=== PATIENT | male | born 1960 | race Caucasian/White ===

== ENCOUNTER 2020-09-06 03:50 | Emergency (ER) | payer OTHER, BC, SELFPAY ==
[2020-09-06] VITALS (8 sets, daily range): BP systolic 103–134; BP diastolic 68–85; PULSE 97–120; RESP 16–20; O2SAT 97–99; BMI 41.5
--- NOTE | ~2020-09-06 | XR_ITS ---
EXAMINATION: XR KNEE, LEFT CLINICAL INFORMATION: [place] a pop, slipped with increasing pain, swelling COMPARISON: None TECHNIQUE: Four views of the left knee. FINDINGS: Osseous alignment is anatomic. There is moderate degenerative change of the patellofemoral compartment with joint space narrowing and spurring. Mild spurring is present at the medial and lateral compartments, with mild medial joint space narrowing. No acute fracture is seen. Small effusion is noted. XR/XR knee LT 4V IMPRESSION: Small effusion. Degenerative changes, most prominently in the patellofemoral compartment.
--- NOTE | 2020-09-06 04:36 | ED_ITS ---
HPI - Extremity Injury (Lower) General Chief Complaint: Extremity Injury, Lower Stated Complaint: potential broken left knee cap Time Seen by Provider: 09/06/20 04:36 Source: patient Mode of arrival: ambulatory History of Present Illness HPI Narrative: 60-year-old male with history of atrial fibrillation, right lower extremity amputee who presents with having slipped and injured his left knee but and able to recall exact mechanism other than patient states that he ?felt a pop?. He and his got home at approximately 2:00 p.m. yesterday and he has been elevating and icing the leg since that time, however he states that the pain has progressively worsened but denies any numbness/tingling distal to the knee. Shortness of breath, chest pain/palpitations. Related Data Previous Rx's Medication Instructions Recorded amoxicillin-pot clavulanate 1 tab PO Q12H 5 Days #10 tab 09/06/20 [Augmentin] Allergies Allergy/AdvReac Type Severity Reaction Status Date / Time azithromycin Allergy Unknown Verified 09/06/20 04:02 Review of Systems Review of Systems: Pertinent positives and negatives as stated in HPI 10 point review of systems is otherwise negative. [facility] Past Medical History Source: nursing notes reviewed Medical History Afib Amputated right leg Surgical History History of cholecystectomy Social History Social History Advance Directives: No Advance Directives Information Provided: No Physical Exam Vital Signs: Vital Signs: Last Vital Signs Pulse 106 H 09/06/20 06:58 Resp 16 09/06/20 06:58 BP 125/81 09/06/20 06:58 Pulse Ox 99 09/06/20 06:58 Body Mass Index 41.5 VITAL SIGNS: Reviewed. GENERAL: Well developed, well nourished, in no acute distress. HEAD: Normocephalic/atraumatic EYES: PERRLA, EOMI OROPHARYNX: no oral lesions noted, posterior pharynx clear LUNGS: Normal breath sounds. No adventitious sounds or accessory muscle use. SpO2<99> CARDIOVASCULAR: Regular rate and rhythm without noted murmurs, NO JVD AND NO LOWER EXTREMITY EDEMA ABDOMEN: Soft, non-tender, non-distended with bowel sounds. LEFT KNEE: SWELLING, TENDERNESS TO PALPATION ALONG BOTH LATERAL/MEDIAL TIBIAL PLATEAU WITH GOOD MOVEMENT OF THE PATELLA BUT NO ECCHYMOSIS NOTED, CLARISSA ROVASCULARLY INTACT SKIN: Inspection of the skin reveals no rashes NEUROLOGIC: Alert and oriented x 4. Strength and sensation to light touch were grossly intact x 4. Course Course Course Narrative: 60-year-old male with history and clinical presentation consistent with left knee injury. After patient endorsed that he has a history of atrial fibrillation he was placed on a monitor and was noted to be in atrial fibrillation with RVR. At this point lab work, EKG, as well as left knee imaging was obtained. And patient was provided with 5 mg in total of Lopressor. Review of all laboratory results patient was noted to be mildly hypokalemic and was provided with 60 mEq of potassium chloride and it was also noted that patient had elevated T bili/AST without evidence of hepatobiliary findings on history or clinical exam. 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 On re-evaluation after patient received 5 mg of Lopressor his heart rate is noted to be in the low 100s with good maintenance of blood pressure and he will be discharged in stable condition with instructions to follow-up with his primary care provider today regarding better rate control, his elevated liver enzymes, the red swollen area at his right BKA and finally the left knee pain. MDM - Extremity Injury (Lower) Lab Data Result diagrams: 09/06/20 05:04 09/06/20 05:04 Labs: Lab Results 09/06/20 09/06/20 09/06/20 Range/Units 05:04 05:04 05:04 WBC 10.1 (4.8-10.8) X10*3/uL RBC 4.46 L (4.60-5.80) X10*6/uL Hgb 15.2 (14.0-18.0) g/dl Hct 43.1 (42-52) % MCV 96.6 (80-98) fL MCH 34.1 H (27.0-33.0) pg MCHC 35.3 (31.0-36.0) g/dl RDW 12.6 (11.0-16.0) % Plt Count 214 (160-400) X10*3/uL MPV 9.8 (9.4-12.4) fL Immature Gran % (Auto) 0.2 (0.0-0.4) % Neut % (Auto) 71.8 (45-73) % Lymph % (Auto) 8.5 L (20-40) % [place] % (Auto) 19.0 H (2-11) % Eos % (Auto) 0.0 (0-4) % Baso % (Auto) 0.5 (0-2) % Lymph # (Auto) 0.9 L (1.2-4.9) X10*3/uL [place] # (Auto) 1.9 H (0.1-1.2) X10*3/uL Eos # (Auto) 0.0 (0.0-0.4) X10*3/uL Baso # (Auto) 0.1 (0.0-0.2) X10*3/uL Abs Immat Gran (auto) 0.02 (0.00-0.03) X10*3/uL Absolute Neuts (auto) 7.3 (2.0-8.3) X10*3/uL Absolute Nucleated RBC 0.000 (0.0-0.012) X10*3/uL Nucleated RBC % (auto) 0.0 (0.0-0.2) /100WBC Smear Tech's Comments VERIFIED PT 25.7 H (9.9-13.0) SEC INR 2.2 H (0.9-1.1) Sodium 137 (135-145) mmol/L Potassium 3.2 L (3.3-5.1) mmol/L Chloride 99 (96-108) mmol/L Carbon Dioxide 26 (22-29) mmol/L Anion Gap 15 (12-20) BUN 13 (9-16) mg/dL Creatinine 0.81 (0.5-1.4) mg/dL Estim Creat Clear Calc 162.6 Estimated GFR > 60 Random Glucose 144 H (60-115) mg/dL Calcium 9.0 (8.4-10.2) mg/dL Total Bilirubin 3.4 H (0.0-1.0) mg/dL AST 58 H (5-37) U/L ALT 34 (0-40) U/L Alkaline Phosphatase 65 (39-117) U/L Total Protein 6.7 (6.5-8.0) g/dL Albumin 3.8 (3.5-5.0) g/dL ECG Data Attestation: I personally reviewed and interpreted this ECG as follows: Prior ECG tracings: available for review (04/27/2002 acute changes as patient has been diagnosed with atrial fibrillation since this time but receives care [facility] Interpretation: Atrial fibrillation with RVR, HR-116, no STEMI, QRS within normal limits Discharge Plan Discharge Clinical Impression: Hypokalemia, Atrial fibrillation, Cellulitis, Elevated liver enzymes, Knee pain, left Patient Disposition: Home, Self-Care Instructions: A-fib (Atrial Fibrillation) (ED), Cellulitis (ED), Hypokalemia (ED), Knee Pain (ED) Additional Instructions: 1. Resume all home medications as prescribed. 2. Please follow-up with your primary care provider to day and discuss the following: - hypokalemia (3.2) - total bilirubin-3.4 - AST-58 - infection at right lower extremity soft tissue (started on antibiotics) - consideration for heart medication adjustment - left knee pain Return to the ER for acute worsening of symptoms. Prescriptions: New amoxicillin-pot clavulanate [Augmentin] 875-125 mg tablet 1 tab PO Q12H 5 Days Qty: 10 RF: 0 Referrals: Physician,Unknown [Primary Care Provider] - 2 days
--- NOTE | 2020-09-06 04:39 | ECG_ITS ---
Test Reason : AFIB Blood Pressure : / mmHG Vent. Rate : 116 BPM Atrial Rate : 125 BPM P-R Int : 000 ms QRS Dur : 096 ms QT Int : 360 ms P-R-T Axes : 000 022 -14 degrees QTc Int : 500 ms Atrial fibrillation with rapid ventricular response Nonspecific ST abnormality Abnormal ECG When compared with ECG of 27-APR-2002 07:09, Atrial fibrillation has replaced Sinus rhythm Vent. rate has increased BY 66 BPM Nonspecific T wave abnormality now evident in Anterior leads Referred By: Lexy Mac Electronically Signed By:Nathan Rosario
[2020-09-06 05:09] LABS: Basophils Absolute Auto 0.1 X10*3/uL (0.0-0.2); Basophils Percent Auto 0.5 % (0-2); Hematocrit 43.1 % (42-52); Hemoglobin 15.2 g/dl (14.0-18.0); Imm Gran Abs Auto 0.02 X10*3/uL (0.00-0.03); Imm Gran Pct Auto 0.2 % (0.0-0.4); Lymphocytes Absolute Auto 0.9 X10*3/uL (1.2-4.9); Lymphocytes Percent Auto 8.5 % (20-40); Mean Corpuscular HGB Conc 35.3 g/dl (31.0-36.0); Mean Corpuscular Hemoglobin 34.1 pg (27.0-33.0); Mean Corpuscular Volume 96.6 fL (80-98); Mean Platelet Volume 9.8 fL (9.4-12.4); Monocytes Absolute Auto 1.9 X10*3/uL (0.1-1.2); Neutrophils Absolute Auto 7.3 X10*3/uL (2.0-8.3); Neutrophils Percent Auto 71.8 % (45-73); Platelet Count 214 X10*3/uL (160-400); Red Blood Count 4.46 X10*6/uL (4.60-5.80); Red Cell Distribution Width 12.6 % (11.0-16.0); SCAN SMEAR FLAG 1; White Blood Count 10.1 X10*3/uL (4.8-10.8)
[2020-09-06] MEDS: Acetaminophen 325 MG TABLET 975 MG PO (05:09)
[2020-09-06 05:10] LABS: MANUAL DIFF FLAG SCAN
[2020-09-06] MEDS: Ketorolac Tromethamine 15 MG/ML VIAL IVPUSH (05:10)
[2020-09-06 05:16] LABS: INTERNATIONAL NORM RATIO 2.2 (0.9-1.1); Prothrombin Time 25.7 SEC (9.9-13.0)
[2020-09-06 05:26] LABS: SLIDE REVIEW VERIFIED
[2020-09-06 05:38] LABS: Alanine Aminotransferase 34 U/L (0-40); Albumin Level 3.8 g/dL (3.5-5.0); Alkaline Phosphatase 65 U/L (39-117); Anion Gap 15 (12-20); Aspartate Amino Transferase 58 U/L (5-37); Bilirubin Total 3.4 mg/dL (0.0-1.0); Blood Urea Nitrogen 13 mg/dL (9-16); Carbon Dioxide 26 mmol/L (22-29); Chloride 99 mmol/L (96-108); Creatinine Clr Calc Pharmacy 162.6; Estimated Glomerular Filt Rate > 60; Glucose Random 144 mg/dL (60-115); Potassium 3.2 mmol/L (3.3-5.1); Sodium 137 mmol/L (135-145); Total Protein 6.7 g/dL (6.5-8.0)
[2020-09-06] MEDS: Metoprolol Tartrate 5 MG/5 ML VIAL 2.5 MG IVPUSH ×2 (06:14→06:49)
[2020-09-06] MEDS: Potassium Chloride ER 20 MEQ TAB.ER.PRT 60 MEQ PO (06:53)
== END 2020-09-06 07:56 | disposition home or self-care (01) ==
PROVIDERS: Emergency Provider Student in an Organized Health Care Education/Training Program
DX: M25.562 Pain in left knee (principal); E87.6 Hypokalemia; L03.115 Cellulitis of right lower limb; R74.8 Abnormal levels of other serum enzymes; I48.91 Unspecified atrial fibrillation; Z89.511 Acquired absence of right leg below knee
CPT/HCPCS: 36415; 73564; 80053; 85025; 85610; 93005; 96374; 96375; 99284; J1885

== ENCOUNTER 2024-05-04 01:51 | Inpatient (IN) | payer OTHER, SELFPAY ==
[2024-05-04] VITALS (9 sets, daily range): BP systolic 113–150; BP diastolic 64–95; PULSE 100–120; RESP 16–20; TEMP 36.4–37.1; O2SAT 95–98; BMI 38.9; BMI 34.9; BMI 36.5
--- NOTE | 2024-05-04 | ECG_ITS ---
Test Reason : TACHY Blood Pressure : */* mmHG Vent. Rate : 110 BPM Atrial Rate : * BPM P-R Int : * ms QRS Dur : 92 ms QT Int : 346 ms P-R-T Axes : * 9 262 degrees QTcB Int : 468 ms Atrial fibrillation with rapid ventricular response Nonspecific T wave abnormality Abnormal ECG When compared with ECG of 06-Sep-2020 05:19, Nonspecific T wave abnormality now evident in Lateral leads Referred By: Generic ED Physician Electronically Signed By: PENELOPE SHETTY
--- NOTE | ~2024-05-04 | MR_ITS ---
CLINICAL HISTORY: new onset seizures,motion degraded images, best obtainable, exam ended due to safet y concern, no contrast given MR brain without contrast. COMPARISON: CT head dated 05/04/24 at 02:30 EDT FINDINGS: Evaluation of multiple sequences is limited secondary to motion artifact. No abnormal diffusion restriction in the brain parenchyma or extra-axial spaces. No evidence of mass, mass effect or midline shift. No intracranial hemorrhage or abnormal extra-axial fluid collection. The ventricles are proportional with the degree of mild cerebral volume loss without evidence of hydrocephalus. Basilar cisterns are patent. Cerebellar hemispheres and cerebellar vermis are normal. Fourth ventricle is normal. No brainstem abnormality is identified. Intracranial flow voids are patent. The visualized paranasal sinuses and mastoid air-cells are clear. IMPRESSION: 1. Motion artifact limits evaluation portions of the study. Within limits of study, no acute intracranial injury. No evidence of acute ischemia, mass or mass effect. This document has been electronically signed by: Elder Ta MD on 05/04/2024 18:52:17
--- NOTE | ~2024-05-04 | CT_ITS ---
CLINICAL HISTORY: Altered mental status, possible seizure, R O CT head without contrast Comparison: None Findings: No intra-axial mass, midline shift, hydrocephalus, or acute hemorrhage. Mild atrophy like change. There is no sinus or mastoid fluid. The orbits are unremarkable. There is no acute fracture. IMPRESSION: 1. No acute intracranial findings. This document has been electronically signed by: Chrystal Nicholson MD on 05/04/2024 03:36:58
--- NOTE | ~2024-05-04 | XR_ITS ---
EXAMINATION: XR SHOULDER, RIGHT CLINICAL INFORMATION: pain, fall COMPARISON: None available. TECHNIQUE: AP external rotation, Grashey, scapular Y, and axillary views of the right shoulder. FINDINGS: Normal bone mineralization. No fracture, dislocation, or suspicious bone lesion. Normal alignment. The glenohumeral joint demonstrates mild to moderate osteoarthrosis with small subcapital and undersurface glenoid spurs. The AC joint is normal. There is a type II acromion. No undersurface spurring. The subacromial space is preserved. Remainder of the soft tissue and bony structures appear normal. XR/XR shoulder RT min 2V IMPRESSION: 1. Mild to moderate glenohumeral joint osteoarthrosis. 2. No acute bony abnormalities. Otherwise normal exam. Electronically signed by: Herber Nicholson MD 05/05/2024 08:34 AM EDT
[2024-05-04 02:14] LABS: Basophils Absolute Auto 0.1 X10*3/uL (0.0-0.2); Basophils Percent Auto 0.5 % (0-2); Eosinophils Percent Auto 0.3 % (0-4); Hematocrit 44.2 % (42.0-52.0); Hemoglobin 15.3 g/dl (14.0-18.0); Imm Gran Abs Auto 0.04 X10*3/uL (0.00-0.03); Imm Gran Pct Auto 0.4 % (0.0-0.4); Lymphocytes Absolute Auto 0.7 X10*3/uL (1.2-4.9); Lymphocytes Percent Auto 7.7 % (20-40); MANUAL DIFF FLAG NO; Mean Corpuscular HGB Conc 34.6 g/dl (31.0-36.0); Mean Corpuscular Hemoglobin 29.6 pg (27.0-33.0); Mean Corpuscular Volume 85.5 fL (80.0-98.0); Mean Platelet Volume 9.5 fL (9.4-12.4); Monocytes Absolute Auto 0.4 X10*3/uL (0.1-1.2); Monocytes Percent Auto 4.4 % (2-11); Neutrophils Absolute Auto 8.2 x10*3/uL (2.0-8.3); Neutrophils Percent Auto 86.7 % (45-73); Platelet Count 274 X10*3/uL (160-400); Red Blood Count 5.17 X10*6/uL (4.60-5.80); Red Cell Distribution Width 18.6 % (11.0-16.0); White Blood Count 9.5 X10*3/uL (4.8-10.8)
--- OUTSIDE RECORDS SUMMARY | 2024-05-04 02:23 | XMS_ITS | Encounter Summary ---
Author Name [facility] [place] [facility] [place] Address [address] [place] [address] Care Team Providers Care Bridge Mechanic Name Role Phone JUAN GOMEZ Primary Care Provider Unavaileddie ble Insurance Providers: All historical and current Section Date Range: From patient's date of to the date document was created. This section includes the names of all active insurance providers for the patient. Insurance Provider Type of Coverage Plan Name Start of Policy Coverage End of Policy Coverage Group Number Member ID Insurance Provider's Telephone Number Policy Carr's Name Patient's Relationship to Policy Carr SAEED BCBS CT FEDERAL PREFERRED PROVIDER ORGANIZAT ION (PPO) STAND JESSE FAMIL Y Mar 07, 2000 105 [id number] [phone] JAY KRISHNA PATIENT ANTHEM BCBS FEDERAL PREFERRED PROVIDER ORGANIZAT ION (PPO) STAND JESSE FAMIL Y Mar 07, 2000 105 [id number] JAY KRISHNA PATIENT ANTHEM BCBS FEDERAL PREFERRED PROVIDER ORGANIZAT ION (PPO) STAND JESSE SELF Mar 07, 2000 105 [id number] JAY KRISHNA PATIENT BCBS [place] PREFERRED PROVIDER ORGANIZAT ION (PPO) STAND JESSE FAMIL Y Mar 07, 2000 105 [id number] JAY KRISHNA PATIENT [place] PREFERRED PROVIDER ORGANIZAT ION (PPO) STAND JESSE FAMIL Y Mar 07, 2000 105 [id number] JAY KRISHNA PATIENT [place] DENTAL DENTAL INSURANCE STAND JESSE Mar 07, 2000 DENTAL [id number] 15 JAY KRISHNA PATIENT [place] PREFERRED PROVIDER ORGANIZAT ION (PPO) STAND JESSE FAMIL Y Mar 07, 2000 105 [id number] 15 JAY KRISHNA PATIENT [place] FEDERAL PREFERRED PROVIDER ORGANIZAT ION (PPO) STAND JESSE FAMIL Y Mar 07, 2000 105 [id number] [phone] [id number] JAY KRISHNA PATIENT [place] FEP BCBS PRESCRIPT ION CAREM ARK FEPRX PLAN Mar 07, 2000 [id number] JAY KRISHNA PATIENT [place] FEPRX PLAN PRESCRIPT ION CAREM ARK FEPRX Feb 23, 2010 [id number] JAY KRISHNA PATIENT [place] FEPRX PLAN PRESCRIPT ION CAREM ARK FEPRX Mar 07, 2000 [id number] JAY KRISHNA PATIENT CAREMARK-F EP BCBS PRESCRIPT ION BCBS FEP Feb 23, 2010 [id number] JAY KRISHNA PATIENT CAREMARK-F EP BCBS PRESCRIPT ION FEP CAREM ARK Feb 23, 2010 [id number] JAY KRISHNA PATIENT [place]ARK-F EP BCBS PRESCRIPT ION BCBS FEP PLAN Feb 23, 2010 [id number] JAY KRISHNA PATIENT MEDICARE ([facility]) MEDICARE () PART A May 25, 2011 PART A [id number] [facility] [phone] JAY KRISHNA PATIENT MEDICARE ([facility]) MEDICARE () PART A May 25, 2011 PART A [id number] JAY KRISHNA PATIENT MEDICARE ([facility]) MEDICARE () PART A May 25, 2011 PART A [id number] [facility] [phone] [id number] JAY KRISHNA PATIENT MEDICARE (WNR) MEDICARE (M) PART A May 25, 2011 PART A [id number] [phone] JAY KRISHNA PATIENT MEDICARE (WNR) MEDICARE (M) PART A May 25, 2011 PART A [id number] [facility] JAY KRISHNA PATIENT MEDICARE (WNR) MEDICARE (M) PART A May 25, 2011 PART A [id number] [facility] JAY KRISHNA PATIENT MEDICARE (WNR) MEDICARE (M) PART A May 25, 2011 PART A [id number] JAY KRISHNA PATIENT MEDICARE (WNR) MEDICARE (M) PART A May 25, 2011 PART A [id number] JAY KRISHNA PATIENT Selected Encounter This section includes the information on record at [place] for the Encounter. Date/Time Encounter Type Encounter Description Reason Pro vider Source Apr 22, 2024 11:33 AM Outpatient Encounter ADMIN PAT ACTIVTIES (MASNONCT) IHE Encounter Template Text not used by [place] Plan of Treatment: Future Appointments (+ 6 months) and Future Tests (+/- 45 days) The Plan of Treatment section includes future care activities for the patient from all [place] [facility]. This section includes future appointments and future orders which are active, pending or scheduled. Future Appointments This section includes appointments that were scheduled to occur 6 months from the date of the Encounter, up to a maximum of 20 appointments. The data comes from all [place] treatment facilities. Appointment Date/Time Appointment Type Appointme nt Facility Name Apr 27, 2024 09:30 AM AMBULATORY - MEDICINE [place] [facility] [place] [facility] Apr 27, 2024 10:00 AM AMBULATORY - MEDICINE [place] [facility] [place] [facility] Apr 28, 2024 09:30 AM AMBULATORY - MEDICINE [place] [facility] [place] [facility] May 03, 2024 08:00 AM AMBULATORY - MEDICINE [place] [facility] [place] [facility] May 10, 2024 10:00 AM AMBULATORY - MEDICINE [place] [facility] [place] [facility] June 29, 2024 10:30 AM AMBULATORY - MEDICINE [place] [facility] [place] [facility] Aug 08, 2024 09:30 AM [facility] Aug 09, 2024 11:00 AM AMBULATORY - MEDICINE [facility] Active, Pending, and Scheduled Orders This section includes a listing of several types of active, pending, and scheduled orders, including clinic medications orders, diagnostic test orders, procedure orders and consult orders; where the start date of the order is 45 days before the date of the Encounter or 45 days after the date of theEncounter. The data comes from all [place] treatment facilities. Test Date/Time Test Type Test Details Facility Name Apr 13, 2024 12:00 AM Laboratory - Chemi stry Order BASIC METABOLIC PANEL (non-fasting) BLOOD (SST-SERUM) SP [facility] Apr 25, 2024 12:55 PM Consult Order COMMUNITY CARE-DENTAL GENERAL Cons Hand Cigar Maker's Choice [facility] Apr 27, 2024 12:00 AM Laboratory - Chemi stry Order SURGICAL PATH ORDER SURG PATH SPEC. UNKNOWN [facility] Apr 27, 2024 03:38 PM Consult Order SURGERY/CW M OUTPT Cons Hand Cigar Maker's Choice [facility] May 03, 2024 04:19 PM Consult Order EYEGLASS R EQUEST - 4 SIGHT Cons Hand Cigar Maker's Choice [facility] May 03, 2024 04:19 PM Consult Order EYEGLASS R EQUEST - 4 SIGHT Cons Hand Cigar Maker's Choice [facility] May 03, 2024 04:19 PM Consult Order EYEGLASS R EQUEST - 4 SIGHT Cons Hand Cigar Maker's Choice [facility] Social History: Smoking Status (Most current) and Tobacco Use (All prior to encounter date) This section includes the most current, and the historical, smoking and tobacco- related health factors from the [place] facility where the Encounter took place. Current Smoking Status This section includes the most current smoking, or tobacco-related health factor, from the [place] facility where the Encounter took place. Date/Time Current Smoking Status Comment Facil ity July 24, 2023 10:00 AM VA-TOBACCO FORMER USER [facility] Tobacco Use History This section includes a history of the smoking, or tobacco-related health factors, that were collected on or before the date of the Encounter. The data comes from the [place] facility where the Encounter took place. Date/Time Smoking Status/Tobac co Use Comment Facility July 24, 2023 10:00 AM VA-TOBACCO QUIT 15 YRS OR MORE [place] [facility] [place] [facility] July 14, 2022 03:30 PM VA-TOBACCO FORMER USER [place] [facility] [place] [facility] July 14, 2022 03:30 PM VA-TOBACCO QUIT 15 YRS OR MORE [facility] [place] [facility] Aug 05, 2021 01:00 PM VA-TOBACCO FORMER USER [place] [facility] [place] [facility] Aug 05, 2021 01:00 PM VA-TOBACCO QUIT 5 TO < 15 YRS [place] [facility] [place] [facility] Sep 09, 2019 01:25 PM VA-TOBACCO FORMER USER [place] [facility] [place] [facility] Sep 09, 2019 01:25 PM VA-TOBACCO QUIT 5 TO < 15 YRS [place] [facility] [place] [facility] Dec 04, 2017 10:18 AM VA-TOBACCO FORMER USER [place] [facility] [place] [facility] Dec 04, 2017 10:18 AM VA-TOBACCO QUIT 5 TO < 15 YRS [facility] [place] [facility] May 29, 2017 09:09 AM QUIT TOBACCO USE > 7 YEARS AGO [facility] [place] [facility] Apr 23, 2015 08:21 AM QUIT TOBACCO USE > 7 YEARS AGO [place] [facility] [place] [facility] Apr 23, 2015 08:21 AM QUIT TOBACCO USE 1-7 YEARS AGO [facility] [place] [facility] Mar 06, 2011 11:06 AM QUIT TOBACCO USE 1-7 YEARS AGO [facility] [place] [facility] Apr 08, 2010 10:56 AM CURRENT SMOKER cigar once in a while [facility] [place] [facility] Apr 08, 2010 10:56 AM V1-PT DECLINES REF TO TOBACCO CESS PRGM [place] [facility] [place] [facility] Apr 08, 2010 10:56 AM V1-PT DECLINES TOBACCO CESSATION MEDS [facility] Apr 08, 2010 10:56 AM V1-PT READY TO QUIT TOBACCO USE [facility] Feb 21, 2009 09:16 AM CURRENT SMOKER cigar once in a while [facility] Feb 21, 2009 09:16 AM V1-PT DECLINES REF TO TOBACCO CESS PRGM [facility] Feb 21, 2009 09:16 AM V1-PT DECLINES TOBACCO CESSATION MEDS [facility] Feb 21, 2009 09:16 AM V1-PT THINKING ABOUT QUIT TOBACCO USE [facility] Dec 16, 2007 09:15 AM QUIT TOBACCO USE 1-7 YEARS AGO [facility] Apr 01, 2007 11:08 AM QUIT TOBACCO USE 1-7 YEARS AGO [facility] Sep 28, 2006 08:52 AM QUIT TOBACCO USE IN PAST YEAR [facility] Apr 21, 2006 10:31 AM QUIT TOBACCO USE IN PAST YEAR August 2005 [facility] Dec 16, 2005 10:02 AM CURRENT SMOKER OCCASIONAL CIGAR [facility] May 19, 2001 03:50 PM CURRENT SMOKER see below [facility] Pathology Reports: +/- 30 days of the encounter Pathology Reports For cases when an order for pathology services may have been completed prior to the date of the Encounter, the report list includes the Pathology Reports that were completed up to 30 days before dateof the Encounter. For cases when an order for pathology services may have been completed after the date of the Encounter, the report list also includes the Pathology Reports that were completed up to30 days after date of the Encounter. The data comes from all [facility] facilities. Date/Time Pathology Report Provider Source May 02, 2024 10:07 AM LR SURGICAL PATHOLOGY REPORT: LOCAL TITLE: LR SURGICAL PATHOLOGY REPORT STANDARD TITLE: PATHOLOGY REPORT DATE OF NOTE: MAY 02, 2024@10:07:13 ENTRY DATE: MAY 02, 2024@10:07:13 AUTHOR: RADHA MARTINEZ MD EXP COSIGNER: URGENCY: STATUS: COMPLETED $APHDR Reporting Lab: [facility] [CLIA# [id number]] [address] [place] [address] - - - - - - - - - - - - - - - - - - - - - - - - - - - - - - - - - - - - - - - - MEDICAL RECORD RSURGICAL PATHOLOGY - - - - - - - - - - - - - - - - - - - - - - - - - - - - - - - - - - - - - - - - PATHOLOGY REPORT Accession No. [id number] [id number] - - - - - - - - - - - - - - - - - - - - - - - - - - - - - - - - - - - - - - - - $TEXT Submitted by: CLARK ZUNIGA Date obtained: Apr 27, 2024 - - - - - - - - - - - - - - - - - - - - - - - - - - - - - - - - - - - - - - - - Specimen (Received Apr 28, 2024): A:LEFT UPPER BACK SKIN([id number]) B:RIGHT UPPER BACK SKIN([id number]) - - - - - - - - - - - - - - - - - - - - - - - - - - - - - - - - - - - - - - - - BRIEF CLINICAL HISTORY: A. 0.2 cm hyperpigmented macule with irregular network. B. 0.4 cm papule with irregular network - - - - - - - - - - - - - - - - - - - - - - - - - - - - - - - - - - - - - - - - PREOPERATIVE DIAGNOSIS: A/B. Atypical nevus - - - - - - - - - - - - - - - - - - - - - - - - - - - - - - - - - - - - - - - - OPERATIVE FINDINGS: - - - - - - - - - - - - - - - - - - - - - - - - - - - - - - - - - - - - - - - - POSTOPERATIVE DIAGNOSIS: Surgeon/physician: =-=-=-=-=-=-=-=-=-=-=-=-=-=- =-=-=-=-=-=-=-=-=-=-=-=-=-=- =-=-=-=-=-=-=-=-=-=-=-= - - - - - - - - - - - - - - - - - - - - - - - - - - - - - - - - - - - - - - - - PATHOLOGY REPORT Accession No. [facility] 1510 - - - - - - - - - - - - - - - - - - - - - - - - - - - - - - - - - - - - - - - - GROSS DESCRIPTION: The specimen is recieved from [facility] 1510;A;1;KRISHNA,Luis A. Received in formalin labeled with the patient's name, social security number, and left upper back is an unoriented, puga-negrete skin shave measuring 0.6 x 0.4 x 0.1 cm. There is a dark brown, well-circumscribed, macular lesion measuring 0.3 x 0.2 cm located 0.1 cm from the margin. Inked orange. The specimen is entirely submitted with tips in cassette A1 and body cross section in cassette A2. B. Received in formalin labeled with the patient's name, social security number, and right upper back is an unoriented, puga-negrete skin shave measuring 0.5 x 0.5 x 0.1 cm. There is a well-circumscribed, puga to dark brown, macular lesion measuring 0.3 x 0.3 cm located 0.1 cm from the margin. Inked black. The specimen is entirely submitted with tips in cassette B1 and body cross section in cassette B2. GIA Pacheco (ASCP) 04/28/2024 /daniela/ Radha Martinez MD, FRCPath Board Certified Dermatopathologist Signed May 02, 2024@10:07 Performing Laboratory: Surgical Pathology Report Performed By: [facility] [CLIA# [id number]] [address] [place] [phone] $FTR - - - - - - - - - - - - - - - - - - - - - - - - - - - - - - - - - - - - - - - - (End of report) RADHA MARTINEZ MD, MD Date May 02, 2024 - - - - - - - - - - - - - - - - - - - - - - - - - - - - - - - - - - - - - - - - JAY KRISHNA STANDARD FORM 515 ID:[id number] SEX:M :1960 AGE: 64 LOC:*[facility] PCP: /es/ Radha Martinez MD, FRCPath Board Certified Dermatopathologist Signed: 05/02/2024 10:07 RADHA MARTINEZ MD [facility] May 02, 2024 10:04 AM LR SURGICAL PATHOLOGY REPORT: LOCAL TITLE: LR SURGICAL PATHOLOGY REPORT STANDARD TITLE: PATHOLOGY DIAGNOSTIC STUDY REPORT DATE OF NOTE: MAY 02, 2024@10:04:16 ENTRY DATE: MAY 02, 2024@10:04:16 AUTHOR: RADHA MARTINEZ MD EXP COSIGNER: URGENCY: STATUS: COMPLETED $APHDR Reporting [facility] [CLIA# [id number]] [address] [place] [id number] - - - - - - - - - - - - - - - - - - - - - - - - - - - - - - - - - - - - - - - - MEDICAL RECORD SURGICAL PATHOLOGY - - - - - - - - - - - - - - - - - - - - - - - - - - - - - - - - - - - - - - - - PATHOLOGY REPORT Accession No. SPATH [id number] - - - - - - - - - - - - - - - - - - - - - - - - - - - - - - - - - - - - - - - - $TEXT Submitted by: CLARK ZUNIGA Date obtained: Apr 27, 2024 12:23 - - - - - - - - - - - - - - - - - - - - - - - - - - - - - - - - - - - - - - - - Specimen (Received Apr 27, 2024 12:24): SPECIMEN A, L UPPER BACK SPECIMEN B, R UPPER BACK - - - - - - - - - - - - - - - - - - - - - - - - - - - - - - - - - - - - - - - - BRIEF CLINICAL HISTORY: SPECIMEN A- L UPPER BACK 2MM HYPERPIGMENTED MACILE WITH IRREGULAR NETWORK SPECIMEN B- R UPPER BACK 4MM PAPULE WITH IRREGULAR NETWORK - - - - - - - - - - - - - - - - - - - - - - - - - - - - - - - - - - - - - - - - PREOPERATIVE DIAGNOSIS: SPECIMEN A- ATYPICAL NEVI SPECIMEN B- ATYPICAL NEVI - - - - - - - - - - - - - - - - - - - - - - - - - - - - - - - - - - - - - - - - OPERATIVE FINDINGS: - - - - - - - - - - - - - - - - - - - - - - - - - - - - - - - - - - - - - - - - POSTOPERATIVE DIAGNOSIS: Surgeon/physician: CLARK ZUNIGA =-=-=-=-=-=-=-=-=-=-=-=-=-=- =-=-=-=-=-=-=-=-=-=-=-=-=-=- =-=-=-=-=-=-=-=-=-=-=-= - - - - - - - - - - - - - - - - - - - - - - - - - - - - - - - - - - - - - - - - PATHOLOGY REPORT Accession No. [facility] - - - - - - - - - - - - - - - - - - - - - - - - - - - - - - - - - - - - - - - - Gross description: The specimen is recieved from [facility]/Mandi jane, [facility] 8548;A;1;Luis KRISHNA. Received in formalin labeled with the patient's name, social security number, and left upper back is an unoriented, puga-negrete skin shave measuring 0.6 x 0.4 x 0.1 cm. There is a dark brown, well-circumscribed, macular lesion measuring 0.3 x 0.2 cm located 0.1 cm from the margin. Inked orange. The specimen is entirely submitted with tips in cassette A1 and body cross section in cassette A2. B. Received in formalin labeled with the patient's name, social security number, and right upper back is an unoriented, puga-negrete skin shave measuring 0.5 x 0.5 x 0.1 cm. There is a well-circumscribed, puga to dark brown, macular lesion measuring 0.3 x 0.3 cm located 0.1 cm from the margin. Inked black. The specimen is entirely submitted with tips in cassette B1 and body cross section in cassette B2. GIA Pacheco ([facility]) 04/28/2024 A. Skin, left upper back: Lentiginous junctional melanocytic nevus, dysplastic type with moderate cytologic atypia, completely excised. B. Skin, right upper back: Lentiginous compound melanocytic nevus with moderate cytologic atypia and some features suggestive of congenital onset and special site , very closely approaching the lateral tissue margins. Note: If the lesion is large and clinical suspicion persists, complete excision is recommended for further evaluation and treatment. CPT codes 63259x1 /daniela/ RADHA MARTINEZ MD Board Certified Dermatopathologist Signed May 02, 2024@10:04 Performing Laboratory: Surgical Pathology Report Performed By: [facility] [CLIA# [id number]] [address] [place] [address] $FTR - - - - - - - - - - - - - - - - - - - - - - - - - - - - - - - - - - - - - - - - (End of report) RADHA MARTINEZ MD, MD Date May 02, 2024 - - - - - - - - - - - - - - - - - - - - - - - - - - - - - - - - - - - - - - - - JAY KRISHNA STANDARD FORM 515 ID:[id number] SEX:M :1960 AGE: 64 LOC:[facility] DERMATOLOGY GAS DERRICK OPERATOR 1 PM PCP: Juan Gomez NP /daniela/ RADHA MARTINEZ MD Board Certified Dermatopathologist Signed: 05/02/2024 10:04 RADHA MARTINEZ MD [facility] Encounter Notes: All associated encounter notes This section contains the clinical notes associated to the Encounter. Date/Time Encounter Note(s) Provider Source Apr 22, 2024 11:33 AM ADMINISTRATIVE NOT E: LOCAL TITLE: CCC: SCHEDULING ADMINISTRATION STANDARD TITLE: ADMINISTRATIVE NOTE DATE OF NOTE: APR 22, 2024@11:33:58 ENTRY DATE: APR 22, 2024@11:33:58 AUTHOR: JENY HELMS EXP COSIGNER: URGENCY: STATUS: COMPLETED CCC: SCHEDULING ADMINISTRATION Has ADDENDA Patient Demographics Patient Name: JAY KRISHNA Patient Primary Phone: [phone] Patient Primary Address: [address] [place] [address] [place] [address] Patient : 1960 Patient Age: 64 Caller/Recipient Relation to Patient: Self Caller Name: JAY KRISHNA Administrative Administrative Note Reason: Medication Renewal [place] Medications Refill/Renewal Request: TO BE MAILED 1. - [id number] - 0.5 TABLET - TAKE ONE-HALF TABLET BY MOUTH EVERY EVENING FOR CHOLESTEROL - 1 - [facility] - 631 - IMPORTANT: This note was created by [facility] Contact [facility] staff. Please do not alert the staff member by adding them as a signer for future communications. Alerts are not monitored by this user. /daniela/ JENY HELMS ADVANCED CERTIFIED DRUG COUNSELOR Signed: 04/22/2024 11:33 Receipt Acknowledged By: 04/22/2024 12:53 /es/ Juan Gomez DNP, MASSAGE THERAPY INSTRUCTOR-BC, CNL Primary Care Nurse Practitioner 04/22/2024 11:36 /daniela/ Ary ANDERSON RN CNL Primary Care RN 04/22/2024 ADDENDUM STATUS: COMPLETED Defer to PCP for requested renewal /daniela/ Ary ANDERSON RN CNL Primary Care RN Signed: 04/22/2024 11:37 JENY HELMS [facility]
--- OUTSIDE RECORDS SUMMARY | 2024-05-04 02:23 | XMS_ITS | Data Portability ---
Author Organization 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 Plan of Treatment Reminders Order Date Submit Date Provider Last Modified By Organization Details Last Modified Time Details Appointments None record ed. Lab lipid panel, serum 2024 025 SH[facility]NAM [facility] (Centralized Electronic Ordering - All Locations), Patient Can Go To The Location Of Their Choice, 10:40:57 CBC w/ auto diff 2024 025 [facility] (Centralized Electronic Ordering - All Locations), Patient Can Go To The Location Of Their Choice, 10:40:16 iron + total iron-b inding capaci ty (TIBC) , serum 2024 025 SH[facility] (Centralized Electronic Ordering - All Locations), Patient Can Go To The Location Of Their Choice, 10:40:16 ferrit in, serum or plasma 2024 025 SH[facility] (Centralized Electronic Ordering - All Locations), Patient Can Go To The Location Of Their Choice, 10:40:17 CBC w/ auto diff 2023 024 SH[facility] (Centralized Electronic Ordering - All Locations), Patient Can Go To The Location Of Their Choice, 13:59:49 CBC 2023 024 SH[facility] (Centralized Electronic Ordering - All Locations), Patient Can Go To The Location Of Their Choice, 22:06:00 HbA1c (hemog lobin A1c), blood 2023 SH[facility] (Centralized Electronic Ordering - All Locations), Patient Can Go To The Location Of Their Choice, 14:06:49 CMP, serum or plasma 2023 SH[facility] (Centralized Electronic Ordering - All Locations), Patient Can Go To The Location Of Their Choice, 14:06:48 Referral None record ed. Procedures None record ed. Surgeries None record ed. Imaging None record ed. Medication Orders oxycod one 5 mg tablet 2024 [facility] #[id number], [address], [place], [id number], 10:51:42 oxycod one 5 mg tablet 2024 [facility] #50053, [address], [place], [id number], 10:51:41 oxycod one 5 mg tablet 2024 025 [facility] #89762, [address], [place], [id number], 10:51:46 metopr olol succin ate ER 200 mg tablet ,exten ded releas e 24 hr 2024 025 [facility] #20414, [address], [place], [id number], 5 10:39:34 amoxic illin 500 mg capsul e 2024 025 [facility] #80742, [address], [place], [id number], 5 10:39:04 oxycod one 5 mg tablet 2023 024 [facility] #04031, [address], [place], [id number], 4 17:50:30 oxycod one 5 mg tablet 2023 024 [facility] #55870, [address], [place], [id number], 4 17:50:13 oxycod one 5 mg tablet 2023 024 [facility] #52955, [address], [place], [id number], 4 17:50:14 ferrou s glucon ate 324 mg (38 mg iron) tablet 2023 024 [facility] #41864, [address], [place], [id number], 5 10:37:33 ascorb ic acid (vitam in C) 500 mg tablet 2023 024 [facility] #89554, [address], [place], [id number], 5 10:37:19 valsar puga 160 mg tablet 2023 024 [facility] #90598, [address], [place], [id number], 4 17:39:57 pantop razole 40 mg tablet ,delay ed releas e 2023 [facility] #51767, [address], [place], [id number], 4 10:25:07 oxycod one 5 mg tablet 2023 [facility] #78003, [address], [place], [id number], 4 13:16:47 oxycod one 5 mg tablet 2023 [facility] #08504, [address], [place], [id number], 4 13:16:58 oxycod one 5 mg tablet 2023 [email or web address] #10390, [address], [place], [id number], 4 13:50:45 Ozempi c 2 mg/dos e (8 mg/3 mL) subcut aneous pen inject or 2023 [facility] #79393, [address], [place], [id number], 4 08:15:43 Patient TargetsNo targets recorded. Patient Instructions Encounter Date Encounter Id Patient Instructions Last Modified By Organization Details Last Modified Time 11/06/2023 [id number] I have reviewed the note and agree with the assessment and plan of care. [email or web address] Not available 11/06/2023 11:43:09 11/11/2023 [id number] atrial fibrillation: care instructions [email or web address] Not available 11/12/2023 08:17:40 At today's hospital follow up visit, all current and discharge medications (OTC, herbal therapies, supplements) reviewed and reconciled with patient and or caregiver, including potential side effects, drug interactions, instructions, and the consequences of not taking medication. Reviewed potential barriers to medication adherence, such as side effects from medication or cost of medication. [email or web address] Not available 11/11/2023 10:59:52 01/27/2024 [id number] iron deficiency anemia: care instructions [email or web address] Not available 01/27/2024 14:23:49 Medications (OTC, herbal therapies, supplements) reviewed and reconciled with patient and or caregiver, including potential side effects, drug interactions, instructions, and the consequences of not taking medication. Reviewed potential barriers to medication adherence, such as side effects from medication or cost of medication. [email or web address] Not available 01/27/2024 13:48:00 04/26/2024 [id number] high cholesterol: care instructions [email or web address] Not available 04/26/2024 10:40:55 iron deficiency anemia: care instructions [email or web address] Not available 04/26/2024 10:40:11 Reason for Referral None Reported. Results Created Date Observation Date Name Description Value Unit Range Abnormal Flag Note LastModifiedBy Organization Detail LastModifiedTime 11/02/1911/03/2023 COMP. METAB OLIC PANEL (14) glucose 116 mg/dL 70-99 above high normal Not Available [facility] ([facility]) [address] [place], [address], 11/03/2023 14:06:48 11/02/1911/03/2023 COMP. METAB OLIC PANEL (14) BUN 24 mg/dL 8-27 normal Not Available [facility] ([facility]) [address] [place], [address], 11/03/2023 14:06:48 11/02/1911/03/2023 COMP. METAB OLIC PANEL (14) creatinine 0.93 mg/dL 0.76-1 .27 normal Not Available [facility] ([facility]) [address] [place], [address], 11/03/2023 14:06:48 11/02/19 24 11/03/2023 COMP. METAB OLIC PANEL (14) eGFR 93 mL/mi n/1.7 3 >59 normal Not Available [facility] ([facility]) [address] [facility], [place], [address], 11/03/2023 14:06:48 11/02/19 24 11/03/2023 COMP. METAB OLIC PANEL (14) BUN/creatini ne ratio 26 10-24 above high normal Not Available [facility] ([facility]) [address] [facility], [place], [address], 11/03/2023 14:06:48 11/02/19 24 11/03/2023 COMP. METAB OLIC PANEL (14) sodium 140 mmol/ L 134-14 4 normal Not Available [facility] ([facility]) [address] [facility], [place], [address], 11/03/2023 14:06:48 11/02/19 24 11/03/2023 COMP. METAB OLIC PANEL (14) potassium 4.5 mmol/ L 3.5-5. 2 normal Not Available [facility] ([facility]) [address] [facility], [place], [address], 11/03/2023 14:06:48 11/02/19 24 11/03/2023 COMP. METAB OLIC PANEL (14) chloride 102 mmol/ L 96-106 normal Not Available [facility] ([facility]) [address] [facility], [place], [address], 11/03/2023 14:06:48 11/02/19 24 11/03/2023 COMP. METAB OLIC PANEL (14) carbon dioxide, total 21 mmol/ L 20-29 normal Not Available [facility] ([facility]) [address] [facility], [place], [address], 11/03/2023 14:06:48 11/02/19 24 11/03/2023 COMP. METAB OLIC PANEL (14) calcium 10.1 mg/dL 8.6-10 .2 normal Not Available [facility] ([facility]) [address] [facility] [place], [place], [address], 11/03/2023 14:06:48 11/02/19 24 11/03/2023 COMP. METAB OLIC PANEL (14) protein, total 7.2 g/dL 6.0-8. 5 normal Not Available [facility] ([facility]) [address] [facility], [place], [address], 11/03/2023 14:06:48 11/02/19 24 11/03/2023 COMP. METAB OLIC PANEL (14) albumin 4.5 g/dL 3.9-4. 9 normal Not Available [facility] ([facility]) [address] [facility], [place], [address], 11/03/2023 14:06:48 11/02/19 24 11/03/2023 COMP. METAB OLIC PANEL (14) globulin, total 2.7 g/dL 1.5-4. 5 Not Available [facility] ([facility]) [address] [facility], [place], [address], 11/03/2023 14:06:48 11/02/19 24 11/03/2023 COMP. METAB OLIC PANEL (14) bilirubin, total 1.2 mg/dL 0.0-1. 2 normal Not Available [facility] ([facility]) [address] [facility], [place], [address], 11/03/2023 14:06:48 11/02/19 24 11/03/2023 COMP. METAB OLIC PANEL (14) alkaline phosphatase 69 IU/L 44-121 normal Not Available [facility] ([facility]) [address] [facility], [place], [address], 11/03/2023 14:06:48 11/02/19 24 11/03/2023 COMP. METAB OLIC PANEL (14) AST (SGOT) 25 IU/L 0-40 normal Not Available [facility] ([facility]) [address] [facility], [place], [address], 11/03/2023 14:06:48 11/02/19 24 11/03/2023 COMP. METAB OLIC PANEL (14) ALT (SGPT) 18 IU/L 0-44 normal Not Available [facility] ([facility]) [address] [facility] [place], [place], [address], 11/03/2023 14:06:48 11/02/19 24 11/03/2023 HEMOG LOBIN A1C hemoglobin A1C 5.6 % 4.8-5. 6 normal Predi abete s: 5.7 - 6.4 Diabe falguni: >6.4 Glyce karli contr ol for adult s with diabe falguni: <7.0 Not Available [facility] ([facility]) [address] [facility], [place], [address], 11/03/2023 14:06:49 11/11/19 24 11/11/2023 CBC WITH DIFFE RENTI AL/PL ATELE T WBC 5.2 K/mm3 4.0-11 .0 normal Not Available [address], [address], 11/11/2023 13:59:48 11/11/19 24 11/11/2023 CBC WITH DIFFE RENTI AL/PL ATELE T RBC 3.08 M/mm3 4.70-6 .10 below low normal Not Available [address], [address], 11/11/2023 13:59:48 11/11/19 24 11/11/2023 CBC WITH DIFFE RENTI AL/PL ATELE T hemoglobin 10.2 gm/dL 13.7-1 7.1 below low normal Not Available [address], [address], 11/11/2023 13:59:48 11/11/19 24 11/11/2023 CBC WITH DIFFE RENTI AL/PL ATELE T hematocrit 29.6 % 40.5-5 0.0 below low normal Not Available [address], [address], 11/11/2023 13:59:48 11/11/19 24 11/11/2023 CBC WITH DIFFE RENTI AL/PL ATELE T MCV 96.1 fL 80.0-9 4.0 above high normal Not Available [address], [address], 11/11/2023 13:59:48 11/11/19 24 11/11/2023 CBC WITH DIFFE RENTI AL/PL ATELE T MCH 33.1 pg 27.0-3 4.0 normal Not Available [address], [address], 11/11/2023 13:59:48 11/11/19 24 11/11/2023 CBC WITH DIFFE RENTI AL/PL ATELE T MCHC 34.5 g/dL 33.0-3 7.0 normal Not Available [address], [address], 11/11/2023 13:59:48 11/11/19 24 11/11/2023 CBC WITH DIFFE RENTI AL/PL ATELE T RDW 48.2 fL <47.0 above high normal Not Available [address], [address], 11/11/2023 13:59:48 11/11/19 24 11/11/2023 CBC WITH DIFFE RENTI AL/PL ATELE T platelets 392 K/mm3 150-46 0 normal Not Available [address], [address], 11/11/2023 13:59:48 11/11/19 24 11/11/2023 CBC WITH DIFFE RENTI AL/PL ATELE T neutrophils 66.8 % 44-76 normal Not Available [address], [address], 11/11/2023 13:59:48 11/11/19 24 11/11/2023 CBC WITH DIFFE RENTI AL/PL ATELE T lymphs 19.4 % 15-43 normal Not Available [address], [address], 11/11/2023 13:59:48 11/11/19 24 11/11/2023 CBC WITH DIFFE RENTI AL/PL ATELE T monocytes 10.3 % 4.5-10 .5 normal Not Available [address], [address], 11/11/2023 13:59:48 11/11/19 24 11/11/2023 CBC WITH DIFFE RENTI AL/PL ATELE T eos 1.4 % 0-6 normal Not Available [address], [address], 11/11/2023 13:59:48 11/11/19 24 11/11/2023 CBC WITH DIFFE RENTI AL/PL ATELE T basos 1.7 % 0-2 normal Not Available [address], [address], 11/11/2023 13:59:48 11/11/19 24 11/11/2023 CBC WITH DIFFE RENTI AL/PL ATELE T neutrophils (absolute) 3.4 K/mm3 1.3-7. 0 normal Not Available [address], [address], 11/11/2023 13:59:48 11/11/19 24 11/11/2023 CBC WITH DIFFE RENTI AL/PL ATELE T lymphs (absolute) 1.0 K/mm3 0.8-3. 1 normal Not Available [address], [address], 11/11/2023 13:59:48 11/11/19 24 11/11/2023 CBC WITH DIFFE RENTI AL/PL ATELE T monocytes(ab solute) 0.5 K/mm3 0.4-1. 3 normal Not Available [address], [address], 11/11/2023 13:59:48 11/11/19 24 11/11/2023 CBC WITH DIFFE RENTI AL/PL ATELE T eos (absolute) 0.1 K/mm3 0.0-0. 4 normal Not Available [address], [address], 11/11/2023 13:59:48 11/11/19 24 11/11/2023 CBC WITH DIFFE RENTI AL/PL ATELE T baso (absolute) 0.1 K/mm3 0.0-0. 1 normal Not Available [address], [address], 11/11/2023 13:59:48 11/11/19 24 11/11/2023 CBC WITH DIFFE RENTI AL/PL ATELE T immature granulocytes 0.4 % Not Available [address], [address], 11/11/2023 13:59:48 11/11/19 24 11/11/2023 CBC WITH DIFFE RENTI AL/PL ATELE T immature grans (abs) 0.0 K/mm3 Not Available [address], [address], 11/11/2023 13:59:48 11/11/19 24 11/11/2023 CBC WITH DIFFE RENTI AL/PL ATELE T NRBC 0.0 #/100 _WBC' s Not Available [address], [address], 11/11/2023 13:59:48 11/11/19 24 11/11/2023 CBC WITH DIFFE RENTI AL/PL ATELE T hematology comments: Commen t AUTOM ATED DIFFE RENTI AL MPV 10.3 FL 9.4-1 2.4 N ABS. NRBC 0.0 K/MM3 N Not Available [facility] [address], [place], [address], 11/11/2023 13:59:48 12/29/19 24 12/29/2023 CBC, PLATE LET, NO DIFFE RENTI AL WBC 6.6 x10e3 /uL 3.4-10 .8 normal Not Available [facility] ([facility]) [address] [facility] [place], [place], [address], 12/29/2023 22:06:00 12/29/19 24 12/29/2023 CBC, PLATE LET, NO DIFFE RENTI AL RBC 4.26 x10e6 /uL 4.14-5 .80 normal Not Available [facility] ([facility]) [address] [place], [address], 12/29/2023 22:06:00 12/29/19 24 12/29/2023 CBC, PLATE LET, NO DIFFE RENTI AL hemoglobin 10.9 g/dL 13.0-1 7.7 below low normal Not Available [facility] ([facility]) [address] [place], [address], 12/29/2023 22:06:00 12/29/19 24 12/29/2023 CBC, PLATE LET, NO DIFFE RENTI AL hematocrit 37.3 % 37.5-5 1.0 below low normal Not Available [facility] ([facility]) [address] [place], [address], 12/29/2023 22:06:00 12/29/1912/29/2023 CBC, PLATE LET, NO DIFFE RENTI AL MCV 88 fL 79-97 normal Not Available [facility] ([facility]) [address] [place], [address], 12/29/2023 22:06:00 12/29/19 24 12/29/2023 CBC, PLATE LET, NO DIFFE RENTI AL MCH 25.6 pg 26.6-3 3.0 below low normal Not Available [facility] ([facility]) [address] [place], [address], 12/29/2023 22:06:00 12/29/19 24 12/29/2023 CBC, PLATE LET, NO DIFFE RENTI AL MCHC 29.2 g/dL 31.5-3 5.7 below low normal Not Available [facility] ([facility]) [address] [place], [address], 12/29/2023 22:06:00 12/29/19 24 12/29/2023 CBC, PLATE LET, NO DIFFE RENTI AL RDW 16.7 % 11.6-1 5.4 above high normal Not Available [facility] ([facility]) [address] [place], [address], 12/29/2023 22:06:00 12/29/19 24 12/29/2023 CBC, PLATE LET, NO DIFFE RENTI AL platelets 363 x10e3 /uL 150-45 0 normal Not Available [facility] ([facility]) [address] [place], [address], 12/29/2023 22:06:00 12/29/19 24 12/29/2023 CBC, PLATE LET, NO DIFFE RENTI AL NRBC PROTOTYPE SEWER Not Available [facility] ([facility]) [address] [place], [address], 12/29/2023 22:06:00 01/07/20 24 01/07/2024 POCT GLUCO SE, BLOOD glucose poct 89 mg/dL 70-199 Fasti ng Refer ence Range : 70-99 mg/dL Non-F astin g Refer ence Range : 70-19 9 mg/dL Not Available [facility] (Direct Fax All) [facility], [place], [address], 01/07/2024 12:32:04 01/07/20 24 01/07/2024 POCT GLUCO SE, BLOOD note See Report [facility], [address], [place] [address] Not Available [facility] (Direct Fax All) [facility], [place], [address], 01/07/2024 12:32:04 01/07/20 24 01/07/2024 TYPE AND SCREE N ABO group A Not Available [address], [address], 01/07/2024 16:10:07 01/07/20 24 01/07/2024 TYPE AND SCREE N Rh type Positi ve Not Available [address], [address], 01/07/2024 16:10:07 01/07/20 24 01/07/2024 TYPE AND SCREE N antibody screen Negati ve Not Available [address], [address], 01/07/2024 16:10:07 01/07/20 24 01/07/2024 TYPE AND SCREE N note See Report [facility], [address] [facility] [address], [place] [id number] Not Available [address], [address], 01/07/2024 16:10:07 01/25/20 24 01/25/2024 CBC WITH DIFFE RENTI AL/PL ATELE T WBC 6.4 x10e3 /uL 3.4-10 .8 normal Eff ectiv e Decem nelli 2023 [place] [id number] 5 WBC will be made* * non-o rdera ble as a stand -abhilash e order code. Not Available [facility] ([facility]) [address] [facility], [place], [address], 01/26/2024 06:08:48 01/25/20 24 01/25/2024 CBC WITH DIFFE RENTI AL/PL ATELE T RBC 4.49 x10e6 /uL 4.14-5 .80 normal Not Available [facility] ([facility]) [address] [facility], [place], [address], 01/26/2024 06:08:48 01/25/20 24 01/25/2024 CBC WITH DIFFE RENTI AL/PL ATELE T hemoglobin 10.8 g/dL 13.0-1 7.7 below low normal Not Available [facility] ([facility]) [address] [facility], [place], [address], 01/26/2024 06:08:48 01/25/20 24 01/25/2024 CBC WITH DIFFE RENTI AL/PL ATELE T hematocrit 36.6 % 37.5-5 1.0 below low normal Not Available [facility] ([facility]) [address] [place], [address], 01/26/2024 06:08:48 01/25/20 24 01/25/2024 CBC WITH DIFFE RENTI AL/PL ATELE T MCV 82 fL 79-97 normal Not Available [facility] ([facility]) [address] [place], [address], 01/26/2024 06:08:48 01/25/20 24 01/25/2024 CBC WITH DIFFE RENTI AL/PL ATELE T MCH 24.1 pg 26.6-3 3.0 below low normal Not Available [facility] ([facility]) [address] [place], [address], 01/26/2024 06:08:48 01/25/20 24 01/25/2024 CBC WITH DIFFE RENTI AL/PL ATELE T MCHC 29.5 g/dL 31.5-3 5.7 below low normal Not Available [facility] ([facility]) [address] [facility] [place], [place], [address], 01/26/2024 06:08:48 01/25/20 24 01/25/2024 CBC WITH DIFFE RENTI AL/PL ATELE T RDW 16.1 % 11.6-1 5.4 above high normal Not Available [facility] ([facility]) [address] [facility] [place], [place], [address], 01/26/2024 06:08:48 01/25/20 24 01/25/2024 CBC WITH DIFFE RENTI AL/PL ATELE T platelets 358 x10e3 /uL 150-45 0 normal Not Available [facility] ([facility]) [address] [facility] [place], [place], [address], 01/26/2024 06:08:48 01/25/20 24 01/25/2024 CBC WITH DIFFE RENTI AL/PL ATELE T neutrophils 68 % not estab. normal Not Available [facility] ([facility]) [address] [facility] [place], [place], [address], 01/26/2024 06:08:48 01/25/20 24 01/25/2024 CBC WITH DIFFE RENTI AL/PL ATELE T lymphs 18 % not estab. normal Not Available [facility] ([facility]) [address] [place], [address], 01/26/2024 06:08:48 01/25/20 24 01/25/2024 CBC WITH DIFFE RENTI AL/PL ATELE T monocytes 9 % not estab. normal Not Available [facility] ([facility]) [address] [place], [address], 01/26/2024 06:08:48 01/25/20 24 01/25/2024 CBC WITH DIFFE RENTI AL/PL ATELE T eos 2 % not estab. normal Not Available [facility] ([facility]) [address] [place], [address], 01/26/2024 06:08:48 01/25/20 24 01/25/2024 CBC WITH DIFFE RENTI AL/PL ATELE T basos 3 % not estab. normal Not Available [facility] ([facility]) [address] [facility] [place], [place], [address], 01/26/2024 06:08:48 01/25/20 24 01/25/2024 CBC WITH DIFFE RENTI AL/PL ATELE T immature cells PROTOTYPE SEWER Not Available [facility] ([facility]) [address] [facility], [place], [address], 01/26/2024 06:08:48 01/25/20 24 01/25/2024 CBC WITH DIFFE RENTI AL/PL ATELE T neutrophils (absolute) 4.4 x10e3 /uL 1.4-7. 0 normal Not Available [facility] ([facility]) [address] [facility], [place], [address], 01/26/2024 06:08:48 01/25/20 24 01/25/2024 CBC WITH DIFFE RENTI AL/PL ATELE T lymphs (absolute) 1.1 x10e3 /uL 0.7-3. 1 normal Not Available [facility] ([facility]) [address] [facility], [place], [address], 01/26/2024 06:08:48 01/25/20 24 01/25/2024 CBC WITH DIFFE RENTI AL/PL ATELE T monocytes(ab solute) 0.6 x10e3 /uL 0.1-0. 9 normal Not Available [facility] ([facility]) [address] [place], [address], 01/26/2024 06:08:48 01/25/20 24 01/25/2024 CBC WITH DIFFE RENTI AL/PL ATELE T eos (absolute) 0.1 x10e3 /uL 0.0-0. 4 normal Not Available [facility] ([facility]) [address] [facility] [place], [place], [address], 01/26/2024 06:08:48 01/25/20 24 01/25/2024 CBC WITH DIFFE RENTI AL/PL ATELE T baso (absolute) 0.2 x10e3 /uL 0.0-0. 2 normal Not Available [facility] ([facility]) [address] [facility] [place], [place], [address], 01/26/2024 06:08:48 01/25/20 24 01/25/2024 CBC WITH DIFFE RENTI AL/PL ATELE T immature granulocytes 0 % not estab. Not Available [facility] ([facility]) [address] [facility], [place], [address], 01/26/2024 06:08:48 01/25/20 24 01/25/2024 CBC WITH DIFFE RENTI AL/PL ATELE T immature grans (abs) 0.0 x10e3 /uL 0.0-0. 1 Not Available [facility] ([facility]) [address] [facility], [place], [address], 01/26/2024 06:08:48 01/25/20 24 01/25/2024 CBC WITH DIFFE RENTI AL/PL ATELE T NRBC PROTOTYPE SEWER Not Available [facility] ([facility]) [address] [place], [address], 01/26/2024 06:08:48 01/25/20 24 01/25/2024 CBC WITH DIFFE RENTI AL/PL ATELE T hematology comments: PROTOTYPE SEWER Not Available [facility] ([facility]) [address] [place], [address], 01/26/2024 06:08:48 01/25/20 24 01/25/2024 COMP. METAB OLIC PANEL (14) glucose 102 mg/dL 70-99 above high normal Not Available [facility] ([facility]) [address] [place], [address], 01/26/2024 06:08:49 01/25/20 24 01/25/2024 COMP. METAB OLIC PANEL (14) BUN 11 mg/dL 8-27 normal Not Available [facility] ([facility]) [address] [facility], [place], [address], 01/26/2024 06:08:49 01/25/20 24 01/25/2024 COMP. METAB OLIC PANEL (14) creatinine 0.91 mg/dL 0.76-1 .27 normal Not Available [facility] ([facility]) [address] [facility], [place], [address], 01/26/2024 06:08:49 01/25/20 24 01/25/2024 COMP. METAB OLIC PANEL (14) eGFR 95 mL/mi n/1.7 3 >59 normal Not Available [facility] ([facility]) [address] [facility], [place], [address], 01/26/2024 06:08:49 01/25/20 24 01/25/2024 COMP. METAB OLIC PANEL (14) BUN/creatini ne ratio 12 10-24 normal Not Available [facility] ([facility]) [address] [facility], [place], [address], 01/26/2024 06:08:49 01/25/20 24 01/25/2024 COMP. METAB OLIC PANEL (14) sodium 141 mmol/ L 134-14 4 normal Not Available [facility] ([facility]) [address] [facility] [place], [place], [address], 01/26/2024 06:08:49 01/25/20 24 01/25/2024 COMP. METAB OLIC PANEL (14) potassium 4.8 mmol/ L 3.5-5. 2 normal Not Available [facility] ([facility]) [address] [facility], [place], [address], 01/26/2024 06:08:49 01/25/20 24 01/25/2024 COMP. METAB OLIC PANEL (14) chloride 106 mmol/ L 96-106 normal Not Available [facility] ([facility]) [address] [facility] [place], [address], 01/26/2024 06:08:49 01/25/20 24 01/25/2024 COMP. METAB OLIC PANEL (14) carbon dioxide, total 21 mmol/ L 20-29 normal Not Available [facility] ([facility]) [address] [facility], [place], [address], 01/26/2024 06:08:49 01/25/20 24 01/25/2024 COMP. METAB OLIC PANEL (14) calcium 9.2 mg/dL 8.6-10 .2 normal Not Available [facility] ([facility]) [address] [facility] [place], [address], 01/26/2024 06:08:49 01/25/20 24 01/25/2024 COMP. METAB OLIC PANEL (14) protein, total 6.6 g/dL 6.0-8. 5 normal Not Available [facility] ([facility]) [address] [facility] [place], [address], 01/26/2024 06:08:49 01/25/20 24 01/25/2024 COMP. METAB OLIC PANEL (14) albumin 4.0 g/dL 3.9-4. 9 normal Not Available [facility] ([facility]) [address] [facility] [place], [address], 01/26/2024 06:08:49 01/25/20 24 01/25/2024 COMP. METAB OLIC PANEL (14) globulin, total 2.6 g/dL 1.5-4. 5 Not Available [facility] ([facility]) [address] [facility] [place], [address], 01/26/2024 06:08:49 01/25/20 24 01/25/2024 COMP. METAB OLIC PANEL (14) bilirubin, total 0.7 mg/dL 0.0-1. 2 normal Not Available [facility] ([facility]) [address] [facility] [place], [address], 01/26/2024 06:08:49 01/25/20 24 01/25/2024 COMP. METAB OLIC PANEL (14) alkaline phosphatase 75 IU/L 44-121 normal Not Available [facility] ([facility]) [address] [facility] [place], [address], 01/26/2024 06:08:49 01/25/20 24 01/25/2024 COMP. METAB OLIC PANEL (14) AST (SGOT) 17 IU/L 0-40 normal Not Available [facility] ([facility]) [address] [facility] [place], [address], 01/26/2024 06:08:49 01/25/20 24 01/25/2024 COMP. METAB OLIC PANEL (14) ALT (SGPT) 12 IU/L 0-44 normal Not Available [facility] ([facility]) [address] [place], [address], 01/26/2024 06:08:49 01/25/20 24 01/25/2024 IRON AND TIBC iron bind.cap.(TI BC) 419 ug/dL 250-45 0 normal Not Available [facility] ([facility]) [address] [place], [address], 01/26/2024 06:08:49 01/25/20 24 01/25/2024 IRON AND TIBC UIBC 402 ug/dL 111-34 3 above high normal Not Available [facility] ([facility]) [address] [facility] [place], [address], 01/26/2024 06:08:49 01/25/20 24 01/25/2024 IRON AND TIBC iron 17 ug/dL 38-169 below low normal Not Available [facility] ([facility]) [address] [place], [address], 01/26/2024 06:08:49 01/25/20 24 01/25/2024 IRON AND TIBC iron saturation 4 % 15-55 alert low Not Available [facility] ([facility]) [address] [place] [address], [place], [address], 01/26/2024 06:08:49 01/25/20 24 01/26/2024 HEMOG LOBIN A1C hemoglobin A1C 5.8 % 4.8-5. 6 above high normal Predi abete s: 5.7 - 6.4 Diabe falguni: >6.4 Glyce karli contr ol for adult s with diabe falguni: <7.0 Not Available [facility] ([facility]) [address] [facility] [place], [place], [address], 01/26/2024 06:08:50 01/25/20 24 01/25/2024 HUA TIN ferritin 13 NG/mL 30-400 below low normal Not Available [facility] ([facility]) [address] [place], [address], 01/26/2024 06:08:51 01/06/20 24 H&P No observ ation record ed. [address], [address], 01/06/2024 17:33:34 01/08/20 24 01/07/2024 disch arge summa ry No observ ation record ed. [email or web address] [address], [address], 01/09/2024 08:31:45 01/08/20 24 ECG 12-le ad No observ ation record ed. [address], [address], 01/10/2024 13:32:35 02/22/20 24 02/22/2024 H&P No observ ation record ed. [address], [address], 02/24/2024 10:11:10 02/22/20 24 02/22/2024 proce dures No observ ation record ed. [address], [address], 02/24/2024 10:11:11 02/22/20 24 02/22/2024 trans esoph ageal echoc ardio gram (cont rast/ 3D PRN) No observ ation record ed. [address], [address], 02/24/2024 10:11:11 03/09/19 25 03/09/2024 ECG 12-le ad No observ ation record ed. [address], [address], 03/09/2024 17:22:59 03/20/19 25 ECG 12-le ad No observ ation record ed. [address], [address], 03/20/2024 11:45:24 Result Notes None recorded. Problems Name Problem SNOMED Code Status Onset Date Resolution Date Notes Provider Name and Address Organization Details Recorded Time Atrial fibrilla tion 59634695 Active [employer] [facility] 0 11:26:13 Anxiety state 564391074 [facility] 11:26[facility]13 Tobacco dependen ce syndrome 62644456 Completed 06[facility]19/2014 [facility] 6 12:16:17 Single major depressi ve episode Completed 10/31/2020 Removal Reason: more specific ity Kaleb Hines MD [address] [address], [place], [address] , [facility] 1 10:22:06 Type 2 diabetes mellitus without complica tion 933172135 Completed 01/04/2014 Antonio horne, [facility] 6 12:16:17 Uncontro lled type 2 diabetes mellitus 365400239 Completed 02/28/2020 Removal Reason: now controll ed Kaleb Hines MD [address] [facility] [address], [place], [address] , [facility] 1 18:32:40 Impotenc e of organic origin Completed 201209/06/2013 RECORDED 06/02/19 13 1:14PM BY DAVID RODRÍGUEZ MA, ANNOTATI ON/ADDEN DUM Antonio horne, [facility] 6 12:16:17 Gastroes ophageal reflux disease 068560482 Active Payal Hattie horne, [facility] 0 11:26:13 Malaise and fatigue 881216784 Completed 08/07/2016 Radha Miles MA [facility], [facility] 7 10:32:54 Influenz a vaccine needed 78437691879 06 Completed 201009/06/2013 RECORDED 01/15/20 11 9:55AM BY ANTONIO SANCHEZ MD, OFFICE VISIT Antonio horne [facility] 6 12:16:17 Ulcer of heel 871008905 Active Payal Hattie [facility] 0 11:26:13 Adult health examinat ion Completed 201209/06/2013 RECORDED 06/02/19 13 1:14PM BY DAVID RODRÍGUEZ MA, ANNOTATI ON/ADDEN DUM Antonio horne [facility] 6 12:16:17 Follow-u p encounte r Completed 201109/06/2013 RECORDED 01/19/20 12 9:17AM BY DAVID RODRÍGUEZ MA, ANNOTATI ON/ADDEN DUM Antonio Saunders ro null, [facility] 6 12:16:17 Glucose level outside referenc e range 826315391 Completed 201109/06/2013 RECORDED 09/25/19 12 2:57PM BY DILLAN HULL MA, ANNOTATI ON/ADDEN DUM Antonio Saunders ro null, [facility] 6 12:16:17 Hyperlip idemia 60007828 Active Payal Kuhn null, [facility] 0 11:26:13 Essentia l hyperten deangelo 35820352 Active Payal Kuhn null, [facility] 0 11:26:13 Impaired fasting glycemia 861180452 Completed 201109/06/2013 RECORDED 01/19/20 12 9:17AM BY DAVID RODRÍGUEZ MA, ANNOTATI ON/ADDEN DUM Antonio Saunders ro null, [facility] 6 12:16:17 Insomnia 974710003 Active Payal Kuhn null, [facility] 0 11:26:13 Laborato ry procedur e performe d 288294371 Completed 201209/06/2013 RECORDED 06/02/19 13 1:14PM BY DAVID RODRÍGUEZ MA, ANNOTATI ON/ADDEN DUM Antonio Saunders ro null, [facility] 6 12:16:17 Administ ration of tetanus vaccine Completed 201109/06/2013 RECORDED 09/25/19 12 2:57PM BY DILLAN HULL MA, ANNOTASHLEY ON/ADDEN DUM Antonio Saunders ro null, [facility] 6 12:16:17 Idiopath ic peripher al neuropat hy 28112614 Completed 01/04/2014 Antonio jj null, [facility] 6 12:16:17 Morbid obesity 019019271 Active Payal Kuhn ozzie, [facility] 0 11:26:13 Osteoart hritis of knee 967493181 Completed 201109/06/2013 STORY: RIGHT KNEE, END STAGE, NEEDS TKR; RECORDED 01/19/20 12 9:17AM BY DAVID RODRÍGUEZ MA, ANNOTATI ON/ADDEN DUM Antonio Alcala'Alessand ro null, [facility] 6 12:16:17 Osteomye litis of ankle AND/OR foot 35280988 Active Payalzoran horne, [facility] 0 11:26:13 Pre-surg jhonatan evaluati on Completed 201109/06/2013 RECORDED 01/19/20 12 9:17AM BY DAVID RODRÍGUEZ MA, ANNOTATI ON/ADDEN DUM Antonio WebsterAlessand ro null, [facility] 6 12:16:17 Screenin g for malignan t neoplasm of colon Completed 201109/06/2013 RECORDED 09/25/19 12 2:57PM BY DILLAN HULL MA, ANNOTATI ON/ADDEN DUM Antonio WebsterAlessand ro null, [facility] 6 12:16:18 Dermatop hytosis of the body Completed 201109/06/2013 RECORDED 09/25/19 12 2:57PM BY DILLAN HULL MA, ANNOTATI ON/ADDEN DUM Antonio WebsterAlessand ro null, [facility] 6 12:16:17 Tobacco dependen ce syndrome 99488092 Completed 201109/06/2013 STORY: PT SMOKES RARELY; RECORDED 01/19/20 12 9:17AM BY DAVID RODRÍGUEZ MA, ANNOTATI ON/ADDEN DUM Antonio WebsterAlessand ro null, [facility] 6 12:16:17 Impotenc e of organic origin Completed 201209/29/2013 RECORDED 06/02/19 13 1:14PM BY DAVID RODRÍGUEZ MA, ANNOTATI ON/ADDEN DUM Antonio Saunders ro null, [facility] 6 12:16:17 Influenz a vaccine needed 76527591165 06 Completed 201009/29/2013 RECORDED 01/15/20 11 9:55AM BY ANTONIO SANCHEZ MD, OFFICE VISIT Antonio jj null, [facility] 6 12:16:17 Adult health examinat ion Completed 201209/29/2013 RECORDED 06/02/19 13 1:14PM BY DAVID RODRÍGUEZ MA, IAN ON/ADDEN DUM Antonio Saunders ro null, [facility] 6 12:16:17 Follow-u p encounte r Completed 201109/29/2013 RECORDED 01/19/20 12 9:17AM BY DAVID RODRÍGUEZ MA, IAN ON/ADDEN DUM Antonio Saunders ro null, [facility] 6 12:16:17 Glucose level outside referenc e range 358833886 Completed 201109/29/2013 RECORDED 09/25/19 12 2:57PM BY DILLAN HULL MA, IAN ON/ADDEN DUM Antonio jj null, [facility] 6 12:16:17 Impaired fasting glycemia 215522631 Completed 201109/29/2013 RECORDED 01/19/20 12 9:17AM BY DAVID RODRÍGUEZ MA, IAN ON/ADDEN DUM Antonio jj null, [facility] 6 12:16:17 Laborato ry procedur e performe d 018419170 Completed 201209/29/2013 RECORDED 06/02/19 13 1:14PM BY DAVID RODRÍGUEZ MA, ANNOTATI ON/ADDEN DUM Antonio D'Alessand ro null, [facility] 6 12:16:17 Administ ration of tetanus vaccine Completed 201109/29/2013 RECORDED 09/25/19 12 2:57PM BY DILLAN HULL MA, ANNOTATI ON/ADDEN DUM Antonio [place]'Alessand ro null, [facility] 6 12:16:17 Osteoart hritis of knee 251777656 Completed 201109/29/2013 STORY: RIGHT KNEE, END STAGE, NEEDS TKR; RECORDED 01/19/20 12 9:17AM BY DAVID RODRÍGUEZ MA, ANNOTATI ON/ADDEN DUM Antonio Linus'Alessand ro null, [facility] 6 12:16:17 Pre-surg jhonatan evaluati on Completed 201109/29/2013 RECORDED 01/19/20 12 9:17AM BY DVAID RODRÍGUEZ MA, ANNOTATI ON/ADDEN DUM Antonio Linus'Alessand ro null, [facility] 6 12:16:17 Screenin g for malignan t neoplasm of colon Completed 201109/29/2013 RECORDED 09/25/19 12 2:57PM BY DILLAN HULL MA, ANNOTASHLEY ON/ADDEN DUM Antonio [place]cal[place]'Alessand ro null, [facility] 6 12:16:18 Dermatop hytosis of the body Completed 201109/29/2013 RECORDED 09/25/19 12 2:57PM BY DILLAN HULL MA, ANNOTATI ON/ADDEN DUM Antonio Linus'Alessand ro null, [facility] 6 12:16:17 Impotenc e of organic origin Completed 201209/30/2013 RECORDED 06/02/19 13 1:14PM BY DAVID RODRÍGUEZ MA, ANNOTASHLEY ON/ADDEN DUM Antonio [place]'Alessand ro null, [facility] 6 12:16:17 Influenz a vaccine needed 30936756606 06 Completed 201009/30/2013 RECORDED 01/15/20 11 9:55AM BY ANTONIO SANCHEZ MD, OFFICE VISIT Antonio horne, [facility] 6 12:16:17 Adult health examinat ion Completed 201209/30/2013 RECORDED 06/02/19 13 1:14PM BY DAVID RODRÍGUEZ MA, IAN ON/ADDEN DUM Antonio jj null, [facility] 6 12:16:17 Follow-u p encounte r Completed 201109/30/2013 RECORDED 01/19/20 12 9:17AM BY DAVID RODRÍGUEZ MA, MARTITAATI ON/ADDEN DUM Antonio horne, [facility] 6 12:16:17 Glucose level outside referenc e range 103007507 Completed 201109/30/2013 RECORDED 09/25/19 12 2:57PM BY DILLAN HULL MA, IAN ON/ADDEN DUM Antonio horne, [facility] 6 12:16:17 Impaired fasting glycemia 106869031 Completed 201109/30/2013 RECORDED 01/19/20 12 9:17AM BY DAVID RODRÍGUEZ MA, IAN ON/ADDEN AUNG horne, [facility] 6 12:16:17 Laborato ry procedur e performe d 975193493 Completed 201209/30/2013 RECORDED 06/02/19 13 1:14PM BY DAVID RODRÍGUEZ MA, IAN ON/ADDPAUL horne, [facility] 6 12:16:17 Administ ration of tetanus vaccine Completed 201109/30/2013 RECORDED 09/25/19 12 2:57PM BY DILLAN HULL MA, ANNOTATI ON/ADDEN DUM Antonio Saunders ro null, [facility] 6 12:16:17 Osteoart hritis of knee 717698789 Completed 201109/30/2013 STORY: RIGHT KNEE, END STAGE, NEEDS TKR; RECORDED 01/19/20 12 9:17AM BY DAVID RODRÍGUEZ MA, ANNOTATI ON/ADDEN DUM Antonio Saunders ro null, [facility] 6 12:16:17 Pre-surg jhonatan evaluati on Completed 201109/30/2013 RECORDED 01/19/20 12 9:17AM BY DAVID RODRÍGUEZ MA, ANNOTATI ON[facility] Antonio Saunders ro null, [facility] 6 12:16:17 Screenin g for malignan t neoplasm of colon Completed 201109/30/2013 RECORDED 09/25/19 12 2:57PM BY DILLAN HULL MA, ANNOTATI ON/[facility] Antonio Saunders ro null, [facility] 6 12:16:18 Dermatop hytosis of the body Completed 201109/30/2013 RECORDED 09/25/19 12 2:57PM BY DILLAN HULL MA, ANNOTATI ON/ADDEN [facility] Antonio Saunders ro null, [facility] 6 12:16:17 Rapid atrial fibrilla tion 566585237 Completed 06/19/2014 Antonio jj null, [facility] 6 12:16:17 Dyspnea on exertion 56528048 Active Payal horne, [facility] 0 11:26:13 Cellulit is of toe 99634368 Completed 06/19/2014 Antonio jj null, [facility] 6 12:16:17 Secondar y peripher al neuropat hy 079758 Active Payal horne, [facility] 0 11:26:13 Neuropat hy due to diabetes mellitus 743904921 Active Payal horne, [facility] 0 11:26:13 Coronary atherosc lerosis 244025346 Active mild, [facility] 11:26:13 Necrobio sis lipoidic a diabetic orum 67921018 [facility] 0 11:26:13 Degenera tion of lumbar interver tebral disc 93079720 Active Payalzoran Kuhn [facility], [facility] 0 11:26:13 Disorder of nervous system due to diabetes mellitus 379533679 Active Payalzoran uKhn [facility] 0 11:26:13 Ex-smoke r 6129102 Active Payalzoran Kuhn [facility] 0 11:26:13 Liver enzymes outside referenc e range 587209515 Active Payalzoran Kuhn [facility] 0 11:26:13 Increase d frequenc y of urinatio n 794728244 Completed 08/07/2016 Radha Miles JILL [facility] 7 10:32:51 Obstruct susana sleep apnea syndrome 10954184 Active Payalzoran Kuhn [facility] 0 11:26:13 Atherosc lerosis Active 2017 Payal Kuhn [facility] 0 11:26:13 On examinat ion - Amputate d right below knee Active 2016 Uma Lopez [facility], [facility] 1 09:48:08 Arthriti s 6962619 Active Payalzoran Kuhn [facility] 0 11:26:13 Hyperten sive disorder 85483034 Active Payalzoran Kuhn [facility] 0 11:26:13 Smoker 84276858 Active Payal Kuhn ozzie, [facility] 0 11:26:13 Type 2 diabetes mellitus 46681375 Completed 10/31/2020 Removal Reason: more complica mell Kaleb Hines MD [address], [place], [address] , [facility] 1 10:21:51 Hypercho lesterol emia 10885914 Completed 10/31/2020 Removal Reason: Sarah Hines MD [address], [place], [address] , [facility] 1 10:21:28 Tinea corporis 61355360 Active 2019 Kaleb Hines MD [address], [place], [address] , [facility] 0 11:32:34 Impingem ent syndrome of right shoulder region 43949720203 9102 Active 2019 Injected at [facility] Kaleb Hines MD [address], [place], [address] , [facility] 0 10:17:22 Amputate d right lower limb below knee 891708863 Completed 201605/08/2020 Uma horne, [facility] 1 09:50:50 Amputate d right lower limb below knee 610284800 Active 2016 Uma horne, [facility] 1 09:50:50 Chronic pain syndrome 723801947 Active 2021 Kaleb Hines MD [address], [place], [address] , [facility] 2 12:42:07 Pain of knee region 1802843446 Active 2021 Left knee pain; seen at [facility] and will be schedule d for [facility] ent. Kaleb Hines MD [address], [place], [address] , [facility] 2 17:03:59 Upper gastroin testinal bleeding 33552595 Active 2023 Admitted to [facility] for fluid resuscit ation. Secondar y to gastric ulcer after polypect ic EGD 1 week prior. Kaleb Hines MD [address], [place], [address] , [facility] 4 11:42:51 Iron deficien cy anemia 97210559 Active 2024 Kaleb Hines MD [address], [place], [address] , [facility] 5 12:44:07 Problem Notes None recorded. Procedures Surgical History Date Name Laterality Status Provider Name and Address Organization Details Recorded Time 01/27/20 24 Chronic Pain Assessment completed Dillan de luna MA [facility] 01/27/2024 14:00:47 01/07/20 24 Perq clsr tcat l atr apndge completed Kaleb Hines MD [address] [facility] [address], [place], [address], [facility] 01/16/2024 15:22:05 10/28/19 24 Colonoscopy completed Светлана Rocha [facility] 11/03/2023 08:55:11 10/28/19 24 Egd diagnostic brush wash completed Светлана Rocha [facility] 11/03/2023 08:55:17 10/07/19 24 Chronic Pain Assessment completed Sigrid Carrillo MA [facility] 10/07/2023 13:01:53 10/08/19 23 Chronic Pain Assessment completed Jazmyne Sniger MA [facility] 10/07/2022 13:32:19 06/26/19 23 Chronic Pain Assessment completed Jazmyne Singer MA [facility] 06/25/2022 09:44:18 01/29/20 22 Chronic Pain Assessment completed Jazmyne Singer MA [facility] 01/28/2022 10:30:43 08/06/19 22 Chronic Pain Assessment completed Jazmyne Singer MA [facility] 08/05/2021 10:32:21 05/07/19 22 Chronic Pain Assessment completed Jazmyne Singer MA [facility] 05/06/2021 11:32:38 02/05/20 21 Chronic Pain Assessment completed Lorie Madrid MA [facility] 02/04/2021 10:57:37 10/11/19 21 Drain thigh/knee lesion completed Uma Lopez [facility] 11/21/2020 13:50:06 08/29/19 21 Chronic Pain Assessment completed Micheline Conner MA [facility] 08/28/2020 10:33:42 05/25/19 21 Chronic Pain Assessment completed Micheline Conner MA [facility] 05/24/2020 10:10:16 02/27/19 21 Chronic Pain Assessment completed Nazia Milian MA [facility] 02/28/2020 13:47:36 12/29/19 20 shoulder injection completed Uma Lopez [facility] 01/27/2020 14:30:21 07/04/19 20 Chronic Pain Assessment completed Oral Kraft [facility] 07/04/2019 09:14:14 04/25/19 20 Colonoscopy completed Payal Kuhn [facility] 05/03/2019 09:57:42 04/25/19 20 Egd diagnostic brush wash completed Светлана Rocha [facility] 08/05/2023 13:40:45 03/31/19 20 Chronic Pain Assessment completed Oral [facility] 03/31/2019 13:56:38 09/30/19 19 Chronic Pain Assessment completed Oral [facility] 09/29/2018 10:11:22 07/02/19 19 Chronic Pain Assessment completed Oral [facility] 07/01/2018 11:00:02 04/06/19 19 Chronic Pain Assessment completed Oral [facility] 04/06/2018 10:18:58 04/06/19 19 Diabetic Foot Exam (Monofilament) completed Oral [facility]raft [facility] 04/06/2018 10:07:27 01/06/20 18 Chronic Pain Assessment completed Oral [facility] 01/05/2018 15:25:01 10/07/19 18 Chronic Pain Assessment completed Oral Kraft [facility] 10/06/2017 13:20:38 06/23/19 18 Chronic Pain Assessment completed Nazia Milian MA [facility] 06/22/2017 14:09:13 01/22/20 17 Other completed Destini Hernandez [facility] 02/13/2017 10:58:23 10/29/19 17 Chronic Pain Assessment completed Radha Miles MA [facility] 10/28/2016 11:02:43 08/08/19 17 Chronic Pain Assessment completed Radha Miles MA [facility] 08/07/2016 10:54:40 05/14/19 17 Chronic Pain Assessment completed Nazia Milian MA [facility] 05/13/2016 11:19:22 11/22/19 15 Other completed Radha Miles MA [facility] 11/27/2014 09:50:04 02/15/20 14 Cardioversion electric ext completed Hugo Sosa [facility] 06/19/2014 09:02:19 02/23/19 14 cholecystectomy completed Kaleb Hines MD [address] [address], [place], [address], [facility] 10/27/2019 11:29:13 03/07/19 12 EGD completed Uma Lopez [facility] 08/07/2015 16:21:39 02/23/18 97 excision of uvula completed Kaleb Hines MD [address] [facility] [address], [place], [address], [facility] 10/27/2019 11:29:47 Imaging Results Imaging Date Name Status LastModified by Organization Details LastModified Time 01/06/2024 H&P completed [address], [address], 01/06/2024 17:33:34 01/07/2024 discharge summary completed [address], [address], 01/09/2024 08:31:45 01/08/2024 ECG 12-lead completed [address], [address], 01/10/2024 13:32:35 02/22/2024 H&P completed [address], [address], 02/24/2024 10:11:10 02/22/2024 procedures completed [address], [address], 02/24/2024 10:11:11 02/22/2024 transesophageal echocardiogram (contrast/3D PRN) completed [address], [address], 02/24/2024 10:11:11 03/09/2024 ECG 12-lead completed [address], [address], 03/09/2024 17:22:59 03/20/2024 ECG 12-lead completed [address], [address], 03/20/2024 11:45:24 Procedure Notes None recorded. Medical Equipment None Reported. Allergies Allergen ID Allergen Name Allergen Category Reaction Reaction Severity Criticality Documentation Date Start Date Code Code System Note Provider Name and Address Organization Details Recorded Time 303 erythromy sameer medicatio n angioedem a Not available Not available 09/06/20132012 4053 RxNorm Dillan Kimberly alexander MA [facility] 6 09:20:19 Medications Name Sig Start Date Stop Date Status Note LastModified by Organization Details LastModified Time celecoxib 200 mg capsule TAKE 1 CAPSULE BY MOUTH EVERY DAY WITH MEALS 11/05 completed Not Available Not Available Not Available Santyl 250 unit/gram topical ointment active Not Available Not Available Not Available amoxicill in 500 mg capsule TAKE 4 CAPSULES BY MOUTH 1 HOUR BEFORE APPOINTM ENT 2024 active prior to dental appts Not Available Not Available Not Available Aspirin Child 81 mg chewable tablet active RECORDED 09/26/19 11 5:37PM BY IAN TAMEZ/ASHVIN HORAN; Not Available Not Available Not Available acetamino phen 325 mg tablet Take 2 tablets every 6 hours by oral route as needed. active NOT TO EXCEED 3000 MG A DAY Not Available Not Available Not Available doxycycli ne hyclate 100 mg capsule Take 1 capsule twice a day by oral route for 7 days. 06/29 completed Not Available Not Available Not Available clindamyc in HCl 300 mg capsule 03/12 completed Not Available Not Available Not Available ciproflox acin 750 mg tablet TAKE 1 TABLET BY MOUTH EVERY DAY 10/31 completed Not Available Not Available Not Available Vitamin C 500 mg tablet TAKE 1 TABLET BY MOUTH ONCE DAILY 05/24 completed Not Available Not Available Not Available triamcino lone acetonide 0.5 % topical cream APPLY EXTERNAL LY TO THE AFFECTED AREA TWICE DAILY 05/06 completed Not Available Not Available Not Available aspirin 325 mg tablet Take 1 tablet every day by oral route. 10/06 completed Not Available Not Available Not Available ofloxacin 0.3 % eye drops 05/25 completed Not Available Not Available Not Available amiodaron e 200 mg tablet Take 0.5 tablets every other day by oral route. 01/05 completed Not Available Not Available Not Available metoprolo l succinate ER 50 mg tablet,ex tended release 24 hr Take 0.5 tablets every day by oral route for 90 days. 11/05 completed Not Available Not Available Not Available sulfameth oxazole 400 mg-trimet hoprim 80 mg tablet Take 2 tablets every 12 hours by oral route for 5 days. 2013 active Not Available Not Available Not Avai lable metoprolo l succinate ER 200 mg tablet,ex tended release 24 hr Take 200 mg every day by oral route for 90 days. 2024 active Not Available Not Available Not Avai lable prednison e 20 mg tablet TAKE 1 TABLET BY MOUTH EVERY DAY WITH MEALS FOR 5 DAYS 05/24 completed Not Available Not Available Not Available fluoroura cil 5 % topical cream 10/07 completed Not Available Not Available Not Available metoprolo l succinate ER 100 mg tablet,ex tended release 24 hr TAKE 1 TABLET BY MOUTH EVERY DAY active Not Available Not Available No t Available clobetaso l 0.05 % topical cream 01/26 completed Not Available Not Available Not Available valsartan 80 mg tablet Take 1 tablet every day by oral route for 90 days. 04/17 completed Not Available Not Available Not Available Nexium 40 mg capsule,d elayed release Take 40 mg by oral route. 10/26 completed Not Available Not Available Not Available clopidogr el 75 mg tablet Take 1 tablet every day by oral route for 90 days. active Not Available Not Available No t Available simvastat in 80 mg tablet Take 0.5 tablets every day by oral route. active Not Available Not Available No t Available sulfameth oxazole 800 mg-trimet hoprim 160 mg tablet TWO TIMES DAILY active Not Available Not Available No t Available peg-elect rolyte solution 420 gram oral solution 10/04 completed Not Available Not Available Not Available aspirin 81 mg tablet,de layed release Take 1 tablet every day by oral route. 10/06 completed Not Available Not Available Not Available doxycycli ne monohydra te 100 mg tablet 06/29 completed Not Available Not Available Not Available tramadol 50 mg tablet TAKE 1 TO 2 TABLETS BY MOUTH EVERY 6 HOURS NEEDED FOR MILD PAIN (MAX OF 400MG/DA Y) 01/28 completed Not Available Not Available Not Available amoxicill in 500 mg tablet 03/12 completed Not Available Not Available Not Available oxycodone 15 mg tablet 03/12 completed Not Available Not Available Not Available oxycodone -acetamin ophen 5 mg-325 mg tablet Take 1 tablet every 6 hours by oral route as needed for 5 days. 01/02 completed Not Available Not Available Not Available terbinafi ne HCl 250 mg tablet Take 1 tablet every day by oral route. 05/24 completed Not Available Not Available Not Available rifampin 300 mg capsule TAKE ONE CAPSULE BY MOUTH TWICE DAILY 10/31 completed Not Available Not Available Not Available amoxicill in 875 mg tablet TAKE 1 TABLET BY MOUTH TWICE DAILY UNTIL FINISHED 09/16 completed Not Available Not Available Not Available hydromorp ilan 2 mg tablet active Not Available Not Available Not Available Vitamin D3 10 mcg (400 unit) tablet Take 1 tablet every day by oral route. 10/07 completed Not Available Not Available Not Available prednisol one acetate 1 % eye drops,devora pension Instill 1 drop every day by ophthalm ic route as directed for 30 days. 10/02 completed Not Available Not Available Not Available propafeno ne 300 mg tablet TWO TIMES DAILY active Not Available Not Available No t Available Vitamin C 1,000 mg tablet Take 1 tablet every day by oral route as directed . 05/06 completed Not Available Not Available Not Available amiodaron e 400 mg tablet Take 1 tablet twice a day by oral route as directed for 14 days. 01/08 completed Not Available Not Available Not Available gabapenti n 800 mg tablet THREE TIMES DAILY 10/05 completed RECORDED 10/06/19 12 12:54PM BY ELODIA QUIGLEY, OFFICE VISIT; Not Available Not Available Not Available betametha sone valerate 0.1 % topical cream TWO TIMES DAILY 09/25 completed RECORDED 09/26/19 11 5:35PM BY FELICITA WODOS, ANNOTATI ON/ASHVIN DUM; Not Available Not Available Not Available morphine 30 mg immediate release tablet TAKE 1 TABLET TWICE A DAY 10/31 completed Not Available Not Available Not Available doxycycli ne monohydra te 100 mg capsule TAKE 1 CAPSULE BY MOUTH TWICE DAILY FOR 10 DAYS 10/02 completed Not Available Not Available Not Available cephalexi n 500 mg capsule active Not Available Not Available Not Available pantopraz ole 40 mg tablet,de layed release TAKE 1 TABLET BY MOUTH TWICE DAILY 12/22 completed Not Available Not Available Not Available simvastat in 20 mg tablet active RECORDED 10/27/19 13 10:40AM BY DAVID RODRÍGUEZ MA, OFFICE VISIT; Not Available Not Available Not Available fluoxetin e 20 mg tablet TAKE 1 TABLET BY MOUTH EVERY DAY 2024 active Not Available Not Available Not Avai lable clotrimaz ole-betam ethasone 1 %-0.05 % topical cream APPLY TO THE AFFECTED AND SURROUND ING AREAS OF SKIN BY TOPICAL ROUTE 2 TIMES PER DAY IN THE MORNING AND EVENING FOR 2 WEEKS 10/31 completed Not Available Not Available Not Available metoprolo l tartrate 50 mg tablet TWO TIMES DAILY 12/28 completed Not Available Not Available Not Available docusate sodium 100 mg capsule Take 1 capsule twice a day by oral route as needed. 01/26 completed Not Available Not Available Not Available gabapenti n 300 mg capsule TAKE 1 CAPSULE BY MOUTH EVERY DAY AT BEDTIME active Not Available Not Available No t Available omeprazol e 20 mg capsule,d elayed release TAKE 1 CAPSULE BY MOUTH TWICE DAILY FOR GERD active Not Available Not Available No t Available polyethyl gonzalo glycol 3350 (bulk) powder Take 17 g every day by miscell. route as needed. 01/26 completed Not Available Not Available Not Available bisacodyl 5 mg tablet,de layed release TK 4 TS PO WITH 8 OUNCES OF WATER ONCE THE DAY BEFORE PROCEDUR E 10/26 completed Not Available Not Available Not Available magnesium 250 mg tablet Take 2 tablets every day by oral route. 03/12 completed Not Available Not Available Not Available hydrochlo rothiazid e 25 mg tablet Take 1 tablet every day by oral route for 90 days. 11/10 completed 11/05/23- STOPPED IN HOSPITAL Not Available Not Available Not Available gabapenti n 100 mg capsule Take 300 mg by oral route. 10/26 completed Not Available Not Available Not Available lorazepam 1 mg tablet TAKE 1 TABLET BY MOUTH EVERY NIGHT AT BEDTIME NEEDED 12/31 completed Not Available Not Available Not Available Viagra 100 mg tablet Take 1 tablet as needed by oral route for 30 days. 07/01 completed Not Available Not Available Not Available levofloxa sameer 750 mg tablet DAILY 04/13 completed RECORDED 04/13/19 11 1:42PM BY KALEB LANDON MD, ANNOTATI ON/ASHVIN DUM; Not Available Not Available Not Available SSD 1 % topical cream 10/26 completed Not Available Not Available Not Available ketoconaz ole 2 % topical cream Apply 1 applicat ion every day by topical route as needed for 30 days. 12/31 completed Not Available Not Available Not Available morphine 15 mg immediate release tablet TAKE 1 TO 2 TABLETS BY MOUTH EVERY 4 TO 6 HOURS NEEDED FOR PAIN 10/31 completed Not Available Not Available Not Available indometha sameer ER 75 mg capsule,e xtended release Take by oral route for 30 days. 10/31 completed Not Available Not Available Not Available atropine 1 % eye drops 05/25 completed Not Available Not Available Not Available ondansetr on 4 mg disintegr ating tablet DISSOLVE 1 TABLET ON THE TONGUE THREE TIMES DAILY FOR 5 DAYS DIRECTED 10/31 completed Not Available Not Available Not Available metformin ER 500 mg tablet,ex tended release 24 hr Take 0.5 tablets every day by oral route for 90 days. 12/31 completed Not Available Not Available Not Available metronida zole 0.75 % topical gel Apply 1 applicat ion every day by topical route as needed for 30 days. active Not Available Not Available No t Available doxycycli ne hyclate 100 mg tablet TAKE 1 TABLET BY MOUTH TWICE DAILY 01/28 completed Not Available Not Available Not Available naproxen 500 mg tablet TAKE 1 TABLET BY MOUTH TWICE DAILY WITH FOOD 10/31 completed Not Available Not Available Not Available amoxicill in 875 mg-potass ium clavulana te 125 mg tablet TAKE 1 TABLET BY MOUTH TWICE DAILY UNTIL ALL TAKEN 06/25 completed Not Available Not Available Not Available oxycodone 5 mg tablet Take 1 tablet 3 times a day by oral route for 30 days. 2024 active Not Available Not Available Not Avai lable valsartan 160 mg tablet TAKE 1 TABLET BY MOUTH EVERY DAY active Not Available Not Available No t Available DentaGel 1.1 % 10/26 completed Not Available Not Available Not Available Laxative (bisacody l) 5 mg tablet TAKE 4 TABLETS BY MOUTH ONCE DIRECTED 11/05 completed Not Available Not Available Not Available Hypercare 20 % topical solution 08/07 completed Not Available Not Available Not Available moxifloxa sameer 0.5 % eye drops Instill 2 drops every day by ophthalm ic route as directed for 7 days. 10/02 completed Not Available Not Available Not Available metformin ER 750 mg tablet,ex tended release 24 hr TAKE 1 TABLET BY MOUTH EVERY DAY 12/30 completed Not Available Not Available Not Available Pacerone 100 mg tablet Take 1 tablet every day by oral route for 90 days. 10/06 completed Not Available Not Available Not Available propafeno ne ER 325 mg capsule,e xtended release 12 hr Take 1 capsule twice a day by oral route for 30 days. 09/29 completed Not Available Not Available Not Available propafeno ne ER 425 mg capsule,e xtended release 12 hr Take 1 capsule twice a day by oral route for 90 days. 10/26 completed Not Available Not Available Not Available duloxetin e 30 mg capsule,d elayed release DAILY 09/25 completed RECORDED 09/26/19 11 5:35PM BY IAN TAMEZ ON/ASHVIN HORAN; Not Available Not Available Not Available Ultram 50 mg. 10/26 completed Not Available Not Available Not Available vitamin B complex and vit C no.3 15 mg-10 mg-50 mg-5 mg-300 mg capsule Take 1 capsule every day by oral route. 10/02 completed Not Available Not Available Not Available ferrous gluconate 324 mg (38 mg iron) tablet TAKE 1 TABLET BY MOUTH ONCE DAILY 05/24 completed Not Available Not Available Not Available oxycodone 10 mg tablet TAKE 1/2 TO 1 TABLET EVERY 3 HOURS NEEDED FOR SEVERE PAIN 01/28 completed Not Available Not Available Not Available GaviLyte- G 236 gram-22.7 4 gram-6.74 gram-5.86 gram oral solution MIX AND DRINK DIRECTED 11/05 completed Not Available Not Available Not Available Centrum Complete 18 mg-400 mcg tablet Take 1 tablet every day by oral route as directed . 03/12 completed Not Available Not Available Not Available dabigatra n etexilate 150 mg capsule 150 mg by oral route. 01/26 completed Not Available Not Available Not Available Fish Oil 100 mg-160 mg-1,000 mg capsule Take 1 capsule every day by oral route. 07/01 completed Not Available Not Available Not Available Xarelto 10 mg tablet TAKE 1 TABLET BY MOUTH EVERY DAY AT SUPPER FOR 6 DAYS 01/28 completed Not Available Not Available Not Available Xarelto 20 mg tablet Take 1 tablet every day by oral route at bedtime for 30 days. 11/10 completed Not Available Not Available Not Available Accu-Chek SmartView Test Strips TEST BLOOD SUGARS ONE TIME DAILY 05/24 completed Not Available Not Available Not Available Accu-Chek Kena TWO TIMES DAILY 07/22 completed RECORDED 07/27/19 13 11:04AM BY ANTONIO SANCHEZ MD, MEDICATI ON AUTO-CORAZON CTIVATIO N;DX: DIABETES Not Available Not Available Not Available lidocaine 5 % topical ointment Apply 1 applicat ion twice a day by topical route for 30 days. 05/06 completed Not Available Not Available Not Available lancets 30 gauge Take 1 each 3 times a day by miscell. route for 30 days. 05/24 completed Not Available Not Available Not Available Prodigy Autocode Blood Glucose Monitorin g System 03/12 completed Not Available Not Available Not Available Narcan 4 mg/actuat ion nasal spray one spray in one nostril, may repeat dose every 2-3min until pt responsi ve or EMS arrives active Not Available Not Available No t Available Ozempic 0.25 mg or 0.5 mg (2 mg/1.5 mL) subcutane ous pen injector Inject 0.25 mg every week by subcutan eous route for 28 days. 03/25 completed increase d dose Not Available Not Available Not Available Ozempic 1 mg/dose (4 mg/3 mL) subcutane ous pen injector INJECT 1 MG UNDER THE SKIN EVERY WEEK 01/26 completed Not Available Not Available Not Available Ozempic 2 mg/dose (8 mg/3 mL) subcutane ous pen injector INJECT 2 MG UNDER THE SKIN EVERY WEEK FOR 28 DAYS active Not Available Not Available No t Available Ozempic 0.25 mg or 0.5 mg (2 mg/3 mL) subcutane ous pen injector INJECT 0.5MG UNDER THE SKIN EVERY WEEK DIRECTED 01/26 completed Not Available Not Available Not Available Vitals Date Recorded Body height Body mass index (BMI) Body weight Heart rate Oxygen saturation Oxygen saturation in Arterial blood by Pulse oximetry Body temperature Systolic blood pressure Diastolic blood pressure Provider Name and Address Organization Details Last Updated DateTime 4 193.04 cm 39.6 kg/m2 754876. 52 g 78 /min 97 % 97 % 97.3 [degF] 148 mm[Hg] 96 mm[Hg] Sigrid Carrillo MA [facility] 4 13:00:17 Date Recorded Body height Body mass index (BMI) Body weight Heart rate Oxygen saturation Oxygen saturation in Arterial blood by Pulse oximetry Body temperature Systolic blood pressure Diastolic blood pressure Provider Name and Address Organization Details Last Updated DateTime 4 193.04 cm 38.8 kg/m2 856020. 97 g 116 /min 100 % 100 % 97.4 [degF] 146 mm[Hg] 91 mm[Hg] Sigrid Carrillo MA [facility] 4 11:05:51 Date Recorded Body height Body mass index (BMI) Body weight Heart rate Oxygen saturation Oxygen saturation in Arterial blood by Pulse oximetry Body temperature Pain severity - 0-10 verbal numeric rating [Score] - Reported Systolic blood pressure Diastolic blood pressure Provider Name and Address Organization Details Last Updated DateTime 4 193.04 cm 39.8 kg/m2 376681. 7 g 96 /min 98 % 98 % 97.9 [degF] 7 162 mm[Hg] 83 mm[Hg] Dillan alexander MA [facility] 4 13:57:24 Date Recorded Body height Body mass index (BMI) Body weight Heart rate Oxygen saturation Oxygen saturation in Arterial blood by Pulse oximetry Body temperature Systolic blood pressure Diastolic blood pressure Provider Name and Address Organization Details Last Updated DateTime 5 193.04 cm 39.6 kg/m2 639440. 52 g 100 /min 98 % 98 % 96.4 [degF] 136 mm[Hg] 93 mm[Hg] Sigrid Carrillo MA [facility] 5 10:15:53 Social History Question Answer Notes LastModified by Organizat ion Details LastModified Time Tobacco Smoking Status Former Smoker quit around 2009 Louisa horne [facility] 09/25/2014 14:15:01 Do You Have An Advance Directive? Yes Kaci Louie Information not available 01/28/2022 What Is Your Level Of Alcohol Consumption? Moderate Information not available 01/05/2014 Is Blood Transfusion Acceptable In An Emergency? Yes Information not available 09/25/2014 What Is Your Level Of Caffeine Consumption? Moderate 1 Cup Of Coffee Daily [email or web address] Information not available 06/25/2022 How Much Tobacco Do You Chew? None Information not available 09/25/2014 Are You Currently Employed? No Retired Information not available 10/05/2015 What Type Of Diet Are You Following? DIABETIC Information not available 09/25/2014 Which Illicit Or Recreational Drugs Have You Used? N/A Information not available 09/25/2014 Do You Or Have You Ever Used E-cigarettes Or Vape? 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 11-15yearssin celastcigaret te Information not available 09/16/2021 Live Alone Or With Others? With Others (Kaci) Information not available 01/28/2022 Do You Take Precautions To Prevent Distracted Driving? Yes Information not available 09/25/2014 How Often Do You Need To Have Someone Help You When You Read Instructions, Pamphlets, Or Other Written Material From Your Doctor Or Pharmacy? Never Information not available 09/25/2014 Have You Or Anyone In Your Household Had Any Of The Following Symptoms In The Last 14 Days: Sore Throat, Cough, Chills, Body Aches For Unknown Reasons, Shortness Of Breath For Unknown Reasons, Loss Of Smell, Loss Of Taste, Fever At Or Greater Than 100 Degrees Fahrenheit? No Information not available 10/27/2019 Are You Or Anyone In Your Household A Health Care Provider Or Emergency Responder? No [email or web address] Information not available 10/27/2019 To The Best Of Your Knowledge Have You Been In Close Proximity To Any Individual Who Tested Positive For COVID-19? No Information not available 10/27/2019 Have You Recently Traveled To A COVID-19 High Risk Area Or Gathering In The Last 10 Days? No [email or web address] Information not available 05/24/2020 What Was The Date Of Your Most Recent Tobacco Screening? 01/27/2024 Information not available 01/27/2024 How Many Children Do You Have? 2 1 Son And 1 Daughter [email or web address] Information not available 10/27/2019 What Is Your Current Pack Years? 10packyears Information not available 01/28/2022 Do You Use Protection During Sex? No Information not available 10/05/2015 Seat Belts Used Routinely Yes Information not available 01/28/2022 Are You Sexually Active? Yes Information not available 10/05/2015 Smoke Alarm In Home Yes Information not available 01/28/2022 At What Age Did You Start Smoking Tobacco? 19 On And Off Until Age 50 Information not available 09/16/2021 Are You Passively Exposed To Smoke? No Information not available 09/25/2014 Do You Or Have You Ever Used Smokeless Tobacco? Never Used Smokeless Tobacco [email or web address] Information not available 11/24/2019 How Much Tobacco Do You Smoke? 1 PPW Information not available 09/16/2021 Do You Use Any Illicit Or Recreational Drugs? No Information not available 01/28/2022 Do You Use Sunscreen Routinely? Yes Information not available 09/25/2014 How Many Years Have You Smoked Tobacco? 31 Information not available 09/16/2021 Do You Or Have You Ever Used Any Other Forms Of Tobacco Or Nicotine? No Information not available 01/28/2022 Sex: Unknown Functional Status Question Answer Note LastModified by Organizat ion Details LastModified Time Are you able to walk? YESWOREST Information not available 01/28/2022 Are you able to care for yourself? Yes Information not available 09/25/2014 What is your exercise level? Occasional Information not available 01/05/2014 Mental Status None recorded. Family History Relationship Description Onset Age of this Age Resolved Age Notes LastModified by Organization Details LastModified Time Father Coronary arterioscler osis 79 Not available 2021 10:14:18 Father Dementia 79 [email or web address] Not availa ble 10/27/2019 11:26:46 Brother Sudden 43 sudden ; CAD Not available 01/28/2022 10:14:18 Unspecified Relation Hypertensive disorder [email or web address] Not available 11/2015 12:16:38 Unspecified Relation Alzheimer's disease [email or web address] Not available 11/2015 12:16:38 Mother Old-age 90 Mom old age 2017/ age 90 Not available 01/28/2022 10:14:18 Notes:2 brothers (1 from heart disease) and 2 sisters. He is youngest. Medical History Condition Response Diabetes Y Anxiety Disorder N Muscle, Joint, or Bone Problems Y Heart Problems/Murmur Y Hypertension Y Immunizations Vaccine Type Date Status Note Provider Nam e and Address Organization Details Recorded Time Influenza, split virus, trivalent, preservative 4 completed JILL Ellis [facility] 09/16/2021 15:55:52 Influenza, split virus, quadrivalent, preservative 6 completed [facility] 07/04/2019 11:26:08 pneumococcal polysaccharide PPV23 6 completed Pay[facility] horne [facility] 07/04/2019 11:26:08 DTaP, unspecified formulation 3 completed Payal Money [facility] 11/02/2019 11:26:48 Influenza, split virus, quadrivalent, preservative 6 completed Payalzoran Kuhn [facility] 11/02/2019 11:35:08 Influenza, split virus, quadrivalent, preservative 6 completed Payalzoran Kuhn [facility] 11/02/2019 11:35:17 Influenza, split virus, quadrivalent, preservative 4 completed Payal Hattie [facility] 11/02/2019 11:35:24 Influenza, split virus, quadrivalent, preservative 3 completed Pay[facility] 11/02/2019 11:35:40 Influenza, split virus, quadrivalent, preservative 3 completed [facility] 11/02/2019 11:35:50 Influenza, split virus, quadrivalent, [facility]ative [facility] 11:36:04 Influenza, split virus, quadrivalent, preservative 9 [facility] 11:36:22 pneumococcal, unspecified formulation 1 completed Payalzoran Kuhn [facility] 11/02/2019 11:39:18 [facility] 11:39:52 zoster recombinant 0 completed Payal Hattie [facility] 11/02/2019 11:39:57 Influenza, split virus, quadrivalent, preservative 0 [facility] 13:45:06 COVID-19, mRNA, LNP-S, PF, 30 mcg/0.3 mL dose 1 completed Dillan Sanchez MA null, [facility] 09/16/2021 15:55:52 COVID-19, mRNA, LNP-S, PF, 30 mcg/0.3 mL dose 1 completed JILL Ellis, [facility] 09/16/2021 15:55:52 Influenza, split virus, quadrivalent, PF 1 completed JILL Nunes, [facility] 02/04/2021 10:49:53 COVID-19, mRNA, LNP-S, PF, 30 mcg/0.3 mL dose 1 completed JILL Nunes, [facility] 02/04/2021 11:14:57 Influenza, split virus, quadrivalent, PF [facility] 15:22:12 Hep B, adult 0 completed JILL Ellis, [facility] 09/16/2021 15:22:12 Influenza, split virus, quadrivalent, PF 8 [facility] 15:22:12 Hep B, adult 0 completed JILL Ellis, [facility] 09/16/2021 15:22:12 COVID-19, mRNA, LNP-S, PF, 30 mcg/0.3 mL dose, ema-sucrose 2 completed JILL Ellis, [facility] 09/16/2021 15:22:12 Hep B, adult 1 completed JILL Ellis, [facility] 09/16/2021 15:22:12 COVID-19, mRNA, LNP-S, bivalent, PF, 30 mcg/0.3 mL dose 2 completed JILL Ortiz, [facility] 01/28/2022 10:19:47 Influenza, split virus, quadrivalent, PF 2 completed JILL Ortiz, [facility] 01/28/2022 10:19:47 Tdap 6 completed Not Available [facility] 03/12/2019 02:21:45 COVID-19, mRNA, LNP-S, PF, ema-sucrose, 30 mcg/0.3 mL 4 completed JILL Ellis, [facility] 01/27/2024 13:45:40 COVID-19, mRNA, LNP-S, PF, ema-sucrose, 30 mcg/0.3 mL 3 completed JILL Ellis, [facility] 01/27/2024 13:45:40 Influenza, split virus, quadrivalent, PF 7 completed Not Available [facility] 03/12/2019 02:22:11 Td (adult), 2 Lf tetanus toxoid, preservative free, adsorbed [address] [facility] 07/04/2019 11:26:08 Influenza, split virus, trivalent, preservative [address] [facility] 07/04/2019 11:26:08 Influenza, split virus, quadrivalent, PF 3 completed Kaleb Hines MD [address], [address], [facility] 12/31/2022 12:22:40 Influenza, split virus, trivalent, PF 4 completed Kaleb Hines MD [address], [address], [facility] 11/12/2023 08:02:47 Past Encounters Encounter ID Performer Location Encounter Start Date Encounter Closed Date Diagnosis/Indication Diagnosis SNOMED-CT Code Diagnosis ICD10 Code Diagnosis Note [id number] [facility] [address] [address] [place] [address] 11/02/2009 00:00:00 [id number] [facility] [address] [place] [address] 02/04/2010 00:00:00 [id number] [facility] [address] [place] [address] 04/13/2010 00:00:00 [id number] [facility] [address] [place] [address] 08/30/2010 00:00:00 [id number] [facility] [address] [place] [address] 01/14/2011 00:00:00 [id number] [facility] [address] [facility] [address] [place] [address] 03/14/2011 00:00:00 [id number] [facility] [facility] [address] [facility],[address] [place] [address] 10/06/2011 00:00:00 [id number] [employer] [address] [facility] [address] [place] [address] 11/04/2011 00:00:00 [id number] [employer]ce [address] [facility],[address] [place] [address] 01/19/2012 00:00:00 [id number] [employer] [place] [address] 06/01/2012 00:00:00 [id number] [employer] [address] [place] [address] 10/26/2012 00:00:00 [id number] Piedad birch Main Office [address] [place] [address] 12/21/2013 08:51:10 12/21/2013 10:02:43 Rapid atrial fibrillation [id number] he will go to ER for sxs below. he may have coronary blockage. he at least is having breakthrou gh rate on the afib and needs better control. Cardiac enzymes and possibly stress testing would be recommende d. pt has no sxs at the moment so he can drive to the ER Dyspnea on exertion 67846866 Cellulitis of toe 41445465 [id number] Louisa Peters Main Office [address] [facility] [address] [place] [address] 01/05/2014 10:42:06 01/05/2014 11:34:07 Adult health examination 947992553 Neuropathy due to diabetes mellitus 079813787 stable Atrial fibrillation 57753227 Coronary atherosclerosis 878584438 non obstructiv e CAD per DR Louie/gabino ardiac cath/dec, 2013. Anxiety state 456203349 [id number] Ria Walton Main Office [address] [facility] [address] [place] [address] 06/19/2014 08:39:23 06/19/2014 09:25:48 Disorder of nervous system due to diabetes mellitus 273275551 he is ready to start a med for diabetes. f/u 3 months with a1c before appt. teletriage f/u 2 wks to check in Secondary peripheral neuropathy 035012 Atrial fibrillation 80525574 stable after cardiovers ion. Essential hypertension 00415149 well controlled [id number] Elodia Quigley [place] Main Office [address] [facility] [address] [place] [address] 09/25/2014 14:02:11 09/25/2014 15:11:30 Disorder of nervous system due to diabetes mellitus 103564711 Endocrine impotence 328040907 Anxiety state 632718761 [id number] Nickie Garcia PA-C Main Office [address] [facility] [address] [place] [address] 11/24/2014 08:47:14 11/24/2014 09:56:29 Pre-surgery evaluation 656441509 Z01.818 Low risk for retinal surgery procedure. NO contraindi cations based on EKG and labs for next week's procedure. [id number] Antonio jj Main Office [address] [facility] [address] [place] [address] 05/26/2015 09:27:46 05/26/2015 10:37:38 Chronic pain 42827264 G89.29 conversati on w/Dr Geovanni FOWLER 05/25/15. Pt has Charcot joints in feet-chron ic pain . Pt agrees to limited use of opiates. 60 tabs of oxycodone should last approx 90 days [id number] Antonio jj Main Office [address] [address] [place] [address] 08/03/2015 10:53:29 08/03/2015 12:06:29 Liver enzymes outside reference range 287127917 R94.5 Disorder o f nervous system due to diabetes mellitus 861446589 E08.49 Increased frequency of urination 872442770 R35.0 Chronic pain 88534207 G8 9.29 conversati on w/Dr Geovanni FOWLER 05/25/15. Pt has Charcot joints in feet-chron ic pain . Pt agrees to limited use of opiates. 60 tabs of oxycodone should last approx 90 days [id number] Antonio jj Main Office [address] [address] [place] [address] 10/05/2015 08:30:31 10/05/2015 09:49:30 Adult health examination 037629126 Z00.00 Uncontroll ed type 2 diabetes mellitus 413451513 E11.65 Essential hypertension 80331414 I10 Chronic pain 28196266 G8 9.29 conversati on w/Dr Geovanni FOWLER 05/25/15. Pt has Charcot joints in feet-chron ic pain . Pt agrees to limited use of opiates. 60 tabs of oxycodone should last approx 90 days Anxiety state 762749081 F41.1 Body mass index 40+ - severely obese 020730227 Z68.41 [id number] Antonio Chip jj Main Office [address] [address] [place] [address] 02/05/2016 10:42:32 02/05/2016 11:32:58 Neuropathy due to diabetes mellitus 319900947 E11.40 stable Essential hypertension 47344693 I10 cont current meds Chronic pain 08074900 G8 9.29 conversati on w/Dr Geovanni FOWLER 05/25/15. Pt has Charcot joints in feet-chron ic pain . Pt agrees to limited use of opiates. 60 tabs of oxycodone per month Body mass index 40+ - severely obese 786479650 Z68.41 E66.01 Anxiety state 189610997 F41.1 [id number] Antonio Saunders Main Office [address] [address] 05/13/2016 10:58:32 05/13/2016 11:59:18 Chronic pain 16747891 G89.29 conversati on w/Dr Geovanni FOWLER 05/25/15. Pt has Charcot joints in feet-chron ic pain . Pt agrees to limited use of opiates. 60 tabs of oxycodone per month Neuropathy due to diabetes mellitus 214367519 E11.40 stable Body mass index 40+ - severely obese 275956921 E66.01 Fatigue 35197304 R53.83 [id number] [facility] Main Office [facility] [address] [address] 08/07/2016 10:42:23 08/07/2016 11:32:02 Chronic pain 55924655 G89.29 conversati on w/Dr Geovanni FOWLER 05/25/15. Pt has Charcot joints in feet-chron ic pain . Pt agrees to limited use of opiates. 60 tabs of oxycodone per month Anxiety state 948453549 F41.1 Well contr olled type 2 diabetes mellitus 573012905 E11.9 Body mass index 40+ - severely obese 130211706 Z68.41 E66.01 [id number] Antonio AlcalaMima Main Office [facility] [address] [address] 10/28/2016 10:48:49 10/28/2016 11:24:37 Chronic pain 07939303 G89.29 conversati on w/Dr Geovanni FOWLER 05/25/15. Pt has Charcot joints in feet-chron ic pain . Pt agrees to limited use of opiates. 60 tabs of oxycodone per month Needs infl uenza immunization 267679874 Z23 Insomnia 934919163 G47.0 0 Disorder o f nervous system due to diabetes mellitus 512435067 E08.49 [id number] Antonio jj Main Office [address] [address] [place] [address] 12/18/2016 13:39:58 12/18/2016 15:17:55 Neuropathy due to diabetes mellitus 900064266 E11.40 stable Chronic pain 31747742 G8 9.29 conversati on w/Dr Geovanni FOWLER 05/25/15. Pt has Charcot joints in feet-chron ic pain . Pt agrees to limited use of opiates. 60 tabs of oxycodone per month Lightheadedness 31265820 8 R42 Essential hypertension 76999917 I10 change bp meds/ pt on half metoprolol and will be start on half of valsartan 80 [id number] Antonio jj Main Office [address] [address] [place] [address] 03/12/2017 14:47:45 03/12/2017 16:09:22 Neuropathy due to diabetes mellitus 140277197 E11.40 stable Chronic pain 90799555 G8 9.29 conversati on w/Dr Geovanni FOWLER 05/25/15. Pt has Charcot joints in feet-chron ic pain . Pt agrees to limited use of opiates. Anxiety state 144940215 F41.1 [id number] Antonio jj Main Office [address] [address] [place] [address] 06/22/2017 13:36:28 06/22/2017 14:55:58 Chronic pain 04841616 G89.29 conversati on w/Dr Geovanni FOWLER 05/25/15. Pt has Charcot joints in feet-chron ic pain . Pt agrees to limited use of opiates. Uncontroll ed type 2 diabetes mellitus 707825523 E11.65 [id number] Kaleb Hines MD Main Office [address] [address] [place] [address] 10/06/2017 12:53:28 10/06/2017 14:20:54 Chronic pain 22708008 G89.29 He has joints pains in his knees and LBP. Insomnia 149540017 G47.0 0 Has phantom leg pains at night Anxiety state 169854882 F41.1 Not a constant problem. Uses lorazepam prn. Degenerati on of lumbar intervertebral disc 89247425 M51.36 Atrial fibrillation 4943 6004 I48.91 May be having an ablation in the near future. History of amputation of right leg through tibia and fibula 4082100764 39706 Z89.511 Doing well with his prosthesis . Essential hypertension 86276455 I10 His BP is running a lttle high today but I will not make any changes since this is my first time meeting him which may be affecting his BP. [id number] Kaleb Hines MD Main Office [address] [address] 01/05/2018 14:41:16 01/05/2018 16:13:53 Chronic pain 90274985 G89.29 He has joints pains in his knees and LBP. Meds help. 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 We discussed stopping his diabetes meds but he would like to continue for 3 more months and see if he can lose more weight. Atrial fibrillation 4943 6004 I48.91 Had ablation and is now in sinus rhythm. Followed by cardiology . [id number] Kaleb Hines MD Main Office [address] [address] 04/06/2018 09:48:42 04/06/2018 10:53:27 Neuropathy due to diabetes mellitus 672159573 E11.40 Excellent A1C. He would like to remain on meds. Chronic pain 90871336 G8 9.29 He has joints pains in his knees and LBP. Meds help. Insomnia 693357159 G47.0 0 Has phantom leg pains at night. He understand s that he needs to wean from lorazepam Atrial fibrillation 4943 6004 I48.91 Had ablation in 2018 and is now in sinus rhythm. Followed by cardiology . History of amputation of right leg through tibia and fibula 6986645672 73544 Z89.511 Doing well with his prosthesis . Body mass index 40+ - severely obese 861221112 E66.01 Z68.41 [id number] Kaleb Hines MD Main Office [address] [address] 07/01/2018 10:43:34 07/01/2018 11:49:43 Adult health examination 638415576 Z00.00 Due for a colonoscop y this year (2018) He is scheduling it. Chronic pain 97661275 G8 9.29 He has joints pains in his knees and LBP. Meds help. Anxiety state 162066830 F41.1 Not a constant problem. Uses lorazepam prn. [id number] Kaleb Hines MD Main Office [address] [facility] [address] [place] [address] 09/29/2018 09:58:28 09/29/2018 10:39:54 Chronic pain syndrome 625297624 G89.4 Chronic pain 97655354 G8 9.29 He has joints pains in his knees and LBP. Meds help. 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 We discussed stopping his diabetes meds but he would like to continue for 3 more months and see if he can lose more weight. Atrial fibrillation 4943 6004 I48.91 Had ablation in 2018 and is now in sinus rhythm. Followed by cardiology . Essential hypertension 91187024 I10 Good control; continue current mgmt [id number] Nadira Kirby Main Office [address] [facility] 207 [place] [address] 12/30/2018 13:30:45 12/30/2018 14:23:29 Chronic pain 90016963 G89.29 He has joints pains in his knees and LBP. Meds help. 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 We discussed stopping his diabetes meds but he would like to continue for 3 more months and see if he can lose more weight. Degenerati on of lumbar intervertebral disc 39004115 M51.36 Essential hypertension 88482758 I10 Good control; continue current mgmt On examina tion - Amputated right below knee 523922543 Z89.511 [id number] Kaleb Hines MD Main Office [address] [place] [address] 03/31/2019 13:52:04 03/31/2019 15:13:29 Chronic pain syndrome 741824937 G89.4 No changes in meds. Chronic pain 06417378 G8 9.29 He has joints pains in his knees and LBP. Meds help. Insomnia 211150240 G47.0 0 Has phantom leg pains at night. He is requesting lorazepam but understand s that we are avoiding benzos. Will try neurontin 300 and may increase to 600. Difficulty swallowing 28 8582637 R13.10 He will be seeing Dr Tate next week to schedule a colonoscop y. We will let him know that he has been having trouble swallowing . [id number] [facility] [address] [facility] 207 [place] [place] [address] 07/04/2019 08:30:58 07/04/2019 10:52:31 Chronic pain 54433761 G89.29 He has joints pains in his knees and LBP. Meds help. Essential hypertension 22675778 I10 Good control; continue current mgmt Insomnia 887809270 G47.0 0 Sleep has improved and he is no longer taking any meds for this. 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 DM under control after 50 lb weight loss. [id number] Kaleb Hines MD Main Office [address] [facility] 207 [place] [address] 10/27/2019 10:47:39 10/27/2019 11:50:46 Adult health examination 101909019 Z00.00 Had a colonoscop y done in April and due again in 2024. Type 2 seymour betes mellitus 50833955 E11.9 A1C still good at 6.1 so will not restart meds. He will intensify lifestyle changes and we will recheck in 3 months. Degenerati on of lumbar intervertebral disc 79521810 M51.36 Chronic problem. Has a narcotics contract. Major depr essive disorder 196751216 F32.0 Stable on meds. Psoriasis 7165303 L40.9 Atrial fibrillation 4943 6004 I48.91 Had ablation in 2018 and is now in sinus rhythm. Followed by cardiology . On examina tion - Amputated right below knee 663271457 Z89.511 [id number] Kaleb Hines MD Main Office [address] [facility] [address] [place] [address] 11/24/2019 10:28:50 11/24/2019 12:03:18 Tinea corporis 93310727 B35.4 Did not respond to steroid cream will do course of PO antifungal [id number] Kaleb Hines MD Main Office [address] [address] [place] [address] 02/28/2020 13:25:00 02/28/2020 14:15:53 Essential hypertension 38380937 I10 Good control; continue current mgmt Chronic pain 91131767 G8 9.29 He has joints pains in his knees and LBP. Meds help. Degenerati on of lumbar intervertebral disc 53873460 M51.36 Chronic problem. Has a narcotics contract. Type 2 seymour betes mellitus 17697172 E11.9 A1C still good at 6.0 so will not restart meds. He will intensify lifestyle changes and we will recheck in 3 months. He has been off all diabetes meds for more than a year. Major depr essive disorder 413144916 F32.0 Stable on meds. Atrial fibrillation 4943 6004 I48.91 Had ablation in 2018 and is back in afib. Followed by cardiology in the past but would like to be followed here for now. He is currently stable and stable on meds. [id number] Pepe Gregory MD Main Office [address] [address] [place] [address] 05/08/2020 10:59:14 05/08/2020 12:20:22 Cyst of skin 028542158 L72.9 -DDx include lipoma, abcess, and less likely bursitis as the cystic mass is more superficia l.-Given there was erythema patient agreed to aspiration risk discussed with patient but not limited to bleeding/i nfection.- As patient is a diabetic I will empiricall y cover with abx as well as infection cannot be ruled out.-Will also provide steriods (as patient has GI intoleranc e to NSAID and is already on an anticoagul ant) for pain and inflammati on and also in the event this is bursitis, I also advised him to place padding and offload from prosthetic .-He is to check with prosthetic manufactur er for better support.-W ill also get U/S to evaluate the lesion.-Gia davis advised but not limted to if he:has new or worse symptoms of infection, such as: Increased pain, swelling, warmth, or redness. Red streaks leading from the area. Pus draining from the area and/or fever to seek immediate medical attention. Essential hypertension 78426250 I10 BP likley elevated due to pain will hold change in medication s for now. [id number] Kaleb Hines MD Main Office [address] [place] [address] 05/24/2020 09:55:46 05/24/2020 10:51:06 Chronic pain syndrome 000402845 G89.4 No changes in meds. Atrial fibrillation 4943 6004 I48.91 Had ablation in 2018 and is back in afib. Followed by cardiology in the past but would like to be followed here for now. He is currently stable and stable on meds. Essential hypertension 16400864 I10 Good control; continue current mgmt Degenerati on of lumbar intervertebral disc 99425429 M51.36 Chronic problem. Has a narcotics contract. [id number] Kaleb Hines MD Main Office [address] [place] [address] 08/28/2020 10:21:42 08/28/2020 10:52:17 Chronic pain syndrome 862228156 G89.4 No changes in meds. Atrial fibrillation 4943 6004 I48.91 Had ablation in 2018 and is back in afib. Followed by cardiology in the past but would like to be followed here for now. He is currently stable and stable on meds. Essential hypertension 80951005 I10 Good control; continue current mgmt [id number] YOLANDA Gamino [facility] [address] [place] [address] 09/05/2020 11:59:42 09/05/2020 15:58:05 Nausea and vomiting 80777622 R11.2 patient with ? food poisoning after eating lobster on Thursday however he does ahve body aches and chills that are ongoing, nausea and not eating much. Will rx zofran to be used as needed up to tid. start with bland foods, lots of fluids and advance diet as tolerated. Will also check covid test as he was at a concert unmasked and has N/V/D, chills, body aches. Exposure t o viral disease 7459771923 92021 Z03.818 isolate, hydration, rest. [id number] Kaleb Hines MD Main Office [address] [place] [address] 10/31/2020 09:52:12 10/31/2020 10:51:27 Adult health examination 521957135 Z00.00 Had a colonoscop y done in April 2019 and due again in 2024. He is UTD with vaccines including COVID and shingles. Amputated right lower limb below knee 750352812 Z89.511 Followed by specialist for his prosthesis and shoes. Anxiety state 983491329 F41.1 Not a constant problem. Uses lorazepam prn. Atrial fibrillation 4943 6004 I48.91 Had ablation in 2017 and is back in afib. Followed by cardiology in the past but now followed here. He is currently stable on meds. Degenerati on of lumbar intervertebral disc 87368724 M51.36 Chronic problem. Has a narcotics contract. Essential hypertension 93033539 I10 Good control; continue current mgmt Hyperlipidemia 03285476 E78.5 Insomnia 162611962 G47.0 0 Under control with gabapentin at bedtime. Neuropathy due to diabetes mellitus 085708989 E11.40 Excellent A1C. He would like to remain on meds. Body mass index 40+ - severely obese 982697441 E66.01 Pain in left knee 607995 7301 19971 M25.562 Recent infection and hematoma/s welling has left him unable to ambulate more than a few feet and also has difficulty standing. [id number] Kaleb Hines MD Main Office [address] [place] [address] 02/04/2021 10:34:20 02/04/2021 11:24:52 Chronic pain 20817467 G89.29 He has joints pains in his knees and LBP. Meds help. Neuropathy due to diabetes mellitus 225020421 E11.40 Excellent A1C. He would like to remain on meds. Essential hypertension 37260570 I10 Good control; continue current mgmt Amputated right lower limb below knee 736851589 Z89.511 Followed by specialist for his prosthesis and shoes. [id number] Kaleb Hines MD Main Office [address] [facility] [address] [place] [address] 05/06/2021 11:22:22 05/06/2021 12:01:08 Chronic pain syndrome 567932331 G89.4 No changes in meds. 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 DM under control after 50 lb weight loss. Atrial fibrillation 4943 6004 I48.91 Had ablation in 2018 and is back in afib. Followed by cardiology in the past but now followed here. He is currently stable on meds. Essential hypertension 70437520 I10 Good control; continue current mgmt [id number] Kaleb Hines MD Main Office [address] [facility] [address] [facility] [place] [place] [address] 08/05/2021 10:18:09 08/05/2021 11:03:32 Chronic pain syndrome 513698353 G89.4 No changes in meds. Amputated right lower limb below knee 366651747 Z89.511 Followed by specialist for his prosthesis and shoes. Osteoarthr itis of left knee joint 1665302209 12839 M17.12 Will be having a knee replacemen t done in October. Atrial fibrillation 4943 6004 I48.91 Had ablation in 2018 and is back in afib. Followed by cardiology in the past but now followed here. He is currently stable on meds. Essential hypertension 79703563 I10 Good control; continue current mgmt [id number] Main Office [address] [facility] [address] [facility] [place] [address] 09/16/2021 15:15:15 09/16/2021 16:10:47 Cyst of skin 776304123 L72.9 - abscess-pa tient agreed to aspiration risk discussed with patient but not limited to bleeding/i nfection.- Area was cleansed and prep, he declined anesthesia and tolerated drainage well.-As patient has a hx of diabetes I will empiricall y cover with abx as well.-Warm compress advised.-I f Increased pain, swelling, warmth, or redness. Pus draining from the area and/or fever to seek immediate medical attention. Essential hypertension 61168740 I10 BP likley elevated due to pain will hold change in medication s for now.Have him follow up with PCP he is asymptomat ic, red flags discussed. Low sodium diet discussed Counseled on medication adherence Counseled on diet/exerc ise Advised to keep BP daily BP log and technique counseled. [id number] Kaleb Hines MD Main Office [address] [facility] 207 [facility] [place] [address] 10/02/2021 10:50:22 10/02/2021 12:03:06 Hypertensive disorder 10139243 I10 Running high. He will take metoprolol 200 mg (increased from 100 mg) and we will check with him next week. If still running high we will increase his losartan from 80 to 160 mg. Atrial fibrillation 4943 6004 I48.91 Had ablation in 2018 and is back in afib. Followed by cardiology in the past but now followed here. He is currently stable on meds. Chronic pain syndrome 37 5328677 G89.4 No changes in meds. Pain of knee region 1003 701784 M25.569 replacemen t scheduled for the end of the month by MALCOLM. [id number] Nadira Kirby Main Office [address] [facility] [address] [facility] [place] [address] 01/28/2022 10:13:05 01/28/2022 11:07:22 Chronic pain syndrome 780797858 G89.4 Stable on current mgmt with no SE's. Major depr essive disorder 141557477 F32.0 He ran out of meds and hasn't been taking anything for 4 weeks. Would like to restart. History of left total knee replacement 2372210785 568162 Z96.652 Surgery done 10/23/21 followed by PT. Much less pain and better movement. Degenerati on of lumbar intervertebral disc 50602414 M51.36 Chronic problem. Has a narcotics contract. [id number] Kaleb Hines MD Main Office [address] [facility] [address] [place] [address] 06/25/2022 09:30:22 06/25/2022 10:16:38 Adult health examination 947203143 Z00.00 Had a colonoscop y done in April 2019 and due again in 2024. He is UTD with vaccines including COVID and shingles. Chronic pain syndrome 37 1492625 G89.4 Stable on current mgmt with no SE's. Neuropathy due to diabetes mellitus 221698628 E11.40 A1C has been increasing . He would like to work on lifestyle changes before deciding on restarting meds. Will see him back in 3 months. Obstructiv e sleep apnea syndrome 71813419 G47.33 Wears a machine every night and sleeping well. Hyperlipidemia 27542971 E78.5 Degenerati on of lumbar intervertebral disc 32170438 M51.36 Chronic problem. Has a narcotics contract. Atrial fibrillation 4943 6004 I48.91 Had ablation in 2018 and is back in afib. Followed by cardiology in the past but now followed here. He is currently stable on meds. Amputated right lower limb below knee 417393746 Z89.511 Followed by specialist for his prosthesis and shoes. He requires a well-fitte d prosthesis to help him to maintain safe ambulation . Type 2 seymour betes mellitus 20742056 E11.9 A1C has been increasing . He would like to work on lifestyle changes before deciding on restarting meds. Will see him back in 3 months. Major depr essive disorder 413860967 F32.0 He ran out of meds and hasn't been taking anything for 4 weeks. Would like to restart. Body mass index 40+ - severely obese 786470526 E66.01 Nocturia 203447489 R35.1 [id number] Kaleb Hines MD Main Office [address] [facility] [address] [place] [address] 10/07/2022 13:20:58 10/07/2022 14:11:40 Chronic pain syndrome 500554390 G89.4 Stable on current mgmt with no SE's. 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 DM has been under control after 50 lb weight loss but his A1C is slowly increasing as is his weight. Will add ozempic which should help with both. Anxiety state 403506127 F41.1 Not a constant problem. Uses lorazepam prn. Amputated right lower limb below knee 194715625 Z89.511 Followed by specialist for his prosthesis and shoes. He requires a well-fitte d prosthesis to help him to maintain safe ambulation . [id number] Nadira Kirby Main Office [address] [facility] [address] [place] [address] 12/31/2022 08:58:28 12/31/2022 10:06:48 Disorder of nervous system due to diabetes mellitus [id number] E11.49 DM has been under control after 50 lb weight loss but his A1C was slowly increasing . We added ozempic which has helped with both his weight (losing 22 lbs) and his A1C which went down to 5.6, the lowest it has been in years. Hyperlipidemia 55630484 E78.5 Needs infl uenza immunization 473996808 Z23 Chronic pain syndrome 37 9077686 G89.4 He has joints pains in his knees and LBP. Meds help. Stable on current mgmt with no SE's. Pain of le ft ankle joint [id number] 1564693 M25.572 Bilateral hip joint pain [id number] M25.551 M25.552 Anxiety state 937870853 F41.1 Not a constant problem. Uses lorazepam prn. [id number] Kaleb Hines MD Main Office [address] [facility] [address] [place] [address] 04/17/2023 08:38:12 04/17/2023 09:36:13 Disorder of nervous system due to diabetes mellitus 171053230 E11.49 DM has been under control after 50 lb weight loss but his A1C was slowly increasing . We added ozempic which has helped with both his weight (losing 22 lbs) and his A1C which is currently at 5.7. Amputated right lower limb below knee 304045377 Z89.511 Followed by specialist for his prosthesis and shoes. He requires a well-fitte d prosthesis to help him to maintain safe ambulation . Atrial fibrillation 4943 6004 I48.91 Had ablation in 2018 and is back in afib. Followed by cardiology in the past but now followed here. He is currently stable on meds. Chronic pain syndrome 37 3252755 G89.4 He has joints pains in his knees and LBP. Meds help. Stable on current mgmt with no SE's. Obstructiv e sleep apnea syndrome 69014836 G47.33 Wears a machine every night and sleeping well. Ordering replacemen t bipap machine, previous machine broken, pt uses bipap and benefits from treatment. [id number] Nadira Mckeonvedo Main Office [address] [facility] [address] [place] [address] 06/09/2023 12:51:45 06/09/2023 14:16:05 Cellulitis of lower limb 345763450 L03.116 Abscess of skin and/or subcutaneous tissue 95113821 L02.91 [id number] GIA MARTIN Main Office [address] [facility] [address] [place] [address] 06/15/2023 09:28:35 06/15/2023 09:57:43 Cellulitis of lower limb 395685331 L03.116 -was given a 7 day course of doxycyclin e; has 1 day left of antibiotic -no erythema or swelling appreciate d on PE-area of slight firmness, tender, where abscess was located-pt and report of lorrainean veronica improvemen ts since starting antibiotic Abscess of skin and/or subcutaneous tissue 93757414 L02.91 -was referred to general surgery; pt waiting for call-repor ts the abscess burst and drained on 06/11-pt has been bandaging area, denies of any worsening symptoms [id number] Kaleb Hines MD Main Office [address] [facility] [address] [place] [address] 06/30/2023 10:05:04 06/30/2023 11:12:31 Chronic pain syndrome 968844437 G89.4 He has joints pains in his knees and LBP. Meds help. Stable on current mgmt with no SE's. Amputated right lower limb below knee 879416595 Z89.511 Followed by specialist for his prosthesis and shoes. He requires a well-fitte d prosthesis to help him to maintain safe ambulation . Atrial fibrillation 5307 6008 I48.91 Had ablation in 2018 and is back in afib. Followed by cardiology in the past but now followed here. He is currently stable on meds. Degenerati on of lumbar intervertebral disc 13533955 M51.36 Chronic problem. Has a narcotics contract. Essential hypertension 64659307 I10 Good control; continue current mgmt Hyperlipidemia 11617646 E78.5 Insomnia 851996160 G47.0 0 Under control with gabapentin at bedtime. Neuropathy due to diabetes mellitus 767774306 E11.40 A1C has been normal since he has been taking ozempic. Adult heal th examination 899081880 Z00.00 Had a colonoscop y done in April 2019 and due again in 2024. He is UTD with vaccines including COVID and shingles. Body mass index 40+ - severely obese 504316035 E66.01 Z68.41 He has been losing weight on ozempic. His goal is to get below 300lbs. [id number] Kaleb Hines MD Main Office [address] [place] [address] 08/04/2023 14:35:24 08/04/2023 15:42:12 Esophagitis 79925921 K20.90 This appears to be under good control currently with PPI twice a day. Will recheck his CBC to ensure that his WBC has come back to normal. Will also refer him to Dr Tate for further evaluation and possible EGD. [id number] Kaleb Hines MD Main Office [address] [place] [address] 10/07/2023 12:39:29 10/07/2023 13:21:56 Chronic pain syndrome 846884857 G89.4 He has joints pains in his knees and LBP. Meds help. Stable on current mgmt with no SE's. Amputated right lower limb below knee 957360827 Z89.511 Followed by specialist for his prosthesis and shoes. He requires a well-fitte d prosthesis to help him to maintain safe ambulation . 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 We added ozempic which has helped with both his weight and his A1C which was last at 5.3. He has lost 56 lbs in the last year. [id number] Kaleb Hines MD Main Office [address] [place] [address] 11/06/2023 07:32:46 11/06/2023 11:43:16 [id number] Kaleb Hines MD Main Office [address] [facility] [address] [place] [address] 11/11/2023 10:57:34 11/11/2023 11:55:28 Needs influenza immunization 108828684 Z23 19 YEARS AND OLDER ONLY Gastric ulcer 494146275 K25.9 Unclear etiology. Possibly secondary to recent EGD polyp biopsy or possibly from ozempic which is a rare SE. He is currently on pantoprazo le twice a day and recently had melena. Will check CBC today and next week to assure that it is not drifting down. Essential hypertension 68112587 I10 His valsartan and chlorthali done were both stopped while hospitaliz ed because of low BP. It has been running a little high since he has been home. He will restart the valsartan but will continue to hold the chlorthali done. Atrial fibrillation 4943 6004 I48.91 Had ablation in 2018 and eventually went back into afib. Seen by cardiology during this admission and his xarelto was held because of the GIB. He was instructed to restart it because he has been stable from a GI standpoint but he and his want to stay off it for now. Instead he will take an aspirin and he will be schedule for a watchman procedure sometime in the coming 6 weeks. [id number] Kaleb Hines MD Main Office [address] [facility] [address] [place] [address] 01/27/2024 13:34:01 01/27/2024 14:20:07 Neuropathy due to diabetes mellitus 424489395 E11.40 A1C has been very good since he has been taking ozempic. Currently 5.8. We discussed increasing his gabapentin but he would like to stay on the same dose. Chronic pain syndrome 37 7659183 G89.4 He has joints pains in his knees and LBP. Meds help. Stable on current mgmt with no SE's. Iron defic iency anemia 67300256 D50.9 His H/H is low but has remained steady over the last couple of months. He denies any obvious blood loss and has not been taking iron supplement s. He will start daily iron and vitamin C and will be seen by GI next month. I will see him in 3 months. [id number] Kaleb Hines MD Main Office [address] [facility] [address] [facility] [place] [address] 04/26/2024 10:06:33 04/26/2024 10:26:01 Chronic pain syndrome 891882102 G89.4 He has joints pains in his knees and LBP. Meds help. Stable on current mgmt with no SE's. Antibiotic prophylaxis indicated 336034959 Z78.9 Hypertensive disorder 38 028565 I10 Running high. He was off the metoprolol and just restarted today. Iron defic iency anemia 03249477 D50.9 Had blood loss after an EGD with a bx causing a gastric ulcer and bleeding after a polypectom y. He has been on iron supplement s and vitamin C for 3 months. Will recheck CBC and iron studies. Hyperlipidemia 26829269 E78.5 On meds. Will recheck lipids. Health Concerns Section Related Observation LastModified by Organization Detai ls LastModified Time None Recorded Concern Status LastModified by Organization Details LastModified Time None Recorded Advance Directives Directive Y: Kaci Liban Payers Encounter Date Sequence Insurance Name Policy Number Policy Carr Covered Member ID Carr Member ID Guarantor Name 10/07/2023 1 [employer] [employer] [place] [place] [id number] Hugo Louie [id number] Hugo Louie 11/06/2023 1 [place] 33Skyla Louie [id number] Hugo Louie 11/11/2023 1 [place] 33Skyla Louie [id number] Hugo Louie 01/27/2024 1 [place] 33Skyla Louie [id number] Hugo Louie 04/26/2024 1 [place] 33Skyla Louie [id number] Hugo Luoie Notes Date Note Type Note Provider Name and Address Organization Details Recorded Time 10/07/2023 text/html Generic HPI TemplateReported bypatient.Notes:He has been doing well since his last appointment.Chronic pain remains stable.He continues to lose weight and his A1C is normal since starting ozempicHe will continue to work on lifestyle changes. Kaleb Hines MD [address] [facility] [address], [place], [address], [facility] 10/07/2023 13:58:20 11/06/2023 text/html Hospitalization Contact RecordReported bypatient.Follow UpHospital[facility]; admit date: (Please enter in format 'MM/DD/YYYY') (11/03/2023); date of discharge: (Please enter in format 'MM/DD/YYYY') (11/05/2023); date of contact: (Please enter in format 'MM/DD/YYYY') (11/06/2023)Notes:[facility] covered inpatient stay? noTOC with in 48 working hours? yes HCP on file? noMOLST on file? noDischarge Summary available? yesPt had hospital follow up scheduled by the time I received his d/c summary. PCP HEADS UP/FOLLOW UP- BP was low during hosp stay and BP meds including Valsartan and HCTZ were stopped- Please discuss resuming these meds.- Cleared to resume Xarelto- Metoprolol dose increased to 200 mg daily- Stopped Celecoxib- Repeat blood work- Please review list of meds- f/u with PCP Pt presented to [facility] 7 days after having an EGD at [facility] which showed 2 small polyps which were clipped, gastritis with hemorrhage, and normal duodenum. He was restarted on Xarelto, followed by weakness/fatigue all week and at least 3 episodes of melena with difficulty tolerating oral diet.Pt was found to be in AFIB w/RVR, mixed hypovolemic and hemorrhagic shock in setting of poor PO intake and GIB with SBP as low as 73/55.Pt given aggressive fluid replacement as well as 1 unit PRBC plus reversal of Xarelto with Kcentra. Started on Ceftriaxone , however d/c as no hx cirrhosis. Pt kept NPO and vitals monitored. Underwent EGD on 11/04/23, found to have an ulcer w/visible blood vessels at the site of the recent polypectomy which had been clipped. GI also found multiple polyps in the stomach as well as the dural area where bx were taken-RESULT ARE PENDING, NEED TO BE F/U OUTPT.H/H closely monitored, Xarelto was held, Protonix continued. Liquid diet started, tolerated well. Pt remained normotensive, H/H remained stable. GI cleared pt to restart Xarelto on 11/05/23.AFIB w/RVR could have been in the setting of low BP, shock and HR improved to 90's. Metoprolol dose was increased to 200 mg for better rate control. MEDS RECONCILED Kaleb Hines MD [address] [address], [place], [address], [facility] 11/06/2023 11:43:14 11/11/2023 text/html Hospitalization Contact RecordReported bypatient.Follow UpHospital: [facility]; admit date: (Please enter in format 'MM/DD/YYYY') (11/03/2023); date of discharge: (Please enter in format 'MM/DD/YYYY') (11/05/2023); date of contact: (Please enter in format 'MM/DD/YYYY') (11/06/2023)Notes:[facility] covered inpatient stay? noTOC with in 48 working hours? yes HCP on file? noMOLST on file? noDischarge Summary available? yesPt had hospital follow up scheduled by the time I received his d/c summary. PCP HEADS UP/FOLLOW UP- BP was low during hosp stay and BP meds including Valsartan and HCTZ were stopped- Please discuss resuming these meds.- Cleared to resume Xarelto- Metoprolol dose increased to 200 mg daily- Stopped Celecoxib- Repeat blood work- Please review list of meds- f/u with PCP Pt presented to [facility] 7 days after having had an EGD at [facility] which showed 2 small polyps which were clipped, gastritis with hemorrhage, and normal duodenum. He was restarted on Xarelto, followed by weakness/fatigue all week and at least 3 episodes of melena with difficulty tolerating oral diet. He fell in his kitchen because of weakness but denies syncope. His called the ambulance and he was brought to the ER.Pt was in AFIB which has been chronic and had mixed hypovolemic and hemorrhagic shock in the setting of a GIB with a BP as low as 73/55.Pt given aggressive fluid replacement as well as 1 unit PRBC plus reversal of Xarelto with Kcentra. Started on Ceftriaxone , however d/c as no infection. Pt kept NPO and vitals monitored. He underwent another EGD on 11/04/23, found to have an ulcer w/visible blood vessels at the site of the recent polypectomy which had been clipped. GI also found multiple polyps in the stomach as well as the dural area and bx were taken and found to be negative. Liquid diet started, tolerated well and he remained normotensive, H/H remained stable and he was dced home. He is now tolerating a normal diet and although he was cleared to restart the xarelto both he and his are concerned about this because his bleed was so recent so he hasn't restarted it. Because of his afib he understands the need for clot prevention and for now will start an aspirin. He was also seen by cardiology and will be scheduled for a watchman procedure which will obviate the need for oral anticoagulation. This should happen sometime within the next 6 weeks. His metoprolol was increased from 100 to 200 mg to get better rate control. While hospitalized his BP was low because of the bleed so his valsartan and chlorthalidone were held. Since he has been home his systolic BP is often >130 and his diastolic is >90. MEDS RECONCILED Kaleb Hines MD [address] [facility] [address], [place], [address], [facility] 11/12/2023 08:42:38 01/27/2024 text/html Diabetes F/URepo rted bypatient.Notes:Under good control with ozempic.Generic HPI TemplateReported bypatient.Notes:He has been doing well since his last appointment.Chronic pain remains stable.He weight has plateaued after losing more than 60 lbs.He will continue to work on lifestyle changes. He had a GI bleed 3 months ago and was admitted to [facility] and had an EGD showing an ulcer at the site where he had a polyp removed during an EGD done the week prior. He received PRBC's and his anticoagulation which he takes for afib was stopped. He has since restarted it and he denies any change in bowels or abdominal pain. Kaleb Hines MD [address] [address], [place], [address], [facility] 01/27/2024 17:52:51 04/26/2024 text/html AnemiaReported bypatient.Notes:He had a GI bleed after an EGD and developed anemia. He has been on iron supplements and vitamin C. He has been getting some hard stools on the iron.Generic HPI TemplateReported bypatient.Notes:He has been doing well since his last appointment.Chronic pain remains stable.His weight has plateaued after losing more than 50 lbs.He will continue to work on lifestyle changes. HyperlipidemiaReported bypatient.Notes:Last LDL was at goal. Will recheck fasting lipid level.Hypertension F/UReported bypatient.Associated Symptoms:no dizziness; no lightheadedness; no chest pain; no shortness of breath; no palpitations; no edema; no calf pain with exertion Lifestyle:limiting/ed iding salt;not exercising regularly Medications:taking medications as directed; no side effects from medication Kaleb Hines MD [address] [facility] [address], [place], [address], [facility] 04/26/2024 12:50:41
--- OUTSIDE RECORDS SUMMARY | 2024-05-04 02:23 | XMS_ITS | Encounter Summary ---
Author Name [facility] Organization [facility] Address [address] [place] [address] Care Team Providers Care [place]angel[place] Conservation Laborer Name Role Phone JUAN GOMEZ Primary Care Provider Unavaila ble Insurance Providers: All historical and current Section Date Range: From patient's date of to the date document was created. This section includes the names of all active insurance providers for the patient. Insurance Provider Type of Coverage Plan Name Start of Policy Coverage End of Policy Coverage Group Number Member ID Insurance Provider's Telephone Number Policy Carr's Name Patient's Relationship to Policy Acrr SAEED MORRIS CT FEDERAL PREFERRED PROVIDER ORGANIZAT ION (PPO) STAND JESSE FAMIL Y Mar 07, 2000 105 [id number] [phone] JAY KRISHNA PATIENT ANTHEM BCBS FEDERAL PREFERRED PROVIDER ORGANIZAT ION (PPO) STAND JESSE FAMIL Y Mar 07, 2000 105 [id number] JAY KRISHNA PATIENT ANTHEM BCBS FEDERAL PREFERRED PROVIDER ORGANIZAT ION (PPO) STAND JESSE SELF Mar 07, 2000 105 [id number] JAY KRISHNA PATIENT [place]BS [place] PREFERRED PROVIDER ORGANIZAT ION (PPO) STAND JESSE FAMIL Y Mar 07, 2000 105 [id number] JAY KRISHNA PATIENT [place] PREFERRED PROVIDER ORGANIZAT ION (PPO) STAND JESSE FAMIL Y Mar 07, 2000 105 [id number] JAY KRISHNA PATIENT [place] DENTAL DENTAL INSURANCE STAND JESSE Mar 07, 2000 DENTAL [id number] JAY KRISHNA PATIENT [place] PREFERRED PROVIDER ORGANIZAT ION (PPO) STAND JESSE FAMIL Y Mar 07, 2000 105 [id number] [phone] JAY KRISHNA PATIENT [place] FEDERAL PREFERRED PROVIDER ORGANIZAT ION (PPO) STAND JESSE FAMIL Y Mar 07, 2000 105 [id number] [phone] JAY KRISHNA PATIENT [place] FEP BCBS PRESCRIPT ION [place] FEPRX PLAN Mar 07, 2000 [id number] JAY KRISHNA PATIENT [place] FEPRX PLAN PRESCRIPT ION [employer] [employer] FEPRX Feb 23, 2010 [id number] JAY KRISHNA PATIENT [place] FEPRX PLAN PRESCRIPT ION [place] [employer] FEPRX Mar 07, 2000 [id number] [phone] JAY KRISHNA PATIENT [place]-F [place] BCBS PRESCRIPT ION BCBS FEP Feb 23, 2010 [id number] JAY KRISHNA PATIENT [place]-F EP BCBS PRESCRIPT ION FEP CAR[place] ARK Feb 23, 2010 [id number] JAY KRISHNA PATIENT [place]-F EP BCBS PRESCRIPT ION BCBS FEP PLAN Feb 23, 2010 [id number] JAY KRISHNA PATIENT MEDICARE ([facility]) MEDICARE () PART A May 25, 2011 PART A [id number] [facility] JAY KRISHNA PATIENT MEDICARE ([facility]) MEDICARE () PART A May 25, 2011 PART A [id number] [facility] JAY KRISHNA PATIENT MEDICARE ([facility]) MEDICARE () PART A May 25, 2011 PART A [id number] [facility] [phone] JAY KRISHNA PATIENT MEDICARE ([facility]) MEDICARE (M) PART A May 25, 2011 PART A [id number] JAY KRISHNA PATIENT MEDICARE (WNR) MEDICARE (M) PART A May 25, 2011 PART A [id number] JAY KRISHNA PATIENT MEDICARE (WNR) MEDICARE (M) PART A May 25, 2011 PART A [id number] JAY KRISHNA PATIENT MEDICARE (WNR) MEDICARE (M) PART A May 25, 2011 PART A [id number] 23 JAY KRISHNA PATIENT MEDICARE (WNR) MEDICARE (M) PART A May 25, 2011 PART A [id number] JAY KRISHNA PATIENT Selected Encounter This section includes the information on record at ID for the Encounter. Date/Time Encounter Type Encounter Description Reason Provider Source Apr 27, 2024 10:27 AM Outpatient Encounter DERMATOLOGY MAC ZUNIGA Encounter Template Text not used by ID Plan of Treatment: Future Appointments (+ 6 months) and Future Tests (+/- 45 days) The Plan of Treatment section includes future care activities for the patient from all [facility] This section includes future appointments and future orders which are active, pending or scheduled. Future Appointments This section includes appointments that were scheduled to occur 6 months from the date of the Encounter, up to a maximum of 20 appointments. The data comes from all ID treatment facilities. Appointment Date/Time Appointment Type Appointme nt Facility Name Apr 28, 2024 09:30 AM AMBULATORY - MEDICINE [facility] [place] [facility] May 03, 2024 08:00 AM AMBULATORY - MEDICINE ID [facility] [place] [facility] May 10, 2024 10:00 AM AMBULATORY - MEDICINE ID [facility] [place] [facility] June 29, 2024 10:30 AM AMBULATORY - MEDICINE ID [facility] [place] [facility] Aug 08, 2024 09:30 AM AMBULATORY - MEDICINE ID [facility] [place] [facility] Aug 09, 2024 11:00 AM AMBULATORY - MEDICINE ID [facility] [place] [facility] Oct 26, 2024 10:00 AM [facility] Active, Pending, and Scheduled Orders This section includes a listing of several types of active, pending, and scheduled orders, including clinic medications orders, diagnostic test orders, procedure orders and consult orders; where the start date of the order is 45 days before the date of the Encounter or 45 days after the date of theEncounter. The data comes from all ID treatment facilities. Test Date/Time Test Type Test Details Facility Name Apr 13, 2024 12:00 AM Laboratory - Chemi stry Order BASIC METABOLIC PANEL (non-fasting) BLOOD (SST-SERUM) SP [facility] [place] [facility] Apr 25, 2024 12:55 PM Consult Order COMMUNITY CARE-DENTAL GENERAL Cons Tax Services Manager's Choice ID [facility] [place] [facility] Apr 27, 2024 12:00 AM Laboratory - Chemi stry Order SURGICAL PATH ORDER SURG PATH SPEC. UNKNOWN SP [facility] [place] [facility] Apr 27, 2024 03:38 PM Consult Order SURGERY/CW M OUTPT Cons Tax Services Manager's Choice [facility] [place] [facility] May 03, 2024 04:19 PM Consult Order EYEGLASS R EQUEST - 4 SIGHT Cons Tax Services Manager's Choice [facility] [place] [facility] May 03, 2024 04:19 PM Consult Order EYEGLASS R EQUEST - 4 SIGHT Cons Tax Services Manager's Choice [facility] [place] [facility] May 03, 2024 04:19 PM Consult Order EYEGLASS R EQUEST - 4 SIGHT Cons Tax Services Manager's [facility] Vital Signs: All taken on the encounter date This section contains inpatient and outpatient Vital Signs collected on the date of the Encounter. Date/Time Temperature Pulse Blood Pressure Respiratory Rate SP02 Pain Height Weight Body Mass Index Source Apr 27, 2024 09:50 AM 90 143/89 [facility] [place] [facility] [facility] Apr 27, 2024 09:46 AM 88 143/82 [facility] Social History: Smoking Status (Most current) and Tobacco Use (All prior to encounter date) This section includes the most current, and the historical, smoking and tobacco- related health factors from the ID facility where the Encounter took place. Current Smoking Status This section includes the most current smoking, or tobacco-related health factor, from the ID facility where the Encounter took place. Date/Time Current Smoking Status Comment [facility] it July 24, 2023 10:00 AM VA-TOBACCO FORMER USER ID [facility] [place] [facility] Tobacco Use History This section includes a history of the smoking, or tobacco-related health factors, that were collected on or before the date of the Encounter. The data comes from the ID facility where the Encounter took place. Date/Time Smoking Status/Tobac co Use Comment Facility July 24, 2023 10:00 AM VA-TOBACCO QUIT 15 YRS OR MORE ID [facility] [place] [facility] July 14, 2022 03:30 PM VA-TOBACCO FORMER USER [facility] [place] [facility] July 14, 2022 03:30 PM VA-TOBACCO QUIT 15 YRS OR MORE [facility] [place] [facility] Aug 05, 2021 01:00 PM VA-TOBACCO FORMER USER ID [facility] [place] [facility] Aug 05, 2021 01:00 PM VA-TOBACCO QUIT 5 TO < 15 YRS [facility] [place] [facility] Sep 09, 2019 01:25 PM VA-TOBACCO FORMER USER ID [facility] [place] [facility] Sep 09, 2019 01:25 PM VA-TOBACCO QUIT 5 TO < 15 YRS ID [facility] [place] [facility] Dec 04, 2017 10:18 AM VA-TOBACCO FORMER USER [facility] [place] [facility] Dec 04, 2017 10:18 AM VA-TOBACCO QUIT 5 TO < 15 YRS [facility] [place] [facility] May 29, 2017 09:09 AM QUIT TOBACCO USE > 7 YEARS AGO [facility] [place] [facility] Apr 23, 2015 08:21 AM QUIT TOBACCO USE > 7 YEARS AGO [facility] [place] [facility] Apr 23, 2015 08:21 AM QUIT TOBACCO USE 1-7 YEARS AGO [facility] [place] [facility] Mar 06, 2011 11:06 AM QUIT TOBACCO USE 1-7 YEARS AGO [facility] [place] [facility] Apr 08, 2010 10:56 AM CURRENT SMOKER cigar once in a while [facility] [place] [facility] Apr 08, 2010 10:56 AM V1-PT DECLINES REF TO TOBACCO CESS PRGM [facility] Apr 08, 2010 10:56 AM V1-PT DECLINES [facility]ACCO [facility] Apr 08, 2010 10:56 AM V1-PT READY TO QUIT TOBACCO USE [facility] Feb 21, 2009 09:16 AM CURRENT SMOKER cigar once in a while [facility] Feb 21, 2009 09:16 AM V1-PT DECLINES REF TO TOBACCO CESS PRGM [facility] Feb 21, 2009 09:16 AM V1-PT DECLINES TOBACCO CESSATION MEDS [facility] Feb 21, 2009 09:16 AM V1-PT THINKING ABOUT QUIT TOBACCO USE [facility] Dec 16, 2007 09:15 AM QUIT TOBACCO USE 1-7 YEARS AGO [facility] Apr 01, 2007 11:08 AM QUIT TOBACCO USE 1-7 YEARS AGO [facility] Sep 28, 2006 08:52 AM QUIT TOBACCO USE IN PAST YEAR [facility] Apr 21, 2006 10:31 AM QUIT TOBACCO USE IN PAST YEAR August 2005 [facility] Dec 16, 2005 10:02 AM CURRENT SMOKER OCCASIONAL CIGAR [facility] May 19, 2001 03:50 PM CURRENT SMOKER see below [facility] Pathology Reports: +/- 30 days of the [...] the Encounter. The data comes from all [facility] facilities. Date/Time Pathology Report Provider Source May 02, 2024 10:07 AM LR SURGICAL PATHOLOGY REPORT: LOCAL TITLE: LR SURGICAL PATHOLOGY REPORT STANDARD TITLE: PATHOLOGY REPORT DATE OF NOTE: MAY 02, 2024@10:07:13 ENTRY DATE: MAY 02, 2024@10:07:13 AUTHOR: RADHA MARTINEZ MD EXP COSIGNER: URGENCY: STATUS: COMPLETED $APHDR Reporting Lab: [facility] [CLIA# [id number]] [address] [place] [address] - - - - - - - [...] (Received Apr 28, 2024): A:LEFT UPPER BACK SKIN([id number]) B:RIGHT UPPER BACK SKIN([id number]) - - - - - - - [...] - - - PATHOLOGY REPORT Accession No. [facility] 25 1510 - - - - - - - - - - - - - - - - - - - - - - - - - - - - - - - - - - - - - - - - GROSS DESCRIPTION: The specimen is recieved from [facility] 3630;A;1;KRISHNALuis A. Received in formalin labeled with the [...] Performing Laboratory: Surgical Pathology Report Performed By: [facility] [CLIA# [id number]] [address] [place] [address] $FTR - - - - - - [...] - - JAY KRISHNA STANDARD FORM 515 ID:[id number] SEX:M :1960 AGE: 64 LOC:*[facility] PCP: /daniela/ Radha Martinez MD, FRCPath Board Certified Dermatopathologist Signed: 05/02/2024 10:07 RADHA MARTINEZ MD [facility] May 02, 2024 10:04 AM LR SURGICAL PATHOLOGY REPORT: LOCAL TITLE: LR SURGICAL PATHOLOGY REPORT STANDARD TITLE: PATHOLOGY DIAGNOSTIC STUDY REPORT DATE OF NOTE: MAY 02, 2024@10:04:16 ENTRY DATE: MAY 02, 2024@10:04:16 AUTHOR: RADHA MARTINEZ MD EXP COSIGNER: URGENCY: STATUS: COMPLETED $APHDR Reporting [facility] [CLIA# [id number]] [address] [place] [id number] - - - - - - - [...] - - - PATHOLOGY REPORT Accession No. MAYRATH 25 82 - - - - - [...] - - - PATHOLOGY REPORT Accession No. GOPI - - - - - - - - - - - - - - - - - - - - - - - - - - - - - - - - - - - - - - - - Gross description: The specimen is recieved from [facility] 0266;A;1;KRISHNA,B A. Received in formalin labeled with the [...] cross section in cassette B2. GIA Pacheco ([facility]) 04/28/2024 A. Skin, left upper back: [...] for further evaluation and treatment. CPT codes 63271o0 /es/ RADHA MARTINEZ MD Board Certified Dermatopathologist Signed May 02, 2024@10:04 Performing Laboratory: Surgical Pathology Report Performed By: [facility] [CLIA# [id number]] [address] [place] [address] $FTR - - - - - - [...] - - JAY KRISHNA STANDARD FORM 515 ID:[id number] SEX:M :1960 AGE: 64 LOC:[facility] DERMATOLOGY PLUMBING ENGINEER 1 PM PCP: Juan Gomez NP /daniela/ RADHA MARTINEZ MD Board Certified Dermatopathologist Signed: 05/02/2024 10:04 RADHA MARTINEZ MD [facility] Encounter Notes: All associated encounter notes This section contains the clinical notes associated to the Encounter. Date/Time Encounter Note(s) Provider Source Apr 27, 2024 10:27 AM DERMATOLOGY OUTPAT IENT NOTE: LOCAL TITLE: DERMATOLOGY CLINIC NOTE STANDARD TITLE: DERMATOLOGY OUTPATIENT NOTE DATE OF NOTE: APR 27, 2024@10:27:30 ENTRY DATE: APR 27, 2024@10:27:30 AUTHOR: CLARK ZUNIGA EXP COSIGNER: URGENCY: STATUS: COMPLETED Staff Image Capture Jocelyn Note ==== A clinical image was captured using the ID Staff Image Capture [id number] Jocelyn. The patient verbally consented to having this image captured and stored in the patient's electronic health record. This image can be viewed in Squee. Comments about the image: Back lesions /daniela/ CLARK ZUNIGA DNP, HOME DEMONSTRATOR-C NURSE PRACTITIONER Signed: 04/27/2024 10:27 [facility]
--- OUTSIDE RECORDS SUMMARY | 2024-05-04 02:23 | XMS_ITS | Encounter Summary ---
Author Name [facility] [place] [facility] [place] Address [address] [place] [address] Care Team Providers Care Associate Chemist Name Role Phone JUAN GOMEZ Primary Care Provider Unavaileddie [facility] Insurance Providers: All historical and current Section [...] JESSE FAMIL Y Mar 07, 2000 [id number] [phone] JAY KRISHNA PATIENT ANTHEM BCBS FEDERAL PREFERRED PROVIDER ORGANIZAT ION (PPO) STAND JESSE FAMIL Y Mar 07, 2000 105 [id number] JAY KRISHNA PATIENT ANTHEM BCBS FEDERAL PREFERRED PROVIDER ORGANIZAT ION (PPO) STAND JESSE SELF Mar 07, 2000 105 [id number] JAY KRISHNA PATIENT BCBS [place] FEP PREFERRED PROVIDER ORGANIZAT ION (PPO) STAND JESSE FAMIL Y Mar 07, 2000 105 [id number] JAY KRISHNA PATIENT [place] PREFERRED PROVIDER ORGANIZAT ION (PPO) STAND JESSE FAMIL Y Mar 07, 2000 105 [id number] JAY KRISHNA PATIENT [place] DENTAL DENTAL INSURANCE STAND JESSE Mar 07, 2000 DENTAL [id number] JAY KRISHNA PATIENT [place] F[place] PREFERRED PROVIDER ORGANIZAT ION (PPO) STAND JESSE FAMIL Y Mar 07, 2000 105 [id number] [phone] JAY KRISHNA PATIENT [place] OF [place] FEDERAL PREFERRED PROVIDER ORGANIZAT ION (PPO) STAND JESSE FAMIL Y Mar 07, 2000 105 [id number] [phone] JAY KRISHNA PATIENT [place] FEP BCBS PRESCRIPT ION CAREM ARK FEPRX PLAN Mar 07, 2000 [id number] JAY KRISHNA PATIENT [place] FEPRX PLAN PRESCRIPT ION CAREM ARK FEPRX Feb 23, 2010 [id number] JAY KRISHNA PATIENT [place] FEPRX PLAN PRESCRIPT ION CAREM ARK FEPRX Mar 07, 2000 [id number] JAY KRISHNA PATIENT [place]-F EP BCBS PRESCRIPT ION BCBS FEP Feb 23, 2010 [id number] JAY KRISHNA PATIENT [place]-F EP BCBS PRESCRIPT ION FEP CAREM ARK Feb 23, 2010 [id number] JAY KRISHNA PATIENT [place]-F EP BCBS PRESCRIPT ION BCBS FEP PLAN Feb 23, 2010 [id number] JAY KRISHNA PATIENT MEDICARE ([facility]) MEDICARE () PART A May 25, 2011 PART A [id number] [facility] JAY KRISHNA PATIENT MEDICARE ([facility]) MEDICARE () PART A May 25, 2011 PART A [id number] JAY KRISHNA PATIENT MEDICARE ([facility]) MEDICARE () PART A May 25, 2011 PART A [id number] [facility] [phone] JAY KRISHNA PATIENT MEDICARE (WNR) MEDICARE (M) PART A May 25, 2011 PART A [id number] [phone] JAY KRISHNA PATIENT MEDICARE (WNR) MEDICARE (M) PART A May 25, 2011 PART A [id number] JAY KRISHNA PATIENT MEDICARE (WNR) MEDICARE (M) PART A May 25, 2011 PART A [id number] JAY KRISHNA PATIENT MEDICARE (WNR) MEDICARE (M) PART A May 25, 2011 PART A [id number] [phone] JAY KRISHNA PATIENT MEDICARE (WNR) MEDICARE (M) PART A May 25, 2011 PART A [id number] JAY KRISHNA PATIENT Selected Encounter This section includes the information on record at [place] for the Encounter. Date/Time Encounter Type Encounter Description Reason Provider Source Apr 27, 2024 09:30 AM MTMS BY СЕРГЕЙ PICKENS 15 MIN CLINICAL PHARMACY ICD-10-CM I10 Essential (primary) hypertension ALEJANDRA SNYDER [facility] Encounter Template Text not used by [place] Assessments - Encounter Diagnoses This section includes the primary and secondary diagnoses documented for the Encounter. Date/Time Primary/Secondary Diagnosis Diagnosis Name Provider Source Apr 28, 2024 08:59 AM PRIMARY Essential (primary) hypertension ALEJANDRA SNYDER [facility] [place] [facility] Plan of Treatment: Future Appointments (+ 6 months) and Future Tests (+/- 45 days) The Plan of Treatment section includes future care activities for the patient from all [place] treatmentfacilities. This section includes future appointments and future orders which are active, pending or scheduled. Future Appointments This section includes appointments that were scheduled to occur 6 months from the date of the Encounter, up to a maximum of 20 appointments. The data comes from all [place] treatment facilities. Appointment Date/Time Appointment Type Appointme nt Facility Name Apr 28, 2024 09:30 AM AMBULATORY - MEDICINE [facility] [place] [facility] May 03, 2024 08:00 AM AMBULATORY - MEDICINE [facility] [place] [facility] May 10, 2024 10:00 AM AMBULATORY - MEDICINE [place] [facility] [place] [facility] June 29, 2024 10:30 AM AM[facility]ULATORY [facility] MEDICINE [facility] [place] [facility] Aug 08, 2024 09:30 AM AMBULATORY - MEDICINE [facility] [place] [facility] Aug 09, 2024 11:00 AM AMBULATORY - MEDICINE [facility] [place] [facility] Oct 26, 2024 10:00 AM [facility] Active, Pending, and Scheduled Orders This section includes a listing of several types of active, pending, and scheduled orders, including clinic medications orders, diagnostic test orders, procedure orders and consult orders; where the start date of the order is 45 days before the date of the Encounter or 45 days after the date of theEncounter. The data comes from all [place] treatment facilities. Test Date/Time Test Type Test Details Facility Name Apr 13, 2024 12:00 AM Laboratory - Chemi stry Order BASIC METABOLIC PANEL (non-fasting) BLOOD (SST-SERUM) SP [place] [facility] [place] [facility] Apr 25, 2024 12:55 PM Consult Order COMMUNITY CARE-DENTAL GENERAL Cons 4Th Grade Math Teacher's Choice [facility] [place] [facility] Apr 27, 2024 12:00 AM Laboratory - Chemi stry Order SURGICAL PATH ORDER SURG PATH SPEC. UNKNOWN SP [place] [facility] [place] [facility] Apr 27, 2024 03:38 PM Consult Order SURGERY/CW M OUTPT Cons 4Th Grade Math Teacher's Choice [facility] [place] [facility] May 03, 2024 04:19 PM Consult Order EYEGLASS R EQUEST - 4 SIGHT Cons 4Th Grade Math Teacher's Choice [facility] [place] [facility] May 03, 2024 04:19 PM Consult Order EYEGLASS R EQUEST - 4 SIGHT Cons 4Th Grade Math Teacher's Choice [facility] [place] [facility] May 03, 2024 04:19 PM Consult Order EYEGLASS R EQUEST - 4 SIGHT Cons 4Th Grade Math Teacher's Choice [facility] [place] [facility] Vital Signs: All taken on the encounter date This section contains inpatient and outpatient Vital Signs collected on the date of the Encounter. Date/Time Temperature Pulse Blood Pressure Respiratory Rate SP02 Pain Height Weight Body Mass Index Source Apr 27, 2024 09:50 AM 90 143/89 [facility] [place] [facility] Apr 27, 2024 09:46 AM 88 143/82 [facility] [place] [facility] Social History: Smoking Status (Most current) and Tobacco Use (All prior to encounter date) This section includes the most current, and the historical, smoking and tobacco- related health factors from the [place] facility where the Encounter took place. Current Smoking Status This section includes the most current smoking, or tobacco-related health factor, from the [place] facility where the Encounter took place. Date/Time Current Smoking Status Comment Facil ity July 24, 2023 10:00 AM VA-TOBACCO FORMER USER [facility] [place] [facility] Tobacco Use History This section includes a history of the smoking, or tobacco-related health factors, that were collected on or before the date of the Encounter. The data comes from the [place] facility where the Encounter took place. Date/Time Smoking Status/Tobac co Use Comment Facility July 24, 2023 10:00 AM VA-TOBACCO QUIT 15 YRS OR MORE [facility] [place] [facility] July 14, 2022 03:30 PM VA-TOBACCO FORMER USER [facility] [place] [facility] July 14, 2022 03:30 PM VA-TOBACCO QUIT 15 YRS OR MORE [facility] [place] [facility] Aug 05, 2021 01:00 PM VA-TOBACCO FORMER USER [facility] [place] [facility] Aug 05, 2021 01:00 PM VA-TOBACCO QUIT 5 TO < 15 YRS [facility] [place] [facility] Sep 09, 2019 01:25 PM VA-TOBACCO FORMER USER [facility] [place] [facility] Sep 09, 2019 01:25 PM VA-TOBACCO QUIT 5 TO < 15 YRS [facility] [place] [facility] Dec 04, 2017 10:18 AM VA-TOBACCO FORMER USER [facility] [place] [facility] Dec 04, 2017 10:18 AM VA-TOBACCO QUIT 5 TO < 15 YRS [facility] [place] [facility] May 29, 2017 09:09 AM QUIT TOBACCO USE > 7 YEARS AGO [facility] [place] [facility] Apr 23, 2015 08:21 AM QUIT TOBACCO USE > 7 YEARS AGO [facility] [place] [facility] Apr 23, 2015 08:21 AM QUIT TOBACCO USE 1-7 YEARS AGO [facility] [place] [facility] Mar 06, 2011 11:06 AM QUIT TOBACCO USE 1-7 YEARS AGO [facility] Apr 08, 2010 10:56 AM CURRENT SMOKER cigar once in a while [facility] Apr 08, 2010 10:56 AM V1-PT DECLINES REF TO TOBACCO CESS PRGM [facility] Apr 08, 2010 10:56 AM V1-PT DECLINES TOBACCO CESSATION MEDS [facility] Apr 08, 2010 10:56 AM V1-PT READY TO QUIT TOBACCO USE [facility] Feb 21, 2009 09:16 AM CURRENT SMOKER cigar once in a while [facility] Feb 21, 2009 09:16 AM V1-PT DECLINES REF TO TOBACCO CESS PRGM [facility] Feb 21, 2009 09:16 AM V1-PT DECLINES TOBACCO CESSATION MEDS [facility] Feb 21, 2009 09:16 AM V1-PT THINKING ABOUT QUIT TOBACCO USE [facility] Dec 16, 2007 09:15 AM QUIT TOBACCO USE 1-7 YEARS AGO [facility] Apr 01, 2007 11:08 AM QUIT TOBACCO USE 1-7 YEARS AGO [facility] Sep 28, 2006 08:52 AM QUIT TOBACCO USE IN PAST YEAR [facility] Apr 21, 2006 10:31 AM QUIT TOBACCO USE IN PAST YEAR August 2005 [facility] Dec 16, 2005 10:02 AM CURRENT SMOKER OCCASIONAL CIGAR [facility] May 19, 2001 03:50 PM CURRENT SMOKER see below [facility] Pathology Reports: +/- 30 days of the [...] the Encounter. The data comes from all [place] treatment facilities. Date/Time Pathology Report Provider Source May 02, 2024 10:07 AM LR SURGICAL PATHOLOGY REPORT: LOCAL TITLE: LR SURGICAL PATHOLOGY REPORT STANDARD TITLE: PATHOLOGY REPORT DATE OF NOTE: MAY 02, 2024@10:07:13 ENTRY DATE: MAY 02, 2024@10:07:13 AUTHOR: RADHA MARTINEZ MD EXP COSIGNER: URGENCY: STATUS: COMPLETED $APHDR Reporting Lab: [facility] [CLIA# [id number]] [address] [place] [phone] - - - - - - - [...] (Received Apr 28, 2024): A:LEFT UPPER BACK SKIN([id number]) B:RIGHT UPPER BACK SKIN([id number]) - - - - - - - [...] - - - PATHOLOGY REPORT Accession No. [facility] 1510 - - - - - - - - - - - - - - - - - - - - - - - - - - - - - - - - - - - - - - - - GROSS DESCRIPTION: The specimen is recieved from [facility], [facility] 3657;A;1;KRISHNA,B A. Received in formalin labeled with the [...] in cassette B2. GIA Pacheco (ASCP) 04/28/2024 /juliane Martinez MD, CPjessy Board Certified Dermatopathologist Signed May 02, 2024@10:07 Performing Laboratory: Surgical Pathology Report Performed By: [facility] [CLIA# [id number]] [address] [place] [phone] $FTR - - - - - - - - - - - - - - - - - - - - - - - - - - - - - - - - - - - - - - - - (End of report) RADHA MARTINEZ MD, MD mm Date May 02, 2024 - - - - - - - - - - - - - - - - - - - - - - - - - - - - - - - - - - - - - - - - JAY KRISHNA STANDARD FORM 515 ID:[id number] SEX:M :1960 AGE: 64 LOC:*[facility] PCP: /juliane Martinez MD, CPjessy Board Certified Dermatopathologist Signed: 05/02/2024 10:07 RADHA MARTINEZ MD [facility] May 02, 2024 10:04 AM LR SURGICAL PATHOLOGY REPORT: LOCAL TITLE: LR SURGICAL PATHOLOGY REPORT STANDARD TITLE: PATHOLOGY DIAGNOSTIC STUDY REPORT DATE OF NOTE: MAY 02, 2024@10:04:16 ENTRY DATE: MAY 02, 2024@10:04:16 AUTHOR: RADHA MARTINEZ MD EXP COSIGNER: URGENCY: STATUS: COMPLETED $APHDR Reporting Lab: [facility] [CLIA# [id number]] [address] [place] [phone] - - - - - - - [...] - - - PATHOLOGY REPORT Accession No. [facility] 82 - - - - - - [...] - - - - BRIEF CLINICAL HISTORY: [place] [id number] SPECIMEN A- L UPPER BACK 2MM HYPERPIGMENTED [...] - - - PATHOLOGY REPORT Accession No. [facility] 82 - - - - - - - - - - - - - - - - - - - - - - - - - - - - - - - - - - - - - - - - Gross description: The specimen is recieved from [facility]/Mandi jane, [facility] 1510;A;1;KRISHNA,B A. Received in formalin labeled with the [...] cross section in cassette B2. GIA Pacheco ([facility]) 04/28/2024 A. Skin, left upper back: Lentiginous [...] for further evaluation and treatment. CPT codes 07660v2 /es/ RADHA MARTINEZ MD Board Certified Dermatopathologist Signed May 02, 2024@10:04 Performing Laboratory: Surgical Pathology Report Performed By: [facility] [CLIA# [id number]] [address] [place] [phone] $FTR - - - - - - - - - - - - - - - - - - - - - - - - - - - - - - - - - - - - - - - - (End of report) RADHA MARTINEZ MD, MD mm Date May 02, 2024 - - - - - - - - - - - - - - - - - - - - - - - - - - - - - - - - - - - - - - - - JAY KRISHNA STANDARD FORM 515 ID:[id number] SEX:M :1960 AGE: 64 LOC:[facility] DERMATOLOGY CASINO ASSISTANT MANAGER 1 PM PCP: Juan Gomez, CASINO ASSISTANT MANAGER /es/ RADHA MARTINEZ MD Board Certified Dermatopathologist Signed: 05/02/2024 10:04 RADHA MARTINEZ MD [facility] Encounter Notes: All associated encounter notes This section contains the clinical notes associated to the Encounter. Date/Time Encounter Note(s) Provider Source Apr 28, 2024 08:59 AM ADDENDUM: LOCAL TITLE: Addendum STANDARD TITLE: ADDENDUM DATE OF NOTE: APR 28, 2024@08:59:17 ENTRY DATE: APR 28, 2024@08:59:17 AUTHOR: ALEJANDRA SNYDER COSIGNER: URGENCY: STATUS: COMPLETED Will ask [facility] to please schedule patient for: [X] [facility] PHARM PACT 3 RTC order placed. Appointment Length: _30__ minutes. 06/29/24 @1030 Thank you! /juliane SNYDER PHARMD,BCPS CLINICAL PHARMACY PRACTITIONER Signed: 04/28/2024 08:59 Receipt Acknowledged By: 04/28/2024 09:43 /es/ ADIN OWEN ADVANCED SUPERVISOR HARVESTING --- Original Document --- 04/27/24 PHARMACY CLINIC NOTE: JAY KRISHNA, 64 yo WHITE MALE, presents for [id number] follow up visit for htn management. Pt was last seen on 03/16/24 in which chlorthalidone 25 mg once daily was initiated. Metoprolol ER 200 mg daily and valsartan 160 mg daily were initiated. Today, pt reports he is doing ok. He reports some BP up and down. He brought his home BP cuff with him. He notes he hasnt been exercising as much as he normally does d/t the weather. He denies increase in urination or any ADRS to chlorthalidone. He notes some constipation - thinks d/t iron. He is seen by non- [facility] PCP . He just had labs for civilian provider, which he provides. Denies any ADRS to current medication regimen. Current htn medications: - metorpolol ER 200 mg daily - valsartan 160 mg - chlorthalidone 25 mg Previous htn medications: - hctz - stopped by [facility] when hospitalized. Medication Adherence: - daily Headaches: sometimes Chest pain: once in a while SOB: not much SOB upon exertion: a little Dizziness: not bad - if stands up too quick may get dizzy Diet Patterns: patient eats on avg. 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: 04/27/24 SBP DBP - 153 117 141 103 163 115 150 110 154 102 138 96 172 112 152 98 139 96 131 96 123 100 160 103 144 93 122 91 145 99 113 75 140 91 128 84 131 100 112 70 105 89 125 85 88 65 117 76 120 80 133 82 - Average 135 93 SMBP assessment: average at goal, pt denies dizziness when bp was 88/65 Allergies/ADR: ERYTHROMYCIN Active and Recently Outpatient Medications (including Supplies): Active Outpatient Medications Status 1) CARBOXYMETHYLCELLULOSE NA 0.5% OPH SOLN INSTILL 1 DROP INTO ACTIVE EACH EYE FOUR TIMES A DAY Indication: FOR DRY EYE 2) CLOBETASOL PROPIONATE 0.05% CREAM APPLY A THIN LAYER ACTIVE TOPICALLY TWICE DAILY FOR ITCHING/RASH APPLY TO AFFECTED AREAS FOR 2 WEEKS, THEN NEEDED Indication: FOR SKIN INFLAMMATION 3) CLOTRIMAZOLE 1% TOP SOLN APPLY 1 DROP TOPICALLY ONCE DAILY ACTIVE FOR FUNGAL INFECTION APPLY TO NAILS WHEN DRY Indication: TOE NAIL FUNGUS 4) METRONIDAZOLE 0.75% TOP GEL APPLY SMALL AMOUNT TOPICALLY ACTIVE TWICE DAILY Indication: FOR ACNE ROSACEA 5) PANTOPRAZOLE NA 40MG EC TAB TAKE ONE TABLET BY MOUTH TWICE ACTIVE DAILY BEFORE A MEAL Indication: FOR EXCESSIVE PRODUCTION OF STOMACH ACID 6) SILDENAFIL CITRATE 100MG TAB TAKE ONE TABLET BY MOUTH ONCE ACTIVE DAILY TAKE 1 HOUR PRIOR TO SEXUAL ACTIVITY Indication: FOR ERECTILE DYSFUNCTION 7) SIMVASTATIN 80MG TAB TAKE ONE-HALF TABLET BY MOUTH EVERY ACTIVE EVENING FOR CHOLESTEROL 8) VALSARTAN 160MG TAB TAKE ONE TABLET BY MOUTH ONCE DAILY ACTIVE (S) Indication: FOR HIGH BLOOD PRESSURE Pending Outpatient Medications Status 1) CHLORTHALIDONE 25MG TAB TAKE ONE TABLET BY MOUTH ONCE DAILY PENDING TO REMOVE FLUID/CONTROL BLOOD PRESSURE Indication: FOR HIGH BLOOD PRESSURE Inactive Outpatient Medications Status 1) HYDROCHLOROTHIAZIDE 25MG TAB TAKE ONE TABLET BY MOUTH EVERY DISCONTINUED DAY TO PREVENT FLUID/CONTROL BLOOD PRESSURE 2) METOPROLOL SUCCINATE 50MG SA TAB TAKE THREE TABLETS BY MOUTH DISCONTINUED ONCE DAILY FOR BLOOD PRESSURE/HEART Indication: FOR HIGH BLOOD PRESSURE 3) OMEPRAZOLE 20MG EC CAP TAKE ONE CAPSULE BY MOUTH TWICE DAILY DISCONTINUED BEFORE A MEAL Indication: FOR GASTROESOPHAGEAL REFLUX DISEASE 4) OMEPRAZOLE 20MG EC CAP TAKE ONE CAPSULE BY MOUTH EVERY DISCONTINUED MORNING 30 MINUTES BEFORE BREAKFAST (EDIT) Indication: FOR GASTROESOPHAGEAL REFLUX DISEASE 5) RIVAROXABAN 20MG TAB TAKE ONE TABLET BY MOUTH EVERY EVENING DISCONTINUED WITH FOOD 6) SILDENAFIL CITRATE 100MG TAB TAKE ONE TABLET BY MOUTH ONCE DISCONTINUED DAILY TAKE 1 HOUR PRIOR TO SEXUAL ACTIVITY (EDIT) 7) VALSARTAN 80MG TAB TAKE ONE TABLET BY MOUTH ONCE DAILY Active Non-VA Medications Status 1) Non-VA ASCORBIC ACID 500MG TAB 500MG BY MOUTH ONCE DAILY ACTIVE 2) Non-VA ASPIRIN 325MG EC TAB 325MG BY MOUTH ONCE DAILY ACTIVE 3) Non-VA CLOPIDOGREL BISULFATE 75MG TAB 75MG BY MOUTH ONCE ACTIVE DAILY Indication: TO PREVENT BLOOD CLOTS 4) Non-VA FERROUS SULFATE 325MG TAB 325MG BY MOUTH ONCE DAILY ACTIVE Indication: TO SUPPLEMENT IRON 5) Non-VA FLUOXETINE HCL 20MG CAP 20MG BY MOUTH ONCE DAILY ACTIVE 6) Non-VA GABAPENTIN 300MG CAP 300MG BY MOUTH BEDTIME ACTIVE 7) Non-VA METOPROLOL SUCCINATE 200MG SA TAB 200MG BY MOUTH ONCE ACTIVE DAILY Indication: afibb 8) Non-VA OXYCODONE HCL 5MG TAB NOT SA 5MG BY MOUTH EVERY ACTIVE 8 HOURS NEEDED 9) Non-VA SEMAGLUTIDE 2MG/0.75ML INJ PEN 3ML 2MG SUBCUTANEOUSLY ACTIVE ONCE A WEEK Indication: FOR TYPE 2 DIABETES MELLITUS 25 Total Medications Labs: CHEM 7 TREND LAB CUMULATIVE SELECTED Collection DT Spec GLUCOSE BUN CREATIN Sodium K+/Pot CL CO2 02/11/2024 07:51 SERUM 110 H 11 0.84 142 4.6 108 24 08/11/2023 08:54 SERUM 114 H 10 0.86 137 4.0 106 22 01/23/2023 07:40 SERUM 118 H 13 0.95 138 4.3 102 27 07/25/2022 10:59 SERUM 15 0.88 06/02/2022 07:57 SERUM 137 H 15 0.86 137 3.9 102 24 Collection DT Spec eGFR 02/14/2009 08:06 SERUM >60 05/08/2008 08:38 SERUM >60 02/01/2008 10:05 SERUM >60 09/28/2006 09:15 SERUM >60 LAB CUMULATIVE SELECTED 2 No selection items chosen for this component. CHEM 7 Results Collection DT Spec Sodium K+/Pot CL CO2 GLUCOSE BUN eGFR 02/11/2024 07:51 SERUM 142 4.6 108 24 110 H 11 08/11/2023 08:54 SERUM 137 4.0 106 22 114 H 10 01/23/2023 07:40 SERUM 138 4.3 102 27 118 H 13 07/25/2022 10:59 SERUM 15 06/02/2022 07:57 SERUM 137 3.9 102 24 137 H 15 02/03/2022 07:46 SERUM 138 4.7 106 26 141 H 13 08/01/2021 10:56 SERUM 141 4.2 105 25 115 H 16 12/20/2019 10:15 SERUM 138 4.4 99 L 29 121 H 14 03/28/2019 11:09 SERUM 140 4.5 103 26 104 H 14 eGFR CKD-EPI 202002/11/24 07:51 >90 SERUM LIVER PANEL TREND Collection DT Spec AST ALT T BILI ALK MERLIN T. PROT ALBUMIN 02/11/2024 07:51 SERUM 19 14 1.0 72 7.3 4.0 08/11/2023 08:54 SERUM 23 20 1.9 H 66 7.1 3.9 01/23/2023 07:40 SERUM 37 H 38 1.6 H 80 7.5 4.1 06/02/2022 07:57 SERUM 27 23 1.5 H 77 7.1 4.1 02/03/2022 07:46 SERUM 29 26 1.0 83 7.1 4.0 HEMOGLOBIN A1C TREND Collection DT Spec HGBA1c 02/11/2024 07:51 BLOOD 5.3 08/11/2023 08:54 BLOOD 5.0 01/23/2023 07:40 BLOOD 5.5 06/02/2022 07:57 BLOOD 6.4 H 02/03/2022 07:46 BLOOD 6.4 H LIPID PANEL TREND Collection DT Spec CHOL HDL CHO/HDL LDL-d LDL-c TRIG 02/11/2024 07:51 SERUM 128 34 L 3.8 78 81 08/11/2023 08:54 SERUM 112 35 L 3.2 52 127 01/23/2023 07:40 SERUM 187 30 L 6.2 111 228 H 06/02/2022 07:57 SERUM 130 27 L 4.8 69 171 H 02/03/2022 07:46 SERUM 135 32 L 4.2 77 128 04/15/24: Non Va labs - BUN: 14 Creatnine: 1.02 Sodium: 138 Potassium: 4.1 Chloride: 98 Vitals: Ht: 75 in [190.5 cm] (02/11/2024 09:45) Wt: 327 lb [148.32 kg] (02/11/2024 09:45) BMI: BMI: 41.0 ASSESSMENT: Goal BP = <130/80 mmHg In office BP readings 03/16/24: SBP DBP 155 105 145 102 156 113 Average 152 107 In office BP readings 04/28/24: SBP DBP 143 82 VA 153 103 Home cuff 147 96 Home cuff 143 89 VA Average 147 93 -Lipids:LDL above goal, previously controlled PLAN: Home BP cuff is close to VA readings, additionally pt did put cuff on himself and readings were not lower than VA auto cuff. Will continue current regimen at this time considering home BP readings are much improved with current regimen and pt is going to likely increase exercise as weather is getting warmer. - Medication management: - CONTINUE - metorpolol ER 200 mg daily - CONTINUE - valsartan 160 mg - CONTINUE - chlorthalidone 25 mg daily - SMBP at least twice a week - Healthy dietary and lifestyle modifications encouraged - Labs: prn EDUCATION -A shared decision-making approach was used in the development of this plan, involving the , clinician, and any caregivers present. The was provided the opportunity express questions or concerns, and the plan was adjusted as needed to address these concerns. -Reviewed with [place] any new medications, changes to the medication list, education, and plan from today's visit. Patient (and/or caregiver) verbalized understanding of the plan, including possible known risks and benefits, and had no additional questions. RTC: 06/29/24 @1030 Time Spent: 30 mins PBM PharmD Pharmacotherapy Rem V12: PHARMACIST INTERVENTIONS: HYPERTENSION Medication monitoring, no dosage change required, continue to monitor and assess /daniela/ ALEJANDRA SNYDER PHARMD,[facility] CLINICAL PHARMACY PRACTITIONER Signed: 04/28/2024 08:59 ALEJANDRA SNYDER [facility] Apr 27, 2024 08:38 AM PHARMACY OUTPATIENT NOTE: LOCAL TITLE: PHARMACY CLINIC NOTE STANDARD TITLE: PHARMACY OUTPATIENT NOTE DATE OF NOTE: APR 27, 2024@08:38 ENTRY DATE: APR 27, 2024@08:38:57 AUTHOR: ALEJANDRA SNYDER EXP COSIGNER: URGENCY: STATUS: COMPLETED PHARMACY CLINIC NOTE Has ADDENDA JAY KRISHNA, 64 yo WHITE MALE, presents for [id number] follow up visit for htn management. Pt was last seen on 03/16/24 in which chlorthalidone 25 mg once daily was initiated. Metoprolol ER 200 mg daily and valsartan 160 mg daily were initiated. Today, pt reports he is doing ok. He reports some BP up and down. He brought his home BP cuff with him. He notes he hasnt been exercising as much as he normally does d/t the weather. He denies increase in urination or any ADRS to chlorthalidone. He notes some constipation - thinks d/t iron. He is seen by [facility] . He just had labs for civilian provider, which he provides. Denies any ADRS to current medication regimen. Current htn medications: - metorpolol ER 200 mg daily - valsartan 160 mg - chlorthalidone 25 mg Previous htn medications: - hctz - stopped by [facility] when hospitalized. Medication Adherence: - daily Headaches: sometimes Chest pain: once in a while SOB: not much SOB upon exertion: a little Dizziness: not bad - if stands up too quick may get dizzy Diet Patterns: patient eats on avg. 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: 04/27/24 SBP DBP - 153 117 141 103 163 115 150 110 154 102 138 96 172 112 152 98 139 96 131 96 123 100 160 103 144 93 122 91 145 99 113 75 140 91 128 84 131 100 112 70 105 89 125 85 88 65 117 76 120 80 133 82 - Average 135 93 SMBP assessment: average at goal, pt denies dizziness when bp was 88/65 Allergies/ADR: ERYTHROMYCIN Active and Recently Outpatient Medications (including Supplies): Active Outpatient Medications Status 1) CARBOXYMETHYLCELLULOSE NA 0.5% OPH SOLN INSTILL 1 DROP INTO ACTIVE EACH EYE FOUR TIMES A DAY Indication: FOR DRY EYE 2) CLOBETASOL PROPIONATE 0.05% CREAM APPLY A THIN LAYER ACTIVE TOPICALLY TWICE DAILY FOR ITCHING/RASH APPLY TO AFFECTED AREAS FOR 2 WEEKS, THEN NEEDED Indication: FOR SKIN INFLAMMATION 3) CLOTRIMAZOLE 1% TOP SOLN APPLY 1 DROP TOPICALLY ONCE DAILY ACTIVE FOR FUNGAL INFECTION APPLY TO NAILS WHEN DRY Indication: TOE NAIL FUNGUS 4) METRONIDAZOLE 0.75% TOP GEL APPLY SMALL AMOUNT TOPICALLY ACTIVE TWICE DAILY Indication: FOR ACNE ROSACEA 5) PANTOPRAZOLE NA 40MG EC TAB TAKE ONE TABLET BY MOUTH TWICE ACTIVE DAILY BEFORE A MEAL Indication: FOR EXCESSIVE PRODUCTION OF STOMACH ACID 6) SILDENAFIL CITRATE 100MG TAB TAKE ONE TABLET BY MOUTH ONCE ACTIVE DAILY TAKE 1 HOUR PRIOR TO SEXUAL ACTIVITY Indication: FOR ERECTILE DYSFUNCTION 7) SIMVASTATIN 80MG TAB TAKE ONE-HALF TABLET BY MOUTH EVERY ACTIVE EVENING FOR CHOLESTEROL 8) VALSARTAN 160MG TAB TAKE ONE TABLET BY MOUTH ONCE DAILY ACTIVE (S) Indication: FOR HIGH BLOOD PRESSURE Pending Outpatient Medications Status 1) CHLORTHALIDONE 25MG TAB TAKE ONE TABLET BY MOUTH ONCE DAILY PENDING TO REMOVE FLUID/CONTROL BLOOD PRESSURE Indication: FOR HIGH BLOOD PRESSURE Inactive Outpatient Medications Status 1) HYDROCHLOROTHIAZIDE 25MG TAB TAKE ONE TABLET BY MOUTH EVERY DISCONTINUED DAY TO PREVENT FLUID/CONTROL BLOOD PRESSURE 2) METOPROLOL SUCCINATE 50MG SA TAB TAKE THREE TABLETS BY MOUTH DISCONTINUED ONCE DAILY FOR BLOOD PRESSURE/HEART Indication: FOR HIGH BLOOD PRESSURE 3) OMEPRAZOLE 20MG EC CAP TAKE ONE CAPSULE BY MOUTH TWICE DAILY DISCONTINUED BEFORE A MEAL Indication: FOR GASTROESOPHAGEAL REFLUX DISEASE 4) OMEPRAZOLE 20MG EC CAP TAKE ONE CAPSULE BY MOUTH EVERY DISCONTINUED MORNING 30 MINUTES BEFORE BREAKFAST (EDIT) Indication: FOR GASTROESOPHAGEAL REFLUX DISEASE 5) RIVAROXABAN 20MG TAB TAKE ONE TABLET BY MOUTH EVERY EVENING DISCONTINUED WITH FOOD 6) SILDENAFIL CITRATE 100MG TAB TAKE ONE TABLET BY MOUTH ONCE DISCONTINUED DAILY TAKE 1 HOUR PRIOR TO SEXUAL ACTIVITY (EDIT) 7) VALSARTAN 80MG TAB TAKE ONE TABLET BY MOUTH ONCE DAILY Active Non-[facility] Medications Status 1) Non-VA ASCORBIC ACID 500MG TAB 500MG BY MOUTH ONCE DAILY ACTIVE 2) Non-VA ASPIRIN 325MG EC TAB 325MG BY MOUTH ONCE DAILY ACTIVE 3) Non-VA CLOPIDOGREL BISULFATE 75MG TAB 75MG BY MOUTH ONCE ACTIVE DAILY Indication: TO PREVENT BLOOD CLOTS 4) Non-VA FERROUS SULFATE 325MG TAB 325MG BY MOUTH ONCE DAILY ACTIVE Indication: TO SUPPLEMENT IRON 5) Non-VA FLUOXETINE HCL 20MG CAP 20MG BY MOUTH ONCE DAILY ACTIVE 6) Non-VA GABAPENTIN 300MG CAP 300MG BY MOUTH BEDTIME ACTIVE 7) Non-VA METOPROLOL SUCCINATE 200MG SA TAB 200MG BY MOUTH ONCE ACTIVE DAILY Indication: afibb 8) Non-VA OXYCODONE HCL 5MG TAB NOT SA 5MG BY MOUTH EVERY ACTIVE 8 HOURS NEEDED 9) Non-VA SEMAGLUTIDE 2MG/0.75ML INJ PEN 3ML 2MG SUBCUTANEOUSLY ACTIVE ONCE A WEEK Indication: FOR TYPE 2 DIABETES MELLITUS 25 Total Medications Labs: CHEM 7 TREND LAB CUMULATIVE SELECTED Collection DT Spec GLUCOSE BUN CREATIN Sodium K+/Pot CL CO2 02/11/2024 07:51 SERUM 110 H 11 0.84 142 4.6 108 24 08/11/2023 08:54 SERUM 114 H 10 0.86 137 4.0 106 22 01/23/2023 07:40 SERUM 118 H 13 0.95 138 4.3 102 27 07/25/2022 10:59 SERUM 15 0.88 06/02/2022 07:57 SERUM 137 H 15 0.86 137 3.9 102 24 Collection DT Spec eGFR 02/14/2009 08:06 SERUM >60 05/08/2008 08:38 SERUM >60 02/01/2008 10:05 SERUM >60 09/28/2006 09:15 SERUM >60 LAB CUMULATIVE SELECTED 2 No selection items chosen for this component. CHEM 7 Results Collection DT Spec Sodium K+/Pot CL CO2 GLUCOSE BUN eGFR 02/11/2024 07:51 SERUM 142 4.6 108 24 110 H 11 08/11/2023 08:54 SERUM 137 4.0 106 22 114 H 10 01/23/2023 07:40 SERUM 138 4.3 102 27 118 H 13 07/25/2022 10:59 SERUM 15 06/02/2022 07:57 SERUM 137 3.9 102 24 137 H 15 02/03/2022 07:46 SERUM 138 4.7 106 26 141 H 13 08/01/2021 10:56 SERUM 141 4.2 105 25 115 H 16 12/20/2019 10:15 SERUM 138 4.4 99 L 29 121 H 14 03/28/2019 11:09 SERUM 140 4.5 103 26 104 H 14 eGFR CKD-EPI 202002/11/24 07:51 >90 SERUM LIVER PANEL TREND Collection DT Spec AST ALT T BILI ALK MERLIN T. PROT ALBUMIN 02/11/2024 07:51 SERUM 19 14 1.0 72 7.3 4.0 08/11/2023 08:54 SERUM 23 20 1.9 H 66 7.1 3.9 01/23/2023 07:40 SERUM 37 H 38 1.6 H 80 7.5 4.1 06/02/2022 07:57 SERUM 27 23 1.5 H 77 7.1 4.1 02/03/2022 07:46 SERUM 29 26 1.0 83 7.1 4.0 HEMOGLOBIN A1C TREND Collection DT Spec HGBA1c 02/11/2024 07:51 BLOOD 5.3 08/11/2023 08:54 BLOOD 5.0 01/23/2023 07:40 BLOOD 5.5 06/02/2022 07:57 BLOOD 6.4 H 02/03/2022 07:46 BLOOD 6.4 H LIPID PANEL TREND Collection DT Spec CHOL HDL CHO/HDL LDL-d LDL-c TRIG 02/11/2024 07:51 SERUM 128 34 L 3.8 78 81 08/11/2023 08:54 SERUM 112 35 L 3.2 52 127 01/23/2023 07:40 SERUM 187 30 L 6.2 111 228 H 06/02/2022 07:57 SERUM 130 27 L 4.8 69 171 H 02/03/2022 07:46 SERUM 135 32 L 4.2 77 128 04/15/24: Non Va labs - BUN: 14 Creatnine: 1.02 Sodium: 138 Potassium: 4.1 Chloride: 98 Vitals: Ht: 75 in [190.5 cm] (02/11/2024 09:45) Wt: 327 lb [148.32 kg] (02/11/2024 09:45) BMI: BMI: 41.0 ASSESSMENT: Goal BP = <130/80 mmHg In office BP readings 03/16/24: SBP DBP 155 105 145 102 156 113 Average 152 107 In office BP readings 04/28/24: SBP DBP 143 82 VA 153 103 Home cuff 147 96 Home cuff 143 89 VA Average 147 93 -Lipids:LDL above goal, previously controlled PLAN: Home BP cuff is close to [facility] readings, additionally pt did put cuff on himself and readings were not lower than [facility] auto cuff. Will continue current regimen at this time considering home BP readings are much improved with current regimen and pt is going to likely increase exercise as weather is getting warmer. - Medication management: - CONTINUE - metorpolol ER 200 mg daily - CONTINUE - valsartan 160 mg - CONTINUE - chlorthalidone 25 mg daily - SMBP at least twice a week - Healthy dietary and lifestyle modifications encouraged - Labs: prn EDUCATION -A shared decision-making approach was used in the development of this plan, involving the [place], clinician, and any caregivers present. The was provided the opportunity express questions or concerns, and the plan was adjusted as needed to address these concerns. -Reviewed with [place] any new medications, changes to the medication list, education, and plan from today's visit. Patient (and/or caregiver) verbalized understanding of the plan, including possible known risks and benefits, and had no additional questions. RTC: 06/29/24 @1030 Time Spent: 30 mins PBM PharmD Pharmacotherapy Rem V12: PHARMACIST INTERVENTIONS: HYPERTENSION Medication monitoring, no dosage change required, continue to monitor and assess /juliane SNYDER PHARMD,RAJIV CLINICAL PHARMACY PRACTITIONER Signed: 04/28/2024 08:59 04/28/2024 ADDENDUM STATUS: COMPLETED Will ask [facility] to please schedule patient for: [X] [facility] PHARM PACT 3 RTC order placed. Appointment Length: _30__ minutes. 06/29/24 @1030 Thank you! /juliane SNYDER PHARMD,RAJIV CLINICAL PHARMACY PRACTITIONER Signed: 04/28/2024 08:59 Receipt Acknowledged By: * AWAITING SIGNATURE * LEXII ROSEN JODI A [facility]
--- OUTSIDE RECORDS SUMMARY | 2024-05-04 02:24 | XMS_ITS | Clinical Summary ---
Author Organization [facility] Address [address] [place] [address] Care Team Providers Care Market Intelligence Consultant Name Role Phone Pcp, No Primary Care Provider Unavailabl e Allergies Active Allergy Reactions Criticality Noted Date Comments Erythromycin Other (See Comments) 06/16/2023 FINGER SWELLING Social History Tobacco Use Types Packs/Day Years Used Date Smoking Tobacco: Never Assessed Sex and Gender Information Value Date Recorded Sex Assigned at Male 06/15/2023 10:38 AM EDT Gender Identity Male 06/15/2023 10:38 AM EDT Sexual Orientation Other 06/15/2023 10 :38 AM EDT Plan of Treatment Health Maintenance Due Date Last Done Comments Hepatitis C Virus Screening 1961 HIV Screening 1974 DTaP/Tdap/Td Vaccines (1 - Tdap) 01/25/1980 Colonoscopy 2006 Pneumococcal Vaccines 50+ (1 of 1 - PCV) 2011 Zoster (Shingles) Vaccine (1 of 2) 2011 RSV Vaccine 60 years and older and Patients (1 - Risk 60-74 years 1-dose series) 2021 Influenza Vaccine 09/24/2023 12/31/2022, , 11/29/2021, Additional history exists COVID-19 Vaccine ( season) 2023 11/29/2021, 06/03/2021, 12/28/2020, Additional history exists Hepatitis B Vaccines Aged Out No long er eligible based on patient's age to complete this topic Care Teams Market Intelligence Consultant Relationship Specialty Start Date End Date Pcp, No PCP - General General Medicine 06/16/23
--- OUTSIDE RECORDS SUMMARY | 2024-05-04 02:24 | XMS_ITS ---
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 Name Role Phone JUAN GOMEZ Primary Care Provider Unavaileddie [facility] Insurance Providers: All historical and current [...] JESSE FAMIL Y Mar 07, 2000 [id number] [phone] JAY KRISHNA PATIENT ANTHEM BCBS FEDERAL PREFERRED PROVIDER ORGANIZAT ION (PPO) STAND JESSE FAMIL Y Mar 07, 2000 105 [id number] JAY KRISHNA PATIENT ANTHEM BCBS FEDERAL PREFERRED PROVIDER ORGANIZAT ION (PPO) STAND JESSE SELF Mar 07, 2000 [id number] JAY KRISHNA PATIENT BCBS [place] FEP PREFERRED PROVIDER ORGANIZAT ION (PPO) STAND JESSE FAMIL Y Mar 07, 2000 105 [id number] JAY KRISHNA PATIENT [place] PREFERRED PROVIDER ORGANIZAT ION (PPO) STAND JESSE FAMIL Y Mar 07, 2000 105 [id number] JAY KRISHNA PATIENT [place] DENTAL DENTAL INSURANCE STAND JESSE Mar 07, 2000 DENTAL [id number] JAY KRISHNA PATIENT [place] F[place] PREFERRED PROVIDER ORGANIZAT ION (PPO) STAND JESSE FAMIL Y Mar 07, 2000 105 [id number] [phone] JAY KRISHNA PATIENT [place] OF [place] FEDERAL PREFERRED PROVIDER ORGANIZAT ION (PPO) STAND JESSE FAMIL Y Mar 07, 2000 105 [id number] [phone] JAY KRISHNA PATIENT [place] FEP BCBS PRESCRIPT ION CAREM ARK FEPRX PLAN Mar 07, 2000 [id number] JAY KRISHNA PATIENT [place] FEPRX PLAN PRESCRIPT ION CAREM ARK FEPRX Feb 23, 2010 [id number] JAY KRISHNA PATIENT [place] FEPRX PLAN PRESCRIPT ION CAREM ARK FEPRX Mar 07, 2000 [id number] JAY KRISHNA PATIENT [place]EMARK-F EP BCBS PRESCRIPT ION BCBS FEP Feb 23, 2010 [id number] JAY KRISHNA PATIENT [place]EMARK-F EP BCBS PRESCRIPT ION FEP CAREM ARK Feb 23, 2010 [id number] JAY KRISHNA PATIENT [place]-F EP BCBS PRESCRIPT ION BCBS FEP PLAN Feb 23, 2010 [id number] JAY KRISHNA PATIENT MEDICARE ([facility]) MEDICARE () PART A May 25, 2011 PART A [id number] [facility] JAY KRISHNA PATIENT MEDICARE ([facility]) MEDICARE () PART A May 25, 2011 PART A [id number] [id number] JAY KRISHNA PATIENT MEDICARE ([facility]) MEDICARE () PART A May 25, 2011 PART A [id number] [facility] JAY KRISHNA PATIENT MEDICARE (WNR) MEDICARE (M) PART A May 25, 2011 PART A [id number] JAY KIRSHNA PATIENT MEDICARE (WNR) MEDICARE (M) PART A May 25, 2011 PART A [id number] [facility] JAY KRISHNA PATIENT MEDICARE (WNR) MEDICARE (M) PART A May 25, 2011 PART A [id number] [facility] JAY KRISHNA PATIENT MEDICARE (WNR) MEDICARE (M) PART A May 25, 2011 PART A [id number] [facility] [phone] [id number] JAY KRISHNA PATIENT MEDICARE (WNR) MEDICARE (M) PART A May 25, 2011 PART A [id number] [facility] JAY KRISHNA PATIENT Selected Encounter This section includes the information on record at [place] for the Encounter. Date/Time Encounter Type Encounter Description Reason Provider Source May 03, 2024 08:00 AM OFFICE O/P EST MOD 30 MIN OPTOMETRY ICD-10-CM E11.9 Type 2 diabetes mellitus without complications MELVA LUNA Skyla Encounter Template Text not used by [place] Assessments - Encounter Diagnoses This section includes the primary and secondary diagnoses documented for the Encounter. Date/Time Primary/Secondary Diagnosis Diagnosis Name Provider Source May 03, 2024 12:26 PM PRIMARY Type 2 diabetes mellitus without complications MELVA LUNA [facility] [place] [facility] May 03, 2024 12:26 PM SECONDARY Dry eye syndrome of bilateral lacrimal glands MELVA LUNA [facility] [place] [facility] May 03, 2024 12:26 PM SECONDARY Endothelial corneal dystrophy, bilateral MELVA LUNA [facility] [place] [facility] May 03, 2024 12:26 PM SECONDARY Presbyopia MELVA LUNA [facility] [place] [facility] May 03, 2024 12:26 PM SECONDARY Presence of intraocular lens MELVA LUNA [facility] [place] [facility] May 03, 2024 12:26 PM SECONDARY Unspecified retinal detachment with retinal break, right eye MELVA LUNA [facility] [place] [facility] Plan of Treatment: Future Appointments (+ 6 months) and Future Tests (+/- 45 days) The Plan of Treatment section includes future care activities for the patient [facility] [place] [facility] This section includes future appointments and future orders which are active, pending or scheduled. Future Appointments This section includes appointments that were scheduled to occur 6 months from the date of the Encounter, up to a maximum of 20 appointments. The data comes from all [facility]. Appointment Date/Time Appointment Type Appointme nt Facility Name May 10, 2024 10:00 AM [facility]UL[facility] June 29, 2024 10:30 AM [facility] Aug 08, 2024 09:30 AM [facility] Aug 09, 2024 11:00 AM AMBULATORY - [facility] Oct 26, 2024 10:00 AM AMBULATORY - MEDICINE HI [facility] Active, Pending, and Scheduled Orders This section includes a listing of several types of active, pending, and scheduled orders, including clinic medications orders, diagnostic test orders, procedure orders and consult orders; where the start date of the order is 45 days before the date of the Encounter or 45 days after the date of theEncounter. The data comes from all [facility]. Test Date/Time Test Type Test Details Facility Name Apr 13, 2024 12:00 AM Laboratory - Chemi stry Order BASIC METABOLIC PANEL (non-fasting) BLOOD (SST-SERUM) SP [facility] Apr 25, 2024 12:55 PM Consult Order COMMUNITY CARE-DENTAL GENERAL Cons Procedure [facility] Apr 27, 2024 12:00 AM Laboratory - Chemi stry Order SURGICAL PATH ORDER SURG PATH SPEC. UNKNOWN SP [facility] Apr 27, 2024 03:38 PM Consult Order SURGERY/CW M OUTPT Cons Procedure [facility] May 03, 2024 04:19 PM Consult Order EYEGLASS R EQUEST - 4 SIGHT Cons Procedure [facility] May 03, 2024 04:19 PM Consult Order EYEGLASS R EQUEST - 4 SIGHT Cons Procedure Manager's Choice [facility] [place] [facility] May 03, 2024 04:19 PM Consult Order EYEGLASS R EQUEST - 4 SIGHT Cons Procedure Manager's Choice [facility] [place] [facility] Social History: Smoking Status (Most current) and Tobacco Use (All prior to encounter date) This section includes the most current, and the historical, smoking and tobacco- related health factors from the [place] facility where the Encounter took place. Current Smoking Status This section includes the most current smoking, or tobacco-related health factor, from the [place] facility where the Encounter took place. Date/Time Current Smoking Status Comment [facility] it July 24, 2023 10:00 AM VA-TOBACCO FORMER USER [place] [facility] [place] [facility] Tobacco Use History This section includes a history of the smoking, or tobacco-related health factors, that were collected on or before the date of the Encounter. The data comes from the [place] facility where the Encounter took place. Date/Time Smoking Status/Tobac co Use Comment Facility July 24, 2023 10:00 AM VA-TOBACCO QUIT 15 YRS OR MORE [facility] [place] [facility] July 14, 2022 03:30 PM VA-TOBACCO FORMER USER [facility] [place] [facility] July 14, 2022 03:30 PM VA-TOBACCO QUIT 15 YRS OR MORE [facility] [place] [facility] Aug 05, 2021 01:00 PM VA-TOBACCO FORMER USER [facility] [place] [facility] Aug 05, 2021 01:00 PM VA-TOBACCO QUIT 5 TO < 15 YRS [facility] [place] [facility] Sep 09, 2019 01:25 PM VA-TOBACCO FORMER USER [facility] [place] [facility] Sep 09, 2019 01:25 PM VA-TOBACCO QUIT 5 TO < 15 YRS [facility] [place] [facility] Dec 04, 2017 10:18 AM VA-TOBACCO FORMER USER [facility] [place] [facility] Dec 04, 2017 10:18 AM VA-TOBACCO QUIT 5 TO < 15 YRS [facility] [place] [facility] May 29, 2017 09:09 AM QUIT TOBACCO USE > 7 YEARS AGO [facility] [place] [facility] Apr 23, 2015 08:21 AM QUIT TOBACCO USE > 7 YE[facility] A[facility] [place] [facility] Apr 23, 2015 08:21 AM QUIT TOBACCO USE 1-7 YEARS AGO [facility] [place] [facility] Mar 06, 2011 11:06 AM QUIT TOBACCO USE 1-7 YEARS AGO [facility] [place] [facility] Apr 08, 2010 10:56 AM CURRENT SMOKER cigar once in a while [facility] [place] [facility] Apr 08, 2010 10:56 AM V1-PT DECLINES REF TO TOBACCO CESS PRGM [facility] [place] [facility] Apr 08, 2010 10:56 AM V1-PT DECLINES TOBACCO CESSATION MEDS [facility] [place] [facility] Apr 08, 2010 10:56 AM V1-PT READY TO QUIT TOBACCO USE [facility] [place] [facility] Feb 21, 2009 09:16 AM CURRENT SMOKER cigar once in a while [facility] Feb 21, 2009 09:16 AM V1-PT DECLINES REF TO TOBACCO CESS PRGM [facility] [place] [facility] Feb 21, 2009 09:16 AM V1-PT DECLINES TOBACCO CESSATION MEDS [facility] Feb 21, 2009 09:16 AM V1-PT THINKING ABOUT QUIT TOBACCO USE [facility] [place] [facility] Dec 16, 2007 09:15 AM QUIT TOBACCO USE 1-7 YEARS AGO [facility] [place] [facility] Apr 01, 2007 11:08 AM QUIT TOBACCO USE 1-7 YEARS AGO [facility] [place] [facility] Sep 28, 2006 08:52 AM QUIT TOBACCO USE IN PAST YEAR [facility] [place] [facility] Apr 21, 2006 10:31 AM QUIT TOBACCO USE IN PAST YEAR August 2005 [facility] [place] [facility] Dec 16, 2005 10:02 AM CURRENT SMOKER OCCASIONAL CIGAR [facility] [place] [facility] May 19, 2001 03:50 PM CURRENT SMOKER see below [facility] Pathology Reports: +/- 30 days of [...] the Encounter. The data comes from all [facility] facilities. Date/Time Pathology Report Provider Source May 02, 2024 10:07 AM LR SURGICAL PATHOLOGY REPORT: LOCAL TITLE: LR SURGICAL PATHOLOGY REPORT STANDARD TITLE: PATHOLOGY REPORT DATE OF NOTE: MAY 02, 2024@10:07:13 ENTRY DATE: MAY 02, 2024@10:07:13 AUTHOR: RADHA MARTINEZ MD EXP COSIGNER: URGENCY: STATUS: COMPLETED $APHDR Reporting Lab: [facility] [CLIA# [id number]] [address] [place] [address] - - - - - - - [...] (Received Apr 28, 2024): A:LEFT UPPER BACK SKIN([id number]) B:RIGHT UPPER BACK SKIN([id number]) - - - - - - - [...] - - - PATHOLOGY REPORT Accession No. [facility] 151 - - - - - - - - - - - - - - - - - - - - - - - - - - - - - - - - - - - - - - - - GROSS DESCRIPTION: The specimen is recieved from [facility], [facility] 9800;A;1;Luis KRISHNA A. Received in formalin labeled with the [...] GIA Pacheco (ASCP) 04/28/2024 /juliane Martinez MD, Charline Board Certified Dermatopathologist Signed May 02, 2024@10:07 Performing Laboratory: Surgical Pathology Report Performed By: [facility] [CLIA# [id number]] [address] [place] [address] $FTR - - - - - - [...] - - JAY KRISHNA STANDARD FORM 515 ID:[id number] SEX:M :1960 AGE: 64 LOC:*[facility] PCP: /juliane Martinez MD, CPjessy Board Certified Dermatopathologist Signed: 05/02/2024 10:07 RADHA MARTINEZ MD [facility] May 02, 2024 10:04 AM LR SURGICAL PATHOLOGY REPORT: LOCAL TITLE: LR SURGICAL PATHOLOGY REPORT STANDARD TITLE: PATHOLOGY DIAGNOSTIC STUDY REPORT DATE OF NOTE: MAY 02, 2024@10:04:16 ENTRY DATE: MAY 02, 2024@10:04:16 AUTHOR: RADHA MARTINEZ MD EXP COSIGNER: URGENCY: STATUS: COMPLETED $APHDR Reporting Lab: [facility] [CLIA# [id number]] [address] [place] [id number] - - - - - - - [...] - - - PATHOLOGY REPORT Accession No. [id number] - - - - - - [...] - - - PATHOLOGY REPORT Accession No. [facility] - - - - - - - - - - - - - - - - - - - - - - - - - - - - - - - - - - - - - - - - Gross description: The specimen is recieved from [facility], [facility] 1510;A;1;KRISHNALuis A. Received in formalin labeled with the [...] cross section in cassette B2. GIA Pacheco ([facility]) 04/28/2024 A. Skin, left upper [...] for further evaluation and treatment. CPT codes 63651e1 /es/ RADHA MARTINEZ MD Board Certified Dermatopathologist Signed May 02, 2024@10:04 Performing Laboratory: Surgical Pathology Report Performed By: [facility] [CLIA# [id number]] [address] [place] [id number] $FTR - - - - - - [...] - - JAY KRISHNA STANDARD FORM 515 ID:[id number] SEX:M :1960 AGE: 64 LOC:[facility] DERMATOLOGY SHEAR OPERATOR 1 PM PCP: Juan Gomez, SHEAR OPERATOR /es/ RADHA MARTINEZ MD Board Certified Dermatopathologist Signed: 05/02/2024 10:04 RADHA MARTINEZ MD [facility] Encounter Notes: All associated encounter notes This section contains the clinical notes associated to the Encounter. Date/Time Encounter Note(s) Provider Source May 03, 2024 07:20 AM OPTOMETRY NOTE: LOCAL TITLE: OPTOMETRY NOTE STANDARD TITLE: OPTOMETRY NOTE DATE OF NOTE: MAY 03, 2024@07:20 ENTRY DATE: MAY 03, 2024@07:20:59 AUTHOR: JYOTI HODGE EXP COSIGNER: MELAV LUNA URGENCY: STATUS: COMPLETED OPTOMETRY NOTE Has ADDENDA Active problems - Computerized Problem List is the source for the followin. Polyp of colon 2. Long-term current use of anticoagulant 3. Atrial fibrillation 4. Primary erectile dysfunction 5. History of amputation of leg above ankle 6. History of cholecystectomy 7. Obstructive sleep apnea syndrome 8. Diabetic foot ulcer 9. status post knee replacement 10. Opiate Dependence * 11. Diabetes mellitus (SNOMED CT 04423430) 12. Atrial fibrillation (SNOMED CT 85804739) 13. Benign essential hypertension (SNOMED CT 8038420) 14. Family History of Ischemic Heart Disease 15. Obesity (SNOMED CT 532209643) 16. Hyperlipidemia 17. Chronic Low Back Pain 18. Peripheral Neuropathy Active Outpatient Medications (including Supplies): Active Outpatient Medications Status 1) CHLORTHALIDONE 25MG TAB TAKE ONE TABLET BY MOUTH ONCE DAILY ACTIVE (S) TO REMOVE FLUID/CONTROL BLOOD PRESSURE Indication: FOR HIGH BLOOD PRESSURE 2) CLOBETASOL PROPIONATE 0.05% CREAM APPLY A [...] TWICE DAILY Indication: FOR ACNE ROSACEA 5) MICONAZOLE NITRATE 2% TOP PWDR APPLY SMALL AMOUNT TOPICALLY ACTIVE TWICE DAILY NEEDED Indication: FOR FUNGAL INFECTION OF SKIN 6) MOISTURIZING (EQV-LUBRIDERM)UNSCENT LOT APPLY LIBERAL AMOUNT ACTIVE TOPICALLY DIRECTED Indication: DRY SKIN 7) PANTOPRAZOLE NA 40MG EC TAB TAKE ONE TABLET BY MOUTH TWICE ACTIVE DAILY BEFORE A MEAL Indication: FOR EXCESSIVE PRODUCTION OF STOMACH ACID 8) SILDENAFIL CITRATE 100MG TAB TAKE ONE TABLET BY MOUTH ONCE ACTIVE DAILY TAKE 1 HOUR PRIOR TO SEXUAL ACTIVITY Indication: FOR ERECTILE DYSFUNCTION 9) SIMVASTATIN 80MG TAB TAKE ONE-HALF TABLET BY MOUTH EVERY ACTIVE EVENING FOR CHOLESTEROL 10) TERBINAFINE HCL 1% CREAM APPLY A THIN LAYER TOPICALLY TWICE ACTIVE DAILY APPLY TO RIGHT LEG UP TO 1-4 WEEKS UNTIL RASH RESOLVES Indication: FOR RINGWORM OF THE BODY 11) VALSARTAN 160MG TAB TAKE ONE TABLET BY MOUTH ONCE DAILY ACTIVE Indication: FOR HIGH BLOOD PRESSURE Active Non-VA Medications Status 1) Non-VA ASCORBIC [...] WEEK Indication: FOR TYPE 2 DIABETES MELLITUS 20 Total Medications Allergies: ERYTHROMYCIN All medications including those prescribed by outside VA's, community providers, and all OTC meds were reviewed and reconciled with patient to the best of their abilities. This 64 year old MALE is seen today for annual CEE JOHN: 04/22/23 Chief Complaint: Denied any vision or ocular health concerns. Pt deferred dilation today Diabetic 3yrs Last A1C: 5.3 not taking any medications OHx: 1. Type 2 DM without complications OU 2. Pseudophakia OU s/p IOL dislocation OD now sutured in place 3. GARY OU - wear CPAP at night 4. H/o retinal detachment OD s/p repair 5. RE and presbyopia OU Ocular Medications: None (-) Pain: (-) ANN: (-) Diplopia: (-) Flashes: (+) Floaters: longstanding (-) Amaurosis Fugax/Tia's: (-) Eye Injury: (+) Eye Surgery: s/p PCIOL OU with dislocated IOL repair, s/p LASIK OU 10-15yrs ago, s/p retinal detachment repair OD (-) TBI FOHx: (-) Glaucoma/ARMD/Blindness VITALS (most recent, as listed in the electronic record): B/P: 143/89 (04/27/2024 09:50) Pulse: 90 (04/27/2024 09:50) Temperature: 98.1 F [36.7 C] (02/11/2024 09:45) Weight: 327 lb [148.32 kg] (02/11/2024 09:45) Height: 75 in [190.5 cm] (02/11/2024 09:45) BMI: BMI: 41.0 PERTINENT LABS: HEMOGLOBIN A1C TREND Collection DT Spec HGBA1c 02/11/2024 07:51 BLOOD 5.3 08/11/2023 08:54 BLOOD 5.0 01/23/2023 07:40 BLOOD 5.5 06/02/2022 07:57 BLOOD 6.4 H 02/03/2022 07:46 BLOOD 6.4 H (-) Smoker/Length of Time/PPD: Current Rx with last BCVA: OD: -0.75-1.25 x120 20/20-2 OS: -0.50-1.00 x150 20/20 Add:+2.50 DVA ( )sc ( x)cc - phoropter OD: 20/25-1/+1 OS: 20/20 Pupils: PERRL (-)APD; surgically induced mildly larger pupil OD>OS EOMs: SAFE OU, (-)Pain/Diplopia CVF (facial, peripheral): FTFC OU Subjective Refraction: OD: -0.25-1.00 x100 20/20- slow OS: -0.50-1.00 x150 20/20 Add:+2.50 20/20 Final SRx OD: -0.75-1.25 x120 OS: -0.50-1.00 x150 Add:+2.50 All the above performed by student, reviewed by attending Anterior segment: Performed by student, repeated by attending Lids: clear OU Conj: pinguecular temp OU Cornea: OD: 2+ glutatta and 2+ endo pigment OS: trc-1 glutatta and trc-1 endo pigment OU: LASIK scars OU (-)k spindle OU AC: D&Q OU Angles: 4x4 OU Iris: flat and clear (-)NVI (+) TID sup nasal OD Lens: PCIOL well-centered and clear OU (-)PXF OU Tonometry: Performed by student, reviewed by attending [x ] GAT [ ] iCare OD 11 mmHg OS 13 mmHg Time: 08:20 Last IOP OD: 14 OS: 15 Fundus exam: Dilated: Non dilated:xxxx Performed by student, repeated by attending Vit: clear OU C/D: OD: 0.50 OD with a white-colored surface deposit nasally to cup OS: 0.45 OS pink & healthy rim tissue OU (-)NVD OU Macula: flat and clear OU PPole: OD: trc ERM at inf [facility] with trc pigmentaty changes 1 chorioretinal scar nasally to ONH OS: Clear OU: (-) dot/blot heme (-)exudates (-)NVI A/V: 2/3 Vessels: normal caliber (-)VB OU Periph: Limited undilated view OU Assessment/Plan: 1. Type II Diabetes without evidence of retinopathy or macular edema OU to the extent of undilated exam. Last A1c 5.1 - Pt ed on today's findings and the possible ocular health and visual complications associated with diabetes as well as importance of attending follow up appts - Encouraged pt to monitor blood sugar and continue taking medications as prescribed by their PCP - Pt ed to call immediately if experiencing any sudden changes in vision - Monitor annually 2. Pseudophakia OU - PCIOLs appear well centered and stable today - Pt. ed. on findings - Monitor 3. Fuch's endothelial dystrophy OD>OS - Pt ed about findings - No [id number] indicated at this exam - Monitor 4. Dry eyes syndromes OU; asymptomatic - wear CPAP at night - Pt ed about findings - Monitor 5. H/o retinal detachment OD s/p repair - Limited undilated view today - Monitor at next CEE 6. Regular astigmatism and presbyopia OU - Pt ed about findings - Odering new frames for SVx3 - Monitor Return to Clinic 1yr or earlier PRN Total Time: 33 Minutes *This includes time spent before the visit reviewing the chart, time spent during the visit (not including procedures coded separately), and time spent after the visit on documentation, etc. Patient Education: Diabetes: Patient was educated regarding diabetes and related ocular complications including retinopathy and cataract formation as well as other related systemic complications. The importance of good blood sugar control, blood sugar testing as recommended by their PCP and the importance of timely follow up were all emphasized. Medication Reconciliation: Outpatient: Has the patient been taking medications as documented in the EMLR? YES: The patient has been taking medications as documented in the EMLR. Essential Medication List for Review used to complete this medication reconciliation. INCLUDED IN THIS LIST: Alphabetical list of active outpatient prescriptions dispensed from this [place] (local) and dispensed from another [place] or [facility] facility (remote) as well as inpatient orders (local, pending and active), local clinic medications, locally documented non-VA medications, and local prescriptions that have or been discontinued in the past 90 days. - All changes in medications, including all non-VA/Herbal/OTC medications were entered into CPRS. - If there were any medications the patient should no longer take, they were discontinued. - The patient/caregiver was instructed to update this list, discard old lists, and take this list to the next appointment, whether with a VA or non-VA provider. Medication List: JLV Link Data on this list may not be complete. Please check JLV. Allergies/ADRs (Tool #5) FACILITY ALLERGY/ADR -------- [facility] AMITRIPTYLINE [facility] ERYTHRITOL [facility] GABAPENTIN [facility] [place] [facility] ERYTHROMYCIN [facility] AMITRIPTYLINE [facility] GABAPENTIN Med. Reconciliation (Tool #1) INCLUDED IN THIS LIST: Alphabetical list of active outpatient prescriptions dispensed from this HI (local) and dispensed from another HI or [facility] facility (remote) as well as inpatient orders (local pending and active), local clinic medications, locally documented non-VA medications, and local prescriptions that have or been discontinued in the past 90 days. Non-VA Meds Last Documented On: Mar 16, 2024 NOTE The display of VA prescriptions dispensed from another HI or [facility] facility (remote) is limited to active outpatient prescription entries matched to National Drug File at the originating site and may not include some items such as investigational drugs, compounds, etc. NOT INCLUDED IN THIS LIST: Medications self-entered by the patient into personal health records (i.e. [employer]) are NOT included in this list. Non-VA medications documented outside this HI, remote inpatient orders (regardless of status) and remote clinic medications are NOT included in this list. The patient and provider must always discuss medications the patient is taking, regardless of where the medication was dispensed or obtained. Non-VA ASCORBIC ACID 500MG TAB TAKE ONE TABLET BY MOUTH ONCE DAILY Medication prescribed by Non-VA provider. with iron Non-VA ASPIRIN 325MG EC TAB TAKE ONE TABLET BY MOUTH ONCE DAILY Medication prescribed by Non-VA provider. OUTPT CARBOXYMETHYLCELLULOSE NA 0.5% OPH SOLN (Status = ) INSTILL 1 DROP INTO EACH EYE FOUR TIMES A DAY FOR DRY EYE Rx# [id number] Last Released: 04/25/23 Qty/Days Supply: Rx Expiration Date: 04/22/24 Refills Remainin Indication: FOR DRY EYE OUTPT CHLORTHALIDONE 25MG TAB (Status = Active/Suspended) TAKE ONE TABLET BY MOUTH ONCE DAILY TO REMOVE FLUID/CONTROL BLOOD PRESSURE Rx# [id number] Last Released: 03/18/24 Qty/Days Supply: Rx Expiration Date: 03/17/25 Refills Remainin Indication: FOR HIGH BLOOD PRESSURE OUTPT CLOBETASOL PROPIONATE 0.05% CREAM (Status = Active) APPLY A THIN LAYER TOPICALLY TWICE DAILY FOR ITCHING/RASH APPLY TO AFFECTED AREAS FOR 2 WEEKS, THEN NEEDED Rx# [id number] Last Released: 10/06/23 Qty/Days Supply: 6030 Rx Expiration Date: 10/01/24 Refills Remainin Indication: FOR SKIN INFLAMMATION Non-VA CLOPIDOGREL BISULFATE 75MG TAB TAKE ONE TABLET BY MOUTH ONCE DAILY Medication prescribed by Non-VA provider. Indication: TO PREVENT BLOOD CLOTS OUTPT CLOTRIMAZOLE 1% TOP SOLN (Status = Active) APPLY 1 DROP TOPICALLY ONCE DAILY FOR FUNGAL INFECTION APPLY TO NAILS WHEN DRY Rx# [id number] Last Released: 09/28/23 Qty/Days Supply: Rx Expiration Date: 09/23/24 Refills Remainin Indication: TOE NAIL FUNGUS Non-VA FERROUS SULFATE 325MG TAB TAKE ONE TABLET BY MOUTH ONCE DAILY Medication prescribed by Non-VA provider. Indication: TO SUPPLEMENT IRON Non-VA FLUOXETINE HCL 20MG CAP TAKE 1 CAPSULE BY MOUTH ONCE DAILY Medication prescribed by Non-VA provider. Non-VA GABAPENTIN 300MG CAP TAKE 1 CAPSULE BY MOUTH BEDTIME Medication prescribed by Non-VA provider. OUTPT HYDROCHLOROTHIAZIDE 25MG TAB (Status = Discontinued) TAKE ONE TABLET BY MOUTH EVERY DAY TO PREVENT FLUID/CONTROL BLOOD PRESSURE Rx# [id number] Last Released: 11/02/23 Qty/Days Supply: Rx Expiration Date: 08/11/24 Refills Remainin Non-VA METOPROLOL SUCCINATE 200MG SA TAB TAKE ONE TABLET BY MOUTH ONCE DAILY Medication prescribed by Non-VA provider. Indication: afibb OUTPT METOPROLOL SUCCINATE 50MG SA TAB (Status = Discontinued) TAKE THREE TABLETS BY MOUTH ONCE DAILY FOR BLOOD PRESSURE/HEART Rx# [id number] Last Released: 08/13/23 Qty/Days Supply: / Rx Expiration Date: 08/11/24 Refills Remainin Indication: FOR HIGH BLOOD PRESSURE OUTPT METRONIDAZOLE 0.75% TOP GEL (Status = Discontinued) APPLY SMALL AMOUNT TOPICALLY TWICE DAILY FOR ACNE ROSACEA Rx# [id number] Last Released: 10/06/23 Qty/Days Supply: Rx Expiration Date: 04/02/24 Refills Remainin Indication: FOR ACNE ROSACEA OUTPT METRONIDAZOLE 0.75% TOP GEL (Status = Active) APPLY SMALL AMOUNT TOPICALLY TWICE DAILY FOR ACNE ROSACEA Rx# [id number] Last Released: Qty/Days Supply: Rx Expiration Date: 04/28/25 Refills Remainin Indication: FOR ACNE ROSACEA OUTPT MICONAZOLE NITRATE 2% TOP PWDR (Status = Active) APPLY SMALL AMOUNT TOPICALLY TWICE DAILY NEEDED FOR FUNGAL INFECTION OF SKIN Rx# [id number] Last Released: 04/29/24 Qty/Days Supply: 8530 Rx Expiration Date: 04/28/25 Refills Remainin Indication: FOR FUNGAL INFECTION OF SKIN OUTPT MOISTURIZING (EQV-LUBRIDERM)UNSCENT LOT (Status = Active) APPLY LIBERAL AMOUNT TOPICALLY DIRECTED DRY SKIN Rx# [id number] Last Released: 04/29/24 Qty/Days Supply: 473/90 Rx Expiration Date: 04/28/25 Refills Remainin Indication: DRY SKIN OUTPT OMEPRAZOLE 20MG EC CAP (Status = Discontinued) TAKE ONE CAPSULE BY MOUTH TWICE DAILY BEFORE A MEAL FOR GASTROESOPHAGEAL REFLUX DISEASE Rx# [id number] Last Released: 10/17/23 Qty/Days Supply: 180/90 Rx Expiration Date: 08/11/24 Refills Remainin Indication: FOR GASTROESOPHAGEAL REFLUX DISEASE Non-VA OXYCODONE HCL 5MG TAB NOT SA TAKE ONE TABLET BY MOUTH EVERY 8 HOURS NEEDED Medication prescribed by Non-VA provider. via community pcp OUTPT PANTOPRAZOLE NA 40MG EC TAB (Status = Active) TAKE ONE TABLET BY MOUTH TWICE DAILY BEFORE A MEAL FOR EXCESSIVE PRODUCTION OF STOMACH ACID Rx# [id number] Last Released: 02/19/24 Qty/Days Supply: 180/90 Rx Expiration Date: 02/11/25 Refills Remainin Indication: FOR EXCESSIVE PRODUCTION OF STOMACH ACID OUTPT RIVAROXABAN 20MG TAB (Status = Discontinued) TAKE ONE TABLET BY MOUTH EVERY EVENING WITH FOOD Rx# [id number] Last Released: 10/27/23 Qty/Days Supply: Rx Expiration Date: 08/11/24 Refills Remainin Non-VA SEMAGLUTIDE 2MG/0.75ML INJ PEN 3ML INJECT 2MG SUBCUTANEOUSLY ONCE A WEEK Medication prescribed by Non-VA provider. Indication: FOR TYPE 2 DIABETES MELLITUS OUTPT SILDENAFIL CITRATE 100MG TAB (Status = Active) TAKE ONE TABLET BY MOUTH ONCE DAILY TAKE 1 HOUR PRIOR TO SEXUAL ACTIVITY Rx# [id number] Last Released: 04/25/24 Qty Supply: Rx Expiration Date: 08/11/24 Refills Remainin Indication: FOR ERECTILE DYSFUNCTION OUTPT SIMVASTATIN 80MG TAB (Status = Discontinued) TAKE ONE-HALF TABLET BY MOUTH EVERY EVENING FOR CHOLESTEROL Rx# [id number] Last Released: 01/14/24 Qty Supply: Rx Expiration Date: 04/02/24 Refills Remainin OUTPT SIMVASTATIN 80MG TAB (Status = Active) TAKE ONE-HALF TABLET BY MOUTH EVERY EVENING FOR CHOLESTEROL Rx# [id number] Last Released: 04/27/24 Qty Supply: Rx Expiration Date: 04/23/25 Refills Remainin OUTPT TERBINAFINE HCL 1% CREAM (Status = Active) APPLY A THIN LAYER TOPICALLY TWICE DAILY FOR RINGWORM OF THE BODY APPLY TO RIGHT LEG UP TO 1-4 WEEKS UNTIL RASH RESOLVES Rx# [id number] Last Released: Supply: Rx Expiration Date: 04/28/25 Refills Remainin Indication: FOR RINGWORM OF THE BODY OUTPT VALSARTAN 160MG TAB (Status = Active) TAKE ONE TABLET BY MOUTH ONCE DAILY FOR HIGH BLOOD PRESSURE Rx# [id number] Last Released: 03/21/24 Qt Supply: Rx Expiration Date: 02/11/25 Refills Remainin Indication: FOR HIGH BLOOD PRESSURE SUPPLIES PHARMACY TERMS AND POSSIBLE PATIENT ACTIONS INPT = [facility] inpatient order IV = HI intravenous medication OUTPT = [place] outpatient prescription PHARMACY POSSIBLE PATIENT TERMS EXPLANATION ACTIONS -------- - ACTIVE A prescription that can be If you have refills, filled at the local [place] pharmacy. you may request a refill of this prescription from your [facility] pharmacy. CLINIC A medication you received during If you have questions a visit to a [place] clinic or about this medication emergency department. contact your [place] healthcare team. DISCONTINUED A prescription your provider has Contact your [facility] stopped. It is no longer healthcare team if you available to be sent to you or need more of this picked up at the [facility] pharmacy medication. window. A prescription which is too old Contact your [facility] to fill. This does not refer to healthcare team if you the expiration date of the need more of this medication in the container. medication. NON-VA A medication that came from If this medication someplace other than a VA information is pharmacy. This may be a incorrect or out of prescription from either the VA date, please tell your or non VA providers that was VA healthcare team. filled outside the VA. Or, it may be an [id number] (OTC), herbal, dietary supplements or sample medication. ON HOLD An active prescription that will Contact your [facility] not be filled until pharmacy pharmacy when you need resolves the issue. more of this medication. PARKED An active prescription that will Contact your VA not be filled until the patient pharmacy when you need requests it. this medication. PENDING This prescription order has been If you have been sent to the pharmacy for review instructed to start and is not ready yet. this medication now, contact your VA pharmacy. SUSPENDED An active prescription that is Contact your [facility] not scheduled to be filled yet. pharmacy if you need You should receive it before this medication now. you run out. ==== (x) Printed Medication Reconciliation List Offered and Declined by [place] () Medication Reconciliation List Printed for at Exam () Optometry HT Please Print and Mail Copy of Medication Reconciliation List () AMSA Please Print and Mail Copy of Medication Reconciliation List /[email or web address]/ JYOTI HODGE OPTOMETRY STUDENT Signed: 05/03/2024 12:52 /daniela/ MELVA LUNA OD BANK MESSENGER Cosigned: 05/03/2024 12:56 05/03/2024 ADDENDUM STATUS: COMPLETED The optometry customer operations intern participated in this exam, I saw this in conjunction with the optometry student. The entrance tests and refraction were performed by the student and reviewed by me. I personally met with the patient, confirmed the hisory, complaints and the student's findings, and performed slit lamp and fundus evaluation as indicated. I reviewed and agree with the stated findings, assessment and plan. I have added/edited the documentation to reflect my exam findings and changes to the assessment and plan. Ed re today's findings. [place] repeated back the plan and education. All reminders completed by attending and documented in student note. /daniela/ MELVA LUNA OD BANK MESSENGER Signed: 05/03/2024 12:56 JYOTI HODGE [facility]
--- OUTSIDE RECORDS SUMMARY | 2024-05-04 02:24 | XMS_ITS | Encounter Summary ---
Author Organization [facility] Address [address] [place] [id number] Care Team Providers Care Production Technologist Name Role Phone Pcp, No Primary Care Provider Unavailabl e Encounter Details Date Type Department Care Team (Late st Contact Info) Description 06/19/2023 Scanned Document [facility] [address] [place] [address] Slick Weinstein MD [address] [place] [address] Social History Tobacco Use Types Packs/Day Years Used Date Smoking Tobacco: Never Assessed Sex and Gender Information Value Date Recorded Sex Assigned at Male 06/15/2023 10:38 AM EDT Gender Identity Male 06/15/2023 10:38 AM EDT Sexual Orientation Other 06/15/2023 10 :38 AM EDT documented as of this encounter Plan of Treatment Not on file documented as of this encounter Visit Diagnoses Not on filedocumented in this encounter Care Teams Production Technologist Relationship Specialty Start Date End Date Pcp, No PCP - General General Medicine 06/16/23 documented as of this encounter
--- OUTSIDE RECORDS SUMMARY | 2024-05-04 02:24 | XMS_ITS | Encounter Summary ---
Author Name [facility] [facility] [place] Address [address] [place] [address] Care Team Providers Care Crisis Clinician Name Role Phone JUAN OBRIEN Primary Care Provider [facility] Insurance Providers: All historical and current [...] JESSE FAMIL Y Mar 07, 2000 [id number] [phone] JAY KRISHNA PATIENT ANTHEM BCBS FEDERAL PREFERRED PROVIDER ORGANIZAT ION (PPO) STAND JESSE FAMIL Y Mar 07, 2000 105 [id number] JAY KRISHNA PATIENT ANTHEM BCBS FEDERAL PREFERRED PROVIDER ORGANIZAT ION (PPO) STAND JESSE SELF Mar 07, 2000 105 [id number] JAY KRISHNA PATIENT BCBS [place] F[place] PREFERRED PROVIDER ORGANIZAT ION (PPO) STAND JESSE FAMIL Y Mar 07, 2000 105 [id number] JAY KRISHNA PATIENT [place] PREFERRED PROVIDER ORGANIZAT ION (PPO) STAND JESSE FAMIL Y Mar 07, 2000 105 [id number] [phone] JAY KRISHNA PATIENT [place] DENTAL DENTAL INSURANCE STAND JESSE Mar 07, 2000 DENTAL [id number] JAY KRISHNA PATIENT [place] F[place] PREFERRED PROVIDER ORGANIZAT ION (PPO) STAND JESSE FAMIL Y Mar 07, 2000 105 [id number] [phone] JAY KRISHNA PATIENT [place] FEDERAL PREFERRED PROVIDER ORGANIZAT ION (PPO) STAND JESSE FAMIL Y Mar 07, 2000 105 [id number] JAY KRISHNA PATIENT [place] FEP BCBS PRESCRIPT ION CAREM ARK FEPRX PLAN Mar 07, 2000 [id number] JAY KRISHNA PATIENT [place] FEPRX PLAN PRESCRIPT ION CAREM ARK FEPRX Feb 23, 2010 [id number] JAY KRISHNA PATIENT [place] FEPRX PLAN PRESCRIPT ION CAREM ARK FEPRX Mar 07, 2000 [id number] JAY KRISHNA PATIENT [place]-F [place] BCBS PRESCRIPT ION BCBS FEP PLAN Feb 23, 2010 [id number] JAY KRISHNA PATIENT [place] EP BCBS PRESCRIPT ION BCBS FEP Feb 23, 2010 [id number] JAY KRISHNA PATIENT [place]-F EP BCBS PRESCRIPT ION FEP CAREM ARK Feb 23, 2010 [id number] JAY KRISHNA PATIENT MEDICARE ([facility]) MEDICARE () PART A May 25, 2011 PART A [id number] [facility] JAY KRISHNA PATIENT MEDICARE ([facility]) MEDICARE () PART A May 25, 2011 PART A [id number] [facility] JAY KRISHNA PATIENT MEDICARE ([facility]) MEDICARE () PART A May 25, 2011 PART A [id number] [facility] JAY KRISHNA PATIENT MEDICARE (WNR) MEDICARE (M) PART A May 25, 2011 PART A [id number] [facility] JAY KRISHNA PATIENT MEDICARE (WNR) MEDICARE (M) PART A May 25, 2011 PART A [id number] JAY KRISHNA PATIENT MEDICARE (WNR) MEDICARE (M) PART A May 25, 2011 PART A [id number] [facility] [id number] JAY KRISHNA PATIENT MEDICARE (WNR) MEDICARE (M) PART A May 25, 2011 PART A [id number] [facility] [phone] JAY KRISHNA PATIENT MEDICARE (WNR) MEDICARE (M) PART A May 25, 2011 PART A [id number] [facility] JAY KRISHNA PATIENT Selected Encounter This section includes the information on record at [place] for the Encounter. Date/Time Encounter Type Encounter Description Reason Provider Source Oct 01, 2023 11:00 AM OFFICE O/P EST MOD 30 MIN DERMATOLOGY ICD-10-CM L91.8 Other hypertrophic disorders of the skin PREET ZUNIGA [facility] Encounter Template Text not used by [place] Assessments - Encounter Diagnoses This section includes the primary and secondary diagnoses documented for the Encounter. Date/Time Primary/Secondary Diagnosis Diagnosis Name Provider Source Oct 29, 2023 12:30 PM PRIMARY Other hypertrophic disorders of the skin RPEET ZUNIGA IN [facility] [place] [facility] Oct 29, 2023 12:30 PM SECONDARY Dermatitis, unspecified PREET ZUNIGA TLIN [facility] [place] [facility] Oct 29, 2023 12:30 PM SECONDARY Nevus, non-neoplastic PREET ZUNIGA TLIN [facility] [place] [facility] Oct 29, 2023 12:30 PM SECONDARY Other rosacea PREET ZUNIGA TLIN [facility] [place] [facility] Oct 29, 2023 12:30 PM SECONDARY Other seborrheic keratosis PREET ZUNIGA IN [facility] [place] [facility] Plan of Treatment: Future Appointments (+ 6 months) and Future Tests (+/- 45 days) The Plan of Treatment section includes future care activities for the patient from all VA treatmentfacilities. This section includes future appointments and future orders which are active, pending or scheduled. Future Appointments This section includes appointments that were scheduled to occur 6 months from the date of the Encounter, up to a maximum of 20 appointments. The data comes from all [place] treatment facilities. Appointment Date/Time Appointment Type Appointme nt Facility Name Dec 25, 2023 11:30 AM AMBULATORY - MEDICINE [facility] [place] [facility] Feb 11, 2024 10:00 AM AMBULATORY - MEDICINE [facility] [place] [facility] Mar 16, 2024 10:00 AM AMBULATORY - MEDICINE [facility] [place] [facility] Mar 22, 2024 08:30 AM AMBULATORY - MEDICINE [facility] [place] [facility] Social History: Smoking Status (Most current) and Tobacco Use (All prior to encounter date) This section includes the most current, and the historical, smoking and tobacco- related health factors from the [place] facility where the Encounter took place. Current Smoking Status This section includes the most current smoking, or tobacco-related health factor, from the [place] facility where the Encounter took place. Date/Time Current Smoking Status Comment Facil it July 24, 2023 10:00 AM VA-TOBACCO QUIT 15 YRS OR MORE [facility] Tobacco Use History This section includes a history of the smoking, or tobacco-related health factors, that were collected on or before the date of the Encounter. The data comes from the [place] facility where the Encounter took place. Date/Time Smoking Status/Tobac co Use Comment Facility July 24, 2023 10:00 AM VA-TOBACCO QUIT 15 YRS OR MORE [facility] [place] [facility] July 14, 2022 03:30 PM VA-TOBACCO FORMER USER [facility] [place] [facility] July 14, 2022 03:30 PM VA-TOBACCO QUIT 15 YRS OR MORE [facility] [place] [facility] Aug 05, 2021 01:00 PM VA-TOBACCO FORMER USER [facility] [place] [facility] Aug 05, 2021 01:00 PM VA-TOBACCO QUIT 5 TO < 15 YRS [facility] [place] [facility] Sep 09, 2019 01:25 PM VA-TOBACCO FORMER USER [facility] [place] [facility] Sep 09, 2019 01:25 PM VA-TOBACCO QUIT 5 TO < 15 YRS [facility] [place] [facility] Dec 04, 2017 10:18 AM VA-TOBACCO FORMER USER [facility] [place] [facility] Dec 04, 2017 10:18 AM VA-TOBACCO QUIT 5 TO < 15 YRS [facility] [place] [facility] May 29, 2017 09:09 AM QUIT TOBACCO USE > 7 YEARS AGO [facility] [place] [facility] Apr 23, 2015 08:21 AM QUIT TOBACCO USE > 7 YEARS AGO [facility] [place] [facility] Apr 23, 2015 08:21 AM QUIT TOBACCO USE 1-7 YEARS AGO [facility] [place] [facility] Mar 06, 2011 11:06 AM QUIT TOBACCO USE 1-7 YEARS AGO [facility] [place] [facility] Apr 08, 2010 10:56 AM CURRENT SMOKER cigar once in a while [facility] [place] [facility] Apr 08, 2010 10:56 AM V1-PT DECLINES REF TO TOBACCO CESS PRGM [facility] [place] [facility] Apr 08, 2010 10:56 AM V1-PT DECLINES TOBACCO CESSATION MEDS [facility] [place] [facility] Apr 08, 2010 10:56 AM V1-PT READY TO QUIT TOBACCO USE [facility] [place] [facility] Feb 21, 2009 09:16 AM CURRENT SMOKER cigar once in a while [facility] [place] [facility] Feb 21, 2009 09:16 AM V1-PT DECLINES REF TO TOBACCO CESS PRGM [facility] [place] [facility] Feb 21, 2009 09:16 AM V1-PT DECLINES TOBACCO CESSATION MEDS [facility] [place] [facility] Feb 21, 2009 09:16 AM V1-PT THINKING ABOUT QUIT TOBACCO USE [facility] [place] [facility] Dec 16, 2007 09:15 AM QUIT TOBACCO USE 1-7 YEARS AGO [facility] [place] [facility] Apr 01, 2007 11:08 AM QUIT TOBACCO USE 1-7 YEARS AGO [facility] [place] [facility] Sep 28, 2006 08:52 AM QUIT [facility] Apr 21, 2006 10:31 AM QUIT TOBACCO USE IN PAST YEAR August 2005 [facility] Dec 16, 2005 10:02 AM CURRENT SMOKER OCCASIONAL CIGAR [facility] May 19, 2001 03:50 PM CURRENT SMOKER see below [facility] Encounter Notes: All associated encounter notes This section contains the clinical notes associated to the Encounter. Date/Time Encounter Note(s) Provider Source Oct 01, 2023 11:09 AM DERMATOLOGY OUTPATIENT NOTE: LOCAL TITLE: DERMATOLOGY CLINIC NOTE STANDARD TITLE: DERMATOLOGY OUTPATIENT NOTE DATE OF NOTE: OCT 01, 2023@11:09 ENTRY DATE: OCT 01, 2023@11:09:05 AUTHOR: CLARK ZUNIGA EXP COSIGNER: URGENCY: STATUS: COMPLETED OCT 01, 2023 JAY KRISHNA Jan 63 PATIENT PHONE - NONE FOUND Patient here for FOLLOW UP CHIEF COMPLAINT: h/o AKs, Rosacea HPI: Reviewed records from last Dermatology visit: 04/02/23; AKs s/p LN2, irritated skin tags s/p LN2, Rosacea started on topical metronidazole 0.5% gel. Started using 'Josiah' whole body deodorant approx 2 weeks ago, with onset of rash in R axilla 1 week ago - itchy. Has stopped using the 'Josiah' a few days ago to see if the rash resolves. denies any other new/changing/bleeding/non-heali ng lesions. REVIEW OF SYSTEMS: Constitutional-neg Skin/Hair/Nails-see HPI DermHx: -AKs s/p LN2 Family Hx: Denies known h/o MM PastMedHx: Reviewed. 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 Active Outpatient Medications (including Supplies): Active Outpatient Medications Status 1) CARBOXYMETHYLCELLULOSE NA 0.5% OPH SOLN INSTILL 1 ACTIVE DROP INTO EACH EYE FOUR TIMES A DAY FOR DRY EYE 2) CLOTRIMAZOLE 1% TOP SOLN APPLY 1 DROP TOPICALLY ONCE ACTIVE DAILY FOR FUNGAL INFECTION APPLY TO NAILS WHEN DRY 3) HYDROCHLOROTHIAZIDE 25MG TAB TAKE ONE TABLET BY MOUTH ACTIVE EVERY DAY TO PREVENT FLUID/CONTROL BLOOD PRESSURE 4) METOPROLOL SUCCINATE 50MG SA TAB TAKE THREE TABLETS ACTIVE BY MOUTH ONCE DAILY FOR BLOOD PRESSURE/HEART 5) METRONIDAZOLE 0.75% TOP GEL APPLY SMALL AMOUNT ACTIVE TOPICALLY TWICE DAILY FOR ACNE ROSACEA 6) OMEPRAZOLE 20MG EC CAP TAKE ONE CAPSULE BY MOUTH ACTIVE (S) TWICE DAILY BEFORE A MEAL FOR GASTROESOPHAGEAL REFLUX DISEASE 7) RIVAROXABAN 20MG TAB TAKE ONE TABLET BY MOUTH EVERY ACTIVE (S) EVENING WITH FOOD 8) SILDENAFIL CITRATE 100MG TAB TAKE ONE TABLET BY MOUTH ACTIVE ONCE DAILY TAKE 1 HOUR PRIOR TO SEXUAL ACTIVITY 9) SIMVASTATIN 80MG TAB TAKE ONE-HALF TABLET BY MOUTH ACTIVE EVERY EVENING FOR CHOLESTEROL 10) VALSARTAN 80MG TAB TAKE ONE TABLET BY MOUTH ONCE ACTIVE DAILY Active Non-VA Medications Status 1) Non-VA OXYCODONE HCL 5MG TAB NOT SA 5MG BY ACTIVE MOUTH TWICE A WEEK NEEDED 2) Non-VA SEMAGLUTIDE (OZEMPIC) PA-F INJ,SOLN ACTIVE SUBCUTANEOUSLY 12 Total Medications PHYSICAL EXAM: Cardoso Skintype II General-AxOx3, NAD, pleasant, breathing unlabored, speech clear Limited cutaneous examination, as permitted by the patient, including scalp, face, eyes, ears, neck, chest, back, abdomen, arms, hands, fingers, L leg and R upper leg Pertinent findings per below: -R below the knee amuputation with prosthetic in place -Mutiple discrete, soft, fleshy, skin-tone pedunculated papules on back and L cheek, <5mm. -Multiple scattered symmetrical evenly pigmented brown macules and papules, most under 6mm. -Multiple scattered stuck-on appearing waxy puga and brown papules and plaques with noted milia-like cysts, comedo-like openings and fissures/ridges on dermoscopy. -fine telangectasis noted on bilateral medial malar cheeks and nose [IMPROVED from prior visit] with mild rhinophyma and prominent follicular openings -R axilla with eliud erythema most notably at follicular openings, blanches Diagnosis/Plan: #Skin Tags, Irritated -The [place] was educated regarding the benign nature, but given irritation/pain, destructive treatment requested. -Liquid nitrogen cryotherapy performed as a destructive method. -Liquid nitrogen (2 cycles x 5-8sec) x #1 lesions performed (L infraorbital area), LN2 applied with cotton tipped applicator. -Side effects including but not limited to redness, crusting, swelling, blistering, hypopigmentation and scarring discussed. #Benign Appearing Nevi: -ABCDEs of melanotic lesions discussed, self examinations encouraged -No concerning lesions today on examination -A full body skin check is recommended yearly -Photoprotection discussed. #Seborrheic Keratoses: -The was educated regarding the benign nature, but to return with any growth, change or symptoms in area. #Rosacea -Improved -Discussed Dx, avoidance of triggers (such as sun exposure, hot/cold/windy weather, indoor heating, hot baths, hot beverages, heavy excerise, alcohol consumption, spicy foods, emotional stress, skincare products containing menthol, camphor or sodium lauryl sulfate, etc)., and importance of sun protection (recommended daily sunscreen use SPF 30+) and use of a wide brimmed hat. -CONTINUE topical metronidazole 0.75% gel BID with concomitant mosturizer. Avoid contact with eyes. Reviewed side effects. 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 #Dermatitis, Unspecified -Location: R axilla -DDx: irritant contact dermatitis (favor) vs tinea vs other -Likely irritant is new 'Josiah' body deodorant. Advised to discontinue. -TRIAL miconazole 2% powder BID to area for 7-10 days. For any worsening - discontinue topical antifungal and START topical clobetasol 0.05% cream BID for 2 weeks. RTC 6-12m, sooner PRN * [place] educated to RT basim if any new, changing, symptomatic lesions. * Education on sun protection and avoidance strategies was provided. * Differential diagnosis, prescription options and risks/benefits were discussed with the patient, who consented to treatment plan. * consented to photography for documentation if indicated. * A dermatoscope was used during the exam. * NUB = Neoplasm of Uncertain Behavior of Skin ------TIME ESTIMATION To include but not limied to: -Review of medical records -Time spent with patient including obtaining history, physical exam, shared decision making, procedures and counseling -Post visit documentation; HPI and physical exam findings, clinical researching, medical decision making, medication and lab ordering Total estimated time = 30 min -- Medication Reconciliation: Outpatient: Has the patient been taking medications as documented in the EMLR? YES: The patient has been taking medications as documented in the EMLR. Essential Medication List for Review used to complete this medication reconciliation. INCLUDED IN THIS LIST: Alphabetical list of active outpatient prescriptions dispensed from this [place] (local) and dispensed from another [place] or [facility] facility (remote) as well as [...] next appointment, whether with a VA or non-AR provider. JLV Link Data on this list may not be complete. Please check JLV. Allergies/ADRs (Tool #5) FACILITY ALLERGY/ADR -------- [facility] [employer] AMITRIPTYLINE [facility] ERYTHRITOL [facility]IN [facility] ERYTHROMYCIN [facility] AMITRIPTYLINE [facility] GABAPENTIN [facility] Ruth (Tool #1) INCLUDED IN THIS LIST: Alphabetical list of active outpatient prescriptions dispensed from this [place] (local) and dispensed from another [place] or [facility] facility (remote) as well as inpatient orders (local pending and active), local clinic medications, locally documented non-VA medications, and local prescriptions that have or been discontinued in the past 90 days. Non-VA Meds Last Documented On: Jan 23, 2023 NOTE The display of VA prescriptions dispensed from another [place] or [facility] facility (remote) is limited to active outpatient prescription entries matched to National Drug File at the originating site and may not include some items such as investigational drugs, compounds, etc. NOT INCLUDED IN THIS LIST: Medications self-entered by the patient into personal health records (i.e. [employer]) are NOT included in this list. Non-VA medications documented outside this [place], remote inpatient orders (regardless of status) and remote clinic medications are NOT included in this list. The patient and provider must always discuss medications the patient is taking, regardless of where the medication was dispensed or obtained. OUTPT CARBOXYMETHYLCELLULOSE NA 0.5% OPH SOLN (Status = Active) INSTILL 1 DROP INTO EACH EYE FOUR TIMES A DAY FOR DRY EYE Rx# [id number] Last Released: 04/25/23 Qty/Days Supply: Rx Expiration Date: 04/22/24 Refills Remainin Indication: FOR DRY EYE OUTPT CLOTRIMAZOLE 1% TOP SOLN (Status = Active) APPLY 1 DROP TOPICALLY ONCE DAILY FOR FUNGAL INFECTION APPLY TO NAILS WHEN DRY Rx# [id number] Last Released: 09/28/23 Qty/Days Supply: Rx Expiration Date: 09/23/24 Refills Remainin Indication: TOE NAIL FUNGUS OUTPT HYDROCHLOROTHIAZIDE 25MG TAB (Status = Discontinued) TAKE ONE TABLET BY MOUTH EVERY DAY TO PREVENT FLUID/CONTROL BLOOD PRESSURE Rx# [id number] Last Released: 04/02/23 Qty/Days Supply: Rx Expiration Date: 07/15/23 Refills Remainin OUTPT HYDROCHLOROTHIAZIDE 25MG TAB (Status = Active) TAKE ONE TABLET BY MOUTH EVERY DAY TO PREVENT FLUID/CONTROL BLOOD PRESSURE Rx# [id number] Last Released: 08/13/23 Qty/Days Supply: Rx Expiration Date: 08/11/24 Refills Remainin OUTPT KETOTIFEN 0.025% OPH SOLN (Status = ) INSTILL 1 DROP INTO EACH EYE TWICE DAILY (IF YOU WEAR CONTACT LENSES, WAIT 10 MINUTES BEFORE INSERTING LENSES) Rx# [id number] Last Released: 09/11/22 Qty/Days Supply: Rx Expiration Date: 09/11/23 Refills Remainin Indication: FOR ALLERGIC CONJUNCTIVITIS OUTPT METOPROLOL SUCCINATE 50MG SA TAB (Status = Active) TAKE THREE TABLETS BY MOUTH ONCE DAILY FOR BLOOD PRESSURE/HEART Rx# [id number] Last Released: 08/13/23 Qty/Days Supply: Rx Expiration Date: 08/11/24 Refills Remainin Indication: FOR HIGH BLOOD PRESSURE OUTPT METRONIDAZOLE 0.75% TOP GEL (Status = Active/Suspended) APPLY SMALL AMOUNT TOPICALLY TWICE DAILY FOR ACNE ROSACEA Rx# [id number] Last Released: 04/09/23 Qty/Days Supply: Rx Expiration Date: 04/02/24 Refills Remainin Indication: FOR ACNE ROSACEA OUTPT OMEPRAZOLE 20MG EC CAP (Status = Discontinued) TAKE ONE CAPSULE BY MOUTH EVERY MORNING 30 MINUTES BEFORE BREAKFAST FOR GASTROESOPHAGEAL REFLUX DISEASE Rx# [id number] Last Released: 06/15/23 Qty/Days Supply: Rx Expiration Date: 04/02/24 Refills Remainin Indication: FOR GASTROESOPHAGEAL REFLUX DISEASE OUTPT OMEPRAZOLE 20MG EC CAP (Status = Active/Suspended) TAKE ONE CAPSULE BY MOUTH TWICE DAILY BEFORE A MEAL FOR GASTROESOPHAGEAL REFLUX DISEASE Rx# [id number] Last Released: Qt Supply: Rx Expiration Date: 08/11/24 Refills Remainin Indication: FOR GASTROESOPHAGEAL REFLUX DISEASE Non-VA OXYCODONE HCL 5MG TAB NOT SA TAKE ONE TABLET BY MOUTH TWICE A WEEK NEEDED via community pcp OUTPT RIVAROXABAN 20MG TAB (Status = Discontinued) TAKE ONE TABLET BY MOUTH EVERY EVENING WITH FOOD Rx# [id number] Last Released: 08/12/23 Qty/Days Supply: Rx Expiration Date: 01/24/24 Refills Remainin OUTPT RIVAROXABAN 20MG TAB (Status = Active/Suspended) TAKE ONE TABLET BY MOUTH EVERY EVENING WITH FOOD Rx# [id number] Last Released: Supply: Rx Expiration Date: 08/11/24 Refills Remainin Non-VA SEMAGLUTIDE (OZEMPIC) PA-F INJ,SOLN INJECT SUBCUTANEOUSLY ONCE A WEEK OUTPT SILDENAFIL CITRATE 100MG TAB (Status = Discontinued) TAKE ONE TABLET BY MOUTH ONCE DAILY TAKE 1 HOUR PRIOR TO SEXUAL ACTIVITY Rx# [id number] Last Released: 08/12/23 Qty/Days Supply: 08/22 Rx Expiration Date: 04/02/24 Refills Remainin OUTPT SILDENAFIL CITRATE 100MG TAB (Status = Active) TAKE ONE TABLET BY MOUTH ONCE DAILY TAKE 1 HOUR PRIOR TO SEXUAL ACTIVITY Rx# [id number] Last Released: 09/03/23 Qty/Days Supply: Rx Expiration Date: 08/11/24 Refills Remainin Indication: FOR ERECTILE DYSFUNCTION OUTPT SIMVASTATIN 80MG TAB (Status = Active) TAKE ONE-HALF TABLET BY MOUTH EVERY EVENING FOR CHOLESTEROL Rx# [id number] Last Released: 06/15/23 Qty/Days Supply: Rx Expiration Date: 04/02/24 Refills Remainin OUTPT VALSARTAN 80MG TAB (Status = Active) TAKE ONE TABLET BY MOUTH ONCE DAILY Rx# [id number] Last Released: 01/26/23 Qty/Days Supply: Rx Expiration Date: 01/24/24 Refills Remainin SUPPLIES /daniela/ CLARK ZUNIGA DNP, ROAD TRAIN DRIVER-C NURSE PRACTITIONER Signed: 10/01/2023 12:24 [facility]
--- OUTSIDE RECORDS SUMMARY | 2024-05-04 02:24 | XMS_ITS | Encounter Summary ---
Author Name [facility] Address [address] [place] [address] Care Team Providers Care Automation Operator Name Role Phone JUAN GOMEZ Primary Care Provider Unavaileddie [facility] Insurance Providers: All historical and current [...] JESSE FAMIL Y Mar 07, 2000 105 [id number] [phone] JAY KRISHNA PATIENT ANTHEM BCBS FEDERAL PREFERRED PROVIDER ORGANIZAT ION (PPO) STAND JESSE FAMIL Y Mar 07, 2000 105 [id number] JAY KRISHNA PATIENT ANTHEM BCBS FEDERAL PREFERRED PROVIDER ORGANIZAT ION (PPO) STAND JESSE SELF Mar 07, 2000 105 [id number] JAY KRISHNA PATIENT BCBS [place] FEP PREFERRED PROVIDER ORGANIZAT ION (PPO) STAND JESSE FAMIL Y Mar 07, 2000 105 [id number] JAY KRISHNA PATIENT [place] PREFERRED PROVIDER ORGANIZAT ION (PPO) STAND JESSE FAMIL Y Mar 07, 2000 105 [id number] [phone] JAY KRISHNA PATIENT [place] F[place] DENTAL DENTAL INSURANCE STAND JESSE Mar 07, 2000 DENTAL [id number] [phone] JAY KRISHNA PATIENT [place] F[place] PREFERRED PROVIDER ORGANIZAT ION (PPO) STAND JESSE FAMIL Y Mar 07, 2000 105 [id number] JAY KRISHNA PATIENT [place] FEDERAL PREFERRED PROVIDER ORGANIZAT ION (PPO) STAND JESSE FAMIL Y Mar 07, 2000 105 [id number] [phone] JAY KRISHNA PATIENT [place] FEP BCBS PRESCRIPT ION CAREM ARK FEPRX PLAN Mar 07, 2000 [id number] JAY KRISHNA PATIENT [place] FEPRX PLAN PRESCRIPT ION CAREM ARK FEPRX Feb 23, 2010 [id number] JAY KRISHNA PATIENT [place] FEPRX PLAN PRESCRIPT ION CAREM ARK FEPRX Mar 07, 2000 [id number] JAY KRISHNA PATIENT [place]-F EP BCBS PRESCRIPT ION BCBS FEP PLAN Feb 23, 2010 [id number] JAY KRISHNA PATIENT [place]-F EP BCBS PRESCRIPT ION FEP CAREM ARK Feb 23, 2010 [id number] JAY KRISHNA PATIENT [place]-F EP BCBS PRESCRIPT ION BCBS FEP Feb 23, 2010 [id number] JAY KRISHNA PATIENT MEDICARE ([facility]) MEDICARE () PART A May 25, 2011 PART A [id number] [facility] [phone] JAY KRISHNA PATIENT MEDICARE ([facility]) MEDICARE () PART A May 25, 2011 PART A [id number] [facility] JAY KRISHNA PATIENT MEDICARE ([facility]) MEDICARE () PART A May 25, 2011 PART A [id number] [facility] JAY KRISHNA PATIENT MEDICARE (WNR) MEDICARE (M) PART A May 25, 2011 PART A [id number] [phone] JAY KRISHNA PATIENT MEDICARE (WNR) MEDICARE (M) PART A May 25, 2011 PART A [id number] [facility] JAY KRISHNA PATIENT MEDICARE (WNR) MEDICARE (M) PART A May 25, 2011 PART A [id number] [facility] [phone] JAY KRISHNA PATIENT MEDICARE (WNR) MEDICARE (M) PART A May 25, 2011 PART A [id number] JAY KRISHNA PATIENT MEDICARE (WNR) MEDICARE (M) PART A May 25, 2011 PART A [id number] [phone] JAY KRISHNA PATIENT Selected Encounter This section includes the information on record at NH for the Encounter. Date/Time Encounter Type Encounter Description Reason Provider Source May 03, 2024 09:12 AM FIT SPECTACLES MONOFOCAL OPTOMETRY ICD-10-CM Z46.0 Encounter for fit/adjst of spectacles and contact lenses MELVA LUNA Skyla Encounter Template Text not used by NH Assessments - Encounter Diagnoses This section includes the primary and secondary diagnoses documented for the Encounter. Date/Time Primary/Secondary Diagnosis Diagnosis Name Provider Source May 03, 2024 09:12 AM PRIMARY Encounter for fit/adjst of spectacles and contact lenses [facility] Plan of Treatment: Future Appointments (+ 6 months) and Future Tests (+/- 45 days) The Plan of Treatment section includes future care activities for the patient from all [place] treatmentfacilities. This section includes future appointments and future orders which are active, pending or scheduled. Future Appointments This section includes appointments that were scheduled to occur 6 months from the date of the Encounter, up to a maximum of 20 appointments. The data comes from all [place] treatment facilities. Appointment Date/Time Appointment Type Appointme nt Facility Name May 10, 2024 10:00 AM AMBULATORY - MEDICINE [facility] [place] [facility] June 29, 2024 10:30 AM AMBULATORY - MEDICINE [facility] Aug 08, 2024 09:30 AM AMBULATORY - MEDICINE [facility] Aug 09, 2024 11:00 AM AMBULATORY - MEDICINE [facility] TRN [facility] Oct 26, 2024 10:00 AM AM[facility]ULAT[facility] - [facility] Active, Pending, and Scheduled Orders This section includes a listing of several types of active, pending, and scheduled orders, including clinic medications orders, diagnostic test orders, procedure orders and consult orders; where the start date of the order is 45 days before the date of the Encounter or 45 days after the date of theEncounter. The data comes from all [place] treatment facilities. Test Date/Time Test Type Test Details Facility Name Apr 13, 2024 12:00 AM Laboratory - Chemi stry Order BASIC METABOLIC PANEL (non-fasting) BLOOD (SST-SERUM) SP [facility] Apr 25, 2024 12:55 PM Consult Order COMMUNITY CARE-DENTAL GENERAL Cons [employer]ines Salesperson's Choice [facility] Apr 27, 2024 12:00 AM Laboratory - Chemi stry Order SURGICAL PATH ORDER SURG PATH SPEC. UNKNOWN SP [facility] Apr 27, 2024 03:38 PM Consult Order SURGERY/CW M OUTPT Cons [employer] Salesperson's Choice [facility] May 03, 2024 04:19 PM Consult Order EYEGLASS R EQUEST - 4 SIGHT Cons [employer] Salesperson's Choice [facility] May 03, 2024 04:19 PM Consult Order EYEGLASS R EQUEST - 4 SIGHT Cons [employer] Salesperson's Choice [facility] May 03, 2024 04:19 PM Consult Order EYEGLASS R EQUEST - 4 SIGHT Cons Sew[employer] Machines Salesperson's Choice [facility] Social History: Smoking Status (Most current) and Tobacco Use (All prior to encounter date) This section includes the most current, and the historical, smoking and tobacco- related health factors from the NH facility where the Encounter took place. Current Smoking Status This section includes the most current smoking, or tobacco-related health factor, from the NH facility where the Encounter took place. Date/Time Current Smoking Status Comment Facil ity July 24, 2023 10:00 AM VA-TOBACCO FORMER USER [facility] [place] [facility] Tobacco Use History This section includes a history of the smoking, or tobacco-related health factors, that were collected on or before the date of the Encounter. The data comes from the [place] facility where the Encounter took place. Date/Time Smoking Status/Tobac co Use Comment Facility July 24, 2023 10:00 AM VA-TOBACCO QUIT 15 YRS OR MORE [facility] [place] [facility] July 14, 2022 03:30 PM VA-TOBACCO FORMER USER [facility] [place] July 14, 2022 03:30 PM VA-TOBACCO QUIT 15 YRS OR MORE [facility] [place] [facility] Aug 05, 2021 01:00 PM VA-TOBACCO FORMER USER [facility] [place] [facility] Aug 05, 2021 01:00 PM VA-TOBACCO QUIT 5 TO < 15 YRS [facility] [place] [facility] Sep 09, 2019 01:25 PM VA-TOBACCO FORMER USER [facility] [place] [facility] Sep 09, 2019 01:25 PM VA-TOBACCO QUIT 5 TO < 15 YRS [facility] [place] [facility] Dec 04, 2017 10:18 AM VA-TOBACCO FORMER USER [facility] [place] Dec 04, 2017 10:18 AM VA-TOBACCO QUIT 5 TO < 15 YRS [facility] [place] [facility] May 29, 2017 09:09 AM QUIT TOBACCO USE > 7 YEARS AGO [facility] [place] [facility] Apr 23, 2015 08:21 AM QUIT TOBACCO USE > 7 YEARS AGO [facility] [place] [facility] Apr 23, 2015 08:21 AM QUIT TOBACCO USE 1-7 YEARS AGO [facility] [place] [facility] Mar 06, 2011 11:06 AM QUIT TOBACCO USE 1-7 YEARS AGO [facility] [place] [facility] Apr 08, 2010 10:56 AM CURRENT SMOKER cigar once in a while [facility] Apr 08, 2010 10:56 AM V1-PT DECLINES REF TO TOBACCO CESS PRGM [facility] [place] [facility] Apr 08, 2010 10:56 AM V1-PT DECLINES TOBACCO CESSATION MEDS [facility] Apr 08, 2010 10:56 AM V1-PT READY TO QUIT TOBACCO USE [facility] Feb 21, 2009 09:16 AM CURRENT SMOKER cigar once in a while [facility] Feb 21, 2009 09:16 AM V1-PT DECLINES REF TO TOBACCO CESS PRGM [facility] Feb 21, 2009 09:16 AM V1-PT DECLINES TOBACCO CESSATION MEDS [facility] Feb 21, 2009 09:16 AM V1-PT THINKING ABOUT QUIT TOBACCO USE [facility] Dec 16, 2007 09:15 AM QUIT TOBACCO USE 1-7 YEARS AGO [facility] Apr 01, 2007 11:08 AM QUIT TOBACCO USE 1-7 YEARS AGO [facility] Sep 28, 2006 08:52 AM QUIT TOBACCO USE IN PAST YEAR [facility] Apr 21, 2006 10:31 AM QUIT TOBACCO USE IN PAST YEAR August 2005 [facility] Dec 16, 2005 10:02 AM CURRENT SMOKER OCCASIONAL CIGAR [facility] May 19, 2001 03:50 PM CURRENT SMOKER see below [facility] Pathology Reports: +/- 30 days of [...] the Encounter. The data comes from all [facility] facilities. Date/Time Pathology Report Provider Source May 02, 2024 10:07 AM LR SURGICAL PATHOLOGY REPORT: LOCAL TITLE: LR SURGICAL PATHOLOGY REPORT STANDARD TITLE: PATHOLOGY REPORT DATE OF NOTE: MAY 02, 2024@10:07:13 ENTRY DATE: MAY 02, 2024@10:07:13 AUTHOR: RADHA MARTINEZ MD EXP COSIGNER: URGENCY: STATUS: COMPLETED $APHDR Reporting Lab: [facility] [CLIA# [id number]] [address] [place] [id number] - - - - - - - [...] (Received Apr 28, 2024): A:LEFT UPPER BACK SKIN([id number]) B:RIGHT UPPER BACK SKIN([id number]) - - - - - - - [...] - - - PATHOLOGY REPORT Accession No. [facility] 25 1510 - - - - - - - - - - - - - - - - - - - - - - - - - - - - - - - - - - - - - - - - GROSS DESCRIPTION: The specimen is recieved from [facility], [facility] 1510;A;1;KRISHNA,Luis A. Received in formalin labeled with the patient's name, social security number, and left upper back is an unoriented, puga-borja skin shave measuring 0.6 x 0.4 x [...] and right upper back is an unoriented, puga-borja skin shave measuring 0.5 x 0.5 x [...] Performing Laboratory: Surgical Pathology Report Performed By: [facility] [CLIA# [id number]] [address] [place] [phone] $FTR - - - - - - [...] - - JAY KRISHNA STANDARD FORM 515 ID:[id number] SEX:M :1960 AGE: 64 LOC:*[facility] PCP: /daniela/ Radha Martinez MD, FRCPath Board Certified Dermatopathologist Signed: 05/02/2024 10:07 RADHA MARTINEZ MD [facility] May 02, 2024 10:04 AM LR SURGICAL PATHOLOGY REPORT: LOCAL TITLE: LR SURGICAL PATHOLOGY REPORT STANDARD TITLE: PATHOLOGY DIAGNOSTIC STUDY REPORT DATE OF NOTE: MAY 02, 2024@10:04:16 ENTRY DATE: MAY 02, 2024@10:04:16 AUTHOR: RADHA MARTINEZ MD EXP COSIGNER: URGENCY: STATUS: COMPLETED $APHDR Reporting [facility]: [facility] [CLIA# [id number]] [address] [place] [id number] - - - - - - - [...] - - - - $TEXT Submitted by: CLAKR ZUNIGA Date obtained: Apr 27, 2024 12:23 [...] - - - PATHOLOGY REPORT Accession No. [facility] - - - - - - - - - - - - - - - - - - - - - - - - - - - - - - - - - - - - - - - - Gross description: The specimen is recieved from [facility] jane, [facility] 8370;A;1;Luis KRISHNA. Received in formalin labeled with the patient's name, social security number, and left upper back is an unoriented, puga-borja skin shave measuring 0.6 x 0.4 x [...] and right upper back is an unoriented, puga-borja skin shave measuring 0.5 x 0.5 x 0.1 cm. There is a well-circumscribed, puga to dark brown, macular lesion measuring 0.3 x 0.3 cm located 0.1 cm from the margin. Inked black. The specimen is entirely submitted with tips in cassette B1 and body cross section in cassette B2. GIA Pacheco ([facility]) 04/28/2024 A. Skin, left upper [...] for further evaluation and treatment. CPT codes 04604g5 /daniela/ RADHA MARTINEZ MD Board Certified Dermatopathologist Signed May 02, 2024@10:04 Performing Laboratory: Surgical Pathology Report Performed By: [facility] [CLIA# [id number]] [address] [place] [id number] $FTR - - - - - - [...] - - JAY KRISHNA STANDARD FORM 515 ID:[id number] SEX:M :1960 AGE: 64 LOC:[facility] DERMATOLOGY DEVELOPMENT REP 1 PM PCP: Juan Gomez NP /daniela/ RADHA MARTINEZ MD Board Certified Dermatopathologist Signed: 05/02/2024 10:04 RADAH MARTINEZ MD [facility] Encounter Notes: All associated encounter notes This section contains the clinical notes associated to the Encounter. Date/Time Encounter Note(s) Provider Source May 03, 2024 09:12 AM OPTOMETRY NOTE: LOCAL TITLE: OPTOMETRY NOTE STANDARD TITLE: OPTOMETRY NOTE DATE OF NOTE: MAY 03, 2024@09:12 ENTRY DATE: MAY 03, 2024@09:12:29 AUTHOR: JUAN WILKERSON COSIGNER: URGENCY: STATUS: COMPLETED OPTOMETRY NOTE Has ADDENDA The quote provided below is for informational purposes only. Please verify prior to the creation of a purchase order. JAY KRISHNA 0633 RX INFORMATION OD +1.75 -1.25 X120 Add:0.00 Pzm:0.00 Dir: Prz2:0.00 Dir2: OS +2.00 -1.00 X150 Add:0.00 Pzm:0.00 Dir: Prz2:0.00 Dir2: FITTING INFORMATION FPD: NPD: [place]:R:33 L:33.5 SEG HT:R: L: Tint:None Shade:None [place] Billable Items FRAME: JAZZ GUNMETAL [id number] Right Lens: PLASTIC SINGLE VISION CLEAR 1.498 PLASTIC CR39 Left Lens: PLASTIC SINGLE VISION CLEAR 1.498 PLASTIC CR39 [facility] ANTI-REFLECTIVE COATING CLIN items [employer] - AR Coating 0001 - Single Vision - Glass Plastic Poly -- The quote provided below is for informational purposes only. Please verify prior to the creation of a purchase order. JAY KRISHNA 0633 RX INFORMATION OD -0.75 -1.25 X120 Add:0.00 Pzm:0.00 Dir: Prz2:0.00 Dir2: OS -0.50 -1.00 X150 Add:0.00 Pzm:0.00 Dir: Prz2:0.00 Dir2: FITTING INFORMATION FPD: NPD: [place]:R:36 L:37.5 SEG HT:R: L: Tint:BORJA Shade:3 VA Billable Items FRAME: FX27 GUNMETAL [id number] Right Lens: PLASTIC SINGLE VISION CLEAR 1.498 PLASTIC CR39 Left Lens: PLASTIC SINGLE VISION CLEAR 1.498 PLASTIC CR39 ULTRA ALBERTINA PROTECTION KLEAR ANTI-REFLECTIVE COATING SOLID TINT CLIN items [employer] - AR Coating 0001 - Single Vision - Glass Plastic Poly -- The quote provided below is for informational purposes only. Please verify prior to the creation of a purchase order. JAY KRISHNA 0633 RX INFORMATION OD -0.75 -1.25 X120 Add:0.00 Pzm:0.00 Dir: Prz2:0.00 Dir2: OS -0.50 -1.00 X150 Add:0.00 Pzm:0.00 Dir: Prz2:0.00 Dir2: FITTING INFORMATION FPD: NPD: [place]:R:36 L:37.5 SEG HT:R: L: Tint:None Shade:None VA Billable Items FRAME: SALeonor MARQUEZ [id number] Right Lens: PLASTIC SINGLE VISION CLEAR 1.498 PLASTIC CR39 Left Lens: PLASTIC SINGLE VISION CLEAR 1.498 PLASTIC CR39 KLEAR ANTI-REFLECTIVE COATING CLIN items [employer] - AR Coating [employer] - [employer] Frame 0001 - Single Vision - Glass Plastic Poly /daniela/ JUAN WILKERSON VACATION PLANNER Signed: 05/03/2024 09:13 Receipt Acknowledged By: 05/03/2024 16:14 /juliane NIÑO OPTOMETRY TECH 05/03/2024 ADDENDUM STATUS: COMPLETED PDS Member Of Technical Staff fit patient with 3 pair(s) of SV eyeglasses on 05/03/2024 as directed by provider. [facility] entered consult(s) for order on behalf of provider. /juliane NIÑO OPTOMETRY TECH Signed: 05/03/2024 16:18 JUAN WILKERSON CN[facility] W[facility]
--- OUTSIDE RECORDS SUMMARY | 2024-05-04 02:24 | XMS_ITS | Encounter Summary ---
Author Name [facility] Organization [facility] Address [address] [place] [address] Care Team Providers Care Cross Cut Sawyer Name Role Phone JOHNY GOMEZ Primary Care Provider Unavaila ble Insurance [...] JESSE FAMIL Y Mar 07, 2000 [id number] [phone] JAY KRISHNA PATIENT ANTHEM BCBS FEDERAL PREFERRED PROVIDER ORGANIZAT ION (PPO) STAND JESSE FAMIL Y Mar 07, 2000 105 [id number] JAY KRISHNA PATIENT ANTHEM BCBS FEDERAL PREFERRED PROVIDER ORGANIZAT ION (PPO) STAND JESSE SELF Mar 07, 2000 105 [id number] JAY KRISHNA PATIENT [place]BS [place] F[place] PREFERRED PROVIDER ORGANIZAT ION (PPO) STAND JESSE FAMIL Y Mar 07, 2000 105 [id number] JAY KRISHNA PATIENT [place] PREFERRED PROVIDER ORGANIZAT ION (PPO) STAND JESSE FAMIL Y Mar 07, 2000 105 [id number] [phone] JAY KRISHNA PATIENT [place] DENTAL DENTAL INSURANCE STAND JESSE Mar 07, 2000 DENTAL [id number] JAY KRISHNA PATIENT [place] PREFERRED PROVIDER ORGANIZAT ION (PPO) STAND JESSE FAMIL Y Mar 07, 2000 105 [id number] JAY KRISHNA PATIENT [place] FEDERAL PREFERRED PROVIDER ORGANIZAT ION (PPO) STAND JESSE FAMIL Y Mar 07, 2000 105 [id number] 15 JAY KRISHNA PATIENT [place] FEP BCBS PRESCRIPT ION CAREM ARK FEPRX PLAN Mar 07, 2000 [id number] JAY KRISHNA PATIENT [place] FEPRX PLAN PRESCRIPT ION CAREM ARK FEPRX Feb 23, 2010 [id number] JAY KRISHNA PATIENT [place] FEPRX PLAN PRESCRIPT ION CAREM ARK FEPRX Mar 07, 2000 [id number] JAY KRISHNA PATIENT [place]-F EP BCBS PRESCRIPT ION BCBS FEP Feb 23, 2010 [id number] JAY KRISHNA PATIENT [place]-F EP BCBS PRESCRIPT ION FEP CAREM ARK Feb 23, 2010 [id number] JAY KRISHNA PATIENT [place]-F EP BCBS PRESCRIPT ION BCBS FEP PLAN Feb 23, 2010 [id number] JAY KRISHNA PATIENT MEDICARE ([facility]) MEDICARE () PART A May 25, 2011 PART A [id number] [facility] JAY KRISHNA PATIENT MEDICARE ([facility]) MEDICARE () PART A May 25, 2011 PART A [id number] JAY KRISHNA PATIENT MEDICARE ([facility]) MEDICARE () PART A May 25, 2011 PART A [id number] [facility] JAY KRISHNA PATIENT MEDICARE (WNR) MEDICARE (M) PART A May 25, 2011 PART A [id number] JAY KRISHNA PATIENT MEDICARE (WNR) MEDICARE (M) PART A May 25, 2011 PART A [id number] JAY KRISHNA PATIENT MEDICARE (WNR) MEDICARE (M) PART A May 25, 2011 PART A [id number] JAY KRISHNA PATIENT MEDICARE (WNR) MEDICARE (M) PART A May 25, 2011 PART A [id number] JAY KRISHNA PATIENT MEDICARE (WNR) MEDICARE (M) PART A May 25, 2011 PART A [id number] JAY KRISHNA PATIENT Selected Encounter This section includes the information on record at [place] for the Encounter. Date/Time Encounter Type Encounter Description Reason Provider Source May 02, 2024 10:04 AM Outpatient Encounter EVENT (HISTORICAL) RADHA MARTINEZ MD [facility] Encounter Template Text not used by [place] Plan of Treatment: Future Appointments (+ 6 months) and Future Tests (+/- 45 days) The Plan of Treatment section includes future care activities for the patient [facility] This section includes future appointments and future orders which are active, pending or scheduled. Future Appointments This section includes appointments that were scheduled to occur 6 months from the date of the Encounter, up to a maximum of 20 appointments. The data comes from all [place] treatment facilities. Appointment Date/Time Appointment Type Appointme nt Facility Name May 03, 2024 08:00 AM AMBULATORY - MEDICINE [facility] May 10, 2024 10:00 AM AMBULATORY - MEDICINE [facility] [place] [facility] June 29, 2024 10:30 AM AMBULATORY - MEDICINE [facility] [place] [facility] Aug 08, 2024 09:30 AM AMBULATORY - MEDICINE [facility] [place] Aug 09, 2024 11:00 AM AMBULATORY - MEDICINE [facility] [place] Oct 26, 2024 10:00 AM AMBULATORY - MEDICINE [facility] [place] Active, Pending, and Scheduled Orders This section includes a listing of several types of active, pending, and scheduled orders, including clinic medications orders, diagnostic test orders, procedure orders and consult orders; where the start date of the order is 45 days before the date of the Encounter or 45 days after the date of theEncounter. The data comes from all [place] treatment facilities. Test Date/Time Test Type Test Details Facility Name Apr 13, 2024 12:00 AM Laboratory - Chemi stry Order BASIC METABOLIC PANEL (non-fasting) BLOOD (SST-SERUM) SP [facility] Apr 25, 2024 12:55 PM Consult Order COMMUNITY CARE-DENTAL GENERAL Cons Diesel Motor Mechanic's Choice [facility] Apr 27, 2024 12:00 AM Laboratory - Chemi stry Order SURGICAL PATH ORDER SURG PATH SPEC. UNKNOWN SP [facility] Apr 27, 2024 03:38 PM Consult Order SURGERY/CW M OUTPT Cons Diesel Motor Mechanic's Choice [facility] May 03, 2024 04:19 PM Consult Order EYEGLASS R EQUEST - 4 SIGHT Cons Diesel Motor Mechanic's Choice [facility] May 03, 2024 04:19 PM Consult Order EYEGLASS R EQUEST - 4 SIGHT Cons Diesel Motor Mechanic's Choice [facility] May 03, 2024 04:19 PM Consult Order EYEGLASS R EQUEST - 4 SIGHT Cons Diesel Motor Mechanic's Choice [facility] Social History: Smoking Status (Most current) and Tobacco Use (All prior to encounter date) This section includes the most current, and the historical, smoking and tobacco- related health factors from the [place] facility where the Encounter took place. Current Smoking Status This section includes the most current smoking, or tobacco-related health factor, from the [place] facility where the Encounter took place. Date/Time Current Smoking Status Comment [facility] July 24, 2023 10:00 AM VA-TOBACCO FORMER USER [facility] Tobacco Use History This section includes a history of the smoking, or tobacco-related health factors, that were collected on or before the date of the Encounter. The data comes from the [place] facility where the Encounter took place. Date/Time Smoking Status/Tobac co Use Comment Facility July 24, 2023 10:00 AM VA-TOBACCO QUIT 15 YRS OR MORE [facility] July 14, 2022 03:30 PM VA-TOBACCO FORMER USER [facility] [place] July 14, 2022 03:30 PM VA-TOBACCO QUIT 15 YRS OR MORE [facility] [place] Aug 05, 2021 01:00 PM VA-TOBACCO FORMER USER [facility] [place] Aug 05, 2021 01:00 PM VA-TOBACCO QUIT 5 TO < 15 YRS [facility] [place] [facility] Sep 09, 2019 01:25 PM VA-TOBACCO FORMER USER [facility] [place] [facility] Sep 09, 2019 01:25 PM VA-TOBACCO QUIT 5 TO < 15 YRS [facility] [place] [facility] Dec 04, 2017 10:18 AM VA-TOBACCO FORMER USER [facility] [place] [facility] Dec 04, 2017 10:18 AM VA-TOBACCO QUIT 5 TO < 15 YRS [facility] [place] [facility] May 29, 2017 09:09 AM QUIT TOBACCO USE > 7 YEARS AGO [facility] [place] [facility] Apr 23, 2015 08:21 AM QUIT TOBACCO USE > 7 YEARS AGO [facility] [place] Apr 23, 2015 08:21 AM QUIT TOBACCO USE 1-7 YEARS AGO [facility] [place] [facility] Mar 06, 2011 11:06 AM QUIT TOBACCO USE 1-7 YEARS AGO [facility] [place] [facility] Apr 08, 2010 10:56 AM CURRENT SMOKER cigar once in a while [facility] [place] [facility] Apr 08, 2010 10:56 AM V1-PT DECLINES REF TO TOBACCO CESS PRGM [facility] [place] [facility] Apr 08, 2010 10:56 AM V1-PT DECLINES TOBACCO CESSATION MEDS [facility] [place] [facility] Apr 08, 2010 10:56 AM V1-PT READY TO QUIT TOBACCO USE [facility] [place] [facility] Feb 21, 2009 09:16 AM CURRENT SMOKER cigar once in a while [facility] Feb 21, 2009 09:16 AM V1-PT DECLINES REF TO TOBACCO CESS PRGM [facility] Feb 21, 2009 09:16 AM V1-PT DECLINES TOBACCO CESSATION MEDS [facility] Feb 21, 2009 09:16 AM V1-PT THINKING ABOUT QUIT TOBACCO USE [facility] Dec 16, 2007 09:15 AM QUIT TOBACCO USE 1-7 YEARS AGO [facility] Apr 01, 2007 11:08 AM QUIT TOBACCO USE 1-7 YEARS AGO [facility] Sep 28, 2006 08:52 AM QUIT TOBACCO USE IN PAST YEAR [facility] Apr 21, 2006 10:31 AM QUIT TOBACCO USE IN PAST YEAR August 2005 [facility] Dec 16, 2005 10:02 AM CURRENT SMOKER OCCASIONAL CIGAR [facility] May 19, 2001 03:50 PM CURRENT SMOKER see below [facility] Pathology Reports: +/- 30 days of [...] the Encounter. The data comes from all [facility]. Date/Time Pathology Report Provider Source May 02, 2024 10:07 AM LR SURGICAL PATHOLOGY REPORT: LOCAL TITLE: LR SURGICAL PATHOLOGY REPORT STANDARD TITLE: PATHOLOGY REPORT DATE OF NOTE: MAY 02, 2024@10:07:13 ENTRY DATE: MAY 02, 2024@10:07:13 AUTHOR: RADHA MARTINEZ MD EXP COSIGNER: URGENCY: STATUS: COMPLETED $APHDR Reporting Lab: [facility] [CLIA# [id number]] [address] [place] [address] - - - - - - - [...] (Received Apr 28, 2024): A:LEFT UPPER BACK SKIN([id number]) B:RIGHT UPPER BACK SKIN([id number]) - - - - - - - [...] - - - PATHOLOGY REPORT Accession No. [facility] 25 1510 - - - - - - - - - - - - - - - - - - - - - - - - - - - - - - - - - - - - - - - - GROSS DESCRIPTION: The specimen is recieved from [facility], [facility] 1510;A;1;KRISHNA,B A. Received in formalin labeled with [...] Pacheco (ASCP) 04/28/2024 /daniela/ Radha Martinez MD, CHAath Board Certified Dermatopathologist Signed May 02, 2024@10:07 Performing Laboratory: Surgical Pathology Report Performed By: [facility] [CLIA# [id number]] [address] [place] [phone] $FTR - - - - - - [...] - - JAY KRISHNA STANDARD FORM 515 ID:[id number] SEX:M :1960 AGE: 64 LOC:*[facility] PCP: /daniela/ Radha Martinez MD, FRCPath Board Certified Dermatopathologist Signed: 05/02/2024 10:07 RADHA MARTINEZ MD [facility] May 02, 2024 10:04 AM LR SURGICAL PATHOLOGY REPORT: LOCAL TITLE: LR SURGICAL PATHOLOGY REPORT STANDARD TITLE: PATHOLOGY DIAGNOSTIC STUDY REPORT DATE OF NOTE: MAY 02, 2024@10:04:16 ENTRY DATE: MAY 02, 2024@10:04:16 AUTHOR: RADHA MARTINEZ MD EXP COSIGNER: URGENCY: STATUS: COMPLETED $APHDR Reporting Lab: [facility] [CLIA# [id number]] [address] [place] [phone] - - - - - - - [...] - - - PATHOLOGY REPORT Accession No. [facility] 82 - - - - - - [...] - - - PATHOLOGY REPORT Accession No. [facility] - - - - - - - - - - - - - - - - - - - - - - - - - - - - - - - - - - - - - - - - Gross description: The specimen is recieved from [facility], [facility] 1510;A;1;KRISHNA,Luis A. Received in formalin labeled [...] cross section in cassette B2. GIA Pacheco ([facility]) 04/28/2024 A. Skin, left upper back: Lentiginous [...] for further evaluation and treatment. 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 Date/Time Encounter Note(s) Provider Source May 02, 2024 10:04 AM PATHOLOGY DIAGNOSTIC STUDY REPORT: LOCAL TITLE: LR SURGICAL PATHOLOGY REPORT STANDARD TITLE: PATHOLOGY DIAGNOSTIC STUDY REPORT DATE OF NOTE: MAY 02, 2024@10:04:16 ENTRY DATE: MAY 02, 2024@10:04:16 AUTHOR: RADHA MARTINEZ MD EXP COSIGNER: URGENCY: STATUS: COMPLETED $APHDR Reporting Lab: [facility] [CLIA# [id number]] [address] [place] [phone] - - - - - - - [...] - - PATHOLOGY REPORT Accession No. [facility] 82 - - - - - - [...] - - - PATHOLOGY REPORT Accession No. [facility] - - - - - - - - - - - - - - - - - - - - - - - - - - - - - - - - - - - - - - - - Gross description: The specimen is recieved from [facility], [facility] 1510;A;1;Luis KRISHNA A. Received in formalin labeled with [...] cross section in cassette B2. GIA Pacheco ([facility]) 04/28/2024 A. Skin, left upper back: Lentiginous [...] for further evaluation and treatment. CPT codes 83902b9 /daniela/ RADHA MARTINEZ MD Board Certified Dermatopathologist Signed May 02, 2024@10:04 Performing Laboratory: Surgical Pathology Report Performed By: [facility] [CLIA# [id number]] [address] [place] [phone] $FTR - - - - - - [...] - - JAY KRISHNA STANDARD FORM 515 ID:[id number] SEX:M :1960 AGE: 64 LOC:[facility] DERMATOLOGY LITHOGRAPHIC GENERAL WORKER 1 PM PCP: Johny Gomez NP /daniela/ RADHA MARTINEZ MD Board Certified Dermatopathologist Signed: 05/02/2024 10:04 RADHA MARTINEZ MD [facility]
--- OUTSIDE RECORDS SUMMARY | 2024-05-04 02:24 | XMS_ITS | Continuity of Care Document ---
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 It does not include entries that were removed or entered in error. Problem Status Onset Date Problem Type Date of Resolution Comments Source Atrial fibrillation Active Condition [facility] Atrial fibrillation (SNOMED CT 23001722) Active Condition [facility] Benign essential hypertension (SNOMED CT 9893329) Active Condition [facility] Chronic Low Back Pain (ICD-9-CM 724.2) Active Condition [facility] Diabetes mellitus (SNOMED CT 60844571) Active Condition [facility] Diabetic foot ulcer Active Condition [facility] Family History of Ischemic Heart Disease (ICD-9-CM V17.3) Active Condition [facility] History of amputation of leg above ankle Active Condition May 29, 2017 Entered By: JASPAL WHEATLEY Comment: 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 [facility] History of cholecystectomy Active Condition Dec 08, 2015 Entered By: JASPAL WHEATLEY Comment: 2015 [facility] Hyperlipidemia Active Condition June 232009 Entered By: SHERRILL MYERS Comment: and metabolic syndrome [facility] Long-term current use of anticoagulant Active Condition [facility] Obesity (SNOMED CT 157675107) Active Condition [facility] Obstructive sleep apnea syndrome Active Condition Dec 08, 2015 Entered By: JASPAL WHEATLEY Comment: compliant w cpapMay 29, 2017 Entered By: JASPAL WHEATLEY Comment: 06/10- no longer using cpap as he feels sxs have resolved w wt loss [facility] Opiate Dependence * Active Condition Jan 14, 2013 Entered By: SHERRILL MYERS Comment: DO NOT PRESCRIBE NARCOTICS- he gets elsewhere [facility] Peripheral Neuropathy (ICD-9-CM 355.9) Active Condition [facility] Polyp of colon Active Condition Sep 2023 Entered By: LUIS OBRIEN Comment: c scope 10/28/2023 repeat 5 years, Oct 2028 [facility] Primary erectile dysfunction Active Condition [facility] status post knee replacement Active Condition Oct 13, 2012 Entered By: SHERRILL MYERS Comment: R TKR fall 2011 [facility] Diagnosis: ICD-10-CM Z46.0 Encounter for fit/adjst of spectacles and contact lenses Active Diagnosis [facility] Diagnosis: ICD-10-CM E11.9 Type 2 diabetes mellitus without complications Active Diagnosis [facility] Diagnosis: ICD-10-CM L57.0 Actinic keratosis Active Diagnosis [facility] Diagnosis: ICD-10-CM I10 Essential (primary) hypertension Active Diagnosis [facility] Diagnosis: ICD-10-CM 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 Active Diagnosis [facility] Diagnosis: ICD-10-CM Z04.89 Encounter for examination and observation for oth reasons Active Diagnosis [facility] Diagnosis: ICD-10-CM K63.5 Polyp of colon Active Diagnosis [facility] Diagnosis: ICD-10-CM E11.42 Type 2 diabetes mellitus with diabetic polyneuropathy Active Diagnosis [facility] Diagnosis: ICD-10-CM L91.8 Other hypertrophic disorders of the skin Active Diagnosis [facility] Diagnosis: ICD-10-CM S88.112S Complete traum amp at lev betw kn and ankl, l low leg, sqla Active Diagnosis [facility] Diagnosis: ICD-10-CM I48.21 Permanent atrial fibrillation Active Diagnosis [facility] [facility] Diagnosis: ICD-10-CM R11.0 Nausea Active Diagnosis [facility] Medications Combined list of outpatient medications from Department of Defense and Veterans Affairs facilities.Medications provided include 1) outpatient medications from the last 15 months, and 2) patient-reported medications. Medication Details Route Status Patient Instructions Prescription Expires Prescription Number Last Dispense Date Ordering Provider Order Date Order Qty Source ASCORBIC ACID 500MG TAB TAKE ONE TABLET BY MOUTH ONCE DAILY ORAL ACTIVE YECENIA SNYDERD I A 2024 [facility] ASPIRIN 325MG TAB,EC TAKE ONE TABLET BY MOUTH ONCE DAILY ORAL ACTIVE GDULAYECENIAD I A 2024 [facility] CARBOXYMETH YLCELLULOSE NA 0.5% SOLN,OPH INSTILL 1 DROP INTO EACH EYE FOUR TIMES A DAY FOR DRY EYE OPHTHA LMIC 04/22/2024 [id number] LUNA,LAC EY J 2023 45 [facility] CHLORTHALID ONE 25MG TAB TAKE ONE TABLET BY MOUTH ONCE DAILY TO REMOVE FLUID/CO NTROL BLOOD PRESSURE ORAL SUSPEND ED 03/17/2025 [id number] YECENIA SNYDERD I A 2024 90 [facility] CLOBETASOL PROPIONATE 0.05% CREAM,TOP APPLY A THIN LAYER TOPICALL Y TWICE DAILY FOR ITCHING/ RASH APPLY TO AFFECTED AREAS FOR 2 WEEKS, THEN NEEDED TOPICA L ACTIVE 10/01/2024 [id number] 4 CLARK ZUNIGA 2023 60 [facility] CLOPIDOGREL BISULFATE 75MG TAB TAKE ONE TABLET BY MOUTH ONCE DAILY ORAL ACTIVE GDULAJOD I A 2024 [facility] CLOTRIMAZOL E 1% SOLN,TOP APPLY 1 DROP TOPICALL Y ONCE DAILY FOR FUNGAL INFECTIO N APPLY TO NAILS WHEN DRY TOPICA L ACTIVE 09/23/2024 [id number] RAYMOND POWELL 2023 30 [facility] FERROUS SO4 325MG TAB TAKE ONE TABLET BY MOUTH ONCE DAILY ORAL ACTIVE GDULA,JOD I A 2024 [facility] FLUOXETINE HCL 20MG CAP TAKE 1 CAPSULE BY MOUTH ONCE DAILY ORAL ACTIVE GDULA,JOD I A 2024 [facility] GABAPENTIN 300MG CAP TAKE 1 CAPSULE BY MOUTH BEDTIME ORAL ACTIVE GDULA,JOD I A 2024 [facility] HYDROCHLORO THIAZIDE 25MG TAB TAKE ONE TABLET BY MOUTH EVERY DAY TO PREVENT FLUID/CO NTROL BLOOD PRESSURE ORAL DISCONT INUED BY PROVIDE R 08/11/2024 [id number] JUAN OBRIEN 2023 90 [facility] HYDROCHLORO THIAZIDE 25MG TAB TAKE ONE TABLET BY MOUTH EVERY DAY TO PREVENT FLUID/CO NTROL BLOOD PRESSURE ORAL DISCONT INUED 07/15/2023 [id number] JUAN OBRIEN 2022 90 [facility] METOPROLOL SUCCINATE 200MG TAB,SA TAKE ONE TABLET BY MOUTH ONCE DAILY ORAL ACTIVE GDULA,JOD I A 2024 [facility] METOPROLOL SUCCINATE 50MG TAB,SA TAKE THREE TABLETS BY MOUTH ONCE DAILY FOR BLOOD PRESSURE /HEART ORAL DISCONT INUED BY PROVIDE R 08/11/2024 [id number] JUAN OBRIEN 2023 270 [facility] METRONIDAZO LE 0.75% GEL,TOP APPLY SMALL AMOUNT TOPICALL Y TWICE DAILY FOR ACNE ROSACEA TOPICA L ACTIVE 04/28/2025 [id number] CLARK ZUNIGA 2024 90 [facility] METRONIDAZO LE 0.75% GEL,TOP APPLY SMALL AMOUNT TOPICALL Y TWICE DAILY FOR ACNE ROSACEA TOPICA L DISCONT INUED 04/02/2024 [id number] CLARK ZUNIGA 2023 90 [facility] MICONAZOLE NITRATE 2% PWDR,TOP APPLY SMALL AMOUNT TOPICALL Y TWICE DAILY NEEDED FOR FUNGAL INFECTIO N OF SKIN TOPICA L ACTIVE 04/28/2025 [id number] CLARK ZUNIGA 2024 85 [facility] MOISTURIZIN G (EQV-LUBRID ERM) UNSCENTED LOTION,TOP APPLY LIBERAL AMOUNT TOPICALL Y DIRECTED DRY SKIN TOPICA L ACTIVE 04/28/2025 [id number] CLARK ZUNIGA 2024 473 [facility] OMEPRAZOLE 20MG CAP,EC TAKE ONE CAPSULE BY MOUTH TWICE DAILY BEFORE A MEAL FOR GASTROES OPHAGEAL REFLUX DISEASE ORAL DISCONT INUED BY EULALIO R 08/11/2024 [id number] JUAN OBRIEN 2023 180 [facility] OMEPRAZOLE 20MG CAP,EC TAKE ONE CAPSULE BY MOUTH EVERY MORNING 30 MINUTES BEFORE BREAKFAS T FOR GASTROES OPHAGEAL REFLUX DISEASE ORAL DISCONT INUED (EDIT) 04/02/2024 [id number] 4 JUAN OBRIEN 2023 90 [facility] OMEPRAZOLE 20MG CAP,EC TAKE ONE CAPSULE BY MOUTH EVERY MORNING 30 MINUTES BEFORE BREAKFAS T FOR GASTROES OPHAGEAL REFLUX DISEASE ORAL DISCONT INUED 06/13/2023 [id number] JUAN JON 2022 90 [facility] OXYCODONE HCL 5MG TAB TAKE ONE TABLET BY MOUTH EVERY 8 HOURS NEEDED ORAL ACTIVE ROBYN SNYDER 2024 [facility] PANTOPRAZOL E NA 40MG TAB,EC TAKE ONE TABLET BY MOUTH TWICE DAILY BEFORE A MEAL FOR EXCESSIV E PRODUCTI ON OF STOMACH ACID ORAL ACTIVE 02/11/2025 [id number] 4 JUAN OBRIEN 2023 180 [facility] RIVAROXABAN 20MG TAB TAKE ONE TABLET BY MOUTH EVERY EVENING WITH FOOD ORAL DISCONT INUED BY PROVIDE R 08/11/2024 [id number] 4 JUAN OBRIEN 2023 90 [facility] RIVAROXABAN 20MG TAB TAKE ONE TABLET BY MOUTH EVERY EVENING WITH FOOD ORAL DISCONT INUED 2024 [id number] JUAN OBRIEN 2022 90 [facility] SEMAGLUTIDE 2MG/0.75ML INJ,SOLN,PE N,3ML INJECT 2MG SUBCUTAN EOUSLY ONCE A WEEK SUBCUT ANEOUS ACTIVE GDROBYN DIEHL I A 2024 [facility] SILDENAFIL CITRATE 100MG TAB TAKE ONE TABLET BY MOUTH ONCE DAILY TAKE 1 HOUR PRIOR TO SEXUAL ACTIVITY ORAL ACTIVE 08/11/2024 [id number] JUAN OBRIEN 2023 18 [facility] SILDENAFIL CITRATE 100MG TAB TAKE ONE TABLET BY MOUTH ONCE DAILY TAKE 1 HOUR PRIOR TO SEXUAL ACTIVITY ORAL DISCONT INUED (EDIT) 04/02/2024 [id number] JAUN OBRIEN 2023 6 [facility] SIMVASTATIN 80MG TAB TAKE ONE-HALF TABLET BY MOUTH EVERY EVENING FOR CHOLESTE ROL ORAL ACTIVE 04/23/2025 [id number] 5 JUAN OBRIEN 2024 45 [facility] SIMVASTATIN 80MG TAB TAKE ONE-HALF TABLET BY MOUTH EVERY EVENING FOR CHOLESTE ROL ORAL DISCONT INUED 04/02/2024 [id number] 4 JUAN OBRIEN 2023 45 [facility] SIMVASTATIN 80MG TAB TAKE ONE-HALF TABLET BY MOUTH EVERY EVENING FOR CHOLESTE ROL ORAL DISCONT INUED 06/13/2023 [id number] JUAN JON 2022 45 [facility] TERBINAFINE HCL 1% CREAM,TOP APPLY A THIN LAYER TOPICALL Y TWICE DAILY FOR RINGWORM OF THE BODY APPLY TO RIGHT LEG UP TO 1-4 WEEKS UNTIL RASH RESOLVES TOPICA L ACTIVE 04/28/2025 [id number] CLARK ZUNIGA 2024 90 [facility] VALSARTAN 160MG TAB TAKE ONE TABLET BY MOUTH ONCE DAILY FOR HIGH BLOOD PRESSURE ORAL ACTIVE 02/11/2025 [id number] JUAN OBRIEN 2024 90 [facility] Allergies, Adverse Reactions, Alerts Combined list of allergies from Department of Defense and Veterans Affairs facilities. It does not include entries that were removed or entered in error. Substance Category Reaction Severity Reaction type Status Date Reported Comments Source AMITRIPTYLIN E Propensity to adverse reactions to drug (finding) Xerostomia active 9 [facility] AMITRIPTYLIN E Propensity to adverse reactions to drug (finding) active 2 [facility] ERYTHRITOL Propensity to adverse reactions to substance (finding) active 2 [facility] ERYTHROMYCIN Propensity to adverse reactions to drug (finding) active 6 [facility] GABAPENTIN Propensity to adverse reactions to drug (finding) Drowsy active 9 [facility] GABAPENTIN Propensity to adverse reactions to drug (finding) active 2 [facility] Immunizations Combined list of available immunizations from the Department of Defense and Veterans Affairs facilities. Immunization Series Date Given Administered By Site Reaction Lot Number CVX Code Drug Wheat Farmer Status Comments Source COVID-19 (MODERNA), MRNA, LNP-S, PF, 50 MCG/0.5 ML (AGES 12+ YEARS) 2023 SHOA[employer] NETTLES NIKKI LEFT DELTO ID [id number] 312 complet ed [facility] PNEUMOCOCCAL CONJUGATE PCV20, POLYSACCHARID E [id number] CONJUGATE, ADJUVANT, PF 2023 SHOA[employer] NETTLES RIGHT DELTO ID [id number] 216 complet ed [facility] INFLUENZA, UNSPECIFIED FORMULATION 2023 88 complet ed [facility] TDAP 2022 SHOAIB NETTLES LEFT DELTO ID [id number] 115 complet ed [facility] INFLUENZA, UNSPECIFIED FORMULATION 2021 88 complet ed [facility] HEP B, ADULT 3 2020 43 complet ed [facility] COVID-19 (PFIZER), MRNA, LNP-S, PF, 30 MCG/0.3 ML DOSE 2 2020 208 complet ed PFR; [id number]; 1 [facility] COVID-19 ([employer]), MRNA, LNP-S, PF, 30 MCG/0.3 ML DOSE 1 2020 208 complet ed PFR; [id number]; 1 [facility] HEP B, ADULT 2 2019 43 complet ed [facility] HEP B, ADULT 1 2019 43 complet ed [facility] INFLUENZA, INJECTABLE, QUADRIVALENT, PRESERVATIVE FREE 2019 150 complet ed [facility] ZOSTER RECOMBINANT 2 2019 187 complet ed [facility] ZOSTER RECOMBINANT 1 2019 187 complet ed [facility] INFLUENZA, SEASONAL, INJECTABLE 2018 141 complet ed [facility] INFLUENZA, SEASONAL, INJECTABLE 2017 141 complet ed Site: Right Deltoid [facility] FLU,3 YRS (HISTORICAL) 2015 88 complet ed Site: Left Deltoid [facility] FLU,3 YRS (HISTORICAL) 2015 88 complet ed Site: Left Deltoid [facility] FLU,3 YRS (HISTORICAL) 2013 88 complet ed Site: Right Deltoid [facility] FLU,3 YRS (HISTORICAL) 2012 88 complet ed Site: Right Deltoid [facility] DTAP, UNSPECIFIED FORMULATION 2012 107 complet ed Site: Left Deltoid [facility] FLU,3 YRS (HISTORICAL) 2012 88 complet ed Site: Right Deltoid [facility] TD(ADULT) UNSPECIFIED FORMULATION 2012 139 complet ed [facility] FLU,3 YRS (HISTORICAL) 2010 88 complet ed [facility] PNEUMOCOCCAL, UNSPECIFIED FORMULATION 2010 109 complet ed Site: Left Deltoid [facility] TD(ADULT) UNSPECIFIED FORMULATION 2010 139 complet ed states had at PCP within approx last year [facility] FLU,3 YRS (HISTORICAL) 2009 88 complet ed Site: Left Deltoid [facility] Results Combined list of recent chemistry, hematology and other laboratory results from Department of Defense and Veterans Affairs, ranging from 15 months to all on record, depending upon the facility. Order Name Results Value Reference Range Date Interpretation Specimen Comments Source PSA PROSTATE SPECIFIC AG [MASS/VOLUM E] IN SERUM OR PLASMA 3.36 ng/mL 0.00 - 4.00 02/10 Specimen Type: SERUM No comment entered. Ordering Provider: MAGED OBRIEN Report Released Date/Time: Jan 29, 2024 02:25 PM Reporting Lab: [facility] [place] [facility] [address] [facility] [address] Performing Lab: [facility] [place] [facility] [address] [facility] [address] [facility] PT & INR (PROTIME) INR IN PLATELET POOR PLASMA BY COAGULATION ASSAY 1.2 02/10 Specimen Type: PLASMA No comment entered. Ordering Provider: MAGED OBRIEN Report Released Date/Time: Jan 29, 2024 02:25 PM Reporting Lab: [facility] [place] [address] [address] Performing Lab: [facility] [place] [facility] [address] [address] [facility] [place] [facility] PT & INR (PROTIME) PROTHROMBIN TIME (PT) 12.8 s 10.0 - 13.1 02/10 Specimen Type: PLASMA No comment entered. Ordering Provider: MAGED OBRIEN Report Released Date/Time: Jan 29, 2024 02:25 PM Reporting Lab: [facility] [place] [address] [address] Performing Lab: [facility] [address] [address] [facility] LIPID PANEL, NON FASTING CHOLESTEROL [MASS/VOLUM E] IN SERUM OR PLASMA 128 mg/dL 02/10 Specimen Type: SERUM No comment entered. Ordering Provider: MAGED OBRIEN Report Released Date/Time: Jan 29, 2024 02:25 PM Reporting Lab: [facility] [place] [address] [address] Performing Lab: [facility] [place] [address] [address] [facility] [place] [facility] LIPID PANEL, NON FASTING TRIGLYCERID E [MASS/VOLUM E] IN SERUM OR PLASMA 81 mg/dL 0 - 150 02/10 Specimen Type: SERUM No comment entered. Ordering Provider: MAGED OBRIEN Report Released Date/Time: Jan 29, 2024 02:25 PM Reporting Lab: [facility] [place] [address] [address] Performing Lab: [facility] [address] [address] [facility] LIPID PANEL, NON FASTING CHOLESTEROL IN LDL [MASS/VOLUM E] IN SERUM OR PLASMA BY CALCULATION 78 mg/dL 0 - 129 02/10 Specimen Type: SERUM No comment entered. Ordering Provider: MAGED OBRIEN Report Released Date/Time: Jan 29, 2024 02:25 PM Reporting Lab: [facility] [address] [facility] [address] Performing Lab: [facility] W[facility]N [facility] [address] [address] [facility]ERN [facility]USE [facility] LIPID PANEL, NON FASTING CHOLESTEROL .TOTAL/CHOL ESTEROL IN HDL [MASS RATIO] IN SERUM OR PLASMA 3.8 02/10 Specimen Type: SERUM No comment entered. Ordering Provider: MAGED OBRIEN Report Released Date/Time: Jan 29, 2024 02:25 PM Reporting Lab: [facility] [address] [address] Performing Lab: [facility]ITALTR[facility] [address] [address] [facility] LIPID PANEL, NON FASTING CHOLESTEROL IN HDL [MASS/VOLUM E] IN SERUM OR PLASMA 34 mg/dL 40 - 60 02/10 L Specimen Type: SERUM No comment entered. Ordering Provider: MAGED OBRIEN Report Released Date/Time: Jan 29, 2024 02:25 PM Reporting Lab: [facility] [place] [address] [address] Performing Lab: [facility] [address] [address] [facility]RDEKAL[facility] CBC LEUKOCYTES [#/VOLUME] IN BLOOD BY AUTOMATED COUNT 5.97 10*3/u L 4.50 - 11.00 02/10 Specimen Type: BLOOD No comment entered. Ordering Provider: MAGED OBRIEN Report Released Date/Time: Jan 29, 2024 02:25 PM Reporting Lab: [facility] [place] [facility] [address] [facility] [address] Performing Lab: [facility] [place] [facility] [address] [facility] [address] [facility] [place] [facility] CBC ERYTHROCYTE S [#/VOLUME] IN BLOOD BY AUTOMATED COUNT 5.12 10*6/u L 4.23 - 5.66 02/10 Specimen Type: BLOOD No comment entered. Ordering Provider: MAGED OBRIEN Report Released Date/Time: Jan 29, 2024 02:25 PM Reporting Lab: [facility] [place] [facility] [address] [facility] [address] Performing Lab: [facility] [place] [facility] [address] [address] [facility] [place] [facility] CBC HEMOGLOBIN [MASS/VOLUM E] IN BLOOD 12.1 g/dL 12.8 - 17 02/10 L Specimen Type: BLOOD No comment entered. Ordering Provider: MAGED OBRIEN Report Released Date/Time: Jan 29, 2024 02:25 PM Reporting Lab: [facility] [place] [facility] [address] [facility] [address] Performing Lab: [facility] [place] [facility] [address] [facility] [address] [facility] CBC HEMATOCRIT [VOLUME FRACTION] OF BLOOD BY AUTOMATED COUNT 39.0 39.2 - 50.4 02/10 L Specimen Type: BLOOD No comment entered. Ordering Provider: MAGED OBRIEN Report Released Date/Time: Jan 29, 2024 02:25 PM Reporting Lab: [facility] [place] [facility] [address] [facility] [address] Performing Lab: [facility] [place] [facility] [address] [facility] [address] [facility] [place] [facility] CBC MCV [ENTITIC VOLUME] BY AUTOMATED COUNT 76.2 fL 82 - 99 02/10 L Specimen Type: BLOOD No comment entered. Ordering Provider: MAGED OBRIEN Report Released Date/Time: Jan 29, 2024 02:25 PM Reporting Lab: [facility] [place] [facility] [address] [facility] [address] Performing Lab: [facility] [place] [facility] [address] [facility] [address] [facility] [facility] CBC MCHC [MASS/VOLUM E] BY AUTOMATED COUNT 31.0 g/dL 30.8 - 35.1 02/10 Specimen Type: BLOOD No comment entered. Ordering Provider: MAGED OBRIEN Report Released Date/Time: Jan 29, 2024 02:25 PM Reporting Lab: [facility] [place] [facility] [address] [facility] [address] Performing Lab: [facility] [place] [facility] [address] [facility] [address] [facility] CBC PLATELETS [#/VOLUME] IN BLOOD BY AUTOMATED COUNT 280 10*3/u L 140 - 360 02/10 Specimen Type: BLOOD No comment entered. Ordering Provider: MAGED OBRIEN Report Released Date/Time: Jan 29, 2024 02:25 PM Reporting Lab: [facility] [place] [facility] [address] [facility] [address] Performing Lab: [facility] [place] [facility] [address] [facility] [address] [facility] [place] [facility] CBC ERYTHROCYTE DISTRIBUTIO N WIDTH [RATIO] BY AUTOMATED COUNT 19.3 12.0 - 16.0 02/10 H Specimen Type: BLOOD No comment entered. Ordering Provider: MAGED OBRIEN Report Released Date/Time: Jan 29, 2024 02:25 PM Reporting Lab: [facility] [place] [facility] [address] [facility] [phone] Performing Lab: [facility] [place] [facility] [address] [facility] [address] [facility] [place] [facility] CBC MCH [ENTITIC MASS] BY AUTOMATED COUNT 23.6 pg 26.2 - 32.6 02/10 L Specimen Type: BLOOD No comment entered. Ordering Provider: MAGED OBRIEN Report Released Date/Time: Jan 29, 2024 02:25 PM Reporting Lab: [facility] [place] [facility] [address] [facility] [address] Performing Lab: [facility] [place] [facility] [address] [facility] [id number] [facility] [facility] [facility] LIVER FUNCTION PROTEIN [MASS/VOLUM E] IN SERUM OR PLASMA 7.3 g/dL 6.0 - 8.3 02/10 Specimen Type: SERUM No comment entered. Ordering Provider: MAGED OBRIEN Report Released Date/Time: Jan 29, 2024 02:25 PM Reporting Lab: [facility] [place] [facility] [address] [facility] [address] Performing Lab: [place] [facility] [place] [place] [address] [address] [facility] [place] [facility] LIVER FUNCTION ALBUMIN [MASS/VOLUM E] IN SERUM OR PLASMA 4.0 g/dL 3.5 - 5.0 02/10 Specimen Type: SERUM No comment entered. Ordering Provider: MAGED OBRIEN Report Released Date/Time: Jan 29, 2024 02:25 PM Reporting Lab: [facility] [place] [address] [address] Performing Lab: [facility] [place] [facility] [address] [facility] [address] [facility] [place] [facility] LIVER FUNCTION ALKALINE PHOSPHATASE [ENZYMATIC ACTIVITY/VO LUME] IN SERUM OR PLASMA 72 U/L 40 - 150 02/10 Specimen Type: SERUM No comment entered. Ordering Provider: MAGED OBRIEN Report Released Date/Time: Jan 29, 2024 02:25 PM Reporting Lab: [facility] [place] [facility] [address] [facility] [address] Performing Lab: [facility] [place] [address] [address] [facility] [place] [facility] LIVER FUNCTION ASPARTATE AMINOTRANSF ERASE [ENZYMATIC ACTIVITY/VO LUME] IN SERUM OR PLASMA 19 U/L 5 - 34 02/10 Specimen Type: SERUM No comment entered. Ordering Provider: MAGED OBRIEN Report Released Date/Time: Jan 29, 2024 02:25 PM Reporting Lab: [facility] [place] [facility] [address] [facility] [address] Performing Lab: [facility] [place] [facility] [address] [facility] [address] [facility] [place] [facility] LIVER FUNCTION ALANINE AMINOTRANSF ERASE [ENZYMATIC ACTIVITY/VO LUME] IN SERUM OR PLASMA 14 U/L 02/10 Specimen Type: SERUM No comment entered. Ordering Provider: MAGED OBRIEN Report Released Date/Time: Jan 29, 2024 02:25 PM Reporting Lab: [facility] [place] [address] [address] Performing Lab: [facility] [place] [address] [address] [facility] [place] [facility] LIVER FUNCTION BILIRUBIN.T OTAL [MASS/VOLUM E] IN SERUM OR PLASMA 1.0 mg/dL 0.2 - 1.2 02/10 Specimen Type: SERUM No comment entered. Ordering Provider: MAGED OBRIEN Report Released Date/Time: Jan 29, 2024 02:25 PM Reporting Lab: [facility] [place] [address] [address] Performing Lab: [facility] [place] [address] [address] [facility] [place] [facility] BASIC METABOLIC PANEL (non-fast ing) UREA NITROGEN [MASS/VOLUM E] IN SERUM OR PLASMA 11 mg/dL 7 - 25 02/10 Specimen Type: SERUM No comment entered. Ordering Provider: MAGED OBRIEN Report Released Date/Time: Jan 29, 2024 02:25 PM Reporting Lab: [facility] [place] [address] [address] [facility]: [facility] [address] [facility] [address] [facility] BASIC METABOLIC PANEL (non-fast ing) GLUCOSE [MASS/VOLUM E] IN SERUM OR PLASMA 110 mg/dL 65 - 100 02/10 H Specimen Type: SERUM No comment entered. Ordering Provider: MAGED OBRIEN Report Released Date/Time: Jan 29, 2024 02:25 PM Reporting Lab: [address] [address] Performing Lab: [address] [address] [facility] BASIC METABOLIC PANEL (non-fast ing) SODIUM [MOLES/VOLU ME] IN SERUM OR PLASMA 142 mmol/L 135 - 145 02/10 Specimen Type: SERUM No comment entered. Ordering Provider: MAGED OBRIEN Report Released Date/Time: Jan 29, 2024 02:25 PM Reporting Lab: [address] [address] Performing Lab: [address] [address] [facility] BASIC METABOLIC PANEL (non-fast ing) POTASSIUM [MOLES/VOLU ME] IN SERUM OR PLASMA 4.6 mmol/L 3.5 - 5.0 02/10 Specimen Type: SERUM No comment entered. Ordering Provider: MAGED OBRIEN Report Released Date/Time: Jan 29, 2024 02:25 PM Reporting Lab: [address] [address] Performing Lab: [address] [address] [facility] BASIC METABOLIC PANEL (non-fast ing) CHLORIDE [MOLES/VOLU ME] IN SERUM OR PLASMA 108 mmol/L 100 - 110 02/10 Specimen Type: SERUM No comment entered. Ordering Provider: MAGED OBRIEN Report Released Date/Time: Jan 29, 2024 02:25 PM Reporting Lab: [facility] [address] [facility] [address] Performing Lab: [facility]USE[facility] [address] [facility] [address] [facility]RL [facility]ITALUSE [facility] BASIC METABOLIC PANEL (non-fast ing) CARBON DIOXIDE, TOTAL [MOLES/VOLU ME] IN SERUM OR PLASMA 24 meq/L 20 - 30 02/10 Specimen Type: SERUM No comment entered. Ordering Provider: MAGED OBRIEN Report Released Date/Time: Jan 29, 2024 02:25 PM Reporting Lab: [facility]ITALRL [facility]USE[facility] [address] [facility] [address] Performing Lab: [facility]ITALUSE[address] [address] [facility]ITALRL [facility]ITALN [facility]ITALUSE [facility] BASIC METABOLIC PANEL (non-fast ing) CREATININE [MASS/VOLUM E] IN SERUM OR PLASMA 0.84 mg/dL 0.50 - 1.40 02/10 Specimen Type: SERUM No comment entered. Ordering Provider: MAGED OBRIEN Report Released Date/Time: Jan 29, 2024 02:25 PM Reporting Lab: [facility]ITALRL [facility]ITALUSETS [address] [address] Performing Lab: [facility]RL [facility]ITALUSE[address] [address] [facility]ITALRL TRN [facility]ITALUSE [facility] BASIC METABOLIC PANEL (non-fast ing) GLOMERULAR FILTRATION RATE/1.73 SQ M.PREDICTED [VOLUME RATE/AREA] IN SERUM, PLASMA OR BLOOD BY CREATININE- BASED FORMULA (CKD-EPI 2020) >90mL/ min 60 02/10 Specimen Type: SERUM No comment entered. Ordering Provider: MAGED OBRIEN Report Released Date/Time: Jan 29, 2024 02:25 PM Reporting Lab: [facility]ITALUSE[address] [address] Performing Lab: [facility]ITALUSE[address] [address] [facility] [place] [facility] HEMOGLOBI N A1C PANEL HEMOGLOBIN A1C/HEMOGLO BIN.TOTAL IN BLOOD BY HPLC 5.3 4.0 - 5.6 02/10 Specimen Type: BLOOD Comment: Values obtained from A1C measurement s can vary. For atypical A1C assays, a reported value of 7.0 could actually be between 6.72 and 7.28 if measured by a reference method. A reported value of 9.0 could actually be between 8.73 and 9.27. Ref: http://www. ngsp.org/[place] Pdata.asp Ordering Provider: MAGED OBRIEN Report Released Date/Time: Jan 29, 2024 02:25 PM Reporting Lab: [facility] [place] [address] [address] Performing Lab: [facility] [place] [address] [address] [facility]ITALRL [facility] [place] [facility] MICROALBU MIN CREATININ E RATIO PANEL MICROALBUMI N/CREATININ E [MASS RATIO] IN URINE 7.9 mg/g 0 - 29.9 02/10 Specimen Type: URINE No comment entered. Ordering Provider: MAGED OBRIEN Report Released Date/Time: Jan 29, 2024 02:25 PM Reporting Lab: [facility] [place] [address] [address] Performing Lab: [facility] [place] [address] [address] [facility] [place] [facility] MICROALBU MIN CREATININ E RATIO PANEL MICROALBUMI N [MASS/VOLUM E] IN URINE 1.8 mg/dL 02/10 Specimen Type: URINE No comment entered. Ordering Provider: MAGED OBRIEN Report Released Date/Time: Jan 29, 2024 02:25 PM Reporting Lab: [facility] [place] [place] [address] [address] Performing Lab: [facility] [place] [address] [address] [facility] [place] [facility] MICROALBU MIN CREATININ E RATIO PANEL CREATININE [MASS/VOLUM E] IN URINE 227.28 mg/dL 02/10 Specimen Type: URINE No comment entered. Ordering Provider: MAGED OBRIEN Report Released Date/Time: Jan 29, 2024 02:25 PM Reporting Lab: [facility]OSPITALRBRYCE HOSPITALTRN [place] [facility] [address] [facility] [address] Performing Lab: [facility]PITALRL TRN [facility]ITALUSE[facility] [address] [facility] [address] [facility]RL TRN [place] [facility] PSA PROSTATE SPECIFIC AG [MASS/VOLUM E] IN SERUM OR PLASMA 3.60 ng/mL 0.00 - 4.00 08/10 Specimen Type: SERUM No comment entered. Ordering Provider: MAGED OBRIEN Report Released Date/Time: Aug 11, 2023 08:42 AM Reporting Lab: [facility]ITALUSE[address] [address] Performing Lab: [facility]OSPITALRDEKALB REGIONAL MEDICAL CENTERN [facility]ITALUSE[address] [address] [facility]ITALUSE [facility] LIPID PANEL, NON FASTING CHOLESTEROL [MASS/VOLUM E] IN SERUM OR PLASMA 112 mg/dL 08/10 Specimen Type: SERUM No comment entered. Ordering Provider: MAGED OBRIEN Report Released Date/Time: Aug 11, 2023 08:42 AM Reporting Lab: [facility]OSPITALRDEKALB REGION[facility]ICAL CENTERN MASSUSE[address] [address] Performing Lab: [facility]OSPITALRL TRN [place] [address] [address] [facility]PITALRDEKALB REGION[facility] MEDICAL CENTERN [place] [facility] LIPID PANEL, NON FASTING TRIGLYCERID E [MASS/VOLUM E] IN SERUM OR PLASMA 127 mg/dL 0 - 150 08/10 Specimen Type: SERUM No comment entered. Ordering Provider: MAGED OBRIEN Report Released Date/Time: Aug 11, 2023 08:42 AM Reporting Lab: [facility]OSPITALRDEKALB [facility]ION[facility] MEDICAL CENTERN [facility]ITALUSE[address] [address] Performing Lab: [facility] HOSPITALRBRYCE HOSPITALTRN [facility]OSPITALUSE[address] [place] [address] [facility]OSPITALRDEKALB [facility]ION[facility]ICAL CENTERN [facility]ITALUSE [facility] LIPID PANEL, NON FASTING CHOLESTEROL IN LDL [MASS/VOLUM E] IN SERUM OR PLASMA BY CALCULATION 52 mg/dL 0 - 129 08/10 Specimen Type: SERUM No comment entered. Ordering Provider: MAGED OBRIEN Report Released Date/Time: Aug 11, 2023 08:42 AM Reporting Lab: [facility]OSPITALRL TRN [facility]ITALUSEM[facility] [address] [facility] [address] Performing Lab: [facility]OSPITALRL TRN [facility]ITALUSEM[facility] [address] [facility] [address] [facility]OS[facility]ITALUSE [facility] LIPID PANEL, NON FASTING CHOLESTEROL .TOTAL/CHOL ESTEROL IN HDL [MASS RATIO] IN SERUM OR PLASMA 3.2 08/10 Specimen Type: SERUM No comment entered. Ordering Provider: MAGED OBRIEN Report Released Date/Time: Aug 11, 2023 08:42 AM Reporting Lab: [facility]OSPITALRBRYCE HOSPITALTRN [facility]OSPITALUSETS [facility] [address] [facility] [address] Performing Lab: [facility]OSPITALRBRYCE HOSPITALTRN [facility]ITALUSEM[facility] [address] [facility] [address] [facility]OSPITALUSE [facility] LIPID PANEL, NON FASTING CHOLESTEROL IN HDL [MASS/VOLUM E] IN SERUM OR PLASMA 35 mg/dL 40 - 60 08/10 L Specimen Type: SERUM No comment entered. Ordering Provider: MAGED OBRIEN Report Released Date/Time: Aug 11, 2023 08:42 AM Reporting Lab: [facility]OSPITALRL TRN [facility]OSPITALUSETS [facility] [address] [facility] [address] Performing Lab: [facility]OSPITALRL TRN [facility] HOSPITALUSETS [address] [address] [facility]OSPITALUSE [facility] Vital Signs Combined list of inpatient and outpatient Vital Signs from Department of Defense and Veterans Affairs, ranging from 12 months to all on record, depending upon the facility. Vital Sign Value Date Comments Source SYSTOLIC BLOOD PRESSURE 143 04/28/19 25 09:46:03 [facility]ITALRDEKALB [facility]ENTERN [facility] DIASTOLIC BLOOD PRESSURE 82 025 09:46:03 [facility] [place] [facility] PULSE 88 04/27/2024 09:46:03 [facility] [place] [facility] SYSTOLIC BLOOD PRESSURE 155 03/16/19 25 10:12:42 [facility] [place] [facility] DIASTOLIC BLOOD PRESSURE 105 025 10:12:42 [facility] [place] [facility] PULSE 84 03/16/2024 10:12:42 [facility] [place] [facility] SYSTOLIC BLOOD PRESSURE 180 02/11/20 24 09:45:01 [facility] [place] [facility] DIASTOLIC BLOOD PRESSURE 110 024 09:45:01 [facility] [place] [facility] PULSE OXIMETRY 99 02/11/2024 09:45:01 [facility] [place] [facility] WEIGHT 327 02/11/2024 09:45:01 [facility] [place] [facility] BMI 41 kg/m2 02/11/2024 09:45:01 [facility] [place] [facility] PAIN 7 02/11/2024 09:45:01 [facility] [place] [facility] HEIGHT 75 02/11/2024 09:45:01 [facility] [place] [facility] TEMPERATURE 98.1 02/11/2024 09:45:01 [facility] [place] [facility] PULSE 110 02/11/2024 09:45:01 [facility] [place] [facility] RESPIRATION 20 02/11/2024 09:45:01 [facility] [place] [facility] SYSTOLIC BLOOD PRESSURE 133 08/11/19 24 08:22:15 [facility] [place] [facility] DIASTOLIC BLOOD PRESSURE 89 024 08:22:15 [facility] [place] [facility] PULSE OXIMETRY 99 08/11/2023 08:22:15 [facility] [place] [facility] WEIGHT 331 08/11/2023 08:22:15 [facility] [place] [facility] BMI 41 kg/m2 08/11/2023 08:22:15 [facility] [place] [facility] PAIN 5 08/11/2023 08:22:15 [facility] [place] [facility] HEIGHT 75 08/11/2023 08:22:15 [facility] [place] [facility] TEMPERATURE 98.3 08/11/2023 08:22:15 [facility] [place] [facility] PULSE 100 08/11/2023 08:22:15 [facility] [place] [facility] RESPIRATION 20 08/11/2023 08:22:15 [facility] [place] [facility] PULSE OXIMETRY 97 07/24/2023 09:35:18 [facility] [place] [facility] WEIGHT 335 07/24/2023 09:35:18 [facility] [place] [facility] BMI 42 kg/m2 07/24/2023 09:35:18 [facility] [place] [facility] PAIN 0 07/24/2023 09:35:18 [facility] [place] [facility] HEIGHT 75 07/24/2023 09:35:18 [facility] [place] [facility] TEMPERATURE 98.3 07/24/2023 09:35:18 [facility] [place] [facility] RESPIRATION 20 07/24/2023 09:35:18 [facility] [place] [facility] Encounters Combined list of: 1) Encounters from Department of Veterans Affairs facilities going backup to the last 18 months, not all VA inpatient encounters are included; 2) Encounters from the Department of Defense facilities going backup to 280 months. Location Location Details Encounter Type Encounter Number Reason For Visit Attending Provider ADM Date DC Date Status Disposition Source [facility]/P EST MOD 30-39 MIN [id number] Diagnos is: ICD-10- CM L57.0 Actinic keratos is CLARK ZUNIGA 12/25 [facility] En[facility] [id number] 01/14 [facility] O/P EST MOD 30-39 MIN [id number] Diagnos is: ICD-10- CM I48.21 Permane nt atrial fibrill ation Weston OBRIEN 01/23 [facility] HC PRO PHONE CALL 5-10 MIN [id number] Diagnos is: ICD-10- CM E11.9 Type 2 diabete s mellitu s without complic ations ALEJANDRA SNYDER 01/23 [facility] En[facility] [id number] 03/16 [facility] En[facility] [id number] 03/27 [facility] En[facility] [id number] 04/02 [facility] O/P EST MOD 30 MIN [id number] Diagnos is: ICD-10- CM L57.0 Actinic keratos is CLARK ZUNIGA 04/02 [facility] En[facility] [id number] 04/07 [facility] En[facility] [id number] 04/07 [facility] En[facility] [id number] 04/20 [facility] [place] 1/ [id number] Diagnos is: ICD-10- CM E11.9 Type 2 diabete s mellitu s without complic ations CONNIE LUNA Camille 04/22 [facility] FIT SPECTACLES MONOFOCAL [id number] Diagnos is: ICD-10- CM Z46.0 Encount er for fit/adj st of spectac les and contact lenses CHERYLMERCEDSkyla Shy Obrien [facility] En[facility] [id number] 04/27 [facility] En[facility] [id number] 07/16 [facility] O/P EST MOD 30 MIN [id number] Diagnos is: ICD-10- CM R11.0 Nausea Weston OBRIEN 07/23 [facility] En[facility] [id number] 07/26 [facility] En[facility] [id number] 07/26 [facility] En[facility] [id number] 08/02 [facility] En[facility] [id number] 08/09 [facility] OFF[facility] O/P EST MOD 30 MIN [id number] Diagnos is: ICD-10- CM I48.21 Permane nt atrial fibrill atWeston Aguero J 08/10 [facility] En[facility] [id number] 08/12 [facility] OFFICE O/P EST LOW 20 MIN [id number] Diagnos is: ICD-10- CM S88.112 S Complet e traum amp at lev betw kn and ankl, l low leg, sqla SANDI POWELL RLES D 09/22 [facility] OFFICE O/P EST MOD 30 MIN [id number] Diagnos is: ICD-10- CM 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 CLARK ZUNIGA 09/30 [facility] En[facility] [id number] 10/26 [facility] En[facility] [id number] 10/27 [facility] Encounter [id number] 11/04 [facility] En[facility] [id number] 11/10 [facility] DIABETIC CUSTOM MOLDED SHOE [id number] Diagnos is: ICD-10- CM E11.42 Type 2 diabete s mellitu s with diabeti c polyneu giovany SHER ALLEN CELIA 12/24 [facility] En[facility] [id number]/03 [facility] OFFICE O/P EST MOD 30 MIN [id number] 1. Diagnos is: ICD-10- CM K63.5 Polyp of colon Weston OBRIEN 02/10 [facility] QNHP OL DIG ASSMT&MGMT 5-10 [id number] Diagnos is: ICD-10- CM Z04.89 Encount er for examina tion and observa tion for oth reasons TOBINBLANQUITAEDGAR JUARESMOISES Obrien 02/11 [facility] Outpatient Encounter [id number] 03/16 [facility] MTMS BY PHARM ADDL 15 MIN [id number] Diagnos is: ICD-10- CM I10 Essenti al (primar y) hyperte nsion ALEJANDRA SNYDER A 03/16 [facility] OFFICE O/P EST LOW 20 MIN [id number] Diagnos is: ICD-10- CM E11.43 Type 2 diabete s w diabeti c autonom ic (poly)n europat SANDI Martínez D 03/22 [facility] Out[facility] Encounter [id number] 04/22 [facility] MTMS BY PHARM ADDL 15 MIN [id number] Diagnos is: ICD-10- CM I10 Essenti al (primar y) hyperte nsion ALEJANDRA SNYDER A 04/27 [facility] OFFICE O/P EST HI 40 MIN [id number] Diagnos is: ICD-10- CM L57.0 Actinic keratos is CLARK ZUNIGA 04/27 [facility] Outpatient [facility]counter [id number] CLARK ZUNIGA 04/27 [facility] Outpatient Encounter [id number] RADHA MARTINEZ MD 05/02 [facility] Outpatient Encounter [id number] RADHA MARTINEZ MD 05/02 [facility] OFF[facility] O/P EST MOD 30 MIN [id number] Diagnos is: ICD-10- CM E11.9 Type 2 diabete s mellitu s without complic ations CONNIE LUNA 05/03 [facility] [employer] MONOFOCAL [id number] Diagnos is: ICD-10- CM Z46.0 Encount er for fit/adj st of spectac les and contact lenses CONNIE LUNA 05/03 [facility] Social History Combined list of available smoking, tobacco, and other social history from [facility] Defense and [facility] facilities. Social History Type Response Date Comment Source Tobacco smoking status NHIS ND-TOBACCO FORMER USER 07/24/2023 [facility] [place] [facility] of [facility] [place] [facility] History of tobacco use ND-TOBACCO FORMER USER 07/14/2022 [facility] [place] [facility] History of tobacco use NSG NO TOBACCO USE PAST 30 DAYS 09/12/2021 [facility] History of tobacco use ND-TOBACCO FORMER USER 08/05/2021 [facility] [place] [facility] of [facility] TO < 15 YRS 09/09/2019 [facility] [place] [facility] History of tobacco use ND-TOBACCO FORMER USER 12/04/2017 [facility] [place] [facility] History of tobacco use QUIT TOBACCO USE > 7 YEARS AGO 05/29/2017 [facility] [place] [facility] History [facility] tobacco use QUIT TOBACCO USE 1-7 YEARS AGO 04/23/2015 [facility] [place] [facility] History of tobacco use QUIT TOBACCO USE 1-7 YEARS AGO 03/06/2011 [facility] [facility] [place] [facility] History of tobacco use CURRENT SMOKER 04/08/2010 cigar once in a while [facility] [place] [facility] History of tobacco use CURRENT SMOKER 02/21/2009 cigar once in a while [facility] [place] [facility] History of tobacco use CURRENT SMOKER 01/10/2009 claimed he only smokes 2 cigars every 2 weeks [facility] History of tobacco use QUIT TOBACCO USE 1-7 YEARS AGO 12/16/2007 [facility] [place] [facility] History of tobacco use QUIT TOBACCO USE 1-7 YEARS AGO 04/01/2007 [facility] [place] [facility] History of tobacco use QUIT TOBACCO USE IN PAST YEAR 09/28/2006 [facility] [place] [facility] History of tobacco use QUIT TOBACCO USE IN PAST YEAR 04/21/2006 [facility] [place] [facility] History of tobacco use CURRENT SMOKER 12/16/2005 OCCASIONAL CIGAR [facility] [place] [facility] History of tobacco use CURRENT SMOKER 05/19/2001 see below [facility] [place] [facility] Plan of Care List of future care activities from Department of [facility] Affairs facilities. Additional future care activities may be listed in the Assessment and Plan section. Date/Time Care Activity Care Activity Detail Facili ty 05/10/2024 AMBULATORY - MEDICINE [facility]BULATORY [facility] [place] [facility] 06/29/2024 AMBULATORY - MEDICINE AMBULATORY - [facility] [place] [facility] 08/08/2024 AMBULATORY - MEDICINE AMBULATORY - [facility]ICI [facility] [place] [facility] 08/09/2024 AMBULATORY - MEDICINE AMBULATORY - [facility]ICI [facility] [place] [facility] 10/26/2024 AMBULATORY - MEDICINE AMBULATORY - MEDICI [facility] [place] [facility] 04/13/2024 Laboratory - Emergency Generator Mechanic ry Order BASIC METABOLIC PANEL (non-fasting) BLOOD (SST-SERUM) SP [facility] [place] [facility] 04/25/2024 Consult Order COMMUNITY CARE-D ENTAL GENERAL Cons Mining Consultant's Choice [facility] [place] [facility] 04/27/2024 Laboratory - Emergency Generator Mechanic ry Order SURGICAL PATH ORDER SURG PATH SPEC. UNKNOWN SP [facility] [place] [facility] 04/27/2024 Consult Order SURGERY/CWM OUTP T Cons Mining Consultant's Choice [facility] [place] [facility] 05/03/2024 Consult Order EYEGLASS REQUEST - 4 SIGHT Cons Mining Consult[facility]'s [facility] [place] [facility]
--- OUTSIDE RECORDS SUMMARY | 2024-05-04 02:25 | XMS_ITS ---
Author Name [facility] [place] Organization [facility] [place] Address [address] [place] [address] Care Team Providers Care Survey Manager Name Role Phone JUAN OBRIEN Primary Care Provider Unavailed[facility] Insurance Providers: All historical and current Section [...] JESSE FAMIL Y Mar 07, 2000 105 [id number] [phone] JAY KRISHNA PATIENT ANTHEM BCBS FEDERAL PREFERRED PROVIDER ORGANIZAT ION (PPO) STAND JESSE FAMIL Y Mar 07, 2000 105 [id number] JAY KRISHNA PATIENT ANTHEM BCBS FEDERAL PREFERRED PROVIDER ORGANIZAT ION (PPO) STAND JESSE SELF Mar 07, 2000 105 [id number] JAY KRISHNA PATIENT BCBS [place] FEP PREFERRED PROVIDER ORGANIZAT ION (PPO) STAND JESSE FAMIL Y Mar 07, 2000 105 [id number] JAY KRISHNA PATIENT [place] PREFERRED PROVIDER ORGANIZAT ION (PPO) STAND JESSE FAMIL Y Mar 07, 2000 105 [id number] [phone] JAY KRISHNA PATIENT [place] DENTAL DENTAL INSURANCE STAND JESSE Mar 07, 2000 DENTAL [id number] [phone] JAY KRISHNA PATIENT [place] PREFERRED PROVIDER ORGANIZAT ION (PPO) STAND JESSE FAMIL Y Mar 07, 2000 105 [id number] JAY KRISHNA PATIENT [place] FEDERAL PREFERRED PROVIDER ORGANIZAT ION (PPO) STAND JESSE FAMIL Y Mar 07, 2000 105 [id number] JAY KRISHNA PATIENT [place] FEP BCBS PRESCRIPT ION CAREM ARK FEPRX PLAN Mar 07, 2000 [id number] JAY KRISHNA PATIENT [place] FEPRX PLAN PRESCRIPT ION CAREM [employer]K FEPRX Feb 23, 2010 [id number] JAY KRISHNA PATIENT [place] FEPRX PLAN PRESCRIPT ION CAREM ARK FEPRX Mar 07, 2000 [id number] JAY KRISHNA PATIENT [place]-F EP BCBS PRESCRIPT ION BCBS FEP Feb 23, 2010 [id number] JAY KRISHNA PATIENT [place]-F EP BCBS PRESCRIPT ION FEP CAREM ARK Feb 23, 2010 [id number] JAY KRISHNA PATIENT [place]-F EP BCBS PRESCRIPT ION BCBS FEP PLAN Feb 23, 2010 [id number] JAY KRISHNA PATIENT MEDICARE ([facility] [place] MEDICARE () PART A May 25, 2011 PART A [id number] [facility] JAY KRISHNA PATIENT MEDICARE ([facility] [place] MEDICARE () PART A May 25, 2011 PART A [id number] JAY KRISHNA PATIENT MEDICARE ([facility] [place] MEDICARE () PART A May 25, 2011 PART A [id number] [facility] [phone] JAY KRISHNA PATIENT MEDICARE (WNR) MEDICARE (M) PART A May 25, 2011 PART A [id number] JAY KRISHNA PATIENT MEDICARE (WNR) MEDICARE (M) PART A May 25, 2011 PART A [id number] JAY KRISHNA PATIENT MEDICARE (WNR) MEDICARE (M) PART A May 25, 2011 PART A [id number] JAY KRISHNA PATIENT MEDICARE (WNR) MEDICARE (M) PART A May 25, 2011 PART A [id number] 23 JAY KRISHNA PATIENT MEDICARE (WNR) MEDICARE (M) PART A May 25, 2011 PART A [id number] JAY KRISHNA PATIENT Selected Encounter This section includes the information on record at DC for the Encounter. Date/Time Encounter Type Encounter Description Reason Provider Source July 24, 2023 10:00 AM OFFICE O/P EST MOD 30 MIN PRIMARY CARE/MEDICINE ICD-10-CM R11.0 Nausea LUIS OBRIEN [facility] Encounter Template Text not used by DC Assessments - Encounter Diagnoses This section includes the primary and secondary diagnoses documented for the Encounter. Date/Time Primary/Secondary Diagnosis Diagnosis Name Provider Source Aug 24, 2023 07:15 AM PRIMARY Nausea [facility]REW OBRIEN [facility] Plan of Treatment: Future Appointments (+ 6 months) and Future Tests (+/- 45 days) The Plan of Treatment section includes future care activities for the patient from all DC treatmentfacilities. This section includes future appointments and future orders which are active, pending or scheduled. Future Appointments This section includes appointments that were scheduled to occur 6 months from the date of the Encounter, up to a maximum of 20 appointments. The data comes from all DC treatment facilities. Appointment Date/Time Appointment Type Appointme nt Facility Name Aug 11, 2023 08:30 AM AMBULATORY - MEDICINE [place] [facility] [place] [facility] Sep 23, 2023 08:30 AM AMBULATORY - MEDICINE [place] [facility] [place] [facility] Oct 01, 2023 11:00 AM AMBULATORY - MEDICINE [place] [facility] [place] [facility] Dec 25, 2023 11:30 AM AMBULATORY - MEDICINE [facility] Lab Results: +/- 30 days of the encounter This section includes the Chemistry and Hematology Lab Results on record with DC for the patient. Radiology Reports and Pathology Reports are provided separately, in subsequent sections. Lab Results This section contains the Chemistry/Hematology Results that were resulted 30 days before or 30 daysafter the date of the Encounter. Date/Time Source Result Type Result - Unit Interpretation Reference Range Comment Aug 11, 2023 08:54 AM [facility] CBC Specimen Type: BLOOD No comment entered. Ordering Provider: ANDREW OBRIEN AM Report Released Date/Time: Aug 11, 2023 08:42 AM Reporting Lab: [address] [address] Performing Lab: [address] [address] WBC 6.62 10*3/uL 4.50-11.00 RBC 4.77 10*6/uL 4.23-5.66 HGB 15.9 g/dL 12.8-17 HCT 45.1 39.2-50.4 MCV 94.5 fL 82-99 MCHC 35.3 g/dL H 30.8-35.1 PLT 229 10*3/uL 140-360 RDW-CV 12.9 12.0-16.0 MCH 33.3 pg H 26.2-32.6 Aug 11, 2023 08:54 AM [facility] LIPID PANEL, NON FASTING Specimen Type: SERUM No comment entered. Ordering Provider: ANDREW OBRIEN AM Report Released Date/Time: Aug 11, 2023 08:42 AM Reporting Lab: [address] [address] Performing Lab: [address] [address] CHOLESTEROL 112 mg/dL TRIGLYCERIDE 127 mg/dL 0-150 LDL calculated 52 mg/dL 0-129 CHOL/HDL 3.2 HDL CHOLESTEROL 35 mg/dL L 40-60 Aug 11, 2023 08:54 AM [facility] BASIC METABOLIC PANEL (non-fasting) Specimen Type: SERUM No comment entered. Ordering Provider: ANDREW OBRIEN AM Report Released Date/Time: Aug 11, 2023 08:42 AM Reporting Lab: [facility] [address] [address] Performing Lab: [address] [address] UREA NITROGEN 10 mg/dL 7-25 GLUCOSE 114 mg/dL H 65-100 SODIUM 137 mmol/L 135-145 POTASSIUM 4.0 mmol/L 3.5-5.0 CHLORIDE 106 mmol/L 100-110 CO2 22 meq/L 20-30 CREATININE, Serum 0.86 mg/dL 0.50-1.40 eGFR(CKD-EPI 2020) >90 mL/min >60 Aug 11, 2023 08:54 AM [facility] LIVER FUNCTION Specimen Type: SERUM No comment entered. Ordering Provider: ANDREW OBRIEN AM Report Released Date/Time: Aug 11, 2023 08:42 AM Reporting Lab: [address] [address] Performing Lab: [address] [address] PROTEIN,TOTAL 7.1 g/dL 6.0-8.3 ALBUMIN 3.9 g/dL 3.5-5.0 ALKALINE PHOSPHATASE 66 U/L 40-150 AST 23 U/L 5-34 ALT 20 U/L BILIRUBIN, TOTAL 1.9 mg/dL H 0.2-1.2 BILIRUBIN, DIRECT 0.7 mg/dL H 0-0.5 Aug 11, 2023 08:54 AM [facility] PSA Specimen Type: SERUM No comment entered. Ordering Provider: ANDREW OBRIEN AM Report Released Date/Time: Aug 11, 2023 08:42 AM Reporting Lab: [address] [address] Performing Lab: [address] [address] PSA 3.60 ng/mL 0.00-4.00 Aug 11, 2023 08:54 AM [facility] PT & INR (PROTIME) Specimen Type: PLASMA No comment entered. Ordering Provider: ANDREW OBRIEN AM Report Released Date/Time: Aug 11, 2023 08:42 AM Reporting Lab: [facility] [address] [address] Performing Lab: [facility] [address] [address] INR 2.1 PROTIME 23.2 s H 10.0-13.1 Aug 11, 2023 08:54 AM [facility] MICROALBUMIN CREATININE RATIO PANEL Specimen Type: URINE No comment entered. Ordering Provider: ANDREW OBRIEN AM Report Released Date/Time: Aug 11, 2023 08:42 AM Reporting Lab: [facility] [address] [address] Performing Lab: [address] [address] MICROALBUMIN/C REATININE RATIO 7.1 mg/g 0-29.9 MICROALBUMIN,Q UANTITATIVE 2.5 mg/dL RR UNAVAIL CREATININE URINE 349.96 mg/dL Aug 11, 2023 08:54 AM [facility] HEMOGLOBIN A1C PANEL Specimen Type: BLOOD Comment: Values obtained from A1C measurements can vary. For atypical A1C assays, a reported value of 7.0 could actually be between 6.72 and 7.28 if measured by a reference method. A reported value of 9.0 could actually be between 8.73 and 9.27. Ref: http://www.ngs p.org/CAPdata. asp Ordering Provider: ANDREW OBRIEN AM Report Released Date/Time: Aug 11, 2023 08:42 AM Reporting Lab: [facility] [address] [address] Performing Lab: [address] [address] HEMOGLOBIN A1C 5.0 4.0-5.6 July 24, 2023 09:55 AM [facility] GLUCOSE, Fingerstick Specimen Type: BLOOD Comment: For GLU FinTest performed by: Bob Arroyo For GLU Fin Meter #: [id number] Ordering Provider: ANDREW OBRIEN AM Report Released Date/Time: July 24, 2023 10:10 AM Reporting Lab: [facility] [address] [address] Performing Lab: [facility] [address] [address] GLUCOSE, Fingerstick 112 mg/dL H 65-100 Vital Signs: All taken on the encounter date This section contains inpatient and outpatient Vital Signs collected on the date of the Encounter. Date/Time Temperature Pulse Blood Pressure Respiratory Rate SP02 Pain Height Weight Body Mass Index Source July 24, 2023 10:25 AM 125 150/[address] [facility] July 24, 2023 09:41 AM 100 152/108 [facility] July 24, 2023 09:35 AM 98.3 20 97 0 75 [phone] [facility] Social History: Smoking Status (Most current) and Tobacco Use (All prior to encounter date) This section includes the most current, and the historical, smoking and tobacco- related health factors from the DC facility where the Encounter took place. Current Smoking Status This section includes the most current smoking, or tobacco-related health factor, from the DC facility where the Encounter took place. Date/Time Current Smoking Status Comment [facility] it July 24, 2023 10:00 AM DC-TOBACCO FORMER USER [facility] Tobacco Use History This section includes a history of the smoking, or tobacco-related health factors, that were collected on or before the date of the Encounter. The data comes from the DC facility where the Encounter took place. Date/Time Smoking Status/Tobac co Use Comment Facility July 24, 2023 10:00 AM DC-TOBACCO QUIT [address] [facility] July 14, 2022 03:30 PM VA-TOBACCO FOR[facility] July 14, 2022 03:30 PM VA-TOBACCO QUIT [address] [facility] Aug 05, 2021 01:00 PM VA-TOBACCO FORMER USER [facility] [place] [facility] Aug 05, 2021 01:00 PM VA-TOBACCO QUIT 5 TO < 15 YRS [facility] [place] [facility] Sep 09, 2019 01:25 PM VA-TOBACCO FORMER USER [facility] [place] [facility] Sep 09, 2019 01:25 PM VA-TOBACCO QUIT 5 TO < 15 YRS [facility] [place] [facility] Dec 04, 2017 10:18 AM VA-TOBACCO FORMER USER [facility] [place] [facility] Dec 04, 2017 10:18 AM VA-TOBACCO QUIT 5 TO < 15 YRS [facility] [place] [facility] May 29, 2017 09:09 AM QUIT TOBACCO USE > 7 YEARS AGO [facility] [place] [facility] Apr 23, 2015 08:21 AM QUIT TOBACCO USE > 7 YEARS AGO [facility] [place] [facility] Apr 23, 2015 08:21 AM QUIT TOBACCO USE 1-7 YEARS AGO [facility] [place] [facility] Mar 06, 2011 11:06 AM QUIT TOBACCO USE 1-7 YEARS AGO [facility] [place] [facility] Apr 08, 2010 10:56 AM CURRENT SMOKER cigar once in a while [facility] [place] [facility] Apr 08, 2010 10:56 AM V1-PT DECLINES REF TO TOBACCO CESS [facility] [place] [facility] Apr 08, 2010 10:56 AM V1-PT DECLINES TOBACCO CESSATION MEDS [facility] [place] [facility] Apr 08, 2010 10:56 AM V1-PT READY TO QUIT TOBACCO USE [facility] [place] [facility] Feb 21, 2009 09:16 AM CURRENT SMOKER cigar once in a while [facility] [place] [facility] Feb 21, 2009 09:16 AM V1-PT DECLINES REF TO TOBACCO CESS PRGM [facility] [place] [facility] Feb 21, 2009 09:16 AM V1-PT DECLINES TOBACCO CESSATION MEDS [facility] [place] [facility] Feb 21, 2009 09:16 AM V1-PT THINKING ABOUT QUIT TOBACCO USE [facility] [place] [facility] Dec 16, 2007 09:15 AM QUIT TOBACCO USE 1-[address] [facility] Apr 01, 2007 11:08 AM QUIT TOBACCO USE 1-[address] [facility] Sep 28, 2006 08:52 AM QUIT TOBACCO USE IN PAST YEAR [facility] Apr 21, 2006 10:31 AM QUIT TOBACCO USE IN PAST YEAR August 2005 [facility] Dec 16, 2005 10:02 AM CURRENT SMOKER OCCASIONAL CIGAR [facility] May 19, 2001 03:50 PM CURRENT SMOKER see below [facility] Encounter Notes: All associated encounter notes This section contains the clinical notes associated to the Encounter. Date/Time Encounter Note(s) Provider Source July 24, 2023 10:20 AM NURSING NOTE: LOCAL TITLE: NURSING/MEDICAL EMERGENCY NOTE STANDARD TITLE: NURSING NOTE DATE OF NOTE: JULY 24, 2023@10:20 ENTRY DATE: JULY 24, 2023@10:32:49 AUTHOR: BOB ARROYO EXP COSIGNER: URGENCY: STATUS: COMPLETED DEFINITIONS FOR FOCUS CHARTING FOCUS - Topic of note, based on change in condition, significant event or compliance with standards. DATA - Subjective or objective information supporting the focus. ACTION - Past, present or future nursing interventions. RESPONSE - Patient's response to nursing care. ======== Previous Vitals: Temperature: 98.3 F [36.8 C] (07/24/2023 09:35) Pulse: 125 (07/24/2023 10:25) Respiration: 20 (07/24/2023 09:35) Blood Pressure: 150/106 (07/24/2023 10:25) Height: 75 in [190.5 cm] (07/24/2023 09:35) Weight: 335 lb [151.95 kg] (07/24/2023 09:35) Allergies: ERYTHROMYCIN Active Medications: ======== ALS called NURSE to NURSE report to [facility] Paperwork sent and faxed /es/ BOB ARROYO REGISTERED NURSE Signed: 07/24/2023 10:48 BOB ARROYO [facility] [place] [facility] July 24, 2023 10:14 AM URGENT CARE NOTE: LOCAL TITLE: INTERFACILITY TRANSFER FORM [id number] [facility] STANDARD TITLE: URGENT CARE NOTE DATE OF NOTE: JULY 24, 2023@10:14 ENTRY DATE: JULY 24, 2023@10:15:24 AUTHOR: JUAN OBRIEN COSIGNER: URGENCY: STATUS: COMPLETED LIP (/) Required SECTION I - REASON FOR TRANSFER 1. Nature of services needed by patient requiring transfer (Identify): Diagnosis, Treatment 2. Describe service needed: SECTION II - TYPE AND LEVEL OF SERVICES REQUIRED 1. Diagnosis: NAUSEA 2. Description of treatment prior to transfer: SUPPORTIVE 3. Description of further treatment contemplated: NONE 4. Level of care prior to transfer (ER, Outpatient, Chap[place], ICU etc.): OUTPATIENT 5. Proposed level of care after transfer: er SECTION III - CONDITION OF PATIENT ON TRANSFER Attending oversight of JOSE Is patient medically stable for transfer: Yes Is patient behaviorally stable for transfer: Yes SECTION IV - MODE OF TRANSPORTATION 1. Describe mode and level of care required for transport (including facility staff if required): Transport mode: Ambulance Level of care: Advanced Cardiovascular Life Support 2. Medications or treatments required during transport: SECTION V - PATIENT/FAMILY CONSENT RECEIVED The [id number] consent form MUST BE COMPLETED in ED for ALL TRANSFERS including patients transferred under emergemcy/ implied consent. Consent for transfer obtained: YES Patient Consent obtained from: Patient SECTION - DECISION Transfer via community EMS Name of accepting LIP (/) or Point of Contact: Facility patient is being transferred to: Other: [facility] ER Date and time transfer is to occur: June@10:16 Unit patient to be transferred to: Contact phone number for accepting LIP (/) or POC: SECTION VII - Information to be sent with patient: Transfer note (Interfacility transfer note(s) [id number] Provider and Nurse) Medication lists including an active patient medication list and any medications given to the patient prior to transfer Copy of patient's (or legally responsible person acting on the patient's behalf) informed consent to transfer with DC Form [id number] Documentation of the patient's advance directive made prior to transfer, if any Copy of any State-authorized portable order for life-sustaining treatment, if available /daniela/ Juan Obrien DNP, ATHLETICS DIRECTOR-BC, CNL Primary Care Nurse Practitioner Signed: 07/24/2023 10:17 Receipt Acknowledged By: 07/28/2023 13:58 /daniela/ Geri Diallo MD INTERNAL MEDICINE and RHEUMATOLOGY JUAN OBRIEN [facility] [place] [facility] July 24, 2023 09:55 AM PRIMARY CARE NURSE PRACTITIONER OUTPATIENT NOTE: LOCAL TITLE: NURSE PRACTITIONER OUTPATIENT NOTE STANDARD TITLE: PRIMARY CARE NURSE PRACTITIONER OUTPATIENT NOTE DATE OF NOTE: JULY 24, 2023@09:55 ENTRY DATE: JULY 24, 2023@09:55:46 AUTHOR: JUAN OBRIEN EXP COSIGNER: URGENCY: STATUS: COMPLETED NURSE PRACTITIONER OUTPATIENT NOTE Has ADDENDA Chief complaint: Patient is a 63 year old . HPI: Pleasant male here to follow up. Noted to be diaphoretic, elevated blood pressure. While waiting in exam room he vomited yellow liquid substance. He denies sob, no chest pain. Sx onset when he got ready to come here today. He does note he had diarrhea about a week ago. He has had several episodes of dry heaving here. Considering the above, advised ER evaluation, will call [phone]. He is in agreement. PMH: Active problems - Computerized Problem List is the source for the followin. Long-term current use of anticoagulant 2. Atrial fibrillation 3. Primary erectile dysfunction 4. 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 History of cholecystectomy 2015 6. Obstructive sleep apnea syndrome compliant w cpap 06/10- no longer using cpap as he feels sxs have resolved w wt loss 7. Diabetic foot ulcer 8. status post knee replacement R TKR fall 2011 9. Opiate Dependence * DO NOT PRESCRIBE NARCOTICS- he gets elsewhere 10. Diabetes mellitus (SNOMED CT 58049801) 11. Atrial fibrillation (SNOMED CT 12730468) 12. Benign essential hypertension (SNOMED CT 5918765) 13. Family History of Ischemic Heart Disease 14. Obesity (SNOMED CT 367304623) 15. Hyperlipidemia and metabolic syndrome 16. Chronic Low Back Pain 17. Peripheral Neuropathy Allergies: ERYTHROMYCIN The following VA and Non-VA meds were reconciled with patient. The patient was educated on the use of the medications including indication and side effects. Active and Recently Outpatient Medications (excluding Supplies): Active Outpatient Medications Status 1) CARBOXYMETHYLCELLULOSE NA 0.5% OPH SOLN INSTILL 1 ACTIVE DROP INTO EACH EYE FOUR TIMES A DAY FOR DRY EYE 2) KETOTIFEN 0.025% OPH SOLN INSTILL 1 DROP INTO EACH ACTIVE EYE TWICE DAILY (IF YOU WEAR CONTACT LENSES, WAIT 10 MINUTES BEFORE INSERTING LENSES) 3) METRONIDAZOLE 0.75% TOP GEL APPLY SMALL AMOUNT ACTIVE TOPICALLY TWICE DAILY FOR ACNE ROSACEA 4) OMEPRAZOLE 20MG EC CAP TAKE ONE CAPSULE BY MOUTH ACTIVE EVERY MORNING 30 MINUTES BEFORE BREAKFAST FOR GASTROESOPHAGEAL REFLUX DISEASE 5) RIVAROXABAN 20MG TAB TAKE ONE TABLET BY MOUTH EVERY ACTIVE EVENING WITH FOOD 6) SILDENAFIL CITRATE 100MG TAB TAKE ONE TABLET BY MOUTH ACTIVE ONCE DAILY TAKE 1 HOUR PRIOR TO SEXUAL ACTIVITY 7) SIMVASTATIN 80MG TAB TAKE ONE-HALF TABLET BY MOUTH ACTIVE EVERY EVENING FOR CHOLESTEROL 8) VALSARTAN 80MG TAB TAKE ONE TABLET BY MOUTH ONCE ACTIVE DAILY Inactive Outpatient Medications Status 1) HYDROCHLOROTHIAZIDE 25MG TAB TAKE ONE TABLET BY MOUTH EVERY DAY TO PREVENT FLUID/CONTROL BLOOD PRESSURE 2) KETOCONAZOLE 2% CREAM APPLY A THIN LAYER TOPICALLY TWICE DAILY TO SKIN FOLDS, APPLY FOR 4 WEEKS, THEN NEEDED 3) MICONAZOLE NITRATE 2% TOP PWDR APPLY SMALL AMOUNT TOPICALLY TWICE DAILY APPLY TO AFFECTED SKIN FOLDS, FOR MAINTENANCE Active Non-VA Medications Status 1) Non-VA OXYCODONE HCL 5MG TAB NOT SA 5MG BY ACTIVE MOUTH TWICE A WEEK NEEDED 2) Non-VA SEMAGLUTIDE (OZEMPIC) PA-F INJ,SOLN ACTIVE SUBCUTANEOUSLY 13 Total Medications Review of Systems: Constitutional: (-)for Fevers, chills, weakness, nights sweats On examination: 98.3 F [36.8 C] (07/24/2023 09:35)152/108 (07/24/2023 09:41)100 (07/24/2023 09:41)20 (07/24/2023 09:35)0 (07/24/2023 09:35)BMI: 42.0335 lb [151.95 kg] (07/24/2023 09:35) [place] is alert and oriented X3 Cardiovasc: 2plus carotids without bruits, no JVD Heart Reguler rate and rhythm NL S1S2 no S3 or murmur Respiration: Normal respiratory effort, lungs clear Assessment/plan: Active problems - Computerized Problem List is the source for the following: Nausea, hypertension, diaphoresis - refer to ER. /es/ Juan Obrien DNP, ATHLETICS DIRECTOR-BC, CNL Primary Care Nurse Practitioner Signed: 07/24/2023 10:06 07/24/2023 ADDENDUM STATUS: COMPLETED JAY KRISHNA is a 63 yo MALE who is being sent to the Emergency Department for assessment and care. This has been authorized by JUAN OBRIEN Pt. has a history of: Active problems - Computerized Problem List is the source for the followin. Long-term current use of anticoagulant 2. Atrial fibrillation 3. Primary erectile dysfunction 4. History of amputation of leg above ankle 5. History of cholecystectomy 6. Obstructive sleep apnea syndrome 7. Diabetic foot ulcer 8. status post knee replacement 9. Opiate Dependence * 10. Diabetes mellitus (SNOMED CT 24591362) 11. Atrial fibrillation (SNOMED CT 59208793) 12. Benign essential hypertension (SNOMED CT 9961514) 13. Family History of Ischemic Heart Disease 14. Obesity (SNOMED CT 359497852) 15. Hyperlipidemia 16. Chronic Low Back Pain 17. Peripheral Neuropathy Active Outpatient Medications (including Supplies): Active Outpatient Medications Status 1) CARBOXYMETHYLCELLULOSE NA 0.5% OPH SOLN INSTILL 1 ACTIVE DROP INTO EACH EYE FOUR TIMES A DAY FOR DRY EYE 2) KETOTIFEN 0.025% OPH SOLN INSTILL 1 DROP INTO EACH ACTIVE EYE TWICE DAILY (IF YOU WEAR CONTACT LENSES, WAIT 10 MINUTES BEFORE INSERTING LENSES) 3) METRONIDAZOLE 0.75% TOP GEL APPLY SMALL AMOUNT ACTIVE TOPICALLY TWICE DAILY FOR ACNE ROSACEA 4) OMEPRAZOLE 20MG EC CAP TAKE ONE CAPSULE BY MOUTH ACTIVE EVERY MORNING 30 MINUTES BEFORE BREAKFAST FOR GASTROESOPHAGEAL REFLUX DISEASE 5) RIVAROXABAN 20MG TAB TAKE ONE TABLET BY MOUTH EVERY ACTIVE EVENING WITH FOOD 6) SILDENAFIL CITRATE 100MG TAB TAKE ONE TABLET BY MOUTH ACTIVE ONCE DAILY TAKE 1 HOUR PRIOR TO SEXUAL ACTIVITY 7) SIMVASTATIN 80MG TAB TAKE ONE-HALF TABLET BY MOUTH ACTIVE EVERY EVENING FOR CHOLESTEROL 8) VALSARTAN 80MG TAB TAKE ONE TABLET BY MOUTH ONCE ACTIVE DAILY Active Non-VA Medications Status 1) Non-VA OXYCODONE HCL 5MG TAB NOT SA 5MG BY ACTIVE MOUTH TWICE A WEEK NEEDED 2) Non-VA SEMAGLUTIDE (OZEMPIC) PA-F INJ,SOLN ACTIVE SUBCUTANEOUSLY 10 Total Medications Allergies: ERYTHROMYCIN RECENT VITAL SIGNS ===== Blood Pressure: 152/108 (07/24/2023 09:41) Pain: 0 (07/24/2023 09:35) Patient Height: 75 in [190.5 cm] (07/24/2023 09:35) Patient Weight: 335 lb [151.95 kg] (07/24/2023 09:35) Pulse: 100 (07/24/2023 09:41) Respiration: 20 (07/24/2023 09:35) Temperature: 98.3 F [36.8 C] (07/24/2023 09:35) Pulse Ox: Measurement DT POx (L/MIN)(%) 07/24/2023 09:35 97 ===== IMMUNIZATION HX PCE IMMUNIZATIONS ADMINISTERED Immunization Series Date Facility Reaction Info COVID-19 ([employer]), MRNA, LNP-S, * 2 05[facility]2020 [facility] <C> COVID-19 ([employer]), MRNA, LNP-S, * 1 05/01/2020 [facility] <C> DTAP, UNSPECIFIED FORMULATION 04/16/2012 [facility] * <C> FLU,3 YRS (HISTORICAL) 12/08/2015 [facility] * <C> FLU,3 YRS (HISTORICAL) 04/23/2015 [facility] * <C> FLU,3 YRS (HISTORICAL) 02/09/2014 [facility] * <C> FLU,3 YRS (HISTORICAL) 01/13/2013 [facility] * <C> FLU,3 YRS (HISTORICAL) 04/16/2012 [facility] * <C> FLU,3 YRS (HISTORICAL) Outside H* FLU,3 YRS (HISTORICAL) 12/21/2009 [facility] * <C> HEP B, ADULT 3 06/14/2020 [facility] * HEP B, ADULT 2 02/14/2020 [facility] * HEP B, ADULT 1 12/20/2019 [facility] * INFLUENZA, INJECTABLE, QUADRIVAL* 12/20/2019 [facility] * INFLUENZA, SEASONAL, INJECTABLE 11/23/2018 No Site INFLUENZA, SEASONAL, INJECTABLE 12/04/2017 [facility] * <C> INFLUENZA, UNSPECIFIED FORMULATI* 12/02/2021 Outside H* PNEUMOCOCCAL, UNSPECIFIED FORMUL* 04/08/2010 [facility] * <C> TD(ADULT) UNSPECIFIED FORMULATION No Site TD(ADULT) UNSPECIFIED FORMULATION No Site <C> TDAP B 03/04/2022 [facility] * ZOSTER RECOMBINANT 2 09/30/2019 [facility] * ZOSTER RECOMBINANT 1 03/28/2019 [facility] * CONTRAINDICATED No data available REFUSED ======= No data available <C> See the Detailed Immunizations Health Summary Component[DIM] for Comments * Value is truncated; see the Detailed Immunizations Health Summary Component[DIM] for complete text PPD TESTING Labs PPDST - Skin Tests No data available RECENT IMAGING Include data from 07/24/2022 to 07/24/2023 07/24/2023 10:09 CONFIDENTIAL IMAGING REPORTS SUMMARY pg. 1 JAY KRISHNA [id number] : 1960 II - Imaging Impression (max 1 occurrence) Date Procedure CPT Status Case # 07/30/2022 CT LOWER EXTREMITY W/CONT [id number] Verified 241 No popliteal fossa mass or residual fluid collection identified, as described above. IP - Imaging Profile 07/30/2022 CT LOWER EXTREMITY W/CONT CPT Code: 23576 Interpreting Staff: DEMARCO SIMS JR Exam Case Number: [id number] Exam Status: COMPLETE Rpt Status: VERIFIED Technologist: MARINA ATKINSON Reason for Study: R popliteal fossa mass. History: Date Procedure CPT Status Case # 07/14/2022 EXTREMITY, NONVASCULAR [id number] Verified 26 (COMPLETE) Solid hyperechoic masslike density in the right popliteal fossa measuring 4.2 x 1.7 cm with internal hypoechoic foci, of unclear clinical significance. Recommend correlation with dedicated CT scan. Report: Study: CT scan of the right knee with intravenous contrast. COMPARISON: Right lower extremity DVT ultrasound from July 14, 2022. TECHNIQUE: Multiple 3 mm contiguous axial images were obtained through the right knee after the uneventful administration of 100 cc of Omnipaque 350 nonionic intravenous contrast media. Sagittal and coronal reformatted images are provided. FINDINGS: The patient is again status post bilateral total knee replacements and a right below the knee amputation. The study is suboptimal secondary to significant metallic streak artifact resulting from the right knee prosthesis. No abnormal postcontrast enhancement is seen. There is a very small well-contained and well-circumscribed, nonenhancing fluid collection anterior and inferior to the tibial stump measuring 5.9 cm cephalocaudad by 6 mm AP (10-31) by 2.6 cm transversely (13-538). This likely represents postoperative seroma. This is away from the previously identified sonographic fluid collection. The right popliteal fossa region demonstrates no fluid collection currently. Furthermore, there is no focal mass seen in the right popliteal fossa. There is significant fatty muscular atrophy of the calf musculature status post amputation and the sonographic findings may reflect that. Given findings, follow-up imaging should only be as clinically indicated. Impression: No popliteal fossa mass or residual fluid collection identified, as described above. DX Codes: No immediate attention required 07/14/2022 ULTRASOUND EXTREMITY, NONVASCULAR (COMPLETE) Procedure Modifier: RIGHT CPT Code: 25316 Interpreting Staff: RADIOLOGY,OUTSIDE Exam Case Number: [id number] Exam Status: COMPLETE Rpt Status: VERIFIED Technologist: SHANE TREVIZO Reason for Study: R popliteal fossa History: with fluctuant mass (approx 3cm) with noted 5mm surface violaceous papule (sometimes bleeds per report), concern for thrombosed varicosity vs other. s/p Right below the knee amputation Report: EXTREMITY, NONVASCULAR (COMPLETE) HISTORY: R popliteal fossa COMPARISON: None available TECHNIQUE: Sonographic imaging of the right popliteal fossa was performed at the local [place] facility. 14 still images and 1 cine clips were received by the [place] [facility] ([facility]) for interpretation. Findings/ Impression: Solid hyperechoic masslike density in the right popliteal fossa measuring 4.2 x 1.7 cm with internal hypoechoic foci, of unclear clinical significance. Recommend correlation with dedicated CT scan. READING PHYSICIAN: Ashish Thacker MD -[id number] 07/15/2022 8:02 EDT [facility] National T[facility]ad[facility] Program [phone] (For Medical Practitioner Use Only) Attention Patients / Veterans: If you have questions or concerns about these test results, please contact your ordering provider or primary care team. 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 Pt. has a recent increase in right ankle edema. No previous study here Report: Exam: Right ankle Comparison: None Findings: Impression: The tibiotalar articulation appears intact. There is no acute tibial or fibular fracture. There is mid foot collapse, with associate advanced neuropathic changes of the midfoot. There is increased density in the ankle soft tissues compatible ankle joint effusion or soft tissue thickening, inflammation. Plantar and posterior calcaneal spurs noted. There is surgical fixation hardware over the first ray, not fully evaluated. DX Codes: Significant Abnormality Attention Needed 12/09/2012 FOOT 3 OR MORE VIEWS(RIGHT) Procedure Modifier: RIGHT CPT Code: 93748 CPT Modifier: RT - Right Side Interpreting Staff: DESIRE WEAVER Exam Case Number: [id number] Exam Status: COMPLETE Rpt Status: VERIFIED Technologist: ANGELA PAULA Reason for Study: pressure ulcer sub 1st metatarsal History: Pt. w/ neuropathy, non diabetic . S/P 1st mpj fusion 2005.he has developed a pressure ulceration sub 1st metatarsal head at the area of possible harhware placement Report: Right foot: Pressure ulcer on the plantar aspect of the first MTP joint area in nondiabetic with peripheral neuropathy. AP, oblique and lateral views without previous reveal fusion of the first metatarsal pharyngeal joint with plate and multiple screws inserted from the dorsal side of the foot. No bone destruction is identified deep to the shallow ulcer crater seen in the plantar medial foot or elsewhere. Fusion of the PIP joint of the second toe is present without hardware. 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 No fracture. Bone mineralization is average for age. Degenerative spurring is seen in the dorsal talonavicular, navicular-cuneiform and cuneiform-1st metatarsal joints. Large plantar and small Achilles tendon insertion site calcaneal spurs are present. No soft tissue calcifications or gas within the soft tissues. Impression: Plantar surface of the foot in the area of the first metatarsal pharyngeal joint has a shallow ulcer crater without evidence of underlying bone destruction in this patient with old fusion of the first metatarsal pharyngeal joint with hardware. If clinical concern persists for possible osteomyelitis, nuclear medicine white cell study would be appropriate as the presence of the hardware would limit MRI evaluation. Case discussed with Dr. coello by telephone at 8:35 a.m., December 10, 2012. DX Codes: No immediate attention required RECENT LABS Collection DT Spec WBC HGB HCT PLT K+/Pot Sodium HGBA1c 01/23/2023 07:40 SERUM 4.3 138 01/23/2023 07:40 BLOOD 5.5 01/23/2023 07:40 BLOOD 6.88 16.1 47.9 252 06/02/2022 07:57 SERUM 3.9 137 06/02/2022 07:57 BLOOD 6.4 H Collection DT Spec GLUCOSE CREATIN AST ALT T BILI ALK MERLIN CHOL 01/23/2023 07:40 SERUM 118 H 0.95 37 H 38 1.6 H 80 187 07/25/2022 10:59 SERUM 0.88 06/02/2022 07:57 SERUM 137 H 0.86 27 23 1.5 H 77 130 02/03/2022 07:46 SERUM 141 H 0.89 29 26 1.0 83 135 08/01/2021 10:56 SERUM 115 H 0.87 29 27 1.5 H 84 138 Collection DT Spec LDL-c HDL TRIG TSH B12 SR- VIT D25 RBC/HPF 01/23/2023 07:40 SERUM 111 30 L 228 H 1.29 06/02/2022 07:57 SERUM 69 27 L 171 H 1.54 02/03/2022 07:46 SERUM 77 32 L 128 1.34 08/01/2021 10:56 SERUM 68 32 L 191 H 12/20/2019 10:15 SERUM 81 37 L 235 H PATIENT DEMOGRAPHICS Address: [address] Phone: [place] [address] County: [place] Marital Status: Age: 63 Yazidism: BUDDHIST, NO DENOMINATION Sex: MALE 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 Period of Service: [place] Branch of Service: [employer] Combat: NO POW: NO Eligibility: SERVICE CONNECTED 50% to 100% Status: VERIFIED Means Test: NOK: DOMINGO KRISHNA Relation: SPOUSE 29 GERI [address]STRONG [place] Insurance COB Subscriber ID Group [employer] [facility] Social Median P [id number] FEB 23, 1999 [employer]BS J[place] FEP P [id number] MAR 07, 2000 [employer]BS [place] F[place] S [id number] MAR 07, 2000 [place] [employer] P [id number] FEB 23, 2010 MEDICARE (WNR) P [id number] MAY 25, 2011 MEDICARE (WNR) P [id number] MAY 25, 2011 No barriers; Patient understands and agrees to current treatment plan. EMERGENCY ROOMS Emergency Room FAX # Tel # [facility] [phone] [facility] [phone] [facility] [phone] Kee Valentine [phone] [place] [phone] [facility] [phone] 1 [place] [phone] /es/ ADIN OWEN ADVANCED CONTINUOUS DRIER OPERATOR Signed: 07/24/2023 10:10 JUAN OBRIEN [facility] [place] [facility] July 24, 2023 09:39 AM PREVENTIVE MEDICINE NURSING NOTE: LOCAL TITLE: CLINICAL REMINDERS/NURSING STANDARD TITLE: PREVENTIVE MEDICINE NURSING NOTE DATE OF NOTE: JULY 24, 2023@09:39 ENTRY DATE: JULY 24, 2023@09:39:16 AUTHOR: SADIQ SERRATO COSIGNER: URGENCY: STATUS: COMPLETED Advance Directive Screen MH AD: Patient does not have a completed advance directive on file at any facility, [facility] or [facility]. S/he is not interested in completing one at this time. The patient received education about Advance Directives and written notification of his/her rights. Suicide Screen: C-SSRS Screening [place]-Suicide Severity Rating Scale (C-SSRS Screener) 1. Over the past month, have you wished you were or wished you could go to sleep and not wake up? No 2. Over the past month, have you had any actual thoughts of killing yourself? No 3. Over the past month, have you been thinking about how you might do this? Response not required due to responses to other questions. 4. Over the past month, have you had these thoughts and had some intention of acting on them? Response not required due to responses to other questions. 5. Over the past month, have you started to work out or worked out the details of how to kill yourself? Response not required due to responses to other questions. 6. If yes, at any time in the past month did you intend to carry out this plan? Response not required due to responses to other questions. 7. In your lifetime, have you ever done anything, started to do anything, or prepared to do anything to end your life (for example, collected pills, obtained a gun, gave away valuables, went to the roof but didn't jump)? No 8. If YES, was this within the past 3 months? Response not required due to responses to other questions. Homelessness/Food Insecurity Screen: In the past 2 months, have you been living in stable housing that you own, rent, or stay in as part of a household? Yes - Living in stable housing. Are you worried or concerned that in the next 2 months you may NOT have stable housing that you own, rent, or stay in as part of a household? No - Not worried about housing near future [facility] [place] reports the following: Within the past 12 months, you worried whether your food would run out before you got money to buy more. Never true Within the past 12 months, the food you bought just didn't last and you didn't have money to get more. Never true Depression Screening: Perform PHQ-2 A PHQ-2 screen was performed. The score was 0 which is a negative screen for depression. Over the past two weeks, how often have you been bothered by the following problems? 1. Little interest or pleasure in doing things Not at all 2. Feeling down, depressed, or hopeless Not at all Tobacco Use Screening: The patient is a former tobacco user. The patient quit fifteen or more years ago. Alcohol Use Screen (AUDIT-C): Alcohol Screen: SCREEN FOR ALCOHOL (AUDIT-C) An alcohol screening test (AUDIT-C) was negative (score=1). 1. How often did you have a drink containing alcohol in the past year? Consider a drink to be a 12 ounce can or bottle of regular beer, 8 ounces of malt liquor, a 5 ounce glass of table wine, or a 1.5 ounce shot of liquor (like scotch, gin, or vodka). Monthly or less 2. How many drinks containing alcohol did you have on a typical day when you were drinking in the past year? One or two drinks 3. How often did you have six or more drinks on one occasion in the past year? Never /es/ Sadiq Serrato, Health Supervisor Wet Room ELECTRONIC PUBLISHING SPECIALIST,PRIMARY CARE Signed: 07/24/2023 09:42 SADIQ SERRATO [facility]
--- OUTSIDE RECORDS SUMMARY | 2024-05-04 02:25 | XMS_ITS | Encounter Summary ---
Author Name [facility] [place] [facility] [place] Address [address] [place] [id number] Care Team Providers Care Executive Administrative Assistant Name Role Phone JOHNY GOMEZ Primary Care [...] Carr's Name Patient's Relationship to Policy Carr ANTHEM BCBS CT FEDERAL PREFERRED PROVIDER ORGANIZAT ION (PPO) STAND JESSE FAMIL Y Mar 07, 2000 105 [id number] [phone] JAY KRISHNA PATIENT ANTHEM BCBS FEDERAL PREFERRED PROVIDER ORGANIZAT ION (PPO) STAND JESSE FAMIL Y Mar 07, 2000 105 [id number] JAY KRISHNA PATIENT ANTHEM BCBS FEDERAL PREFERRED PROVIDER ORGANIZAT ION (PPO) STAND JESSE SELF Mar 07, 2000 105 [id number] 15 JAY KRISHNA PATIENT BCBS [place] FEP PREFERRED PROVIDER ORGANIZAT ION (PPO) STAND JESSE FAMIL Y Mar 07, 2000 105 [id number] 15 JAY KRISHNA PATIENT [place] PREFERRED PROVIDER ORGANIZAT ION (PPO) STAND JESSE FAMIL Y Mar 07, 2000 105 [id number] 15 JAY KRISHNA PATIENT [place] F[place] DENTAL DENTAL INSURANCE STAND JESSE Mar 07, 2000 DENTAL [id number] JAY KRISHNA PATIENT [place] F[place] PREFERRED PROVIDER ORGANIZAT ION (PPO) STAND JESSE FAMIL Y Mar 07, 2000 105 [id number] 15 JAY KRISHNA PATIENT [place] FEDERAL PREFERRED PROVIDER ORGANIZAT ION (PPO) STAND JESSE FAMIL Y Mar 07, 2000 [id number] 15 JAY KRISHNA PATIENT [place] FEP BCBS PRESCRIPT ION CAREM ARK FEPRX PLAN Mar 07, 2000 [id number] JAY KRISHNA PATIENT [place] FEPRX PLAN PRESCRIPT ION CAREM ARK FEPRX Feb 23, 2010 [id number] JAY KRISHNA PATIENT [place] FEPRX PLAN PRESCRIPT ION CAREM ARK FEPRX Mar 07, 2000 [id number] JAY KRISHNA PATIENT [place]-F EP BCBS PRESCRIPT ION BCBS FEP PLAN Feb 23, 2010 [id number] JAY KRISHNA PATIENT [place]-F EP BCBS PRESCRIPT ION FEP CAREM ARK Feb 23, 2010 [id number] JAY KRISHNA PATIENT [place]-F EP BCBS PRESCRIPT ION BCBS FEP Feb 23, 2010 [id number] JAY KRISHNA PATIENT MEDICARE ([facility]) MEDICARE () PART A May 25, 2011 PART A [id number] [phone] JAY KRISHNA PATIENT MEDICARE ([facility]) MEDICARE () PART A May 25, 2011 PART A [id number] [facility] [phone] JAY KRISHNA PATIENT MEDICARE ([facility]) MEDICARE () PART A May 25, 2011 PART A [id number] JAY KRISHNA PATIENT MEDICARE ([facility]) MEDICARE () PART A May 25, 2011 PART A [id number] [phone] JAY KRISHNA PATIENT MEDICARE (WNR) MEDICARE (M) PART A May 25, 2011 PART A [id number] [facility] JAY KRISHNA PATIENT MEDICARE (WNR) MEDICARE (M) PART A May 25, 2011 PART A [id number] [facility] [phone] JAY KRISHNA PATIENT MEDICARE (WNR) MEDICARE (M) PART A May 25, 2011 PART A [id number] JAY KRISHNA PATIENT MEDICARE (WNR) MEDICARE (M) PART A May 25, 2011 PART A [id number] [facility] JAY KRISHNA PATIENT Selected Encounter This section includes the information on record at [place] for the Encounter. Date/Time Encounter Type Encounter Description Reason Provider Source May 02, 2024 10:07 AM Outpatient Encounter EVENT (HISTORICAL) RADHA MARTINEZ MD E Encounter Template Text not used by [place] Plan of Treatment: Future Appointments (+ 6 months) and Future Tests (+/- 45 days) The Plan of Treatment section includes future care activities for the patient from all [place] treatmentfacilities. This section includes future appointments and future orders which are active, pending or scheduled. Future Appointments This section includes appointments that were scheduled to occur 6 months from the date of the Encounter, up to a maximum of 20 appointments. The data comes from all [place] treatment facilities. Appointment Date/Time Appointment Type Appointme nt Facility Name May 03, 2024 08:00 AM AMBULATORY - MEDICINE [place] [facility] [place] [facility] May 10, 2024 10:00 AM AMBULATORY - MEDICINE [place] [facility] [place] [facility] June 29, 2024 10:30 AM AMBULATORY - MEDICINE [place] [facility] [place] [facility] Aug 08, 2024 09:30 AM AMBULATORY - MEDICINE [place] [facility] [place] [facility] Aug 09, 2024 11:00 AM AMBULATORY - MEDICINE [place] [facility] [place] [facility] Oct 26, 2024 10:00 AM AMBULATORY - MEDICINE [place] [facility] [place] [facility] Active, Pending, and Scheduled Orders This section includes a listing of several types of active, pending, and scheduled orders, including clinic medications orders, diagnostic test orders, procedure orders and consult orders; where the start date of the order is 45 days before the date of the Encounter or 45 days after the date of theEncounter. The data comes from all [place] treatment facilities. Test Date/Time Test Type Test Details Facility Name Apr 13, 2024 12:00 AM Laboratory - Chemi stry Order BASIC METABOLIC PANEL (non-fasting) BLOOD (SST-SERUM) SP [facility] Apr 25, 2024 12:55 PM Consult Order COMMUNITY CARE-DENTAL GENERAL Cons Manager [employer] [facility] Apr 27, 2024 12:00 AM Laboratory - Chemi stry Order SURGICAL PATH ORDER SURG PATH SPEC. UNKNOWN SP [facility] Apr 27, 2024 03:38 PM Consult Order SURGERY/CW M OUTPT Cons Manager [employer] [facility] May 03, 2024 04:19 PM Consult Order EYEGLASS R EQUEST - 4 SIGHT Cons Manager [employer] [facility] May 03, 2024 04:19 PM Consult Order EYEGLASS R EQUEST - 4 SIGHT Cons Manager [employer] [facility] May 03, 2024 04:19 PM Consult Order EYEGLASS R EQUEST - 4 SIGHT Cons Manager [employer] [facility] Social History: Smoking Status (Most current) and Tobacco Use (All prior to encounter date) This section includes the most current, and the historical, smoking and tobacco- related health factors from the [place] facility where the Encounter took place. Current Smoking Status This section includes the most current smoking, or tobacco-related health factor, from the [place] facility where the Encounter took place. Date/Time Current Smoking Status Comment Facil ity Sep 12, 2021 06:00 AM NSG NO TOBACCO USE PAST 30 DAYS [facility] Pathology Reports: +/- 30 days of the [...] the Encounter. The data comes from all [place] treatment facilities. Date/Time Pathology Report Provider Source May 02, 2024 10:07 AM LR SURGICAL PATHOLOGY REPORT: LOCAL TITLE: LR SURGICAL PATHOLOGY REPORT STANDARD TITLE: PATHOLOGY REPORT DATE OF NOTE: MAY 02, 2024@10:07:13 ENTRY DATE: MAY 02, 2024@10:07:13 AUTHOR: RADHA MARTINEZ MD EXP COSIGNER: URGENCY: STATUS: COMPLETED $APHDR Reporting Lab: [facility] [CLIA# [id number]] [address] [place] [address] - - - - - - - [...] (Received Apr 28, 2024): A:LEFT UPPER BACK SKIN([id number]) B:RIGHT UPPER BACK SKIN([id number]) - - - - - - - [...] - - - PATHOLOGY REPORT Accession No. [facility] 1510 - - - - - - - - - - - - - - - - - - - - - - - - - - - - - - - - - - - - - - - - GROSS DESCRIPTION: The specimen is recieved from [facility], [facility] 8150;A;1;KRISHNA,B A. Received in formalin labeled with the [...] Performing Laboratory: Surgical Pathology Report Performed By: [facility] [CLIA# [id number]] [address] [place] [address] $FTR - - - - - - [...] - - JAY KRISHNA STANDARD FORM 515 ID:[id number] SEX:M :1960 AGE: 64 LOC:*[facility] PCP: /daniela/ Radha Martinez MD, Charline Board Certified Dermatopathologist Signed: 05/02/2024 10:07 RADHA MARTINEZ MD [facility] May 02, 2024 10:04 AM LR SURGICAL PATHOLOGY REPORT: LOCAL TITLE: LR SURGICAL PATHOLOGY REPORT STANDARD TITLE: PATHOLOGY DIAGNOSTIC STUDY REPORT DATE OF NOTE: MAY 02, 2024@10:04:16 ENTRY DATE: MAY 02, 2024@10:04:16 AUTHOR: RADHA MARTINEZ MD EXP COSIGNER: URGENCY: STATUS: COMPLETED $APHDR Reporting [facility] [CLIA# [id number]] [address] [place] [address] - - - - - - - [...] - - PATHOLOGY REPORT Accession No. [id number] - - - - - - [...] - - PATHOLOGY REPORT Accession No. [facility] [id number] - - - - - - - - - - - - - - - - - - - - - - - - - - - - - - - - - - - - - - - - Gross description: The specimen is recieved from [facility] [place], [facility] 1510;A;1;KRISHNA,Luis A. Received in formalin labeled [...] cross section in cassette B2. GIA Pacheco ([facility]) 04/28/2024 A. Skin, left upper back: [...] for further evaluation and treatment. CPT codes 81368a6 /es/ RADHA MARTINEZ MD Board Certified Dermatopathologist Signed May 02, 2024@10:04 Performing Laboratory: Surgical Pathology Report Performed By: [facility] [CLIA# [id number]] [address] [place] [phone] $FTR - - - - - - [...] - - JAY KRISHNA STANDARD FORM 515 ID:[id number] SEX:M :1960 AGE: 64 LOC:[facility] DERMATOLOGY SOLID SURFACE FABRICATOR 1 PM PCP: Johny Gomez, SOLID SURFACE FABRICATOR /es/ RADHA MARTINEZ MD Board Certified Dermatopathologist Signed: 05/02/2024 10:04 RADHA MARTINEZ MD [facility] Encounter Notes: All associated encounter notes This section contains the clinical notes associated to the Encounter. Date/Time Encounter Note(s) Provider Source May 02, 2024 10:07 AM PATHOLOGY REPORT: LOCAL TITLE: LR SURGICAL PATHOLOGY REPORT STANDARD TITLE: PATHOLOGY REPORT DATE OF NOTE: MAY 02, 2024@10:07:13 ENTRY DATE: MAY 02, 2024@10:07:13 AUTHOR: RADHA MARTINEZ MD EXP COSIGNER: URGENCY: STATUS: COMPLETED $APHDR Reporting Lab: [facility] [CLIA# [id number]] [address] [place] [phone] - - - - - - - [...] (Received Apr 28, 2024): A:LEFT UPPER BACK SKIN([id number]) B:RIGHT UPPER BACK SKIN([id number]) - - - - - - - [...] - - - - POSTOPERATIVE DIAGNOSIS: Surgeon/physician: =-=-=-=-=-=-=-=-=-=-=-=-=-=-= -=-=-=-=-=-=-=-=-=-=-=-=-=-=- =-=-=-=-=-=-=-=-=-=-= - - - - - - - - - - - - - - - - - - - - - - - - - - - - - - - - - - - - - - - - PATHOLOGY REPORT Accession No. [facility] 1509 - - - - - - - - - - - - - - - - - - - - - - - - - - - - - - - - - - - - - - - - GROSS DESCRIPTION: The specimen is recieved from [facility], [facility] 4230;A;1;Luis KRISHNA. Received in formalin labeled with the [...] in cassette B2. GIA Pacheco ([facility]) 04/28/2024 /Charline Mg MD Board Certified Dermatopathologist Signed May 02, 2024@10:07 Performing Laboratory: Surgical Pathology Report Performed By: [facility] [CLIA# [id number]] [address] [place] [phone] $FTR - - - - - - [...] - - JAY KRISHNA STANDARD FORM 515 ID:[id number] SEX:M :1960 AGE: 64 LOC:*[facility] PCP: /Charline Mg MD Board Certified Dermatopathologist Signed: 05/02/2024 10:07 RADHA MARTINEZ MD [facility]
--- OUTSIDE RECORDS SUMMARY | 2024-05-04 02:25 | XMS_ITS ---
Author Name [facility] Address [address] [place] [address] Care Team Providers Care Pharmacist Assistant Name Role Phone JUAN OBRIEN Primary Care Provider Unavaileddie [facility] Insurance Providers: All historical and current [...] JESSE FAMIL Y Mar 07, 2000 105 [id number] [phone] JAY KRISHNA PATIENT ANTHEM BCBS FEDERAL PREFERRED PROVIDER ORGANIZAT ION (PPO) STAND JESSE FAMIL Y Mar 07, 2000 105 [id number] JAY KRISHNA PATIENT ANTHEM BCBS FEDERAL PREFERRED PROVIDER ORGANIZAT ION (PPO) STAND JSESE SELF Mar 07, 2000 105 [id number] JAY KRISHNA PATIENT BCBS [place] FEP PREFERRED PROVIDER ORGANIZAT ION (PPO) STAND JESSE FAMIL Y Mar 07, 2000 105 [id number] JAY KRISHNA PATIENT [place] PREFERRED PROVIDER ORGANIZAT ION (PPO) STAND JESSE FAMIL Y Mar 07, 2000 105 [id number] JAY KRISHNA PATIENT [place] DENTAL DENTAL INSURANCE STAND JESSE Mar 07, 2000 DENTAL [id number] [phone] JAY KRISHNA PATIENT [place] PREFERRED PROVIDER ORGANIZAT ION (PPO) STAND JESSE FAMIL Y Mar 07, 2000 105 [id number] [phone] JAY KRISHNA PATIENT [place] FEDERAL PREFERRED PROVIDER ORGANIZAT ION (PPO) STAND JESSE FAMIL Y Mar 07, 2000 105 [id number] JAY KRISHNA PATIENT [place] FEP BCBS PRESCRIPT ION CAREM ARK FEPRX PLAN Mar 07, 2000 [id number] JAY KRISHNA PATIENT [place] FEPRX PLAN PRESCRIPT ION CAREM ARK FEPRX Feb 23, 2010 [id number] JAY KRISHNA PATIENT [place] FEPRX PLAN PRESCRIPT ION CAREM ARK FEPRX Mar 07, 2000 [id number] JAY KRISHNA PATIENT [place]-F [place] BCBS PRESCRIPT ION BCBS FEP PLAN Feb 23, 2010 [id number] JAY KRISHNA PATIENT [place]-F EP BCBS PRESCRIPT ION FEP CAREM ARK Feb 23, 2010 [id number] JAY KRISHNA PATIENT [place]-F EP BCBS PRESCRIPT ION BCBS FEP Feb 23, 2010 [id number] JAY KRISHNA PATIENT MEDICARE ([facility]) MEDICARE () PART A May 25, 2011 PART A [id number] [facility] JAY KRISHNA PATIENT MEDICARE ([facility]) MEDICARE () PART A May 25, 2011 PART A [id number] [facility] JAY KRISHNA PATIENT MEDICARE ([facility]) MEDICARE () PART A May 25, 2011 PART A [id number] [facility] JAY KRISHNA PATIENT MEDICARE (WNR) MEDICARE (M) PART A May 25, 2011 PART A [id number] [phone] JAY KRISHNA PATIENT MEDICARE (WNR) MEDICARE (M) PART A May 25, 2011 PART A [id number] [facility] JAY KRISHNA PATIENT MEDICARE (WNR) MEDICARE (M) PART A May 25, 2011 PART A [id number] [facility] JAY KRISHNA PATIENT MEDICARE (WNR) MEDICARE (M) PART A May 25, 2011 PART A [id number] JAY KRISHNA PATIENT MEDICARE (WNR) MEDICARE (M) PART A May 25, 2011 PART A [id number] [facility] [phone] JAY KRISHNA PATIENT Selected Encounter This section includes the information on record at [place] for the Encounter. 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 Apr 14, 2024 01:51 PM SECONDARY Nail dystrophy [facility] Linus [facility] Plan of Treatment: Future Appointments (+ [...] 27, 2024 09:30 AM AMBULATORY - MEDICINE [facility] [place] [facility] Apr 27, 2024 10:00 AM AMBULATORY - MEDICINE [facility] [place] [facility] Apr 28, 2024 09:30 AM AMBULATORY - MEDICINE [facility] [place] [facility] May 03, 2024 08:00 AM AMBULATORY - MEDICINE [facility] [place] [facility] May 10, 2024 10:00 AM AMBULATORY - MEDICINE [facility] [place] [facility] June 29, 2024 10:30 AM AMBULATORY - MEDICINE [facility] [place] [facility] Aug 08, 2024 09:30 AM AMBULATORY - MEDICINE [facility] [place] [facility] Aug 09, 2024 11:00 AM AMBULATORY - MEDICINE [facility] [place] [facility] Active, Pending, and Scheduled Orders [...] BLOOD (SST-SERUM) SP [facility] [place] [facility] Apr 25, 2024 12:55 PM Consult Order COMMUNITY CARE-DENTAL GENERAL Cons Designer And Patternmaker's Choice [facility] [place] [facility] Apr 27, 2024 12:00 AM Laboratory - Chemi stry Order SURGICAL PATH ORDER SURG PATH SPEC. UNKNOWN SP [facility] [place] [facility] Apr 27, 2024 03:38 PM Consult Order SURGERY/CW M OUTPT Cons Designer And Patternmaker's Choice [facility] [place] [facility] May 03, 2024 04:19 PM Consult Order EYEGLASS R EQUEST - 4 SIGHT Cons Designer And Patternmaker's Choice [facility] [place] [facility] May 03, 2024 04:19 PM Consult Order EYEGLASS R EQUEST - 4 SIGHT Cons Designer And Patternmaker's Choice [facility] [place] [facility] May 03, 2024 04:19 PM Consult Order EYEGLASS R EQUEST - 4 SIGHT Cons Designer And Patternmaker's Choice [facility] [place] [facility] Social History: Smoking Status (Most [...] took place. Date/Time Current Smoking Status Comment [facility] it July 24, 2023 10:00 AM VA-TOBACCO FORMER USER [facility] [place] [facility] Tobacco Use History This section includes a history of the smoking, or tobacco-related health factors, that were collected on or before the date of the Encounter. The data comes from the [place] facility where the Encounter took place. Date/Time Smoking Status/Tobac co Use Comment Facility July 24, 2023 10:00 AM VA-TOBACCO QUIT 15 YRS OR MORE [facility] [place] [facility] July 14, 2022 03:30 PM VA-TOBACCO FORMER USER [facility] [place] [facility] July 14, 2022 03:30 PM VA-TOBACCO QUIT 15 YRS OR MORE [facility] [place] [facility] Aug 05, 2021 01:00 PM VA-TOBACCO FORMER USER [facility] [place] [facility] Aug 05, 2021 01:00 PM VA-TOBACCO QUIT 5 TO < 15 YRS [facility] [place] [facility] Sep 09, 2019 01:25 PM VA-TOBACCO FORMER USER [facility] [place] [facility] Sep 09, 2019 01:25 PM VA-TOBACCO QUIT 5 TO < 15 YRS [facility] [place] [facility] Dec 04, 2017 10:18 AM VA-TOBACCO FORMER USER [facility] [place] [facility] Dec 04, 2017 10:18 AM VA-TOBACCO QUIT 5 TO < 15 YRS [facility] [place] [facility] May 29, 2017 09:09 AM QUIT TOBACCO USE > 7 YEARS AGO [facility] [place] [facility] Apr 23, 2015 08:21 AM QUIT TOBACCO USE > 7 YEARS AGO [facility] [place] [facility] Apr 23, 2015 08:21 AM QUIT TOBACCO USE 1-7 YEARS AGO [facility] [place] [facility] Mar 06, 2011 11:06 AM QUIT TOBACCO USE 1-7 YEARS AGO [facility] [place] [facility] Apr 08, 2010 10:56 AM CURRENT SMOKER cigar [facility] in [facility] [place] Apr 08, 2010 10:56 AM V1-PT DECLINES REF TO TOBACCO CESS PRGM [facility] [place] [facility] Apr 08, 2010 10:56 AM V1-PT DECLINES TOBACCO CESSATION MEDS [facility] [place] [facility] Apr 08, 2010 10:56 AM V1-PT READY TO QUIT TOBACCO USE [facility] [place] [facility] Feb 21, 2009 09:16 AM CURRENT SMOKER cigar once in a while [facility] [place] [facility] Feb 21, 2009 09:16 AM V1-PT DECLINES REF TO TOBACCO CESS [facility] [place] [facility] Feb 21, 2009 09:16 AM V1-PT DECLINES TOBACCO CESSATION MEDS [facility] [place] [facility] Feb 21, 2009 09:16 AM V1-PT THINKING ABOUT QUIT TOBACCO USE [facility] [place] [facility] Dec 16, 2007 09:15 AM QUIT TOBACCO USE 1-7 YEARS AGO [facility] [place] [facility] Apr 01, 2007 11:08 AM QUIT TOBACCO USE 1-7 YEARS AGO [facility] [place] [facility] Sep 28, 2006 08:52 AM QUIT TOBACCO USE IN PAST [facility] [place] [facility] Apr 21, 2006 10:31 AM QUIT TOBACCO USE IN PAST YEAR August 2005 [facility] [place] [facility] Dec 16, 2005 10:02 AM CURRENT SMOKER OCCASIONAL CIGAR [facility] [place] [facility] May 19, 2001 03:50 PM CURRENT SMOKER see below [facility] [place] [facility] Encounter Notes: All associated encounter notes This section contains the clinical notes associated to the Encounter. Date/Time Encounter Note(s) Provider Source Mar 22, 2024 08:46 AM PODIATRY NOTE: LOCAL TITLE: PODIATRY NOTE STANDARD TITLE: PODIATRY NOTE DATE OF NOTE: MAR 22, 2024@08:46 ENTRY DATE: MAR 22, 2024@08:46:33 AUTHOR: DAGOBERTO POZO COSIGNER: URGENCY: STATUS: COMPLETED Podiatry High Risk Foot Encounter [facility] provider: Dagoberto Pozo [facility] Date: Mar 22, 2024 JAY KRISHNA MALE [id number] [place] [address] FROM Sep TO Aug Primary Care:JUAN OBRIEN History of chief complaint: Patient is a 63-year-old male with history of DM2 peripheral neuropathy and Charcot foot deformity on the right side 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 Patient has done well with below-knee prosthesis, and has not had any significant problems with the left foot. Last seen 6 mons ago. Returns today for follow- up. No significant complaints but endorses distal loss of sensation in toes of left foot and nail dystrophy. Subjective:Doing well. no complaints. Diabetic/ HRF/ PVD LE History: [ ] pvd [ ] pvd interventions [X] neuropathy [ ] meds: [ ] wound active [ ] infection active [X] wound history yes [X] amputation hx-TKA right 2017 [ ] deformity [X] charcot [ ] surgical deformity intervention PMH list CPRS: Active problems - Computerized Problem List is the source for the followin. Long-term current use of anticoagulant 2. Atrial fibrillation 3. Primary erectile dysfunction 4. History of amputation of leg above ankle 5. History of cholecystectomy 6. Obstructive sleep apnea syndrome 7. Diabetic foot ulcer 8. status post knee replacement 9. Opiate Dependence * 10. Diabetes mellitus (SNOMED CT 80041390) 11. Atrial fibrillation (SNOMED CT 61053953) 12. Benign essential hypertension (SNOMED CT 1856536) 13. Family History of Ischemic Heart Disease 14. Obesity (SNOMED CT 460005281) 15. Hyperlipidemia 16. Chronic Low Back Pain 17. Peripheral Neuropathy Active Out Patient medications: Active Outpatient Medications (including Supplies): Active Outpatient Medications Status 1) CARBOXYMETHYLCELLULOSE NA 0.5% OPH SOLN INSTILL 1 ACTIVE DROP INTO EACH EYE FOUR TIMES A DAY FOR DRY EYE 2) HYDROCHLOROTHIAZIDE 25MG TAB TAKE ONE TABLET BY MOUTH ACTIVE EVERY DAY TO PREVENT FLUID/CONTROL BLOOD PRESSURE 3) METOPROLOL SUCCINATE 50MG SA TAB TAKE THREE TABLETS ACTIVE BY MOUTH ONCE DAILY FOR BLOOD PRESSURE/HEART 4) METRONIDAZOLE 0.75% TOP GEL APPLY SMALL AMOUNT ACTIVE TOPICALLY TWICE DAILY FOR ACNE ROSACEA 5) OMEPRAZOLE 20MG EC CAP TAKE ONE CAPSULE BY MOUTH ACTIVE (S) TWICE DAILY BEFORE A MEAL FOR GASTROESOPHAGEAL REFLUX DISEASE 6) RIVAROXABAN 20MG TAB TAKE ONE TABLET BY MOUTH EVERY ACTIVE (S) EVENING WITH FOOD 7) SILDENAFIL CITRATE 100MG TAB TAKE ONE TABLET BY MOUTH ACTIVE ONCE DAILY TAKE 1 HOUR PRIOR TO SEXUAL ACTIVITY 8) SIMVASTATIN 80MG TAB TAKE ONE-HALF TABLET BY MOUTH ACTIVE EVERY EVENING FOR CHOLESTEROL 9) VALSARTAN 80MG TAB TAKE ONE TABLET BY MOUTH ONCE ACTIVE DAILY Active Non-VA Medications Status 1) Non-VA OXYCODONE HCL 5MG TAB NOT SA 5MG BY ACTIVE MOUTH TWICE A WEEK NEEDED 2) Non-VA SEMAGLUTIDE (OZEMPIC) PA-F INJ,SOLN ACTIVE SUBCUTANEOUSLY 11 Total Medications Imaging reports: Lab Data: CREATININE-EGFR 08/11/23 08:54 0.86 01/23/23 07:40 0.95 No Data Available for EGFR 1 yr HEMOGLOBIN A1C TREND Collection DT Spec HGBA1c 08/11/2023 08:54 BLOOD 5.0 01/23/2023 07:40 BLOOD 5.5 06/02/2022 07:57 BLOOD 6.4 H 02/03/2022 07:46 BLOOD 6.4 H 08/01/2021 10:56 BLOOD 5.8 H ALBUMIN Collection DT Specimen Test Name Result Units Ref Range 08/11/2023 08:54 SERUM ALBUMIN 3.9 g/dL 3.5 - 5.0 BMI:BMI: 41.5 PE:General: Well-appearing 64-year-old male neatly dressed pleasant cooperative awake alert oriented x3, ambulating with below-knee prosthesis on the right. Left foot with irregular irregular but biphasic audible Doppler DP and PT with warm pink skin well-hydrated. Sensation is diminished to light touch pain and temperature and patient is insensate to Mary Alice Edward monofilament in the distal toes 1 through 5 left. Foot structure is mild pes planus There is no hallux valgus varus or hammertoes present Integument unremarkable skin is intact no high pressure calluses or lesions present Hallux nail is dystrophic thickened and discolored debrided down to intact nailbed, lesser nails minimally dystrophic, fifth toenail minimally formed. webs clear. PAVE:3 Impression:-Well-controlled diabetic male with history of Charcot deformity and right bk amputation procedure secondary to chronic deformity and subsequent infection. He is doing quite well with below-knee prosthesis and engages in normal activities of life including riding a motorcycle Left foot is stable today except for nails needing trimming. Plan: -Aseptic trimming of nails left 1 through 5 without incident using sterile instrumentation which was reprocessed according to [facility] policy for RME Recall: 6 months Return sooner if any clinical signs of infection such as redness, swelling drainage fever chills nausea , or go to nearest hospital emergency / urgent care for evaluation. -As part of the service the pertinent primary care, specialty care and urgent care notes have been reviewed as well as the patient's medication list, problem list, and current imaging as well as past imaging, laboratory data and other pertinent contributory consults. -All new and discontinued medications have been discussed in detail with the patient and or caregiver, including indications for additions and deletions, as well as possible side effects, interactions as foreseen, and risk of not taking as prescribed If applicable, the patient was advised clearly on application of wound care agents how to apply and when to apply. The patient was able to recitethis information back to the prescriber with good understanding and agreed to the plan of care as indicated above. -Plan of care discuss with the patient and or caregiver, including medical decision making which includes discussion of abnormal lab results, imaging and other diagnostic modalities as well as results of the physical exam and specialty sales consultant opinions and recommendations as sought. Alternatives to surgery or outlined care above as appropriate have also been discussed. -The patient/ caregiver has displayed good understanding of above and with no further questions at this time. Patient is aware of next appointment and agrees to follow-up interval. Patient agrees to seek sooner follow up if any irregular events occur in between such as cardinal signs of infection, increased pain or deformity. -The on this visit was given information [employer] service and encouraged to enroll if not already having done so. /daniela/ DAGOBERTO POZO DPM PODIATRY ATTENDING Signed: 03/22/2024 16:39 DAGOBERTO POZO [facility]
--- OUTSIDE RECORDS SUMMARY | 2024-05-04 02:25 | XMS_ITS | Encounter Summary ---
Author Name [facility] [place] [facility] [place] Address [address] [place] [address] Care Team Providers Care Cloth Opener Hand Name Role Phone JUAN OBRIEN Primary Care Provider Unavailed[facility] Insurance Providers: All historical and current Section [...] JESSE FAMIL Y Mar 07, 2000 [id number] [phone] JAY KRISHNA PATIENT ANTHEM BCBS FEDERAL PREFERRED PROVIDER ORGANIZAT ION (PPO) STAND JESSE FAMIL Y Mar 07, 2000 105 [id number] JAY KRISHNA PATIENT ANTHEM BCBS FEDERAL PREFERRED PROVIDER ORGANIZAT ION (PPO) STAND JESSE SELF Mar 07, 2000 105 [id number] JAY KRISHNA PATIENT BCBS [place] FEP PREFERRED PROVIDER ORGANIZAT ION (PPO) STAND JESSE FAMIL Y Mar 07, 2000 105 [id number] JAY KRISHNA PATIENT [place] PREFERRED PROVIDER ORGANIZAT ION (PPO) STAND JESSE FAMIL Y Mar 07, 2000 105 [id number] JAY KRISHNA PATIENT [place] DENTAL DENTAL INSURANCE STAND JESSE Mar 07, 2000 DENTAL [id number] JAY KRISHNA PATIENT [place] F[place] PREFERRED PROVIDER ORGANIZAT ION (PPO) STAND JESSE FAMIL Y Mar 07, 2000 105 [id number] JAY KRISHNA PATIENT [place] FEDERAL PREFERRED PROVIDER ORGANIZAT ION (PPO) STAND JESSE FAMIL Y Mar 07, 2000 105 [id number] JAY KRISHNA PATIENT [place] FEP BCBS PRESCRIPT ION CAR[place] FEPRX PLAN Mar 07, 2000 [id number] JAY KRISHNA PATIENT [place] FEPRX PLAN PRESCRIPT ION CAR[place] FEPRX Feb 23, 2010 [id number] JAY KRISHNA PATIENT [place] FEPRX PLAN PRESCRIPT ION CAREM [place] FEPRX Mar 07, 2000 [id number] JAY KRISHNA PATIENT [place]-F EP BCBS PRESCRIPT ION BCBS FEP PLAN Feb 23, 2010 [id number] JAY KRISHNA PATIENT [place]-F EP BCBS PRESCRIPT ION BCBS FEP Feb 23, 2010 [id number] JAY KRISHNA PATIENT [place]-F EP BCBS PRESCRIPT ION FEP CAREM ARK Feb 23, 2010 [id number] JAY KRISHNA PATIENT MEDICARE ([facility] MEDICARE () PART A May 25, 2011 PART A [id number] [facility] JAY KRISHNA PATIENT MEDICARE ([facility]) MEDICARE () PART A May 25, 2011 PART A [id number] [facility] JAY KRISHNA PATIENT MEDICARE ([facility]) MEDICARE () PART A May 25, 2011 PART A [id number] [facility] JAY KRISHNA PATIENT MEDICARE (WNR) MEDICARE (M) PART A May 25, 2011 PART A [id number] [facility] JAY KRISHNA PATIENT MEDICARE (WNR) MEDICARE (M) PART A May 25, 2011 PART A [id number] [phone] JAY KRISHNA PATIENT MEDICARE (WNR) MEDICARE (M) PART A May 25, 2011 PART A [id number] [facility] [id number] JAY KRISHNA PATIENT MEDICARE (WNR) MEDICARE (M) PART A May 25, 2011 PART A [id number] [facility] [phone] JAY KRISHNA PATIENT MEDICARE (WNR) MEDICARE (M) PART A May 25, 2011 PART A [id number] [facility] JAY KRISHNA PATIENT Selected Encounter This section includes the information on record at [place] for the Encounter. Date/Time Encounter Type Encounter Description Reason Provider Source Mar 16, 2024 10:00 AM MTMS BY PHARM NELIA 15 MIN CLINICAL PHARMACY ICD-10-CM I10 Essential (primary) hypertension ALEJANDRA SNYDER [facility] Encounter Template Text not used by [place] Assessments - Encounter Diagnoses This section includes the primary and secondary diagnoses documented for the Encounter. Date/Time Primary/Secondary Diagnosis Diagnosis Name Provider Source Mar 16, 2024 12:33 PM PRIMARY Essential (primary) hypertension ALEJANDRA SNYDER [facility] Plan of Treatment: Future Appointments (+ 6 months) and Future Tests (+/- 45 days) The Plan of Treatment section includes future care activities for the patient from all [place] treatmentfacilities. This section includes future appointments and future orders which are active, pending or scheduled. Future Appointments This section includes appointments that were scheduled to occur 6 months from the date of the Encounter, up to a maximum of 20 appointments. The data comes from all [place] treatment facilities. Appointment Date/Time Appointment Type Appointme nt Facility Name Mar 22, 2024 08:30 AM AMBULATORY - MEDICINE [facility] Apr 27, 2024 09:30 AM [facility] Apr 27, 2024 10:00 AM [facility] Apr 28, 2024 09:30 AM AMBULATORY - MEDIC[facility] [place] [facility] [place] [facility] May 03, 2024 08:00 AM AMBULATORY - MEDICINE [place] [facility] [place] [facility] May 10, 2024 10:00 AM AMBULATORY - MEDICINE [place] [facility] [place] [facility] June 29, 2024 10:30 AM AMBULATORY - MEDICINE [place] [facility] [place] [facility] Aug 08, 2024 09:30 AM AMBULATORY - MEDICINE [place] [facility] [place] [facility] Aug 09, 2024 11:00 AM AMBULATORY - MEDICINE [place] [facility] [place] [facility] Active, Pending, and Scheduled Orders This section includes a listing of several types of active, pending, and scheduled orders, including clinic medications orders, diagnostic test orders, procedure orders and consult orders; where the start date of the order is 45 days before the date of the Encounter or 45 days after the date of theEncounter. The data comes from all [place] treatment facilities. Test Date/Time Test Type Test Details Facility Name Apr 13, 2024 12:00 AM Laboratory - Chemi stry Order BASIC METABOLIC PANEL (non-fasting) BLOOD (SST-SERUM) SP [place] [facility] [place] [facility] Apr 25, 2024 12:55 PM Consult Order COMMUNITY CARE-DENTAL GENERAL Cons Mycologist's Choice [facility] [place] [facility] Apr 27, 2024 12:00 AM Laboratory - Chemi stry Order SURGICAL PATH ORDER SURG PATH SPEC. UNKNOWN SP [facility] [place] [facility] Apr 27, 2024 03:38 PM Consult Order SURGERY/CW M OUTPT Cons Mycologist's Choice [facility] [place] [facility] Vital Signs: All taken on the encounter date This section contains inpatient and outpatient Vital Signs collected on the date of the Encounter. Date/Time Temperature Pulse Blood Pressure Respiratory Rate SP02 Pain Height Weight Body Mass Index Source Mar 16, 2024 10:16 AM 75 156/113 [facility] [place] [facility] Mar 16, 2024 10:13 AM 114 145/102 [facility] [place] [facility] [facility] Mar 16, 2024 10:12 AM 84 155/105 [facility] [place] [facility] [facility] Social History: Smoking Status (Most current) and Tobacco Use (All prior to encounter date) This section includes the most current, and the historical, smoking and tobacco- related health factors from the [place] facility where the Encounter took place. Current Smoking Status This section includes the most current smoking, or tobacco-related health factor, from the [place] facility where the Encounter took place. Date/Time Current Smoking Status Comment Facil it July 24, 2023 10:00 AM VA-TOBACCO FORMER USER [place] [facility] [place] [facility] Tobacco Use History This section includes a history of the smoking, or tobacco-related health factors, that were collected on or before the date of the Encounter. The data comes from the [place] facility where the Encounter took place. Date/Time Smoking Status/Tobac co Use Comment Facility July 24, 2023 10:00 AM VA-TOBACCO QUIT 15 YRS OR MORE [facility] [place] [facility] July 14, 2022 03:30 PM VA-TOBACCO FORMER USER [facility] [place] [facility] July 14, 2022 03:30 PM VA-TOBACCO QUIT 15 YRS OR MORE [facility] [place] [facility] Aug 05, 2021 01:00 PM VA-TOBACCO FORMER USER [facility] [place] [facility] Aug 05, 2021 01:00 PM VA-TOBACCO QUIT 5 TO < 15 YRS [facility] [place] [facility] Sep 09, 2019 01:25 PM VA-TOBACCO FORMER USER [facility] [place] [facility] Sep 09, 2019 01:25 PM VA-TOBACCO QUIT 5 TO < 15 YRS [facility] [place] [facility] Dec 04, 2017 10:18 AM VA-TOBACCO FORMER USER [facility] [place] [facility] Dec 04, 2017 10:18 AM VA-TOBACCO QUIT 5 TO < 15 YRS [facility] [place] [facility] May 29, 2017 09:09 AM QUIT TOBACCO USE > 7 YEARS AGO [facility] [place] [facility] Apr 23, 2015 08:21 AM QUIT TOBACCO USE > 7 YEARS AGO [facility] [place] [facility] Apr 23, 2015 08:21 AM QUIT TOBACCO USE 1-7 YEARS AGO [facility] [place] [facility] Mar 06, 2011 11:06 AM QUIT TOBACCO USE 1-7 [facility]ARS AGO [facility] Apr 08, 2010 10:56 AM CURRENT SMOKER cigar once in a while [facility] Apr 08, 2010 10:56 AM V1-PT DECLINES REF TO TOBACCO CESS PRGM [facility] Apr 08, 2010 10:56 AM V1-PT DECLINES TOBACCO CESSATION MEDS [facility] Apr 08, 2010 10:56 AM V1-PT READY TO QUIT TOBACCO USE [facility] Feb 21, 2009 09:16 AM CURRENT SMOKER cigar once in a while [facility] Feb 21, 2009 09:16 AM V1-PT [facility]CLINES [facility] Feb 21, 2009 09:16 AM V1-PT DECLINES TOBACCO CESSATION MEDS [facility] Feb 21, 2009 09:16 AM V1-PT THINKING ABOUT QUIT TOBACCO USE [facility] Dec 16, 2007 09:15 AM QUIT TOBACCO USE 1-7 YEARS AGO [facility] Apr 01, 2007 11:08 AM QUIT TOBACCO USE 1-7 YEARS AGO [facility] Sep 28, 2006 08:52 AM QUIT TOBACCO USE IN PAST YEAR [facility] Apr 21, 2006 10:31 AM QUIT TOBACCO USE IN PAST YEAR August 2005 [facility] Dec 16, 2005 10:02 AM CURRENT SMOKER OCCASIONAL CIGAR [facility] May 19, 2001 03:50 PM CURRENT SMOKER see below [facility] Encounter Notes: All associated encounter notes This section contains the clinical notes associated to the Encounter. Date/Time Encounter Note(s) Provider Source Mar 16, 2024 09:50 AM PHARMACY CONSULT: LOCAL TITLE: CONSULT REPORT/PHARMACY STANDARD TITLE: PHARMACY CONSULT DATE OF NOTE: MAR 16, 2024@09:50 ENTRY DATE: MAR 16, 2024@09:50:27 AUTHOR: ALEJANDRA SNYDER COSIGNER: URGENCY: STATUS: COMPLETED JAY KRISHNA, 64 yo WHITE MALE, presents for [id number] initial visit for htn management. Today, pt reports long personal hx of htn and fm hx of htn, lost a brother at 43 y/o from CAD - had MD in sleep. Current dx of afibb - taking metprolol for that as previous ablations were unsuccessful. He had a GI bleed postt endo/colonoscopy in 10/2023- at that time rivaroxaban was dc'ed and he had a watchman procedure since. He is followed in the community by . He receives many of his medications from [facility] and prescribed by community providers. He does not currently check BP at home. He last saw Dr. Hines ~1 month ago and reports BP was 120/80 . Of note HCTZ was discontinued post hospitalization. Per community ER note 11/05/23 Multiple antihypertensive medications were held during hospital stay including hydrochlorothiazide and valsartan?would consider reaching out to PCP before resuming these medications. 01/2024 PCP visit, provider increase valsartan from 80 mg daily to 160 mg daily. Pt brought in all his medications to review. Of note pt has been taking fluoxetine for a long time. Current htn medications: - metorpolol ER 200 mg daily - valsartan 160 mg Previous htn medications: - hctz - stopped by [facility] when hospitalized. Medication Adherence: - daily Headaches: sometimes Chest pain: once in a while SOB: not much SOB upon exertion: a little Dizziness: not bad - if stands up too quick may get dizzy Diet Patterns: patient eats on avg. 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 Counseled on adequate hydration and to consider keeping alcohol consumption to 2 alcoholic beverages in one sitting as recommended by the CDC for males. Counseled to report any ADRS - dizziness, confusion etc to provider. Updated med list with non-VA medications. - Medication management: - CONTINUE - metorpolol ER 200 mg daily - CONTINUE - valsartan 160 mg - INITIATE - chlorthalidone 25 mg daily - SMBP at least twice a week - Healthy dietary and lifestyle modifications encouraged - Labs: Mar 2024 EDUCATION -A shared decision-making approach was used in the development of this plan, involving the , clinician, and any caregivers present. The was provided the opportunity express questions or concerns, and the plan was adjusted as needed to address these concerns. -Reviewed with any new medications, changes to the medication list, education, and plan from today's visit. Patient (and/or caregiver) verbalized understanding of the plan, including possible known risks and benefits, and had no additional questions. RTC: 04/18/24 @1000 Time Spent: 45 mins PBM PharmD Pharmacotherapy Rem V12: PHARMACIST INTERVENTIONS: HYPERTENSION Medication Intervention(s) Initiate new medication Medication reconciliation (changes to active VA and non-VA medication lists to reconcile differences) Changes to medication lists made Update dose, frequency, duration and/or dosage form of medication Discontinue or remove medication Add or renew medication /daniela/ ALEJANDRA SNYDER PHARMD,BCPS CLINICAL PHARMACY PRACTITIONER Signed: 03/16/2024 12:34 [facility]DER [facility]
--- OUTSIDE RECORDS SUMMARY | 2024-05-04 02:25 | XMS_ITS | Encounter Summary ---
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 Role Phone JUAN GOMEZ Primary Care Provider [facility] Insurance Providers: All historical and [...] JESSE FAMIL Y Mar 07, 2000 [id number] [phone] JAY KRISHNA PATIENT ANTHEM BCBS FEDERAL PREFERRED PROVIDER ORGANIZAT ION (PPO) STAND JESSE FAMIL Y Mar 07, 2000 105 [id number] JAY KRISHNA PATIENT ANTHEM BCBS FEDERAL PREFERRED PROVIDER ORGANIZAT ION (PPO) STAND JESSE SELF Mar 07, 2000 105 [id number] 15 JAY KRISHNA PATIENT BCBS [place] FEP PREFERRED PROVIDER ORGANIZAT ION (PPO) STAND JESSE FAMIL Y Mar 07, 2000 105 [id number] JAY KRISHNA PATIENT [place] PREFERRED PROVIDER ORGANIZAT ION (PPO) STAND JESSE FAMIL Y Mar 07, 2000 105 [id number] JAY KRISHNA PATIENT [place] DENTAL DENTAL INSURANCE STAND JESSE Mar 07, 2000 DENTAL [id number] JAY KRISHNA PATIENT [place] PREFERRED PROVIDER ORGANIZAT ION (PPO) STAND JESSE FAMIL Y Mar 07, 2000 105 [id number] JAY KRISHNA PATIENT [place] FEDERAL PREFERRED PROVIDER ORGANIZAT ION (PPO) STAND JESSE FAMIL Y Mar 07, 2000 105 [id number] JAY KRISHNA PATIENT [place] FEP BCBS PRESCRIPT ION CAREM ARK FEPRX PLAN Mar 07, 2000 [id number] JAY KRISHNA PATIENT [place] FEPRX PLAN PRESCRIPT ION CAREM ARK FEPRX Feb 23, 2010 [id number] JAY KRISHNA PATIENT [place] FEPRX PLAN PRESCRIPT ION CAREM ARK FEPRX Mar 07, 2000 [id number] JAY KRISHNA PATIENT [place]-F EP BCBS PRESCRIPT ION BCBS FEP PLAN Feb 23, 2010 [id number] JAY KRISHNA PATIENT [place]-F EP BCBS PRESCRIPT ION BCBS FEP Feb 23, 2010 [id number] JAY KRISHNA PATIENT [place]-F EP BCBS PRESCRIPT ION FEP CAREM ARK Feb 23, 2010 [id number] JAY KRISHNA PATIENT MEDICARE ([facility]) MEDICARE () PART A May 25, 2011 PART A [id number] [facility] JAY KRISHNA PATIENT MEDICARE ([facility]) MEDICARE () PART A May 25, 2011 PART A [id number] [facility] [phone] JAY KRISHNA PATIENT MEDICARE ([facility]) MEDICARE () PART A May 25, 2011 PART A [id number] [facility] JAY KRISHNA PATIENT MEDICARE (WNR) MEDICARE (M) PART A May 25, 2011 PART A [id number] [facility] JAY KRISHNA PATIENT MEDICARE (WNR) MEDICARE (M) PART A May 25, 2011 PART A [id number] JAY KRISHNA PATIENT MEDICARE (WNR) MEDICARE (M) PART A May 25, 2011 PART A [id number] [facility] [id number] JAY KRISHNA PATIENT MEDICARE (WNR) MEDICARE (M) PART A May 25, 2011 PART A [id number] [facility] JAY KRISHNA PATIENT MEDICARE (WNR) MEDICARE (M) PART A May 25, 2011 PART A [id number] [facility] [phone] JAY KRISHNA PATIENT Selected Encounter This section includes the information on record at [place] for the Encounter. Date/Time Encounter Type Encounter Description Reason Provider Source Apr 27, 2024 10:00 AM OFFICE O/P EST HI 40 MIN DERMATOLOGY ICD-10-CM L57.0 Actinic keratosis ENEDELIA ZUNIGA Skyla Encounter Template Text not used by [place] Assessments - Encounter Diagnoses This section includes the primary and secondary diagnoses documented for the Encounter. Date/Time Primary/Secondary Diagnosis Diagnosis Name Provider Source Apr 27, 2024 03:42 PM PRIMARY Actinic keratosis DALILA ZUNIGA [facility] [place] [facility] Apr 27, 2024 03:42 PM SECONDARY Dermatitis, unspecified DALILA ZUNIGA [facility] [place] [facility] Apr 27, 2024 03:42 PM SECONDARY Epidermal cyst DALILA ZUNIGA [facility] [place] [facility] Apr 27, 2024 03:42 PM SECONDARY Neoplasm of uncertain behavior of skin DALILA ZUNIGA [facility] [place] [facility] Apr 27, 2024 03:42 PM SECONDARY Nevus, non-neoplastic DALILA ZUNIGA [facility] [place] [facility] Apr 27, 2024 03:42 PM SECONDARY Other hypertrophic disorders of the skin DALILA ZUNIGA [facility] [place] [facility] Apr 27, 2024 03:42 PM SECONDARY Other melanin hyperpigmentation [facility] [place] [facility] Apr 27, 2024 03:42 PM SECONDARY Other rosacea [facility] [place] [facility] Apr 27, 2024 03:42 PM SECONDARY Xerosis cutis [facility] Plan of Treatment: Future Appointments (+ 6 months) and Future Tests (+/- 45 days) The Plan of Treatment section includes future care activities for the patient [facility] [place] [facility]. This section includes future appointments and future orders which are active, pending or scheduled. Future Appointments This section includes appointments that were scheduled to occur 6 months from the date of the Encounter, up to a maximum of 20 appointments. The data comes from all [facility]. Appointment Date/Time Appointment Type Appointme nt Facility Name Apr 28, 2024 09:30 AM AMBULATORY - MEDICINE [place] [facility] [facility] May 03, 2024 08:00 AM AMBULATORY MEDICINE [place] [facility] May 10, 2024 10:00 AM AMBULATORY MEDICINE [place] [facility] June 29, 2024 10:30 AM AMBULATORY MEDICINE [place] [facility] Aug 08, 2024 09:30 AM AMBULATORY MEDICINE [place] [facility] Aug 09, 2024 11:00 AM AMBULATORY MEDICINE [place] [facility] Oct 26, 2024 10:00 AM AMBULATORY MEDICINE [place] [facility] Active, Pending, and Scheduled Orders This section includes a listing of several types of active, pending, and scheduled orders, including clinic medications orders, diagnostic test orders, procedure orders and consult orders; where the start date of the order is 45 days before the date of the Encounter or 45 days after the date of theEncounter. The data comes from all [facility]. Test Date/Time Test Type Test Details Facility Name Apr 13, 2024 12:00 AM Laboratory - Chemi stry Order BASIC METABOLIC PANEL (non-fasting) BLOOD (SST-SERUM) [facility] [place] [facility] Apr 25, 2024 12:55 PM Consult Order COMMUNITY CARE-DENTAL GENERAL Cons Machine [employer] [place] [facility] Apr 27, 2024 12:00 AM Laboratory - Chemi stry Order SURGICAL PATH ORDER SURG PATH SPEC. UNKNOWN SP [place] [facility] [facility] Apr 27, 2024 03:38 PM Consult Order SURGERY/CW M OUTPT [facility] [employer] [facility] [place] [facility] May 03, 2024 04:19 PM Consult Order EYEGLASS R EQUEST - 4 SIGHT Cons [facility] [place] [facility] [place] [facility] May 03, 2024 04:19 PM Consult Order EYEGLASS R EQUEST - 4 SIGHT Cons [employer] [facility] [place] [facility] May 03, 2024 04:19 PM Consult Order EYEGLASS R EQUEST - 4 SIGHT Cons Machine 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 Date/Time Temperature Pulse Blood Pressure Respiratory Rate SP02 Pain Height Weight Body Mass Index Source Apr 27, 2024 09:50 AM 90 143/89 [place] [facility] Apr 27, 2024 09:46 AM 88 143/82 [place] [facility] Social History: Smoking Status (Most current) and Tobacco Use (All prior to encounter date) This section includes the most current, and the historical, smoking and tobacco- related health factors from the [place] facility where the Encounter took place. Current Smoking Status This section includes the most current smoking, or tobacco-related health factor, from the [place] facility where the Encounter took place. Date/Time Current Smoking Status Comment [facility] it July 24, 2023 10:00 AM [place]-TO[facility]ACCO [facility]IT 15 [facility]RS [facility] Tobacco Use History This section includes a history of the smoking, or tobacco-related health factors, that were collected on or before the date of the Encounter. The data comes from the [place] facility where the Encounter took place. Date/Time Smoking Status/Tobac co Use Comment Facility July 24, 2023 10:00 AM [place]-TOBACCO QUIT 15 YRS OR MORE [facility] [place] [facility] July 14, 2022 03:30 PM VA-TOBACCO FORMER USER [facility] [place] [facility] July 14, 2022 03:30 PM VA-TOBACCO QUIT 15 YRS OR MORE [facility] [place] [facility] Aug 05, 2021 01:00 PM VA-TOBACCO FORMER USER [facility] [place] [facility] Aug 05, 2021 01:00 PM VA-TOBACCO QUIT 5 TO < 15 YRS [facility] [place] [facility] Sep 09, 2019 01:25 PM VA-TOBACCO FORMER USER [facility] [place] [facility] Sep 09, 2019 01:25 PM VA-TOBACCO QUIT 5 TO < 15 YRS [facility] [place] [facility] Dec 04, 2017 10:18 AM VA-TOBACCO FORMER USER [facility] [place] [facility] Dec 04, 2017 10:18 AM VA-TOBACCO QUIT 5 TO < 15 YRS [facility] [place] [facility] May 29, 2017 09:09 AM QUIT TOBACCO USE > 7 YEARS AGO [facility] [place] [facility] Apr 23, 2015 08:21 AM QUIT TOBACCO USE > 7 YEARS AGO [facility] [place] [facility] Apr 23, 2015 08:21 AM QUIT TOBACCO USE 1-7 YEARS AGO [facility] [place] [facility] Mar 06, 2011 11:06 AM QUIT TOBACCO USE 1-7 YEARS AGO [facility] [place] [facility] Apr 08, 2010 10:56 AM CURRENT SMOKER cigar once in a while [place] [facility] [place] [facility] Apr 08, 2010 10:56 AM V1-PT [facility] [place] [facility] Apr 08, 2010 10:56 AM V1-PT DECLINES TOBACCO CESSATION MEDS [facility] [place] [facility] Apr 08, 2010 10:56 AM V1-PT READY TO QUIT TOBACCO USE [facility] [place] [facility] Feb 21, 2009 09:16 AM CURRENT SMOKER cigar once in a while [place] [facility] [place] [facility] Feb 21, 2009 09:16 AM V1-PT DECLINES REF TO TOBACCO CESS [facility] [place] [facility] Feb 21, 2009 09:16 AM V1-PT DECLINES TOBACCO CESSATION MEDS [facility] Feb 21, 2009 09:16 AM V1-PT THINKING ABOUT QUIT TOBACCO USE [facility] Dec 16, 2007 09:15 AM QUIT TOBACCO USE 1-7 YEARS AGO [facility] Apr 01, 2007 11:08 AM QUIT TOBACCO USE 1-7 YEARS AGO [facility] Sep 28, 2006 08:52 AM QUIT TOBACCO USE IN PAST YEAR [facility] Apr 21, 2006 10:31 AM QUIT TOBACCO USE IN PAST YEAR August 2005 [facility] Dec 16, 2005 10:02 AM CURRENT SMOKER OCCASIONAL CIGAR [facility] May 19, 2001 03:50 PM CURRENT SMOKER see below [facility] Pathology Reports: +/- 30 days of [...] the Encounter. The data comes from all [facility]] facilities. Date/Time Pathology Report Provider Source May 02, 2024 10:07 AM LR SURGICAL PATHOLOGY REPORT: LOCAL TITLE: LR SURGICAL PATHOLOGY REPORT STANDARD TITLE: PATHOLOGY REPORT DATE OF NOTE: MAY 02, 2024@10:07:13 ENTRY DATE: MAY 02, 2024@10:07:13 AUTHOR: RADHA MARTINEZ MD EXP COSIGNER: URGENCY: STATUS: COMPLETED $APHDR Reporting Lab: [facility] [CLIA# [id number]] [address] [place] [address] - - - - - - - [...] (Received Apr 28, 2024): A:LEFT UPPER BACK SKIN([id number]) B:RIGHT UPPER BACK SKIN([id number]) - - - - - - - [...] - - - PATHOLOGY REPORT Accession No. [facility] 25 1510 - - - - - - - - - - - - - - - - - - - - - - - - - - - - - - - - - - - - - - - - GROSS DESCRIPTION: The specimen is recieved from [facility]/ lucinda, [facility] 1510;A;1;Luis KRISHNA A. Received in formalin labeled [...] Performing Laboratory: Surgical Pathology Report Performed By: [facility] [CLIA# [id number]] [address] [place] [address] $FTR - - - - - - [...] - - JAY KRISHNA STANDARD FORM 515 ID:[id number] SEX:M :1960 AGE: 64 LOC:*[facility] PCP: /daniela/ Radha Martinez MD, FRCPath Board Certified Dermatopathologist Signed: 05/02/2024 10:07 RADHA MARTINEZ MD [facility] May 02, 2024 10:04 AM LR SURGICAL PATHOLOGY REPORT: LOCAL TITLE: LR SURGICAL PATHOLOGY REPORT STANDARD TITLE: PATHOLOGY DIAGNOSTIC STUDY REPORT DATE OF NOTE: MAY 02, 2024@10:04:16 ENTRY DATE: MAY 02, 2024@10:04:16 AUTHOR: RADHA MARTINEZ MD EXP COSIGNER: URGENCY: STATUS: COMPLETED $APHDR Reporting [facility] [CLIA# [id number]] [address] [place] [phone] - - - - - - - [...] - - - PATHOLOGY REPORT Accession No. [facility] - - - - - - [...] - - - PATHOLOGY REPORT Accession No. [facility] - - - - - - - - - - - - - - - - - - - - - - - - - - - - - - - - - - - - - - - - Gross description: The specimen is recieved from [facility], [facility] 0230;A;1;Luis KRISHNA A. Received in formalin labeled with [...] cross section in cassette B2. GIA Pacheco ([facility]) 04/28/2024 A. Skin, left upper back: [...] for further evaluation and treatment. 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 Date/Time Encounter Note(s) Provider Source May 02, 2024 10:48 AM ADDENDUM: LOCAL TITLE: Addendum STANDARD TITLE: ADDENDUM DATE OF NOTE: MAY 02, 2024@10:48:40 ENTRY DATE: MAY 02, 2024@10:48:41 AUTHOR: CLARK ZUNIGA EXP COSIGNER: URGENCY: STATUS: 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 No further intervention required. Follow up as scheduled, sooner PRN LAB SURGICAL PATHOLOGY Collected: 04/27/2024 12:23Acc:[facility] Surgeon/Physician: CLARK ZUNIGA Specimen: SPECIMEN A, L UPPER BACK SPECIMEN B, R UPPER BACK Brief Clinical Hx: SPECIMEN A- L UPPER BACK 2MM HYPERPIGMENTED MACILE WITH IRREGULAR NETWORK SPECIMEN B- R UPPER BACK 4MM PAPULE WITH IRREGULAR NETWORK Gross Description: The specimen is recieved from [facility] 1510;A;1;KRISHNA,B A. Received in formalin labeled [...] in cassette B2. GIA Pacheco ([facility]) 04/28/2024 Microscopic Exam: A. Skin, left upper back: Lentiginous junctional [...] for further evaluation and treatment. CPT codes 45927e5 /es/ CLARK ZUNIGA DNP, ELECTRICAL REPAIRER-C NURSE PRACTITIONER Signed: 05/02/2024 10:50 Receipt Acknowledged By: 05/02/2024 13:05 /es/ MILY MEEK LPN ZINC PLATING MACHINE OPERATOR --- Original Document --- 04/27/24 DERMATOLOGY CLINIC NOTE: APR 27, 2024 JAY KRISHNA Jan 64 PATIENT PHONE - Patient here for FOLLOW UP CHIEF COMPLAINT: h/o AKs, Rosacea HPI: Reviewed records from last Dermatology visit: 10/01/23; Irritated skin tag- s/p LN2, Rosacea- continues on topical metronidazole 0.5% gel, Dermatitis, unspec-R axilla advised d/c 'Josiah' body deodorant and treated with miconzaole powder. concerns today: -Lesion on tip of nose, L undereye, cyst on back denies any other new/changing/bleeding/non-heali ng lesions. REVIEW OF SYSTEMS: Constitutional-neg Skin/Hair/Nails-see HPI DermHx: -AKs s/p LN2 -Rosacea - metro gel Family Hx: Denies known h/o MM PastMedHx: Reviewed. 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 Purchased home in [facility]. Active Outpatient Medications (including Supplies): Active Outpatient [...] WHEN DRY Indication: TOE NAIL FUNGUS 4) PANTOPRAZOLE NA 40MG EC TAB TAKE ONE TABLET BY MOUTH TWICE ACTIVE DAILY BEFORE A MEAL Indication: FOR EXCESSIVE PRODUCTION OF STOMACH ACID 5) SILDENAFIL CITRATE 100MG TAB TAKE ONE TABLET BY MOUTH ONCE ACTIVE DAILY TAKE 1 HOUR PRIOR TO SEXUAL ACTIVITY Indication: FOR ERECTILE DYSFUNCTION 6) SIMVASTATIN 80MG TAB TAKE ONE-HALF TABLET BY MOUTH EVERY ACTIVE EVENING FOR CHOLESTEROL 7) VALSARTAN 160MG TAB TAKE ONE TABLET BY [...] WEEK Indication: FOR TYPE 2 DIABETES MELLITUS 16 Total Medications PHYSICAL EXAM: Cardoso Skintype II [...] on bilateral medial malar cheeks and nose with mild rhinophyma and prominent follicular openings -R upper back with a flesh tone fluctuant nodule with central punctum, approx 2 cm -generalized xerosis -anterior knee area with an approx 4 cm blanching erythematous annular thin shiny plaque with trace scale -distal aspect of RLE BKA with some flesh tone hyperkeratotic scaly plaques - no open lesions or drainage -L upper back, 2mm hyperpigmented macule with irregular network of dark globules on dermoscopy -R upper back, 4mm hyperpigmented papule with irregular network of dark globules on dermoscopy Diagnosis/Plan: #Actinic Keratosis: -Location: lateral aspects of frontal scalp -[place] educated on relationship to squamous cell carcinoma. -Treatment options discussed. -Liquid nitrogen cryotherapy performed as a destructive method. -Verbal consent given. -Liquid nitrogen (2 cycles x 5-8sec) x #6 lesions performed. -Side effects including but not limited to redness, crusting, swelling, blistering, hypopigmentation and scarring discussed. -Photoprotection discussed. #Neoplasm of Uncertain Behavior -Sites: A. L upper back, B. R upper back -Biopsy advised; DDx: A. atypical nevi, B. atypical nevi ##Shave Biopsy Procedure: -The purpose, benefits, risks (infection, bleeding and scar) and alternatives of the procedures were discussed. -Verbal informed consent was obtained. Patient consents to pictures to be taken for documentation. -The surgical sites were confirmed with the patient. Time out was implemented to confirm patient's name, date of , location of the lesion and indication for the biopsy with XXX. -Pre-Procedure Pain: 0 -Biopsy sites were swabbed with alcohol. -Anesthesia achieved by local infiltration of lesion with 1% lidocaine with epinephrine 1:100,000. -A tangential shave specimen was taken from each site to the depth of the dermis using a flexible dermablade. -Hemostasis was achieved with aluminum chloride (Drysol). -Routine wound care was performed and a dressing was applied using Vaseline and a Bandage. -The patient tolerated the procedures well without complications. -Post-Procedure Pain: 0 -Wound care was reviewed and a printed copy was given to the patient. -Plan of care to be discussed once biopsy results return. -Discussed with that if results are benign (non-cancerous), a letter will be mailed indicating this and that no further treatment is required. -Advised that if they do not receive a letter or a phone call within 2-3 weeks, to reach out to clinic and inquire on biopsy results. #Skin Tag, Irritated -The was educated regarding the benign nature, but given irritation/pain, destructive treatment requested. -Liquid nitrogen cryotherapy performed as a destructive method. -Liquid nitrogen (2 cycles x 5-8sec) x #1 lesions performed (L infraorbital area), LN2 applied with cotton tipped applicator. -Side effects including but not limited to redness, crusting, swelling, blistering, hypopigmentation and scarring discussed. #Nevi: -ABCDEs of melanotic lesions discussed, self examinations encouraged -No concerning lesions today on examination -A full body skin check is recommended yearly -Photoprotection discussed. #Seborrheic Keratoses: -The was educated regarding the benign nature, but to return with any growth, change or symptoms in area. #Rosacea -Stable -Discussed Dx, avoidance of triggers (such as [...] Avoid contact with eyes. Reviewed side effects. Rx renewed. 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 #Dermatitis, Unspecified -Location: R BKA -DDx: tinea vs other -START terbinafine 1% cream BID for 1-4 weeks then PRN -START miconazole 2% powder BID -Return precautions discussed #Epidermal Inclusion Cyst -Location: R upper back -Size: Approx 2 cm -The [place] was educated regarding the benign nature, but given chronicity, increase in size and pain, intervention requested -[facility] SURGERY consult placed for excision #Xerosis -Advised liberal emollients. Rx mailed per request RTC 6m, sooner PRN * educated to RTC basim if any new, changing, symptomatic lesions. * Education on sun protection and avoidance strategies was provided. * Differential diagnosis, prescription options and risks/benefits were discussed with the patient, who consented to treatment plan. * consented to photography for documentation if indicated. * A dermatoscope was used during the exam. * NUB = Neoplasm of Uncertain Behavior of Skin * NMSC = Nonmelanoma Skin Cancer * AK = Actinic Keratosis ------TIME ESTIMATION To include but not limied to: -Review of medical records -Time spent with patient including obtaining history, physical exam, shared decision making, procedures and counseling -Post visit documentation; HPI and physical exam findings, clinical researching, medical decision making, medication and lab ordering Total estimated time = 60 min -- Medication Reconciliation: Outpatient: Has the patient been taking medications as documented in the EMLR? YES: The patient has been taking medications as documented in the EMLR. Essential Medication List for Review used to complete this medication reconciliation. INCLUDED IN THIS LIST: Alphabetical list of active outpatient prescriptions dispensed from this [place] (local) and dispensed from another [place] or [facility] facility (remote) as well as inpatient orders [...] whether with a VA or non-VA provider. JLV Link Data on this list may not be complete. Please check JLV. Allergies/ADRs (Tool #5) FACILITY ALLERGY/ADR -------- [facility] AMITRIPTYLINE [facility] ERYTHRITOL [facility] [place] [facility] ERYTHROMYCIN [facility] AMITRIPTYLINE [facility] GABAPENTIN Med Recon NoGlossary (Tool #1) INCLUDED IN THIS LIST: Alphabetical list of active outpatient prescriptions dispensed from this [place] (local) and dispensed from another [place] or [facility] facility (remote) as well as inpatient orders (local pending and active), local clinic medications, locally documented non-VA medications, and local prescriptions that have or been discontinued in the past 90 days. Non-VA Meds Last Documented On: Mar 16, 2024 NOTE The display of VA prescriptions dispensed from another [place] or [facility] facility (remote) is limited to active outpatient prescription entries matched to National Drug File at the originating site and may not include some items such as investigational drugs, compounds, etc. NOT INCLUDED IN THIS LIST: Medications self-entered by the patient into personal health records (i.e. [facility]) are NOT included in this list. Non-VA medications documented outside this [place], remote inpatient orders (regardless of status) and [...] TIMES A DAY FOR DRY EYE Rx# [id number] Last Released: 04/25/23 Qty/Days Supply: 45 Rx Expiration Date: 04/22/24 Refills Remainin Indication: FOR DRY EYE OUTPT CHLORTHALIDONE 25MG TAB (Status = Active/Suspended) TAKE ONE TABLET BY MOUTH ONCE DAILY TO REMOVE FLUID/CONTROL BLOOD PRESSURE Rx# [id number] Last Released: 03/18/24 Qty/Days Supply: 9090 Rx Expiration Date: 03/17/25 Refills Remainin Indication: FOR HIGH BLOOD PRESSURE OUTPT CLOBETASOL PROPIONATE 0.05% CREAM (Status = Active) APPLY A THIN LAYER TOPICALLY TWICE DAILY FOR ITCHING/RASH APPLY TO AFFECTED AREAS FOR 2 WEEKS, THEN NEEDED Rx# [id number] Last Released: 10/06/23 Qty/Days Supply: 60/30 Rx Expiration Date: 10/01/24 Refills Remainin Indication: FOR SKIN INFLAMMATION Non-VA CLOPIDOGREL BISULFATE 75MG TAB TAKE ONE TABLET BY MOUTH ONCE DAILY Medication prescribed by Non-VA provider. Indication: TO PREVENT BLOOD CLOTS OUTPT CLOTRIMAZOLE 1% TOP SOLN (Status = Active) APPLY 1 DROP TOPICALLY ONCE DAILY FOR FUNGAL INFECTION APPLY TO NAILS WHEN DRY Rx# [id number] Last Released: 09/28/23 Qty/Days Supply: Rx Expiration [...] DAY TO PREVENT FLUID/CONTROL BLOOD PRESSURE Rx# [id number] Last Released: 11/02/23 Qty/Days Supply: Rx Expiration Date: 08/11/24 Refills Remainin Non-VA METOPROLOL SUCCINATE 200MG SA TAB TAKE ONE TABLET BY MOUTH ONCE DAILY Medication prescribed by Non-VA provider. Indication: afibb OUTPT METOPROLOL SUCCINATE 50MG SA TAB (Status = Discontinued) TAKE THREE TABLETS BY MOUTH ONCE DAILY FOR BLOOD PRESSURE/HEART Rx# [id number] Last Released: 08/13/23 Qty/Days Supply: 270 Rx Expiration Date: 08/11/24 Refills Remainin Indication: FOR HIGH BLOOD PRESSURE OUTPT METRONIDAZOLE 0.75% TOP GEL (Status = ) APPLY SMALL AMOUNT TOPICALLY TWICE DAILY FOR ACNE ROSACEA Rx# [id number] Last Released: 10/06/23 Qty/Days Supply: Rx Expiration Date: 04/02/24 Refills Remainin Indication: FOR ACNE ROSACEA OUTPT OMEPRAZOLE 20MG EC CAP (Status = Discontinued) TAKE ONE CAPSULE BY MOUTH TWICE DAILY BEFORE A MEAL FOR GASTROESOPHAGEAL REFLUX DISEASE Rx# [id number] Last Released: 10/17/23 Qty/Days Supply: 180 Rx Expiration Date: 08/11/24 Refills Remainin Indication: FOR GASTROESOPHAGEAL REFLUX DISEASE Non-VA OXYCODONE HCL 5MG TAB NOT SA TAKE ONE TABLET BY MOUTH EVERY 8 HOURS NEEDED Medication prescribed by Non-VA provider. via community pcp OUTPT PANTOPRAZOLE NA 40MG EC TAB (Status = Active) TAKE ONE TABLET BY MOUTH TWICE DAILY BEFORE A MEAL FOR EXCESSIVE PRODUCTION OF STOMACH ACID Rx# [id number] Last Released: 02/19/24 Qty Supply: Rx Expiration Date: 02/11/25 Refills Remainin Indication: FOR EXCESSIVE PRODUCTION OF STOMACH ACID OUTPT RIVAROXABAN 20MG TAB (Status = Discontinued) TAKE ONE TABLET BY MOUTH EVERY EVENING WITH FOOD Rx# [id number] Last Released: 10/27/23 Qt Supply: Rx Expiration Date: 08/11/24 Refills Remainin Non-VA SEMAGLUTIDE 2MG/0.75ML INJ PEN 3ML INJECT 2MG SUBCUTANEOUSLY ONCE A WEEK Medication prescribed by Non-VA provider. Indication: FOR TYPE 2 DIABETES MELLITUS OUTPT SILDENAFIL CITRATE 100MG TAB (Status = Active) TAKE ONE TABLET BY MOUTH ONCE DAILY TAKE 1 HOUR PRIOR TO SEXUAL ACTIVITY Rx# [id number] Last Released: 04/25/24 Qt Supply: Rx Expiration Date: 08/11/24 Refills Remainin Indication: FOR ERECTILE DYSFUNCTION OUTPT SIMVASTATIN 80MG TAB (Status = Discontinued) TAKE ONE-HALF TABLET BY MOUTH EVERY EVENING FOR CHOLESTEROL Rx# [id number] Last Released: 01/14/24 Qt Supply: Rx Expiration Date: 04/02/24 Refills Remainin OUTPT SIMVASTATIN 80MG TAB (Status = Active) TAKE ONE-HALF TABLET BY MOUTH EVERY EVENING FOR CHOLESTEROL Rx# [id number] Last Released: Supply: Rx Expiration Date: 04/23/25 Refills Remainin OUTPT VALSARTAN 160MG TAB (Status = Active) TAKE ONE TABLET BY MOUTH ONCE DAILY FOR HIGH BLOOD PRESSURE Rx# [id number] Last Released: 03/21/24 Qt Supply: Rx Expiration Date: 02/11/25 Refills Remainin Indication: FOR HIGH BLOOD PRESSURE SUPPLIES /daniela/ CLARK ZUNIGA DNP, ELECTRICAL REPAIRER-C NURSE PRACTITIONER Signed: 04/27/2024 15:42 CLARK ZUNIGA [facility] [place] [facility] Apr 27, 2024 10:06 AM DERMATOLOGY OUTPATIENT NOTE: LOCAL TITLE: DERMATOLOGY CLINIC NOTE STANDARD TITLE: DERMATOLOGY OUTPATIENT NOTE DATE OF NOTE: APR 27, 2024@10:06 ENTRY DATE: APR 27, 2024@10:06:31 AUTHOR: CLARK ZUNIGA EXP COSIGNER: URGENCY: STATUS: COMPLETED DERMATOLOGY CLINIC NOTE Has ADDENDA APR 27, 2024 JAY KRISHNA Jan 64 PATIENT PHONE - Patient here for FOLLOW UP CHIEF COMPLAINT: h/o AKs, Rosacea HPI: Reviewed records from last Dermatology visit: 10/01/23; Irritated skin tag- s/p LN2, Rosacea- continues on topical metronidazole 0.5% gel, Dermatitis, unspec-R axilla advised d/c 'Josiah' body deodorant and treated with miconzaole powder. [place] concerns today: -Lesion on tip of nose, L undereye, cyst on back denies any other new/changing/bleeding/non-heali ng lesions. REVIEW OF SYSTEMS: Constitutional-neg Skin/Hair/Nails-see HPI DermHx: -AKs s/p LN2 -Rosacea - metro gel Family Hx: Denies known h/o MM PastMedHx: Reviewed. 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 Purchased home in [facility]. Active Outpatient Medications (including Supplies): Active Outpatient [...] WHEN DRY Indication: TOE NAIL FUNGUS 4) PANTOPRAZOLE NA 40MG EC TAB TAKE ONE TABLET BY MOUTH TWICE ACTIVE DAILY BEFORE A MEAL Indication: FOR EXCESSIVE PRODUCTION OF STOMACH ACID 5) SILDENAFIL CITRATE 100MG TAB TAKE ONE TABLET BY MOUTH ONCE ACTIVE DAILY TAKE 1 HOUR PRIOR TO SEXUAL ACTIVITY Indication: FOR ERECTILE DYSFUNCTION 6) SIMVASTATIN 80MG TAB TAKE ONE-HALF TABLET BY MOUTH EVERY ACTIVE EVENING FOR CHOLESTEROL 7) VALSARTAN 160MG TAB TAKE ONE TABLET BY [...] WEEK Indication: FOR TYPE 2 DIABETES MELLITUS 16 Total Medications PHYSICAL EXAM: Cardoso Skintype II [...] on bilateral medial malar cheeks and nose with mild rhinophyma and prominent follicular openings -R upper back with a flesh tone fluctuant nodule with central punctum, approx 2 cm -generalized xerosis -anterior knee area with an approx 4 cm blanching erythematous annular thin shiny plaque with trace scale -distal aspect of RLE BKA with some flesh tone hyperkeratotic scaly plaques - no open lesions or drainage -L upper back, 2mm hyperpigmented macule with irregular network of dark globules on dermoscopy -R upper back, 4mm hyperpigmented papule with irregular network of dark globules on dermoscopy Diagnosis/Plan: #Actinic Keratosis: -Location: lateral aspects of frontal scalp -[place] educated on relationship to squamous cell carcinoma. -Treatment options discussed. -Liquid nitrogen cryotherapy performed as a destructive method. -Verbal consent given. -Liquid nitrogen (2 cycles x 5-8sec) x #6 lesions performed. -Side effects including but not limited to redness, crusting, swelling, blistering, hypopigmentation and scarring discussed. -Photoprotection discussed. #Neoplasm of Uncertain Behavior -Sites: A. L upper back, B. R upper back -Biopsy advised; DDx: A. atypical nevi, B. atypical nevi ##Shave Biopsy Procedure: -The purpose, benefits, risks (infection, bleeding and scar) and alternatives of the procedures were discussed. -Verbal informed consent was obtained. Patient consents to pictures to be taken for documentation. -The surgical sites were confirmed with the patient. Time out was implemented to confirm patient's name, date of , location of the lesion and indication for the biopsy with XXX. -Pre-Procedure Pain: 0 -Biopsy sites were swabbed with alcohol. -Anesthesia achieved by local infiltration of lesion with 1% lidocaine with epinephrine 1:100,000. -A tangential shave specimen was taken from each site to the depth of the dermis using a flexible dermablade. -Hemostasis was achieved with aluminum chloride (Drysol). -Routine wound care was performed and a dressing was applied using Vaseline and a Bandage. -The patient tolerated the procedures well without complications. -Post-Procedure Pain: 0 -Wound care was reviewed and a printed copy was given to the patient. -Plan of care to be discussed once biopsy results return. -Discussed with that if results are benign (non-cancerous), a letter will be mailed indicating this and that no further treatment is required. -Advised that if they do not receive a letter or a phone call within 2-3 weeks, to reach out to clinic and inquire on biopsy results. #Skin Tag, Irritated -The [place] was educated regarding the benign nature, but given irritation/pain, destructive treatment requested. -Liquid nitrogen cryotherapy performed as a destructive method. -Liquid nitrogen (2 cycles x 5-8sec) x #1 lesions performed (L infraorbital area), LN2 applied with cotton tipped applicator. -Side effects including but not limited to redness, crusting, swelling, blistering, hypopigmentation and scarring discussed. #Nevi: -ABCDEs of melanotic lesions discussed, self examinations encouraged -No concerning lesions today on examination -A full body skin check is recommended yearly -Photoprotection discussed. #Seborrheic Keratoses: -The [place] was educated regarding the benign nature, but to return with any growth, change or symptoms in area. #Rosacea -Stable -Discussed Dx, avoidance of triggers (such as [...] Avoid contact with eyes. Reviewed side effects. Rx renewed. 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 #Dermatitis, Unspecified -Location: R BKA -DDx: tinea vs other -START terbinafine 1% cream BID for 1-4 weeks then PRN -START miconazole 2% powder BID -Return precautions discussed #Epidermal Inclusion Cyst -Location: R upper back -Size: Approx 2 cm -The [place] was educated regarding the benign nature, but given chronicity, increase in size and pain, intervention requested -[facility] consult placed for excision #Xerosis -Advised liberal emollients. Rx mailed per request RTC 6m, sooner PRN * [place] educated to RTC basim if any new, changing, symptomatic lesions. * Education on sun protection and avoidance strategies was provided. * Differential diagnosis, prescription options and risks/benefits were discussed with the patient, who consented to treatment plan. * consented to photography for documentation if indicated. * A dermatoscope was used during the exam. * NUB = Neoplasm of Uncertain Behavior of Skin * NMSC = Nonmelanoma Skin Cancer * AK = Actinic Keratosis ------TIME ESTIMATION To include but not limied to: -Review of medical records -Time spent with patient including obtaining history, physical exam, shared decision making, procedures and counseling -Post visit documentation; HPI and physical exam findings, clinical researching, medical decision making, medication and lab ordering Total estimated time = 60 min -- Medication Reconciliation: Outpatient: Has the patient been taking medications as documented in the EMLR? YES: The patient has been taking medications as documented in the EMLR. Essential Medication List for Review used to complete this medication reconciliation. INCLUDED IN THIS LIST: Alphabetical list of active outpatient prescriptions dispensed from this [place] (local) and dispensed from another [place] or [facility] facility (remote) as well as inpatient orders [...] whether with a VA or non-VA provider. JLV Link Data on this list may not be complete. Please check JLV. Allergies/ADRs (Tool #5) FACILITY ALLERGY/ADR -------- [facility] AMITR[facility] [place] [facility] ER[facility]THROMYCIN [facility] Med Recon NoGlossary (Tool #1) INCLUDED IN THIS LIST: Alphabetical list of active outpatient prescriptions dispensed from this [place] (local) and dispensed from another [place] or [facility] facility (remote) as well as inpatient orders (local pending and active), local clinic medications, locally documented non-VA medications, and local prescriptions that have or been discontinued in the past 90 days. Non-VA Meds Last Documented On: Mar 16, 2024 NOTE The display of VA prescriptions dispensed from another VA or [facility] facility (remote) is limited to active outpatient prescription entries matched to National Drug File at the originating site and may not include some items such as investigational drugs, compounds, etc. NOT INCLUDED IN THIS LIST: Medications self-entered by the patient into personal health records (i.e. [facility]) are NOT included in this list. Non-VA medications documented outside this [place], remote inpatient orders (regardless of status) and [...] TIMES A DAY FOR DRY EYE Rx# [id number] Last Released: 04/25/23 Qty/Days Supply: Rx Expiration Date: 04/22/24 Refills Remainin Indication: FOR DRY EYE OUTPT CHLORTHALIDONE 25MG TAB (Status = Active/Suspended) TAKE ONE TABLET BY MOUTH ONCE DAILY TO REMOVE FLUID/CONTROL BLOOD PRESSURE Rx# [id number] Last Released: 03/18/24 Qty/Days Supply: Rx Expiration Date: 03/17/25 Refills Remainin Indication: FOR HIGH BLOOD PRESSURE OUTPT CLOBETASOL PROPIONATE 0.05% CREAM (Status = Active) APPLY A THIN LAYER TOPICALLY TWICE DAILY FOR ITCHING/RASH APPLY TO AFFECTED AREAS FOR 2 WEEKS, THEN NEEDED Rx# [id number] Last Released: 10/06/23 Qty/Days Supply: 6030 Rx Expiration Date: 10/01/24 Refills Remainin Indication: FOR SKIN INFLAMMATION Non-VA CLOPIDOGREL BISULFATE 75MG TAB TAKE ONE TABLET BY MOUTH ONCE DAILY Medication prescribed by Non-VA provider. Indication: TO PREVENT BLOOD CLOTS OUTPT CLOTRIMAZOLE 1% TOP SOLN (Status = Active) APPLY 1 DROP TOPICALLY ONCE DAILY FOR FUNGAL INFECTION APPLY TO NAILS WHEN DRY Rx# [id number] Last Released: 09/28/23 Qty/Days Supply: Rx Expiration [...] DAY TO PREVENT FLUID/CONTROL BLOOD PRESSURE Rx# [id number] Last Released: 11/02/23 Qty/Days Supply: 90 Rx Expiration Date: 08/11/24 Refills Remainin Non-VA METOPROLOL SUCCINATE 200MG SA TAB TAKE ONE TABLET BY MOUTH ONCE DAILY Medication prescribed by Non-VA provider. Indication: afibb OUTPT METOPROLOL SUCCINATE 50MG SA TAB (Status = Discontinued) TAKE THREE TABLETS BY MOUTH ONCE DAILY FOR BLOOD PRESSURE/HEART Rx# [id number] Last Released: 08/13/23 Qty/Days Supply: 270/90 Rx Expiration Date: 08/11/24 Refills Remainin Indication: FOR HIGH BLOOD PRESSURE OUTPT METRONIDAZOLE 0.75% TOP GEL (Status = ) APPLY SMALL AMOUNT TOPICALLY TWICE DAILY FOR ACNE ROSACEA Rx# [id number] Last Released: 10/06/23 Qty/Days Supply: 90 Rx Expiration Date: 04/02/24 Refills Remainin Indication: FOR ACNE ROSACEA OUTPT OMEPRAZOLE 20MG EC CAP (Status = Discontinued) TAKE ONE CAPSULE BY MOUTH TWICE DAILY BEFORE A MEAL FOR GASTROESOPHAGEAL REFLUX DISEASE Rx# [id number] Last Released: 10/17/23 Qty/Days Supply: 180/ Rx Expiration Date: 08/11/24 Refills Remainin Indication: FOR GASTROESOPHAGEAL REFLUX DISEASE Non-VA OXYCODONE HCL 5MG TAB NOT SA TAKE ONE TABLET BY MOUTH EVERY 8 HOURS NEEDED Medication prescribed by Non-VA provider. via community pcp OUTPT PANTOPRAZOLE NA 40MG EC TAB (Status = Active) TAKE ONE TABLET BY MOUTH TWICE DAILY BEFORE A MEAL FOR EXCESSIVE PRODUCTION OF STOMACH ACID Rx# [id number] Last Released: 02/19/24 Qty/Days Supply: 180/90 Rx Expiration Date: 02/11/25 Refills Remainin Indication: FOR EXCESSIVE PRODUCTION OF STOMACH ACID OUTPT RIVAROXABAN 20MG TAB (Status = Discontinued) TAKE ONE TABLET BY MOUTH EVERY EVENING WITH FOOD Rx# [id number] Last Released: 10/27/23 Qty/ Supply: Rx Expiration Date: 08/11/24 Refills Remainin Non-VA SEMAGLUTIDE 2MG/0.75ML INJ PEN 3ML INJECT 2MG SUBCUTANEOUSLY ONCE A WEEK Medication prescribed by Non-VA provider. Indication: FOR TYPE 2 DIABETES MELLITUS OUTPT SILDENAFIL CITRATE 100MG TAB (Status = Active) TAKE ONE TABLET BY MOUTH ONCE DAILY TAKE 1 HOUR PRIOR TO SEXUAL ACTIVITY Rx# [id number] Last Released: 04/25/24 Qty/Days Supply: Rx Expiration Date: 08/11/24 Refills Remainin Indication: FOR ERECTILE DYSFUNCTION OUTPT SIMVASTATIN 80MG TAB (Status = Discontinued) TAKE ONE-HALF TABLET BY MOUTH EVERY EVENING FOR CHOLESTEROL Rx# [id number] Last Released: 01/14/24 Qty/ Supply: Rx Expiration Date: 04/02/24 Refills Remainin OUTPT SIMVASTATIN 80MG TAB (Status = Active) TAKE ONE-HALF TABLET BY MOUTH EVERY EVENING FOR CHOLESTEROL Rx# [id number] Last Released: Supply: Rx Expiration Date: 04/23/25 Refills Remainin OUTPT VALSARTAN 160MG TAB (Status = Active) TAKE ONE TABLET BY MOUTH ONCE DAILY FOR HIGH BLOOD PRESSURE Rx# [id number] Last Released: 03/21/24 Qty Supply: Rx Expiration Date: 02/11/25 Refills Remainin Indication: FOR HIGH BLOOD PRESSURE SUPPLIES /daniela/ CLARK ZUNIGA DNP, ELECTRICAL REPAIRER-C NURSE PRACTITIONER Signed: 04/27/2024 15:42 05/02/2024 ADDENDUM STATUS: 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 No further intervention required. Follow up as scheduled, sooner PRN LAB SURGICAL PATHOLOGY Collected: 04/27/2024 12:23Acc:[facility] Surgeon/Physician: CLARK ZUNIGA Specimen: SPECIMEN A, L UPPER BACK SPECIMEN B, R UPPER BACK Brief Clinical Hx: SPECIMEN A- L UPPER BACK 2MM HYPERPIGMENTED MACILE WITH IRREGULAR NETWORK SPECIMEN B- R UPPER BACK 4MM PAPULE WITH IRREGULAR NETWORK Gross Description: The specimen is recieved from [facility] 1510;A;1;KRISHNA,B A. Received in formalin labeled [...] in cassette B2. GIA Pacheco (ASCP) 04/28/2024 Microscopic Exam: A. Skin, left upper back: Lentiginous junctional [...] for further evaluation and treatment. CPT codes [id number] /daniela/ CLARK ZUNIGA DNP, ELECTRICAL REPAIRER-C NURSE PRACTITIONER Signed: 05/02/2024 10:50 Receipt Acknowledged By: 05/02/2024 13:05 /daniela/ MILY MEEK LPN LPN 05/02/2024 ADDENDUM STATUS: COMPLETED [place] notified of biopsy results. /daniela/ MILY MEEK LPN LPN Signed: 05/02/2024 13:06 CLARK ZUNIGA [place] [facility]
--- OUTSIDE RECORDS SUMMARY | 2024-05-04 02:25 | XMS_ITS ---
Author Name [facility] Organization Unknown Results Test Name/Text Value Interpretation Date Range Source ABO Group Bld A Normal [facility]_ [facility] Rh Bld Positive Normal [facility]AN Bld gp Ab Scn SerPl Ql Negative Normal [facility] Glucose Bld-mCnc 89mg/dL Normal [id number] 70 - 199 [facility] History of Medication Use Medication Directions Dispensed Refills Start Date End Date Stat metoprolol succinate (TOPROL-XL) 200 mg 24 hr tablet Take 1 tablet (200 mg total) by mouth 1 (one) time each day. 01/08/2024 active FLUoxetine (PROzac) 20 mg tablet Take 1 Tablet by mouth daily. active hydroCHLOROthiazide (HYDRODIURIL) 25 mg tablet Take 1 tablet (25 mg total) by mouth daily. - Oral 4 aborted clopidogreL (PLAVIX) 75 mg tablet Take 1 tablet (75 mg total) by mouth 1 (one) time each day. 01/07/2024 active simvastatin (ZOCOR) 40 mg tablet Take 1 tablet (40 mg total) by mouth every night at bedtime. active semaglutide (OZEMPIC) 1 mg/dose (2 mg/1.5 mL) injection pen Inject 2 mg under the skin once a week. active celecoxib (CeleBREX) 200 mg capsule Take 1 capsule (200 mg total) by mouth daily. 4 aborted metoprolol succinate (TOPROL-XL) 100 mg 24 hr tablet Take 2 tablets (200 mg total) by mouth 1 (one) time each day. Take 1 tablet (100 mg total) by mouth daily. 10/14/2018 4 aborted doxycycline (ADOXA) 100 MG tablet Take 1 tablet (100 mg total) by mouth 2 (two) times a day. 06/16/2023 4 active valsartan (DIOVAN) tablet 160 mg 160 mg, oral, Daily, First dose on Thu01/08/24 at 0900 01/08/2024 active valsartan (DIOVAN) 160 mg tablet Take 1 Tablet by mouth daily. active pantoprazole (PROTONIX) EC tablet 40 mg 40 mg, oral, Every morning before breakfast, First dose on Thu01/08/24 at 0700, Do not crush, chew, or split. 01/08/2024 active oxyCODONE (ROXICODONE) 5 mg immediate release tablet Take 1 tablet (5 mg total) by mouth every 8 (eight) hours as needed for pain. active Problems Problem Status Onset Date Problem Type Date of Resolution Source Obesity (BMI 30-39.9) active 2024-01-[address] [facility] Cellulitis of right leg active EncounterDiagnosisAct [facility] Atrial fib/flutter, transient active 2024-01-07 ProblemAct [facility] Presence of Watchman left atrial appendage closure device active 2024-01-07 ProblemAct [facility] Encounters Encounter Type Encounter Reason Primary Diagnosis Location Date Inpatient Longstanding persistent atrial fibrillation Longstanding persistent atrial fibrillation [facility] 01/07/2024 Ambulatory [email or web address] 12/15/2023 Ambulatory Cellulitis of right lower limb Cellulitis of right lower limb [facility] 06/16/2023 Care Team Organization Name Specialty Phone Email Start Date End Da te [facility] Primary Care 01/08/2024 [facility] [place] [facility] 06[facility]17/2023 [facility] NO PCP Primary Care 06/16/2023 [facility] 06/15/2023
--- OUTSIDE RECORDS SUMMARY | 2024-05-04 02:25 | XMS_ITS ---
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 Name Role Phone JUAN OBRIEN Primary Care Provider Unavaileddie [facility] Insurance Providers: All historical and [...] JESSE FAMIL Y Mar 07, 2000 [id number] [phone] JAY KRISHNA PATIENT ANTHEM BCBS FEDERAL PREFERRED PROVIDER ORGANIZAT ION (PPO) STAND JESSE FAMIL Y Mar 07, 2000 105 [id number] JAY KRISHNA PATIENT ANTHEM BCBS FEDERAL PREFERRED PROVIDER ORGANIZAT ION (PPO) STAND JESSE SELF Mar 07, 2000 105 [id number] JAY KRISHNA PATIENT BCBS [place] FEP PREFERRED PROVIDER ORGANIZAT ION (PPO) STAND JESSE FAMIL Y Mar 07, 2000 105 [id number] JAY KRISHNA PATIENT [place] PREFERRED PROVIDER ORGANIZAT ION (PPO) STAND JESSE FAMIL Y Mar 07, 2000 105 [id number] JAY KRISHNA PATIENT [place] DENTAL DENTAL INSURANCE STAND JESSE Mar 07, 2000 DENTAL [id number] [phone] JAY KRISHNA PATIENT [place] PREFERRED PROVIDER ORGANIZAT ION (PPO) STAND JESSE FAMIL Y Mar 07, 2000 105 [id number] JAY KRISHNA PATIENT [place] FEDERAL PREFERRED PROVIDER ORGANIZAT ION (PPO) STAND JESSE FAMIL Y Mar 07, 2000 105 [id number] [phone] JAY KRISHNA PATIENT [place] FEP BCBS PRESCRIPT ION CAREM ARK FEPRX PLAN Mar 07, 2000 [id number] JAY KRISHNA PATIENT [place] FEPRX PLAN PRESCRIPT ION CAREM ARK FEPRX Feb 23, 2010 [id number] JAY KRISHNA PATIENT [place] FEPRX PLAN PRESCRIPT ION CAREM ARK FEPRX Mar 07, 2000 [id number] JAY KRISHNA PATIENT [place]-F EP BCBS PRESCRIPT ION BCBS FEP PLAN Feb 23, 2010 [id number] JAY KRISHNA PATIENT [place]-F EP BCBS PRESCRIPT ION BCBS FEP Feb 23, 2010 [id number] JAY KRISHNA PATIENT [place]-F EP BCBS PRESCRIPT ION FEP CAREM ARK Feb 23, 2010 [id number] JAY KRISHNA PATIENT MEDICARE ([facility]) MEDICARE () PART A May 25, 2011 PART A [id number] [facility] JAY KRISHNA PATIENT MEDICARE ([facility]) MEDICARE () PART A May 25, 2011 PART A [id number] [facility] [phone] JAY KRISHNA PATIENT MEDICARE ([facility]) MEDICARE () PART A May 25, 2011 PART A [id number] [facility] JAY KRISHNA PATIENT MEDICARE (WNR) MEDICARE (M) PART A May 25, 2011 PART A [id number] [facility] JAY KRISHNA PATIENT MEDICARE (WNR) MEDICARE (M) PART A May 25, 2011 PART A [id number] JAY KRISHNA PATIENT MEDICARE (WNR) MEDICARE (M) PART A May 25, 2011 PART A [id number] [facility] [id number] JAY KRISHNA PATIENT MEDICARE (WNR) MEDICARE (M) PART A May 25, 2011 PART A [id number] [facility] JAY KRISHNA PATIENT MEDICARE (WNR) MEDICARE (M) PART A May 25, 2011 PART A [id number] [facility] [phone] JAY KRISHNA PATIENT Selected Encounter This section includes the information on record at [place] for the Encounter. Date/Time Encounter Type Encounter Description Reason Provider Source Feb 11, 2024 10:00 AM OFFICE O/P EST MOD 30 MIN PRIMARY CARE/MEDICINE ICD-10-CM K63.5 Polyp of colon LUIS OBRIEN Skyla Encounter Template Text not used by [place] Assessments - Encounter Diagnoses This section includes the primary and secondary diagnoses documented for the Encounter. Date/Time Primary/Secondary Diagnosis Diagnosis Name Provider Source Mar 02, 2024 05:17 PM PRIMARY Polyp of colon OBRIEN,WILL JAREN J [place] [facility] [place] [facility] Mar 02, 2024 05:17 PM SECONDARY Encounter for immunization SHOAIB NETTLES [place] [facility] [place] [facility] Mar 02, 2024 05:17 PM SECONDARY Essential (primary) hypertension OBRIEN,WILL JAREN J [place] [facility] [place] [facility] Mar 02, 2024 05:17 PM SECONDARY Iron deficiency anemia, unspecified OBRIEN,WILL JAREN J [place] [facility] [place] [facility] Mar 02, 2024 05:17 PM SECONDARY Other low back pain OBRIEN,WILL JAREN J [place] [facility] [place] [facility] Mar 02, 2024 05:17 PM SECONDARY Permanent atrial fibrillation OBRIEN,WILL JAREN J [place] [facility] [place] [facility] Mar 02, 2024 05:17 PM SECONDARY Type 2 diabetes mellitus without complications OBRIENFAVIO STEPHENSON [place] [facility] [place] [facility] Mar 02, 2024 05:17 PM SECONDARY Unspecified atrial fibrillation OBRIENFAVIO STEPHENSON [place] [facility] [place] [facility] Plan of Treatment: Future Appointments (+ 6 months) and Future Tests (+/- 45 days) The Plan of Treatment section includes future care activities for the patient from all [place] [facility] This section includes future appointments and future orders which are active, pending or scheduled. Future Appointments This section includes appointments that were scheduled to occur 6 months from the date of the Encounter, up to a maximum of 20 appointments. The data comes from all [place] treatment facilities. Appointment Date/Time Appointment Type Appointme nt Facility Name Mar 16, 2024 10:00 AM AMBULATORY - MEDICINE [place] [facility] [place] [facility] Mar 22, 2024 08:30 AM AMBULATORY - MEDICINE CA C [facility] [place] [facility] Apr 27, 2024 09:30 AM AMBULATORY - MEDICINE [place] C [facility] [place] [facility] Apr 27, 2024 10:00 AM AMBULATORY - MEDICINE [place] C [facility] [place] [facility] Apr 28, 2024 09:30 AM AMBULATORY - MEDICINE [place] C [facility] [place] [facility] May 03, 2024 08:00 AM AMBULATORY - MEDICINE CA C [facility] [place] [facility] May 10, 2024 10:00 AM AMBULATORY - MEDICINE CA C [facility] [place] [facility] June 29, 2024 10:30 AM AMBULATORY - MEDICINE CA C [facility] [place] [facility] Aug 08, 2024 09:30 AM AMBULATORY - MEDICINE [place] C [facility] [place] [facility] Aug 09, 2024 11:00 AM AMBULATORY - MEDICINE [place] C [facility] [place] [facility] Lab Results: +/- 30 days of the encounter This section includes the Chemistry and Hematology Lab Results on record with [place] for the patient. Radiology Reports and Pathology Reports are provided separately, in subsequent sections. Lab Results This section contains the Chemistry/Hematology Results that were resulted 30 days before or 30 daysafter the date of the Encounter. Date/Time Source Result Type Result - Unit Interpretation Reference Range Comment Feb 11, 2024 07:51 AM [facility] PSA Specimen Type: SERUM No comment entered. Ordering Provider: ANDREW OBRIEN AM Report Released Date/Time: Jan 29, 2024 02:25 PM Reporting Lab: [facility] [address] [facility] [address] Performing Lab: [address] [address] PSA 3.36 ng/mL 0.00-4.00 Feb 11, 2024 07:51 AM [facility] LIPID PANEL, NON FASTING Specimen Type: SERUM No comment entered. Ordering Provider: ANDREW OBRIEN AM Report Released Date/Time: Jan 29, 2024 02:25 PM Reporting Lab: [facility] [address] [facility] [address] Performing Lab: [address] [address] CHOLESTEROL 128 mg/dL TRIGLYCERIDE 81 mg/dL 0-150 LDL calculated 78 mg/dL 0-129 CHOL/HDL 3.8 HDL CHOLESTEROL 34 mg/dL L 40-60 Feb 11, 2024 07:51 AM [facility] CBC Specimen Type: BLOOD No comment entered. Ordering Provider: ANDREW OBRIEN AM Report Released Date/Time: Jan 29, 2024 02:25 PM Reporting Lab: [address] [address] Performing Lab: [address] [address] WBC 5.97 10*3/uL 4.50-11.00 RBC 5.12 10*6/uL 4.23-5.66 HGB 12.1 g/dL L 12.8-17 HCT 39.0 L 39.2-50.4 MCV 76.2 fL L 82-99 MCHC 31.0 g/dL 30.8-35.1 PLT 280 10*3/uL 140-360 RDW-CV 19.3 H 12.0-16.0 MCH 23.6 pg L 26.2-32.6 Feb 11, 2024 07:51 AM [facility] LIVER FUNCTION Specimen Type: SERUM No comment entered. Ordering Provider: ANDREW OBRIEN AM Report Released Date/Time: Jan 29, 2024 02:25 PM Reporting Lab: [facility] [address] [facility] [address] Performing Lab: [address] [address] PROTEIN,TOTAL 7.3 g/dL 6.0-8.3 ALBUMIN 4.0 g/dL 3.5-5.0 ALKALINE PHOSPHATASE 72 U/L 40-150 AST 19 U/L 5-34 ALT 14 U/L BILIRUBIN, TOTAL 1.0 mg/dL 0.2-1.2 Feb 11, 2024 07:51 AM [facility] BASIC METABOLIC PANEL (non-fasting) Specimen Type: SERUM No comment entered. Ordering Provider: ANDREW OBRIEN AM Report Released Date/Time: Jan 29, 2024 02:25 PM Reporting Lab: [address] [address] Performing Lab: [address] [address] UREA NITROGEN 11 mg/dL 7-25 GLUCOSE 110 mg/dL H 65-100 SODIUM 142 mmol/L 135-145 POTASSIUM 4.6 mmol/L 3.5-5.0 CHLORIDE 108 mmol/L 100-110 CO2 24 meq/L 20-30 CREATININE, Serum 0.84 mg/dL 0.50-1.40 eGFR(CKD-EPI 2020) >90 mL/min >60 Feb 11, 2024 07:51 AM [facility] PT & INR (PROTIME) Specimen Type: PLASMA No comment entered. Ordering Provider: ANDREW OBRIEN AM Report Released Date/Time: Jan 29, 2024 02:25 PM Reporting Lab: [facility] [address] [facility] [address] Performing Lab: [address] [address] INR 1.2 PROTIME 12.8 s 10.0-13.1 Feb 11, 2024 07:51 AM [facility] HEMOGLOBIN A1C PANEL Specimen Type: BLOOD Comment: Values obtained from A1C measurements can vary. For atypical A1C assays, a reported value of 7.0 could actually be between 6.72 and 7.28 if measured by a reference method. A reported value of 9.0 could actually be between 8.73 and 9.27. Ref: http://www.ngs p.org/CAPdata. asp Ordering Provider: ANDREW OBRIEN AM Report Released Date/Time: Jan 29, 2024 02:25 PM Reporting Lab: [address] [address] Performing Lab: [address] [address] HEMOGLOBIN A1C 5.3 4.0-5.6 Feb 11, 2024 07:51 AM [facility] MICROALBUMIN CREATININE RATIO PANEL Specimen Type: URINE No comment entered. Ordering Provider: ANDREW OBRIEN AM Report Released Date/Time: Jan 29, 2024 02:25 PM Reporting [facility]: [facility] [address] Performing Lab: [address] [address] MICROALBUMIN/C REATININE RATIO 7.9 mg/g 0-29.9 MICROALBUMIN,Q UANTITATIVE 1.8 mg/dL RR UNAVAIL CREATININE URINE 227.28 mg/dL Vital Signs: All taken on the encounter date This section contains inpatient and outpatient Vital Signs collected on the date of the Encounter. Date/Time Temperature Pulse Blood Pressure Respiratory Rate SP02 Pain Height Weight Body Mass Index Source Feb 11, 2024 10:25 AM 166/94 [place] [facility] [place] [facility] Feb 11, 2024 10:13 AM 166/[facility] [place] [facility] Feb 11, 2024 09:45 AM 98.1 110 180/110 20 99 7 75 [phone] 41 [facility] Immunizations: All administered on the encounter date This section contains immunizations associated to the Encounter. Immunization Series Date Issued Reaction Comments COVID-19 (MODERNA), MRNA, LN P-S, PF, 50 MCG/0.5 ML (AGES 12+ YEARS) Feb 11, 2024 PNEUMOCOCCAL CONJUGATE PCV20 , POLYSACCHARIDE [id number] CONJUGATE, ADJUVANT, PF Feb 11, 2024 Social History: Smoking Status (Most current) and Tobacco Use (All prior to encounter date) This section includes the most current, and the historical, smoking and tobacco- related health factors from the [place] facility where the Encounter took place. Current Smoking Status This section includes the most current smoking, or tobacco-related health factor, from the [place] facility where the Encounter took place. Date/Time Current Smoking Status Comment [facility] July 24, 2023 10:00 AM VA-TOBACCO QUIT 15 YRS OR MORE [place] [facility] [place] [facility] Tobacco Use History This section includes a history of the smoking, or tobacco-related health factors, that were collected on or before the date of the Encounter. The data comes from the [place] facility where the Encounter took place. Date/Time Smoking Status/Tobac co Use Comment [facility] July 24, 2023 10:00 AM VA-TOBACCO QUIT 15 YRS OR MORE [place] [facility] [place] [facility] July 14, 2022 03:30 PM VA-TOBACCO FORMER USER [facility] [place] [facility] July 14, 2022 03:30 PM VA-TOBACCO QUIT 15 YRS OR MORE [facility] [place] [facility] Aug 05, 2021 01:00 PM VA-TOBACCO FORMER USER [facility] [place] [facility] Aug 05, 2021 01:00 PM VA-TOBACCO QUIT 5 TO < 15 YRS [facility] [place] [facility] Sep 09, 2019 01:25 PM VA-TOBACCO FORMER USER [facility] [place] [facility] Sep 09, 2019 01:25 PM VA-TOBACCO QUIT 5 TO < 15 YRS [facility] [place] [facility] Dec 04, 2017 10:18 AM VA-TOBACCO FORMER USER [facility] [place] [facility] Dec 04, 2017 10:18 AM VA-TOBACCO QUIT 5 TO < 15 YRS [facility] [place] [facility] May 29, 2017 09:09 AM QUIT TOBACCO USE > 7 YEARS AGO [facility] [place] [facility] Apr 23, 2015 08:21 AM QUIT TOBACCO USE > 7 YEARS AGO [place] [facility] [place] [facility] Apr 23, 2015 08:21 AM QUIT TOBACCO USE 1-7 YEARS AGO [facility] [place] [facility] Mar 06, 2011 11:06 AM QUIT TOBACCO USE 1-7 YEARS AGO [facility] [place] [facility] Apr 08, 2010 10:56 AM CURRENT SMOKER cigar once in a while [facility] [place] [facility] Apr 08, 2010 10:56 AM V1-PT DECLINES REF TO TOBACCO CESS PRGM [place] [facility] [place] [facility] Apr 08, 2010 10:56 AM V1-PT DECLINES TOBACCO CESSATION MEDS [place] [facility] [place] [facility] Apr 08, 2010 10:56 AM V1-PT READY TO QUIT [facility]BACCO [facility] [place] [facility] Feb 21, 2009 09:16 AM CURRENT SMOKER cigar once in a while [facility] [place] [facility] Feb 21, 2009 09:16 AM V1-PT DECLINES REF TO TOBACCO CESS PR[facility] [place] [facility] Feb 21, 2009 09:16 AM V1-PT DECLINES TOBACCO CESSATION MEDS [facility] [place] [facility] Feb 21, 2009 09:16 AM V1-PT THINKING ABOUT QUIT TOBACCO USE [facility] [place] [facility] Dec 16, 2007 09:15 AM QUIT TOBACCO USE 1-7 YEARS AGO [facility] [place] [facility] Apr 01, 2007 11:08 AM QUIT TOBACCO USE 1-7 YEARS AGO [facility] [place] [facility] Sep 28, 2006 08:52 AM QUIT TOBACCO USE IN PAST YEAR [facility] [place] [facility] Apr 21, 2006 10:31 AM QUIT TOBACCO USE IN PAST YEAR August 2005 [facility] [place] [facility] Dec 16, 2005 10:02 AM CURRENT SMOKER OCCASIONAL CIGAR [facility] [place] [facility] May 19, 2001 03:50 PM CURRENT SMOKER see below [facility] [place] [facility] Encounter Notes: All associated encounter notes This section contains the clinical notes associated to the Encounter. Date/Time Encounter Note(s) Provider Source Feb 11, 2024 12:52 PM PRIMARY CARE NURSE PRACTITIONER OUTPATIENT NOTE: LOCAL TITLE: NURSE PRACTITIONER OUTPATIENT NOTE STANDARD TITLE: PRIMARY CARE NURSE PRACTITIONER OUTPATIENT NOTE DATE OF NOTE: FEB 11, 2024@12:52 ENTRY DATE: FEB 11, 2024@12:52:28 AUTHOR: JUAN OBRIEN COSIGNER: URGENCY: STATUS: COMPLETED DEPARTMENT OF [facility] Toll Free Number Primary Care Telephone Assistance can be reached at extension [phone] [facility] Health scheduling can be reached at extension [phone] [facility] [place] [facility] scheduling can be reached at ext [phone] FEB 11, 20[address]NA [address] [place], [place], [address] Thank you for coming in for your tests. Your recent test results are as follows: LAB CHEMISTRY & HEMATOLOGY Collection DT Specimen Test Name Result Units Ref Range 02/11/2024 07:51 URINE mALB/Cr 7.9 mg/G 0 - 29.9 MicroAl 1.8 mg/dL Ref: RR UNAVAIL CREATININE URINE 227.28 mg/dL 02/11/2024 07:51 PLASMA PROTIME 12.8 sec 10.0 - 13.1 INR 1.2 02/11/2024 07:51 SERUM PSA 3.36 ng/mL 0.00 - 4.00 02/11/2024 07:51 SERUM CREATININE, Serum 0.84 mg/dL 0.50 - 1.40 eGFR(CKD-EPI 2020 >90 mL/min Ref: >=60 SODIUM 142 mmol/L 135 - 145 POTASSIUM 4.6 mmol/L 3.5 - 5.0 CHLORIDE 108 mmol/L 100 - 110 CO2 24 mEq/L 20 - 30 UREA NITROGEN 11 mg/dL 7 - 25 GLUCOSE 110 H mg/dL 65 - 100 PROTEIN,TOTAL 7.3 g/dL 6.0 - 8.3 ALBUMIN 4.0 g/dL 3.5 - 5.0 ALK MERLIN 72 U/L 40 - 150 AST 19 U/L 5 - 34 BILIRUBIN, TOTAL 1.0 mg/dL 0.2 - 1.2 CHOLESTEROL 128 mg/dL <7 - 199 TRIGLYCERIDE 81 mg/dL 0 - 150 LDL calculated 78 mg/dL 0 - 129 CHOL/HDL 3.8 ALT 14 U/L <6 - 55 HDL CHOLESTEROL 34 L mg/dL 40 - 60 02/11/2024 07:51 BLOOD HEMOGLOBIN A1C 5.3 % 4.0 - 5.6 02/11/2024 07:51 BLOOD WBC 5.97 K/cmm 4.50 - 11.00 RBC 5.12 M/cmm 4.23 - 5.66 HGB 12.1 L g/dL 12.8 - 17 HCT 39.0 L % 39.2 - 50.4 MCV 76.2 L fl 82 - 99 MCH 23.6 L pg 26.2 - 32.6 MCHC 31.0 g/dL 30.8 - 35.1 RDW-CV 19.3 H % 12.0 - 16.0 PLT 280 K/cmm 140 - 360 I have reviewed your results. Thank you for allowing me to be a part of your health care team. Please call if you have any questions or concerns. Sincerely, JULIAN Gray DNP, KIARA Nurse Practitioner Primary Care PACT Seven /es/ JULIAN Mendes DNP, KIARA Primary Care Nurse Practitioner Signed: 02/11/2024 12:52 Receipt Acknowledged By: 02/11/2024 13:30 /es/ ADIN OWEN ADVANCED SITE INTERPRETER JUAN OBRIEN [facility] Feb 11, 2024 10:21 AM PREVENTIVE MEDICINE NURSING NOTE: LOCAL TITLE: CLINICAL REMINDERS/NURSING STANDARD TITLE: PREVENTIVE MEDICINE NURSING NOTE DATE OF NOTE: FEB 11, 2024@10:21 ENTRY DATE: FEB 11, 2024@10:21:45 AUTHOR: BOB NETTLES EXP COSIGNER: URGENCY: STATUS: COMPLETED Pneumococcal Conjugate Vaccine (PCV15/PCV20): PCV20 (Prevnar 20) Administered: PNEUMOCOCCAL CONJUGATE PCV20, POLYSACCHARIDE [id number] CONJUGATE, ADJUVANT, PF Date Administered: Feb 11, 2024 10:00 [employer]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 Lot: [id number] Exp Date: July 23, 2024 [facility]: [id number] Admin Route/Site: INTRAMUSCULAR/LEFT DELTOID Dosage: 0.5mL Vaccine Information Statement(s): COVID-19 MRNA VACCINE (12+ YRS) VIS Dec 10, 2023 ([place]) Order By: Policy Administered By: Bob Nettles Vaccine administered without complications. Influenza Immunization: The patient has received the seasonal influenza vaccine for the current season at another location. Documented: INFLUENZA, UNSPECIFIED FORMULATION Historical Date Administered: Nov 11, 2023 Outside Location: Outside Healthcare Provider Information Source: FROM OTHER PROVIDER // Bob Nettles MSN RN CNL Primary Care RN Signed: 02/11/2024 10:24 BOB NETTLES [place] [facility] [place] [facility] Feb 11, 2024 10:16 AM PRIMARY CARE NURSE PRACTITIONER OUTPATIENT NOTE: LOCAL TITLE: NURSE PRACTITIONER OUTPATIENT NOTE STANDARD TITLE: PRIMARY CARE NURSE PRACTITIONER OUTPATIENT NOTE DATE OF NOTE: FEB 11, 2024@10:16 ENTRY DATE: FEB 11, 2024@10:16:33 AUTHOR: JUAN OBRIEN EXP COSIGNER: URGENCY: STATUS: COMPLETED NURSE PRACTITIONER OUTPATIENT NOTE Has ADDENDA Chief complaint: Patient is a 64 year old . HPI: Pleasant male here to follow up. He did have colonoscopy and EGD. Seven days later he experienced a GIB and was admitted to [facility], given two transfussions. He is followed in the community, Dr. Modi. He is now on iron supp with vit c per his community PCP. Allergies: ERYTHROMYCIN The following VA and Non-VA [...] WHEN DRY Indication: TOE NAIL FUNGUS 4) HYDROCHLOROTHIAZIDE 25MG TAB TAKE ONE TABLET BY MOUTH EVERY ACTIVE DAY TO PREVENT FLUID/CONTROL BLOOD PRESSURE 5) METOPROLOL SUCCINATE 50MG SA TAB TAKE THREE TABLETS BY MOUTH ACTIVE ONCE DAILY FOR BLOOD PRESSURE/HEART Indication: FOR HIGH BLOOD PRESSURE 6) METRONIDAZOLE 0.75% TOP GEL APPLY SMALL AMOUNT TOPICALLY ACTIVE TWICE DAILY Indication: FOR ACNE ROSACEA 7) RIVAROXABAN 20MG TAB TAKE ONE TABLET BY MOUTH EVERY EVENING ACTIVE WITH FOOD 8) SILDENAFIL CITRATE 100MG TAB TAKE ONE TABLET BY MOUTH ONCE ACTIVE DAILY TAKE 1 HOUR PRIOR TO SEXUAL ACTIVITY Indication: FOR ERECTILE DYSFUNCTION 9) SIMVASTATIN 80MG TAB TAKE ONE-HALF TABLET BY MOUTH EVERY ACTIVE EVENING FOR CHOLESTEROL Pending Outpatient Medications Status 1) PANTOPRAZOLE NA 40MG EC TAB TAKE ONE TABLET BY MOUTH TWICE PENDING DAILY BEFORE A MEAL Indication: FOR EXCESSIVE PRODUCTION OF STOMACH ACID 2) VALSARTAN 160MG TAB TAKE ONE TABLET BY MOUTH ONCE DAILY PENDING Indication: FOR HIGH BLOOD PRESSURE Inactive Outpatient Medications Status 1) VALSARTAN 80MG TAB TAKE ONE TABLET BY MOUTH ONCE DAILY Active Non-VA Medications Status 1) Non-VA OXYCODONE HCL 5MG TAB NOT SA 5MG BY MOUTH TWICE ACTIVE A WEEK NEEDED 13 Total Medications Review of Systems: Constitutional: (-)for Fevers, chills, weakness, nights sweats On examination: 98.1 F [36.7 C] (02/11/2024 09:45)166/94 (02/11/2024 10:13)110 (02/11/2024 09:45)20 (02/11/2024 09:45)7 (02/11/2024 09:45)BMI: 41.0327 lb [148.32 kg] (02/11/2024 09:45) is alert and oriented X3 Cardiovasc: 2plus carotids without bruits, no JVD Heart Reguler rate and rhythm NL S1S2 no S3 or murmur Respiration: Normal respiratory effort, lungs clear ABD: Benign normal active bowel sounds no HSM no rebound or referred pain EXT: no clubbing, edema, or cyanosis All diagnostics from past month were reviewed with patient. Assessment/plan: Active problems - Computerized Problem List is the source for the followin. Polyp of colon - colonoscopy 10/28/2023, one polyp, repeat in 5 yrs. 2. Atrial fibrillation - apical rate 92, on BB and A/C. 3. Diabetes mellitus (SNOMED CT 73115360) - Controlled. 4. Benign essential hypertension - he reports taking meds as ordered, clarified valsartan, he reports higher at home as well, will refer to CPP. 5. Obesity (SNOMED CT [id number]) - Making efforts with diet, on ozempic 6. Hyperlipidemia - labs are pending. 7. Chronic Low Back Pain - manages with non [place] opioid Health Care Maintenance: prevnar 20 and covid. 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 Follow up visit in 6 mos. Sexual Orientation: The patient thinks of their sexual orientation as: Straight or Heterosexual HTN Assess for Elevated BP>=140/90: Repeat blood pressure: 166/94 Patient referred to PACT pharmacist for hypertension treatment. Medication Reconciliation: Outpatient: Has the patient been taking medications as documented in the EMLR? YES: The patient has been taking medications as documented in the EMLR. Essential Medication List for Review used to complete this medication reconciliation. INCLUDED IN THIS LIST: Alphabetical list of active outpatient prescriptions dispensed from this [place] (local) and dispensed from another [place] or [facility] facility (remote) as well as [...] whether with a VA or non-VA provider. /daniela/ JULIAN Mendes DNP, KIARA Primary Care Nurse Practitioner Signed: 02/11/2024 10:26 02/11/2024 ADDENDUM STATUS: COMPLETED anemia s/p GIB - CBC today noted, stable. He is iron supp with vit c. He is following with his non va PCP. /JULIAN Hayes DNP, KIARA Primary Care Nurse Practitioner Signed: 02/11/2024 10:28 [facility]
--- OUTSIDE RECORDS SUMMARY | 2024-05-04 02:26 | XMS_ITS | Encounter Summary ---
Author Name [facility] [place] [facility] [place] [facility] [place] [facility] [place] Address [address] [place] [address] Care Team Providers Care Lead Painter Name Role Phone JOHNY GOMEZ [facility] Insurance Providers: All historical and [...] JESSE FAMIL Y Mar 07, 2000 105 [id number] [phone] JAY KRISHNA PATIENT ANTHEM BCBS FEDERAL PREFERRED PROVIDER ORGANIZAT ION (PPO) STAND JESSE FAMIL Y Mar 07, 2000 105 [id number] JAY KRISHNA PATIENT ANTHEM BCBS FEDERAL PREFERRED PROVIDER ORGANIZAT ION (PPO) STAND JESSE SELF Mar 07, 2000 105 [id number] JAY KRISHNA PATIENT BCBS [place] FEP PREFERRED PROVIDER ORGANIZAT ION (PPO) STAND JESSE FAMIL Y Mar 07, 2000 105 [id number] JAY KRISHNA PATIENT [place] PREFERRED PROVIDER ORGANIZAT ION (PPO) STAND JESSE FAMIL Y Mar 07, 2000 105 [id number] JAY KRISHNA PATIENT [place] DENTAL DENTAL INSURANCE STAND JESSE Mar 07, 2000 DENTAL [id number] JAY KRISHNA PATIENT [place] FEP PREFERRED PROVIDER ORGANIZAT ION (PPO) STAND JESSE FAMIL Y Mar 07, 2000 105 [id number] 15 JAY KRISHNA PATIENT [place] FEDERAL PREFERRED PROVIDER ORGANIZAT ION (PPO) STAND JESSE FAMIL Y Mar 07, 2000 105 [id number] JAY KRISHNA PATIENT [place] FEP BCBS PRESCRIPT ION CAREM ARK FEPRX PLAN Mar 07, 2000 [id number] JAY KRISHNA PATIENT [place] FEPRX PLAN PRESCRIPT ION CAREM ARK FEPRX Feb 23, 2010 [id number] JAY KRISHNA PATIENT [place] FEPRX PLAN PRESCRIPT ION CAREM ARK FEPRX Mar 07, 2000 [id number] JAY KRISHNA PATIENT [place]-F EP BCBS PRESCRIPT ION BCBS FEP Feb 23, 2010 [id number] JAY KRISHNA PATIENT [place]-F EP BCBS PRESCRIPT ION FEP CAREM ARK Feb 23, 2010 [id number] JAY KRISHNA PATIENT [place]-F EP BCBS PRESCRIPT ION BCBS FEP PLAN Feb 23, 2010 [id number] JAY KRISHNA PATIENT MEDICARE ([facility] MEDICARE () PART A May 25, 2011 PART A [id number] [facility] JAY KRISHNA PATIENT MEDICARE ([facility] MEDICARE () PART A May 25, 2011 PART A [id number] [id number] JAY KRISHNA PATIENT MEDICARE ([facility] MEDICARE () PART A May 25, 2011 PART A [id number] [facility] JAY KRISHNA PATIENT MEDICARE (WNR) MEDICARE (M) PART A May 25, 2011 PART A [id number] JAY KRISHNA PATIENT MEDICARE (WNR) MEDICARE (M) PART A May 25, 2011 PART A [id number] [facility] JAY KRISHNA PATIENT MEDICARE (WNR) MEDICARE (M) PART A May 25, 2011 PART A [id number] [facility] [phone] JAY KRISHNA PATIENT MEDICARE (WNR) MEDICARE (M) PART A May 25, 2011 PART A [id number] [facility] JAY KRISHNA PATIENT MEDICARE (WNR) MEDICARE (M) PART A May 25, 2011 PART A [id number] JAY KRISHNA PATIENT Selected Encounter This section includes the information on record at [place] for the Encounter. Date/Time Encounter Type Encounter Description Reason Provider Source Aug 11, 2023 08:30 AM OFFICE O/P EST MOD 30 MIN PRIMARY CARE/MEDICINE ICD-10-CM I48.21 Permanent atrial fibrillation GOEMZ,WILL JAREN Obrien [facility] Encounter Template Text not used by [place] Assessments - Encounter Diagnoses This section includes the primary and secondary diagnoses documented for the Encounter. Date/Time Primary/Secondary Diagnosis Diagnosis Name Provider Source Sep 13, 2023 11:51 AM PRIMARY Permanent atrial fibrillation GOMEZ,WILL [facility]AREN [facility] [place] [facility] Sep 13, 2023 11:51 AM SECONDARY Essential (primary) hypertension GOMEZ,WILL JAREN J [facility] [place] [facility] Sep 13, 2023 11:51 AM SECONDARY Male erectile dysfunction, unspecified GOMEZ,WILL JAREN J [facility] [place] [facility] Sep 13, 2023 11:51 AM SECONDARY Other obesity GOMEZ,WILL JAREN J [facility] [place] [facility] Sep 13, 2023 11:51 AM SECONDARY Type 2 diabetes mellitus without complications GOMEZ,WILL JAREN J [facility] [facility] Sep 13, 2023 11:51 AM SECONDARY Unspecified atrial fibrillation GOMEZ,WILL JAREN J [facility] Plan of Treatment: Future Appointments (+ 6 months) and Future Tests (+/- 45 days) The Plan of Treatment section includes future care activities for the patient from all [place] [facility]. This section includes future appointments and future orders which are active, pending or scheduled. Future Appointments This section includes appointments that were scheduled to occur 6 months from the date of the Encounter, up to a maximum of 20 appointments. The data comes from all [place] treatment facilities. Appointment Date/Time Appointment Type Appointme nt Facility Name Sep 23, 2023 08:30 AM AMBULATORY - MEDICINE [facility] Oct 01, 2023 11:00 AM AMBULATORY MEDICINE [facility] NTRL TRN [facility] Dec 25, 2023 11:30 AM [facility] Lab Results: +/- 30 days of the encounter This section includes the Chemistry and Hematology Lab Results on record with VA for the patient. Radiology Reports and Pathology Reports are provided separately, in subsequent sections. Lab Results This section contains the Chemistry/Hematology Results that were resulted 30 days before or 30 daysafter the date of the Encounter. Date/Time Source Result Type Result - Unit Interpretation Reference Range Comment Aug 11, 2023 08:54 AM [facility] PSA Specimen Type: SERUM No comment entered. Ordering Provider: ANDREW GOMEZ AM Report Released Date/Time: Aug 11, 2023 08:42 AM Reporting Lab: [facility] [address] [address] Performing Lab: [facility] [address] PSA 3.60 ng/mL 0.00-4.00 Aug 11, 2023 08:54 AM [facility] LIPID PANEL, NON FASTING Specimen Type: SERUM No comment entered. Ordering Provider: ANDREW GOMEZ AM Report Released Date/Time: Aug 11, 2023 08:42 AM Reporting Lab: [facility] [address] [address] Performing Lab: [address] [address] CHOLESTEROL 112 mg/dL TRIGLYCERIDE 127 mg/dL 0-150 LDL calculated 52 mg/dL 0-129 CHOL/HDL 3.2 HDL CHOLESTEROL 35 mg/dL L 40-60 Aug 11, 2023 08:54 AM [facility] CBC Specimen Type: BLOOD No comment entered. Ordering Provider: ANDREW GOMEZ AM Report Released Date/Time: Aug 11, 2023 08:42 AM Reporting Lab: [facility] [address] [address] Performing Lab: [facility] [address] [address] WBC 6.62 10*3/uL 4.50-11.00 RBC 4.77 10*6/uL 4.23-5.66 HGB 15.9 g/dL 12.8-17 HCT 45.1 39.2-50.4 MCV 94.5 fL 82-99 MCHC 35.3 g/dL H 30.8-35.1 PLT 229 10*3/uL 140-360 RDW-CV 12.9 12.0-16.0 MCH 33.3 pg H 26.2-32.6 Aug 11, 2023 08:54 AM [facility] PT & INR (PROTIME) Specimen Type: PLASMA No comment entered. Ordering Provider: ANDREW GOMEZ AM Report Released Date/Time: Aug 11, 2023 08:42 AM Reporting Lab: [facility] [address] [address] Performing Lab: [address] [address] INR 2.1 PROTIME 23.2 s H 10.0-13.1 Aug 11, 2023 08:54 AM [facility] BASIC METABOLIC PANEL (non-fasting) Specimen Type: SERUM No comment entered. Ordering Provider: ANDREW GOMEZ AM Report Released Date/Time: Aug 11, 2023 08:42 AM Reporting Lab: [facility] [address] [address] Performing Lab: [address] [address] UREA NITROGEN 10 mg/dL 7-25 GLUCOSE 114 mg/dL H 65-100 SODIUM 137 mmol/L 135-145 POTASSIUM 4.0 mmol/L 3.5-5.0 CHLORIDE 106 mmol/L 100-110 CO2 22 meq/L 20-30 CREATININE, Serum 0.86 mg/dL 0.50-1.40 eGFR(CKD-EPI 2020) >90 mL/min >60 Aug 11, 2023 08:54 AM [facility] LIVER FUNCTION Specimen Type: SERUM No comment entered. Ordering Provider: ANDREW GOMEZ AM Report Released Date/Time: Aug 11, 2023 08:42 AM Reporting Lab: [address] [address] Performing Lab: [address] [address] PROTEIN,TOTAL 7.1 g/dL 6.0-8.3 ALBUMIN 3.9 g/dL 3.5-5.0 ALKALINE PHOSPHATASE 66 U/L 40-150 AST 23 U/L 5-34 ALT 20 U/L BILIRUBIN, TOTAL 1.9 mg/dL H 0.2-1.2 BILIRUBIN, DIRECT 0.7 mg/dL H 0-0.5 Aug 11, 2023 08:54 AM [facility] MICROALBUMIN CREATININE RATIO PANEL Specimen Type: URINE No comment entered. Ordering Provider: ANDREW GOMEZ AM Report Released Date/Time: Aug 11, 2023 08:42 AM Reporting Lab: [address] [address] Performing Lab: [address] [address] MICROALBUMIN/C REATININE RATIO 7.1 mg/g 0-29.9 MICROALBUMIN,Q UANTITATIVE 2.5 mg/dL RR UNAVAIL CREATININE URINE 349.96 mg/dL Aug 11, 2023 08:54 AM [facility] HEMOGLOBIN A1C PANEL Specimen Type: BLOOD Comment: Values obtained from A1C measurements can vary. For atypical A1C assays, a reported value of 7.0 could actually be between 6.72 and 7.28 if measured by a reference method. A reported value of 9.0 could actually be between 8.73 and 9.27. Ref: http://www.ngs p.org/CAPdata. asp Ordering Provider: ANDREW GOMEZ AM Report Released Date/Time: Aug 11, 2023 08:42 AM Reporting Lab: [address] [address] Performing Lab: [address] [address] HEMOGLOBIN A1C 5.0 4.0-5.6 July 24, 2023 09:55 AM [facility] GLUCOSE, Fingerstick Specimen Type: BLOOD Comment: For GLU FinTest performed by: Ary Arroyo For GLU Fin Meter #: [id number] Ordering Provider: ANDREW GOMEZ AM Report Released Date/Time: July 24, 2023 10:10 AM Reporting Lab: [address] [address] Performing Lab: [address] [address] GLUCOSE, Fingerstick 112 mg/dL H 65-100 Vital Signs: All taken on the encounter date This section contains inpatient and outpatient Vital Signs collected on the date of the Encounter. Date/Time Temperature Pulse Blood Pressure Respiratory Rate SP02 Pain Height Weight Body Mass Index Source Aug 11, 2023 08:22 AM 98.3 100 133/89 20 99 5 75 331 41 [facility] Social History: Smoking Status (Most [...] 24, 2023 10:00 AM VA-TOBACCO FORMER USER [facility] Tobacco Use History This section includes a history of the smoking, or tobacco-related health factors, that were collected on or before the date of the Encounter. The data comes from the [place] facility where the Encounter took place. Date/Time Smoking Status/Tobac co Use Comment Facility July 24, 2023 10:00 AM VA-TOBACCO QUIT 15 YRS OR MORE [place] [facility] [place] [facility] July 14, 2022 03:30 PM VA-TOBACCO FORMER USER [place] [facility] [place] [facility] July 14, 2022 03:30 PM VA-TOBACCO QUIT 15 YRS OR MORE [place] [facility] [place] [place] [facility] Aug 05, 2021 01:00 PM VA-TOBACCO FORMER USER [place] [facility] [place] [place] [facility] Aug 05, 2021 01:00 PM VA-TOBACCO QUIT 5 TO < 15 YRS [place] [facility] [place] [place] [facility] Sep 09, 2019 01:25 PM VA-TOBACCO FORMER USER [place] [facility] [place] [place] [facility] Sep 09, 2019 01:25 PM VA-TOBACCO QUIT 5 TO < 15 YRS [place] [facility] [place] [place] [facility] Dec 04, 2017 10:18 AM VA-TOBACCO FORMER USER [place] [facility] [place] [place] [facility] Dec 04, 2017 10:18 AM VA-TOBACCO QUIT 5 TO < 15 YRS PR [facility] [place] [place] [facility] May 29, 2017 09:09 AM QUIT TOBACCO USE > 7 YEARS AGO [place] [facility] [place] [place] [facility] Apr 23, 2015 08:21 AM QUIT TOBACCO USE > 7 YEARS AGO [facility] [place] [place] [facility] Apr 23, 2015 08:21 AM QUIT TOBACCO USE 1-7 YEARS AGO PR [facility] [place] [place] [facility] Mar 06, 2011 11:06 AM QUIT TOBACCO USE 1-7 YEARS AGO [place] [facility] [place] [facility] Apr 08, 2010 10:56 AM CURRENT SMOKER cigar once in a while [place] [facility]TR [place] [facility] Apr 08, 2010 10:56 AM V1-PT DECLINES REF TO TOBACCO CESS PRGM PR [facility] [place] [place] [facility] Apr 08, 2010 10:56 AM V1-PT DECLINES TOBACCO CESSATION MEDS PR [facility]TR [place] [place] [facility] Apr 08, 2010 10:56 AM V1-PT READY TO QUIT TOBACCO USE PR [facility]TR [place] [facility] Feb 21, 2009 09:16 AM CURRENT SMOKER cigar once in a while [facility] Feb 21, 2009 09:16 AM V1-PT DECLINES REF TO TOBACCO CESS PRGM [facility] Feb 21, 2009 09:16 AM V1-PT DECLINES TOBACCO CESSATION MEDS [facility] Feb 21, 2009 09:16 AM V1-PT THINKING ABOUT QUIT TOBACCO USE [facility] Dec 16, 2007 09:15 AM QUIT TOBACCO USE 1-7 YEARS AGO [facility] Apr 01, 2007 11:08 AM QUIT TOBACCO USE 1-7 YEARS AGO [facility] Sep 28, 2006 08:52 AM QUIT TOBACCO USE IN PAST YEAR [facility] Apr 21, 2006 10:31 AM QUIT TOBACCO USE IN PAST YEAR August 2005 [facility] Dec 16, 2005 10:02 AM CURRENT SMOKER OCCASIONAL CIGAR [facility] May 19, 2001 03:50 PM CURRENT SMOKER see below [facility] Encounter Notes: All associated encounter notes This section contains the clinical notes associated to the Encounter. Date/Time Encounter Note(s) Provider Source Aug 11, 2023 08:43 AM PRIMARY CARE NURSE PRACTITIONER OUTPATIENT NOTE: LOCAL TITLE: NURSE PRACTITIONER OUTPATIENT NOTE STANDARD TITLE: PRIMARY CARE NURSE PRACTITIONER OUTPATIENT NOTE DATE OF NOTE: AUG 11, 2023@08:43 ENTRY DATE: AUG 11, 2023@08:43:20 AUTHOR: JOHNY GOMEZ COSIGNER: URGENCY: STATUS: COMPLETED Chief complaint: Patient is a 63 year old . HPI: Pleasant male here to follow up. At our last visit he was sent to the ER with vomiting, nausea dx with gastritis. He is having some post prandial bloating, some reflux when in bed. He stops food around 6pm and goes to sleep around 9pm. He is followed in the community and has an EGD scheduled. Allergies: ERYTHROMYCIN The following VA and Non-VA [...] EVERY DAY TO PREVENT FLUID/CONTROL BLOOD PRESSURE Active Non-VA Medications Status 1) Non-VA OXYCODONE HCL 5MG TAB NOT SA 5MG BY ACTIVE MOUTH TWICE A WEEK NEEDED 2) Non-VA SEMAGLUTIDE (OZEMPIC) PA-F INJ,SOLN ACTIVE SUBCUTANEOUSLY 11 Total Medications Review of Systems: Constitutional: (-)for Fevers, chills, weakness, nights sweats On examination: 98.3 F [36.8 C] (08/11/2023 08:22)133/89 (08/11/2023 08:22)100 (08/11/2023 08:22)20 (08/11/2023 08:22)5 (08/11/2023 08:22)BMI: 41.5331 lb [150.14 kg] (08/11/2023 08:22) [place] is alert and oriented X3 Cardiovasc: 2plus carotids without bruits, no JVD Heart Reguler rate and reg irreg rhythm NL S1S2 no S3 or murmur Respiration: Normal respiratory effort, lungs clear ABD: Benign normal active bowel sounds no HSM no rebound or referred pain EXT: no clubbing, edema, or cyanosis Assessment/plan: Active problems - Computerized Problem List is the source for the followin. Atrial fibrillation - stable 2. Primary erectile dysfunction - sildenafil helpful 3. Diabetes mellitus (SNOMED CT 42867872) - labs today, wt loss noted since starting ozempic, managed non va 4. Benign essential hypertension (SNOMED CT 5895037) - repeat 134/82 5. Chronic Low Back Pain - chronic, manages with oxycodone, tries to stay active Review of medial record = 5mins Time spent with Patient including shared decision making = 20 mins Post visit documentation = 5mins Total time = 30 mins Follow up visit in 6 mos. Alert to PACT RN - Labs as necessary to address clinical status. PAVE Foot Check: A complete foot check was completed at this encounter. VISUAL INSPECTION: Includes inspection for skin breaks, deformity, erythema, trauma, pallor on elevation, dependent rubor, nail deformities, extensive callus and pitting edema. Visual exam results: Normal Comment: right lower ext amputation PEDAL PULSES: Includes palpation of dorsalis and posterior tibial pulses and signs/symptoms of vascular compromise like pain, pallor, parasthesia or paralysis. Present (even if diminished) SENSORY CHECK: Includes 10 gram Monofilament ([place]) test of sensation. Intact (Greater than or equal to 80% of sites checked) Abnormal (Less than 80% of sites checked): Intact LOW-RISK: LOW RISK INFORMATION PROVIDED: 1. Advised patient not to walk barefoot. 2. Explained the importance of daily foot checks for changes. 3. Stressed the importance of daily foot hygiene, including bathing and complete drying. Medication Reconciliation: Outpatient: Has the patient been taking medications as documented in the EMLR? YES: The patient has been taking medications as documented in the EMLR. Essential Medication List for Review used to complete this medication reconciliation. INCLUDED IN THIS LIST: Alphabetical list of active outpatient prescriptions dispensed from this [place] (local) and dispensed from another [place] or [facility] facility (remote) as well as inpatient orders [...] next appointment, whether with a VA or non-PR provider. /daniela/ Johny Gomez DNP, AUTOMATIC TELLER MACHINE SERVICER-BC, CNL Primary Care Nurse Practitioner Signed: 08/11/2023 08:54 JOHNY GOMEZ [place] CNTL [facility]
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
--- OUTSIDE RECORDS SUMMARY | 2024-05-04 02:26 | XMS_ITS | Continuity of Care Document ---
Author Organization [facility], Main Office Address [address] [facility] [place] [address] Care Team Providers Care Sales Intern Name Role Phone MENDY HADLEY Orthopedic Surgeon [phone] GASPER SANCHES Internal Medicine [phone] WADE DOSHI Staple Cutter [phone] [facility] Referring Provider KEN HINES Primary Care Provider [facility] Fire Coordinator Assessment No assessment recorded. Plan of Treatment Reminders Order Date Submit Date Provider Last Modified By Organization Details Last Modified Time Details Appointments None recorded. Lab lipid panel, serum 2024 [facility] (Centralized Electronic Ordering - All Locations), Patient Can Go To The Location Of Their Choice, 10:40:57 CBC w/ auto diff 2024 025 [facility] (Centralized Electronic Ordering - All Locations), Patient Can Go To The Location Of Their Choice, 10:40:16 iron + total iron-bindin g capacity (TIBC), serum 2024 025 [facility] (Centralized Electronic Ordering - All Locations), Patient Can Go To The Location Of Their Choice, 10:40:16 ferritin, serum or plasma 2024 025 [facility] (Centralized Electronic Ordering - All Locations), Patient Can Go To The Location Of Their Choice, 10:40:17 Referral None recorded. Procedures None recorded. Surgeries None recorded. Imaging None recorded. Medication Orders oxycodone 5 mg tablet 2024 025 [facility][id number], [address] [place], [place], [id number], 10:51:42 oxycodone 5 mg tablet 2024 025 [facility] #[id number], [address] [place], [place], [id number], 10:51:41 oxycodone 5 mg tablet 2024 [facility] #[id number], [address] [place], [place], [id number], 10:51:46 metoprolol succinate ER 200 mg tablet,exte nded release 24 hr 2024 [facility] #[id number], [address] [place], [place], [id number], 10:39:34 amoxicillin 500 mg capsule 2024 [facility] #[id number], [address] [place], [place], [id number], 10:39:04 Patient TargetsNo targets recorded. Patient Instructions Encounter Date Encounter Id Patient Instructions Last Modified By Organization Details Last Modified Time 04/26/2024 [id number] high cholesterol: care instructions [email or web address] Not available 04/26/2024 10:40:55 iron deficiency anemia: care instructions [email or web address] Not available 04/26/2024 10:40:11 Reason for Referral None Reported. Problems Name Problem SNOMED Code Status Onset Date Resolution Date Notes Provider Name and Address Organization Details Recorded Time Atrial fibrilla tion 88471755 Active Payal horne [place] - [facility] 0 11:26:13 Anxiety state 401615900 Active Payal horne [facility] 0 11:26:13 Tobacco dependen ce syndrome 83014266 Completed 06/19/2014 Antonio horne [facility] 6 12:16:17 Single major depressi ve episode Completed 10/31/2020 Removal Reason: more specific ity Ken Hines MD [address] [facility] [address], [place], [address] , [facility] 1 10:22:06 Type 2 diabetes mellitus without complica tion 199328124 Completed 01/04/2014 Antonio horne [facility] 6 12:16:17 Uncontro lled type 2 diabetes mellitus 716191158 Completed 02/28/2020 Removal Reason: now controll ed Ken Hines MD [address] [facility] [address], [place], [address] , [facility] 1 18:32:40 Impotenc e of organic origin Completed 201209/06/2013 RECORDED 06/02/19 13 1:14PM BY DAVID RODRÍGUEZ MA, ANNOTATI ON/ADDEN DUM Antonio horne [facility] 6 12:16:17 Gastroes ophageal reflux disease 159395146 Active Payal Kuhn ozzie [facility] 0 11:26:13 Malaise and fatigue 129711475 Completed 08/07/2016 Radha horne [facility] 7 10:32:54 Influenz a vaccine needed 10920408261 06 Completed 201009/06/2013 RECORDED 01/15/20 11 9:55AM BY ANTONIO SANCHEZ MD, OFFICE VISIT Antonio horne [facility] 6 12:16:17 Ulcer of heel 084418826 Active Payal Kuhn null, [facility] 0 11:26:13 Adult health examinat ion Completed 201209/06/2013 RECORDED 06/02/19 13 1:14PM BY DAVID RODRÍGUEZ MA, ANNOTATI ON/ADDEN DUM Antonio D'Alessand ro null, [facility] 6 12:16:17 Follow-u p encounte r Completed 201109/06/2013 RECORDED 01/19/20 12 9:17AM BY DAVID RODRÍGUEZ MA, ANNOTATI ON/ADDEN DUM Antonio D'Alessand ro null, [facility] 6 12:16:17 Glucose level outside referenc e range 342133882 Completed 201109/06/2013 RECORDED 09/25/19 12 2:57PM BY ANNETTE HULL MA, ANNOTATI ON/ADDEN DUM Antonio D'Alessand ro null, [facility] 6 12:16:17 Hyperlip idemia 58476326 Active Payal Kuhn null, [facility] 0 11:26:13 [facility] hyperten deangelo 33161300 Active Payal Kuhn null, [facility] 0 11:26:13 Impaired fasting glycemia 544330151 Completed 201109/06/2013 RECORDED 01/19/20 12 9:17AM BY DAVID RODRÍGUEZ MA, ANNOTATI ON/ADDEN DUM Antonio D'Alessand ro null, [facility] 6 12:16:17 Insomnia 322387368 Active Payal Kuhn null, [facility] 0 11:26:13 Laborato ry procedur e performe d 977711846 Completed 201209/06/2013 RECORDED 06/02/19 13 1:14PM BY DAVID RODRÍGUEZ MA, ANNOTASHLEY ON/ADDEN DUM Antonio D'Alessand ro null, [facility] 6 12:16:17 Administ ration of tetanus vaccine Completed 201109/06/2013 RECORDED 09/25/19 12 2:57PM BY ANNETTE HULL MA, MARTITAATI ON/ADDEN DUM Antonio Saunders ro null, [facility] 6 12:16:17 Idiopath ic peripher al neuropat hy 61485721 Completed 01/04/2014 Antonio jj null, [facility] 6 12:16:17 Morbid obesity 978715143 Active Payalzoran horne, [facility] 0 11:26:13 Osteoart hritis of knee 427131914 Completed 201109/06/2013 STORY: RIGHT KNEE, END STAGE, NEEDS TKR; RECORDED 01/19/20 12 9:17AM BY DAVID RODRÍGUEZ MA, ANNOTATI ON/ADDEN [facility] Antonio jj null, [facility] 6 12:16:17 Osteomye litis of ankle AND/OR foot 79825267 Active Payalzoran horne, [facility] 0 11:26:13 Pre-surg jhonatan evaluati on Completed 201109/06/2013 RECORDED 01/19/20 12 9:17AM BY DAVID RODRÍGUEZ MA, MARTITAATI ON/ADD DUM Antonio jj null, [facility] 6 12:16:17 Screenin g for malignan t neoplasm of colon Completed 201109/06/2013 RECORDED 09/25/19 12 2:57PM BY ANNETTE HULL MA, ANNOTATI ON/ADDEN DUM Antonio jj null, [facility] 6 12:16:18 Dermatop hytosis of the body Completed 201109/06/2013 RECORDED 09/25/19 12 2:57PM BY ANNETTE HULL MA, ANNOTATI ON/ADDEN DUM Antonio Saunders ro null, [facility] 6 12:16:17 Tobacco dependen ce syndrome 29810174 Completed 201109/06/2013 STORY: PT SMOKES RARELY; RECORDED 01/19/20 12 9:17AM BY DAVID RODRÍGUEZ MA, MARTITAATI ON/ADDEN DUM Antonio Saunders ro null, [facility] 6 12:16:17 Impotenc e of organic origin Completed 201209/29/2013 RECORDED 06/02/19 13 1:14PM BY DAVID RODRÍGUEZ MA, IAN ON/ADDEN DUM Antonio Saunders ro null, [facility] 6 12:16:17 Influenz a vaccine needed 51425855957 06 Completed 201009/29/2013 RECORDED 01/15/20 11 9:55AM BY ANTONIO SANCHEZ MD, OFFICE VISIT Antonio Saunders ro null, [facility] 6 12:16:17 Adult health examinat ion Completed 201209/29/2013 RECORDED 06/02/19 13 1:14PM BY DAVID RODRÍGUEZ MA, IAN ON/ADDEN DUM Antonio Saunders ro null, [facility] 6 12:16:17 Follow-u p encounte r Completed 201109/29/2013 RECORDED 01/19/20 12 9:17AM BY DAVID RODRÍGUEZ MA, IAN ON/ADDEN DUM Antonio Saunders ro null, [facility] 6 12:16:17 Glucose level outside referenc e range 890554671 Completed 201109/29/2013 RECORDED 09/25/19 12 2:57PM BY ANNETTE HULL MA, IAN ON/ADDEN DUM Antonio Saunders ro null, [facility] 6 12:16:17 Impaired fasting glycemia 959523438 Completed 201109/29/2013 RECORDED 01/19/20 12 9:17AM BY DAVID RODRÍGUEZ MA, ANNOTATI ON/ADDEN DUM Antonio WebsterAlessand ro null, [facility] 6 12:16:17 Laborato ry procedur e performe d 906299602 Completed 201209/29/2013 RECORDED 06/02/19 13 1:14PM BY DAVID RODRÍGUEZ MA, ANNOTATI ON/ADDEN DUM Antonio [place]'Alessand ro null, [facility] 6 12:16:17 Administ ration of tetanus vaccine Completed 201109/29/2013 RECORDED 09/25/19 12 2:57PM BY ANNETTE HULL MA, ANNOTATI ON/ADDEN DUM Antonio WebsterAlessand ro null, [facility] 6 12:16:17 Osteoart hritis of knee 843364553 Completed 201109/29/2013 STORY: RIGHT KNEE, END STAGE, NEEDS TKR; RECORDED 01/19/20 12 9:17AM BY DAVID RODRÍGUEZ MA, ANNOTATI ON/ADDEN DUM Antonio [place]'Alessand ro null, [facility] 6 12:16:17 Pre-surg jhonatan evaluati on Completed 201109/29/2013 RECORDED 01/19/20 12 9:17AM BY DAVID RODRÍGUEZ MA, ANNOTATI ON/ADDEN DUM Antonio WebsterAlessand ro null, [facility] 6 12:16:17 Screenin g for malignan t neoplasm of colon Completed 201109/29/2013 RECORDED 09/25/19 12 2:57PM BY ANNETTE HULL MA, IAN ON/ADDEN DUM Antonio WebsterAlessand ro null, [facility] 6 12:16:18 Dermatop hytosis of the body Completed 201109/29/2013 RECORDED 09/25/19 12 2:57PM BY ANNETTE HULL MA, MARTITAATI ON/ADDEN DUM Antonio WebsterAlelisette ro null, [facility] 6 12:16:17 Impotenc e of organic origin Completed 201209/30/2013 RECORDED 06/02/19 13 1:14PM BY DAVID RODRÍGUEZ MA, ANNOTATI ON/ADDEN DUM Antonio WebsterAlenapoleonand ro null, [facility] 6 12:16:17 Influenz a vaccine needed 91391545139 06 Completed 201009/30/2013 RECORDED 01/15/20 11 9:55AM BY ANTONIO SANCHEZ MD, OFFICE VISIT Antonio jj null, [facility] 6 12:16:17 Adult health examinat ion Completed 201209/30/2013 RECORDED 06/02/19 13 1:14PM BY DAVID RODRÍGUEZ MA, IAN ON/ADDEN DUM Antonio Saunders ro null, [facility] 6 12:16:17 Follow-u p encounte r Completed 201109/30/2013 RECORDED 01/19/20 12 9:17AM BY DAVID RODRÍGUEZ MA, IAN ON/ADDEN DUM Antonio WebsterAlelisette ro null, [facility] 6 12:16:17 Glucose level outside referenc e range 148744878 Completed 201109/30/2013 RECORDED 09/25/19 12 2:57PM BY ANNETTE HULL MA, MARTITAATI ON/ADDEN DUM Antonio WebsterAlelisette ro null, [facility] 6 12:16:17 Impaired fasting glycemia 791834253 Completed 201109/30/2013 RECORDED 01/19/20 12 9:17AM BY DAVID RODRÍGUEZ MA, ANNOTASHLEY ON/ADDEN DUM Antonio WebsterAlessand ro null, [facility] 6 12:16:17 Laborato ry procedur e performe d 879702976 Completed 201209/30/2013 RECORDED 06/02/19 13 1:14PM BY DAVID RODRÍGUEZ MA, MARTITAATI ON/ADDEN DUM Antonio Saunders ro null, [facility] 6 12:16:17 Administ ration of tetanus vaccine Completed 201109/30/2013 RECORDED 09/25/19 12 2:57PM BY ANNETTE HULL MA, MARTITAATI ON/ADDEN DUM Antonio Saunders ro null, [facility] 6 12:16:17 Osteoart hritis of knee 217559933 Completed 201109/30/2013 STORY: RIGHT KNEE, END STAGE, NEEDS TKR; RECORDED 01/19/20 12 9:17AM BY DAVID RODRÍGUEZ MA, ANNOTATI ON/ADDEN DUM Antonio Saunders ro null, [facility] 6 12:16:17 Pre-surg jhonatan evaluati on Completed 201109/30/2013 RECORDED 01/19/20 12 9:17AM BY DAVID RODRÍGUEZ MA, IAN ON/ADDEN DUM Antonio Saunders ro null, [facility] 6 12:16:17 Screenin g for malignan t neoplasm of colon Completed 201109/30/2013 RECORDED 09/25/19 12 2:57PM BY ANNETTE HULL MA, IAN ON/ADDEN DUM Antonio Saunders ro null, [facility] 6 12:16:18 Dermatop hytosis of the body Completed 201109/30/2013 RECORDED 09/25/19 12 2:57PM BY ANNETTE HULL MA, ANNOTATI ON/ADDEN DUM Antonio Saunders ro null, [facility] 6 12:16:17 Rapid atrial fibrilla tion 568439292 Completed 06/19/2014 Antonio jj null, [facility] 6 12:16:17 Dyspnea on exertion 83924753 Active Payal horne, [facility] 0 11:26:13 Cellulit is of toe 29543183 Completed 06/19/2014 Antonio Carolynnapoleonkeegan анна null, [facility] 6 12:16:17 Secondar y peripher al neuropat hy 460875 Active Payal horne, [facility] 0 11:26:13 Neuropat hy due to diabetes mellitus 952228389 Active Payalzoran Kuhn [facility], [facility] 0 11:26:13 Coronary atherosc lerosis 058540262 Active mild, seen on Cardiac cath Payalzoran Kuhn [facility] 0 11:26:13 Necrobio sis lipoidic a diabetic orum 43033598 Active Payalzoran horne, [facility] 0 11:26:13 Degenera tion of lumbar interver tebral disc 59659040 Active Payalzoran Kuhn [facility] 0 11:26:13 Disorder of nervous system due to diabetes mellitus 407493117 Active Payalzoran Kuhn [facility] 0 11:26:13 Ex-smoke r 7102888 [facility] 0 11:26:13 Liver enzymes outside referenc e range 460992420 [facility] 0 11:26:13 Increase d frequenc y of urinatio n 746965147 Completed 08/07/2016 Radha horne, [facility] 7 10:32:51 Obstruct susana sleep apnea syndrome 30827633 [facility] 0 11:26:13 Atherosc lerosis Active 2017 Payal horne, [facility] 0 11:26:13 On examinat ion - Amputate d right below knee Active 2016 Umameenu Lopez null, [facility] 1 09:48:08 Arthrimikhail s 0766612 Active Payal Money null, [facility] 0 11:26:13 Hyperten sive disorder 21413210 Active Payal Money null, [facility] 0 11:26:13 Smoker 32159539 Active Payal Money null, [facility] 0 11:26:13 Type 2 diabetes mellitus 13501273 Completed 10/31/2020 Removal Reason: more complica mell Hines MD [address], [place], [address] , [facility] 1 10:21:51 Hypercho lesterol emia 09759022 Completed 10/31/2020 Removal Reason: Sarah Hines MD [address], [place], [address] , [facility] 1 10:21:28 Tinea corporis 95147007 Active 2019 Ken Hines MD [address], [place], [address] , [facility] 0 11:32:34 Impingem ent syndrome of right shoulder region 70015222382 9102 Active 2019 Injected at [facility] Ken Hines MD [address], [place], [address] , [facility] 0 10:17:22 Amputate d right lower limb below knee 692933078 Completed 201605/08/2020 Uma Lopez null, [facility] 1 09:50:50 Amputate d right lower limb below knee 059808759 Active 2016 Uma horne, [facility] 1 09:50:50 Chronic pain syndrome 622897843 Active 2021 Ken Hines MD [address], [place], [address] , [facility] 2 12:42:07 Pain of knee region 9675317025 Active 2021 Left knee pain; seen at [facility] and will be schedule d for [facility] ent. Ken Hines MD [address] [facility] [address], [place], [address] , [facility] 2 17:03:59 Upper gastroin testinal bleeding 13762627 Active 2023 Admitted to [facility] for fluid resuscit ation. Secondar y to gastric ulcer after polypect ic EGD 1 week prior. Ken Hines MD [address] [facility] [address], [place], [address] , [facility] 4 11:42:51 Iron deficien cy anemia 63783803 Active 2024 Ken Hines MD [address] [facility] [address], [place], [address] , [facility] 5 12:44:07 Problem Notes None recorded. Procedures Surgical History Date Name Laterality Status Provider Name and Address Organization Details Recorded Time 01/27/20 24 Chronic Pain Assessment completed Annette de luna MA [facility] 01/27/2024 14:00:47 01/07/20 24 Perq clsr tcat l atr apndge completed Ken Hines MD [address] [facility] [address], [place], [address], [facility] 01/16/2024 15:22:05 10/28/19 24 Colonoscopy [facility] 11/03/2023 08:55:11 10/28/19 24 Egd diagnostic brush wash completed Светлана Rocha [facility] 11/03/2023 08:55:17 10/07/19 24 Chronic Pain Assessment completed Sigrid Carrillo MA [facility] 10/07/2023 13:01:53 10/08/19 23 Chronic Pain Assessment completed Jazmyne Singer MA [facility] 10/07/2022 13:32:19 06/26/19 23 Chronic Pain Assessment completed Jazmyne Singer MA [facility] 06/25/2022 09:44:18 01/29/20 22 Chronic Pain Assessment completed Jazmyne Singer MA [facility] 01/28/2022 10:30:43 08/06/19 22 Chronic Pain Assessment completed Jazmyne Singer MA [facility] 08/05/2021 10:32:21 05/07/19 22 Chronic Pain Assessment completed Jazmyne Singer MA [facility] 05/06/2021 11:32:38 02/05/20 21 Chronic Pain Assessment completed Lorie Madrid MA [facility] 02/04/2021 10:57:37 10/11/19 21 Drain thigh/knee lesion completed Uma Loepz [facility] 11/21/2020 13:50:06 08/29/19 21 Chronic Pain Assessment completed Micheline Conner MA [facility] 08/28/2020 10:33:42 05/25/19 21 Chronic Pain Assessment completed Micheline Conner MA [facility] 05/24/2020 10:10:16 02/27/19 21 Chronic Pain Assessment completed Nazia Milian MA [facility] 02/28/2020 13:47:36 12/29/19 20 shoulder injection completed Uma Lopez [facility] 01/27/2020 14:30:21 07/04/19 20 Chronic Pain Assessment completed Oral Kraft [facility] 07/04/2019 09:14:14 04/25/19 20 Colonoscopy completed Payal Kuhn [facility] 05/03/2019 09:57:42 04/25/19 20 Egd diagnostic brush wash completed Светлана Rocha [facility] 08/05/2023 13:40:45 03/31/19 20 Chronic Pain Assessment completed Oral Kraft [facility] 03/31/2019 13:56:38 09/30/19 19 Chronic Pain Assessment completed Oral Kraft [facility] 09/29/2018 10:11:22 07/02/19 19 Chronic Pain Assessment completed Oral Kraft [facility] 07/01/2018 11:00:02 04/06/19 19 Chronic Pain Assessment completed Oral Kraft [facility] 04/06/2018 10:18:58 04/06/19 19 Diabetic Foot Exam (Monofilament) completed Oral Kraft [facility] 04/06/2018 10:07:27 01/06/20 18 Chronic Pain Assessment completed Oral Kraft [facility] 01/05/2018 15:25:01 10/07/19 18 Chronic Pain Assessment completed Oral Kraft [facility] 10/06/2017 13:20:38 06/23/19 18 Chronic Pain Assessment completed Nazia Milian MA [facility] 06/22/2017 14:09:13 01/22/20 17 Other completed Destini Hernandez [facility] 02/13/2017 10:58:23 10/29/19 17 Chronic Pain Assessment completed Radha Miles MA [facility] 10/28/2016 11:02:43 08/08/19 17 Chronic Pain Assessment completed Radha Miles MA [facility] 08/07/2016 10:54:40 05/14/19 17 Chronic Pain Assessment completed Nazia Milian MA [facility] 05/13/2016 11:19:22 11/22/19 15 Other completed Radha Miles MA [facility] 11/27/2014 09:50:04 02/15/20 14 Cardioversion electric ext completed Hugo Sosa [facility] 06/19/2014 09:02:19 02/23/19 14 cholecystectomy completed Ken Hines MD [address] [facility] [address], [place], [address], [facility] 10/27/2019 11:29:13 03/07/19 12 EGD completed Uma Lopez [facility] 08/07/2015 16:21:39 02/23/18 97 excision of uvula completed Ken Hines MD [address], [place], [address], [facility] 10/27/2019 11:29:47 Imaging Results None recorded. Procedure Notes None recorded. Medical Equipment None Reported. Allergies Allergen ID Allergen Name Allergen Category Reaction Reaction Severity Criticality Documentation Date Start Date Code Code System Note Provider Name and Address Organization Details Recorded Time 3032 erythromy sameer medicatio n angioedem a Not available Not available 09/06/20132012 4053 RxNorm JILL Resendiz, [facility] 6 09:20:19 Medications Name Sig Start Date [...] 10/05 completed RECORDED 10/06/19 12 12:54PM BY JENY QUIGLEY, OFFICE VISIT; Not Available Not Available Not Available betametha sone valerate 0.1 % topical cream TWO TIMES DAILY 09/25 completed RECORDED 09/26/19 11 5:35PM BY IAN TAMEZ ON/ASHVIN HORAN; Not Available Not Available Not Available morphine [...] 04/13 completed RECORDED 04/13/19 11 1:42PM BY KEN LANDON MD, ANNOTATI ON/ASHVIN DUM; Not Available [...] completed Not Available Not Available Not Available [employer] Blood Glucose Monitorin g System 03/12 completed [...] Updated DateTime 5 193.04 cm 39.6 kg/m2 847573. 52 g 100 /min 98 % 98 % 96.4 [degF] 136 mm[Hg] 93 mm[Hg] Sigrid Carrillo MA [facility] 5 10:15:53 Social History Question Answer Notes LastModified by Organizat ion Details LastModified Time Tobacco Smoking Status Former Smoker quit around 2009 Louisa horne [facility] 09/25/2014 14:15:01 Do You Have [...] not available 01/28/2022 What Is Your Occupation? [employer] Information not available 10/05/2015 When Did You Quit Smoking? 11-15yearssin [email or web address] Information not available 09/16/2021 Live Alone [...] Health Care Provider Or Emergency Responder? No Information not available 10/27/2019 To The Best Of Your Knowledge Have You Been In Close Proximity To Any Individual Who Tested Positive For COVID-19? No Information not available 10/27/2019 Have You Recently Traveled To A COVID-19 High Risk Area Or Gathering In The Last 10 Days? No [email or web address] Information not available 05/24/2020 What Was The [...] Used Smokeless Tobacco? Never Used Smokeless Tobacco [email or web address] Information not available 11/24/2019 How Much Tobacco [...] split virus, trivalent, preservative 4 [facility] 09/16[facility]2021 15:55:52 Influenza, split virus, quadrivalent, preservative [facility] 07/04/2019 11:26:08 pneumococcal polysaccharide PPV23 6 [facility] 11:26:08 DTaP, unspecified formulation 3 completed [facility] 11/02/2019 11:26:48 Influenza, split virus, quadrivalent, preservative 6 completed [facility] 11:35:08 Influenza, split virus, quadrivalent, preservative 6 completed [facility] 11/02/2019 11:35:17 Influenza, split virus, quadrivalent, preservative 4 completed [facility] 11/02/2019 11:35:24 Influenza, split virus, quadrivalent, preservative 3 completed [facility] 11/02/2019 11:35:40 Influenza, split virus, quadrivalent, preservative 3 completed [facility] 11/02/2019 11:35:50 Influenza, split virus, quadrivalent, preservative 0 completed [facility]n [facility] 11/02/2019 11:36:04 Influenza, split virus, quadrivalent, preservative 9 completed [facility] 11/02/2019 11:36:22 pneumococcal, unspecified formulation 1 completed [facility]al Money [facility] 11/02/2019 11:39:18 zoster recombinant 0 completed Payalzoran Kuhn [facility] 11/02/2019 11:39:52 zoster recombinant 0 completed Payal Kuhn [facility] 11/02/2019 11:39:57 Influenza, split virus, quadrivalent, preservative 0 completed [facility] 02/28/2020 13:45:06 COVID-19, mRNA, LNP-S, PF, 30 mcg/0.3 mL dose 1 completed [facility] 09/16/2021 15:55:52 COVID-19, mRNA, LNP-S, PF, 30 mcg/0.3 mL dose 1 [facility] 09/16/2021 15:55:52 Influenza, split virus, quadrivalent, PF 1 completed JILL Nunes, [facility] 02/04/2021 10:49:53 COVID-19, mRNA, LNP-S, PF, 30 mcg/0.3 mL dose 1 [facility] 02/04/2021 11:14:57 Influenza, split virus, quadrivalent, PF 0 completed JILL Ellis, [facility] 09/16/2021 15:22:12 Hep B, adult 0 completed JILL Ellis, [facility] 09/16/2021 15:22:12 Influenza, split virus, quadrivalent, PF 8 completed JILL Ellis, [facility] 09/16/2021 15:22:12 Hep B, adult 0 completed JILL Ellis, [facility] 09/16/2021 15:22:12 COVID-19, mRNA, LNP-S, PF, 30 mcg/0.3 mL dose, ema-sucrose 2 completed JILL Ellis, [facility] 09/16/2021 15:22:12 Hep B, adult 1 completed JILL Ellis, [facility] 09/16/2021 15:22:12 COVID-19, mRNA, LNP-S, bivalent, PF, 30 mcg/0.3 mL dose 2 completed JILL Ortiz, [facility] 01/28/2022 10:19:47 Influenza, split virus, quadrivalent, PF 2 completed JILL Ortiz, [facility] 01/28/2022 10:19:47 Tdap 6 completed Not [facility] 03/12/2019 02:21:45 COVID-19, mRNA, LNP-S, PF, ema-sucrose, 30 mcg/0.3 mL 4 completed JILL Ellis, [facility] 01/27/2024 13:45:40 COVID-19, mRNA, LNP-S, PF, ema-sucrose, 30 mcg/0.3 mL 3 completed JILL Ellis, [facility] 01/27/2024 13:45:40 Influenza, split virus, quadrivalent, PF 7 completed Not Available [facility] 03/12/2019 02:22:11 Td (adult), 2 Lf tetanus toxoid, preservative free, adsorbed 6 completed Payal Kuhn [facility] 07/04/2019 11:26:08 Influenza, split virus, trivalent, preservative 1 completed Payal Hattie [facility] 07/04/2019 11:26:08 Influenza, split virus, quadrivalent, PF 3 completed Ken Hines MD [facility] [address], [address], [facility] 12/31/2022 12:22:40 Influenza, split virus, trivalent, PF 4 completed Ken Hines MD [facility] [address], [address], [facility] 11/12/2023 08:02:47 Past Encounters Encounter ID Performer Location Encounter Start Date Encounter Closed Date Diagnosis/Indication Diagnosis SNOMED-CT Code Diagnosis ICD10 Code Diagnosis Note [id number] Ken Hines MD Main Office [address] [phone] 04/26/2024 10:06:33 04/26/2024 10:26:01 Chronic pain syndrome 259150812 G89.4 He has joints pains in his knees and LBP. Meds help. Stable on current mgmt with no SE's. Antibiotic prophylaxis indicated 132139762 Z78.9 Hypertensive disorder 38 360585 I10 Running high. He was off the metoprolol and just restarted today. Iron defic iency anemia 66332753 D50.9 Had blood loss after an EGD with a bx causing a gastric ulcer and bleeding after a polypectom y. He has been on iron supplement s and vitamin C for 3 months. Will recheck CBC and iron studies. Hyperlipidemia 66251937 E78.5 On meds. Will recheck lipids. Health Concerns Section Related Observation LastModified by Organization Detai ls LastModified Time None Recorded Concern Status LastModified by Organization Details LastModified Time None Recorded Payers Encounter Date Sequence Insurance Name Policy Number Policy Carr Covered Member ID Carr Member ID Guarantor Name 04/26/2024 1 [facility] [employer] PROGRAM (PPO) [id number] Hugo Skyla Liban [id number] Hugo Louie Notes Date Note Type Note Provider Name and Address Organization Details Recorded Time 04/26/2024 text/html AnemiaReported bypatient.Notes:He had a GI [...] as directed; no side effects from medication Ken Hines MD [address] [address], [place], [address], [facility] 04/26/2024 12:50:41
--- OUTSIDE RECORDS SUMMARY | 2024-05-04 02:26 | XMS_ITS | Clinical Summary ---
Author Organization [facility] Address [address] [place] [address] Care Team Providers Care Allopathic Doctor Name Role Phone Unknown, Md Primary Care Provider Unavailabl e Allergies Active Allergy Reactions Criticality Noted Date Comments Erythromycin 11/27/2023 Medications Medication Sig Dispensed Refills Start Date End Date Status valsartan (DIOVAN) tablet 160 mg Take 1 tablet (160 mg total) by mouth daily. 0 Active FLUoxetine (PROzac) 20 MG capsule Take 1 capsule (20 mg total) by mouth daily. 0 Active SEMAGLUTIDE, 1 MG/DOSE, SC Inject 2 mg under the skin once a week. 0 Active oxyCODONE (ROXICODONE) 5 MG immediate release tablet Take 1 tablet (5 mg total) by mouth every 8 (eight) hours as needed for pain. 0 Active metoprolol succinate (TOPROL-XL) 24 hr tablet 100 mg Take 2 tablets (200 mg total) by mouth daily. 0 Active simvastatin (ZOCOR) tablet 40 mg Take 1 tablet (40 mg total) by mouth every night at bedtime. 1/2 tablet boss 0 Active aspirin 325 MG tablet Take 1 tablet (325 mg total) by mouth daily. 0 Active pantoprazole (PROTONIX) 40 MG tablet Take 1 tablet (40 mg total) by mouth every morning on an empty stomach. 0 Active gabapentin (NEURONTIN) 100 MG capsule Take 2 capsules (200 mg total) by mouth daily. 0 Active Social History Tobacco Use Types Packs/Day Years Used Date Smoking Tobacco: Never Assessed Sex and Gender Information Value Date Recorded Sex Assigned at Male 01/01/2024 9:35 AM EST Gender Identity Male 01/01/2024 9:35 AM EST Sexual Orientation Not on file Job Start Date Occupation Industry Not on file Not on file Not on file Plan of Treatment Health Maintenance Due Date Last Done Comments Hepatitis C Screening 1960 COVID-19 Vaccine (#1) 1961 Depression Screening 1973 Preventative Health Evaluation 1979 DTap / Tdap / Td (1 - Tdap) 01/25/1980 Colon Cancer Screening (Colonoscopy) 2006 Shingrix-Zoster Vaccine (1 of 2) 2011 Influenza Vaccine (#1) 2023 RSV Adult > 60+ Yrs or Pregn ant (1 - 1-dose 75+ series) 01/25/2036 Hepatitis B Vaccines Aged Out No long er eligible based on patient's age to complete this topic Pneumococcal Vaccine Aged Out No long er eligible based on patient's age to complete this topic RSV Ped < 20 months Aged Out No longe r eligible based on patient's age to complete this topic Care Teams Allopathic Doctor Relationship Specialty Start Date End Date Unknown, PCP - General 01/01/24
--- OUTSIDE RECORDS SUMMARY | 2024-05-04 02:26 | XMS_ITS ---
Author Name [facility] [place] [facility] [place] Address [address] [place] [address] Care Team Providers Care Wound Care Nurse Name Role Phone JUAN OBRIEN Primary Care Provider Unavaileddie [facility] Insurance Providers: All historical and [...] JESSE FAMIL Y Mar 07, 2000 105 [id number] [phone] JAY KRISHNA PATIENT ANTHEM BCBS FEDERAL PREFERRED PROVIDER ORGANIZAT ION (PPO) STAND JESSE FAMIL Y Mar 07, 2000 105 [id number] JAY KRISHNA PATIENT ANTHEM BCBS FEDERAL PREFERRED PROVIDER ORGANIZAT ION (PPO) STAND JESSE SELF Mar 07, 2000 105 [id number] JAY KRISHNA PATIENT BCBS [place] FEP PREFERRED PROVIDER ORGANIZAT ION (PPO) STAND JESSE FAMIL Y Mar 07, 2000 105 [id number] JAY KRISHNA PATIENT [place] PREFERRED PROVIDER ORGANIZAT ION (PPO) STAND JESSE FAMIL Y Mar 07, 2000 105 [id number] [phone] JAY KRISHNA PATIENT [place] DENTAL DENTAL INSURANCE STAND JESSE Mar 07, 2000 DENTAL [id number] JAY KRISHNA PATIENT [place] PREFERRED PROVIDER ORGANIZAT ION (PPO) STAND JESSE FAMIL Y Mar 07, 2000 105 [id number] [phone] JAY KRISHNA PATIENT [place] FEDERAL PREFERRED PROVIDER ORGANIZAT ION (PPO) STAND JESSE FAMIL Y Mar 07, 2000 105 [id number] JAY KRISHNA PATIENT [place] FEP BCBS PRESCRIPT ION [employer] FEPRX PLAN Mar 07, 2000 [id number] JAY KRISHNA PATIENT [place] FEPRX PLAN PRESCRIPT ION [employer] FEPRX Feb 23, 2010 [id number] JAY KRISHNA PATIENT [place] FEPRX PLAN PRESCRIPT ION [employer] FEPRX Mar 07, 2000 [id number] JAY KRISHNA PATIENT [place] BCBS PRESCRIPT ION BCBS FEP Feb 23, 2010 [id number] JAY KRISHNA PATIENT [place] BCBS PRESCRIPT ION FEP [employer] [employer] Feb 23, 2010 [id number] JAY KRISHNA PATIENT [place] EP BCBS PRESCRIPT ION BCBS FEP PLAN Feb 23, 2010 [id number] JAY KRISHNA PATIENT MEDICARE ([facility]) MEDICARE () PART A May 25, 2011 PART A [id number] [facility] [phone] JAY KRISHNA PATIENT MEDICARE ([facility]) MEDICARE () PART A May 25, 2011 PART A [id number] [id number] JAY KRISHNA PATIENT MEDICARE ([facility]) MEDICARE () PART A May 25, 2011 PART A [id number] [facility] [phone] JAY KRISHNA PATIENT MEDICARE (WNR) MEDICARE (M) PART A May 25, 2011 PART A [id number] JAY KRISNHA PATIENT MEDICARE (WNR) MEDICARE (M) PART A May 25, 2011 PART A [id number] [facility] JAY KRISHNA PATIENT MEDICARE (WNR) MEDICARE (M) PART A May 25, 2011 PART A [id number] [facility] JAY KRISHNA PATIENT MEDICARE (WNR) MEDICARE (M) PART A May 25, 2011 PART A [id number] [facility] JAY KRISHNA PATIENT MEDICARE (WNR) MEDICARE (M) PART A May 25, 2011 PART A [id number] [facility] JAY KRISHNA PATIENT Selected Encounter This section includes the information on record at [place] for the Encounter. Date/Time Encounter Type Encounter Description Reason Provider Source Sep 23, 2023 08:30 AM OFFICE O/P EST LOW 20 MIN PODIATRY ICD-10-CM S88.112S Complete traum amp at [facility] sqla FOSTER, CHARLES D [facility] Encounter Template Text not used by [place] Assessments - Encounter Diagnoses This section includes the primary and secondary diagnoses documented for the Encounter. Date/Time Primary/Secondary Diagnosis Diagnosis Name Provider Source Oct 28, 2023 12:45 PM PRIMARY Complete traum amp at [facility], DAGOBERTO Castro [facility] [place] [facility] Oct 28, 2023 12:45 PM SECONDARY Nail dystrophy SHERRYDAGOBERTO Linus [facility] [place] [facility] Oct 28, 2023 12:45 PM SECONDARY [facility]us [facility] [place] [facility] Oct 28, 2023 12:45 PM SECONDARY 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 Plan of Treatment: Future Appointments (+ 6 months) and Future Tests (+/- 45 days) The Plan of Treatment section includes future care activities for the patient from all [place] treatmentfacilities. This section includes future appointments and future orders which are active, pending or scheduled. Future Appointments This section includes appointments that were scheduled to occur 6 months from the date of the Encounter, up to a maximum of 20 appointments. The data comes from all [place] treatment facilities. Appointment Date/Time Appointment Type Appointme nt Facility Name Oct 01, 2023 11:00 AM [facility]ATORY [facility]IC[facility] [place] [facility] Dec 25, 2023 11:30 AM [facility]ULATORY [facility] MEDICINE [facility] [place] [facility] Feb 11, 2024 10:00 AM AMBULATORY - MEDICINE [facility] [place] [facility] Mar 16, 2024 10:00 AM AMBULATORY - MEDICINE [place] [facility] [place] [facility] Mar 22, 2024 08:30 AM AMBULATORY - MEDICINE [place] [facility] [place] [facility] Social History: Smoking Status (Most current) and Tobacco Use (All prior to encounter date) This section includes the most current, and the historical, smoking and tobacco- related health factors from the [place] facility where the Encounter took place. Current Smoking Status This section includes the most current smoking, or tobacco-related health factor, from the [place] facility where the Encounter took place. Date/Time Current Smoking Status Comment [facility] it July 24, 2023 10:00 AM VA-TOBACCO FORMER USER [place] [facility] [place] [facility] Tobacco Use History This section includes a history of the smoking, or tobacco-related health factors, that were collected on or before the date of the Encounter. The data comes from the [place] facility where the Encounter took place. Date/Time Smoking Status/Tobac co Use Comment Facility July 24, 2023 10:00 AM VA-TOBACCO QUIT 15 YRS OR MORE [facility] [place] [facility] July 14, 2022 03:30 PM VA-TOBACCO FORMER USER [facility] [place] [facility] July 14, 2022 03:30 PM VA-TOBACCO QUIT 15 YRS OR MORE [facility] [place] [facility] Aug 05, 2021 01:00 PM VA-TOBACCO FORMER USER [facility] [place] [facility] Aug 05, 2021 01:00 PM VA-TOBACCO QUIT 5 TO < 15 YRS [facility] [place] [facility] Sep 09, 2019 01:25 PM VA-TOBACCO FORMER USER [facility] [place] [facility] Sep 09, 2019 01:25 PM VA-TOBACCO QUIT 5 TO < 15 YRS [place] [facility] [place] [facility] Dec 04, 2017 10:18 AM VA-TOBACCO FORMER USER [place] [facility] [place] [facility] Dec 04, 2017 10:18 AM VA-TOBACCO QUIT 5 TO < 15 YRS [facility] [place] [facility] May 29, 2017 09:09 AM QUIT TOBACCO USE > 7 YEARS AGO [place] [facility] [place] [facility] Apr 23, 2015 08:21 AM QUIT TOBACCO USE > 7 YEARS AGO [place] [facility] [place] [facility] Apr 23, 2015 08:21 AM QUIT TOBACCO USE 1-7 YEARS AGO [facility] [place] [facility] Mar 06, 2011 11:06 AM QUIT TOBACCO USE 1-7 YEARS AGO [place] [facility] [place] [facility] Apr 08, 2010 10:56 AM CURRENT SMOKER cigar [facility] [place] [facility] Apr 08, 2010 10:56 AM V1-PT DECLINES [facility] [place] [facility] Apr 08, 2010 10:56 AM V1-PT DECLINES TOBACCO CESSATION MEDS [place] [facility] [place] [facility] Apr 08, 2010 10:56 AM V1-PT READY TO QUIT TOBACCO USE [place] [facility] [place] [facility] Feb 21, 2009 09:16 AM CURRENT SMOKER cigar once in a while [facility] [place] [facility] Feb 21, 2009 09:16 AM V1-PT DECLINES REF TO TOBACCO CESS PRGM [place] [facility] [place] [facility] Feb 21, 2009 09:16 AM V1-PT DECLINES TOBACCO CESSATION MEDS [place] [facility] [place] [facility] Feb 21, 2009 09:16 AM V1-PT THINKING ABOUT QUIT TOBACCO USE [place] [facility] [place] [facility] Dec 16, 2007 09:15 AM QUIT TOBACCO USE 1-7 YEARS AGO [place] [facility] [place] [facility] Apr 01, 2007 11:08 AM QUIT TOBACCO USE 1-7 YEARS AGO [place] [facility] [place] [facility] Sep 28, 2006 08:52 AM QUIT TOBACCO USE IN PAST YEAR [place] [facility] Apr 21, 2006 10:31 AM QUIT TOBACCO USE IN PAST YEAR August 2005 [facility] Dec 16, 2005 10:02 AM CURRENT SMOKER OCCASIONAL CIGAR [facility] May 19, 2001 03:50 PM CURRENT SMOKER see below [facility] Encounter Notes: All associated encounter notes This section contains the clinical notes associated to the Encounter. Date/Time Encounter Note(s) Provider Source Oct 05, 2023 03:17 PM LETTERS: LOCAL TITLE: PATIENT LETTER (B) STANDARD TITLE: LETTERS DATE OF NOTE: OCT 05, 2023@15:17 ENTRY DATE: OCT 05, 2023@15:17:28 AUTHOR: DYLAN GAUTAM EXP COSIGNER: URGENCY: STATUS: COMPLETED [facility] JAY Farrell [address] [place], [place], [address] OCT 05, 2023 Dear JAY KRISHNA, Your shoes have arrived at the [facility] located at [address] [place] [address]. Please call [phone] ext. [phone] for Dylan or ext. [phone] for Jazmyne to make a shoe fitting appointment. Clinic Hours are 8:30am-3:30pm. Walk-ins may not be accommodated. We hope to see you soon. Podiatry Staff [address] [address] DYLAN GAUTAM [facility] Sep 23, 2023 03:30 PM PODIATRY NOTE: LOCAL TITLE: PODIATRY PAVE FOOT EXAM STANDARD TITLE: PODIATRY NOTE DATE OF NOTE: SEP 23, 2023@15:30 ENTRY DATE: SEP 23, 2023@15:30:40 AUTHOR: DAGOBERTO POZO EXP FIDELIGNER: URGENCY: STATUS: COMPLETED PAVE FOOT EXAM A foot risk level was completed. The following risk level was identified for this patient: +POD RISK SCORE+ *--LEVEL 3 - (HIGH RISK)* ANY of the following: Severe obstructive peripheral arterial disease Ulceration; OR history of ulceration, osteomyelitis, or amputation Charcot joint w/foot deformity Chronic kidney disease, stage 4 or higher (Decreased sensation, foot deformity, and minor foot infection may be present or absent) LEVEL 3 FOOT EDUCATION: 1. Advised patient that extra depth footwear with soft molded inserts and braces may be required. 2. Advised patient not to walk barefoot. Instructed the patient to pay close attention to the style and fit of shoes. 3. Explained the importance of daily foot checks. Explained that loss of sensation leads to callouses. Callouses break down, which result in ulcers that may lead to gangrene and amputation. 4. Stressed the importance of daily foot hygiene. Warm (not hot) bathing of the feet, complete drying and thorough inspection for changes in the condition of the skin constitute daily foot care. Demonstrated how to do a thorough foot check. 5. Emphasized the use of clean, non-restrictive socks/stockings and well fitting shoes. 6. Stressed the importance of immediate follow-up of any foot injuries or ulcers. Explained that he/she should be non-weight bearing whenever there are lesions on the foot, to prevent cellular damage. Level of Understanding: Good Patient/Family Response to Foot Care Teaching Patient walks barefoot: Never Patient/caregiver able to clean feet at least once daily: Yes Patient/caregiver has difficulty examining feet: No /daniela/ DAGOBERTO POZO DPM PODIATRY ATTENDING Signed: 09/23/2023 15:31 DAGOBERTO POZO [place] [facility] [place] [facility] Sep 23, 2023 08:34 AM PODIATRY NOTE: LOCAL TITLE: PODIATRY NOTE STANDARD TITLE: PODIATRY NOTE DATE OF NOTE: SEP 23, 2023@08:34 ENTRY DATE: SEP 23, 2023@08:35 AUTHOR: DAGOBERTO POZO EXP COSIGNER: URGENCY: STATUS: COMPLETED Podiatry High Risk Foot Encounter [facility] provider: Dagoberto Pozo DPM Date: SEP 23, 2023 JAY KRISHNA MALE [id number] [place] [address] FROM Sep TO Aug Primary Care:JUAN OBRIEN History of chief complaint: Patient is a 63-year-old male with history of DM2 peripheral neuropathy and Charcot foot deformity on the right side 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 Patient has done well with below-knee prosthesis, and has not had any significant problems with the left foot. He has not been seen since 2021 returns today for follow- up. No significant complaints but endorses distal loss of sensation in toes of left foot and nail dystrophy. Subjective: Diabetic/ HRF/ PVD LE History: [ ] [...] Dependence * 10. Diabetes mellitus (SNOMED CT 52403819) 11. Atrial fibrillation (SNOMED CT 64744694) 12. Benign essential hypertension (SNOMED CT 1075478) 13. Family History of Ischemic Heart Disease 14. Obesity (SNOMED CT 104945286) 15. Hyperlipidemia 16. Chronic Low Back Pain [...] WEEK NEEDED 2) Non-VA SEMAGLUTIDE (OZEMPIC) PA-F STEPHAN COFFEY ACTIVE SUBCUTANEOUSLY 11 Total Medications Imaging reports: [...] 3.5 - 5.0 BMI:BMI: 41.5 PE:General: Well-appearing 63-year-old male neatly dressed pleasant cooperative awake alert oriented x3, ambulating with below-knee prosthesis on the right. Left foot with irregular irregular but biphasic audible Doppler DP and PT with warm pink skin well-hydrated. Sensation is diminished to light touch pain and temperature and patient is insensate to Currie Edward monofilament in the distal toes 1 [...] with history of Charcot deformity and right second toe amputation procedure secondary to chronic deformity and subsequent infection. He is doing quite well with below-knee prosthesis and insurance normal activities of life including riding a motorcycle Left foot is stable today could benefit from treatment for toenail fungus with clotrimazole discussed this with patient Plan: -Aseptic debridement of nails left 1 through 5 without incident using sterile instrumentation which was reprocessed according to [facility] policy for RME -Clotrimazole 1% solution 30 mL with 3 refills with following instructions: Apply one drop to each affected toenail once daily. Apply when nail is dry . Recall: 6 months Return sooner if any [...] as results of the physical exam and partner management consultant opinions and recommendations as sought. Alternatives [...] -The on this visit was given information [employer] service and encouraged to enroll if not already having done so. /daniela/ DAGOBERTO POZO DPM PODIATRY ATTENDING Signed: 09/23/2023 15:30 DAGOBERTO POZO [place] [facility]
--- OUTSIDE RECORDS SUMMARY | 2024-05-04 02:26 | XMS_ITS ---
Author Name [facility] [place] [facility] [place] Address [address] [place] [address] Care Team Providers Care Deck Specialist Name Role Phone JOHNY GOMEZ Primary Care [...] JESSE FAMIL Y Mar 07, 2000 105 [id number] [phone] JAY KRISHNA PATIENT ANTHEM BCBS FEDERAL PREFERRED PROVIDER ORGANIZAT ION (PPO) STAND JESSE FAMIL Y Mar 07, 2000 105 [id number] JAY KRISHNA PATIENT ANTHEM BCBS FEDERAL PREFERRED PROVIDER ORGANIZAT ION (PPO) STAND JESSE SELF Mar 07, 2000 105 [id number] JAY KRISHNA PATIENT BCBS [place] FEP PREFERRED PROVIDER ORGANIZAT ION (PPO) STAND JESSE FAMIL Y Mar 07, 2000 105 [id number] JAY KRISHNA PATIENT [place] PREFERRED PROVIDER ORGANIZAT ION (PPO) STAND JESSE FAMIL Y Mar 07, 2000 105 [id number] [phone] JAY KRISHNA PATIENT [place] DENTAL DENTAL INSURANCE STAND JESSE Mar 07, 2000 DENTAL [id number] [phone] JAY KRISHNA PATIENT [place] F[place] PREFERRED PROVIDER ORGANIZAT ION (PPO) STAND JESSE FAMIL Y Mar 07, 2000 105 [id number] JAY KRISHNA PATIENT [place] FEDERAL PREFERRED PROVIDER ORGANIZAT ION (PPO) STAND JESSE FAMIL Y Mar 07, 2000 105 [id number] JAY KRISHNA PATIENT [place] FEP BCBS PRESCRIPT ION CAREM ARK FEPRX PLAN Mar 07, 2000 [id number] JAY KRISHNA PATIENT [place] FEPRX PLAN PRESCRIPT ION CAR[place] FEPRX Feb 23, 2010 [id number] JAY KRISHNA PATIENT [place] FEPRX PLAN PRESCRIPT ION CAREM ARK FEPRX Mar 07, 2000 [id number] JAY KRISHNA PATIENT [place]-F EP BCBS PRESCRIPT ION BCBS FEP PLAN Feb 23, 2010 [id number] JAY KRISHNA PATIENT [place]-F EP BCBS PRESCRIPT ION FEP CAREM ARK Feb 23, 2010 [id number] JAY KRISHNA PATIENT [place]-F EP BCBS PRESCRIPT ION BCBS FEP Feb 23, 2010 [id number] JAY KRISHNA PATIENT MEDICARE ([facility]) MEDICARE () PART A May 25, 2011 PART A [id number] [facility] [phone] JAY KRISHNA PATIENT MEDICARE ([facility]) MEDICARE () PART A May 25, 2011 PART A [id number] [facility] [phone] JAY KRISHNA PATIENT MEDICARE ([facility]) MEDICARE () PART A May 25, 2011 PART A [id number] [facility] JAY KRISHNA PATIENT MEDICARE (WNR) MEDICARE (M) PART A May 25, 2011 PART A [id number] [phone] JAY KRISHNA PATIENT MEDICARE (WNR) MEDICARE (M) PART A May 25, 2011 PART A [id number] JAY KRISHNA PATIENT MEDICARE (WNR) MEDICARE (M) PART A May 25, 2011 PART A [id number] [facility] JAY KRISHNA PATIENT MEDICARE (WNR) MEDICARE (M) PART A May 25, 2011 PART A [id number] JAY KRISHNA PATIENT MEDICARE (WNR) MEDICARE (M) PART A May 25, 2011 PART A [id number] [phone] [id number] JAY KRISHNA PATIENT Selected Encounter This section includes the information on record at [place] for the Encounter. Date/Time Encounter Type Encounter Description Reason Pro vider Source Nov 05, 2023 07:21 AM Outpatient Encounter COMMUNITY CARE CONSULT IHE Encounter Template Text not used by [place] Plan of Treatment: Future Appointments (+ 6 months) and Future Tests (+/- 45 days) The Plan of Treatment section includes future care activities for the patient from all [place] treatmentfacilities. This section includes future appointments and future orders which are active, pending or scheduled. Future Appointments This section includes appointments that were scheduled to occur 6 months from the date of the Encounter, up to a maximum of 20 appointments. The data comes from all [place] treatment facilities. Appointment Date/Time Appointment Type Appointme nt Facility Name Dec 25, 2023 11:30 AM [place] [facility] [place] [facility] Feb 11, 2024 10:00 AM [place] [facility] [place] [facility] Mar 16, 2024 10:00 AM [place] [facility] [place] [facility] Mar 22, 2024 08:30 AM [place] [facility] [place] [facility] Apr 27, 2024 09:30 AM [place] [facility] [place] [facility] Apr 27, 2024 10:00 AM [place] [facility] [place] [facility] Apr 28, 2024 09:30 AM [place] [facility] [place] [facility] May 03, 2024 08:00 AM AMBULATORY - MEDICINE [facility] [place] [facility] Social History: Smoking Status (Most current) and Tobacco Use (All prior to encounter date) This section includes the most current, and the historical, smoking and tobacco- related health factors from the [place] facility where the Encounter took place. Current Smoking Status This section includes the most current smoking, or tobacco-related health factor, from the [place] facility where the Encounter took place. Date/Time Current Smoking Status Comment Facil ity July 24, 2023 10:00 AM VA-TOBACCO QUIT 15 YRS OR MORE [place] [facility] [place] [facility] Tobacco Use History This section includes a history of the smoking, or tobacco-related health factors, that were collected on or before the date of the Encounter. The data comes from the [place] facility where the Encounter took place. Date/Time Smoking Status/Tobac co Use Comment Facility July 24, 2023 10:00 AM VA-TOBACCO QUIT 15 YRS OR MORE [facility] [place] [facility] July 14, 2022 03:30 PM VA-TOBACCO FORMER USER [facility] [place] [facility] July 14, 2022 03:30 PM VA-TOBACCO QUIT 15 YRS OR MORE [facility] [place] [facility] Aug 05, 2021 01:00 PM VA-TOBACCO FORMER USER [facility] [place] [facility] Aug 05, 2021 01:00 PM VA-TOBACCO QUIT 5 TO < 15 YRS [facility] [place] [facility] Sep 09, 2019 01:25 PM VA-TOBACCO FORMER USER [facility] [place] [facility] Sep 09, 2019 01:25 PM VA-TOBACCO QUIT 5 TO < 15 YRS [facility] [place] [facility] Dec 04, 2017 10:18 AM VA-TOBACCO FORMER USER [facility] [place] [facility] Dec 04, 2017 10:18 AM VA-TOBACCO QUIT 5 TO < 15 YRS [facility] [place] [facility] May 29, 2017 09:09 AM QUIT TOBACCO USE > 7 YEARS AGO [facility] [place] [facility] Apr 23, 2015 08:21 AM QUIT TOBACCO USE > 7 YEARS AGO [facility] [place] [facility] Apr 23, 2015 08:21 AM QUIT TOBACCO USE 1-7 YEARS AGO [place] [facility] [place] [facility] Mar 06, 2011 11:06 AM QUIT TOBACCO USE 1-7 YEARS AGO [place] [facility] [place] [facility] Apr 08, 2010 10:56 AM CURRENT SMOKER cigar once in a while [place] [facility] [place] [facility] Apr 08, 2010 10:56 AM V1-PT DECLINES REF TO TOBACCO CESS PRGM [place] [facility] [place] [facility] Apr 08, 2010 10:56 AM V1-PT DECLINES TOBACCO [facility] [place] [facility] Apr 08, 2010 10:56 AM V1-PT READY TO QUIT [facility]ACCO [facility] [place] [facility] Feb 21, 2009 09:16 AM CURRENT SMOKER cigar once in a while [facility] [place] [facility] Feb 21, 2009 09:16 AM V1-PT DECLINES REF TO TOBACCO CESS [facility] [place] [facility] Feb 21, 2009 09:16 AM V1-PT DECLINES TOBACCO CESSATION [facility] [place] [facility] Feb 21, 2009 09:16 AM V1-PT THINKING ABOUT QUIT TOBACCO USE [facility] [place] [facility] Dec 16, 2007 09:15 AM QUIT TOBACCO USE 1-7 YEARS AGO [place] [facility] [place] [facility] Apr 01, 2007 11:08 AM QUIT TOBACCO USE 1-7 YEARS AGO [facility] [place] [facility] Sep 28, 2006 08:52 AM QUIT TOBACCO USE IN PAST YEAR [facility] [place] [facility] Apr 21, 2006 10:31 AM QUIT TOBACCO USE IN PAST YEAR August 2005 [place] [facility] [place] [facility] Dec 16, 2005 10:02 AM CURRENT SMOKER OCCASIONAL CIGAR [facility] [place] [facility] May 19, 2001 03:50 PM CURRENT SMOKER see below [facility] [place] [facility] Encounter Notes: All associated encounter notes This section contains the clinical notes associated to the Encounter. Date/Time Encounter Note(s) Provider Source Nov 05, 2023 07:21 AM NONVA NOTE: LOCAL TITLE: COMMUNITY CARE-CONSTANTIN SELF PRESENTING CARE COORD PLAN STANDARD TITLE: NONVA NOTE DATE OF NOTE: NOV 05, 2023@07:21 ENTRY DATE: NOV 05, 2023@07:21:25 AUTHOR: LUIZA WOO COSIGNER: URGENCY: STATUS: COMPLETED [facility] CARE-CONSTANTIN SELF PRESENTING CARE COORD PLAN NOTE Has ADDENDA Emergency Notification Intake Date Presenting to the Facility: Oct Method of Contact: Notified from ECR worklist Notification ID: [id number] [facility] Referral #: [facility] Name: Hospital: [facility] Address: City: [place] State: [place] Zip Code: Phone : [facility] Point of Contact: Name: Phone: Chief complaint: K92.2 Primary Diagnosis: Disposition Admitted Route of Admission: [facility] Date of Admission: Oct Admitting Diagnosis: K92.2 [facility] Provider: Isidro Level of Care: /daniela/ LUIZA WOO CARE IN THE COMMUNITY RELATIONS Signed: 11/05/2023 07:23 Receipt Acknowledged By: 11/11/2023 10:33 /es/ Amaar ANDERSON,RN,[facility] TRANSFER/TRAVELING COORDINATOR 11/05/2023 07:58 /es/ Johny Gomez DNP, PRODUCTION SAMPLER-BC, CNL Primary Care Nurse Practitioner 11/05/2023 07:28 /es/ Ary ANDERSON RN CNL Primary Care RN 11/11/2023 ADDENDUM STATUS: COMPLETED Discharge Disposition Date of discharge: Oct Disposition Discharge to home /daniela/ Amara ANDERSON,RN,[facility] TRANSFER/TRAVELING COORDINATOR Signed: 11/11/2023 10:35 01/29/2024 ADDENDUM STATUS: COMPLETED Taken from [facility] portal: Admit: 11/03/23 D/C: 11/05/23 Hospital Course: 63 YOM with pertinent PMH of fatty liver disease, A-fib s/p multiple failed cardioversions on Xarelto, multiple RLE surgeries for foot fracture with 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 He had this done 7 days ago at [facility] which showed 2 small polyps which were clipped, gastritis with hemorrhage, and normal duodenum. He was restarted on his Xarelto which is followed by weakness/fatigue all week and at least 3 episodes of melena with difficulty tolerating oral diet. He was brought to the emergency department and found to be in A-fib with RVR, mixed hypovolemic and hemorrhagic shock in setting of poor p.o. intake and GI bleed respectively with SBP as low as 73/55. While in the ED, patient was resuscitated with aggressive fluid resuscitation as well as 1 unit PRBC plus reversal of Xarelto with Kcentra. Initially started on ceftriaxone noted however discontinued given no history of cirrhosis. Patient kept n.p.o. and vitals were closely monitored. He underwent EGD on 11/03 and found to have an ulcer with visible blood vessels at the site of recent polypectomy which was clipped. GI also found multiple polyps in the stomach as well as the dural area for which biopsies were taken?results are pending and need to be followed up as an outpatient. His H&H was closely monitored, Xarelto was held, Protonix continued. Liquid diet was introduced which patient tolerated well. He remained normotensive patient H&H remained stable. Discussed with GI on 11/04 and cleared to resume Xeralto. Lastly, permission noted to be in A-fib with RVR which could be in setting of low blood pressure, shock and HR improved to 90s. Metoprolol dose was increased to 200mg for better rate control. Given he was close to baseline, decision made to discharge him. Patient expressed understanding and agrees with the plan. I also reached out to patient's as per the request and went over medical plan and need for follow-up with GI and PCP as an outpatient. Also went over risk versus benefit of anticoagulation and recommended possibly considering Watchman device. Multiple antihypertensive medications were held during hospital stay including hydrochlorothiazide and valsartan?would consider reaching out to PCP before resuming these medications. Discharge Medications: Acetaminophen 325mg Every 6 hours Docusate 100mg 2 times a day Fluoxetine 20mg Daily Gabapentin 300mg Daily at bedtime Metoprolol 100mg Daily Oxycodone 5mg 3 times a day Pantoprazole 40mg 2 times a day Polyethylene Glycol 3350 17 gram Daily as needed rivaroxaban 20mg Daily at supper semaglutide 8mg/3mL (2mg dose) Every Thursday Senna 8.6mg Daily at bedtime as needed Simvastatin 40mg Daily PCP Follow-Up/Heads-Up - Repeat blood work - Follow-up on discharge. - Please review list of medications. -Follow-up on hospitalization course /es/ Ary ANDERSON RN CNL Primary Care RN Signed: 01/29/2024 14:24 LUIZA WOO FORK
--- OUTSIDE RECORDS SUMMARY | 2024-05-04 02:26 | XMS_ITS | Encounter Summary ---
Author Organization [facility] Address [address] [place] [address] Care Team Providers Care Site Monitor Name Role Phone Unknown, Primary Care Provider Unavailabl e Reason for Visit * Auth/Cert Inpatient Observation or Outpatient Surgery Specialty Diagnoses / Procedures Referred By Contac t Referred To Contact Procedures MI PERQ CLSR TCAT L ATR APNDGE W/ENDOCARDIAL IMPLNT Percutaneous Transcatheter Closure of the Left Atrial Appendage with Endocardial Implant [facility] Electrophysiology [address] [place] [address] Referral ID Status Reason Start Date Expiration Date Visits Re quested Visits Authorized [id number] 1 1 Encounter Details Date Type Department Care Team Description 01/07/2024 2:45 PM EST Hospital Encounter Cardiology Services [address] [place] [address] Dannie Pan MD [address] [facility] [address],[phone] [place] [address] Social History Tobacco Use Types Packs/Day Years Used Date Smoking Tobacco: Never Assessed Sex and Gender Information Value Date Recorded Sex Assigned at Male 01/01/2024 9:35 AM EST Gender Identity Male 01/01/2024 9:35 AM EST Sexual Orientation Not on file Job Start Date Occupation Industry Not on file Not on file Not on file documented as of this encounter Plan of Treatment Scheduled Orders Name Type Priority Associated Diagnoses Order Schedule Electrophysiology Procedure Electrophysiology Routine Once for 1 Occurrences starting 12/07/2023 until 12/07/2023 documented as of this encounter Visit Diagnoses Not on filedocumented in this encounter Care Teams Site Monitor Relationship Specialty Start Date End Date Unknown, PCP - General 01/01/24 documented as of this encounter
[2024-05-04 02:36] LABS: Troponin-I High Sensitivity < 2.7 ng/L (<3.5-35.0)
[2024-05-04 02:40] LABS: Alanine Aminotransferase 20 U/L (0-40); Anion Gap 15 (12-20); Aspartate Amino Transferase 33 U/L (5-37); Bilirubin Total 1.3 mg/dL (0.0-1.0); Blood Urea Nitrogen 16 mg/dL (9-16); Calcium 9.4 mg/dL (8.4-10.2); Carbon Dioxide 22 mmol/L (22-29); Chloride 103 mmol/L (96-108); Estimated Glomerular Filt Rate > 60; Ethanol < 10 mg/dL; Glucose Random 152 mg/dL (60-115); Potassium 3.5 mmol/L (3.3-5.1); Sodium 136 mmol/L (135-145); Total Protein 7.5 g/dL (6.5-8.0)
[2024-05-04 03:33] LABS: Alkaline Phosphatase 66 U/L (39-117)
[2024-05-04] MEDS: LORazepam 2 MG/ML VIAL IVPUSH ×2 (05:01→05:30)
--- NOTE | 2024-05-04 05:01 | PC.NURSE ---
staff heard a grunting noise from room. noted patient to be seizing. Dr izquierdo alerted and at bedside. 2mg ativan pulled for patient and administered IV. patient seizing stopped. bit tongue and was incontinent or urine. patient sleeping at this time. at bedside.
[2024-05-04] MEDS: levETIRAcetam in NaCl (iso-os) 1,500 MG/100 ML PIGGYBACK 400 MG IV (05:16)
--- NOTE | 2024-05-04 05:30 | ED_ITS ---
HPI - Altered Mental Status General Chief Complaint: Altered Mental Status Stated Complaint: AMS- cpap woke up A&O zero and diaphoretic Time Seen by Provider: 05/04/24 05:04 Source: family and EMS Mode of arrival: EMS Limitations: altered mental status History of Present Illness ED Provider: Dr. Estephania Salazar HPI narrative: patient comes to the emergency room via ambulance. According to the patient's . They were sleeping at night and the noted the patient was having tonic-clonic seizures and making gurgling noises. Patient was having a seizure. Patient was incontinent of urine, bit his tongue. According to the patient's , the patient has never had any seizures in the past. When EMS arrived, patient was stable but very confused/postictal. The denies any recent injuries. Patient known to drink 2 beers of alcohol every day, last drink of alcohol was a few hours before going to bedtime. patient is postictal and is unable to give any significant history. Related Data Previous Rx's ?Medication ?Instructions ?Recorded amoxicillin 875 mg-potassium 1 tab PO Q12H 5 days #10 tabs 09/06/20 clavulanate 125 mg tablet (Augmentin) Allergies Allergy/AdvReac Type Severity Reaction Status Date / Time azithromycin Allergy Unknown Verified 05/04/24 02:03 Review of Systems 2 Review of Systems: Yes Unobtainable due to mental status PMFSH Past Medical History Medical History (Updated 05/04/24 @ 07:17 by Estephania Salazar MD) Presence of Watchman left atrial appendage closure device Amputated right leg Afib Surgical History History of cholecystectomy Social History Social History Alcohol intake: current Smoked in Last 30 Days: No Use of substances other than those prescribed or required for medical reasons: Yes Substance Use Type: Marijuana Advance Directives: No Physical Exam ED Vital Signs: Vital Signs - 24 hr 05/04/24 01:59 05/04/24 05:03 Temperature 97.6 F Pulse Rate 117 H 104 H Respiratory Rate 20 20 Blood Pressure 127/76 150/85 H Pulse Oximetry 95 97 Oxygen Delivery Method Room Air Room Air BMI result Body Mass Index 34.9 Const Other: Appearance: Alert. postictal, confused Eyes: Pupils equal, round and reactive to light. ENT: Pharynx normal. small bite rust to the right side of the tongue, no lacerations Neck: Normal inspection. Neck supple. No lymph nodes noted. No crepitus CVS: Normal heart rate and rhythm. Pulses normal. Normal S1 and S2 Respiratory: No respiratory distress. Breath sounds normal. No Wheezing. No rales Abdomen: Soft and nontender. No rigidity. No distention. Skin: Skin warm and diaphoretic Normal skin color. Normal skin turgor. Extremities: No lower extremity edema. No Lacerations. No Rash Neuro: moving all extremities, cranial nerves 2-12 grossly intact, unable to follow commands, confused /postictal Psych: a bit agitated, postictal Course Course Course Narrative: all of patient's labs and imaging pending. Medications Administered Generic Name Dose Route Start Last Admin Trade Name Freq PRN Reason Stop Dose Admin Enoxaparin Sodium 40 mg 05/04/24 06:00 05/04/24 06:29 Enoxaparin Sodium 40 Mg/0.4 Ml Syringe SUBCUT 40 mg Q24H MELISSA Administration Discontinued Medications Generic Name Dose Route Start Last Admin Trade Name Freq PRN Reason Stop Dose Admin Diphenhydramine HCl 50 mg 05/04/24 05:39 05/04/24 05:43 Diphenhydramine Hcl 50 Mg/Ml Vial IVPUSH 05/04/24 05:40 50 mg ONCE ONE Administration Levetiracetam 1,500 mg in 100 mls @ 400 mls/hr 05/04/24 05:05 05/04/24 05:32 Keppra IV 05/04/24 05:19 Infused ONCE ONE Infusion Thiamine HCl 500 mg/ Sodium 105 mls @ 210 mls/hr 05/04/24 06:19 05/04/24 06:29 Chloride IV 05/04/24 06:48 210 mls/hr ONCE ONE Administration Lorazepam 2 mg 05/04/24 05:00 05/04/24 05:01 Lorazepam 2 Mg/Ml Vial IVPUSH 05/04/24 05:01 2 mg ONCE ONE Administration Lorazepam 2 mg 05/04/24 05:27 05/04/24 05:30 Lorazepam 2 Mg/Ml Vial IVPUSH 05/04/24 05:28 2 mg ONCE ONE Administration Phenobarbital Sodium 416 mg 05/04/24 06:30 05/04/24 06:38 Phenobarbital Sodium 130 Mg/Ml Im Once IM 05/04/24 06:31 416 mg ONCE ONE Administration Ziprasidone 20 mg 05/04/24 05:39 05/04/24 05:48 Ziprasidone Mesylate 20 Mg Vial IM 05/04/24 05:40 Not Given ONCE ONE Medical Decision Making Medical Decision Making [facility] Narrative: in the emergency room. Patient has a noted tonic-clonic seizure. Patient was given 2 mg of IM Ativan. Also patient was started 50 mg of IV Keppra patient kept being very agitated, eventually patient needed to doses of 2 mg IV push lorazepam and diphenhydramine. Patient was started on a phenobarb protocol. Head CT does not show any significant or new abnormalities I discussed the patient with Dr. Anderson, patient being admitted. Possible new onset seizures versus alcohol withdrawal seizures? Differential Diagnosis Differential Diagnoses: The differential diagnosis associated with the presentation includes ( Alcohol withdrawal seizure, new onset seizure, epilepsy) Admission/Observation Consideration of admission/observation: Escalation of care including admission/observation considered Consult Healthcare Provider Management of the patient was discussed with: Hospitalist Lab Data [facility] Lab Attestation statement: I reviewed the patient's lab results. 05/04/24 02:10 05/04/24 02:10 Labs: Lab Results 05/04/24 05/04/24 Range/Units 02:10 02:20 WBC 9.5 (4.8-10.8) X10*3/uL RBC 5.17 (4.60-5.80) X10*6/uL Hgb 15.3 (14.0-18.0) g/dl Hct 44.2 (42.0-52.0) % MCV 85.5 (80.0-98.0) fL MCH 29.6 (27.0-33.0) pg MCHC 34.6 (31.0-36.0) g/dl RDW 18.6 H (11.0-16.0) % Plt Count 274 (160-400) X10*3/uL MPV 9.5 (9.4-12.4) fL Immature Gran % (Auto) 0.4 (0.0-0.4) % Neut % (Auto) 86.7 H (45-73) % Lymph % (Auto) 7.7 L (20-40) % [place] % (Auto) 4.4 (2-11) % Eos % (Auto) 0.3 (0-4) % Baso % (Auto) 0.5 (0-2) % Lymph # (Auto) 0.7 L (1.2-4.9) X10*3/uL [place] # (Auto) 0.4 (0.1-1.2) X10*3/uL Eos # (Auto) 0.0 (0.0-0.4) X10*3/uL Baso # (Auto) 0.1 (0.0-0.2) X10*3/uL Abs Immat Gran (auto) 0.04 H (0.00-0.03) X10*3/uL Absolute Neuts (auto) 8.2 (2.0-8.3) x10*3/uL Absolute Nucleated RBC 0.000 (0.0-0.012) X10*3/uL Nucleated RBC % (auto) 0.0 (0.0-0.2) /100WBC Sodium 136 (135-145) mmol/L Potassium 3.5 (3.3-5.1) mmol/L Chloride 103 (96-108) mmol/L Carbon Dioxide 22 (22-29) mmol/L Anion Gap 15 (12-20) BUN 16 (9-16) mg/dL Creatinine 0.79 (0.5-1.4) mg/dL Estim Creat Clear Calc 149.0 Estimated GFR > 60 Random Glucose 152 H (60-115) mg/dL Estimat Average Glucose 108 mg/dL Hemoglobin A1c % 5.4 (<6.0) % Lactic Acid 2.0 (0.5-2.0) mmol/L Calcium 9.4 (8.4-10.2) mg/dL Magnesium 2.0 (1.6-2.6) mg/dL Total Bilirubin 1.3 H (0.0-1.0) mg/dL AST 33 (5-37) U/L ALT 20 (0-40) U/L Alkaline Phosphatase 66 (39-117) U/L Total Creatine Kinase 140 (38-174) U/L Troponin I High Sens < 2.7 (<3.5-35.0) ng/L Total Protein 7.5 (6.5-8.0) g/dL Albumin 4.0 (3.5-5.0) g/dL Ethyl Alcohol < 10 mg/dL Independent Interpretation I performed an independent interpretation of an: CT Scan Radiology Impression Discussion of test interpretation with radiology: I have reviewed the radiologist's reading. Radiologist Impression: Comparison: None Findings: No intra-axial mass, midline shift, hydrocephalus, or acute hemorrhage. Mild atrophy like change. There is no sinus or mastoid fluid. The orbits are unremarkable. There is no acute fracture. IMPRESSION: 1. No acute intracranial findings. Independent Historian Clinical information obtained from an independent historian. History obtained from or confirmed by: Spouse Critical Care Time Critical Care Time Critical Care Time: Yes Total Critical Care Time: 60 Attestation: I have personally provided critical care time. Time includes review of lab data, radiology results, discussion with consultants, and monitoring for potential decompensation. Intervention performed as documented. Discharge Plan Discharge Clinical Impression: Seizure Patient Disposition: Admitted As Inpatient Instructions: Recurrent Seizures in Adults (ED) Prescriptions: No Action amoxicillin-pot clavulanate [Augmentin] 875-125 mg tablet 1 tab PO Q12H 5 Days Qty: 10 0RF Print Language: Hebrew
[2024-05-04] MEDS: diphenhydrAMINE HCL 50 MG/ML VIAL IVPUSH (05:43)
--- NOTE | 2024-05-04 05:59 | P.HPHOSP_ITS ---
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 The patient has no history of seizure disorder. He was found gurgling in his sleep his who removed his CPAP knee ruled out of bed. He was confused and diaphoretic, still confused when EMS arrived then suddenly came back to baseline. He was alert and oriented when he arrived to the ED with blood in his mouth from biting his tongue. He experienced another seizure while in the ED and was started on Keppra and given 4mg total Ativan. He does drink alcohol daily and reports a few beers a day or vodka, last drink was last night. His does not know any decreased alcohol use. He has never had a history of alcohol withdrawal or seizures. They deny any drug use. No new medications. He does take gabapentin 100 mg 1 time daily and has taken this for years, has not missed any recent doses to her knowledge. The patient's gives a history as the patient is postictal and unable to follow conversation. She reports that he has not had any recent illness including nausea, vomiting, fever, chills, abdominal pain, urinary symptoms cough. She reports that he does not complain often therefore there may have been something going on that she is not aware of. He has been seeing a dentist and is on amoxicillin for an upcoming procedure. Review of Systems 2 Review of Systems: Yes Unobtainable due to mental condition [facility] Medical History Afib Amputated right leg Functional capacity: independent ambulation Surgical History History of cholecystectomy Social History Alcohol intake: current Smoked in Last 30 Days: No Use of substances other than those prescribed or required for medical reasons: Yes Substance Use Type: Marijuana Advance Directives: No Narrative: n omsoking, occasional marijuana, few beers or vodka daily. Meds Allergies Allergy/AdvReac Type Severity Reaction Status Date / Time azithromycin Allergy Unknown Verified 05/04/24 02:03 Active Medications: Current Medications Pharmacy Consult (Consult Rx Etoh Phenob Im/Po) 1 each MISCELLANE ONCE PRN; Protocol PRN Reason: Consult order Phenobarbital Sodium (Phenobarbital Sodium 130 Mg/Ml Im Once) 348 mg IM ONCE ONE Stop: 05/04/24 06:01 Phenobarbital Sodium (Phenobarbital Sodium 130 Mg/Ml Vial Im Q3hx2) 261 mg IM Q3H MELISSA Stop: 05/04/24 12:01 Physical Exam 2 Vital Signs and Narrative: Vital Signs: Last Vital Signs Temp 97.6 F 05/04/24 01:59 Pulse 104 H 05/04/24 05:03 Resp 20 05/04/24 05:03 BP 150/85 H 05/04/24 05:03 Pulse Ox 97 05/04/24 05:03 O2 Del Method Room Air 05/04/24 05:03 BMI result Body Mass Index 34.9 General: postictal, resposive to questions, some responses unclear. not orietend to place or time, no acute distress Resp: CTA bilaterally CVS: S1, S2, tachy GI: +BS, NT, no distention Skin: Warm, dry Neuro: unable to perform full neuro exam as pt is post ictal and not able to participate. pupils are equal and round. Extremities: No LE edema, s/p R BKA Psych: Appropriate affect Results Labs 05/04/24 02:10 05/04/24 02:10 Labs: Laboratory Results - last 24 hr 05/04/24 05/04/24 02:10 02:20 MCV 85.5 MCH 29.6 MCHC 34.6 RDW 18.6 H Plt Count 274 MPV 9.5 Immature Gran % (Auto) 0.4 Neut % (Auto) 86.7 H Lymph % (Auto) 7.7 L [place] % (Auto) 4.4 Eos % (Auto) 0.3 Baso % (Auto) 0.5 Lymph # (Auto) 0.7 L [place] # (Auto) 0.4 Eos # (Auto) 0.0 Baso # (Auto) 0.1 Abs Immat Gran (auto) 0.04 H Absolute Neuts (auto) 8.2 Absolute Nucleated RBC 0.000 Nucleated RBC % (auto) 0.0 Anion Gap 15 Estim Creat Clear Calc 149.0 Estimated GFR > 60 Random Glucose 152 H Lactic Acid 2.0 Calcium 9.4 Total Bilirubin 1.3 H AST 33 ALT 20 Alkaline Phosphatase 66 Total Creatine Kinase 140 Total Protein 7.5 Albumin 4.0 Ethyl Alcohol < 10 Assessment and Plan (1) Seizure: Status: Acute Plan Patient is a 64-year-old male with a past medical history significant for AFib s/p Watchman device on aspirin, 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 new onset seizures - no infectious source identified thus far. WBC normal, tachy in a fib, no infectious sx per pt - no recent injury or head trauma - no change in medications or missed medications - does drink etoh regularly, no decreased use, no hx of etoh withdrawal - head CT negative - lactic acid normal, 2.0 - EKG with a fib with RVR, has watchman device - started on phenobarb for possible etoh withdrawal - UA/Utox not yet done - given 3mg total ativan in ED and given keppra 1500mg - start thiamien 500mg IV followed by 100mg PO tomorrow with folic acid and multivitamin - neuro consult - MRI with and without IV contrast - follow CBC and BMP a fib s/p watchman - EKG with a fib with RVR - continue metoprolol s/p R BKA - continue gabapentin for neuropathic pain HTN - continue metoprolol, valsartan HLD - continue statin CARMEN - CPAP at bedtime prediabetes - check A1C - not on home meds - random glucose 152 full code VTE prophy: lovenox pt with new onset seizures with unknown cause, requiring admission for IV antiseizure medications, further w/u and neurology consultation for at least 2 midnights stay. Quality Stroke Does the patient have a stroke diagnosis?: No VTE Prior VTE?: No VTE Risk Level:: Medical - moderate - high VTE Device Contraindication: Treatment Not Indicated VTE Drug Contraindication: N/A - Med Ordered
[2024-05-04] MEDS: Thiamine HCL 500 MG in 0.9 % Sodium Chloride 100 ML 210 MG IV (06:29)
[2024-05-04] MEDS: Enoxaparin Sodium 40 MG/0.4 ML SYRINGE SUBCUT (06:29)
[2024-05-04 06:33] LABS: Estimated Average Glucose 108 mg/dL; Hemoglobin A1C 129.9745 umol/L; Hemoglobin A1c % 5.4 % (<6.0); Total Hemoglobin (HGBA1C) 3648.9773 umol/L
[2024-05-04] MEDS: PHENobarbitaL sodium 130 MG/ML IM ONCE 416 MG IM (06:38)
--- NOTE | 2024-05-04 07:47 | PC.NURSE ---
Assumed care of pt at 0700. Pt resting on hospital stretcher, responds to verbal stimuli, not able to follow commands/answer questions effectively. Pt moved into hospital bed, seizure precautions in place. Respirations even and unlabored, no increased wob/sob noted, maintaining O2 sat mid 90s on room air. Pt continuously pulling tele stickers/medical equipement off/rolling over onto stomach in bed, unable to be redirected. Camera in place for pt safety, tele stickers/O2 monitor placed back on patient. 20g IV placed R wrist, vitals taken and updated, call beckman within reach, all needs met at this time.
[2024-05-04 08:44] LABS: MANUAL DIFF FLAG NO
[2024-05-04 08:56] LABS: Basophils Percent Auto 0.3 % (0-2); Hematocrit 42.5 % (42.0-52.0); Hemoglobin 14.8 g/dl (14.0-18.0); Imm Gran Pct Auto 0.7 % (0.0-0.4); Lymphocytes Absolute Auto 0.9 X10*3/uL (1.2-4.9); Lymphocytes Percent Auto 5.7 % (20-40); Mean Corpuscular HGB Conc 34.8 g/dl (31.0-36.0); Mean Platelet Volume 10.1 fL (9.4-12.4); Monocytes Absolute Auto 1.2 X10*3/uL (0.1-1.2); Monocytes Percent Auto 7.9 % (2-11); Neutrophils Absolute Auto 12.9 x10*3/uL (2.0-8.3); Neutrophils Percent Auto 85.4 % (45-73); Platelet Count 227 X10*3/uL (160-400); Red Blood Count 4.94 X10*6/uL (4.60-5.80); Red Cell Distribution Width 18.6 % (11.0-16.0); White Blood Count 15.1 X10*3/uL (4.8-10.8)
[2024-05-04 09:06] LABS: Anion Gap 12 (12-20); Blood Urea Nitrogen 15 mg/dL (9-16); Calcium 9.1 mg/dL (8.4-10.2); Carbon Dioxide 26 mmol/L (22-29); Chloride 103 mmol/L (96-108); Creatinine Clr Calc Pharmacy 154.5; Estimated Glomerular Filt Rate > 60; Glucose Random 115 mg/dL (60-115); Potassium 3.1 mmol/L (3.3-5.1); Sodium 138 mmol/L (135-145)
[2024-05-04 09:20] LABS: TSH reflex Free T4 0.92 uIU/mL (0.32-4.0)
--- NOTE | 2024-05-04 09:31 | PHA.MEDREC ---
Addendum entered by Russ Black 05/04/24 10:04: reviewed Original Note: Pharmacy Consult ? Medication Reconciliation Pharmacy has completed the medication reconciliation. Spoke to patients over the phone to confirm med list, however she didn't know everything patient takes. was able to confirm Ozempic 2 mg is every Thursday, last dose 05/02/24. instructed me to call patient PCP at [facility] group to get updated medication list. Utilized List from [facility] to confirm med list.
[2024-05-04] MEDS: PHENobarbitaL sodium 130 MG/ML VIAL IM Q3Hx2 312 MG IM ×2 (09:53→13:29)
[2024-05-04] MEDS: 0.9 % Sodium Chloride Flush 3 ML SYRINGE IVFLUSH ×2 (09:54→22:29)
--- NOTE | 2024-05-04 10:43 | PC.NURSE ---
Pt multiple episodes of incontinence of urine. Pt bed linens changed/cleaned up, continuously pulling tele leads/medical equipment. Tele leads replaced on chest, A-fib on [place] HR- 110s, maintaining O2 sat high 90s on RA. Pt lethargic but a/ox3- able to tell me where he is, birthday, place, time etc. Pt redirected when pulling on medical equipment. Plan for MRI, screening form obtained with and sent to MRI. Call beckman within reach, all needs met at this time.
--- NOTE | 2024-05-04 11:16 | MHC.CM.PN ---
Pt lives with his , he is functionally independent, drives, no home health services. He has a prosthetic leg. PCP is: Ken Kemp, to transport home at [place]. DCP: home, self care. CM to follow for DC needs.
--- NOTE | 2024-05-04 12:44 | PM.NEUROCN ---
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 According to his he never had seizure before. This seizure was noted while he was asleep. She noted that he was shaking. When she tried to communicate with him he was looking in space with blood coming out of his mouth. He was confused and did not know what happened. He was brought to [facility] where apparently he had another seizure few hours later after which she became aggressive and agitated and was sedated. I went to see him in emergency room couple of times and he was unarousable. Few hours later, he woke up and was able to communicate and converse. His was on bedside. There was no sign of distress. Review of Systems Review of Systems: He was drinking alcohol but according to his he was not alcoholic. No history of drug use. No exposure to new drugs or cold or flu-like illness. COUNT INCLUDES THE [facility] Past Medical History Medical History (Updated 05/04/24 @ 12:47 by Sully Pereyra MD) Presence of Watchman left atrial appendage closure device Amputated right leg Afib Surgical History Surgical History History of cholecystectomy Social History Social History Alcohol intake: current Patient Tobacco Use Status: Never used Tobacco Smoked in Last 30 Days: No Use of substances other than those prescribed or required for medical reasons: Yes Substance Use Type: Marijuana Advance Directives: No Nutrition Risks: No Nutritional Risk service: Yes Meds Allergies Allergy/AdvReac Type Severity Reaction Status Date / Time azithromycin Allergy Unknown Verified 05/04/24 02:03 Active Medications: Current Medications Acetaminophen (Acetaminophen 325 Mg Tablet) 975 mg PO Q6H PRN PRN Reason: Pain, Mild 1-3,fever,headache Calcium Carbonate (Calcium Carbonate 750 Mg Tab.Chew) 750 mg PO Q4H PRN PRN Reason: Heartburn Enoxaparin Sodium (Enoxaparin Sodium 40 Mg/0.4 Ml Syringe) 40 mg SUBCUT Q24H [facility] Last Admin: 05/04/24 06:29 Dose: 40 mg Folic Acid (Folic Acid 1 Mg Tablet) 1 mg PO DAILY [facility] Magnesium Hydroxide (Milk Of Magnesia 30 Ml Oral.Susp) 30 ml PO DAILY PRN PRN Reason: Constipation Melatonin (Melatonin 3 Mg Tablet) 6 mg PO BEDTIME PRN PRN Reason: Insomnia Multivitamins/Vitamin C (Multivitamin Tablet) 1 tab PO DAILY [facility] Ondansetron HCl (Ondansetron Hcl 4 Mg/2 Ml Vial) 4 mg IVPUSH Q8H PRN PRN Reason: Nausea and Vomiting Pharmacy Consult (Consult Rx Etoh Phenob Im/Po) 1 each MISCELLANE ONCE PRN; Protocol PRN Reason: Consult order Phenobarbital (Phenobarbital 30 Mg Tablet) 60 mg PO BID [facility] Stop: 05/06/24 09:01 Phenobarbital (Phenobarbital 30 Mg Tablet) 30 mg PO BID [facility] Stop: 05/08/24 09:01 Phenobarbital (Phenobarbital 30 Mg Tablet) 30 mg PO DAILY [facility] Stop: 05/10/24 09:01 Sodium Chloride (0.9 % Sodium Chloride Flush 3 Ml Syringe) 3 ml IVFLUSH QSHIFT [facility] Last Admin: 05/04/24 09:54 Dose: 3 ml Thiamine HCl (Thiamine Hcl 100 Mg Tablet) 100 mg PO DAILY [facility] Home Medications ?Medication ?Instructions ?Recorded ?Confirmed ?Last Taken ?Type acetaminophen 325 mg tablet 650 mg PO Q6H PRN Pain 05/04/24 05/04/24 Unknown History amoxicillin 875 mg tablet 875 mg PO BID 05/04/24 05/04/24 05/03/24 History ascorbic acid (vitamin C) 500 mg 500 mg PO DAILY 05/04/24 05/04/24 05/03/24 History tablet (Vitamin C) clopidogrel 75 mg tablet 75 mg PO DAILY 05/04/24 05/04/24 05/03/24 History ferrous gluconate 324 mg (38 mg 324 mg PO DAILY 05/04/24 05/04/24 05/03/24 History iron) tablet fluoxetine 20 mg tablet 20 mg PO DAILY 05/04/24 05/04/24 05/03/24 History gabapentin 300 mg capsule 300 mg PO BEDTIME 05/04/24 05/04/24 05/03/24 History metoprolol succinate 200 mg 200 mg PO DAILY 05/04/24 05/04/24 05/03/24 History tablet,extended release 24 hr omeprazole 20 mg capsule,delayed 20 mg PO BID@0630,1630 05/04/24 05/04/24 05/03/24 History release oxycodone 5 mg tablet 5 mg PO TID 05/04/24 05/04/24 05/03/24 History semaglutide 2 mg/dose (8 mg/3 mL) 2 mg subcut MO 05/04/24 05/04/24 05/02/24 History subcutaneous pen injector (Ozempic) valsartan 160 mg tablet 160 mg PO DAILY 05/04/24 05/04/24 05/03/24 History Physical Exam Vital Signs: Vital Signs: Last Vital Signs Temp 97.6 F 05/04/24 01:59 Pulse 103 H 05/04/24 09:54 Resp 18 05/04/24 09:54 BP 123/71 05/04/24 09:54 Pulse Ox 97 05/04/24 09:54 O2 Del Method Room Air 05/04/24 09:54 BMI result Body Mass Index 34.9 Neuro: Other: His little bit drowsy but able to wake up and make a conversation. Spontaneity and fluency of speech were normal. Comprehension was normal. He was following commands. Visual min are full. Extraocular muscles were full. Face was symmetrical. There was no obvious hand weakness but he was hesitant to move his right shoulder stating that it was hurting. This happened while he fell from his bed after the seizure. Results Labs 05/04/24 08:38 05/04/24 08:38 Labs: Short CBC 05/04/24 05/04/24 Range/Units 02:10 08:38 WBC 9.5 15.1 H (4.8-10.8) X10*3/uL Hgb 15.3 14.8 (14.0-18.0) g/dl Hct 44.2 42.5 (42.0-52.0) % Plt Count 274 227 (160-400) X10*3/uL BMP 05/04/24 05/04/24 02:10 08:38 Sodium 136 138 Potassium 3.5 3.1 L Chloride 103 103 Carbon Dioxide 22 26 BUN 16 15 Creatinine 0.79 0.72 Calcium 9.4 9.1 Cardiac Enzymes 05/04/24 Range/Units 02:10 Total Creatine Kinase 140 (38-174) U/L Liver Function 05/04/24 Range/Units 02:10 Total Bilirubin 1.3 H (0.0-1.0) mg/dL AST 33 (5-37) U/L ALT 20 (0-40) U/L Alkaline Phosphatase 66 (39-117) U/L Albumin 4.0 (3.5-5.0) g/dL Noncontrast head CT revealed mild cerebral atrophy. Assessment and Plan (1) Seizure disorder: Status: Acute New onset generalized seizure disorder. I recommend levetiracetam 1000 mg daily, tox screen, EEG, an MRI of brain if that was possible. Procedures Date of Service Date of Service: 05/04/24
--- NOTE | 2024-05-04 14:49 | PC.NURSE ---
Pt incontinent of urine, cleaned and changed up by this RN and director of teacher education. Pt continues to pull off tele leads/stickers- unable to be redirected when pulling them off. Pt remains a/ox3- confused at times, respirations even and unlabored, no increase wob/sob noted. Call beckman within reach, all needs met at this time.
--- NOTE | 2024-05-04 18:00 | HO.PM.IMPN ---
Subjective Subjective Date of Service: 05/04/24 Interval History: no complaints Physical Exam Vital Signs: Vital Signs: Last Vital Signs Temp 97.6 F 05/04/24 01:59 Pulse 103 H 05/04/24 09:54 Resp 18 05/04/24 13:20 BP 113/71 05/04/24 13:20 Pulse Ox 97 05/04/24 13:20 O2 Del Method Room Air 05/04/24 13:20 BMI result Body Mass Index 36.5 Patient was lethargic but arousable, oriented to person and place but poor insight into reason behind admission, lungs clear, no focal deficit Objective Data Active Medications Acetaminophen (Acetaminophen 325 Mg Tablet) 975 mg PO Q6H PRN PRN Reason: Pain, Mild 1-3,fever,headache Ascorbic Acid (Ascorbic Acid 500 Mg Tablet) 500 mg PO DAILY [facility] Calcium Carbonate (Calcium Carbonate 750 Mg Tab.Chew) 750 mg PO Q4H PRN PRN Reason: Heartburn Clopidogrel Bisulfate (Clopidogrel Bisulfate 75 Mg Tablet) 75 mg PO DAILY [facility] Enoxaparin Sodium (Enoxaparin Sodium 40 Mg/0.4 Ml Syringe) 40 mg SUBCUT Q24H MELISSA Last Admin: 05/04/24 06:29 Dose: 40 mg Documented By: RUCHI Fluoxetine HCl (Fluoxetine Hcl 20 Mg Capsule) 20 mg PO DAILY [facility] Folic Acid (Folic Acid 1 Mg Tablet) 1 mg PO DAILY [facility] Gabapentin (Gabapentin 300 Mg Capsule) 300 mg PO BEDTIME [facility] Levetiracetam (Levetiracetam 500 Mg Tablet) 500 mg PO BID [facility] Magnesium Hydroxide (Milk Of Magnesia 30 Ml Oral.Susp) 30 ml PO DAILY PRN PRN Reason: Constipation Melatonin (Melatonin 3 Mg Tablet) 6 mg PO BEDTIME PRN PRN Reason: Insomnia Metoprolol Succinate (Metoprolol Succinate Er 100 Mg Tab.Er.24h) 200 mg PO DAILY [facility]; Protocol Multivitamins/Vitamin C (Multivitamin Tablet) 1 tab PO DAILY [facility] Non-Formulary Medication (Ferrous Gluconate) 324 mg PO DAILY [facility] Omeprazole (Omeprazole 20 Mg Capsule.Dr) 20 mg PO BID@0630,1630 [facility] Ondansetron HCl (Ondansetron Hcl 4 Mg/2 Ml Vial) 4 mg IVPUSH Q8H PRN PRN Reason: Nausea and Vomiting Pharmacy Consult (Consult Rx Etoh Phenob Im/Po) 1 each MISCELLANE ONCE PRN; Protocol PRN Reason: Consult order Sodium Chloride (0.9 % Sodium Chloride Flush 3 Ml Syringe) 3 ml IVFLUSH QSHIFT MELISSA Last Admin: 05/04/24 16:17 Dose: Not Given Documented By: GRACE Non-Admin Reason: Previously Administered Thiamine HCl (Thiamine Hcl 100 Mg Tablet) 100 mg PO DAILY [facility] Valsartan (Valsartan 160 Mg Tablet) 160 mg PO DAILY [facility]; Protocol Labs 05/04/24 08:38 05/04/24 08:38 Labs: Laboratory Results - last 24 hr 05/04/24 05/04/24 05/04/24 02:10 02:20 08:38 MCV 85.5 86.0 MCH 29.6 30.0 MCHC 34.6 34.8 RDW 18.6 H 18.6 H Plt Count 274 227 MPV 9.5 10.1 Immature Gran % (Auto) 0.4 0.7 H Neut % (Auto) 86.7 H 85.4 H Lymph % (Auto) 7.7 L 5.7 L Barnes % (Auto) 4.4 7.9 Eos % (Auto) 0.3 0.0 Baso % (Auto) 0.5 0.3 Lymph # (Auto) 0.7 L 0.9 L Barnes # (Auto) 0.4 1.2 Eos # (Auto) 0.0 0.0 Baso # (Auto) 0.1 0.0 Abs Immat Gran (auto) 0.04 H 0.10 H Absolute Neuts (auto) 8.2 12.9 H Absolute Nucleated RBC 0.000 0.000 Nucleated RBC % (auto) 0.0 0.0 Anion Gap 15 12 Estim Creat Clear Calc 149.0 154.5 Estimated GFR > 60 > 60 Random Glucose 152 H 115 Estimat Average Glucose 108 Hemoglobin A1c % 5.4 Lactic Acid 2.0 Calcium 9.4 9.1 Magnesium 2.0 2.0 Total Bilirubin 1.3 H AST 33 ALT 20 Alkaline Phosphatase 66 Total Creatine Kinase 140 Total Protein 7.5 Albumin 4.0 TSH 0.92 Ethyl Alcohol < 10 Assessment and Plan (1) Seizure: Status: Acute Plan 64M PMH obesity, chronic AFib status post Watchman on aspirin, history of 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 Chronic AFib Status post Watchman Continue metoprolol Hypertension Continue metoprolol and valsartan CARMEN CPAP Obesity Weight loss recommended On Ozempic at home dvt prophylaixs - lovenox full code reason for continued hospitalization: monitoring seizure Quality Stroke Does the patient have a stroke diagnosis?: No VTE Prior VTE?: No VTE Risk Level:: Medical - moderate - high VTE Device Contraindication: Treatment Not Indicated VTE Drug Contraindication: N/A - Med Ordered
[2024-05-04] MEDS: Gabapentin 300 MG CAPSULE PO (22:29)
[2024-05-04] MEDS: levETIRAcetam 500 MG TABLET PO (22:29)
--- NOTE | 2024-05-05 | EEG_ITS ---
This is a 16 channel EEG with an EKG lead. The patient is reported awake during the tracing. Background EEG rhythm is low amplitude fast with no obvious asymmetry or paroxysmal tendency. Photic stimulation does not produce any significant abnormality. Hyperventilation is not performed. Cardiac lead does not reveal any significant abnormality. No sharp wave spikes or paroxysmal tendency noted. IMPRESSION: Unremarkable EEG. MD RICKIE Mckay/GILBERT / [id number]
[2024-05-05] MEDS: Acetaminophen 325 MG TABLET 975 MG PO ×3 (00:16→15:33)
[2024-05-05 03:18] VITALS: BP 160/77; PULSE 92; RESP 20; TEMP 36.1; O2SAT 96
[2024-05-05] MEDS: Enoxaparin Sodium 40 MG/0.4 ML SYRINGE SUBCUT (05:36)
[2024-05-05] MEDS: Pantoprazole Sodium 20 MG TABLET.DR 40 MG PO ×2 (05:37→15:33)
[2024-05-05 06:57] LABS: MANUAL DIFF FLAG NO
[2024-05-05 07:02] LABS: Basophils Absolute Auto 0.1 X10*3/uL (0.0-0.2); Basophils Percent Auto 0.9 % (0-2); Eosinophils Percent Auto 0.2 % (0-4); Hematocrit 43.5 % (42.0-52.0); Hemoglobin 15.5 g/dl (14.0-18.0); Imm Gran Abs Auto 0.05 X10*3/uL (0.00-0.03); Imm Gran Pct Auto 0.4 % (0.0-0.4); Lymphocytes Absolute Auto 1.4 X10*3/uL (1.2-4.9); Lymphocytes Percent Auto 11.2 % (20-40); Mean Corpuscular HGB Conc 35.6 g/dl (31.0-36.0); Mean Corpuscular Hemoglobin 30.4 pg (27.0-33.0); Mean Corpuscular Volume 85.3 fL (80.0-98.0); Mean Platelet Volume 9.8 fL (9.4-12.4); Monocytes Absolute Auto 1.5 X10*3/uL (0.1-1.2); Monocytes Percent Auto 12.1 % (2-11); Neutrophils Absolute Auto 9.3 x10*3/uL (2.0-8.3); Neutrophils Percent Auto 75.2 % (45-73); Platelet Count 241 X10*3/uL (160-400); Red Cell Distribution Width 18.1 % (11.0-16.0); White Blood Count 12.3 X10*3/uL (4.8-10.8)
[2024-05-05 07:17] VITALS: BP 136/85; PULSE 97; RESP 20; TEMP 36; O2SAT 98
[2024-05-05 07:34] LABS: Anion Gap 14 (12-20); Blood Urea Nitrogen 15 mg/dL (9-16); Carbon Dioxide 25 mmol/L (22-29); Chloride 102 mmol/L (96-108); Estimated Glomerular Filt Rate > 60; Glucose Random 112 mg/dL (60-115); Potassium 2.6 mmol/L (3.3-5.1); Sodium 138 mmol/L (135-145)
[2024-05-05] MEDS: Potassium Chloride/H20 10 MEQ/100 ML PIGGYBACK 100 MEQ IV ×4 (09:20→12:32)
[2024-05-05] MEDS: 0.9 % Sodium Chloride Flush 3 ML SYRINGE IVFLUSH ×3 (09:21→20:21)
[2024-05-05] MEDS: Multivitamin TABLET 1 TAB PO (09:23)
[2024-05-05] MEDS: Potassium Chloride ER 20 MEQ TAB.ER.PRT 40 MEQ PO (09:23)
[2024-05-05] MEDS: FLUoxetine HCl 20 MG CAPSULE PO (09:23)
[2024-05-05] MEDS: Metoprolol Succinate ER 100 MG TAB.ER.24H 200 MG PO (09:23)
[2024-05-05] MEDS: Ferrous Sulfate 324 MG TABLET.DR PO (09:23)
[2024-05-05] MEDS: Folic Acid 1 MG TABLET PO (09:23)
[2024-05-05] MEDS: Valsartan 160 MG TABLET PO (09:23)
[2024-05-05] MEDS: Thiamine HCL 100 MG TABLET PO (09:24)
[2024-05-05] MEDS: Clopidogrel Bisulfate 75 MG TABLET PO (09:24)
[2024-05-05] MEDS: Ascorbic Acid 500 MG TABLET PO (09:24)
[2024-05-05] MEDS: levETIRAcetam 500 MG TABLET PO ×2 (09:28→20:20)
--- NOTE | 2024-05-05 09:35 | HO.PM.IMPN ---
Subjective Subjective Date of Service: 05/05/24 Interval History: No seizures today Physical Exam Vital Signs: Vital Signs: Last Vital Signs Temp 96.8 F 05/05/24 07:17 Pulse 97 05/05/24 07:17 Resp 20 05/05/24 07:17 BP 136/85 05/05/24 07:17 Pulse Ox 98 05/05/24 07:17 O2 Del Method Room Air 05/05/24 07:17 BMI result Body Mass Index 36.5 Less lethargic appearing though still very sleepy, oriented to person and place and diagnosis today but not time Objective Data Active Medications Acetaminophen (Acetaminophen 325 Mg Tablet) 975 mg PO Q6H PRN PRN Reason: Pain, Mild 1-3,fever,headache Last Admin: 05/05/24 09:23 Dose: 975 mg Documented By: DAVID Ascorbic Acid (Ascorbic Acid 500 Mg Tablet) 500 mg PO DAILY [facility] Last Admin: 05/05/24 09:24 Dose: 500 mg Documented By: DAVID Calcium Carbonate (Calcium Carbonate 750 Mg Tab.Chew) 750 mg PO Q4H PRN PRN Reason: Heartburn Clopidogrel Bisulfate (Clopidogrel Bisulfate 75 Mg Tablet) 75 mg PO DAILY [facility] Last Admin: 05/05/24 09:24 Dose: 75 mg Documented By: DAVID Enoxaparin Sodium (Enoxaparin Sodium 40 Mg/0.4 Ml Syringe) 40 mg SUBCUT Q24H [facility] Last Admin: 05/05/24 05:36 Dose: 40 mg Documented By: SHAZIA Ferrous Sulfate (Ferrous Sulfate 324 Mg Tablet.) 324 mg PO DAILY [facility] Last Admin: 05/05/24 09:23 Dose: 324 mg Documented By: DAVID Fluoxetine HCl (Fluoxetine Hcl 20 Mg Capsule) 20 mg PO DAILY [facility] Last Admin: 05/05/24 09:23 Dose: 20 mg Documented By: DAVID Folic Acid (Folic Acid 1 Mg Tablet) 1 mg PO DAILY [facility] Last Admin: 05/05/24 09:23 Dose: 1 mg Documented By: DAVID Gabapentin (Gabapentin 300 Mg Capsule) 300 mg PO BEDTIME [facility] Last Admin: 05/04/24 22:29 Dose: 300 mg Documented By: SHAZIA Potassium Chloride (Potassium Chloride/H20) 10 meq in 100 mls @ 100 mls/hr IV Q1H [facility] Stop: 05/05/24 11:44 Last Admin: 05/05/24 09:20 Dose: 100 mls/hr Documented By: DAVID Levetiracetam (Levetiracetam 500 Mg Tablet) 500 mg PO BID [facility] Last Admin: 05/05/24 09:28 Dose: 500 mg Documented By: DAVID Magnesium Hydroxide (Milk Of Magnesia 30 Ml Oral.Susp) 30 ml PO DAILY PRN PRN Reason: Constipation Melatonin (Melatonin 3 Mg Tablet) 6 mg PO BEDTIME PRN PRN Reason: Insomnia Metoprolol Succinate (Metoprolol Succinate Er 100 Mg Tab.Er.24h) 200 mg PO DAILY [facility]; Protocol Last Admin: 05/05/24 09:23 Dose: 200 mg Documented By: DAVID Multivitamins/Vitamin C (Multivitamin Tablet) 1 tab PO DAILY [facility] Last Admin: 05/05/24 09:23 Dose: 1 tab Documented By: DAVID Ondansetron HCl (Ondansetron Hcl 4 Mg/2 Ml Vial) 4 mg IVPUSH Q8H PRN PRN Reason: Nausea and Vomiting Pantoprazole Sodium (Pantoprazole Sodium 20 Mg Tablet.) 40 mg PO BID@0630,1630 [facility] Last Admin: 05/05/24 05:37 Dose: 40 mg Documented By: SHAZIA Pharmacy Consult (Consult Rx Etoh Phenob Im/Po) 1 each MISCELLANE ONCE PRN; Protocol PRN Reason: Consult order Sodium Chloride (0.9 % Sodium Chloride Flush 3 Ml Syringe) 3 ml IVFLUSH QSHIFT [facility] Last Admin: 05/05/24 09:21 Dose: 3 ml Documented By: DAVID Thiamine HCl (Thiamine Hcl 100 Mg Tablet) 100 mg PO DAILY [facility] Last Admin: 05/05/24 09:24 Dose: 100 mg Documented By: DAVID Valsartan (Valsartan 160 Mg Tablet) 160 mg PO DAILY [facility]; Protocol Last Admin: 05/05/24 09:23 Dose: 160 mg Documented By: DAVID Labs 05/05/24 06:41 05/05/24 06:41 Labs: Laboratory Results - last 24 hr 05/05/24 06:41 MCV 85.3 MCH 30.4 MCHC 35.6 RDW 18.1 H Plt Count 241 MPV 9.8 Immature Gran % (Auto) 0.4 Neut % (Auto) 75.2 H Lymph % (Auto) 11.2 L Daniels % (Auto) 12.1 H Eos % (Auto) 0.2 Baso % (Auto) 0.9 Lymph # (Auto) 1.4 Daniels # (Auto) 1.5 H Eos # (Auto) 0.0 Baso # (Auto) 0.1 Abs Immat Gran (auto) 0.05 H Absolute Neuts (auto) 9.3 H Absolute Nucleated RBC 0.000 Nucleated RBC % (auto) 0.0 Anion Gap 14 Estim Creat Clear Calc 165.0 Estimated GFR > 60 Random Glucose 112 Calcium 9.0 Magnesium 2.0 Assessment and Plan (1) Seizure: Status: Acute Plan 64M PMH obesity, chronic AFib status post Watchman on aspirin, 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 Acute hypokalemia Replace and monitor Chronic AFib Status post Watchman Continue metoprolol Hypertension Continue metoprolol and valsartan CARMEN CPAP Obesity Weight loss recommended On Ozempic at home dvt prophylaixs - lovenox full code reason for continued hospitalization: monitoring seizure Quality Stroke Does the patient have a stroke diagnosis?: No VTE Prior VTE?: No VTE Risk Level:: Medical - moderate - high VTE Device Contraindication: Treatment Not Indicated VTE Drug Contraindication: N/A - Med Ordered
[2024-05-05 10:56] VITALS: BP 137/89; PULSE 106; RESP 20; TEMP 36.3; O2SAT 97
[2024-05-05 12:02] VITALS: PULSE 94; RESP 19; O2SAT 94
[2024-05-05] MEDS: Lidocaine 4 % Patch ADH..PATCH 1 PATCH TRANSDERMA (13:36)
[2024-05-05 16:00] VITALS: BP 134/89; PULSE 101; RESP 22; TEMP 36.4; O2SAT 98
[2024-05-05 17:40] LABS: Appearance Urine Clear; Color Urine Dark Yellow; Glucose Urine UA Negative (Negative); Leukocyte Esterase Urine Negative (Negative); Nitrite Urine Negative (Negative); Specific Gravity - Urine 1.025 (1.005-1.025); UMIC TRIGGER UACC YES; Urine Blood Trace (Negative); Urine Ketones 15 mg/dL (Negative); Urine Protein Trace mg/dL (Neg-Trace)
[2024-05-05 17:47] LABS: Bacteria Urine None Seen (None Seen); Hyaline Casts Urine 0-2 /LPF (0-2); Squamous Epithelial Cell Urine 0-2 /HPF (0-2); WBC Urine 0-5 /HPF (0-5)
[2024-05-05 18:32] LABS: Amphetamine Screen Urine Not Detected (Not Detect); Barbiturates, Urine POSITIVE (Not Detect); Benzodiazepines Screen Urine Not Detected (Not Detect); Buprenorphine Scr Not Detected (Not Detect); Cannabinoid Screen Urine POSITIVE (Not Detect); Cocaine Screen Urine Not Detected (Not Detect); Fentanyl, urine Not Detected (Not Detect); Methadone Screen, Urine Not Detected (Not Detect); Opiate Screen Urine Not Detected (Not Detect); Oxycodone Screen Urine Positive (Not Detect); Phencyclidine Screen Urine Not Detected (Not Detect)
[2024-05-05 19:54] VITALS: BP 127/92; PULSE 89; RESP 18; TEMP 36.9; O2SAT 97
[2024-05-05] MEDS: Gabapentin 300 MG CAPSULE PO (20:20)
[2024-05-06] VITALS: BP 125/83; PULSE 94; RESP 18; TEMP 36.1; O2SAT 98
[2024-05-06 01:54] VITALS: PULSE 81; O2SAT 96
[2024-05-06 03:01] VITALS: BP 111/77; PULSE 99; RESP 18; TEMP 36.4; O2SAT 98
[2024-05-06] MEDS: Enoxaparin Sodium 40 MG/0.4 ML SYRINGE SUBCUT (07:16)
[2024-05-06] MEDS: Pantoprazole Sodium 20 MG TABLET.DR 40 MG PO (07:17)
[2024-05-06 07:20] LABS: MANUAL DIFF FLAG NO
[2024-05-06 07:29] LABS: Basophils Absolute Auto 0.1 X10*3/uL (0.0-0.2); Eosinophils Absolute Auto 0.1 X10*3/uL (0.0-0.4); Eosinophils Percent Auto 0.6 % (0-4); Hematocrit 43.8 % (42.0-52.0); Hemoglobin 15.5 g/dl (14.0-18.0); Imm Gran Abs Auto 0.05 X10*3/uL (0.00-0.03); Imm Gran Pct Auto 0.4 % (0.0-0.4); Lymphocytes Absolute Auto 1.5 X10*3/uL (1.2-4.9); Mean Corpuscular HGB Conc 35.4 g/dl (31.0-36.0); Mean Corpuscular Hemoglobin 30.8 pg (27.0-33.0); Mean Corpuscular Volume 86.9 fL (80.0-98.0); Mean Platelet Volume 10.1 fL (9.4-12.4); Monocytes Absolute Auto 1.2 X10*3/uL (0.1-1.2); Monocytes Percent Auto 10.7 % (2-11); Neutrophils Absolute Auto 8.5 x10*3/uL (2.0-8.3); Neutrophils Percent Auto 74.3 % (45-73); Platelet Count 249 X10*3/uL (160-400); Red Blood Count 5.04 X10*6/uL (4.60-5.80); White Blood Count 11.5 X10*3/uL (4.8-10.8)
[2024-05-06 08:00] VITALS: BP 135/68; PULSE 91; RESP 20; TEMP 36.1; O2SAT 97
--- NOTE | 2024-05-06 08:51 | P.DS_ITS ---
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 The patient has no history of seizure disorder. He was found gurgling in his sleep his who removed his CPAP knee ruled out of bed. He was confused and diaphoretic, still confused when EMS arrived then suddenly came back to baseline. He was alert and oriented when he arrived to the ED with blood in his mouth from biting his tongue. He experienced another seizure while in the ED and was started on Keppra and given 4mg total Ativan. He does drink alcohol daily and reports a few beers a day or vodka, last drink was last night. His does not know any decreased alcohol use. He has never had a history of alcohol withdrawal or seizures. They deny any drug use. No new medications. He does take gabapentin 100 mg 1 time daily and has taken this for years, has not missed any recent doses to her knowledge. The patient's gives a history as the patient is postictal and unable to follow conversation. She reports that he has not had any recent illness including nausea, vomiting, fever, chills, abdominal pain, urinary symptoms cough. She reports that he does not complain often therefore there may have been something going on that she is not aware of. He has been seeing a dentist and is on amoxicillin for [facility] o[facility] procedure. hospital course: Patient was admitted for seizure complicated by acute metabolic encephalopathy due to postictal state. Patient's significant alcohol use been unclear if this was withdrawal versus lowering of seizure threshold. Patient did not display any other signs of withdrawal. Phenobarbital was discontinued. MRI was unremarkable. Was seen by Neurology recommended starting Keppra 500 mg b.i.d. avoiding alcohol and avoiding driving. will follow up with Neurology as outpatient. For acute hypokalemia received replacement. Patient was also complaining of right shoulder pain. X-ray showed arthritis but no acute trauma. We will be referred for MRI of the shoulder outpatient to rule out rotator cuff tear. Course also complicated by urinary retention requiring 1 time straight cath. Will be discharged on Flomax and Proscar and should follow up with Urology. For chronic atrial fibrillation status post Watchman was continued on metoprolol. For hypertension was continue metoprolol and valsartan. For CARMEN continue CPAP. For obesity weight loss recommended and is on Ozempic at home. Patient is mental status returned to baseline and will be discharged home. Time Attestation Discharge Coordination Time (in mins): 34 Quality: Safe Use of Opioids Does Pt have an Active Cancer Diagnosis on the Problem List?: No Quality: Stroke Does the patient have a stroke diagnosis?: No Physical Exam Vital Signs: Vital Signs: Last Vital Signs Temp 96.9 F 05/06/24 08:00 Pulse 91 05/06/24 08:00 Resp 20 05/06/24 08:00 BP 135/68 05/06/24 08:00 Pulse Ox 97 05/06/24 08:00 O2 Del Method Room Air 05/06/24 08:00 BMI result Body Mass Index 36.5 General: AO X 3, no acute distress Resp: CTA bilateral, no accessory muscles used CVS: S1,S2,RRR GI: soft, non tender, non distended Neuro: motor grossly intact, alert Psych: appropriate affect, appropriate insight DS: Data Data Completed and Pending Labs on day of discharge: Laboratory Results - last 24 hr 05/05/24 05/05/24 05/06/24 17:22 17:25 06:44 WBC 11.5 H RBC 5.04 Hgb 15.5 Hct 43.8 MCV 86.9 MCH 30.8 MCHC 35.4 RDW 18.0 H Plt Count 249 MPV 10.1 Immature Gran % (Auto) 0.4 Neut % (Auto) 74.3 H Lymph % (Auto) 13.0 L Barry % (Auto) 10.7 Eos % (Auto) 0.6 Baso % (Auto) 1.0 Lymph # (Auto) 1.5 Barry # (Auto) 1.2 Eos # (Auto) 0.1 Baso # (Auto) 0.1 Abs Immat Gran (auto) 0.05 H Absolute Neuts (auto) 8.5 H Absolute Nucleated RBC 0.000 Nucleated RBC % (auto) 0.0 Urine Color Dark Yellow Urine Appearance Clear Urine pH 6.0 Ur Specific [place] 1.025 Urine Protein Trace Urine Glucose (UA) Negative Urine Ketones 15 Urine Blood Trace H Urine Nitrite Negative Ur Leukocyte Esterase Negative Urine RBC 3-5 H Urine WBC 0-5 Ur Squamous Epith Cells 0-2 Urine Bacteria None Seen Hyaline Casts 0-2 Urine Opiates Screen Not Detected Ur Buprenorphine Scrn Not Detected Ur Oxycodone Screen Positive H Urine Methadone Screen Not Detected Urine Fentanyl Screen Not Detected Ur Barbiturates Screen POSITIVE H Ur Phencyclidine Scrn Not Detected Ur Amphetamines Screen Not Detected U Benzodiazepines Scrn Not Detected Urine Cocaine Screen Not Detected U Marijuana (THC) Screen POSITIVE H Discharge Plan Discharge Anticipated Discharge Date/Time: 05/06/24 08:48 Patient Disposition: Home, Self-Care Discharge Diagnosis: Seizure Referrals: Keith Whyte MD [Physician] - 1 Week Ken Hines MD [Primary Care Provider] - 1 Week Sully Pereyra MD [Physician] - 1 Week Discharge Medications: New levetiracetam 500 mg Tablet 500 mg PO BID Qty: 180 0RF tamsulosin [Flomax] 0.4 mg capsule 0.4 mg PO BEDTIME Qty: 90 0RF finasteride [Proscar] 5 mg tablet 5 mg PO DAILY Qty: 90 0RF Continued metoprolol succinate 200 mg tablet extended release 24 hr 200 mg PO DAILY clopidogrel 75 mg tablet 75 mg PO DAILY fluoxetine 20 mg tablet 20 mg PO DAILY gabapentin 300 mg capsule 300 mg PO BEDTIME omeprazole 20 mg capsule,delayed release(DR/EC) 20 mg PO BID@0630,1630 oxycodone 5 mg tablet 5 mg PO TID valsartan 160 mg tablet 160 mg PO DAILY ferrous gluconate 324 mg (38 mg iron) tablet 324 mg PO DAILY Ozempic 2 mg/dose (8 mg/3 mL) pen injector 2 mg subcut [place] acetaminophen 325 mg Tablet 650 mg PO Q6H PRN (Reason: Pain) ascorbic acid (vitamin C) [Vitamin C] 500 mg Tablet 500 mg PO DAILY Discontinued amoxicillin 875 mg tablet 875 mg PO BID Discharge Orders: Discharge Order (Routine); Ordered 05/06/24 Ordered By: Kieran Raza Diet: No alcohol Activity on Discharge: No driving Stand Alone Forms: Patient Portal Discharge page Print Language: Ukrainian Other Ambulatory Orders: MR shoulder RT wo con (Routine) Timeframe: 1 Week Facility: [facility] - Location: MRI Ordered By: Kieran Raza Care Plan Goals: Prevent seizures Health Concerns: Seizures, urinary retnetion, right shoulder pain Plan of Treatment: Avoid alcohol, no driving until cleared by Neurology starting on flomax and proscar for urinary retention, follow up urology for right shoulder pain refered for MRI, follow up with pcp/ortho depending on results Assessment: See above Patient Instructions: Recurrent Seizures in Adults (ED)
[2024-05-06] MEDS: Multivitamin TABLET 1 TAB PO (08:55)
[2024-05-06] MEDS: Metoprolol Succinate ER 100 MG TAB.ER.24H 200 MG PO (08:55)
[2024-05-06] MEDS: Ascorbic Acid 500 MG TABLET PO (08:55)
[2024-05-06] MEDS: levETIRAcetam 500 MG TABLET PO (08:56)
[2024-05-06] MEDS: FLUoxetine HCl 20 MG CAPSULE PO (08:57)
[2024-05-06] MEDS: Thiamine HCL 100 MG TABLET PO (08:57)
[2024-05-06] MEDS: Valsartan 160 MG TABLET PO (08:57)
[2024-05-06] MEDS: Clopidogrel Bisulfate 75 MG TABLET PO (08:58)
[2024-05-06] MEDS: Folic Acid 1 MG TABLET PO (08:58)
[2024-05-06] MEDS: Lidocaine 4 % Patch ADH..PATCH 1 PATCH TRANSDERMA (08:59)
[2024-05-06] MEDS: Ferrous Sulfate 324 MG TABLET.DR PO (08:59)
--- NOTE | 2024-05-06 09:06 | MHC.CM.PN ---
Patient has been medically cleared for dc to home today, self care.
[2024-05-06 10:03] LABS: Anion Gap 13 (12-20); Blood Urea Nitrogen 15 mg/dL (9-16); Calcium 9.3 mg/dL (8.4-10.2); Carbon Dioxide 25 mmol/L (22-29); Chloride 102 mmol/L (96-108); Estimated Glomerular Filt Rate > 60; Glucose Random 116 mg/dL (60-115); Potassium 3.2 mmol/L (3.3-5.1); Sodium 137 mmol/L (135-145)
--- NOTE | 2024-05-06 10:06 | PC.NURSE ---
Addendum entered by Enrique Welch RN 05/06/24 13:08: post void bladder scan 190ml Original Note: Informed MD of pt and family concerns; pt not being able to completely void and empty bladder w/ hx of being str cath'ed at least once this admission, RUE LROM and pain, EEG not being completed. MD speaking with pt and family at bedside post rounds
[2024-05-06] MEDS: Acetaminophen 325 MG TABLET 975 MG PO (10:11)
[2024-05-06] MEDS: Potassium Chloride ER 20 MEQ TAB.ER.PRT 40 MEQ PO (10:23)
[2024-05-06 12:25] VITALS: BP 141/93; PULSE 88; RESP 18; TEMP 36.1; O2SAT 96
== END 2024-05-06 13:29 | disposition home or self-care (01) | DRG 101 ==
LOC: HO.ED 07:17 → HO.EDOVER 07:25 → HO.IMC 14:58
PROVIDERS: Emergency Medicine Emergency Medical Services; Admitting Provider Physician Assistant; Emergency Provider Emergency Medicine; PCP Internal Medicine; Visit Provider Internal Medicine
DX: R56.9 Unspecified convulsions (principal); I48.20 Chronic atrial fibrillation, unspecified; G47.33 Obstructive sleep apnea (adult) (pediatric); E78.5 Hyperlipidemia, unspecified; R73.03 Prediabetes; I10 Essential (primary) hypertension; E87.6 Hypokalemia; F10.90 Alcohol use, unspecified, uncomplicated; E66.9 Obesity, unspecified; Z68.36 Body mass index [BMI] 36.0-36.9, adult; Z71.3 Dietary counseling and surveillance; Z89.511 Acquired absence of right leg below knee; Z95.818 Presence of other cardiac implants and grafts; Z79.02 Long term (current) use of antithrombotics/antiplatelets; Z79.82 Long term (current) use of aspirin; Z79.899 Other long term (current) drug therapy
CPT/HCPCS: 36415; 70450; 70551; 73030; 80048; 80053; 80307; 81001; 82550; 83036; 83605; 83735; 84443; 84484; 85025; 93005; 94660; 95816; 99285; J1200; J1630; J1650; J1953; J2060; J2560; J3411; J3480; J3486

== ENCOUNTER → 2024-05-04 02:12 | Outpatient (BNV) | payer OTHER, BC, SELFPAY | PROVIDERS: Admitting Provider Physician Assistant; Emergency Provider Emergency Medicine; Visit Provider Internal Medicine | DX: I48.91 Unspecified atrial fibrillation (principal) | CPT/HCPCS: 93010 ==

== ENCOUNTER → 2024-05-04 02:18 | Outpatient (BNV) | payer OTHER, BC, SELFPAY | PROVIDERS: Visit Provider Radiology Diagnostic Radiology | DX: M19.011 Primary osteoarthritis, right shoulder (principal); M89.8X1 Other specified disorders of bone, shoulder | CPT/HCPCS: 70450; 70551; 73010; 73030 ==

== ENCOUNTER → 2024-05-04 07:25 | Outpatient (BNV) | payer OTHER, BC, SELFPAY | PROVIDERS: Admitting Provider Physician Assistant; Emergency Provider Emergency Medicine; Visit Provider Internal Medicine | DX: R56.9 Unspecified convulsions (principal) | CPT/HCPCS: 99223; 99232; 99499 ==

== ENCOUNTER → 2024-05-04 07:25 | Outpatient (BNV) | payer OTHER, BC, SELFPAY | PROVIDERS: Admitting Provider Physician Assistant; Emergency Provider Emergency Medicine; Visit Provider Psychiatry & Neurology Neurology | DX: G40.909 Epilepsy, unspecified, not intractable, without status epilepticus (principal) | CPT/HCPCS: 99222 ==

== ENCOUNTER 2024-06-29 11:03 | Outpatient (AMB) | payer BC, SELFPAY ==
--- NOTE | 2024-06-29 11:09 | A.OFFVIS_ITS ---
Intake Visit Reasons: urinary retention Intake Note: New Patient presents for initial visit for urinary retention Urology Medications: tamsulosin, finasteride Blood Thinner: clopidogrel PVR: 0ml's Blister Packing Machine Tender Required: No Accompanied by: Unknown Allergies erythromycin base Allergy (Verified 06/29/24 11:56) fingers swelled HPI Comments Details: Hugo is a 64-year-old male patient of Dr. Hines. He has a past medical history of atrial fibrillation status post multiple cardioversions and Watchman placement 01/16, hypercholesteremia, hypertension, depression, sleep apnea on CPAP, right BKA, and seizure disorder. He presents to the office today as a new patient for urinary retention. In discussion with the patient today he reports having been hospitalized here at [facility] status post having had a seizure at which time he was also noted to be in urinary retention and a Nettles catheter was placed and he was started on Flomax and finasteride and recommendations were made for urology referral for further assessment evaluation. He reports prior to seizure he had no urological issues and believes he continues with no urological issues. His main concern is wanting to discontinue urological medications. We discussed potential causes of urinary retention as well as further workup to include imaging and labs as well as ARTHUR however patient does not feel this is necessary at this time. He does not wish to continue with scheduled follow-up care. He would like to call if he needs any urological assistance. In office urinalysis results reviewed with the patient today. PVR 0 mL. He denies urinary urgency, urinary frequency, incontinence, nocturia, hematuria, dysuria, foul smelling urine, changes to urinary stream, flank pain, fever, and or chills. He is happy with his current voiding parameters. Patient was informed and verbally consented to the use of an ambient scribe for clinic note documentation during this visit. Discussion Notes I reviewed with the patient the potential implications of benign prostatic hyperplasia (BPH) and age-related prostate enlargement. We discussed medication management for urinary retention, which the patient experienced following a seizure but has since resolved. I encouraged him to continue periodic consultations for any future urological needs however he does not feel this is necessary at this time. I assured the patient that he could contact the clinic easily for appointments if required in the upcoming years without being classified as a new patient unless the duration exceeds three years. [facility] Medical History Presence of Watchman left atrial appendage closure device Amputated right leg Afib Surgical History History of cholecystectomy Social History Household Members: Spouse Housing: Homeless Do you presently have visiting nurse or other home services: No Alcohol intake: current Patient Tobacco Use Status: Never used Tobacco Substance Use Type: Marijuana service: Yes Review of Systems Const All systems reviewed & are unremarkable except as noted in HPI and below Physical Exam Const General: cooperative, healthy appearing, comfortable, no acute distress, well developed, alert and awake Orientation/consciousness: patient oriented x3 Limitations: other limitations (right BTK prosthetic ) HEENT Head: Yes normal to inspection, Yes normocephalic and Yes atraumatic Ears: hearing grossly normal bilaterally Eyes General: appearance normal, both eyes and all related structures Neck Neck: Yes normal visual inspection and Yes trachea midline Chest Chest palpation & inspection: normal inspection of the chest Resp Effort & Inspection: normal respiratory effort and able to speak in complete sentences Cardio Rate: regular rate GI Inspection: Yes normal to inspection General: Yes no CVA tenderness Back/Spine/Pelvis Back: no CVA tenderness Skin General skin exam: no rashes or lesions noted Neuro General: patient oriented x3 Extrem General: Yes normal to inspection Psych Appearance: grossly normal and well kempt Mental Status: mental status grossly normal Speech and movement: Normal speech and movement present and Clear speech present Affect: normal affect Attitude: cooperative Thought process: Normal thought process present Thought content: Normal thought content present Insight: Fair insight present (Psych) Judgement: Fair judgement present (Psych) Office Procedures Post Void Residual Post Residual Void Post Void Residual (PVR): 0 [id number] Void Residual by ultrasound Results AMB Urinalysis, Automated UA Leukoctes 0 Radha/uL Last Edit by Patrick Reyes on 06/29/24 11:34 UA Nitrite Last Edit by Patrick Reyes on 06/29/24 11:34 UA Urobilinogen 0.2 mg/dL Last Edit by Patrick Reyes on 06/29/24 11:34 UA Protein 0 mg/dL Last Edit by Patrick Reyes on 06/29/24 11:34 UA pH 6.0 Last Edit by Patrick Reyes on 06/29/24 11:34 UA Blood 0 Sammy/uL Last Edit by Tetris Onlinejaspreete Eric on 06/29/24 11:34 UA Specific [place] 1.015 Last Edit by Dashi Intelligencecarole Dashernapoleon on 06/29/24 11:34 UA Ketone Last Edit by Tetris Onlineaddy Reyes on 06/29/24 11:34 UA Bilirubin 0 mg/dL Last Edit by Patrick Reyes on 06/29/24 11:34 UA Glucose 0 mg/dL Last Edit by Tetris Onlineaddy Reeys on 06/29/24 11:34 Results Reviewed Results Reviewed: Laboratory Last Values Urine pH (Auto) 6.0 06/29/24 11:33 Specific [place] (Auto) 1.015 06/29/24 11:33 Urine Protein (Auto) 0 mg/dL 06/29/24 11:33 Glucose (UA)(Auto) 0 mg/dL 06/29/24 11:33 Urine Blood (Auto) 0 Sammy/uL 06/29/24 11:33 Urine Bilirubin (Auto) 0 mg/dL 06/29/24 11:33 Urine Urobilinogen (Auto) 0.2 mg/dL 06/29/24 11:33 Leukocyte Esterase (Auto) 0 Radha/uL 06/29/24 11:33 Assessment & Plan Assessment & Plan (1) Urinary retention: Code(s): R33.9 - Retention of urine, unspecified Category: Medical Plan In office urinalysis results reviewed with the patient today; as noted above. PVR 0 mL. We discussed obtaining PSA and imaging for further assessment evaluation however patient declines at this time as he does not feel he has any bothersome urinary issues or concerns at this time. He reports be happy with current voiding parameters. Stop Flomax and finasteride Follow-up. Orders: Orders AMB Urinalysis Automated Today Z13.9 - Encounter for screening, unspecified AMB Post Void Residual by ultrasound Today Z13.9 - Encounter for screening, unspecified Medications: Discontinued finasteride (Proscar) Discontinued Reason: Patient no longer taking 5 mg PO DAILY 90 tabs 0RF tamsulosin (Flomax) Discontinued Reason: Patient no longer taking 0.4 mg PO BEDTIME 90 caps 0RF Patient Instructions: The patient had an opportunity to ask questions regarding the treatment plan. All questions were answered. Physical exam, labs, and imaging were discussed and reviewed in detail. As well as risks, benefits, and discussion of treatment choices. No major barriers to understanding were identified. The patient expressed understanding and agreement with the above treatment plan. The patient was made aware they should contact our office by phone for worsening of their current condition, the appearance of new symptoms, or with any questions or concerns. Compliance is encouraged with any medications and follow up testing that is ordered. It is a privilege to be allowed the opportunity to participate in? your urological care.? Again, if you have any questions or concerns If you have any questions or concerns please do not hesitate to contact me. The office is [phone]. This note is constructed using voice recognition software. While every effort has been made to ensure accuracy police superintendent errors may have been included. Yours sincerely, JULIAN Doyle Coding Level of Care Code New Pt Level 3 (47505) Diagnoses Urinary retention R33.9 CPT Codes Post Residual Void - PVR CPT Code: 05520-Etur Void Residual by ultrasound ([id number])
--- OUTSIDE RECORDS SUMMARY | 2024-06-29 12:28 | XMS_ITS ---
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 Name Role Phone JUAN OBRIEN Primary Care Provider Unavaileddie [facility] Insurance Providers: All historical and [...] JESSE FAMIL Y Mar 07, 2000 [id number] [phone] JAY KRISHNA PATIENT ANTHEM BCBS FEDERAL PREFERRED PROVIDER ORGANIZAT ION (PPO) STAND JESSE FAMIL Y Mar 07, 2000 105 [id number] JAY KRISHNA PATIENT ANTHEM BCBS FEDERAL PREFERRED PROVIDER ORGANIZAT ION (PPO) STAND JESSE SELF Mar 07, 2000 105 [id number] JAY KRISHNA PATIENT BCBS [place] F[place] PREFERRED PROVIDER ORGANIZAT ION (PPO) PSHB STAND JESSE FAMIL Y Feb 24, 2024 [id number] JAY KRISHNA PATIENT [place] PREFERRED PROVIDER ORGANIZAT ION (PPO) PSHB STAND JESSE FAMIL Y Feb 24, 2024 [id number] [phone] JAY KRISHNA PATIENT [place] F[place] DENTAL DENTAL INSURANCE STAND JESSE Mar 07, 2000 DENTAL [id number] JAY KRISHNA PATIENT [place] FEDERAL PREFERRED PROVIDER ORGANIZAT ION (PPO) PSHB STAND JESSE FAMIL Y Feb 24, 2024 [id number] [phone] JAY KRISHNA PATIENT [place] FEP BCBS PRESCRIPT ION [place] FEPRX PLAN Mar 07, 2000 [id number] JAY KRISHNA PATIENT [place] FEPRX PLAN PRESCRIPT ION CAR[place] FEPRX Feb 23, 2010 [id number] JAY KRISHNA PATIENT [place] FEPRX PLAN PRESCRIPT ION [place] FEPRX Mar 07, 2000 [id number] [phone] JAY KRISHNA PATIENT [place]-F EP BCBS PRESCRIPT ION BCBS FEP Feb 23, 2010 [id number] JAY KRISHNA PATIENT MEDICARE ([place]) MEDICARE () PART A May 25, 2011 PART A [id number] [facility] JAY KRISHNA PATIENT MEDICARE ([place]) MEDICARE () PART A May 25, 2011 PART A [id number] JAY KRISHNA PATIENT MEDICARE ([place]) MEDICARE () PART A May 25, 2011 PART A [id number] [facility] [phone] JAY KRISHNA PATIENT MEDICARE ([place]) MEDICARE () PART A May 25, 2011 PART A [id number] JAY KRISHNA PATIENT MEDICARE ([place]) MEDICARE () PART A May 25, 2011 PART A [id number] JAY KRISHNA PATIENT MEDICARE ([place]) MEDICARE () PART A May 25, 2011 PART A [id number] JAY KRISHNA PATIENT MEDICARE ([place]NR) MEDICARE (M) PART A May 25, 2011 PART A [id number] [facility] JAY KRISHNA PATIENT MEDICARE (WNR) MEDICARE (M) PART A May 25, 2011 PART A [id number] JAY KRISHNA PATIENT Selected Encounter This section includes the information on record at [place] for the Encounter. Date/Time Encounter Type Encounter Description Reason Provider Source Oct 01, 2023 11:00 AM OFFICE O/P EST MOD 30 MIN DERMATOLOGY ICD-10-CM L91.8 Other hypertrophic disorders of the skin PREET ZUNIGA [facility] Encounter Template Text not used by [place] Assessments - Encounter Diagnoses This section includes the primary and secondary diagnoses documented for the Encounter. Date/Time Primary/Secondary Diagnosis Diagnosis Name Provider Source Oct 29, 2023 12:30 PM PRIMARY Other hypertrophic disorders of the skin PREET ZUNIGA [facility] [place] [facility] Oct 29, 2023 12:30 PM SECONDARY Dermatitis, unspecified PREET ZUNIGA [facility] [place] [facility] Oct 29, 2023 12:30 PM SECONDARY Nevus, non-neoplastic EFRAINPREET TLIN [facility] [place] [facility] Oct 29, 2023 12:30 PM SECONDARY Other rosacea PREET ZUNIGA [facility] [place] [facility] Oct 29, 2023 12:30 PM SECONDARY Other seborrheic keratosis PREET ZUNIGA IN [place] [facility] [place] [facility] Plan of Treatment: Future Appointments (+ 6 months) and Future Tests (+/- 45 days) The Plan of Treatment section includes future care activities for the patient from all [place] treatmentfacilities. This section includes future appointments and future orders which are active, pending or scheduled. Future Appointments This section includes appointments that were scheduled to occur 6 months from the date of the Encounter, up to a maximum of 20 appointments. The data comes from all [place] treatment facilities. Appointment Date/Time Appointment Type Appointme nt Facility Name Dec 25, 2023 11:30 AM AMBULATORY - MEDICINE [place] [facility] [place] [facility] Feb 11, 2024 10:00 AM AMBULATORY - MEDICINE [place] [facility] [place] [facility] Mar 16, 2024 10:00 AM AMBULATORY - MEDICINE [place] [facility] [place] [facility] Mar 22, 2024 08:30 AM AMBULATORY - MEDICINE [place] [facility] [place] [facility] Social History: Smoking Status (Most current) and Tobacco Use (All prior to encounter date) This section includes the most current, and the historical, smoking and tobacco- related health factors from the [place] facility where the Encounter took place. Current Smoking Status This section includes the most current smoking, or tobacco-related health factor, from the [place] facility where the Encounter took place. Date/Time Current Smoking Status Comment Facil it July 24, 2023 10:00 AM VA-TOBACCO FORMER USER [place] [facility] [place] [facility] Tobacco Use History This section includes a history of the smoking, or tobacco-related health factors, that were collected on or before the date of the Encounter. The data comes from the [place] facility where the Encounter took place. Date/Time Smoking Status/Tobac co Use Comment Facility July 24, 2023 10:00 AM VA-TOBACCO QUIT 15 YRS OR MORE [facility] [place] [facility] July 14, 2022 03:30 PM VA-TOBACCO FORMER USER [facility] [place] [facility] July 14, 2022 03:30 PM VA-TOBACCO QUIT 15 YRS OR MORE [facility] [place] [facility] Aug 05, 2021 01:00 PM VA-TOBACCO FORMER USER [facility] [place] [facility] Aug 05, 2021 01:00 PM VA-TOBACCO QUIT 5 TO < 15 YRS [facility] [place] [facility] Sep 09, 2019 01:25 PM VA-TOBACCO FORMER USER [facility] [place] [facility] Sep 09, 2019 01:25 PM VA-TOBACCO QUIT 5 TO < 15 YRS [facility] [place] [facility] Dec 04, 2017 10:18 AM VA-TOBACCO FORMER USER [facility] [place] [facility] Dec 04, 2017 10:18 AM VA-TOBACCO QUIT 5 TO < 15 YRS [facility] [place] [facility] May 29, 2017 09:09 AM QUIT TOBACCO USE > 7 YEARS AGO [facility] [place] [facility] Apr 23, 2015 08:21 AM QUIT TOBACCO USE > 7 YEARS AGO [facility] [place] [facility] Apr 23, 2015 08:21 AM QUIT TOBACCO USE 1-7 YEARS AGO [facility] [place] [facility] Mar 06, 2011 11:06 AM QUIT TOBACCO USE 1-7 YEARS AGO [facility] [place] [facility] Apr 08, 2010 10:56 AM CURRENT SMOKER cigar once in a while [facility] [place] [facility] Apr 08, 2010 10:56 AM V1-PT DECLINES REF TO TOBACCO CESS PRGM [facility] [place] [facility] Apr 08, 2010 10:56 AM V1-PT DECLINES TOBACCO CESSATION MEDS [facility] [place] [facility] Apr 08, 2010 10:56 AM V1-PT READY TO QUIT TOBACCO USE [facility] [place] [facility] Feb 21, 2009 09:16 AM CURRENT SMOKER cigar [facility] [place] [facility] Feb 21, 2009 09:16 AM V1-PT DECLINES REF TO TOBACCO CESS PRGM [facility] [place] [facility] Feb 21, 2009 09:16 AM V1-PT DECLINES TOBACCO CESSATION [facility] [place] [facility] Feb 21, 2009 09:16 AM V1-PT THINKING ABOUT QUIT TOBACCO USE [facility] [place] [facility] Dec 16, 2007 09:15 AM QUIT TOBACCO USE 1-7 YEARS AGO [facility] [place] [facility] Apr 01, 2007 11:08 AM QUIT TOBACCO USE 1-7 YEARS AGO [facility] [place] [facility] Sep 28, 2006 08:52 AM QUIT TOBACCO USE IN PAST YEAR [facility] [place] [facility] Apr 21, 2006 10:31 AM QUIT TOBACCO USE IN PAST YEAR August 2005 [facility] [place] [facility] Dec 16, 2005 10:02 AM CURRENT SMOKER OCCASIONAL CIGAR [facility] [place] [facility] May 19, 2001 03:50 PM CURRENT SMOKER see below [facility] [place] [facility] Encounter Notes: All associated encounter [...] 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 Lost leg 2017. Rides [employer]. Active Outpatient Medications (including Supplies): Active Outpatient [...] openings, blanches Diagnosis/Plan: #Skin Tags, Irritated -The was educated regarding the benign [...] 2 weeks. RTC 6-12m, sooner PRN * educated to RTC basim [...] of active outpatient prescriptions dispensed from this [place] (local) and dispensed from another [place] or [facility] facility (remote) as well as inpatient [...] JLV. Allergies/ADRs (Tool #5) FACILITY ALLERGY/ADR -------- [facility] AMITRIPTYLINE [facility] ERYTHRITOL [facility] GABAPENTIN [facility] [place] [facility] ERYTHROMYCIN [facility] AMITRIPTYLINE [facility] GABAPENTIN Med Recon NoGlossary (Tool #1) INCLUDED IN THIS LIST: Alphabetical list of active outpatient prescriptions dispensed from this [place] (local) and dispensed from another [place] or [facility] facility (remote) as well as inpatient orders (local pending and active), local clinic medications, locally documented non-VA medications, and local prescriptions that have or been discontinued in the past 90 days. Non-VA Meds Last Documented On: Jan 23, 2023 NOTE The display of VA prescriptions dispensed from another [place] or [facility] facility (remote) is limited to active outpatient prescription entries matched to National Drug File at the originating site and may not include some items such as investigational drugs, compounds, etc. NOT INCLUDED IN THIS LIST: Medications self-entered by the patient into personal health records (i.e. [facility]) are NOT included in this list. Non-VA medications documented outside this [place], remote inpatient orders (regardless of status) and remote clinic medications are NOT included in this list. The patient and provider must always discuss medications the patient is taking, regardless of where the medication was dispensed or obtained. OUTPT CARBOXYMETHYLCELLULOSE NA 0.5% OPH SOLN (Status = Active) INSTILL 1 DROP INTO EACH EYE FOUR TIMES A DAY FOR DRY EYE Rx# [id number] Last Released: 04/25/23 Qty/Days Supply: Rx Expiration Date: 04/22/24 Refills Remainin Indication: FOR DRY EYE OUTPT CLOTRIMAZOLE 1% TOP SOLN (Status = Active) APPLY 1 DROP TOPICALLY ONCE DAILY FOR FUNGAL INFECTION APPLY TO NAILS WHEN DRY Rx# [id number] Last Released: 09/28/23 Qty/Days Supply: Rx Expiration Date: 09/23/24 Refills Remainin Indication: TOE NAIL FUNGUS OUTPT HYDROCHLOROTHIAZIDE 25MG TAB (Status = Discontinued) TAKE ONE TABLET BY MOUTH EVERY DAY TO PREVENT FLUID/CONTROL BLOOD PRESSURE Rx# [id number] Last Released: 04/02/23 Qty/Days Supply: Rx Expiration Date: 07/15/23 Refills Remainin OUTPT HYDROCHLOROTHIAZIDE 25MG TAB (Status = Active) TAKE ONE TABLET BY MOUTH EVERY DAY TO PREVENT FLUID/CONTROL BLOOD PRESSURE Rx# [id number] Last Released: 08/13/23 Qty/Days Supply: Rx Expiration Date: 08/11/24 Refills Remainin OUTPT KETOTIFEN 0.025% OPH SOLN (Status = ) INSTILL 1 DROP INTO EACH EYE TWICE DAILY (IF YOU WEAR CONTACT LENSES, WAIT 10 MINUTES BEFORE INSERTING LENSES) Rx# [id number] Last Released: 09/11/22 Qty/Days Supply: Rx Expiration Date: 09/11/23 Refills Remainin Indication: FOR ALLERGIC CONJUNCTIVITIS OUTPT METOPROLOL SUCCINATE 50MG SA TAB (Status = Active) TAKE THREE TABLETS BY MOUTH ONCE DAILY FOR BLOOD PRESSURE/HEART Rx# [id number] Last Released: 08/13/23 Qty/Days Supply: Rx Expiration Date: 08/11/24 Refills Remainin Indication: FOR HIGH BLOOD PRESSURE OUTPT METRONIDAZOLE 0.75% TOP GEL (Status = Active/Suspended) APPLY SMALL AMOUNT TOPICALLY TWICE DAILY FOR ACNE ROSACEA Rx# [id number] Last Released: 04/09/23 Qty/Days Supply: Rx Expiration Date: 04/02/24 Refills Remainin Indication: FOR ACNE ROSACEA OUTPT OMEPRAZOLE 20MG EC CAP (Status = Discontinued) TAKE ONE CAPSULE BY MOUTH EVERY MORNING 30 MINUTES BEFORE BREAKFAST FOR GASTROESOPHAGEAL REFLUX DISEASE Rx# [id number] Last Released: 06/15/23 Qty/Days Supply: Rx Expiration Date: 04/02/24 Refills Remainin Indication: FOR GASTROESOPHAGEAL REFLUX DISEASE OUTPT OMEPRAZOLE 20MG EC CAP (Status = Active/Suspended) TAKE ONE CAPSULE BY MOUTH TWICE DAILY BEFORE A MEAL FOR GASTROESOPHAGEAL REFLUX DISEASE Rx# [id number] Last Released: Qt Supply: Rx Expiration Date: 08/11/24 Refills Remainin Indication: FOR GASTROESOPHAGEAL REFLUX DISEASE Non-VA OXYCODONE HCL 5MG TAB NOT SA TAKE ONE TABLET BY MOUTH TWICE A WEEK NEEDED via community pcp OUTPT RIVAROXABAN 20MG TAB (Status = Discontinued) TAKE ONE TABLET BY MOUTH EVERY EVENING WITH FOOD Rx# [id number] Last Released: 08/12/23 Qty/Days Supply: Rx Expiration Date: 01/24/24 Refills Remainin OUTPT RIVAROXABAN 20MG TAB (Status = Active/Suspended) TAKE ONE TABLET BY MOUTH EVERY EVENING WITH FOOD Rx# [id number] Last Released: Supply: Rx Expiration Date: 08/11/24 Refills Remainin Non-VA SEMAGLUTIDE (OZEMPIC) PA-F INJ,SOLN INJECT SUBCUTANEOUSLY ONCE A WEEK OUTPT SILDENAFIL CITRATE 100MG TAB (Status = Discontinued) TAKE ONE TABLET BY MOUTH ONCE DAILY TAKE 1 HOUR PRIOR TO SEXUAL ACTIVITY Rx# [id number] Last Released: 08/12/23 Qty/Days Supply: 08/22 Rx Expiration Date: 04/02/24 Refills Remainin OUTPT SILDENAFIL CITRATE 100MG TAB (Status = Active) TAKE ONE TABLET BY MOUTH ONCE DAILY TAKE 1 HOUR PRIOR TO SEXUAL ACTIVITY Rx# [id number] Last Released: 09/03/23 Qty/Days Supply: Rx Expiration Date: 08/11/24 Refills Remainin Indication: FOR ERECTILE DYSFUNCTION OUTPT SIMVASTATIN 80MG TAB (Status = Active) TAKE ONE-HALF TABLET BY MOUTH EVERY EVENING FOR CHOLESTEROL Rx# [id number] Last Released: 06/15/23 Qty/Days Supply: Rx Expiration Date: 04/02/24 Refills Remainin OUTPT VALSARTAN 80MG TAB (Status = Active) TAKE ONE TABLET BY MOUTH ONCE DAILY Rx# [id number] Last Released: 01/26/23 Qty/Days Supply: Rx Expiration Date: 01/24/24 Refills Remainin SUPPLIES /daniela/ CLARK ZUNIGA DNP, EXPERIMENTAL AIRCRAFT MECHANIC-C NURSE PRACTITIONER Signed: 10/01/2023 12:24 CLARK ZUINGA CNTL TRN [facility]
--- OUTSIDE RECORDS SUMMARY | 2024-06-29 12:28 | XMS_ITS | Encounter Summary ---
Author Name [facility] [place] [facility] [place] Address [address] [place] [address] Care Team Providers Care Head Of Mathematics Name Role Phone JUAN GOMEZ Primary Care Provider Unavaileddie [facility] Insurance Providers: All historical and [...] JESSE FAMIL Y Mar 07, 2000 [id number] [phone] JAY KRISHNA PATIENT ANTHEM BCBS FEDERAL PREFERRED PROVIDER ORGANIZAT ION (PPO) STAND JESSE FAMIL Y Mar 07, 2000 105 [id number] JAY KRISHNA PATIENT ANTHEM BCBS FEDERAL PREFERRED PROVIDER ORGANIZAT ION (PPO) STAND JESSE SELF Mar 07, 2000 105 [id number] JAY KRISHNA PATIENT BCBS [place] FEP PREFERRED PROVIDER ORGANIZAT ION (PPO) PSHB STAND JESSE FAMIL Y Feb 24, 2024 [id number] JAY KRISHNA PATIENT [place] PREFERRED PROVIDER ORGANIZAT ION (PPO) PSHB STAND JESSE FAMIL Y Feb 24, 2024 [id number] JAY KRISHNA PATIENT [place] DENTAL DENTAL INSURANCE STAND JESSE Mar 07, 2000 DENTAL [id number] JAY KRISHNA PATIENT [place] FEDERAL PREFERRED PROVIDER ORGANIZAT ION (PPO) PSHB STAND JESSE FAMIL Y Feb 24, 2024 [id number] JAY KRISHNA PATIENT [place] FEP BCBS PRESCRIPT ION [place] FEPRX PLAN Mar 07, 2000 [id number] JAY KRISHNA PATIENT [place] FEPRX PLAN PRESCRIPT ION [place] FEPRX Feb 23, 2010 [id number] JAY KRISHNA PATIENT [place] FEPRX PLAN PRESCRIPT ION [place] FEPRX Mar 07, 2000 [id number] [phone] JAY KRISHNA PATIENT [place]-F EP BCBS PRESCRIPT ION BCBS FEP Feb 23, 2010 [id number] [phone] JAY KRISHNA PATIENT MEDICARE ([facility]) MEDICARE () PART A May 25, 2011 PART A [id number] [facility] JAY KRISHNA PATIENT MEDICARE ([facility]) MEDICARE () PART A May 25, 2011 [id number] [id number] JAY KRISHNA PATIENT MEDICARE ([facility]) MEDICARE () PART A May 25, 2011 PART A [id number] JAY KRISHNA PATIENT MEDICARE ([facility]) MEDICARE () PART A May 25, 2011 PART A [id number] [phone] JAY KRISHNA PATIENT MEDICARE ([facility]) MEDICARE () PART A May 25, 2011 PART A [id number] JAY KRISHNA PATIENT MEDICARE ([facility]) MEDICARE () PART A May 25, 2011 PART A [id number] JAY KRISHNA PATIENT MEDICARE (WNR) MEDICARE ([place]) PART A May 25, 2011 PART A [id number] [facility] JAY KRISHNA PATIENT MEDICARE (WNR) MEDICARE (M) PART A May 25, 2011 PART A [id number] [facility] JAY KRISHNA PATIENT Selected Encounter This section includes the information on record at [place] for the Encounter. Date/Time Encounter Type Encounter Description Reason Provider Source June 23, 2024 10:30 AM MTMS BY PHARM NELIA 15 MIN CLINICAL PHARMACY ICD-10-CM I10 Essential (primary) hypertension ALEJANDRA SNYDER Skyla Encounter Template Text not used by [place] Assessments - Encounter Diagnoses This section includes the primary and secondary diagnoses documented for the Encounter. Date/Time Primary/Secondary Diagnosis Diagnosis Name Provider Source June 23, 2024 11:26 AM PRIMARY Essential (primary) hypertension ALEJANDRA SNYDER [facility] [place] [facility] Plan of Treatment: Future Appointments (+ 6 months) and Future Tests (+/- 45 days) The Plan of Treatment section includes future care activities for the patient from [facility] [place] [facility] This section includes future appointments and future orders which are active, pending or scheduled. Future Appointments This section includes appointments that were scheduled to occur 6 months from the date of the Encounter, up to a maximum of 20 appointments. The data comes from all [place] treatment facilities. Appointment Date/Time Appointment Type Appointme nt Facility Name June 27, 2024 08:00 AM AMBULATORY - MEDICINE [place] [facility] [place] [facility] July 19, 2024 09:00 AM AMBULATORY - MEDICINE [place] [facility] [place] [facility] Aug 08, 2024 09:30 AM AMBULATORY - MEDICINE [place] [facility] [place] [facility] Aug 09, 2024 11:00 AM AMBULATORY - MEDICINE [place] [facility] [place] [facility] Sep 01, 2024 11:00 AM AMBULATORY - MEDICINE [place] [facility] [place] [facility] Oct 10, 2024 11:00 AM AMBULATORY - MEDICINE [place] [facility] [place] [facility] Oct 26, 2024 10:00 AM AMBULATORY - MEDICINE [facility] [place] [facility] Active, Pending, and Scheduled Orders This section includes a listing of several types of active, pending, and scheduled orders, including clinic medications orders, diagnostic test orders, procedure orders and consult orders; where the start date of the order is 45 days before the date of the Encounter or 45 days after the date of theEncounter. The data comes from all [place] treatment facilities. Test Date/Time Test Type Test Details Facility Name June 27, 2024 08:15 AM Laboratory - Chemistry Order LEVETIRACETAM (Keppra) BLOOD (RED-PLAIN) [facility] Vital Signs: All taken on the encounter date This section contains inpatient and outpatient Vital Signs collected on the date of the Encounter. Date/Time Temperature Pulse Blood Pressure Respiratory Rate SP02 Pain Height Weight Body Mass Index Source June 23, 2024 11:35 AM 97.4 [place] [facility] [place] [facility] June 23, 2024 10:42 AM 103 135/84 [place] [facility] [place] [facility] June 23, 2024 10:40 AM 86 145/104 [facility] Social History: Smoking Status (Most current) and Tobacco Use (All prior to encounter date) This section includes the most current, and the historical, smoking and tobacco- related health factors from the [place] facility where the Encounter took place. Current Smoking Status This section includes the most current smoking, or tobacco-related health factor, from the [place] facility where the Encounter took place. Date/Time Current Smoking Status Comment [facility] July 24, 2023 10:00 AM VA-TOBACCO FOR[facility] USER [facility] Tobacco Use History This section includes a history of the smoking, or tobacco-related health factors, that were collected on or before the date of the Encounter. The data comes from the [place] facility where the Encounter took place. Date/Time Smoking Status/Tobac co Use Comment Facility July 24, 2023 10:00 AM VA-TOBACCO QUIT 15 YRS OR MORE [place] [facility] [place] [facility] July 14, 2022 03:30 PM VA-TOBACCO FORMER USER [place] [facility] [place] [facility] July 14, 2022 03:30 PM VA-TOBACCO QUIT 15 YRS OR MORE [place] [facility] [place] [facility] Aug 05, 2021 01:00 PM VA-TOBACCO FORMER USER [facility] [place] [facility] Aug 05, 2021 01:00 PM VA-TOBACCO QUIT 5 TO < 15 YRS [facility] [place] [facility] Sep 09, 2019 01:25 PM VA-TOBACCO FORMER USER [facility] [place] [facility] Sep 09, 2019 01:25 PM VA-TOBACCO QUIT 5 TO < 15 YRS [facility] [place] [facility] Dec 04, 2017 10:18 AM VA-TOBACCO FORMER USER [facility] [place] [facility] Dec 04, 2017 10:18 AM VA-TOBACCO QUIT 5 TO < 15 YRS [facility] [place] [facility] May 29, 2017 09:09 AM QUIT TOBACCO USE > 7 YEARS AGO [facility] [place] [facility] Apr 23, 2015 08:21 AM QUIT TOBACCO USE > 7 YEARS AGO [facility] [place] [facility] Apr 23, 2015 08:21 AM QUIT TOBACCO USE 1-7 YEARS AGO [facility] [place] [facility] Mar 06, 2011 11:06 AM QUIT TOBACCO USE 1-7 YEARS AGO [facility] [place] [facility] Apr 08, 2010 10:56 AM CURRENT SMOKER cigar once in a while [facility] [place] [facility] Apr 08, 2010 10:56 AM V1-PT DECLINES [facility]F [facility] [place] [facility] Apr 08, 2010 10:56 AM V1-PT DECLINES TOBACCO CESSATION MEDS [place] [facility] [place] [facility] Apr 08, 2010 10:56 AM V1-PT READY TO QUIT TOBACCO USE [facility] [place] [facility] Feb 21, 2009 09:16 AM CURRENT SMOKER cigar once in a while [facility] [place] [facility] Feb 21, 2009 09:16 AM V1-PT DECLINES REF TO TOBACCO CESS PRGM [facility] [place] [facility] Feb 21, 2009 09:16 AM V1-PT DECLINES TOBACCO CESSATION MEDS [facility] [place] [facility] Feb 21, 2009 09:16 AM V1-PT THINKING ABOUT QUIT TOBACCO USE [facility] [place] [facility] Dec 16, 2007 09:15 AM QUIT TOBACCO USE 1-7 YEARS AGO [facility] Apr 01, 2007 11:08 AM QUIT TOBACCO USE 1-7 YEARS AGO [facility] Sep 28, 2006 08:52 AM QUIT TOBACCO USE IN PAST YEAR [facility] Apr 21, 2006 10:31 AM QUIT TOBACCO USE IN PAST YEAR August 2005 [facility] Dec 16, 2005 10:02 AM CURRENT SMOKER OCCASIONAL CIGAR [facility] May 19, 2001 03:50 PM CURRENT SMOKER see below [facility] Encounter Notes: All associated encounter notes This section contains the clinical notes associated to the Encounter. Date/Time Encounter Note(s) Provider Source June 23, 2024 11:26 AM ADDENDUM: LOCAL TITLE: Addendum STANDARD TITLE: ADDENDUM DATE OF NOTE: JUNE 23, 2024@11:26:59 ENTRY DATE: JUNE 23, 2024@11:27 AUTHOR: ALEJANDRA SNYDER COSIGNER: URGENCY: STATUS: COMPLETED Transition back to provider from Clinical Pharmacist Practitioner clinic for HTN as BP is at goal. He will continue to monitor at home. Pt is aware and in agreement. Can refer in future if needed /juliane SNYDER PHARMD,[facility] PRACTITIONER Signed: 06/23/2024 11:28 Receipt Acknowledged By: 06/23/2024 11:52 /daniela/ Juan Gomez DNP, [place] STITCHER-BC, CNL Primary Care Nurse Practitioner --- Original Document --- 06/23/24 PHARMACY CLINIC NOTE: JAY KRISHNA, 64 yo WHITE MALE, presents for diqx-fx-hcxz follow up visit for htn management. Pt was last seen on 04/27/24 in which chlorthalidone 25 mg once daily , metoprolol ER 200 mg daily and valsartan 160 mg daily were continued. Today, pt presents with . Recently ~ 6 weeks ago had seizure, was hospitalized- cause of seizure is unknown? reports that pts potassium was normal when he arrived to hospital but then was hypokalemic. Chlorthalidone was stopped during hospital admission. He is trying to decrease and tito down off most of his medications. We review his med list compared to his wifes and update it accordingly. He reports home BP to be around 128/79, right arm is lower than left arm. Pt inquires if additional labs for cholesterol are warranted. Current htn medications: - metorpolol ER 200 mg daily - valsartan 160 mg Previous htn medications: - hctz - stopped by [facility] when hospitalized. 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 SBP DBP - 153 117 [...] (including Supplies): Active Outpatient Medications Status 1) CLOBETASOL PROPIONATE 0.05% CREAM APPLY A THIN LAYER ACTIVE NO TOPICALLY TWICE DAILY FOR ITCHING/RASH APPLY TO AFFECTED AREAS FOR 2 WEEKS, THEN NEEDED Indication: FOR SKIN INFLAMMATION 2) CLOTRIMAZOLE 1% TOP SOLN APPLY 1 DROP TOPICALLY ONCE DAILY ACTIVE NO FOR FUNGAL INFECTION APPLY TO NAILS WHEN DRY Indication: TOE NAIL FUNGUS 3) LEVETIRACETAM 500MG TAB TAKE ONE TABLET BY MOUTH TWICE DAILY ACTIVE Indication: FOR PARTIAL SEIZURES 4) METRONIDAZOLE 0.75% TOP GEL APPLY SMALL AMOUNT TOPICALLY ACTIVE TWICE DAILY Indication: FOR ACNE ROSACEA 5) MICONAZOLE NITRATE 2% TOP PWDR APPLY SMALL AMOUNT TOPICALLY ACTIVE -STOP TWICE DAILY NEEDED Indication: FOR FUNGAL INFECTION OF SKIN 6) MOISTURIZING ([id number])UNSCENT LOT APPLY LIBERAL AMOUNT ACTIVE TOPICALLY DIRECTED Indication: DRY SKIN 7) SILDENAFIL CITRATE 100MG TAB TAKE ONE TABLET BY MOUTH ONCE ACTIVE STP DAILY TAKE 1 HOUR PRIOR TO SEXUAL ACTIVITY Indication: FOR ERECTILE DYSFUNCTION 8) TERBINAFINE HCL 1% CREAM APPLY A THIN LAYER TOPICALLY TWICE ACTIVE STOP DAILY APPLY TO RIGHT LEG UP TO 1-4 WEEKS UNTIL RASH RESOLVES Indication: FOR RINGWORM OF THE BODY Inactive Outpatient Medications Status 1) CARBOXYMETHYLCELLULOSE NA 0.5% OPH SOLN INSTILL 1 DROP INTO STOP EACH EYE FOUR TIMES A DAY Indication: FOR DRY EYE 2) CHLORTHALIDONE 25MG TAB TAKE ONE TABLET BY MOUTH ONCE DAILY DISCONTINUED TO REMOVE FLUID/CONTROL BLOOD PRESSURE Indication: FOR HIGH BLOOD PRESSURE 3) HYDROCHLOROTHIAZIDE 25MG TAB TAKE ONE TABLET BY MOUTH EVERY DISCONTINUED DAY TO PREVENT FLUID/CONTROL BLOOD PRESSURE 4) LORAZEPAM 0.5MG TAB TAKE ONE TABLET BY MOUTH ONE TIME TAKE 30 MINUTES PRIOR TO MRI Indication: FOR ANXIETY 5) METOPROLOL SUCCINATE 50MG SA TAB TAKE THREE TABLETS BY MOUTH DISCONTINUED ONCE DAILY FOR BLOOD PRESSURE/HEART Indication: FOR HIGH BLOOD PRESSURE 6) METRONIDAZOLE 0.75% TOP GEL APPLY SMALL AMOUNT TOPICALLY DISCONTINUED TWICE DAILY Indication: FOR ACNE ROSACEA 7) OMEPRAZOLE 20MG EC CAP TAKE ONE CAPSULE BY MOUTH TWICE DAILY DISCONTINUED BEFORE A MEAL Indication: FOR GASTROESOPHAGEAL REFLUX DISEASE 8) OMEPRAZOLE 20MG EC CAP TAKE ONE CAPSULE BY MOUTH EVERY DISCONTINUED MORNING 30 MINUTES BEFORE BREAKFAST (EDIT) Indication: FOR GASTROESOPHAGEAL REFLUX DISEASE 9) PANTOPRAZOLE NA 40MG EC TAB TAKE ONE TABLET BY MOUTH TWICE DISCONTINUED DAILY BEFORE A MEAL Indication: FOR EXCESSIVE PRODUCTION OF STOMACH ACID 10) RIVAROXABAN 20MG TAB TAKE ONE TABLET BY MOUTH EVERY EVENING DISCONTINUED WITH FOOD 11) SILDENAFIL CITRATE 100MG TAB TAKE ONE TABLET BY MOUTH ONCE DISCONTINUED DAILY TAKE 1 HOUR PRIOR TO SEXUAL ACTIVITY (EDIT) 12) SIMVASTATIN 80MG TAB TAKE ONE-HALF TABLET BY MOUTH EVERY DISCONTINUED EVENING FOR CHOLESTEROL 13) VALSARTAN 160MG TAB TAKE ONE TABLET BY MOUTH ONCE DAILY DISCONTINUED Indication: FOR HIGH BLOOD PRESSURE Active Non-VA Medications Status 1) Non-VA ASCORBIC ACID 500MG TAB 500MG BY MOUTH ONCE DAILY ACTIVE STOP 2) Non-VA CLOPIDOGREL BISULFATE 75MG TAB 75MG BY MOUTH ONCE ACTIVE UNTIL 07/06 DAILY Indication: TO PREVENT BLOOD CLOTS 3) Non-VA FINASTERIDE 5MG TAB 5MG BY MOUTH ONCE DAILY ACTIVE X 4) Non-VA FLUOXETINE HCL 20MG CAP 20MG BY MOUTH ONCE DAILY ACTIVE X 5) Non-VA GABAPENTIN 300MG CAP 300MG BY MOUTH BEDTIME ACTIVE X 6) Non-VA METOPROLOL SUCCINATE 200MG SA TAB 200MG BY MOUTH ONCE ACTIVE X DAILY Indication: afibb 7) Non-VA OMEPRAZOLE 20MG EC CAP 20MG BY MOUTH TWICE DAILY ACTIVE X TAPER BEFORE A MEAL 8) Non-VA OXYCODONE HCL 5MG TAB NOT SA 5MG BY MOUTH EVERY ACTIVE TAPER 8 HOURS NEEDED 9) Non-VA SEMAGLUTIDE 2MG/0.75ML INJ PEN 3ML 2MG SUBCUTANEOUSLY ACTIVE ONCE A WEEK Indication: FOR TYPE 2 DIABETES MELLITUS 10) Non-VA SIMVASTATIN 80MG TAB 40MG BY MOUTH ONCE DAILY ACTIVE x 11) Non-VA TAMSULOSIN HCL 0.4MG CAP 0.4MG BY MOUTH ONCE DAILY ACTIVE X 12) Non-VA VALSARTAN 160MG TAB 160MG BY MOUTH ONCE DAILY ACTIVE X Inactive Non-VA Medications Status 1) Non-VA ASPIRIN 325MG EC TAB 325MG BY MOUTH ONCE DAILY DISCONTINUED 2) Non-VA FERROUS SULFATE 325MG TAB 325MG BY MOUTH ONCE DAILY DISCONTINUED Indication: TO SUPPLEMENT IRON 3) Non-VA LEVETIRACETAM 500MG TAB 500MG BY MOUTH TWICE DAILY DISCONTINUED 36 Total Medications Labs: CHEM 7 TREND LAB CUMULATIVE SELECTED Collection DT Spec GLUCOSE BUN CREATIN Sodium K+/Pot CL CO2 05/11/2024 12:06 SERUM 96 12 0.69 138 4.0 106 22 05/11/2024 12:06 SERUM 96 13 0.69 138 4.0 106 23 02/11/2024 07:51 SERUM 110 H 11 0.84 142 4.6 108 24 08/11/2023 08:54 SERUM 114 H 10 0.86 137 4.0 106 22 01/23/2023 07:40 SERUM 118 H 13 0.95 138 4.3 102 27 Collection DT Spec eGFR 02/14/2009 08:06 SERUM >60 05/08/2008 08:38 SERUM >60 02/01/2008 10:05 SERUM >60 09/28/2006 09:15 SERUM >60 LAB CUMULATIVE SELECTED 2 No selection items chosen for this component. CHEM 7 Results Collection DT Spec Sodium K+/Pot CL CO2 GLUCOSE BUN eGFR 05/11/2024 12:06 SERUM 138 4.0 106 22 96 12 05/11/2024 12:06 SERUM 138 4.0 106 23 96 13 02/11/2024 07:51 SERUM 142 4.6 108 24 110 H 11 08/11/2023 08:54 SERUM 137 4.0 106 22 114 H 10 01/23/2023 07:40 SERUM 138 4.3 102 27 118 H 13 07/25/2022 10:59 SERUM 15 eGFR CKD-EPI 202005/11/24 12:06 >90 SERUM LIVER PANEL TREND Collection DT Spec AST ALT T BILI ALK MERLIN T. PROT ALBUMIN 05/11/2024 12:06 SERUM 25 22 1.3 H 58 7.4 3.9 02/11/2024 07:51 SERUM 19 14 1.0 72 7.3 4.0 08/11/2023 08:54 SERUM 23 20 1.9 H 66 7.1 3.9 01/23/2023 07:40 SERUM 37 H 38 1.6 H 80 7.5 4.1 06/02/2022 07:57 SERUM 27 23 1.5 H 77 7.1 4.1 HEMOGLOBIN A1C TREND Collection DT Spec HGBA1c 05/11/2024 12:06 BLOOD 5.2 02/11/2024 07:51 BLOOD 5.3 08/11/2023 08:54 BLOOD 5.0 01/23/2023 07:40 BLOOD 5.5 06/02/2022 07:57 BLOOD 6.4 H LIPID PANEL TREND Collection DT Spec CHOL HDL CHO/HDL LDL-d LDL-c TRIG 05/11/2024 12:06 SERUM 110 30 L 3.7 63 84 02/11/2024 07:51 SERUM 128 34 L 3.8 78 81 08/11/2023 08:54 SERUM 112 35 L 3.2 52 127 01/23/2023 07:40 SERUM 187 30 L 6.2 111 228 H 06/02/2022 07:57 SERUM 130 27 L 4.8 69 171 H Vitals: Ht: 75 in [190.5 cm] (02/11/2024 09:45) Wt: 320 lb [145.15 kg] (05/11/2024 10:50) BMI: BMI: 40.1 BP: 137/87 (06/13/2024 14:04) HR: 95 (06/13/2024 14:04) ASSESSMENT: Goal BP = <130/80 mmHg In office BP readings 03/16/24: SBP DBP 155 105 145 102 156 113 Average 152 107 In office BP readings 04/28/24: SBP DBP 143 82 VA 153 103 Home cuff 147 96 Home cuff 143 89 VA Average 147 93 In office BP readings 06/23/24: SBP DBP 145 104 Left 135 84 Right -- Average 140 94 -Lipids:LDL john goal PLAN: Continue current regimen as pt reports home BP to be at goal. Previous BP measurements also have been at or close to goal. Updated med list and provided print out. Discussed no need to order labs for cholesterol as they were completed a few weeks ago and PCP will continue to monitor. Pt would like to f/u with PCP and if needed PCP can refer back to CPP in future. - Medication management: - CONTINUE - metorpolol ER 200 mg daily - CONTINUE - valsartan 160 mg - SMBP at least twice a week - Healthy dietary and lifestyle modifications encouraged - Labs: prn EDUCATION -A shared decision-making approach was used in the development of this plan, involving the [place], clinician, and any caregivers present. The [place] was provided the opportunity express questions or concerns, and the plan was adjusted as needed to address these concerns. -Reviewed with [place] any new medications, changes to the medication list, education, and plan from today's visit. Patient (and/or caregiver) verbalized understanding of the plan, including possible known risks and benefits, and had no additional questions. RTC: PRN Time Spent: 30 mins PBM PharmD Pharmacotherapy Rem V12: PHARMACIST INTERVENTIONS: HYPERTENSION Medication monitoring, no dosage change required, continue to monitor and assess Medication reconciliation (changes to active VA and non-VA medication lists to reconcile differences) Changes to medication lists made Discontinue or remove medication PBM PharmD Pharmacotherapy Rem V12: Refer or transition back to provider from Clinical Pharmacist Practitioner clinic /daniela/ ALEJANDRA SNYDER PHARMD,[facility] PRACTITIONER Signed: 06/23/2024 11:26 ALEJANDRA SNYDER [place] [facility] [place] [facility] June 23, 2024 10:23 AM PHARMACY OUTPATIENT NOTE: LOCAL TITLE: PHARMACY CLINIC NOTE STANDARD TITLE: PHARMACY OUTPATIENT NOTE DATE OF NOTE: JUNE 23, 2024@10:23 ENTRY DATE: JUNE 23, 2024@10:23:10 AUTHOR: ALEJANDRA SNYDER EXP COSIGNER: URGENCY: STATUS: COMPLETED PHARMACY CLINIC NOTE Has ADDENDA JAY KRISHNA, 64 yo WHITE MALE, presents for lhgw-ik-suao follow up visit for htn management. Pt was last seen on 04/27/24 in which chlorthalidone 25 mg once daily , metoprolol ER 200 mg daily and valsartan 160 mg daily were continued. Today, pt presents with . Recently ~ 6 weeks ago had seizure, was hospitalized- cause of seizure is unknown? reports that pts potassium was normal when he arrived to hospital but then was hypokalemic. Chlorthalidone was stopped during hospital admission. He is trying to decrease and tito down off most of his medications. We review his med list compared to his wifes and update it accordingly. He reports home BP to be around 128/79, right arm is lower than left arm. Pt inquires if additional labs for cholesterol are warranted. Current htn medications: - metorpolol ER 200 mg daily - valsartan 160 mg Previous htn medications: - hctz - stopped by [facility] when hospitalized. 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 SBP DBP - 153 117 [...] (including Supplies): Active Outpatient Medications Status 1) CLOBETASOL PROPIONATE 0.05% CREAM APPLY A THIN LAYER ACTIVE NO TOPICALLY TWICE DAILY FOR ITCHING/RASH APPLY TO AFFECTED AREAS FOR 2 WEEKS, THEN NEEDED Indication: FOR SKIN INFLAMMATION 2) CLOTRIMAZOLE 1% TOP SOLN APPLY 1 DROP TOPICALLY ONCE DAILY ACTIVE NO FOR FUNGAL INFECTION APPLY TO NAILS WHEN DRY Indication: TOE NAIL FUNGUS 3) LEVETIRACETAM 500MG TAB TAKE ONE TABLET BY MOUTH TWICE DAILY ACTIVE Indication: FOR PARTIAL SEIZURES 4) METRONIDAZOLE 0.75% TOP GEL APPLY SMALL AMOUNT TOPICALLY ACTIVE TWICE DAILY Indication: FOR ACNE ROSACEA 5) MICONAZOLE NITRATE 2% TOP PWDR APPLY SMALL AMOUNT TOPICALLY ACTIVE -STOP TWICE DAILY NEEDED Indication: FOR FUNGAL INFECTION OF SKIN 6) MOISTURIZING (EQV-[id number])UNSCENT LOT APPLY LIBERAL AMOUNT ACTIVE TOPICALLY DIRECTED Indication: DRY SKIN 7) SILDENAFIL CITRATE 100MG TAB TAKE ONE TABLET BY MOUTH ONCE ACTIVE STP DAILY TAKE 1 HOUR PRIOR TO SEXUAL ACTIVITY Indication: FOR ERECTILE DYSFUNCTION 8) TERBINAFINE HCL 1% CREAM APPLY A THIN LAYER TOPICALLY TWICE ACTIVE STOP DAILY APPLY TO RIGHT LEG UP TO 1-4 WEEKS UNTIL RASH RESOLVES Indication: FOR RINGWORM OF THE BODY Inactive Outpatient Medications Status 1) CARBOXYMETHYLCELLULOSE NA 0.5% OPH SOLN INSTILL 1 DROP INTO STOP EACH EYE FOUR TIMES A DAY Indication: FOR DRY EYE 2) CHLORTHALIDONE 25MG TAB TAKE ONE TABLET BY MOUTH ONCE DAILY DISCONTINUED TO REMOVE FLUID/CONTROL BLOOD PRESSURE Indication: FOR HIGH BLOOD PRESSURE 3) HYDROCHLOROTHIAZIDE 25MG TAB TAKE ONE TABLET BY MOUTH EVERY DISCONTINUED DAY TO PREVENT FLUID/CONTROL BLOOD PRESSURE 4) LORAZEPAM 0.5MG TAB TAKE ONE TABLET BY MOUTH ONE TIME TAKE 30 MINUTES PRIOR TO MRI Indication: FOR ANXIETY 5) METOPROLOL SUCCINATE 50MG SA TAB TAKE THREE TABLETS BY MOUTH DISCONTINUED ONCE DAILY FOR BLOOD PRESSURE/HEART Indication: FOR HIGH BLOOD PRESSURE 6) METRONIDAZOLE 0.75% TOP GEL APPLY SMALL AMOUNT TOPICALLY DISCONTINUED TWICE DAILY Indication: FOR ACNE ROSACEA 7) OMEPRAZOLE 20MG EC CAP TAKE ONE CAPSULE BY MOUTH TWICE DAILY DISCONTINUED BEFORE A MEAL Indication: FOR GASTROESOPHAGEAL REFLUX DISEASE 8) OMEPRAZOLE 20MG EC CAP TAKE ONE CAPSULE BY MOUTH EVERY DISCONTINUED MORNING 30 MINUTES BEFORE BREAKFAST (EDIT) Indication: FOR GASTROESOPHAGEAL REFLUX DISEASE 9) PANTOPRAZOLE NA 40MG EC TAB TAKE ONE TABLET BY MOUTH TWICE DISCONTINUED DAILY BEFORE A MEAL Indication: FOR EXCESSIVE PRODUCTION OF STOMACH ACID 10) RIVAROXABAN 20MG TAB TAKE ONE TABLET BY MOUTH EVERY EVENING DISCONTINUED WITH FOOD 11) SILDENAFIL CITRATE 100MG TAB TAKE ONE TABLET BY MOUTH ONCE DISCONTINUED DAILY TAKE 1 HOUR PRIOR TO SEXUAL ACTIVITY (EDIT) 12) SIMVASTATIN 80MG TAB TAKE ONE-HALF TABLET BY MOUTH EVERY DISCONTINUED EVENING FOR CHOLESTEROL 13) VALSARTAN 160MG TAB TAKE ONE TABLET BY MOUTH ONCE DAILY DISCONTINUED Indication: FOR HIGH BLOOD PRESSURE Active Non-VA Medications Status 1) Non-VA ASCORBIC ACID 500MG TAB 500MG BY MOUTH ONCE DAILY ACTIVE STOP 2) Non-VA CLOPIDOGREL BISULFATE 75MG TAB 75MG BY MOUTH ONCE ACTIVE UNTIL 07/06 DAILY Indication: TO PREVENT BLOOD CLOTS 3) Non-VA FINASTERIDE 5MG TAB 5MG BY MOUTH ONCE DAILY ACTIVE X 4) Non-VA FLUOXETINE HCL 20MG CAP 20MG BY MOUTH ONCE DAILY ACTIVE X 5) Non-VA GABAPENTIN 300MG CAP 300MG BY MOUTH BEDTIME ACTIVE X 6) Non-VA METOPROLOL SUCCINATE 200MG SA TAB 200MG BY MOUTH ONCE ACTIVE X DAILY Indication: afibb 7) Non-VA OMEPRAZOLE 20MG EC CAP 20MG BY MOUTH TWICE DAILY ACTIVE X TAPER BEFORE A MEAL 8) Non-VA OXYCODONE HCL 5MG TAB NOT SA 5MG BY MOUTH EVERY ACTIVE TAPER 8 HOURS NEEDED 9) Non-VA SEMAGLUTIDE 2MG/0.75ML INJ PEN 3ML 2MG SUBCUTANEOUSLY ACTIVE ONCE A WEEK Indication: FOR TYPE 2 DIABETES MELLITUS 10) Non-VA SIMVASTATIN 80MG TAB 40MG BY MOUTH ONCE DAILY ACTIVE x 11) Non-VA TAMSULOSIN HCL 0.4MG CAP 0.4MG BY MOUTH ONCE DAILY ACTIVE X 12) Non-VA VALSARTAN 160MG TAB 160MG BY MOUTH ONCE DAILY ACTIVE X Inactive Non-VA Medications Status 1) Non-VA ASPIRIN 325MG EC TAB 325MG BY MOUTH ONCE DAILY DISCONTINUED 2) Non-VA FERROUS SULFATE 325MG TAB 325MG BY MOUTH ONCE DAILY DISCONTINUED Indication: TO SUPPLEMENT IRON 3) Non-VA LEVETIRACETAM 500MG TAB 500MG BY MOUTH TWICE DAILY DISCONTINUED 36 Total Medications Labs: CHEM 7 TREND LAB CUMULATIVE SELECTED Collection DT Spec GLUCOSE BUN CREATIN Sodium K+/Pot CL CO2 05/11/2024 12:06 SERUM 96 12 0.69 138 4.0 106 22 05/11/2024 12:06 SERUM 96 13 0.69 138 4.0 106 23 02/11/2024 07:51 SERUM 110 H 11 0.84 142 4.6 108 24 08/11/2023 08:54 SERUM 114 H 10 0.86 137 4.0 106 22 01/23/2023 07:40 SERUM 118 H 13 0.95 138 4.3 102 27 Collection DT Spec eGFR 02/14/2009 08:06 SERUM >60 05/08/2008 08:38 SERUM >60 02/01/2008 10:05 SERUM >60 09/28/2006 09:15 SERUM >60 LAB CUMULATIVE SELECTED 2 No selection items chosen for this component. CHEM 7 Results Collection DT Spec Sodium K+/Pot CL CO2 GLUCOSE BUN eGFR 05/11/2024 12:06 SERUM 138 4.0 106 22 96 12 05/11/2024 12:06 SERUM 138 4.0 106 23 96 13 02/11/2024 07:51 SERUM 142 4.6 108 24 110 H 11 08/11/2023 08:54 SERUM 137 4.0 106 22 114 H 10 01/23/2023 07:40 SERUM 138 4.3 102 27 118 H 13 07/25/2022 10:59 SERUM 15 eGFR CKD-EPI 202005/11/24 12:06 >90 SERUM LIVER PANEL TREND Collection DT Spec AST ALT T BILI ALK MERLIN T. PROT ALBUMIN 05/11/2024 12:06 SERUM 25 22 1.3 H 58 7.4 3.9 02/11/2024 07:51 SERUM 19 14 1.0 72 7.3 4.0 08/11/2023 08:54 SERUM 23 20 1.9 H 66 7.1 3.9 01/23/2023 07:40 SERUM 37 H 38 1.6 H 80 7.5 4.1 06/02/2022 07:57 SERUM 27 23 1.5 H 77 7.1 4.1 HEMOGLOBIN A1C TREND Collection DT Spec HGBA1c 05/11/2024 12:06 BLOOD 5.2 02/11/2024 07:51 BLOOD 5.3 08/11/2023 08:54 BLOOD 5.0 01/23/2023 07:40 BLOOD 5.5 06/02/2022 07:57 BLOOD 6.4 H LIPID PANEL TREND Collection DT Spec CHOL HDL CHO/HDL LDL-d LDL-c TRIG 05/11/2024 12:06 SERUM 110 30 L 3.7 63 84 02/11/2024 07:51 SERUM 128 34 L 3.8 78 81 08/11/2023 08:54 SERUM 112 35 L 3.2 52 127 01/23/2023 07:40 SERUM 187 30 L 6.2 111 228 H 06/02/2022 07:57 SERUM 130 27 L 4.8 69 171 H Vitals: Ht: 75 in [190.5 cm] (02/11/2024 09:45) Wt: 320 lb [145.15 kg] (05/11/2024 10:50) BMI: BMI: 40.1 BP: 137/87 (06/13/2024 14:04) HR: 95 (06/13/2024 14:04) ASSESSMENT: Goal BP = <130/80 mmHg In office BP readings 03/16/24: SBP DBP 155 105 145 102 156 113 Average 152 107 In office BP readings 04/28/24: SBP DBP 143 82 VA 153 103 Home cuff 147 96 Home cuff 143 89 VA Average 147 93 In office BP readings 06/23/24: SBP DBP 145 104 Left 135 84 Right -- Average 140 94 -Lipids:LDL john goal PLAN: Continue current regimen as pt reports home BP to be at goal. Previous BP measurements also have been at or close to goal. Updated med list and provided print out. Discussed no need to order labs for cholesterol as they were completed a few weeks ago and PCP will continue to monitor. Pt would like to f/u with PCP and if needed PCP can refer back to [facility] in future. - Medication management: - CONTINUE - metorpolol ER 200 mg daily - CONTINUE - valsartan 160 mg - SMBP at least twice a week - Healthy dietary and lifestyle modifications encouraged - Labs: prn EDUCATION -A shared decision-making approach was used in the development of this plan, involving the , clinician, and any caregivers present. The [place] was provided the opportunity express questions or concerns, and the plan was adjusted as needed to address these concerns. -Reviewed with [place] any new medications, changes to the medication list, education, and plan from today's visit. Patient (and/or caregiver) verbalized understanding of the plan, including possible known risks and benefits, and had no additional questions. RTC: PRN Time Spent: 30 mins PBM PharmD Pharmacotherapy Rem V12: PHARMACIST INTERVENTIONS: HYPERTENSION Medication monitoring, no dosage change required, continue to monitor and assess Medication reconciliation (changes to active VA and non-VA medication lists to reconcile differences) Changes to medication lists made Discontinue or remove medication PBM PharmD Pharmacotherapy Rem V12: Refer or transition back to provider from [facility] /juliane SNYDER PHARMD, BCPS CLINICAL PHARMACY PRACTITIONER Signed: 06/23/2024 11:26 06/23/2024 ADDENDUM STATUS: COMPLETED Transition back to provider from [facility] for HTN as BP is at goal. He will continue to monitor at home. Pt is aware and in agreement. Can refer in future if needed /juliane SNYDER PHARMD, BCPS CLINICAL PHARMACY PRACTITIONER Signed: 06/23/2024 11:28 Receipt Acknowledged By: * AWAITING SIGNATURE * JUAN GOMEZ JODI A [facility]
--- OUTSIDE RECORDS SUMMARY | 2024-06-29 12:28 | XMS_ITS | Encounter Summary ---
Author Name [facility] [place] [facility] [place] Address [address] [place] [address] Care Team Providers Care Industry Consultant Name Role Phone JUAN GOMEZ Primary Care Provider Unavaileddie [facility] Insurance Providers: All historical and [...] JESSE FAMIL Y Mar 07, 2000 [id number] [phone] JAY KRISHNA PATIENT ANTHEM BCBS FEDERAL PREFERRED PROVIDER ORGANIZAT ION (PPO) STAND JESSE FAMIL Y Mar 07, 2000 105 [id number] JAY KRISHNA PATIENT ANTHEM BCBS FEDERAL PREFERRED PROVIDER ORGANIZAT ION (PPO) STAND JESSE SELF Mar 07, 2000 105 [id number] JAY KRISHNA PATIENT BCBS [place] FEP PREFERRED PROVIDER ORGANIZAT ION (PPO) PSHB STAND JESSE FAMIL Y Feb 24, 2024 [id number] JAY KRISHNA PATIENT [place] PREFERRED PROVIDER ORGANIZAT ION (PPO) PSHB STAND JESSE FAMIL Y Feb 24, 2024 33E [id number] JAY KRISHNA PATIENT [place] DENTAL DENTAL INSURANCE STAND JESSE Mar 07, 2000 DENTAL [id number] JAY KRISHNA PATIENT [place] OF [place] FEDERAL PREFERRED PROVIDER ORGANIZAT ION (PPO) PSHB STAND JESSE FAMIL Y Feb 24, 2024 33E [id number] JAY KRISHNA PATIENT [place] FEP BCBS PRESCRIPT ION CAREM ARK FEPRX PLAN Mar 07, 2000 [id number] JAY KRISHNA PATIENT [place] FEPRX PLAN PRESCRIPT ION CAREM ARK FEPRX Feb 23, 2010 [id number] JAY KRISHNA PATIENT [place] FEPRX PLAN PRESCRIPT ION CAREM ARK FEPRX Mar 07, 2000 [id number] [phone] JAY KRISHNA PATIENT [place]-F EP BCBS PRESCRIPT ION BCBS FEP Feb 23, 2010 [id number] JAY KRISHNA PATIENT MEDICARE ([place]) MEDICARE () PART A May 25, 2011 PART A [id number] [facility] [phone] JAY KRISHNA PATIENT MEDICARE ([place]) MEDICARE () PART A May 25, 2011 PART A [id number] [id number] JAY KRISHNA PATIENT MEDICARE ([place]) MEDICARE () PART A May 25, 2011 PART A [id number] JAY KRISHNA PATIENT MEDICARE ([place]) MEDICARE () PART A May 25, 2011 PART A [id number] [phone] JAY KRISHNA PATIENT MEDICARE ([place]) MEDICARE () PART A May 25, 2011 PART A [id number] [phone] JAY KRISHNA PATIENT MEDICARE ([place]) MEDICARE () PART A May 25, 2011 PART A [id number] JAY KRISHNA PATIENT MEDICARE ([place]) MEDICARE (M) PART A May 25, 2011 PART A [id number] [facility] JAY KRISHNA PATIENT MEDICARE ([place]NR) MEDICARE (M) PART A May 25, 2011 PART A [id number] [facility] JAY KRISHNA PATIENT Selected Encounter This section includes the information on record at [place] for the Encounter. Date/Time Encounter Type Encounter Description Reason Provider Source Apr 27, 2024 09:30 AM MTMS BY PHARM NELIA 15 MIN CLINICAL PHARMACY ICD-10-CM I10 Essential (primary) hypertension ALEJANDRA SNYDER Skyla Encounter Template Text not used by [place] Assessments - Encounter Diagnoses This section includes the primary and secondary diagnoses documented for the Encounter. Date/Time Primary/Secondary Diagnosis Diagnosis Name Provider Source Apr 28, 2024 08:59 AM PRIMARY Essential (primary) hypertension ALEJANDRA SNYDER [facility] [facility] [place] [facility] Plan of Treatment: Future Appointments (+ 6 months) and Future Tests (+/- 45 days) The Plan of Treatment section includes future care activities for the patient [facility] [place] [facility] This section includes future appointments and future orders which are active, pending or scheduled. Future Appointments This section includes appointments that were scheduled to occur 6 months from the date of the Encounter, up to a maximum of 20 appointments. The data comes from all [place] treatment facilities. Appointment Date/Time Appointment Type Appointme nt Facility Name Apr 28, 2024 09:30 AM AMBULATORY - MEDICINE [facility] [facility] [place] [facility] May 03, 2024 08:00 AM AMBULATORY - MEDICINE [facility] [place] [facility] May 11, 2024 11:00 AM AMBULATORY - MEDICINE [facility] [facility] [place] [facility] May 24, 2024 11:00 AM AMBULATORY - PSYCHIATRY [facility] [place] [facility] Jun 07, 2024 12:10 PM AMBULATORY - MEDICINE [facility] [facility] [place] [facility] Jun 13, 2024 02:00 PM AMBULATORY - MEDICINE [place] [facility] [place] [facility] June 23, 2024 10:30 AM AMBULATORY - MEDICINE [place] [place] [facility] June 23, 2024 11:30 AM [facility] [place] [facility] June 27, 2024 08:00 AM [facility] July 19, 2024 09:00 AM [facility] Aug 08, 2024 09:30 AM [facility] Aug 09, 2024 11:00 AM [facility] Sep 01, 2024 11:00 AM AMBULATORY - MEDICINE [facility] Oct 10, 2024 11:00 AM [facility] Oct 26, 2024 10:[address] [facility] Active, Pending, and Scheduled Orders This section includes a listing of several types of active, pending, and scheduled orders, including clinic medications orders, diagnostic test orders, procedure orders and consult orders; where the start date of the order is 45 days before the date of the Encounter or 45 days after the date of theEncounter. The data comes from all [place] treatment facilities. Test Date/Time Test Type Test Details Facility Name Apr 27, 2024 12:00 AM Laboratory - Chemi stry Order SURGICAL PATH ORDER SURG PATH SPEC. UNKNOWN SP [facility] Apr 27, 2024 03:38 PM Consult Order SURGERY/CW M OUTPT Cons Presales Senior Specialist's Choice [facility] Lab Results: +/- 30 days of the encounter This section includes the Chemistry and Hematology Lab Results on record with [place] for the patient. Radiology Reports and Pathology Reports are provided separately, in subsequent sections. Lab Results This section contains the Chemistry/Hematology Results that were resulted 30 days before or 30 daysafter the date of the Encounter. Date/Time Source Result Type Result - Unit Interpretation Reference Range Specimen Type Comment May 11, 2024 12:06 PM [facility] BASIC METABOLIC PANEL (non-fasting) SERUM Spe cimen Type: SERUM No comment entered. Ordering Provider: ALEJANDRA SNYDER Report Released Date/Time: Mar 16, 2024 10:45 AM Reporting Lab: [address] [address] Performing Lab: [facility] [address] [facility] [address] UREA NITROGEN 12 mg/dL 7-25 GLUCOSE 96 mg/dL 65-100 SODIUM 138 mmol/L 135-145 POTASSIUM 4.0 mmol/L 3.5-5.0 CHLORIDE 106 mmol/L 100-110 CO2 22 meq/L 20-30 CALCIUM 9.4 mg/dL 8.5-10.2 CREATININE, Serum 0.69 mg/dL 0.50-1.40 eGFR(CKD-EPI 2020) >90 mL/min >60 May 11, 2024 12:06 PM [facility] LEVETIRACETAM (Keppra) SERUM Specimen Type: S KENYATTA Comment: Brivaracetam (Briviact(R), Rikelta(R)) exhibits significant cross-reactivity in the Levetiracetam (Keppra(R), Spritam(R)) immunoassay. If Brivaracetam has been prescribed, order test code 34898 Levetiracetam by LCMSMS. Test [facility], [address] [place] [address] Caleb Mullins M.D., Ph.D., Director of Laboratories , [place] [id number] TEST PERFORMED AT: , Ordering Provider: JUAN GOMEZ Report Released Date/Time: May 11, 2024 11:48 AM Reporting Lab: [facility] [address] [facility] [address] Performing Lab: [facility] [address] [address] LEVETIRACETAM (Keppra) 8.3 ug/mL 6.0-46. 0 May 11, 2024 12:06 PM [facility] FOLATE (WROX) SERUM Specimen Type: SERUM No comment entered. Ordering Provider: JUAN GOMEZ Report Released Date/Time: May 11, 2024 11:48 AM Reporting Lab: [facility] [address] [facility] [address] Performing Lab: [facility] [address] [address] FOLATE (WROX) 11.1 ng/mL >5.2 May 11, 2024 12:06 PM [facility] LIPID PANEL, NON FASTING SERUM Specimen Type: SERUM No comment entered. Ordering Provider: JUAN GOMEZ Report Released Date/Time: May 11, 2024 11:48 AM Reporting Lab: [facility] [address] [facility] [address] Performing Lab: [facility] [address] [facility] [address] CHOLESTEROL 110 mg/dL TRIGLYCERIDE 84 mg/dL 0-150 LDL calculated 63 mg/dL 0-129 CHOL/HDL 3.7 HDL CHOLESTEROL 30 mg/dL L 40-60 May 11, 2024 12:06 PM [facility] VITAMIN B12 SERUM Specimen Type: SERUM No comment entered. Ordering Provider: JUAN GOMEZ Report Released Date/Time: May 11, 2024 11:48 AM Reporting Lab: [facility] [address] [facility] [address] Performing Lab: [address] [address] VITAMIN B12 714 pg/mL 200-900 May 11, 2024 12:06 PM [facility] LIVER FUNCTION SERUM Specimen Type: SERUM No comment entered. Ordering Provider: JUAN GOMEZ Report Released Date/Time: May 11, 2024 11:48 AM Reporting Lab: [facility] [address] [facility] [address] Performing Lab: [address] [address] PROTEIN,TOTAL 7.4 g/dL 6.0-8.3 ALBUMIN 3.9 g/dL 3.5-5.0 ALKALINE PHOSPHATASE 58 U/L 40-150 AST 25 U/L 5-34 ALT 22 U/L BILIRUBIN, TOTAL 1.3 mg/dL H 0.2-1.2 BILIRUBIN, DIRECT 0.5 mg/dL 0-0.5 May 11, 2024 12:06 PM [facility] BASIC METABOLIC PANEL (non-fasting) SERUM Spe cimen Type: SERUM No comment entered. Ordering Provider: JUAN GOMEZ Report Released Date/Time: May 11, 2024 11:48 AM Reporting Lab: [facility] [address] [facility] [address] Performing Lab: [address] [address] UREA NITROGEN 13 mg/dL 7-25 GLUCOSE 96 mg/dL 65-100 SODIUM 138 mmol/L 135-145 POTASSIUM 4.0 mmol/L 3.5-5.0 CHLORIDE 106 mmol/L 100-110 CO2 23 meq/L 20-30 CALCIUM 9.4 mg/dL 8.5-10.2 CREATININE, Serum 0.69 mg/dL 0.50-1.40 eGFR(CKD-EPI 2020) >90 mL/min >60 May 11, 2024 12:06 PM [facility] CBC BLOOD Specimen Type: BLOO D No comment entered. Ordering Provider: JUAN GOMEZ Report Released Date/Time: May 11, 2024 11:48 AM Reporting Lab: [facility] [address] [facility] [address] Performing Lab: [address] [address] WBC 8.04 10*3/uL 4.50-11.00 RBC 4.60 10*6/uL 4.23-5.66 HGB 13.9 g/dL 12.8-17 HCT 40.8 39.2-50.4 MCV 88.7 fL 82-99 MCHC 34.1 g/dL 30.8-35.1 PLT 295 10*3/uL 140-360 RDW-CV 17.1 H 12.0-16.0 MCH 30.2 pg 26.2-32.6 May 11, 2024 12:06 PM [facility] VITAMIN D (25-OH) SERUM Specimen Type: SERUM No comment entered. Ordering Provider: JUAN GOMEZ Report Released Date/Time: May 11, 2024 11:48 AM Reporting Lab: [facility] [address] [facility] [address] Performing Lab: [address] [address] VITAMIN D (25-OH) 25 ng/mL 20-50 May 11, 2024 12:06 PM [facility] MAGNESIUM SERUM Specimen Type: SERUM No comment entered. Ordering Provider: JUAN GOMEZ Report Released Date/Time: May 11, 2024 11:48 AM Reporting Lab: [address] [address] Performing Lab: [address] [address] MAGNESIUM 2.1 mg/dL 1.6-2.6 May 11, 2024 12:06 PM [facility] HEMOGLOBIN A1C PANEL BLOOD Specimen Type: BLO OD Comment: Values obtained from A1C measurements can vary. For atypical A1C assays, a reported value of 7.0 could actually be between 6.72 and 7.28 if measured by a reference method. A reported value of 9.0 could actually be between 8.73 and 9.27. Ref: http://www.ngsp.org/CAPdata.asp Ordering Provider: JUAN GOMEZ Report Released Date/Time: May 11, 2024 11:48 AM Reporting Lab: [address] [address] Performing Lab: [address] [address] HEMOGLOBIN A1C 5.2 4.0-5.6 May 11, 2024 12:06 PM [facility] TSH SERUM Specimen Type: SERUM No comment entered. Ordering Provider: JUAN GOMEZ Report Released Date/Time: May 11, 2024 11:48 AM Reporting Lab: [address] [address] Performing Lab: [facility] [place] [facility] [address] [facility] [address] TSH 1.52 u[IU]/mL 0.35-5.00 Vital Signs: All taken on the encounter date This section contains inpatient and outpatient Vital Signs collected on the date of the Encounter. Date/Time Temperature Pulse Blood Pressure Respiratory Rate SP02 Pain Height Weight Body Mass Index Source Apr 27, 2024 09:50 AM 90 143/89 [facility] [place] [facility] Apr 27, 2024 09:46 AM 88 143/82 [facility] [place] [facility] Social History: Smoking Status (Most current) and Tobacco Use (All prior to encounter date) This section includes the most current, and the historical, smoking and tobacco- related health factors from the [place] facility where the Encounter took place. Current Smoking Status This section includes the most current smoking, or tobacco-related health factor, from the [place] facility where the Encounter took place. Date/Time Current Smoking Status Comment [facility] it July 24, 2023 10:00 AM VA-TOBACCO FORMER USER [facility] [place] [facility] Tobacco Use History This section includes a history of the smoking, or tobacco-related health factors, that were collected on or before the date of the Encounter. The data comes from the [place] facility where the Encounter took place. Date/Time Smoking Status/Tobac co Use Comment Facility July 24, 2023 10:00 AM VA-TOBACCO QUIT 15 YRS OR MORE [facility] [place] [facility] July 14, 2022 03:30 PM VA-TOBACCO FORMER USER [facility] [place] [facility] July 14, 2022 03:30 PM VA-TOBACCO QUIT 15 YRS OR MORE [facility] [place] [facility] Aug 05, 2021 01:00 PM VA-TOBACCO FORMER USER [facility] [place] [facility] Aug 05, 2021 01:00 PM VA-TOBACCO QUIT 5 TO < 15 YRS [facility] [place] [facility] Sep 09, 2019 01:25 PM VA-TOBACCO FORMER USER [facility] [place] [facility] Sep 09, 2019 01:25 PM VA-TOBACCO QUIT 5 TO < 15 YRS [facility] [place] [facility] Dec 04, 2017 10:18 AM VA-TOBACCO FORMER USER [facility] [place] [facility] Dec 04, 2017 10:18 AM VA-TOBACCO QUIT 5 TO < 15 YRS [facility] [place] [facility] May 29, 2017 09:09 AM QUIT TOBACCO USE > 7 YEARS AGO [facility] [place] [facility] Apr 23, 2015 08:21 AM QUIT TOBACCO USE > 7 YEARS AGO [facility] [place] [facility] Apr 23, 2015 08:21 AM QUIT TOBACCO USE 1-7 YEARS AGO [facility] [place] [facility] Mar 06, 2011 11:06 AM QUIT TOBACCO USE 1-7 YEARS AGO [facility] [place] [facility] Apr 08, 2010 10:56 AM CURRENT SMOKER cigar once in a while [facility] [place] [facility] Apr 08, 2010 10:56 AM V1-PT DECLINES REF [facility] [place] [facility] Apr 08, 2010 10:56 AM V1-PT DECLINES TOBACCO CESSATION MEDS [facility] [place] [facility] Apr 08, 2010 10:56 AM V1-PT READY TO QUIT [facility] [place] [facility] Feb 21, 2009 09:16 AM CURRENT SMOKER cigar once in a while [facility] [place] [facility] Feb 21, 2009 09:16 AM V1-PT DECLINES [facility]F [facility] [place] [facility] Feb 21, 2009 09:16 AM V1-PT DECLINES TOBACCO CESSATION MEDS [facility] [place] [facility] Feb 21, 2009 09:16 AM V1-PT THINKING ABOUT QUIT TOBACCO USE [facility] [place] [facility] Dec 16, 2007 09:15 AM QUIT TOBACCO USE 1-7 YEARS AGO [facility] [place] [facility] Apr 01, 2007 11:08 AM QUIT TOBACCO USE 1-7 YEARS AGO [facility] [place] [facility] Sep 28, 2006 08:52 AM QUIT TOBACCO USE IN PAST YEAR [facility] [place] [facility] Apr 21, 2006 10:31 AM QUIT TOBACCO USE IN PAST YEAR August 2005 [facility] Dec 16, 2005 10:02 AM CURRENT SMOKER OCCASIONAL CIGAR [facility] May 19, 2001 03:50 PM CURRENT SMOKER see below [facility] Pathology Reports: +/- 30 days of [...] the Encounter. The data comes from all [facility] facilities. Date/Time Pathology Report Provider Source May 02, 2024 10:07 AM LR SURGICAL PATHOLOGY REPORT: LOCAL TITLE: LR SURGICAL PATHOLOGY REPORT STANDARD TITLE: PATHOLOGY REPORT DATE OF NOTE: MAY 02, 2024@10:07:13 ENTRY DATE: MAY 02, 2024@10:07:13 AUTHOR: RADHA MARTINEZ MD EXP COSIGNER: URGENCY: STATUS: COMPLETED $APHDR Reporting Lab: [facility] [CLIA# [id number]] [address] [place] [address] - - - - - - - [...] (Received Apr 28, 2024): A:LEFT UPPER BACK SKIN([id number]) B:RIGHT UPPER BACK SKIN([id number]) - - - - - - - [...] - - - PATHOLOGY REPORT Accession No. [facility] 25 1510 - - - - - - - - - - - - - - - - - - - - - - - - - - - - - - - - - - - - - - - - GROSS DESCRIPTION: The specimen is recieved from [facility], [facility] 9350;A;1;Luis KRISHNA. Received in formalin labeled with the [...] Laboratory: Surgical Pathology Report Performed By: [facility] [CLIA# [id number]] [address] [place] [address] $FTR - - - - - - [...] - - JAY KRISHNA STANDARD FORM 515 ID:[id number] SEX:M :1960 AGE: 64 LOC:*[facility] PCP: /Charline Mg MD Board Certified Dermatopathologist Signed: 05/02/2024 10:07 RADHA MARTINEZ MD [facility] May 02, 2024 10:04 AM LR SURGICAL PATHOLOGY REPORT: LOCAL TITLE: LR SURGICAL PATHOLOGY REPORT STANDARD TITLE: PATHOLOGY DIAGNOSTIC STUDY REPORT DATE OF NOTE: MAY 02, 2024@10:04:16 ENTRY DATE: MAY 02, 2024@10:04:16 AUTHOR: RADHA MARTINEZ MD EXP COSIGNER: URGENCY: STATUS: COMPLETED $APHDR Reporting Lab: [facility] [place] [facility] [CLIA# [id number]] [address] [place] [address] - - - - - - - [...] - - - [facility]OLOG[facility] - - - - - - - [...] - - - PATHOLOGY REPORT Accession No. [facility] - - - - - - - - - - - - - - - - - - - - - - - - - - - - - - - - - - - - - - - - Gross description: The specimen is recieved from [facility], [facility] 1510;A;1;KRISHNA,B A. Received in formalin labeled [...] cross section in cassette B2. GIA Pacheco ([facility]) 04/28/2024 A. Skin, left upper [...] for further evaluation and treatment. CPT codes 74381s8 /daniela/ RADHA MARTINEZ MD Board Certified Dermatopathologist Signed May 02, 2024@10:04 Performing Laboratory: Surgical Pathology Report Performed By: [facility] [facility] [place] [CLIA# [id number]] [address] [place] [address] $FTR - - - - - - [...] - - JAY KRISHNA STANDARD FORM 515 ID:[id number] SEX:M :1960 AGE: 64 LOC:[facility] DERMATOLOGY [place] INSTRUCTIONAL ASSISTANT 1 PM PCP: Juan Gomez NP /daniela/ RADHA MARTINEZ MD Board Certified Dermatopathologist Signed: 05/02/2024 10:04 RADHA MARTINEZ MD [facility] Encounter Notes: All associated encounter notes This section contains the clinical notes associated to the Encounter. Date/Time Encounter Note(s) Provider Source Apr 28, 2024 08:59 AM ADDENDUM: LOCAL TITLE: Addendum STANDARD TITLE: ADDENDUM DATE OF NOTE: APR 28, 2024@08:59:17 ENTRY DATE: APR 28, 2024@08:59:17 AUTHOR: ALEJANDRA SNYDER EXP COSIGNER: URGENCY: STATUS: COMPLETED Will ask AMSA to please schedule patient for: [X] [facility] PHARM PACT 3 RTC order placed. Appointment Length: _30__ minutes. 06/29/24 @1030 Thank you! /juliane SNYDER PHARMD,BCPS CLINICAL PHARMACY PRACTITIONER Signed: 04/28/2024 08:59 Receipt Acknowledged By: 04/28/2024 09:43 /daniela/ ADIN OWEN [employer] DRESSMAKER --- Original Document --- 04/27/24 PHARMACY CLINIC NOTE: JAY KRISHNA, 64 yo WHITE MALE, presents for [id number] follow up visit for htn management. Pt [...] htn medications: - hctz - stopped by [facility] when hospitalized. 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 The [place] was provided the opportunity express questions or concerns, and the plan was adjusted as needed to address these concerns. -Reviewed with [place] any new medications, changes to the medication list, education, and plan from today's visit. Patient (and/or caregiver) verbalized understanding of the plan, including possible known risks and benefits, and had no additional questions. RTC: 06/29/24 @1030 Time Spent: 30 mins PBM PharmD Pharmacotherapy Rem V12: PHARMACIST INTERVENTIONS: HYPERTENSION Medication monitoring, no dosage change required, continue to monitor and assess /daniela/ ALEJANDRA SNYDER PHARMD,[facility] CLINICAL PHARMACY PRACTITIONER Signed: 04/28/2024 08:59 ALEJANDRA SNYDER [facility] Apr 27, 2024 08:38 AM PHARMACY OUTPATIENT NOTE: LOCAL TITLE: PHARMACY CLINIC NOTE STANDARD TITLE: PHARMACY OUTPATIENT NOTE DATE OF NOTE: APR 27, 2024@08:38 ENTRY DATE: APR 27, 2024@08:38:57 AUTHOR: ALEJANDRA SNYDER EXP COSIGNER: URGENCY: STATUS: COMPLETED PHARMACY CLINIC NOTE Has ADDENDA JAY KRISHNA, 64 yo WHITE MALE, presents for [id number]-[id number]-crbq follow up visit for htn management. Pt [...] htn medications: - hctz - stopped by [facility] when hospitalized. 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 The was provided the opportunity express questions or concerns, and the plan was adjusted as needed to address these concerns. -Reviewed with [place] any new medications, changes to the medication [...] AWAITING SIGNATURE * LEXII ROSEN JODI A [facility]
--- OUTSIDE RECORDS SUMMARY | 2024-06-29 12:28 | XMS_ITS ---
Author Name [facility] [place] [facility] [place] [facility] [place] [facility] [place] Address [address] [place] [address] Care Team Providers Care Scalp Treatment Operator Name Role Phone JUAN GOMEZ Primary [...] JESSE FAMIL Y Mar 07, 2000 [id number] [phone] JAY KRISHNA PATIENT ANTHEM BCBS FEDERAL PREFERRED PROVIDER ORGANIZAT ION (PPO) STAND JESSE FAMIL Y Mar 07, 2000 105 [id number] JAY KRISHNA PATIENT ANTHEM BCBS FEDERAL PREFERRED PROVIDER ORGANIZAT ION (PPO) STAND JESSE SELF Mar 07, 2000 105 [id number] JAY KRISHNA PATIENT BCBS [place] FEP PREFERRED PROVIDER ORGANIZAT ION (PPO) PSHB STAND JESSE FAMIL Y Feb 24, 2024 33E [id number] JAY KRISHNA PATIENT [place] PREFERRED PROVIDER ORGANIZAT ION (PPO) PSHB STAND JESSE FAMIL Y Feb 24, 2024 33E [id number] JAY KRISHNA PATIENT [place] DENTAL DENTAL INSURANCE STAND JESSE Mar 07, 2000 DENTAL [id number] JAY KRISHNA PATIENT [place] OF [place] FEDERAL PREFERRED PROVIDER ORGANIZAT ION (PPO) PSHB STAND JESSE FAMIL Y Feb 24, 2024 33E [id number] [phone] JAY KRISHNA PATIENT CAREMARK FEP BCBS PRESCRIPT ION CAREM ARK FEPRX PLAN Mar 07, 2000 [id number] JAY KRISHNA PATIENT [place] FEPRX PLAN PRESCRIPT ION CAREM ARK FEPRX Feb 23, 2010 [id number] JAY KRISHNA PATIENT [place] FEPRX PLAN PRESCRIPT ION CAREM ARK FEPRX Mar 07, 2000 [id number] [phone] JAY KRISHNA PATIENT [place]EMARK-F EP BCBS PRESCRIPT ION BCBS FEP Feb 23, 2010 [id number] [phone] JAY KRISHNA PATIENT MEDICARE ([facility]) MEDICARE () PART A May 25, 2011 PART A [id number] [facility] JAY KRISHNA PATIENT MEDICARE ([facility]) MEDICARE () PART A May 25, 2011 PART A [id number] [id number] [phone] [id number] JAY KRISHNA PATIENT MEDICARE ([facility]) MEDICARE () PART A May 25, 2011 PART A [id number] [phone] JAY KRISHNA PATIENT MEDICARE ([facility]) MEDICARE () PART A May 25, 2011 PART A [id number] [phone] JAY KRISHNA PATIENT MEDICARE ([facility]) MEDICARE () PART A May 25, 2011 PART A [id number] JAY KRISHNA PATIENT MEDICARE ([facility]) MEDICARE () PART A May 25, 2011 PART A [id number] JAY KRISHNA PATIENT MEDICARE (WNR) MEDICARE (M) PART A May 25, 2011 PART A [id number] [facility] JAY KRISHNA PATIENT MEDICARE (WNR) MEDICARE (M) PART A May 25, 2011 PART A [id number] [facility] JAY KRISHNA PATIENT Selected Encounter This section includes the information on record at [place] for the Encounter. Date/Time Encounter Type Encounter Description Reason Provider Source May 11, 2024 11:00 AM OFFICE O/P EST HI 40 MIN PRIMARY CARE/MEDICINE ICD-10-CM R56.9 Unspecified convulsions ANDREW GOMEZ AM [facility] Encounter Template Text not used by [place] Assessments - Encounter Diagnoses This section includes the primary and secondary diagnoses documented for the Encounter. Date/Time Primary/Secondary Diagnosis Diagnosis Name Provider Source Jun 09, 2024 11:22 AM PRIMARY Unspecified convulsions ANDREW GOMEZ AM [place] [facility] [place] [facility] Plan of Treatment: Future Appointments (+ 6 months) and Future Tests (+/- 45 days) The Plan of Treatment section includes future care activities for the patient from all [place] treatmentfacilities. This section includes future appointments and future orders which are active, pending or scheduled. Future Appointments This section includes appointments that were scheduled to occur 6 months from the date of the Encounter, up to a maximum of 20 appointments. The data comes from all [place] treatment facilities. Appointment Date/Time Appointment Type Appointme nt Facility Name May 24, 2024 11:00 AM AMBULATORY - PSYCHIATRY [place] [facility] [place] [facility] Jun 07, 2024 12:10 PM AMBULATORY - MEDICINE [place] [facility] [place] [facility] Jun 13, 2024 02:00 PM AMBULATORY - MEDICINE [place] [facility] [facility] June 23, 2024 10:30 AM AMBULATORY - MEDICINE [place] [facility] [facility] June 23, 2024 11:30 AM AMBULATORY - MEDICINE [place] [facility] [facility] June 27, 2024 08:00 AM AMBULATORY - MEDICINE [place] [facility] [place] [facility] July 19, 2024 09:00 AM AMBULATORY - MEDICINE [place] [facility] [facility] Aug 08, 2024 09:30 AM AMBULATORY - MEDICINE [place] [facility] Aug 09, 2024 11:00 AM AMBULATORY - MEDICINE [facility] NTRL TRN [facility] Sep 01, 2024 11:00 AM AMBULATORY - MEDICINE [facility] NTRL WSTRN [facility] Oct 10, 2024 11:00 AM AMBULATORY - MEDICINE [facility] NTRL TRN [facility] Oct 26, 2024 10:00 AM [facility] Active, Pending, and Scheduled Orders This section includes a listing of several types of active, pending, and scheduled orders, including clinic medications orders, diagnostic test orders, procedure orders and consult orders; where the start date of the order is 45 days before the date of the Encounter or 45 days after the date of theEncounter. The data comes from all [place] treatment facilities. Test Date/Time Test Type Test Details Facility Name Apr 27, 2024 12:00 AM Laboratory - Chemi stry Order SURGICAL PATH ORDER SURG PATH SPEC. UNKNOWN SP [facility] Apr 27, 2024 03:38 PM Consult Order SURGERY/CW M OUTPT Cons Custodial Officer's Choice [facility] Lab Results: +/- 30 days of the encounter This section includes the Chemistry and Hematology Lab Results on record with [place] for the patient. Radiology Reports and Pathology Reports are provided separately, in subsequent sections. Lab Results This section contains the Chemistry/Hematology Results that were resulted 30 days before or 30 daysafter the date of the Encounter. Date/Time Source Result Type Result - Unit Interpretation Reference Range Specimen Type Comment May 11, 2024 12:06 PM [facility] BASIC METABOLIC PANEL (non-fasting) SERUM Spe cimen Type: SERUM No comment entered. Ordering Provider: ALEJANDRA SNYDER Report Released Date/Time: Mar 16, 2024 10:45 AM Reporting Lab: [address] [address] Performing Lab: [address] [address] UREA NITROGEN 12 mg/dL 7-25 GLUCOSE 96 mg/dL 65-100 SODIUM 138 mmol/L 135-145 POTASSIUM 4.0 mmol/L 3.5-5.0 CHLORIDE 106 mmol/L 100-110 CO2 22 meq/L 20-30 CALCIUM 9.4 mg/dL 8.5-10.2 CREATININE, Serum 0.69 mg/dL 0.50-1.40 eGFR(CKD-EPI 2020) >90 mL/min >60 May 11, 2024 12:06 PM [facility] LEVETIRACETAM (Keppra) SERUM Specimen Type: S KENYATTA Comment: Brivaracetam (Briviact(R), Rikelta(R)) exhibits significant cross-reactivity in the Levetiracetam (Keppra(R), Spritam(R)) immunoassay. If Brivaracetam has been prescribed, order test code 30346 Levetiracetam by LCMSMS. Test Performed by [facility], [employer] [facility], [address] [place] [address] Caleb Mullins M.D., Ph.D., Director of Laboratories , [place] [id number] TEST PERFORMED AT: , Ordering Provider: JUAN GOMEZ Report Released Date/Time: May 11, 2024 11:48 AM Reporting Lab: [facility] [address] [facility] [address] Performing Lab: [facility] [address] [address] LEVETIRACETAM (Keppra) 8.3 ug/mL 6.0-46. 0 May 11, 2024 12:06 PM [facility] FOLATE (WROX) SERUM Specimen Type: SERUM No comment entered. Ordering Provider: JUAN GOMEZ Report Released Date/Time: May 11, 2024 11:48 AM Reporting Lab: [facility] [address] [facility] [address] Performing Lab: [facility] [address] [facility] [address] FOLATE (WROX) 11.1 ng/mL >5.2 May 11, 2024 12:06 PM [facility] LIPID PANEL, NON FASTING SERUM Specimen Type: SERUM No comment entered. Ordering Provider: JUAN GOMEZ Report Released Date/Time: May 11, 2024 11:48 AM Reporting Lab: [facility] [address] [facility] [address] Performing Lab: [address] [address] CHOLESTEROL 110 mg/dL TRIGLYCERIDE 84 mg/dL 0-150 LDL calculated 63 mg/dL 0-129 CHOL/HDL 3.7 HDL CHOLESTEROL 30 mg/dL L 40-60 May 11, 2024 12:06 PM [facility] VITAMIN B12 SERUM Specimen Type: SERUM No comment entered. Ordering Provider: JUAN GOMEZ Report Released Date/Time: May 11, 2024 11:48 AM Reporting Lab: [address] [address] Performing Lab: [address] [address] VITAMIN B12 714 pg/mL 200-900 May 11, 2024 12:06 PM [facility] LIVER FUNCTION SERUM Specimen Type: SERUM No comment entered. Ordering Provider: JUAN GOMEZ Report Released Date/Time: May 11, 2024 11:48 AM Reporting Lab: [address] [address] Performing Lab: [address] [address] PROTEIN,TOTAL 7.4 g/dL 6.0-8.3 ALBUMIN 3.9 g/dL 3.5-5.0 ALKALINE PHOSPHATASE 58 U/L 40-150 AST 25 U/L 5-34 ALT 22 U/L BILIRUBIN, TOTAL 1.3 mg/dL H 0.2-1.2 BILIRUBIN, DIRECT 0.5 mg/dL 0-0.5 May 11, 2024 12:06 PM [facility] BASIC METABOLIC PANEL (non-fasting) SERUM Spe cimen Type: SERUM No comment entered. Ordering Provider: JUAN GOMEZ Report Released Date/Time: May 11, 2024 11:48 AM Reporting Lab: [facility] [address] [facility] [address] Performing Lab: [address] [address] UREA NITROGEN 13 mg/dL 7-25 GLUCOSE 96 mg/dL 65-100 SODIUM 138 mmol/L 135-145 POTASSIUM 4.0 mmol/L 3.5-5.0 CHLORIDE 106 mmol/L 100-110 CO2 23 meq/L 20-30 CALCIUM 9.4 mg/dL 8.5-10.2 CREATININE, Serum 0.69 mg/dL 0.50-1.40 eGFR(CKD-EPI 2020) >90 mL/min >60 May 11, 2024 12:06 PM [facility] VITAMIN D (25-[place]) SERUM Specimen Type: SERUM No comment entered. Ordering Provider: JUAN GOMEZ Report Released Date/Time: May 11, 2024 11:48 AM Reporting Lab: [facility] [address] [facility] [address] Performing Lab: [address] [address] VITAMIN D (25-[place]) 25 ng/mL 20-50 May 11, 2024 12:06 PM [facility] CBC BLOOD Specimen Type: BLOOD No comment entered. Ordering Provider: JUAN GOMEZ Report Released Date/Time: May 11, 2024 11:48 AM Reporting Lab: [facility] [address] [facility] [address] Performing Lab: [address] [address] WBC 8.04 10*3/uL 4.50-11.00 RBC 4.60 10*6/uL 4.23-5.66 HGB 13.9 g/dL 12.8-17 HCT 40.8 39.2-50.4 MCV 88.7 fL 82-99 MCHC 34.1 g/dL 30.8-35.1 PLT 295 10*3/uL 140-360 RDW-CV 17.1 H 12.0-16.0 MCH 30.2 pg 26.2-32.6 May 11, 2024 12:06 PM [facility] MAGNESIUM SERUM Specimen Type: SERUM No comment entered. Ordering Provider: JUAN GOMEZ Report Released Date/Time: May 11, 2024 11:48 AM Reporting Lab: [address] [address] Performing Lab: [address] [address] MAGNESIUM 2.1 mg/dL 1.6-2.6 May 11, 2024 12:06 PM [facility] HEMOGLOBIN A1C PANEL BLOOD Specimen Type: [...] May 11, 2024 11:48 AM Reporting Lab: [address] [address] Performing Lab: [address] [address] HEMOGLOBIN A1C 5.2 4.0-5.6 May 11, 2024 12:06 PM [facility] TSH SERUM Specimen Type: SERUM No comment entered. Ordering Provider: JUAN GOMEZ Report Released Date/Time: May 11, 2024 11:48 AM Reporting Lab: [address] [address] Performing Lab: [address] [address] TSH 1.52 u[IU]/mL 0.35-5.00 Vital Signs: All taken on the encounter date This section contains inpatient and outpatient Vital Signs collected on the date of the Encounter. Date/Time Temperature Pulse Blood Pressure Respiratory Rate SP02 Pain Height Weight Body Mass Index Source May 11, 2024 10:50 AM 97.8 85 124/79 16 98 7 320 40 [place] [facility] [place] [facility] Social History: Smoking Status (Most current) and Tobacco Use (All prior to encounter date) This section includes the most current, and the historical, smoking and tobacco- related health factors from the [place] facility where the Encounter took place. Current Smoking Status This section includes the most current smoking, or tobacco-related health factor, from the [place] facility where the Encounter took place. Date/Time Current Smoking Status Comment Facil it July 24, 2023 10:00 AM VA-TOBACCO FORMER USER [place] [facility] [facility] Tobacco Use History This section includes a history of the smoking, or tobacco-related health factors, that were collected on or before the date of the Encounter. The data comes from the [place] facility where the Encounter took place. Date/Time Smoking Status/Tobac co Use Comment Facility July 24, 2023 10:00 AM VA-TOBACCO QUIT 15 YRS OR MORE [place] [facility] [place] [facility] July 14, 2022 03:30 PM VA-TOBACCO FORMER USER [place] [facility] [place] [facility] July 14, 2022 03:30 PM VA-TOBACCO QUIT 15 YRS OR MORE [place] [facility] [place] [facility] Aug 05, 2021 01:00 PM VA-TOBACCO FORMER USER [place] [facility] [place] [facility] Aug 05, 2021 01:00 PM VA-TOBACCO QUIT 5 TO < 15 YRS [facility] [place] [facility] Sep 09, 2019 01:25 PM VA-TOBACCO FORMER USER [facility] [place] [facility] Sep 09, 2019 01:25 PM VA-TOBACCO QUIT 5 TO < 15 YRS [facility] [place] [facility] Dec 04, 2017 10:18 AM VA-TOBACCO FORMER USER [facility] [place] [facility] Dec 04, 2017 10:18 AM VA-TOBACCO QUIT 5 TO < 15 YRS [facility] [place] [facility] May 29, 2017 09:09 AM QUIT TOBACCO USE > 7 YEARS AGO [facility] [place] [facility] Apr 23, 2015 08:21 AM QUIT TOBACCO USE > 7 YEARS AGO [facility] [place] [place] [facility] Apr 23, 2015 08:21 AM QUIT TOBACCO USE 1-7 YEARS AGO [facility] [place] [facility] Mar 06, 2011 11:06 AM QUIT TOBACCO USE 1-7 YEARS AGO [facility] [place] [facility] Apr 08, 2010 10:56 AM CURRENT SMOKER cigar once in a while [facility] [place] [facility] Apr 08, 2010 10:56 AM V1-PT DECLINES REF TO TOBACCO CESS PRGM [facility] Apr 08, 2010 10:56 AM V1-PT DECLINES TOBACCO CESSATION MEDS [facility] Apr 08, 2010 10:56 AM V1-PT READY TO QUIT TOBACCO USE [facility] [place] [facility] Feb 21, 2009 09:16 AM CURRENT SMOKER cigar once in a while [facility] Feb 21, 2009 09:16 AM V1-PT DECLINES REF TO TOBACCO CESS [facility] Feb 21, 2009 09:16 AM V1-PT DECLINES TOBACCO CESSATION MEDS [facility]TR[facility] Feb 21, 2009 09:16 AM V1-PT THINKING ABOUT QUIT TOBACCO USE [facility] [place] [facility] Dec 16, 2007 09:15 AM QUIT TOBACCO USE 1-7 YEARS AGO [facility] Apr 01, 2007 11:08 AM QUIT TOBACCO USE 1-7 YEARS AGO [facility] [place] [facility] Sep 28, 2006 08:52 AM QUIT TOBACCO USE IN PAST YEAR [facility] [place] [facility] Apr 21, 2006 10:31 AM QUIT TOBACCO USE IN PAST YEAR August 2005 [facility] Dec 16, 2005 10:02 AM CURRENT SMOKER OCCASIONAL CIGAR [facility] [place] [facility] May 19, 2001 03:50 PM CURRENT SMOKER see below [facility] Pathology Reports: +/- 30 days of [...] the Encounter. The data comes from all [place] treatment facilities. Date/Time Pathology Report Provider Source May 02, 2024 10:07 AM LR SURGICAL PATHOLOGY REPORT: LOCAL TITLE: LR SURGICAL PATHOLOGY REPORT STANDARD TITLE: PATHOLOGY REPORT DATE OF NOTE: MAY 02, 2024@10:07:13 ENTRY DATE: MAY 02, 2024@10:07:13 AUTHOR: RADHA HATCH MD EXP COSIGNER: URGENCY: STATUS: COMPLETED $APHDR Reporting Lab: [facility] [CLIA# [id number]] [address] [place] [id number] - - - - - - - [...] (Received Apr 28, 2024): A:LEFT UPPER BACK SKIN([id number]) B:RIGHT UPPER BACK SKIN([id number]) - - - - - - - [...] - - - PATHOLOGY REPORT Accession No. [facility] - - - - - - - - - - - - - - - - - - - - - - - - - - - - - - - - - - - - - - - - GROSS DESCRIPTION: The specimen is recieved from [facility], [facility] 3070;A;1;Luis KRISHNA A. Received in formalin labeled with [...] cassette B2. GIA Pacheco (ASCP) 04/28/2024 /juliane Hatch MD, Charline Board Certified Dermatopathologist Signed May 02, 2024@10:07 Performing Laboratory: Surgical Pathology Report Performed By: [facility] [CLIA# [id number]] [address] [place] [address] $FTR - - - - - - - - - - - - - - - - - - - - - - - - - - - - - - - - - - - - - - - - (End of report) RADHA HATCH MD, MD Date May 02, 2024 - - - - - - - - - - - - - - - - - - - - - - - - - - - - - - - - - - - - - - - - JAY KRISHNA STANDARD FORM 515 ID:[id number] SEX:M :1960 AGE: 64 [facility] PCP: /jluiane Hatch MD, CPjessy Board Certified Dermatopathologist Signed: 05/02/2024 10:07 RADHA HATCH MD [facility] May 02, 2024 10:04 AM LR SURGICAL PATHOLOGY REPORT: LOCAL TITLE: LR SURGICAL PATHOLOGY REPORT STANDARD TITLE: PATHOLOGY DIAGNOSTIC STUDY REPORT DATE OF NOTE: MAY 02, 2024@10:04:16 ENTRY DATE: MAY 02, 2024@10:04:16 AUTHOR: RADHA HATCH MD EXP COSIGNER: URGENCY: STATUS: COMPLETED $APHDR Reporting Lab: [facility] [CLIA# [id number]] [address] [place] [phone] - - - - - - - [...] - - PATHOLOGY REPORT Accession No. MAYRALEXX [id number] 82 - - - - - [...] - - - - BRIEF CLINICAL HISTORY: TAD SPECIMEN A- L UPPER BACK 2MM HYPERPIGMENTED [...] - - - PATHOLOGY REPORT Accession No. [facility] - - - - - - - - - - - - - - - - - - - - - - - - - - - - - - - - - - - - - - - - Gross description: The specimen is recieved from [facility], [facility] 1510;A;1;KRISHNA,Luis A. Received in formalin labeled with [...] cross section in cassette B2. GIA Pacheco ([facility]) 04/28/2024 A. Skin, left upper back: [...] for further evaluation and treatment. CPT codes 36022n4 /es/ RADHA HATCH MD Board Certified Dermatopathologist Signed May 02, 2024@10:04 Performing Laboratory: Surgical Pathology Report Performed By: [facility] [CLIA# [id number]] [address] [place] [phone] $FTR - - - - - - - - - - - - - - - - - - - - - - - - - - - - - - - - - - - - - - - - (End of report) RADHA HATCH MD, MD mm Date May 02, 2024 - - - - - - - - - - - - - - - - - - - - - - - - - - - - - - - - - - - - - - - - JAY KRISHNA STANDARD FORM 515 ID:[id number] SEX:M :1960 AGE: 64 LOC:[facility] DERMATOLOGY ELECTROMECHANICAL EQUIPMENT TESTER 1 PM PCP: Juan Gomez NP /daniela/ RADHA HATCH MD Board Certified Dermatopathologist Signed: 05/02/2024 10:04 RADHA HATCH MD [facility] Encounter Notes: All associated encounter notes This section contains the clinical notes associated to the Encounter. Date/Time Encounter Note(s) Provider Source May 12, 2024 08:30 AM ACCOUNTING OF DISCLOSURES NOTE: LOCAL TITLE: STATE PRESCRIPTION DRUG MONITORING PROGRAM STANDARD TITLE: ACCOUNTING OF DISCLOSURES NOTE DATE OF NOTE: MAY 12, 2024@08:30:19 ENTRY DATE: MAY 12, 2024@08:30:19 AUTHOR: JUAN GOMEZ EXP COSIGNER: URGENCY: STATUS: COMPLETED This PDMP query was submitted by Juan Gomez ELECTROMECHANICAL EQUIPMENT TESTER. The clinical justification for this PDMP query is to review controlled substances prescribed outside of the [place], and any additional information that may become available, as an important component of standard clinical care, and in accordance with [facility] policy. Patient information was shared with the PDMP [employer] [place]. No prescription(s) for controlled substances outside the [place] were found in the last 90 days. /daniela/ Juan Gomez DNP, PLANTING MATERIAL REMOVER-BC, CNL Primary Care Nurse Practitioner Signed: 05/12/2024 08:31 JUAN GOMEZ [facility] May 11, 2024 11:01 AM PREVENTIVE MEDICINE NURSING NOTE: LOCAL TITLE: CLINICAL REMINDERS/NURSING STANDARD TITLE: PREVENTIVE MEDICINE NURSING NOTE DATE OF NOTE: MAY 11, 2024@11:01 ENTRY DATE: MAY 11, 2024@11:01:22 AUTHOR: ANGELIKA ALCOCER EXP COSIGNER: URGENCY: STATUS: COMPLETED Follow Up Colonoscopy: Colonoscopy is due based on information available to this reminder. A colonoscopy has been completed elsewhere and we are waiting for results. per colonscopy completed october of last year at [facility] /daniela/ ANGELIKA ALCOCER LPN License Practical Nurse Signed: 05/11/2024 11:02 ANGELIKA ALCOCER [place] [facility] [place] [facility] May 11, 2024 11:00 AM PRIMARY CARE NURSE PRACTITIONER OUTPATIENT NOTE: LOCAL TITLE: NURSE PRACTITIONER OUTPATIENT NOTE STANDARD TITLE: PRIMARY CARE NURSE PRACTITIONER OUTPATIENT NOTE DATE OF NOTE: MAY 11, 2024@11:00 ENTRY DATE: MAY 12, 2024@08:28:43 AUTHOR: JUAN GOMEZ EXP COSIGNER: URGENCY: STATUS: COMPLETED Chief complaint: Patient is a 64 year old Warren. HPI: Pleasant male Warren here with his following a hospitalization: [facility] Admit: 05/04/24 D/C: 05/06/24 Hospital Course: Patient was admitted for seizure complicated by acute metabolic encephalopathy due to postictal state. Patient's significant alcohol use been unclear if this was withdrawal versus lowering of seizure threshold. Patient did not display any other signs of withdrawal. Phenobarbital was discontinued. MRI was unremarkable. Was seen by Neurology recommended starting Keppra 500mg twice daily. avoiding alcohol and avoiding driving. will follow up with Neurology as outpatient. For acute hypokalemia received replacement. Patient was also complaining of right shoulder pain. X- ray showed arthritis but no acute trauma. We will be referred for MRI of the shoulder outpatient to rule out rotator cuff tear. Course also complicated by urinary retention requiring 1 time straight cath. Will be discharged on Flomax and Proscar and should follow up with Urology. For chronic atrial fibrillation status post Watchman was continued on metoprolol. For hypertension was continue metoprolol and valsartan. For CARMEN continue CPAP. For obesity weight loss recommended and is on Ozempic at home. Patient is mental status returned to baseline and will be discharged home. Allergies: ERYTHROMYCIN The following VA and Non-VA meds were reconciled with patient. The patient was educated on the use of the medications including indication and side effects. Active and Recently Outpatient Medications (excluding Supplies): Active Outpatient Medications Status 1) CLOBETASOL PROPIONATE 0.05% CREAM APPLY A THIN LAYER ACTIVE TOPICALLY TWICE DAILY FOR ITCHING/RASH APPLY TO AFFECTED AREAS FOR 2 WEEKS, THEN NEEDED Indication: FOR SKIN INFLAMMATION 2) CLOTRIMAZOLE 1% TOP SOLN APPLY 1 DROP TOPICALLY ONCE DAILY ACTIVE FOR FUNGAL INFECTION APPLY TO NAILS WHEN DRY Indication: TOE NAIL FUNGUS 3) METRONIDAZOLE 0.75% TOP GEL APPLY SMALL AMOUNT TOPICALLY ACTIVE TWICE DAILY Indication: FOR ACNE ROSACEA 4) MICONAZOLE NITRATE 2% TOP PWDR APPLY SMALL AMOUNT TOPICALLY ACTIVE TWICE DAILY NEEDED Indication: FOR FUNGAL INFECTION OF SKIN 5) MOISTURIZING (EQV-[id number])UNSCENT LOT APPLY LIBERAL AMOUNT ACTIVE TOPICALLY DIRECTED Indication: DRY SKIN 6) SILDENAFIL CITRATE 100MG TAB TAKE ONE TABLET BY MOUTH ONCE ACTIVE DAILY TAKE 1 HOUR PRIOR TO SEXUAL ACTIVITY Indication: FOR ERECTILE DYSFUNCTION 7) TERBINAFINE HCL 1% CREAM APPLY A THIN LAYER TOPICALLY TWICE ACTIVE DAILY APPLY TO RIGHT LEG UP TO 1-4 WEEKS UNTIL RASH RESOLVES Indication: FOR RINGWORM OF THE BODY Pending Outpatient Medications Status 1) LEVETIRACETAM 500MG TAB TAKE ONE TABLET BY MOUTH TWICE DAILY PENDING Indication: FOR PARTIAL SEIZURES Inactive Outpatient Medications Status 1) CARBOXYMETHYLCELLULOSE NA 0.5% OPH SOLN INSTILL 1 DROP INTO EACH EYE FOUR TIMES A DAY Indication: FOR DRY EYE Active Non-VA Medications Status 1) Non-VA ASCORBIC ACID 500MG TAB 500MG BY MOUTH ONCE DAILY ACTIVE 2) Non-VA CLOPIDOGREL BISULFATE 75MG TAB 75MG BY MOUTH ONCE ACTIVE DAILY Indication: TO PREVENT BLOOD CLOTS 3) Non-VA FINASTERIDE 5MG TAB 5MG BY MOUTH ONCE DAILY ACTIVE 4) Non-VA FLUOXETINE HCL 20MG CAP 20MG BY MOUTH ONCE DAILY ACTIVE 5) Non-VA GABAPENTIN 300MG CAP 300MG BY MOUTH BEDTIME ACTIVE 6) Non-VA METOPROLOL SUCCINATE 200MG SA TAB 200MG BY MOUTH ONCE ACTIVE DAILY Indication: afibb 7) Non-VA OMEPRAZOLE 20MG EC CAP 20MG BY MOUTH TWICE DAILY ACTIVE BEFORE A MEAL 8) Non-VA OXYCODONE HCL 5MG TAB NOT SA 5MG BY MOUTH EVERY ACTIVE 8 HOURS NEEDED 9) Non-VA SEMAGLUTIDE 2MG/0.75ML INJ PEN 3ML 2MG SUBCUTANEOUSLY ACTIVE ONCE A WEEK Indication: FOR TYPE 2 DIABETES MELLITUS 10) Non-VA SIMVASTATIN 80MG TAB 40MG BY MOUTH ONCE DAILY ACTIVE 11) Non-VA TAMSULOSIN HCL 0.4MG CAP 0.4MG BY MOUTH ONCE DAILY ACTIVE 12) Non-VA VALSARTAN 160MG TAB 160MG BY MOUTH ONCE DAILY ACTIVE 21 Total Medications Review of Systems: Constitutional: (-)for Fevers, chills, weakness, nights sweats On examination: 97.8 F [36.6 C] (05/11/2024 10:50)124/79 (05/11/2024 10:50)85 (05/11/2024 10:50)16 (05/11/2024 10:50)7 (05/11/2024 10:50)BMI: 40.1320 lb [145.15 kg] (05/11/2024 10:50) Warren is alert and oriented X3 Cardiovasc: 2plus [...] List is the source for the followin. Seizure - now on keppra 500mg bid, he had mri but imaging was not adequate, will place order for MRI brain open, with contrast. Both he and his were not pleased with local neurology, they felt there was an assumption alcohol was the factor for seizure and both found this insulting. I will place consult for [place] neurology. He was reminded on driving restrictions. 2. Anxiety - related to recent medical events, will refer to [facility] Today I spent 45 minutes on some or all of the following: chart review, history, physical examination, treatment planning, education and counseling of the patient/family/urgent care, placing orders, communicating with other health care providers, completing health and wellness screenings (see below) and documentation in the electronic health record. Follow up visit in 4 mos. Medication Reconciliation: Outpatient: Has the patient been taking medications as documented in the EMLR? YES: The patient has been taking medications as documented in the EMLR. Essential Medication List for Review used to complete this medication reconciliation. INCLUDED IN THIS LIST: Alphabetical list of active outpatient prescriptions dispensed from this [place] (local) and dispensed from another [place] or [place] facility (remote) as well as [...] with a VA or non-VA provider. /daniela/ Juan Gomez DNP, PLANTING MATERIAL REMOVER-BC, CNL Primary Care Nurse Practitioner Signed: 05/12/2024 08:29 JUAN GOMEZ [facility]
--- OUTSIDE RECORDS SUMMARY | 2024-06-29 12:29 | XMS_ITS | Encounter Summary ---
Author Name [facility] [place] [facility] [place] Address [address] [place] [address] Care Team Providers Care Karate Black Belt Name Role Phone JUAN OBRIEN Primary Care Provider [facility] Insurance Providers: All historical and current [...] JESSE FAMIL Y Mar 07, 2000 [id number] [phone] JAY KRISHNA PATIENT ANTHEM BCBS FEDERAL PREFERRED PROVIDER ORGANIZAT ION (PPO) STAND JESSE FAMIL Y Mar 07, 2000 105 [id number] JAY KRISHNA PATIENT ANTHEM BCBS FEDERAL PREFERRED PROVIDER ORGANIZAT ION (PPO) STAND JESSE SELF Mar 07, 2000 105 [id number] JAY KRISHNA PATIENT BCBS [place] F[place] PREFERRED PROVIDER ORGANIZAT ION (PPO) PSHB STAND JESSE FAMIL Y Feb 24, 2024 [id number] JAY KRISHNA PATIENT [place] PREFERRED PROVIDER ORGANIZAT ION (PPO) PSHB STAND JESSE FAMIL Y Feb 24, 2024 33E [id number] [phone] JAY KRISHNA PATIENT [place] DENTAL DENTAL INSURANCE STAND JESSE Mar 07, 2000 DENTAL [id number] JAY KRISHNA PATIENT [place] FEDERAL PREFERRED PROVIDER ORGANIZAT ION (PPO) PSHB STAND JESSE FAMIL Y Feb 24, [id number] JAY KRISHNA PATIENT [place] FEP BCBS PRESCRIPT ION [place] FEPRX PLAN Mar 07, 2000 [id number] JAY KRISHNA PATIENT [place] FEPRX PLAN PRESCRIPT ION [place] FEPRX Feb 23, 2010 [id number] JAY KRISHNA PATIENT [place] FEPRX PLAN PRESCRIPT ION [place] FEPRX Mar 07, 2000 [id number] [phone] JAY KRISHNA PATIENT [place]-F EP BCBS PRESCRIPT ION BCBS FEP Feb 23, 2010 [id number] JAY KRISHNA PATIENT MEDICARE ([facility]) MEDICARE () PART A May 25, 2011 PART A [id number] [facility] JAY KRISHNA PATIENT MEDICARE ([facility]) MEDICARE () PART A May 25, 2011 [id number] [id number] JAY KRISHNA PATIENT MEDICARE ([facility]) MEDICARE () PART A May 25, 2011 PART A [id number] JAY KRISHNA PATIENT MEDICARE ([facility]) MEDICARE () PART A May 25, 2011 PART A [id number] JAY KRISHNA PATIENT MEDICARE ([facility]) MEDICARE () PART A May 25, 2011 PART A [id number] JAY KRISHNA PATIENT MEDICARE ([facility]) MEDICARE () PART A May 25, 2011 PART A [id number] JAY KRISHNA PATIENT MEDICARE (WNR) MEDICARE (M) PART A May 25, 2011 PART A [id number] [facility] JAY KRISHNA PATIENT MEDICARE (WNR) MEDICARE (M) PART A May 25, 2011 PART A [id number] [facility] JAY KRISHNA PATIENT Selected Encounter This section [...] PM PRIMARY Essential (primary) hypertension ALEJANDRA SNYDER [facility] [place] [facility] Plan of Treatment: Future Appointments (+ 6 months) and Future Tests (+/- 45 days) The Plan of Treatment section includes future care activities for the patient from all [place] treatmentfacilities. This section includes future appointments and [...] 22, 2024 08:30 AM AMBULATORY - [place]ICINE [facility] [place] [facility] Apr 27, 2024 09:30 AM AMBULATORY [place] [facility] [place] [facility] Apr 27, 2024 10:00 AM AM[facility]UL[facility]ORY [place] [facility] [facility] [place] [facility] Apr 28, 2024 09:30 AM AM[facility]ULATORY [place] [facility] [facility] [place] [facility] May 03, 2024 08:00 AM AM[facility]ORY [place] [facility] [place] [facility] May 11, 2024 11:00 AM AM[facility]UL[facility]ORY [place] [facility] [place] [facility] May 24, 2024 11:00 AM AMBULATORY - PSYCHIATRY [facility] [place] [facility] Jun 07, 2024 12:10 PM [facility] [place] [facility] [place] [facility] Jun 13, 2024 02:00 PM [facility] [place] [facility] June 23, 2024 10:30 AM AM[facility]ULATORY [facility]INE [facility] [place] [facility] June 23, 2024 11:30 AM [facility]ORY [place] [facility] [facility] [place] [facility] June 27, 2024 08:00 AM AM[facility]ORY [place] [facility] [facility] [place] [facility] July 19, 2024 09:00 AM AM[facility]ULATORY [facility]INE [facility] [place] [facility] Aug 08, 2024 09:30 AM AM[facility]ORY [place] [facility] [facility] [place] [facility] Aug 09, 2024 11:00 AM AM[facility]ULATORY [place] [facility] [facility] [place] [facility] Sep 01, 2024 11:00 AM AM[facility]UL[facility]ORY [place] [facility] [facility] [place] [facility] Active, Pending, and Scheduled Orders [...] SPEC. UNKNOWN SP [facility] [place] [facility] Apr 27, 2024 03:38 PM Consult Order SURGERY/CW M OUTPT Cons Rn Clinician's Choice [facility] [place] [facility] Vital Signs: All taken on the encounter date This section contains inpatient and outpatient Vital Signs collected on the date of the Encounter. Date/Time Temperature Pulse Blood Pressure Respiratory Rate SP02 Pain Height Weight Body Mass Index Source Mar 16, 2024 10:16 AM 75 156/113 [facility] [place] [facility] Mar 16, 2024 10:13 AM 114 145/102 [facility] [place] [facility] Mar 16, 2024 10:12 AM 84 155/105 [facility] [place] [facility] Social History: Smoking Status (Most [...] VA-TOBACCO FORMER USER [facility] [place] [facility] Tobacco Use History This section includes a history of the smoking, or tobacco-related health factors, that were collected on or before the date of the Encounter. The data comes from the [place] facility where the Encounter took place. Date/Time Smoking Status/Tobac co Use Comment Facility July 24, 2023 10:00 AM VA-TOBACCO QUIT 15 YRS OR MORE [facility] [place] [facility] July 14, 2022 03:30 PM VA-TOBACCO FORMER USER [facility] [place] [facility] July 14, 2022 03:30 PM VA-TOBACCO QUIT 15 YRS OR MORE [facility] [place] [facility] Aug 05, 2021 01:00 PM VA-TOBACCO FORMER USER [facility] [place] [facility] Aug 05, 2021 01:00 PM VA-TOBACCO QUIT 5 TO < 15 YRS [facility] [place] [facility] Sep 09, 2019 01:25 PM VA-TOBACCO FORMER USER [facility] [place] [facility] Sep 09, 2019 01:25 PM VA-TOBACCO QUIT 5 TO < 15 YRS [facility] [place] [facility] Dec 04, 2017 10:18 AM VA-TOBACCO FORMER USER [facility] [place] [facility] Dec 04, 2017 10:18 AM VA-TOBACCO QUIT 5 TO < 15 YRS [facility] [place] [facility] May 29, 2017 09:09 AM QUIT TOBACCO USE > 7 YEARS AGO [facility] [place] [facility] Apr 23, 2015 08:21 AM QUIT TOBACCO USE > 7 YEARS AGO [facility] [place] [facility] Apr 23, 2015 08:21 AM QUIT TOBACCO USE 1-7 YEARS AGO [facility] [place] [facility] Mar 06, 2011 11:06 AM QUIT TOBACCO USE 1-7 YEARS AGO [facility] [place] [facility] Apr 08, 2010 10:56 AM CURRENT SMOKER cigar once in a while [facility] Apr 08, 2010 10:56 AM V1-PT DECLINES REF TO TOBACCO CESS PRGM [facility] Apr 08, 2010 10:56 AM V1-PT DECLINES TOBACCO [facility]ESSATION [facility] Apr 08, 2010 10:56 AM V1-PT READY TO QUIT [facility] Feb 21, 2009 09:16 AM CURRENT SMOKER cigar once in a while [facility] Feb 21, 2009 09:16 AM V1-PT DECLINES REF TO TOBACCO CESS [facility] Feb 21, 2009 09:16 AM V1-PT DECLINES TOBACCO CESSATION [facility] Feb 21, 2009 09:16 AM V1-PT THINKING ABOUT QUIT TOBACCO [facility] Dec 16, 2007 09:15 AM QUIT TOBACCO USE 1-7 YEARS AGO [facility] Apr 01, 2007 11:08 AM QUIT TOBACCO USE 1-7 YEARS AGO [facility] Sep 28, 2006 08:52 AM QUIT TOBACCO USE [facility]ST [facility] Apr 21, 2006 10:31 AM QUIT TOBACCO USE IN PAST YEAR August 2005 [facility] Dec 16, 2005 10:02 AM CURRENT SMOKER OCCASIONAL CIGAR [facility] May 19, 2001 03:50 PM CURRENT SMOKER see below [facility] Encounter Notes: All associated encounter notes This section contains the clinical notes associated to the Encounter. Date/Time Encounter Note(s) Provider Source Mar 16, 2024 09:50 AM PHARMACY CONSULT: LOCAL TITLE: CONSULT REPORT/PHARMACY STANDARD TITLE: PHARMACY CONSULT DATE OF NOTE: MAR 16, 2024@09:50 ENTRY DATE: MAR 16, 2024@09:50:27 AUTHOR: ALEJANDRA SNYDER COSIGNER: URGENCY: STATUS: COMPLETED JAY KRISHNA, 64 yo WHITE MALE, presents for [id number] initial visit for htn management. Today, pt reports long personal hx of htn and fm hx of htn, lost a brother at 43 y/o from CAD - had DC in sleep. Current dx of afibb - taking metprolol for that as previous ablations were unsuccessful. He had a GI bleed postt endo/colonoscopy in 10/2023- at that time rivaroxaban was dc'ed and he had a watchman procedure since. He is followed in the community by . He receives many of his medications from [facility] and prescribed by community providers. He [...] htn medications: - hctz - [facility]. 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 The [place] was provided the opportunity express questions or [...] Add or renew medication /daniela/ ALEJANDRA SNYDER PHARMD,[facility]INICAL [facility]AC[facility] PRACTITIONER Signed: 03/16/2024 12:34 ALE[facility]ANDRA SNYDER [facility]
--- OUTSIDE RECORDS SUMMARY | 2024-06-29 12:29 | XMS_ITS ---
Author Name [facility] [place] [facility] [place] [facility] [place] [facility] [place] Address [address] [place] [address] Care Team Providers Care Human Resources Manager Name Role Phone JUAN GOMEZ [facility] Insurance Providers: All historical and [...] JESSE FAMIL Y Mar 07, 2000 [id number] [phone] JAY KRISHNA PATIENT ANTHEM BCBS FEDERAL PREFERRED PROVIDER ORGANIZAT ION (PPO) STAND JESSE FAMIL Y Mar 07, 2000 105 [id number] JAY KRISHNA PATIENT ANTHEM BCBS FEDERAL PREFERRED PROVIDER ORGANIZAT ION (PPO) STAND JESSE SELF Mar 07, 2000 105 [id number] JAY KRISHNA PATIENT BCBS [place] PREFERRED PROVIDER ORGANIZAT ION (PPO) PSHB STAND JESSE FAMIL Y Feb 24, 2024 [id number] JAY KRISHNA PATIENT [place] PREFERRED PROVIDER ORGANIZAT ION (PPO) PSHB STAND JESSE FAMIL Y Feb 24, 2024 [id number] JAY KRISHNA PATIENT [place] DENTAL DENTAL INSURANCE STAND JESSE Mar 07, 2000 DENTAL [id number] AJY KRISHNA PATIENT [place] FEDERAL PREFERRED PROVIDER ORGANIZAT ION (PPO) PSHB STAND JESSE FAMIL Y Feb 24, 2024 33E [id number] JAY KRISHNA PATIENT [place] FEP BCBS PRESCRIPT ION CAREM ARK FEPRX PLAN Mar 07, 2000 [id number] JAY KRISHNA PATIENT [place] FEPRX PLAN PRESCRIPT ION CAR[place] AR[place] FEPRX Feb 23, 2010 [id number] JAY KRISHNA PATIENT [place] FEPRX PLAN PRESCRIPT ION CAREM ARK FEPRX Mar 07, 2000 [id number] [phone] JAY KRISHNA PATIENT [place]-F EP BCBS PRESCRIPT ION BCBS FEP Feb 23, 2010 [id number] [phone] JAY KRISHNA PATIENT MEDICARE ([facility]) MEDICARE () PART A May 25, 2011 PART A [id number] [facility] [phone] JAY KRISHNA PATIENT MEDICARE ([facility]) MEDICARE () PART A May 25, 2011 PART A [id number] [id number] JAY KRISHNA PATIENT MEDICARE ([facility]) MEDICARE () PART A May 25, 2011 PART A [id number] [phone] JAY KRISHNA PATIENT MEDICARE ([facility]) MEDICARE () PART A May 25, 2011 PART A [id number] JAY KRISHNA PATIENT MEDICARE ([facility]) MEDICARE () PART A May 25, 2011 PART A [id number] [phone] JAY KRISNHA PATIENT MEDICARE ([facility]) MEDICARE () PART A May 25, 2011 PART A [id number] JAY KRISHNA PATIENT MEDICARE (WNR) MEDICARE (M) PART A May 25, 2011 PART A [id number] [facility] JAY KRISHNA PATIENT MEDICARE (WNR) MEDICARE (M) PART A May 25, 2011 PART A [id number] [facility] JAY KRISHNA PATIENT Selected Encounter This section includes the information on record at [place] for the Encounter. Date/Time Encounter Type Encounter Description Reason Provider Source May 03, 2024 08:00 AM OFFICE O/P EST MOD 30 MIN OPTOMETRY ICD-10-CM E11.9 Type 2 diabetes mellitus without complications MELVA LUNA Skyla Encounter Template Text not used by [place] Assessments - Encounter Diagnoses This section includes the primary and secondary diagnoses documented for the Encounter. Date/Time Primary/Secondary Diagnosis Diagnosis Name Provider Source May 21, 2024 07:06 AM PRIMARY Type 2 diabetes mellitus without complications MELVA LUNA [place] [facility] [place] [facility] May 21, 2024 07:06 AM SECONDARY Dry eye syndrome of bilateral lacrimal glands MELVA LUNA [place] [facility] [place] [facility] May 21, 2024 07:06 AM SECONDARY Endothelial corneal dystrophy, bilateral MELVA LUNA [place] [facility] [place] [facility] May 21, 2024 07:06 AM SECONDARY Presbyopia MELVA LUNA [place] [facility] [place] [facility] May 21, 2024 07:06 AM SECONDARY Presence of intraocular lens MELVA LUNA [place] [facility] [place] [facility] May 21, 2024 07:06 AM SECONDARY Unspecified retinal detachment with retinal break, right eye [facility] LU[place] [facility] Plan of Treatment: Future Appointments (+ [...] Appointment Type Appointme nt Facility Name May 11, 2024 11:00 AM AMBULATORY - MEDICINE [facility] [place] [facility] May 24, 2024 11:00 AM AMBULATORY [facility]IATRY [facility] [place] [facility] Jun 07, 2024 12:10 PM AMBULATORY - MEDICINE [facility] [place] [facility] Jun 13, 2024 02:00 PM AMBULATORY - MEDICINE [facility] [place] [place] [facility] June 23, 2024 10:30 AM AMBULATORY - MEDICINE [facility] [place] [place] [facility] June 23, 2024 11:30 AM AMBULATORY - MEDICINE [facility] [place] [facility] June 27, 2024 08:00 AM AMBULATORY - MEDICINE [facility] [place] [place] [facility] July 19, 2024 09:00 AM AMBULATORY - MEDICINE [facility] [place] [facility] Aug 08, 2024 09:30 AM AMBULATORY - MEDICINE [facility] [place] [facility] Aug 09, 2024 11:00 AM AMBULATORY - MEDICINE [facility] [place] [facility] Sep 01, 2024 11:00 AM AMBULATORY - MEDICINE [facility] [place] [place] [facility] Oct 10, 2024 11:00 AM AMBULATORY - MEDICINE [facility] [facility] Oct 26, 2024 10:00 AM AMBULATORY - MEDICINE [place] [facility] [place] [facility] Active, Pending, and Scheduled Orders [...] SPEC. 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 Ordering Provider: ALEJANDRA SNYDER Report Released Date/Time: Mar 16, 2024 10:45 AM Reporting Lab: [address] [address] Performing Lab: [address] [address] UREA NITROGEN 12 mg/dL 7-25 GLUCOSE 96 mg/dL 65-100 SODIUM 138 mmol/L 135-145 POTASSIUM 4.0 mmol/L 3.5-5.0 CHLORIDE 106 mmol/L 100-110 CO2 22 meq/L 20-30 CALCIUM 9.4 mg/dL 8.5-10.2 CREATININE, Serum 0.69 mg/dL 0.50-1.40 eGFR(CKD-EPI 2020) >90 mL/min >60 May 11, 2024 12:06 PM [facility] LEVETIRACETAM (Keppra) SERUM Specimen Type: S KENYATTA Comment: Brivaracetam (Briviact(R), Rikelta(R)) exhibits significant cross-reactivity in the Levetiracetam (Keppra(R), Spritam(R)) immunoassay. If Brivaracetam has been prescribed, order test code 16323 Levetiracetam by LCMSMS. Test Per[facility] by [facility], [employer] [facility], [address] [place] [address] Caleb Mullins M.D., Ph.D., Director of Laboratories , CLIA [id number] TEST PERFORMED AT: , Ordering Provider: JUAN GOMEZ Report Released Date/Time: May 11, 2024 11:48 AM Reporting Lab: [address] [address] Performing Lab: [facility] [address] [address] LEVETIRACETAM (Keppra) 8.3 ug/mL 6.0-46. 0 May 11, 2024 12:06 PM [facility] FOLATE (WROX) SERUM Specimen Type: SERUM No comment entered. Ordering Provider: JUAN GOMEZ Report Released Date/Time: May 11, 2024 11:48 AM Reporting [facility] [address] [facility] [address] Performing Lab: [facility] [address] [facility] [address] FOLATE (WROX) 11.1 ng/mL >5.2 May 11, 2024 12:06 PM [facility] VITAMIN B12 SERUM Specimen Type: SERUM No comment entered. Ordering Provider: JUAN GOMEZ Report Released Date/Time: May 11, 2024 11:48 AM Reporting Lab: [facility] [address] [facility] [address] Performing Lab: [facility] [address] [address] VITAMIN B12 714 pg/mL 200-900 May 11, 2024 12:06 PM [facility] LIPID PANEL, NON FASTING SERUM Specimen Type: SERUM No comment entered. Ordering Provider: JUAN GOMEZ Report Released Date/Time: May 11, 2024 11:48 AM Reporting Lab: [facility] [address] [facility] [address] Performing Lab: [facility] [address] [facility] [address] CHOLESTEROL 110 mg/dL TRIGLYCERIDE 84 mg/dL 0-150 LDL calculated 63 mg/dL 0-129 CHOL/HDL 3.7 HDL CHOLESTEROL 30 mg/dL L 40-60 May 11, 2024 12:06 PM [facility] LIVER FUNCTION SERUM Specimen Type: SERUM No comment entered. Ordering Provider: JUAN GOMEZ Report Released Date/Time: May 11, 2024 11:48 AM Reporting Lab: [address] [address] Performing Lab: [address] [address] PROTEIN,TOTAL 7.4 g/dL 6.0-8.3 ALBUMIN 3.9 g/dL 3.5-5.0 ALKALINE PHOSPHATASE 58 U/L 40-150 AST 25 U/L 5-34 ALT 22 U/L BILIRUBIN, TOTAL 1.3 mg/dL H 0.2-1.2 BILIRUBIN, DIRECT 0.5 mg/dL 0-0.5 May 11, 2024 12:06 PM [facility] BASIC METABOLIC PANEL (non-fasting) SERUM Spe cimen Type: SERUM No comment entered. Ordering Provider: JUAN GOMEZ Report Released Date/Time: May 11, 2024 11:48 AM Reporting Lab: [address] [address] Performing Lab: [address] [address] UREA NITROGEN 13 mg/dL 7-25 GLUCOSE 96 mg/dL 65-100 SODIUM 138 mmol/L 135-145 POTASSIUM 4.0 mmol/L 3.5-5.0 CHLORIDE 106 mmol/L 100-110 CO2 23 meq/L 20-30 CALCIUM 9.4 mg/dL 8.5-10.2 CREATININE, Serum 0.69 mg/dL 0.50-1.40 eGFR(CKD-EPI 2020) >90 mL/min >60 May 11, 2024 12:06 PM [facility] VITAMIN D (25-OH) SERUM Specimen Type: SERUM No comment entered. Ordering Provider: JUAN GOMEZ Report Released Date/Time: May 11, 2024 11:48 AM Reporting Lab: [address] [address] Performing Lab: [address] [address] VITAMIN D (25-OH) 25 ng/mL 20-50 May 11, 2024 12:06 PM [facility] CBC BLOOD Specimen Type: BLOOD No comment entered. Ordering Provider: JUAN GOMEZ Report Released Date/Time: May 11, 2024 11:48 AM Reporting Lab: [address] [address] Performing Lab: [address] [address] WBC 8.04 10*3/uL 4.50-11.00 RBC 4.60 10*6/uL 4.23-5.66 HGB 13.9 g/dL 12.8-17 HCT 40.8 39.2-50.4 MCV 88.7 fL 82-99 MCHC 34.1 g/dL 30.8-35.1 PLT 295 10*3/uL 140-360 RDW-CV 17.1 H 12.0-16.0 MCH 30.2 pg 26.2-32.6 May 11, 2024 12:06 PM [facility] MAGNESIUM SERUM Specimen Type: SERUM No comment entered. Ordering Provider: JUAN GOMEZ Report Released Date/Time: May 11, 2024 11:48 AM Reporting Lab: [address] [address] Performing Lab: [address] [address] MAGNESIUM 2.1 mg/dL 1.6-2.6 May 11, 2024 12:06 PM [facility] HEMOGLOBIN A1C PANEL BLOOD Specimen Type: [...] May 11, 2024 11:48 AM Reporting Lab: [address] [address] Performing Lab: [facility] [place] [facility] [address] [facility] [address] HEMOGLOBIN A1C 5.2 4.0-5.6 May 11, 2024 12:06 PM [facility] [place] [facility] TSH SERUM Specimen Type: SERUM No comment entered. Ordering Provider: JUAN GOMEZ Report Released Date/Time: May 11, 2024 11:48 AM Reporting Lab: [facility] [place] [facility] [address] [facility] [address] Performing Lab: [place] [facility] [facility] [address] [facility] [facility] [address] TSH 1.52 u[IU]/mL 0.35-5.00 Social History: Smoking Status (Most current) and [...] took place. Date/Time Current Smoking Status Comment [facility] July 24, 2023 10:00 AM VA-TOBACCO [facility] Tobacco Use History This section includes a history of the smoking, or tobacco-related health factors, that were collected on or before the date of the Encounter. The data comes from the [place] facility where the Encounter took place. Date/Time Smoking Status/Tobac co Use Comment Facility July 24, 2023 10:00 AM VA-TOBACCO QUIT 15 YRS OR MORE [place] [facility] [facility] July 14, 2022 03:30 PM VA-TOBACCO FORMER USER [facility] [place] [facility] July 14, 2022 03:30 PM VA-TOBACCO QUIT 15 YRS OR MORE [place] [facility] [place] [facility] Aug 05, 2021 01:00 PM VA-TOBACCO FORMER USER [place] [facility] [facility] Aug 05, 2021 01:00 PM VA-TOBACCO QUIT 5 TO < 15 YRS [place] [facility] [place] [facility] Sep 09, 2019 01:25 PM VA-TOBACCO FORMER USER [place] [facility] [place] [facility] Sep 09, 2019 01:25 PM VA-TOBACCO QUIT 5 TO < 15 YRS [place] [facility] [facility] Dec 04, 2017 10:18 AM VA-TOBACCO FORMER USER [place] [facility] [place] [facility] Dec 04, 2017 10:18 AM VA-TOBACCO QUIT 5 TO < 15 YRS [place] [facility] [place] [facility] May 29, 2017 09:09 AM QUIT TOBACCO USE > 7 YEARS AGO [place] [facility] [place] [facility] Apr 23, 2015 08:21 AM QUIT TOBACCO USE > 7 YEARS AGO [place] [facility] [place] [facility] Apr 23, 2015 08:21 AM QUIT TOBACCO USE 1-7 YEARS AGO [place] [facility] [facility] Mar 06, 2011 11:06 AM QUIT TOBACCO USE 1-7 YEARS AGO [place] [facility] [place] [facility] Apr 08, 2010 10:56 AM CURRENT SMOKER cigar once in a while [facility] [place] [facility] Apr 08, 2010 10:56 AM V1-PT DECLINES REF [facility]AC[facility] [place] [facility] Apr 08, 2010 10:56 AM V1-PT DECLINES TOBACCO CESSATION MEDS [facility] [place] [facility] Apr 08, 2010 10:56 AM V1-PT READY TO QUIT TOBACCO USE [facility] [place] [facility] Feb 21, 2009 09:16 AM CURRENT SMOKER cigar once in a while [facility] [place] [facility] Feb 21, 2009 09:16 AM V1-PT DECLINES REF TO TOBACCO CESS [facility] [place] [facility] [place] [facility] Feb 21, 2009 09:16 AM V1-PT DECLINES TOBACCO CESSATION MEDS [place] [facility] [place] [facility] Feb 21, 2009 09:16 AM V1-PT THINKING ABOUT QUIT TOBACCO USE [place] [facility] [place] [facility] Dec 16, 2007 09:15 AM QUIT TOBACCO USE 1-7 YEARS AGO [place] [facility] [place] [facility] Apr 01, 2007 11:08 AM QUIT TOBACCO USE 1-7 YEARS AGO [place] [facility] [place] [facility] Sep 28, 2006 08:52 AM QUIT TOBACCO USE IN PAST YEAR [place] [facility] Apr 21, 2006 10:31 AM QUIT TOBACCO USE IN PAST YEAR August 2005 [facility] Dec 16, 2005 10:02 AM CURRENT SMOKER OCCASIONAL CIGAR [facility] May 19, 2001 03:50 PM CURRENT SMOKER see below [facility] Pathology Reports: +/- 30 days of [...] the Encounter. The [facility]. Date/Time Pathology Report Provider Source May 02, 2024 10:07 AM LR SURGICAL PATHOLOGY REPORT: LOCAL TITLE: LR SURGICAL PATHOLOGY REPORT STANDARD TITLE: PATHOLOGY REPORT DATE OF NOTE: MAY 02, 2024@10:07:13 ENTRY DATE: MAY 02, 2024@10:07:13 AUTHOR: RADHA MARTINEZ MD EXP COSIGNER: URGENCY: STATUS: COMPLETED $APHDR Reporting Lab: [facility] [CLIA# [id number]] [address] [place] [address] - - - - - - - [...] (Received Apr 28, 2024): A:LEFT UPPER BACK SKIN([id number]) B:RIGHT UPPER BACK SKIN([id number]) - - - - - - - [...] GROSS DESCRIPTION: The specimen is recieved from [facility], [facility] 1510;A;1;Luis KRISHNA. Received in formalin labeled with the [...] cross section in cassette B2. GIA Pacheco [facility] 04/28/2024 /Charline Mg MD Board Certified Dermatopathologist Signed May 02, 2024@10:07 Performing Laboratory: Surgical Pathology Report Performed By: [facility] [CLIA# [id number]] [address] [place] [id number] $FTR - - - - - - [...] - - JAY KRISHNA STANDARD FORM 515 ID:[id number] SEX:M :1960 AGE: 64 LOC:*REPLACED BY [facility] PCP: /Charline Mg MD Board Certified Dermatopathologist Signed: 05/02/2024 10:07 RADHA MARTINEZ MD [facility] May 02, 2024 10:04 AM LR SURGICAL PATHOLOGY REPORT: LOCAL TITLE: LR SURGICAL PATHOLOGY REPORT STANDARD TITLE: PATHOLOGY DIAGNOSTIC STUDY REPORT DATE OF NOTE: MAY 02, 2024@10:04:16 ENTRY DATE: MAY 02, 2024@10:04:16 AUTHOR: RADHA MARTINEZ MD EXP COSIGNER: URGENCY: STATUS: COMPLETED $APHDR Reporting Lab: [facility] MART[facility]NE[facility] [CLIA# [id number]] [address] [place] [id number] - - - - - - - [...] - - - PATHOLOGY REPORT Accession No. [facility] - - - - - - - [...] - - - PATHOLOGY REPORT Accession No. [facility] - - - - - - - - - - - - - - - - - - - - - - - - - - - - - - - - - - - - - - - - Gross description: The specimen is recieved from [facility], [facility] 1510;A;1;KRISHNA,B A. Received in formalin labeled [...] for further evaluation and treatment. CPT codes 87513p7 /daniela/ RADHA MARTINEZ MD Board Certified Dermatopathologist Signed May 02, 2024@10:04 Performing Laboratory: Surgical Pathology Report Performed By: [facility] [CLIA# [id number]] [address] [place] [address] $FTR - - - - - - [...] - - JAY KRISHNA STANDARD FORM 515 ID:[id number] SEX:M :1960 AGE: 64 LOC:[facility] DERMATOLOGY FOOD PRODUCTS TESTER 1 PM PCP: Juan Gomez NP /daniela/ RADHA MARTINEZ MD Board Certified Dermatopathologist Signed: 05/02/2024 10:04 RADHA MARTINEZ MD [facility] Encounter Notes: All associated encounter notes This section contains the clinical notes associated to the Encounter. Date/Time Encounter Note(s) Provider Source May 03, 2024 07:20 AM OPTOMETRY NOTE: LOCAL TITLE: OPTOMETRY NOTE STANDARD TITLE: OPTOMETRY NOTE DATE OF NOTE: MAY 03, 2024@07:20 ENTRY DATE: MAY 03, 2024@07:20:59 AUTHOR: JYOTI HODGE EXP COSIGNER: MELVA LUNA URGENCY: STATUS: COMPLETED OPTOMETRY NOTE Has [...] Dependence * 11. Diabetes mellitus (SNOMED CT 60144712) 12. Atrial fibrillation (SNOMED CT 87229759) 13. Benign essential hypertension (SNOMED CT 5995421) 14. Family History of Ischemic Heart Disease 15. Obesity (SNOMED CT 589079744) 16. Hyperlipidemia 17. Chronic Low Back Pain [...] - Pt ed about findings - No [id number] indicated at this exam - Monitor 4. [...] of active outpatient prescriptions dispensed from this [facility] (local) and dispensed from another VA or [...] JLV. Allergies/ADRs (Tool #5) FACILITY ALLERGY/ADR -------- [facility] AMITRIPTYLINE [facility] ERYTHRITOL [facility] GABAPENTIN [place] [facility] [place] [facility]YTHROMYCIN [facility] AMITRIPTYLINE [facility] GABAPENTIN Med. Reconciliation (Tool #1) INCLUDED IN THIS LIST: Alphabetical list of active outpatient prescriptions dispensed from this [place] (local) and dispensed from another [place] or [facility] facility (remote) as well as inpatient orders (local pending and active), local clinic medications, locally documented non-VA medications, and local prescriptions that have or been discontinued in the past 90 days. Non-VA Meds Last Documented On: Mar 16, 2024 NOTE The display of VA prescriptions dispensed from another [place] or [facility]D facility (remote) is limited to active outpatient prescription entries matched to National Drug File at the originating site and may not include some items such as investigational drugs, compounds, etc. NOT INCLUDED IN THIS LIST: Medications self-entered by the patient into personal health records (i.e. [facility]) are NOT included in this list. Non-VA medications documented outside this [place], remote inpatient orders (regardless of status) and [...] TIMES A DAY FOR DRY EYE Rx# [id number] Last Released: 04/25/23 Qty/Days Supply: Rx Expiration Date: 04/22/24 Refills Remainin Indication: FOR DRY EYE OUTPT CHLORTHALIDONE 25MG TAB (Status = Active/Suspended) TAKE ONE TABLET BY MOUTH ONCE DAILY TO REMOVE FLUID/CONTROL BLOOD PRESSURE Rx# [id number] Last Released: 03/18/24 Qty/Days Supply: Rx Expiration Date: 03/17/25 Refills Remainin Indication: FOR HIGH BLOOD PRESSURE OUTPT CLOBETASOL PROPIONATE 0.05% CREAM (Status = Active) APPLY A THIN LAYER TOPICALLY TWICE DAILY FOR ITCHING/RASH APPLY TO AFFECTED AREAS FOR 2 WEEKS, THEN NEEDED Rx# [id number] Last Released: 10/06/23 Qty/Days Supply: 6030 Rx Expiration Date: 10/01/24 Refills Remainin Indication: FOR SKIN INFLAMMATION Non-VA CLOPIDOGREL BISULFATE 75MG TAB TAKE ONE TABLET BY MOUTH ONCE DAILY Medication prescribed by Non-VA provider. Indication: TO PREVENT BLOOD CLOTS OUTPT CLOTRIMAZOLE 1% TOP SOLN (Status = Active) APPLY 1 DROP TOPICALLY ONCE DAILY FOR FUNGAL INFECTION APPLY TO NAILS WHEN DRY Rx# [id number] Last Released: 09/28/23 Qty/Days Supply: Rx Expiration [...] DAY TO PREVENT FLUID/CONTROL BLOOD PRESSURE Rx# [id number] Last Released: 11/02/23 Qty/Days Supply: Rx Expiration Date: 08/11/24 Refills Remainin Non-VA METOPROLOL SUCCINATE 200MG SA TAB TAKE ONE TABLET BY MOUTH ONCE DAILY Medication prescribed by Non-VA provider. Indication: afibb OUTPT METOPROLOL SUCCINATE 50MG SA TAB (Status = Discontinued) TAKE THREE TABLETS BY MOUTH ONCE DAILY FOR BLOOD PRESSURE/HEART Rx# [id number] Last Released: 08/13/23 Qty/Days Supply: 270/ Rx Expiration Date: 08/11/24 Refills Remainin Indication: FOR HIGH BLOOD PRESSURE OUTPT METRONIDAZOLE 0.75% TOP GEL (Status = Discontinued) APPLY SMALL AMOUNT TOPICALLY TWICE DAILY FOR ACNE ROSACEA Rx# [id number] Last Released: 10/06/23 Qty/Days Supply: 90 Rx Expiration Date: 04/02/24 Refills Remainin Indication: FOR ACNE ROSACEA OUTPT METRONIDAZOLE 0.75% TOP GEL (Status = Active) APPLY SMALL AMOUNT TOPICALLY TWICE DAILY FOR ACNE ROSACEA Rx# [id number] Last Released: Qty/Days Supply: 90 Rx Expiration Date: 04/28/25 Refills Remainin Indication: FOR ACNE ROSACEA OUTPT MICONAZOLE NITRATE 2% TOP PWDR (Status = Active) APPLY SMALL AMOUNT TOPICALLY TWICE DAILY NEEDED FOR FUNGAL INFECTION OF SKIN Rx# [id number] Last Released: 04/29/24 Qty/Days Supply: 85/30 Rx Expiration Date: 04/28/25 Refills Remainin Indication: FOR FUNGAL INFECTION OF SKIN OUTPT MOISTURIZING (EQV-LUBRIDERM)UNSCENT LOT (Status = Active) APPLY LIBERAL AMOUNT TOPICALLY DIRECTED DRY SKIN Rx# [id number] Last Released: 04/29/24 Qty/Days Supply: 473/ Rx Expiration Date: 04/28/25 Refills Remainin Indication: DRY SKIN OUTPT OMEPRAZOLE 20MG EC CAP (Status = Discontinued) TAKE ONE CAPSULE BY MOUTH TWICE DAILY BEFORE A MEAL FOR GASTROESOPHAGEAL REFLUX DISEASE Rx# [id number] Last Released: 10/17/23 Qty/Days Supply: 180/ Rx [...] FOR EXCESSIVE PRODUCTION OF STOMACH ACID Rx# [id number] Last Released: 02/19/24 Qty/Days Supply: Rx Expiration Date: 02/11/25 Refills Remainin Indication: FOR EXCESSIVE PRODUCTION OF STOMACH ACID OUTPT RIVAROXABAN 20MG TAB (Status = Discontinued) TAKE ONE TABLET BY MOUTH EVERY EVENING WITH FOOD Rx# [id number] Last Released: 10/27/23 Qty/Days Supply: Rx Expiration Date: 08/11/24 Refills Remainin Non-VA SEMAGLUTIDE 2MG/0.75ML INJ PEN 3ML INJECT 2MG SUBCUTANEOUSLY ONCE A WEEK Medication prescribed by Non-VA provider. Indication: FOR TYPE 2 DIABETES MELLITUS OUTPT SILDENAFIL CITRATE 100MG TAB (Status = Active) TAKE ONE TABLET BY MOUTH ONCE DAILY TAKE 1 HOUR PRIOR TO SEXUAL ACTIVITY Rx# [id number] Last Released: 04/25/24 Qty/Days Supply: Rx Expiration Date: 08/11/24 Refills Remainin Indication: FOR ERECTILE DYSFUNCTION OUTPT SIMVASTATIN 80MG TAB (Status = Discontinued) TAKE ONE-HALF TABLET BY MOUTH EVERY EVENING FOR CHOLESTEROL Rx# [id number] Last Released: 01/14/24 Qty/Days Supply: Rx Expiration Date: 04/02/24 Refills Remainin OUTPT SIMVASTATIN 80MG TAB (Status = Active) TAKE ONE-HALF TABLET BY MOUTH EVERY EVENING FOR CHOLESTEROL Rx# [id number] Last Released: 04/27/24 Qty/Days Supply: Rx Expiration Date: 04/23/25 Refills Remainin OUTPT TERBINAFINE HCL 1% CREAM (Status = Active) APPLY A THIN LAYER TOPICALLY TWICE DAILY FOR RINGWORM OF THE BODY APPLY TO RIGHT LEG UP TO 1-4 WEEKS UNTIL RASH RESOLVES Rx# [id number] Last Released: Qt/Days Supply: Rx Expiration Date: 04/28/25 Refills Remainin Indication: FOR RINGWORM OF THE BODY OUTPT VALSARTAN 160MG TAB (Status = Active) TAKE ONE TABLET BY MOUTH ONCE DAILY FOR HIGH BLOOD PRESSURE Rx# [id number] Last Released: 03/21/24 Qty/Days Supply: Rx Expiration Date: 02/11/25 Refills Remainin Indication: FOR HIGH BLOOD PRESSURE SUPPLIES PHARMACY TERMS AND POSSIBLE PATIENT ACTIONS INPT = [place] inpatient order IV = [place] intravenous medication OUTPT = [place] outpatient prescription PHARMACY POSSIBLE PATIENT TERMS EXPLANATION ACTIONS -------- - ACTIVE A prescription that can be If you have refills, filled at the local [place] pharmacy. you may request a refill of this prescription from your [place] pharmacy. CLINIC A medication you received during If you have questions a visit to a [place] clinic or about this medication emergency department. contact your [place] healthcare team. DISCONTINUED A prescription your provider has Contact [facility] stopped. It is no longer healthcare team if you available to be sent to you or need more of this picked up at the [place] pharmacy medication. window. A prescription which is [...] the [facility]. Or, it may be an [id number] (OTC), herbal, dietary supplements or sample medication. [...] Medication Reconciliation List Offered and Declined by [place] () Medication Reconciliation List Printed for at Exam () Optometry HT Please Print and Mail Copy of Medication Reconciliation List () AMSA Please Print and Mail Copy of Medication Reconciliation List /[email or web address]/ JYOTI HODGE OPTOMETRY STUDENT Signed: 05/03/2024 12:52 /daniela/ MELVA LUNA OD GAS PUMPER Cosigned: 05/03/2024 12:56 05/03/2024 ADDENDUM STATUS: COMPLETED The optometry sports internship participated in this exam, I saw this [...] assessment and plan. Ed re today's findings. [place] repeated back the plan and education. All reminders completed by attending and documented in student note. /daniela/ MELVA LUNA OD GAS PUMPER Signed: 05/03/2024 12:56 JYOTI HODGE [place] [facility]
--- OUTSIDE RECORDS SUMMARY | 2024-06-29 12:29 | XMS_ITS | Data Portability ---
Author Organization [facility], Main Office Address [address] [place] [address] Care Team Providers Care Game And Fish Protector Name Role Phone MENDY HADLEY Orthopedic Surgeon GASPER SANCHES Internal Medicine WADE TATE Trauma Nurse [phone] [facility] ([place]) Referring Provider KALEB HINES Primary Care Provider [facility] ([place] Tongue And Quarter Stitcher Assessment Encounter Date Assessment Date Assessment LastModified by Organization Details LastModified Time 05/09/2024 05/09/2024 New onset seizure disorder in 64yo. Unclear what underlying cause is. Advised to continue Keppra and follow up with neurology as planned. REassured about bicep tendon rupture, though he has decreased ROM right shoulder and may have rotator cuff tear. We discussed the fact that he would not be a candidate for repair presently, and should focus on management of seizure disorder before seeking treatment for the shoulder. Will likely need ortho evaluation. Hypokalemia noted in hospital and chlorthalido Plans visit with neurology at [facility] in [place]. EEG reading and official MRI requested. [email or web address] Not available 05/11/2024 07:21:59 Plan of Treatment Reminders Order Date Submit Date Provider Last Modified By Organization Details Last Modified Time Details Appointments PE EST 2024 11:00A M Kaleb andino MD Not available Not available Not available Lab lipid panel, serum 2024 025 SHABNAM [facility] (Centralized Electronic Ordering - All Locations), Patient Can Go To The Location Of Their Choice, 04/26/2024 10:40:57 CBC w/ auto diff 2024 025 SH[facility] (Centralized Electronic Ordering - All Locations), Patient Can Go To The Location Of Their Choice, 04/26/2024 10:40:16 iron + total iron-bi nding capacit y (TIBC), serum 2024 025 SHABNAM [facility] (Centralized Electronic Ordering - All Locations), Patient Can Go To The Location Of Their Choice, 04/26/2024 10:40:16 ferriti n, serum or plasma 2024 025 SHABNAM [facility] (Centralized Electronic Ordering - All Locations), Patient Can Go To The Location Of Their Choice, 04/26/2024 10:40:17 Referral orthope dic surgeon roscoe ortiz - He injured his right shoulde r after falling from his bed during a seizure 05/04/24 . Pain over bicipit al tendon with possibl e rupture . His only imaging was an xray of his shoulde r. [facility] [address] [place], [address], 06/28/2024 15:57:46 neurolo gist referra l 2024 025 mavis Pereyra MD, [address] [place] [address] , [address], [address], 05/11/2024 07:23:34 Procedures None recorde d. Surgeries None recorde d. Imaging None recorde d. Medication Orders fluoxet ine 10 mg tablet 2024 025 [email or web address] [facility][id number], [address], [place], [id number], 06/22/2024 16:26:31 oxycodo ne 5 mg tablet 2024 025 [facility] #31416, [address], [place], [id number], 04/26/2024 10:51:42 oxycodo ne 5 mg tablet 2024 025 [facility] #33912, [address], [place], [id number], 04/26/2024 10:51:41 oxycodo ne 5 mg tablet 2024 025 [facility] #42795, [address], [place], [id number], 04/26/2024 10:51:46 metopro lol succina te ER 200 mg tablet, extende d release 24 hr 2024 [facility] #65957, [address], [place], [id number], 04/26/2024 10:39:34 amoxici llin 500 mg capsule 2024 025 [facility] #33548, [address], [place], [id number], 04/26/2024 10:39:04 oxycodo ne 5 mg tablet 2023 024 [facility] #75609, [address], [place], [id number], 01/27/2024 17:50:30 oxycodo ne 5 mg tablet 2023 024 [facility] #56869, [address], [place], [id number], 01/27/2024 17:50:13 oxycodo ne 5 mg tablet 2023 024 [facility] #09525, [address], [place], [id number], 01/27/2024 17:50:14 ferrous glucona te 324 mg (38 mg iron) tablet [address] [facility] #53899, [address], [place], [id number], 05/09/2024 15:07:50 ascorbi c acid (vitami n C) 500 mg tablet [address] [facility] #43785, [address], [place], [id number], 05/09/2024 15:07:40 Patient TargetsNo targets recorded. Patient Instructions Encounter Date Encounter Id Patient Instructions Last Modified By Organization Details Last Modified Time 01/27/2024 [id number] iron deficiency anemia: care instructions [email or web address] Not available 01/27/2024 14:23:49 Medications (OTC, herbal therapies, supplements) reviewed and reconciled with patient and or caregiver, including potential side effects, drug interactions, instructions, and the consequences of not taking medication. Reviewed potential barriers to medication adherence, such as side effects from medication or cost of medication. [email or web address] Not available 01/27/2024 13:48:00 04/26/2024 [id number] high cholesterol: care instructions [email or web address] Not available 04/26/2024 10:40:55 iron deficiency anemia: care instructions [email or web address] Not available 04/26/2024 10:40:11 05/09/2024 [id number] epilepsy: care instructions [email or web address] Not available 05/09/2024 15:22:44 At [facility] follow up visit, all current and discharge medications (OTC, herbal therapies, supplements) reviewed and reconciled with patient and or caregiver, including potential side effects, drug interactions, instructions, and the consequences of not taking medication. Reviewed potential barriers to medication adherence, such as side effects from medication or cost of medication. [email or web address] Not available 05/09/2024 14:59:06 06/10/2024 [id number] epilepsy: care instructions [email or web address] Not available 06/10/2024 17:22:19 Reason for Referral Neurologist Referral for Sei zure disorder Referring Physician: Jurgen Gill, Internal Medicine, Encounter Date: 05/09/2024 Orthopedic Surgeon Referral for Pain of right shoulder region He injured his right shoulder after falling from his bed during a seizure 05/04/24. Pain over bicipital tendon with possible rupture. His only imaging was an xray of his shoulder. Referring Physician: Kaleb Hines, Family Medicine, Encounter Date: 06/10/2024 Results Created Date Observation Date Name Description Value Unit Range Abnormal Flag Note LastModifiedBy Organization Detail LastModifiedTime 12/29/1912/29/2023 CBC, PLATE LET, NO DIFFE RENTI AL WBC 6.6 x10e3 /uL 3.4-10 .8 normal Not Available [facility] ([facility]) [address] [place], [address], 12/29/2023 22:06:00 12/29/1912/29/2023 CBC, PLATE LET, NO DIFFE RENTI AL RBC 4.26 x10e6 /uL 4.14-5 .80 normal Not Available [facility] ([facility]) [address] [place], [address], 12/29/2023 22:06:00 12/29/19 24 12/29/2023 CBC, PLATE LET, NO DIFFE RENTI AL hemoglobin 10.9 g/dL 13.0-1 7.7 below low normal Not Available [facility] ([facility]) [address] [place], [address], 12/29/2023 22:06:00 12/29/1912/29/2023 CBC, PLATE LET, NO DIFFE RENTI AL hematocrit 37.3 % 37.5-5 1.0 below low normal Not Available [facility] ([facility]) [address] [place], [address], 12/29/2023 22:06:00 12/29/1912/29/2023 CBC, PLATE LET, NO DIFFE RENTI AL MCV 88 fL 79-97 normal Not Available [facility] ([facility]) [address] [place], [address], 12/29/2023 22:06:00 12/29/19 24 12/29/2023 CBC, PLATE LET, NO DIFFE RENTI AL MCH 25.6 pg 26.6-3 3.0 below low normal Not Available [facility] ([facility]) [address] [place], [address], 12/29/2023 22:06:00 12/29/19 24 12/29/2023 CBC, PLATE LET, NO DIFFE RENTI AL MCHC 29.2 g/dL 31.5-3 5.7 below low normal Not Available [facility] ([facility]) [address] [place], [address], 12/29/2023 22:06:00 12/29/19 24 12/29/2023 CBC, PLATE LET, NO DIFFE RENTI AL RDW 16.7 % 11.6-1 5.4 above high normal Not Available [facility] ([facility]) [address] [place], [address], 12/29/2023 22:06:00 12/29/19 24 12/29/2023 CBC, PLATE LET, NO DIFFE RENTI AL platelets 363 x10e3 /uL 150-45 0 normal Not Available [facility] ([facility]) [address] [place], [address], 12/29/2023 22:06:00 12/29/19 24 12/29/2023 CBC, PLATE LET, NO DIFFE RENTI AL NRBC ADMINISTRATIVE OFFICER Not Available [facility] ([facility]) [address] [place], [address], 12/29/2023 22:06:00 01/07/20 24 01/07/2024 POCT GLUCO SE, BLOOD glucose poct 89 mg/dL 70-199 Fasti ng Refer ence Range : 70-99 mg/dL Non-F astin g Refer ence Range : 70-19 9 mg/dL Not Available [facility] (Direct Fax All) [facility], [place], [address], 01/07/2024 12:32:04 01/07/20 24 01/07/2024 POCT GLUCO SE, BLOOD note See Report [facility], [address], [place] [id number] Not Available [facility] (Direct Fax All) Any [facility], [place], [address], 01/07/2024 12:32:04 01/07/20 24 01/07/2024 TYPE AND SCREE N ABO group A Not Available [address], [address], 01/07/2024 16:10:07 01/07/20 24 01/07/2024 TYPE AND SCREE N Rh type Positi ve Not Available [address], [address], 01/07/2024 16:10:07 01/07/20 24 01/07/2024 TYPE AND SCREE N antibody screen Negati ve Not Available [address], [address], 01/07/2024 16:10:07 01/07/20 24 01/07/2024 TYPE AND SCREE N note See Report [facility], [address], [place] [id number] Not Available [address], [address], 01/07/2024 16:10:07 01/25/20 24 01/25/2024 CBC WITH DIFFE RENTI AL/PL ATELE T WBC 6.4 x10e3 /uL 3.4-10 .8 normal Eff ectiv e Decem nelli 2023 [place] [id number] 5 WBC will be made* * non-o rdera ble as a stand -abhilash e order code. Not Available [facility] ([facility]) [address] [facility], [place], [address], 01/26/2024 06:08:48 01/25/20 24 01/25/2024 CBC WITH DIFFE RENTI AL/PL ATELE T RBC 4.49 x10e6 /uL 4.14-5 .80 normal Not Available [facility] ([facility]) [address] [place], [address], 01/26/2024 06:08:48 01/25/20 24 01/25/2024 CBC WITH DIFFE RENTI AL/PL ATELE T hemoglobin 10.8 g/dL 13.0-1 7.7 below low normal Not Available [facility] ([facility]) [address] [place], [address], 01/26/2024 06:08:48 01/25/20 24 01/25/2024 CBC WITH DIFFE RENTI AL/PL ATELE T hematocrit 36.6 % 37.5-5 1.0 below low normal Not Available [facility] ([facility]) [address] [place], [address], 01/26/2024 06:08:48 01/25/20 24 01/25/2024 CBC WITH DIFFE RENTI AL/PL ATELE T MCV 82 fL 79-97 normal Not Available [facility] ([facility]) [address] [place], [address], 01/26/2024 06:08:48 01/25/20 24 01/25/2024 CBC WITH DIFFE RENTI AL/PL ATELE T MCH 24.1 pg 26.6-3 3.0 below low normal Not Available [facility] ([facility]) [address] [facility], [place], [address], 01/26/2024 06:08:48 01/25/20 24 01/25/2024 CBC WITH DIFFE RENTI AL/PL ATELE T MCHC 29.5 g/dL 31.5-3 5.7 below low normal Not Available [facility] ([facility]) [address] [place], [address], 01/26/2024 06:08:48 01/25/20 24 01/25/2024 CBC WITH DIFFE RENTI AL/PL ATELE T RDW 16.1 % 11.6-1 5.4 above high normal Not Available [facility] ([facility]) [address] [place], [address], 01/26/2024 06:08:48 01/25/20 24 01/25/2024 CBC WITH DIFFE RENTI AL/PL ATELE T platelets 358 x10e3 /uL 150-45 0 normal Not Available [facility] ([facility]) [address] [place], [address], 01/26/2024 06:08:48 01/25/20 24 01/25/2024 CBC WITH DIFFE RENTI AL/PL ATELE T neutrophils 68 % not estab. normal Not Available [facility] ([facility]) [address] [place], [address], 01/26/2024 06:08:48 01/25/20 24 01/25/2024 CBC WITH DIFFE RENTI AL/PL ATELE T lymphs 18 % not estab. normal Not Available [facility] ([facility]) [address] [place], [address], 01/26/2024 06:08:48 01/25/20 24 01/25/2024 CBC WITH DIFFE RENTI AL/PL ATELE T monocytes 9 % not estab. normal Not Available [facility] ([facility]) [address] [place], [address], 01/26/2024 06:08:48 01/25/20 24 01/25/2024 CBC WITH DIFFE RENTI AL/PL ATELE T eos 2 % not estab. normal Not Available [facility] ([facility]) [address] [place], [address], 01/26/2024 06:08:48 01/25/20 24 01/25/2024 CBC WITH DIFFE RENTI AL/PL ATELE T basos 3 % not estab. normal Not Available [facility] ([facility]) [address] [place], [address], 01/26/2024 06:08:48 01/25/20 24 01/25/2024 CBC WITH DIFFE RENTI AL/PL ATELE T immature cells ADMINISTRATIVE OFFICER Not Available [facility] ([facility]) [address] [place], [address], 01/26/2024 06:08:48 01/25/20 24 01/25/2024 CBC WITH DIFFE RENTI AL/PL ATELE T neutrophils (absolute) 4.4 x10e3 /uL 1.4-7. 0 normal Not Available [facility] ([facility]) [address] [place], [address], 01/26/2024 06:08:48 01/25/20 24 01/25/2024 CBC WITH DIFFE RENTI AL/PL ATELE T lymphs (absolute) 1.1 x10e3 /uL 0.7-3. 1 normal Not Available [facility] ([facility]) [address] [place], [address], 01/26/2024 06:08:48 01/25/20 24 01/25/2024 CBC WITH DIFFE RENTI AL/PL ATELE T monocytes(ab solute) 0.6 x10e3 /uL 0.1-0. 9 normal Not Available [facility] ([facility]) [address] [place], [address], 01/26/2024 06:08:48 01/25/20 24 01/25/2024 CBC WITH DIFFE RENTI AL/PL ATELE T eos (absolute) 0.1 x10e3 /uL 0.0-0. 4 normal Not Available [facility] ([facility]) [address] [facility], [place], [address], 01/26/2024 06:08:48 01/25/20 24 01/25/2024 CBC WITH DIFFE RENTI AL/PL ATELE T baso (absolute) 0.2 x10e3 /uL 0.0-0. 2 normal Not Available [facility] ([facility]) [address] [facility], [place], [address], 01/26/2024 06:08:48 01/25/20 24 01/25/2024 CBC WITH DIFFE RENTI AL/PL ATELE T immature granulocytes 0 % not estab. Not Available [facility] ([facility]) [address] [facility], [place], [address], 01/26/2024 06:08:48 01/25/20 24 01/25/2024 CBC WITH DIFFE RENTI AL/PL ATELE T immature grans (abs) 0.0 x10e3 /uL 0.0-0. 1 Not Available [facility] ([facility]) [address] [place], [address], 01/26/2024 06:08:48 01/25/20 24 01/25/2024 CBC WITH DIFFE RENTI AL/PL ATELE T NRBC ADMINISTRATIVE OFFICER Not Available [facility] ([facility]) [address] [place], [address], 01/26/2024 06:08:48 01/25/20 24 01/25/2024 CBC WITH DIFFE RENTI AL/PL ATELE T hematology comments: ADMINISTRATIVE OFFICER Not Available [facility] ([facility]) [address] [place], [address], 01/26/2024 06:08:48 01/25/20 24 01/25/2024 COMP. METAB OLIC PANEL (14) glucose 102 mg/dL 70-99 above high normal Not Available [facility] ([facility]) [address] [facility] [place], [address], 01/26/2024 06:08:49 01/25/20 24 01/25/2024 COMP. METAB OLIC PANEL (14) BUN 11 mg/dL 8-27 normal Not Available [facility] ([facility]) [address] [facility] [place], [address], 01/26/2024 06:08:49 01/25/20 24 01/25/2024 COMP. METAB OLIC PANEL (14) creatinine 0.91 mg/dL 0.76-1 .27 normal Not Available [facility] ([facility]) [address] [facility], [place], [address], 01/26/2024 06:08:49 01/25/20 24 01/25/2024 COMP. METAB OLIC PANEL (14) eGFR 95 mL/mi n/1.7 3 >59 normal Not Available [facility] ([facility]) [address] [facility] [place], [address], 01/26/2024 06:08:49 01/25/20 24 01/25/2024 COMP. METAB OLIC PANEL (14) BUN/creatini ne ratio 12 10-24 normal Not Available [facility] ([facility]) [address] [facility] [place], [address], 01/26/2024 06:08:49 01/25/20 24 01/25/2024 COMP. METAB OLIC PANEL (14) sodium 141 mmol/ L 134-14 4 normal Not Available [facility] ([facility]) [address] [facility] [place], [address], 01/26/2024 06:08:49 01/25/20 24 01/25/2024 COMP. METAB OLIC PANEL (14) potassium 4.8 mmol/ L 3.5-5. 2 normal Not Available [facility] ([facility]) [address] [facility] [place], [address], 01/26/2024 06:08:49 01/25/20 24 01/25/2024 COMP. METAB OLIC PANEL (14) chloride 106 mmol/ L 96-106 normal Not Available [facility] ([facility]) [address] [facility], [place], [address], 01/26/2024 06:08:49 01/25/20 24 01/25/2024 COMP. METAB OLIC PANEL (14) carbon dioxide, total 21 mmol/ L 20-29 normal Not Available [facility] ([facility]) [address] [facility], [place], [address], 01/26/2024 06:08:49 01/25/20 24 01/25/2024 COMP. METAB OLIC PANEL (14) calcium 9.2 mg/dL 8.6-10 .2 normal Not Available [facility] ([facility]) [address] [place], [address], 01/26/2024 06:08:49 01/25/20 24 01/25/2024 COMP. METAB OLIC PANEL (14) protein, total 6.6 g/dL 6.0-8. 5 normal Not Available [facility] ([facility]) [address] [place], [address], 01/26/2024 06:08:49 01/25/20 24 01/25/2024 COMP. METAB OLIC PANEL (14) albumin 4.0 g/dL 3.9-4. 9 normal Not Available [facility] ([facility]) [address] [facility], [place], [address], 01/26/2024 06:08:49 01/25/20 24 01/25/2024 COMP. METAB OLIC PANEL (14) globulin, total 2.6 g/dL 1.5-4. 5 Not Available [facility] ([facility]) [address] [place], [address], 01/26/2024 06:08:49 01/25/20 24 01/25/2024 COMP. METAB OLIC PANEL (14) bilirubin, total 0.7 mg/dL 0.0-1. 2 normal Not Available [facility] ([facility]) [address] [place], [address], 01/26/2024 06:08:49 01/25/20 24 01/25/2024 COMP. METAB OLIC PANEL (14) alkaline phosphatase 75 IU/L 44-121 normal Not Available [facility] ([facility]) [address] [place], [address], 01/26/2024 06:08:49 01/25/20 24 01/25/2024 COMP. METAB OLIC PANEL (14) AST (SGOT) 17 IU/L 0-40 normal Not Available [facility] ([facility]) [address] [place], [address], 01/26/2024 06:08:49 01/25/20 24 01/25/2024 COMP. METAB OLIC PANEL (14) ALT (SGPT) 12 IU/L 0-44 normal Not Available [facility] ([facility]) [address] [place], [address], 01/26/2024 06:08:49 01/25/20 24 01/25/2024 IRON AND TIBC iron bind.cap.(TI BC) 419 ug/dL 250-45 0 normal Not Available [facility] ([facility]) [address] [place], [address], 01/26/2024 06:08:49 01/25/20 24 01/25/2024 IRON AND TIBC UIBC 402 ug/dL 111-34 3 above high normal Not Available [facility] ([facility]) [address] [facility], [place], [address], 01/26/2024 06:08:49 01/25/20 24 01/25/2024 IRON AND TIBC iron 17 ug/dL 38-169 below low normal Not Available [facility] ([facility]) [address] [facility], [place], [address], 01/26/2024 06:08:49 01/25/20 24 01/25/2024 IRON AND TIBC iron saturation 4 % 15-55 alert low Not Available [facility] ([facility]) [address] [facility], [place], [address], 01/26/2024 06:08:49 01/25/20 24 01/26/2024 HEMOG LOBIN A1C hemoglobin A1C 5.8 % 4.8-5. 6 above high normal Predi abete s: 5.7 - 6.4 Diabe falguni: >6.4 Glyce karli contr ol for adult s with diabe falguni: <7.0 Not Available [facility] ([facility]) [address] [facility], [place], [address], 01/26/2024 06:08:50 01/25/20 24 01/25/2024 HUA TIN ferritin 13 NG/mL 30-400 below low normal Not Available [facility] ([facility]) [address] [facility], [place], [address], 01/26/2024 06:08:51 01/06/20 24 H&P No observ ation record ed. [email or web address] [address], [address], 01/06/2024 17:33:34 01/08/20 24 01/07/2024 disch arge summa ry No observ ation record ed. [address], [address], 01/09/2024 08:31:45 01/08/20 24 ECG 12-le ad No observ ation record ed. [address], [address], 01/10/2024 13:32:35 02/22/20 24 02/22/2024 H&P No observ ation record ed. [address], [address], 02/24/2024 10:11:10 02/22/20 24 02/22/2024 proce dures No observ ation record ed. [address], [address], 02/24/2024 10:11:11 02/22/20 24 02/22/2024 trans esoph ageal echoc ardio gram (cont rast/ 3D PRN) No observ ation record ed. [address], [address], 02/24/2024 10:11:11 03/09/19 25 03/09/2024 ECG 12-le ad No observ ation record ed. [address], [address], 03/09/2024 17:22:59 03/20/19 25 ECG 12-le ad No observ ation record ed. [address], [address], 03/20/2024 11:45:24 05/07/19 25 05/04/2024 elect beatriz montemayor am No observ ation record ed. [facility] (Medical Records) [address] [facility], [place], [address], 05/11/2024 09:28:03 05/07/19 25 05/04/2024 MRI, brain , w/o contr ast No observ ation record ed. [facility] (Medical Records) [address] [place], [address], 05/11/2024 09:28:03 05/07/19 25 05/04/2024 CT, head, w/o contr ast No observ ation record ed. [facility] (Medical Records) [address] [place], [address], 05/11/2024 09:28:04 05/07/19 25 05/04/2024 XR, shoul alla No observ ation record ed. [facility] (Medical Records) [address] [place], [address], 05/11/2024 09:28:04 05/12/19 25 05/05/2024 elect roenc ephal ogram (EEG) (PROC ) No observ ation record ed. [facility] (Medical Records) [address] [place], [address], 05/11/2024 11:29:51 06/08/19 25 06/07/2024 MRI, brain + brain stem, w/wo contr ast No observ ation record ed. [facility] [address], [place], [address], 06/07/2024 16:40:43 Result Notes None recorded. Problems Name Problem SNOMED Code Status Onset Date Resolution Date Notes Provider Name and Address Organization Details Recorded Time Atrial fibrilla tion 14776083 Active [facility] 0 11:26:13 Anxiety state 844924211 Active Payal Money ozzie [facility] 0 11:26:13 Tobacco dependen ce syndrome 14295529 Completed 06/19/2014 Antonio horne [facility] 6 12:16:17 Single major depressi ve episode Completed 10/31/2020 Removal Reason: more specific ity Kaleb Hines MD [address], [place], [address] , [facility] 1 10:22:06 Type 2 diabetes mellitus without complica tion 183188097 Completed 01/04/2014 Antonio horne, [facility] 6 12:16:17 Uncontro lled type 2 diabetes mellitus 255365598 Completed 02/28/2020 Removal Reason: now controll ed Kaleb Hines MD [address], [place], [address] , [facility] 1 18:32:40 Impotenc e of organic origin Completed 201209/06/2013 RECORDED 06/02/19 13 1:14PM BY ADVID RODRÍGUEZ MA, ANNOTATI ON/ADDEN DUM Antonio horne [facility] 6 12:16:17 Gastroes ophageal reflux disease 120869025 Active Payal [facility] 0 11:26:13 Malaise and fatigue 515372907 Completed 08/07/2016 [facility] 7 10:32:54 Influenz a vaccine needed [id number] 06 Completed 201009/06/2013 RECORDED 01/15/20 11 9:55AM BY ANTONIO SANCHEZ MD, OFFICE VISIT Antonio horne [facility] 6 12:16:17 Ulcer of heel 312739674 Active Payal horne [facility] 0 11:26:13 Adult health examinat ion Completed 201209/06/2013 RECORDED 06/02/19 13 1:14PM BY DAVID RODRÍGUEZ MA, ANNOTATI ON/ADDEN DUM Antonio horne, [facility] 6 12:16:17 Follow-u p encounte r Completed 201109/06/2013 RECORDED 01/19/20 12 9:17AM BY DAVID RODRÍGUEZ MA, MATRITAATI ON/ADDEN DUM Antonio WebsterAlenapoleonand ro null, [facility] 6 12:16:17 Glucose level outside referenc e range 498887583 Completed 201109/06/2013 RECORDED 09/25/19 12 2:57PM BY DILLAN HULL MA, IAN ON/ADDEN AUNG Saunders ro null, [facility] 6 12:16:17 Hyperlip idemia 90628781 Active Payal [place], [facility] 0 11:26:13 Essentia l hyperten deangelo 09870385 Active Payal Kuhn [place], [facility] 0 11:26:13 Impaired fasting glycemia 361168357 Completed 201109/06/2013 RECORDED 01/19/20 12 9:17AM BY DAVID RODRÍGUEZ MA, IAN ON/ADDEN AUNG Saunders ro null, [facility] 6 12:16:17 Insomnia 797939911 Active Payal K[place]n [place], [facility] 0 11:26:13 Laborato ry procedur e performe d 718536377 Completed 201209/06/2013 RECORDED 06/02/19 13 1:14PM BY DAVID RODRÍGUEZ MA, IAN ON/ADDEN AUNG Saunders ro null, [facility] 6 12:16:17 Administ ration of tetanus vaccine Completed 201109/06/2013 RECORDED 09/25/19 12 2:57PM BY DILLAN HULL MA, IAN ON/ADDEN AUNG Saunders ro null, [facility] 6 12:16:17 Idiopath ic peripher al neuropat hy 72851888 Completed 01/04/2014 Antonio jj null, [facility] 6 12:16:17 Morbid obesity 895890318 Active Payal K[place]n [place], [facility] 0 11:26:13 Osteoart hritis of knee 889789406 Completed 201109/06/2013 STORY: RIGHT KNEE, END STAGE, NEEDS TKR; RECORDED 01/19/20 12 9:17AM BY DAVID RODRÍGUEZ MA, ANNOTATI ON/ADDEN DUM Antonio jj null, [facility] 6 12:16:17 Osteomye litis of ankle AND/OR foot 77340787 Active Payalzoran Kuhn ozzie, [facility] 0 11:26:13 Pre-surg jhonatan evaluati on Completed 201109/06/2013 RECORDED 01/19/20 12 9:17AM BY DAVID RODRÍGUEZ MA, ANNOTATI ON/ADDEN DUM Antonio jj null, [facility] 6 12:16:17 Screenin g for malignan t neoplasm of colon Completed 201109/06/2013 RECORDED 09/25/19 12 2:57PM BY DILLAN HULL MA, ANNOTATI ON/ADDEN DUM Antonio jj null, [facility] 6 12:16:18 Dermatop hytosis of the body Completed 201109/06/2013 RECORDED 09/25/19 12 2:57PM BY DILLAN HULL MA, ANNOTATI ON/ADDEN DUM Antonio jj null, [facility] 6 12:16:17 Tobacco dependen ce syndrome 87723362 Completed 201109/06/2013 STORY: PT SMOKES RARELY; RECORDED 01/19/20 12 9:17AM BY DAVID RODRÍGUEZ MA, ANNOTATI ON/ADDEN DUM Antonio WebsterAlessand ro null, [facility] 6 12:16:17 Impotenc e of organic origin Completed 201209/29/2013 RECORDED 06/02/19 13 1:14PM BY DAVID RODRÍGUEZ MA, ANNOTATI ON/ADDEN DUM Antonio Alcala'Alessand ro null, [facility] 6 12:16:17 Influenz a vaccine needed [id number] 06 Completed 201009/29/2013 RECORDED 01/15/20 11 9:55AM [...] 12:16:17 Glucose level outside referenc e range 102895482 Completed 201109/29/2013 RECORDED 09/25/19 12 2:57PM BY DILLAN HULL MA, ANNOTATI ON/ADDEN DUM Antonio Alcala'Alesskeegan ro null, [facility] 6 12:16:17 Impaired fasting glycemia 467345764 Completed 201109/29/2013 RECORDED 01/19/20 12 9:17AM BY DAVID RODRÍGUEZ MA, ANNOTATI ON/ADDEN DUM Antonio Alcala'Alessand ro null, [facility] 6 12:16:17 Laborato ry procedur e performe d 032961738 Completed 201209/29/2013 RECORDED 06/02/19 13 1:14PM BY DAVID RODRÍGUEZ MA, ANNOTATI ON/ADDEN DUM Antonio WebsterAlessand ro null, [facility] 6 12:16:17 Administ ration of tetanus vaccine Completed 201109/29/2013 RECORDED 09/25/19 12 2:57PM BY DILLAN HULL MA, ANNOTATI ON/ADDEN DUM Antonio WebsterAlessand ro null, [facility] 6 12:16:17 Osteoart hritis of knee 132156590 Completed 201109/29/2013 STORY: RIGHT KNEE, END STAGE, [...] DAVID RODRÍGUEZ MA, ANNOTATI ON/ADDEN DUM Antonio WebsterAlesskeegan ro null, [facility] 6 12:16:17 Influenz a vaccine needed [id number] 06 Completed 201009/30/2013 RECORDED 01/15/20 11 9:55AM [...] DAVID RODRÍGUEZ MA, ANNOTATI ON/ADDEN DUM Antonio WebsterAlesskeegan ro null, [facility] 6 12:16:17 Glucose level outside referenc e range 849908381 Completed 201109/30/2013 RECORDED 09/25/19 12 2:57PM BY DILLAN HULL MA, IAN ON/ADDEN DUM Antonio Alcala'Alessand ro null, [facility] 6 12:16:17 Impaired fasting glycemia 421910628 Completed 201109/30/2013 RECORDED 01/19/20 12 9:17AM BY DAVID RODRÍGUEZ MA, MARTITAATI ON/ADDEN DUM Antonio WebsterAlessand ro null, [facility] 6 12:16:17 Laborato ry procedur e performe d 765653135 Completed 201209/30/2013 RECORDED 06/02/19 13 1:14PM BY DAVID RODRÍGUEZ MA, ANNOTATI ON/ADDEN DUM Antonio Alcala'Alessand ro null, [facility] 6 12:16:17 Administ ration of tetanus vaccine Completed 201109/30/2013 RECORDED 09/25/19 12 2:57PM BY DILLAN HULL MA, IAN ON/ADDEN DUM Antonio Saunders ro null, [facility] 6 12:16:17 Osteoart hritis of knee 700575755 Completed 201109/30/2013 STORY: RIGHT KNEE, END STAGE, [...] DILLAN HULL MA, IAN ON/ADDEN DUM Antonio Saunders ro null, [facility] 6 12:16:18 Dermatop hytosis of the body Completed 201109/30/2013 RECORDED 09/25/19 12 2:57PM BY DILLAN HULL MA, IAN ON/ADDEN DUM Antonio Saunders ro null, [facility] 6 12:16:17 Rapid atrial fibrilla tion 674070519 Completed 06/19/2014 Antonio horne, [facility] 6 12:16:17 Dyspnea on exertion 76039923 Active Payal horne, [facility] 0 11:26:13 Cellulit is of toe 32300668 Completed 06/19/2014 Antonio horne, [facility] 6 12:16:17 Secondar y peripher al neuropat hy 538924 Active Payal horne, [facility] 0 11:26:13 Neuropat hy due to diabetes mellitus 066441731 Active Payal horne, [facility] 0 11:26:13 Coronary atherosc lerosis 560643526 Active mild, seen on Cardiac cath Payal horne, [facility] 0 11:26:13 Necrobio sis lipoidic a diabetic orum 26636866 Active [facility], [facility] 0 11:26:13 Degenera tion of lumbar interver tebral disc 93642491 Active Payal horne, [facility] 0 11:26:13 Disorder of nervous system due to diabetes mellitus 675642101 Active [facility], [facility] 0 11:26:13 Ex-smoke r 4849147 Active Payalzoran Kuhn [facility] 0 11:26:13 Liver enzymes outside referenc e range 629686787 Active Payalzoran Kuhn [facility] 0 11:26:13 Increase d frequenc y of urinatio n 548751569 Completed 08/07/2016 Radha Miles [facility] 7 10:32:51 Obstruct susana sleep apnea syndrome 07398405 Active Payal horne, [facility] 0 11:26:13 [facility]rosc [facility]erosis [facility] 11:26:13 On examinat ion - Amputate d right below knee Active 2016 Uma Lopez null, [facility] 1 09:48:08 Arthriti s 5617564 Active Payalzoran horne, [facility] 0 11:26:13 Hyperten sive disorder 17336663 Active Payalzoran Kuhn null, [facility] 0 11:26:13 Smoker 86302115 Active Payal Money null, [facility] 0 11:26:13 Type 2 diabetes mellitus 32639607 Completed 10/31/2020 Removal Reason: more complica mell Kaleb Hines MD [address], [place], [address] , [facility] 1 10:21:51 Hypercho lesterol emia 57211310 Completed 10/31/2020 Removal Reason: Sarah Hines MD [address], [place], [address] , [facility] 1 10:21:28 Tinea corporis 48226689 Active 2019 Kaleb Hines MD [address], [place], [address] , [facility] 0 11:32:34 Impingem ent syndrome of right shoulder region 34248049313 9102 Active 2019 Injected at [facility]OS Kaleb Hines MD [address], [place], [address] , [facility] 0 10:17:22 Amputate d right lower limb below knee 403589285 Completed 201605/08/2020 Uma Lopez null, [facility] 1 09:50:50 Amputate d right lower limb below knee 513622351 Active 2016 Uma Lopez null, [facility] 1 09:50:50 Chronic pain syndrome 672359263 Active 2021 Kaleb Hines MD [address], [place], [address] , [facility] 2 12:42:07 Pain of knee region 3412028805 Active 2021 Left knee pain; seen at [facility] Kaelb Hines MD [address], [place], [address] , [facility] 2 17:03:59 Upper gastroin testinal bleeding 20989084 Active 2023 Admitted to [facility] for fluid resuscit ation. Secondar y to gastric ulcer after polypect ic EGD 1 week prior. Kaleb Hines MD [address], [place], [address] , [facility] 4 11:42:51 Iron deficien cy anemia 49067134 Active 2024 Kaleb Hines MD [address], [place], [address] , [facility] 5 12:44:07 Drug-ind uced hypokale amaya 924060163 Completed 202405/11/2024 Removal Reason: [facility] and had hypokalm ia. Stopped chlortha lidone. Jurgen Gill MD [address], [place], [address] , [facility] 5 07:16:55 Seizure disorder 876293777 Active 2024 No clear etiology Normal MRI and EEG On meds and followed by Dr Pereyra. Kaleb Hines MD [address], [place], [address] , [facility] 5 12:36:48 Problem Notes None recorded. Procedures Surgical History Date Name Laterality Status Provider Name and Address Organization Details Recorded Time 01/27/20 24 Chronic Pain Assessment completed Dillan de luna MA [facility] 01/27/2024 14:00:47 01/07/20 24 Perq clsr tcat l atr apndge completed Kaleb Hines MD [address] [address], [place], [address], [facility] 01/16/2024 15:22:05 10/28/19 24 Colonoscopy completed Светлана Rocha [facility] 11/03/2023 08:55:11 10/28/19 24 Egd diagnostic brush [...] 21 Drain thigh/knee lesion completed Uma Lopez [facility] 11/21/2020 13:50:06 [...] Chronic Pain Assessment completed Nazia Milian MA [facility] 05/13/2016 11:19:22 11/22/19 15 Other completed Radha Miles MA [facility] 11/27/2014 09:50:04 02/15/20 14 Cardioversion electric ext completed Hugo Sheila [facility] 06/19/2014 09:02:19 02/23/19 14 cholecystectomy completed Kaleb Hines MD [address] [facility] [address] [facility], [place], [address], [facility] 10/27/2019 11:29:13 03/07/19 12 EGD completed Uma Lopez [facility] 08/07/2015 16:21:39 02/23/18 97 excision of uvula completed Kaleb Hines MD [address] [facility] [address], [place], [address], [facility] 10/27/2019 11:29:47 Imaging Results Imaging Date Name Status LastModified by Organization Details LastModified Time 01/06/2024 H&P completed [address], [address], 01/06/2024 17:33:34 01/07/2024 discharge summary completed [email or web address] [address], [address], 01/09/2024 08:31:45 01/08/2024 ECG 12-lead completed [address], [address], 01/10/2024 13:32:35 02/22/2024 H&P completed [address], [address], 02/24/2024 10:11:10 02/22/2024 procedures completed [facility] [address] [place], [address], 02/24/2024 10:11:11 02/22/2024 transesophageal echocardiogram (contrast/3D PRN) completed [address], [address], 02/24/2024 10:11:11 03/09/2024 ECG 12-lead completed [address], [address], 03/09/2024 17:22:59 03/20/2024 ECG 12-lead completed [address], [address], 03/20/2024 11:45:24 05/04/2024 electrocardiogram completed [facility] (Medical Records) [address] [place], [address], 05/11/2024 09:28:03 05/04/2024 MRI, brain, w/o contrast completed [facility] (Medical Records) [address] [place], [address], 05/11/2024 09:28:03 05/04/2024 CT, head, w/o contrast completed [facility] (Medical Records) [address] [place], [address], 05/11/2024 09:28:04 05/04/2024 XR, shoulder completed [facility] (Medical Records) [address] [place], [address], 05/11/2024 09:28:04 05/05/2024 electroencephalogram (EEG) (PROC) completed [facility] (Medical Records) [address] [facility] [place], [address], 05/11/2024 11:29:51 06/07/2024 MRI, brain + brain stem, w/wo contrast completed [facility] [address] [facility] [address], [place], [address], 06/07/2024 16:40:43 Procedure Notes None recorded. Medical Equipment None Reported. Allergies Allergen ID Allergen Name Allergen Category Reaction Reaction Severity Criticality Documentation Date Start Date Code Code System Note Provider Name and Address Organization Details Recorded Time 3031 erythromy sameer medicatio n angioedem a Not available Not available 09/06/20132012 4053 RxNorm JILL [facility] 6 09:20:19 Medications Name Sig Start Date Stop Date Status Note LastModified by Organization Details LastModified Time multivita min tablet Take 1 tablet every day by oral route. active Not Available Not Available No t Available celecoxib 200 mg capsule TAKE 1 CAPSULE BY MOUTH EVERY DAY WITH MEALS 11/05 completed Not Available Not Available Not Available Santyl 250 unit/gram topical ointment active Not Available Not Available Not Available amoxicill in 500 mg capsule TAKE 4 CAPSULES BY MOUTH 1 HOUR BEFORE APPOINTM ENT active Not Available Not Available No t Available Aspirin Child 81 mg chewable tablet [...] TAKE 1 TABLET BY MOUTH ONCE DAILY 05/09 completed Not Available Not Available Not Available [...] Not Available Not Available Not Avai lable levetirac etam 500 mg tablet TAKE 1 TABLET BY MOUTH TWICE DAILY active Not Available Not Available No t Available senna 8.6 mg tablet Take 2 tablets every day by oral route as needed. 06/10 completed Not Available Not Available Not Available metoprolo l succinate ER 200 mg tablet,ex tended release 24 hr TAKE 1 TABLET BY MOUTH EVERY DAY active Not Available Not Available No t Available prednison e 20 mg tablet TAKE 1 TABLET BY MOUTH EVERY DAY WITH MEALS FOR 5 DAYS 05/24 completed Not Available Not Available Not Available fluoroura cil 5 % topical cream 10/07 completed Not Available Not Available Not Available fluoxetin e 10 mg tablet 1 tablet for 1 week, then 1/2 tablet for 1 week then 1/2 tablet for 2 weeks then stop. 2024 active 1 tab qd x 1 week, 0.5 tab qd x 1 week, then 0.5 tab qod x 2 weeks Not Available Not Available Not Available metoprolo [...] day by oral route for 90 days. 07/06 completed Not Available Not Available Not Available simvastat in 80 mg tablet Take [...] 1 TABLET BY MOUTH TWICE DAILY UNTIL FINISH 05/09 completed Not Available Not Available Not Available [...] completed Not Available Not Available Not Available tamsulosi n 0.4 mg capsule TAKE 1 CAPSULE BY MOUTH AT BEDTIME active Not Available Not Available No t Available gabapenti n 800 mg tablet THREE [...] TABLET BY MOUTH EVERY DAY 2024 active weaning from med Not Available Not Available Not Available clotrimaz ole-betam ethasone 1 %-0.05 % topical [...] lorazepam 1 mg tablet TAKE 1 TABLET PRIOR TO MRI NEEDED active Not Available Not Available No t Available Viagra 100 mg tablet Take 1 [...] route as needed for 30 days. active FOR ROSACEA Not Available Not Available Not Available doxycycli ne hyclate 100 mg tablet TAKE 1 TABLET BY MOUTH TWICE DAILY 01/28 completed Not Available Not Available Not Available finasteri de 5 mg tablet TAKE 1 TABLET BY MOUTH DAILY active Not Available Not Available No t Available naproxen 500 mg tablet TAKE 1 TABLET BY MOUTH TWICE DAILY WITH FOOD 10/31 completed Not Available Not Available Not Available amoxicill in 875 mg-potass ium clavulana te 125 mg tablet TAKE 1 TABLET BY MOUTH TWICE DAILY UNTIL ALL TAKEN 06/25 completed Not Available Not Available Not Available oxycodone 5 mg tablet TAKE 1 TABLET BY MOUTH THREE TIMES DAILY active Not Available Not Available No t Available valsartan 160 mg tablet TAKE 1 TABLET [...] completed RECORDED 09/26/19 11 5:35PM BY FELICITA WOODS ANNOTASHLEY ON/ASHVIN HORAN; Not Available Not Available Not [...] TAKE 1 TABLET BY MOUTH ONCE DAILY 05/09 completed Not Available Not Available Not Available [...] completed Not Available Not Available Not Available [employer] Blood Glucose Monitorin g System 03/12 completed [...] Updated DateTime 4 193.04 cm 39.8 kg/m2 581435. 7 g 96 /min 98 % 98 % 97.9 [degF] 7 162 mm[Hg] 83 mm[Hg] Dillan alexander MA [facility] 4 13:57:24 Date Recorded Body height Body mass index (BMI) Body weight Heart rate Oxygen saturation Oxygen saturation in Arterial blood by Pulse oximetry Body temperature Systolic blood pressure Diastolic blood pressure Provider Name and Address Organization Details Last Updated DateTime 5 193.04 cm 39.6 kg/m2 703339. 52 g 100 /min 98 % 98 % 96.4 [degF] 136 mm[Hg] 93 mm[Hg] Sigrid Carrillo MA [facility] 5 10:15:53 Date Recorded Body height Body mass index (BMI) Body weight Heart rate Oxygen saturation Oxygen saturation in Arterial blood by Pulse oximetry Body temperature Systolic blood pressure Diastolic blood pressure Provider Name and Address Organization Details Last Updated DateTime 5 193.04 cm 39 kg/m2 225024. 36 g 94 /min 99 % 99 % 98.3 [degF] 126 mm[Hg] 79 mm[Hg] Sultana Jackson LPN [facility] 5 15:04:59 Date Recorded Body height Body mass index (BMI) Body weight Heart rate Oxygen saturation Oxygen saturation in Arterial blood by Pulse oximetry Body temperature Systolic blood pressure Diastolic blood pressure Provider Name and Address Organization Details Last Updated DateTime 5 193.04 cm 37.6 kg/m2 580999. 32 g 103 /min 98 % 98 % 98.2 [degF] 144 mm[Hg] 78 mm[Hg] Dillan alexander MA [facility] 5 11:21:58 Date Recorded Systolic blood pressure Diastolic blood pressure Provider Name and Address Organization Details Last Updated DateTime 06/10/2024 126 mm[Hg] 82 mm[Hg] Kaleb Hines MD [address], [address], [facility] 06/10/2024 11:53:03 Social History Question Answer Notes LastModified by Organizat ion Details LastModified Time Tobacco Smoking Status Former Smoker quit around 2009 Louisa horne, [facility] 09/25/2014 14:15:01 Do You Have An Advance [...] not available 01/28/2022 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 11-15yearssin [email or web address] Information not available 09/16/2021 Live Alone [...] Health Care Provider Or Emergency Responder? No [email or web address] Information not available 10/27/2019 To The Best Of Your Knowledge Have You Been In Close Proximity To Any Individual Who Tested Positive For COVID-19? No Information not available 10/27/2019 Have You Recently Traveled To A COVID-19 High Risk Area Or Gathering In The Last 10 Days? No [email or web address] Information not available 05/24/2020 What Was The Date Of Your Most Recent Tobacco Screening? 06/10/2024 Information not available 06/10/2024 How Many Children Do You Have? 2 1 Son And 1 Daughter [email or web address] Information not available 10/27/2019 What Is Your [...] Used Smokeless Tobacco? Never Used Smokeless Tobacco [email or web address] Information not available 11/24/2019 How Much Tobacco [...] He is youngest. Medical History Condition Response Anxiety Disorder N Muscle, Joint, or Bone Problems Y Diabetes Y Heart Problems/Murmur Y Hypertension Y Immunizations Vaccine Type Date Status Note Provider Nam e and Address Organization Details Recorded Time Influenza, split virus, trivalent, preservative 4 completed [facility] 15:55:52 Influenza, split virus, quadrivalent, preservative 6 completed [facility] 07/04/2019 11:26:08 pneumococcal polysaccharide PPV23 6 completed [facility] 07/04/2019 11:26:08 DTaP, unspecified formulation [address] [facility] 11/02/2019 11:26:48 Influenza, split virus, quadrivalent, preservative 6 completed [facility]2019 11:35:08 Influenza, split virus, quadrivalent, preservative 6 [facility]2019 11:35:17 Influenza, split virus, quadrivalent, preservative 4 [facility]2019 11:35:24 Influenza, split virus, quadrivalent, preservative 3 [facility]2019 11:35:40 Influenza, split virus, quadrivalent, preservative 3 completed Payal Money null, [facility] 11/02/2019 11:35:50 Influenza, split virus, quadrivalent, preservative 0 completed Payal Money null, [facility] 11/02/2019 11:36:04 Influenza, split virus, quadrivalent, preservative 9 completed Payal Money null, [facility] 11/02/2019 11:36:22 pneumococcal, unspecified formulation 1 completed Payal Money null, [facility] 11/02/2019 11:39:18 zoster recombinant 0 completed [facility], [facility] 11/02/2019 11:39:52 zoster recombinant 0 completed [facility], [facility] 11/02/2019 11:39:57 Influenza, split virus, quadrivalent, preservative 0 completed Nazia Milian MA null, [facility] 02/28/2020 13:45:06 COVID-19, mRNA, LNP-S, PF, 30 mcg/0.3 mL dose 1 completed Dillan Sanchez MA null, [facility] 09/16/2021 15:55:52 COVID-19, mRNA, LNP-S, PF, 30 mcg/0.3 mL dose 1 completed Dillan Sanchez MA null, [facility] 09/16/2021 15:55:52 Influenza, split virus, quadrivalent, PF 1 completed Lorie Madrid MA null, [facility] 02/04/2021 10:49:53 COVID-19, mRNA, LNP-S, PF, 30 mcg/0.3 mL dose 1 completed Lorie Madrid MA null, [facility] 02/04/2021 11:14:57 Influenza, split virus, quadrivalent, PF 0 completed Dillan Sanchez JILL null, [facility] 09/16/2021 15:22:12 Hep B, adult 0 completed Dillan Sanchez JILL null, [facility] 09/16/2021 15:22:12 Influenza, split virus, quadrivalent, PF 8 completed Dillan Sanchez JILL null, [facility] [facility] 09/16/2021 15:22:12 Hep B, adult 0 completed Dillan Sanchez MA null, [facility] 09/16/2021 15:22:12 COVID-19, mRNA, LNP-S, PF, 30 mcg/0.3 mL dose, ema-sucrose 2 completed JILL Ellis, [facility] 09/16/2021 15:22:12 Hep B, adult 1 completed Dillan Sanchez JILL horne, [facility] 09/16/2021 15:22:12 COVID-19, mRNA, LNP-S, bivalent, PF, 30 mcg/0.3 mL dose 2 completed JILL Ortiz, [facility] 01/28/2022 10:19:47 Influenza, split virus, quadrivalent, PF 2 completed JILL Ortiz, [facility] 01/28/2022 10:19:47 Tdap 6 completed Not Available [facility] 03/12/2019 02:21:45 COVID-19, mRNA, LNP-S, PF, ema-sucrose, 30 mcg/0.3 mL 4 completed Dillan Sanchez MA null, [facility] 01/27/2024 13:45:40 COVID-19, mRNA, LNP-S, PF, ema-sucrose, 30 mcg/0.3 mL 3 completed Dillan Sanchez [place] null, [facility] 01/27/2024 13:45:40 Pneumococcal conjugate PCV20, polysaccharide CFZ090 conjugate, adjuvant, PF 4 completed Sultana Caporale, [employer] null, [facility] 05/09/2024 15:05:13 COVID-19, mRNA, LNP-S, PF, 50 mcg/0.5 mL 4 completed Sultana Caporale, [employer] ATTENDANT null, [facility] 05/09/2024 15:05:13 Tdap 3 completed Sultana Caporale, [employer] ATTENDANT null, [facility] 05/09/2024 15:05:13 Influenza, split virus, quadrivalent, PF 7 completed Not Available [facility] 03/12/2019 02:22:11 Td (adult), 2 Lf tetanus toxoid, preservative free, adsorbed 6 completed Payal horne, [facility] 07/04/2019 11:26:08 Influenza, split virus, trivalent, preservative 1 completed Payal horne, [facility] 07/04/2019 11:26:08 Influenza, split virus, quadrivalent, PF 3 completed Kaleb Hines MD [address], [address], [facility] 12/31/2022 12:22:40 Influenza, split virus, trivalent, PF 4 completed Kaleb Hines MD [address], [address], [facility] 11/12/2023 08:02:47 Past Encounters Encounter ID Performer Location Encounter Start Date Encounter Closed Date Diagnosis/Indication Diagnosis SNOMED-CT Code Diagnosis ICD10 Code Diagnosis Note [id number] [facility] [address] [place] [address] [address] [place] [address] 11/02/2009 00:00:00 [id number] [facility] [address] [place] [address] 02/04/2010 00:00:00 [id number] [facility] [address] [place] [address] 04/13/2010 00:00:00 [id number] [facility] [address] [place] [address] 08/30/2010 00:00:00 [id number] [facility] [address] [place] [address] 01/14/2011 00:00:00 [id number] [facility] [address] [place] [address] 03/14/2011 00:00:00 [id number] [facility] [address] [place] [address] 10/06/2011 00:00:00 [id number] [facility] [address] [place] [address] 11/04/2011 00:00:00 [id number] [facility] [address] [place] [address] 01/19/2012 00:00:00 [id number] [facility] [address] [place],[address] [place] [address] 06/01/2012 00:00:00 [id number] [facility] erce [address] [facility],[address] [place] [address] 10/26/2012 00:00:00 [id number] YOLANDA Springer Main Office [address] [place] [address] 12/21/2013 08:51:10 12/21/2013 10:02:43 Rapid atrial fibrillation [id number] he will go to ER for sxs below. he may have coronary blockage. he at least is having breakthrou gh rate on the afib and needs better control. Cardiac enzymes and possibly stress testing would be recommende d. pt has no sxs at the moment so he can drive to the ER Dyspnea on exertion 04973057 Cellulitis of toe 37275835 [id number] Antonio jj MD Main Office [address] [address] [place] [address] 01/05/2014 10:42:06 01/05/2014 11:34:07 Adult health examination [id number] Neuropathy due to diabetes mellitus 448636659 stable Atrial fibrillation 90441273 Coronary atherosclerosis 866958308 non obstructiv e CAD per DR Louie/gabino ardiac cath/dec, 2013. Anxiety state 057152812 [id number] YOLANDA Springer Main Office [address] [address] [place] [address] 06/19/2014 08:39:23 06/19/2014 09:25:48 Disorder of nervous system due to diabetes mellitus 571744753 he is ready to start a med for diabetes. f/u 3 months with a1c before appt. teletriage f/u 2 wks to check in Secondary peripheral neuropathy 650109 Atrial fibrillation 59414160 stable after cardiovers ion. Essential hypertension 43148467 well controlled [id number] Antonio jj MD Main Office [address] [address] [place] [address] 09/25/2014 14:02:11 09/25/2014 15:11:30 Disorder of nervous system due to diabetes mellitus 992180396 Endocrine impotence 769172222 Anxiety state 858702984 [id number] Nickie Garcia PA-C Main Office [address] [address] [place] [address] 11/24/2014 08:47:14 11/24/2014 09:56:29 Pre-surgery evaluation 131764864 Z01.818 Low risk for retinal surgery procedure. NO contraindi cations based on EKG and labs for next week's procedure. [id number] Antonio jj MD Main Office [address] [address] [place] [address] 05/26/2015 09:27:46 05/26/2015 10:37:38 Chronic pain 34455273 G89.29 conversati on w/Dr Geovanni FOWLER 05/25/15. Pt has Charcot joints in feet-chron ic pain . Pt agrees to limited use of opiates. 60 tabs of oxycodone should last approx 90 days [id number] Antonio jj MD Main Office [address] [place] [address] 08/03/2015 10:53:29 08/03/2015 12:06:29 Liver enzymes outside reference range 862480526 R94.5 Disorder o f nervous system due to diabetes mellitus 597237275 E08.49 Increased frequency of urination 426810823 R35.0 Chronic pain 06132869 G8 9.29 conversati on w/Dr Geovanni FOWLER 05/25/15. Pt has Charcot joints in feet-chron ic pain . Pt agrees to limited use of opiates. 60 tabs of oxycodone should last approx 90 days [id number] Antonio jj MD Main Office [address] [address] 10/05/2015 08:30:31 10/05/2015 09:49:30 Adult health examination 167918150 Z00.00 Uncontroll ed type 2 diabetes mellitus 727663539 E11.65 Essential hypertension 82136322 I10 Chronic pain 85952952 G8 9.29 conversati on w/Dr Geovanni FOWLER 05/25/15. Pt has Charcot joints in feet-chron ic pain . Pt agrees to limited use of opiates. 60 tabs of oxycodone should last approx 90 days Anxiety state 770457102 F41.1 Body mass index 40+ - severely obese 818207123 Z68.41 [id number] Antonio jj MD Main Office [address] [address] 02/05/2016 10:42:32 02/05/2016 11:32:58 Neuropathy due to diabetes mellitus 341117529 E11.40 stable Essential hypertension 94396980 I10 cont current meds Chronic pain 82247069 G8 9.29 conversati on w/Dr Geovanni FOWLER 05/25/15. Pt has Charcot joints in feet-chron ic pain . Pt agrees to limited use of opiates. 60 tabs of oxycodone per month Body mass index 40+ - severely obese 438941367 Z68.41 E66.01 Anxiety state 304833406 F41.1 [id number] Antonio jj MD Main Office [address] [address] 05/13/2016 10:58:32 05/13/2016 11:59:18 Chronic pain 24403377 G89.29 conversati on w/Dr Geovanni FOWLER 05/25/15. Pt has Charcot joints in feet-chron ic pain . Pt agrees to limited use of opiates. 60 tabs of oxycodone per month Neuropathy due to diabetes mellitus 770126092 E11.40 stable Body mass index 40+ - severely obese 671851962 E66.01 Fatigue 69561309 R53.83 [id number] Antonio jj MD Main Office [address] [address] 08/07/2016 10:42:23 08/07/2016 11:32:02 Chronic pain 51698694 G89.29 conversati on w/Dr Geovanni FOWLER 05/25/15. Pt has Charcot joints in feet-chron ic pain . Pt agrees to limited use of opiates. 60 tabs of oxycodone per month Anxiety state 461903053 F41.1 Well contr olled type 2 diabetes mellitus 718611689 E11.9 Body mass index 40+ - severely obese 592376701 Z68.41 E66.01 [id number] Antonio jj MD Main Office [address] [address] 10/28/2016 10:48:49 10/28/2016 11:24:37 Chronic pain 76323129 G89.29 conversati on w/Dr Geovanni FOWLER 05/25/15. Pt has Charcot joints in feet-chron ic pain . Pt agrees to limited use of opiates. 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 Pt has Charcot joints in feet-chron ic pain . Pt agrees to limited use of opiates. 60 tabs of oxycodone per month Lightheadedness 35300469 8 R42 Essential hypertension 90594580 I10 change bp meds/ pt on half metoprolol and will be start on half of valsartan 80 [id number] Antonio jj MD Main Office [address] [address] 03/12/2017 14:47:45 03/12/2017 16:09:22 Neuropathy due to diabetes mellitus 593880429 E11.40 stable Chronic pain 92724750 G8 9.29 conversati on w/Dr Geovanni FOWLER 05/25/15. Pt has Charcot joints in feet-chron ic pain . Pt agrees to limited use of opiates. Anxiety state 265006710 F41.1 [id number] Antonio jj MD Main Office [address] [address] 06/22/2017 13:36:28 06/22/2017 14:55:58 Chronic pain 12788151 G89.29 conversati on w/Dr Geovanni FOWLER 05/25/15. Pt has Charcot joints in feet-chron ic pain . Pt agrees to limited use of opiates. Uncontroll ed type 2 diabetes mellitus 961576112 E11.65 [id number] Kaleb Hines MD Main Office [address] [address] 10/06/2017 12:53:28 10/06/2017 14:20:54 Chronic pain 80596073 G89.29 He has joints pains in his knees and LBP. Insomnia 471423562 G47.0 0 Has phantom leg pains at night Anxiety state 915968683 F41.1 Not a constant problem. Uses lorazepam prn. Degenerati on of lumbar intervertebral disc 47896679 M51.36 Atrial fibrillation 4943 6004 I48.91 May be having an ablation in the near future. History of amputation of right leg through tibia and fibula 8694692605 19101 Z89.511 Doing well with his prosthesis . Essential hypertension 76627325 I10 His BP is running a lttle high today but I will not make any changes since this is my first time meeting him which may be affecting his BP. [id number] Kaleb Hines MD Main Office [address] [facility] [address] [place] [address] 01/05/2018 14:41:16 01/05/2018 16:13:53 Chronic pain 27137098 G89.29 He has joints pains in his knees and LBP. Meds help. 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 We discussed stopping his diabetes meds but he would like to continue for 3 more months and see if he can lose more weight. Atrial fibrillation 4943 6004 I48.91 Had ablation and is now in sinus rhythm. Followed by cardiology . [id number] Kaleb Hines MD Main Office [address] [facility] [address] [place] [address] 04/06/2018 09:48:42 04/06/2018 10:53:27 Neuropathy due to diabetes mellitus 172087930 E11.40 Excellent A1C. He would like to remain on meds. Chronic pain 58432496 G8 9.29 He has joints pains in his knees and LBP. Meds help. Insomnia 605509986 G47.0 0 Has phantom leg pains at night. He understand s that he needs to wean from lorazepam Atrial fibrillation 4943 6004 I48.91 Had ablation in 2018 and is now in sinus rhythm. Followed by cardiology . History of amputation of right leg through tibia and fibula 7799304367 19101 Z89.511 Doing well with his prosthesis . Body mass index 40+ - severely obese 982114023 E66.01 Z68.41 [id number] Kaleb Hines MD Main Office [address] [place] [address] 07/01/2018 10:43:34 07/01/2018 11:49:43 Adult health examination 776759075 Z00.00 Due for a colonoscop y this year (2018) He is scheduling it. Chronic pain 91394132 G8 9.29 He has joints pains in his knees and LBP. Meds help. Anxiety state 557959707 F41.1 Not a constant problem. Uses lorazepam prn. [id number] Kaleb Hines MD Main Office [address] [place] [address] 09/29/2018 09:58:28 09/29/2018 10:39:54 Chronic pain syndrome 555068310 G89.4 Chronic pain 99930690 G8 9.29 He has joints pains in his knees and LBP. Meds help. 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 We discussed stopping his diabetes meds but he would like to continue for 3 more months and see if he can lose more weight. Atrial fibrillation 4943 6004 I48.91 Had ablation in 2018 and is now in sinus rhythm. Followed by cardiology . Essential hypertension 71737088 I10 Good control; continue current mgmt [id number] Kaleb Hines MD Main Office [address] [place] [address] 12/30/2018 13:30:45 12/30/2018 14:23:29 Chronic pain 47140206 G89.29 He has joints pains in his knees and LBP. Meds help. 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 We discussed stopping his diabetes meds but he would like to continue for 3 more months and see if he can lose more weight. Degenerati on of lumbar intervertebral disc 76978108 M51.36 Essential hypertension 47862022 I10 Good control; continue current mgmt On examina tion - Amputated right below knee 657160385 Z89.511 [id number] Kaleb Hines MD Main Office [address] [address] [place] [address] 03/31/2019 13:52:04 03/31/2019 15:13:29 Chronic pain syndrome 559810617 G89.4 No changes in meds. Chronic pain 39594372 G8 9.29 He has joints pains in his knees and LBP. Meds help. Insomnia 293271430 G47.0 0 Has phantom leg pains at night. He is requesting lorazepam but understand s that we are avoiding benzos. Will try neurontin 300 and may increase to 600. Difficulty swallowing 28 1385965 R13.10 He will be seeing Dr Tate next week to schedule a colonoscop y. We will let him know that he has been having trouble swallowing . [id number] Kaleb Hines MD [facility] [address] [facility][1] [address] [place] [address] 07/04/2019 08:30:58 07/04/2019 10:52:31 Chronic pain 99638816 G89.29 He has joints pains in his knees and LBP. Meds help. Essential hypertension 61311209 I10 Good control; continue current mgmt Insomnia 668796568 G47.0 0 Sleep has improved and he is no longer taking any meds for this. 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 DM under control after 50 lb weight loss. [id number] Kaleb Hines MD Main Office [address] [facility] [address] [place] [address] 10/27/2019 10:47:39 10/27/2019 11:50:46 Adult health examination 117974984 Z00.00 Had a colonoscop y done in April and due again in 2024. Type 2 seymour betes mellitus 09979925 E11.9 A1C still good at 6.1 so will not restart meds. He will intensify lifestyle changes and we will recheck in 3 months. Degenerati on of lumbar intervertebral disc 38814245 M51.36 Chronic problem. Has a narcotics contract. Major depr essive disorder 383240629 F32.0 Stable on meds. Psoriasis 0499773 L40.9 Atrial fibrillation 4943 6004 I48.91 Had ablation in 2018 and is now in sinus rhythm. Followed by cardiology . On examina tion - Amputated right below knee 603587432 Z89.511 [id number] Kaleb Hines MD Main Office [address] [address] [place] [address] 11/24/2019 10:28:50 11/24/2019 12:03:18 Tinea corporis 01686183 B35.4 Did not respond to steroid cream will do course of PO antifungal [id number] Kaleb Hines MD Main Office [address] [address] [place] [address] 02/28/2020 13:25:00 02/28/2020 14:15:53 Essential hypertension 72885183 I10 Good control; continue current mgmt Chronic pain 02788473 G8 9.29 He has joints pains in his knees and LBP. Meds help. Degenerati on of lumbar intervertebral disc 32484127 M51.36 Chronic problem. Has a narcotics contract. Type 2 seymour betes mellitus 90922165 E11.9 A1C still good at 6.0 so will not restart meds. He will intensify lifestyle changes and we will recheck in 3 months. He has been off all diabetes meds for more than a year. Major depr essive disorder 174881146 F32.0 Stable on meds. Atrial fibrillation 4943 6004 I48.91 Had ablation in 2018 and is back in afib. Followed by cardiology in the past but would like to be followed here for now. He is currently stable and stable on meds. [id number] Pepe Gregory MD Main Office [address] [place] [address] 05/08/2020 10:59:14 05/08/2020 12:20:22 Cyst of skin 758075580 L72.9 -DDx include lipoma, abcess, and less [...] ill also get U/S to evaluate the lesion.-Danny davis advised but not limted to if he:has new or worse symptoms of infection, such as: Increased pain, swelling, warmth, or redness. Red streaks leading from the area. Pus draining from the area and/or fever to seek immediate medical attention. Essential hypertension 18669803 I10 BP likley elevated due to pain will hold change in medication s for now. [id number] Kaleb Hines MD Main Office [address] [facility] [address] [place] [address] 05/24/2020 09:55:46 05/24/2020 10:51:06 Chronic pain syndrome 681140293 G89.4 No changes in meds. Atrial fibrillation 4943 6004 I48.91 Had ablation in 2018 and is back in afib. Followed by cardiology in the past but would like to be followed here for now. He is currently stable and stable on meds. Essential hypertension 49808339 I10 Good control; continue current mgmt Degenerati on of lumbar intervertebral disc 08405751 M51.36 Chronic problem. Has a narcotics contract. [id number] Kaleb Hines MD Main Office [address] [facility] [address] [place] [address] 08/28/2020 10:21:42 08/28/2020 10:52:17 Chronic pain syndrome 204825314 G89.4 No changes in meds. Atrial fibrillation 4943 6004 I48.91 Had ablation in 2018 and is back in afib. Followed by cardiology in the past but would like to be followed here for now. He is currently stable and stable on meds. Essential hypertension 95014165 I10 Good control; continue current mgmt [id number] Kaleb Hines MD [facility] 36[address] [facility][1] [address] [place] [address] 09/05/2020 11:59:42 09/05/2020 15:58:05 Nausea and vomiting 33977278 R11.2 patient with ? food poisoning after [...] body aches. Exposure t o viral disease 7794312802 22647 Z03.818 isolate, hydration, rest. [id number] Kaleb Hines MD Main Office [address] [facility] [address] [place] [address] 10/31/2020 09:52:12 10/31/2020 10:51:27 Adult health examination 797051934 Z00.00 Had a colonoscop y done in April 2019 and due again in 2024. He is UTD with vaccines including COVID and shingles. Amputated right lower limb below knee 376438576 Z89.511 Followed by specialist for his prosthesis and shoes. Anxiety state 990725124 F41.1 Not a constant problem. Uses lorazepam prn. Atrial fibrillation 4943 6004 I48.91 Had ablation in 2018 and is back in afib. Followed by cardiology in the past but now followed here. He is currently stable on meds. Degenerati on of lumbar intervertebral disc 12475012 M51.36 Chronic problem. Has a narcotics contract. Essential hypertension 69326212 I10 Good control; continue current mgmt Hyperlipidemia 14216132 E78.5 Insomnia 998208732 G47.0 0 Under control with gabapentin at bedtime. Neuropathy due to diabetes mellitus 353275383 E11.40 Excellent A1C. He would like to remain on meds. Body mass index 40+ - severely obese 759206704 E66.01 Pain in left knee 359610 3261 75279 M25.562 Recent infection and hematoma/s welling has left him unable to ambulate more than a few feet and also has difficulty standing. [id number] Kaleb Hines MD Main Office [address] [facility] [address] [place] [address] 02/04/2021 10:34:20 02/04/2021 11:24:52 Chronic pain 86622563 G89.29 He has joints pains in his knees and LBP. Meds help. Neuropathy due to diabetes mellitus 900541391 E11.40 Excellent A1C. He would like to remain on meds. Essential hypertension 30256317 I10 Good control; continue current mgmt Amputated right lower limb below knee 336716789 Z89.511 Followed by specialist for his prosthesis and shoes. [id number] Kaleb Hines MD Main Office [address] [place] [address] 05/06/2021 11:22:22 05/06/2021 12:01:08 Chronic pain syndrome 657102741 G89.4 No changes in meds. 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 DM under control after 50 lb weight loss. Atrial fibrillation 4943 6004 I48.91 Had ablation in 2018 and is back in afib. Followed by cardiology in the past but now followed here. He is currently stable on meds. Essential hypertension 09507659 I10 Good control; continue current mgmt [id number] Kaleb Hines MD Main Office [address] [place] [address] 08/05/2021 10:18:09 08/05/2021 11:03:32 Chronic pain syndrome 133331807 G89.4 No changes in meds. Amputated right lower limb below knee 139905349 Z89.511 Followed by specialist for his prosthesis and shoes. Osteoarthr itis of left knee joint 9293459454 42654 M17.12 Will be having a knee replacemen t done in October. Atrial fibrillation 4943 6004 I48.91 Had ablation in 2018 and is back in afib. Followed by cardiology in the past but now followed here. He is currently stable on meds. Essential hypertension 53633918 I10 Good control; continue current mgmt [id number] Pepe Gregory MD Main Office [address] [place] [address] 09/16/2021 15:15:15 09/16/2021 16:10:47 Cyst of skin 959277503 L72.9 - abscess-pa tient agreed to aspiration [...] to seek immediate medical attention. Essential hypertension 86355231 I10 BP likley elevated due to pain will hold change in medication s for now.Have him follow up with PCP he is asymptomat ic, red flags discussed. Low sodium diet discussed Counseled on medication adherence Counseled on diet/exerc ise Advised to keep BP daily BP log and technique counseled. [id number] Kaleb Hines MD Main Office [address] [facility] [address] [facility] [place] [address] 10/02/2021 10:50:22 10/02/2021 12:03:06 Hypertensive disorder 88275600 I10 Running high. He will take metoprolol [...] stable on meds. Chronic pain syndrome 37 0256358 G89.4 No changes in meds. Pain of knee region 1003 296608 M25.569 replacemen t scheduled for the end of the month by MALCOLM. [id number] Kaleb Hines MD Main Office [address] [facility] [address] [facility] [place] [address] 01/28/2022 10:13:05 01/28/2022 11:07:22 Chronic pain syndrome 164006422 G89.4 Stable on current mgmt with no SE's. Major depr essive disorder 902392090 F32.0 He ran out of meds and hasn't been taking anything for 4 weeks. Would like to restart. History of left total knee replacement 8582256203 207212 Z96.652 Surgery done 10/23/21 followed by PT. Much less pain and better movement. Degenerati on of lumbar intervertebral disc 45769985 M51.36 Chronic problem. Has a narcotics contract. [id number] Kaleb Hines MD Main Office [address] [facility] [address] [place] [address] 06/25/2022 09:30:22 06/25/2022 10:16:38 Adult health examination 718606765 Z00.00 Had a colonoscop y done in April 2019 and due again in 2024. He is UTD with vaccines including COVID and shingles. Chronic pain syndrome 37 3883030 G89.4 Stable on current mgmt with no SE's. Neuropathy due to diabetes mellitus 660034506 E11.40 A1C has been increasing . He would like to work on lifestyle changes before deciding on restarting meds. Will see him back in 3 months. Obstructiv e sleep apnea syndrome 82792792 G47.33 Wears a machine every night and sleeping well. Hyperlipidemia 85906858 E78.5 Degenerati on of lumbar intervertebral disc 06091010 M51.36 Chronic problem. Has a narcotics contract. Atrial fibrillation 4943 6004 I48.91 Had ablation in 2018 and is back in afib. Followed by cardiology in the past but now followed here. He is currently stable on meds. Amputated right lower limb below knee [id number] Z89.511 Followed by specialist for his prosthesis and shoes. He requires a well-fitte d prosthesis to help him to maintain safe ambulation . Type 2 seymour betes mellitus 53642754 E11.9 A1C has been increasing . He would like to work on lifestyle changes before deciding on restarting meds. Will see him back in 3 months. Major depr essive disorder 542865612 F32.0 He ran out of meds and hasn't been taking anything for 4 weeks. Would like to restart. Body mass index 40+ - severely obese 287549396 E66.01 Nocturia 362371500 R35.1 [id number] Kaleb Hines MD Main Office [address] [facility] [address] [place] [address] 10/07/2022 13:20:58 10/07/2022 14:11:40 Chronic pain syndrome 864113384 G89.4 Stable on current mgmt with no SE's. 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 DM has been under control after 50 lb weight loss but his A1C is slowly increasing as is his weight. Will add ozempic which should help with both. Anxiety state F41.1 Not a constant problem. Uses lorazepam prn. Amputated right lower limb below knee 571199898 Z89.511 Followed by specialist for his prosthesis and shoes. He requires a well-fitte d prosthesis to help him to maintain safe ambulation . [id number] Kaleb Hines MD Main Office [address] [facility] [address] [place] [address] 12/31/2022 08:58:28 12/31/2022 10:06:48 Disorder of nervous system due to diabetes mellitus 131033784 E11.49 DM has been under control after 50 lb weight loss but his A1C was slowly increasing . We added ozempic which has helped with both his weight (losing 22 lbs) and his A1C which went down to 5.6, the lowest it has been in years. Hyperlipidemia 35165414 E78.5 Needs infl uenza immunization 907457442 Z23 Chronic pain syndrome 37 5681880 G89.4 He has joints pains in his knees and LBP. Meds help. Stable on current mgmt with no SE's. Pain of le ft ankle joint 7113675240 0082295 M25.572 Pain of bi lateral hip joints [id number] 4467296 M25.551 M25.552 Anxiety state 906494021 F41.1 Not a constant problem. Uses lorazepam prn. [id number] Kaleb Hines MD Main Office [address] [facility] [address] [place] [address] 04/17/2023 08:38:12 04/17/2023 09:36:13 Disorder of nervous system due to diabetes mellitus 138681115 E11.49 DM has been under control after 50 lb weight loss but his A1C was slowly increasing . We added ozempic which has helped with both his weight (losing 22 lbs) and his A1C which is currently at 5.7. Amputated right lower limb below knee 285569929 Z89.511 Followed by specialist for his prosthesis and shoes. He requires a well-fitte d prosthesis to help him to maintain safe ambulation . Atrial fibrillation 4943 6004 I48.91 Had ablation in 2018 and is back in afib. Followed by cardiology in the past but now followed here. He is currently stable on meds. Chronic pain syndrome 37 1578987 G89.4 He has joints pains in his knees and LBP. Meds help. Stable on current mgmt with no SE's. Obstructiv e sleep apnea syndrome 88106376 G47.33 Wears a machine every night and sleeping well. [facility], previous machine broken, pt uses bipap and benefits from treatment. [id number] Kaleb Hines MD Main Office [address] [facility] [place] [address] 06/09/2023 12:51:45 06/09/2023 14:16:05 Cellulitis of lower limb 923110118 L03.116 Abscess of skin and/or subcutaneous tissue 25230373 L02.91 [id number] Kaleb Hines MD Main Office [address] [facility] [address] [facility] [place] [address] 06/15/2023 09:28:35 06/15/2023 09:57:43 Cellulitis of lower limb 150210694 L03.116 -was given a 7 day course of doxycyclin e; has 1 day left of antibiotic -no erythema or swelling appreciate d on PE-area of slight firmness, tender, where abscess was located-pt and report of jordan martin improvemen ts since starting antibiotic Abscess of skin and/or subcutaneous tissue 52350906 L02.91 -was referred to general surgery; pt waiting for call-repor ts the abscess burst and drained on 06/11-pt has been bandaging area, denies of any worsening symptoms [id number] Kaleb Hines MD Main Office [address] [facility] [address] [facility] [place] [address] 06/30/2023 10:05:04 06/30/2023 11:12:31 Chronic pain syndrome 019704172 G89.4 He has joints pains in his knees and LBP. Meds help. Stable on current mgmt with no SE's. Amputated right lower limb below knee 427206842 Z89.511 Followed by specialist for his prosthesis and shoes. He requires a well-fitte d prosthesis to help him to maintain safe ambulation . Atrial fibrillation 4943 6004 I48.91 Had ablation in 2018 and is back in afib. Followed by cardiology in the past but now followed here. He is currently stable on meds. Degenerati on of lumbar intervertebral disc 44271414 M51.36 Chronic problem. Has a narcotics contract. Essential hypertension 90313154 I10 Good control; continue current mgmt Hyperlipidemia 13551767 E78.5 Insomnia 170035894 G47.0 0 Under control with gabapentin at bedtime. Neuropathy due to diabetes mellitus 984699970 E11.40 A1C has been normal since he has been taking ozempic. Adult heal th examination 120714986 Z00.00 Had a colonoscop y done in April 2019 and due again in 2024. He is UTD with vaccines including COVID and shingles. Body mass index 40+ - severely obese 509821933 E66.01 Z68.41 He has been losing weight on ozempic. His goal is to get below 300lbs. [id number] Kaleb Hines MD Main Office [address] [facility] [address] [place] [address] 08/04/2023 14:35:24 08/04/2023 15:42:12 Esophagitis 96375603 K20.90 This appears to be under good control currently with PPI twice a day. Will recheck his CBC to ensure that his WBC has come back to normal. Will also refer him to Dr Tate for further evaluation and possible EGD. [id number] Kaleb Hines MD Main Office [address] [facility] [address] [place] [address] 10/07/2023 12:39:29 10/07/2023 13:21:56 Chronic pain syndrome 098915593 G89.4 He has joints pains in his knees and LBP. Meds help. Stable on current mgmt with no SE's. Amputated right lower limb below knee 402351083 Z89.511 Followed by specialist for his prosthesis and shoes. He requires a well-fitte d prosthesis to help him to maintain safe ambulation . 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 We added ozempic which has helped with both his weight and his A1C which was last at 5.3. He has lost 56 lbs in the last year. [id number] Kaleb Hines MD Main Office [address] [facility] [address] [place] [address] 11/06/2023 07:32:46 11/06/2023 11:43:16 [id number] Kaleb Hines MD Main Office [address] [facility] [address] [place] [address] 11/11/2023 10:57:34 11/11/2023 11:55:28 Needs influenza immunization 318542061 Z23 19 YEARS AND OLDER ONLY Gastric ulcer 282962427 K25.9 Unclear etiology. Possibly secondary to recent EGD polyp biopsy or possibly from ozempic which is a rare SE. He is currently on pantoprazo le twice a day and recently had melena. Will check CBC today and next week to assure that it is not drifting down. Essential hypertension 78960471 I10 His valsartan and chlorthali done were [...] procedure sometime in the coming 6 weeks. [id number] Kaleb Hines MD Main Office [address] [facility] [address] [place] [address] 01/27/2024 13:34:01 01/27/2024 14:20:07 Neuropathy due to diabetes mellitus 894478275 E11.40 A1C has been very good since he has been taking ozempic. Currently 5.8. We discussed increasing his gabapentin but he would like to stay on the same dose. Chronic pain syndrome 37 8741568 G89.4 He has joints pains in his knees and LBP. Meds help. Stable on current mgmt with no SE's. Iron defic iency anemia 13464438 D50.9 His H/H is low but has remained steady over the last couple of months. He denies any obvious blood loss and has not been taking iron supplement s. He will start daily iron and vitamin C and will be seen by GI next month. I will see him in 3 months. [id number] Kaleb Hines MD Main Office [address] [address] [place] [address] 04/26/2024 10:06:33 04/26/2024 10:26:01 Chronic pain syndrome 372704191 G89.4 He has joints pains in his knees and LBP. Meds help. Stable on current mgmt with no SE's. Antibiotic prophylaxis indicated 308744513 Z78.9 Hypertensive disorder 38 776383 I10 Running high. He was off the metoprolol and just restarted today. Iron defic iency anemia 71961797 D50.9 Had blood loss after an EGD with a bx causing a gastric ulcer and bleeding after a polypectom y. He has been on iron supplement s and vitamin C for 3 months. Will recheck CBC and iron studies. Hyperlipidemia 04972528 E78.5 On meds. Will recheck lipids. [id number] Kaleb Hines MD Main Office [address] [address] [place] [address] 05/09/2024 08:29:02 05/11/2024 06:43:50 [id number] Jurgen Gill MD Main Office [address] [address] [place] [address] 05/09/2024 14:37:15 05/09/2024 16:14:46 Seizure disorder 345566077 G40.909 Traumatic rupture of tendon of long head of right biceps brachii 1561216686 1946865 S46.111A Drug-induc ed hypokalemia 189055223 T50.905A Chlorthali done, which was stopped [id number] Kaleb Hines MD Main Office [address] [address] [place] [address] 06/10/2024 10:58:37 06/10/2024 12:08:23 Hypertensive disorder 74729990 I10 Good control; continue current mgmt. Seizure disorder 2760699 02 G40.909 He is switching his care from Dr Pereyra to a neurologis t at the [facility] in [place]. He will continue with the keppra and he will refrain from driving until he is evaluated by them. There is no clear etiology for his seizures. Major depr essive disorder 931768652 F32.0 He has been on this since 2012 and would like to try weaning from it since he feels he may no longer need it. He was instructed to take 10 mg for 1 week, then 5 mg for 1 week, then 5 mg every other day for 2 weeks. Phantom li mb syndrome with pain 4878158552 106 G54.6 He has been taking gabapentin for more than 7 years and is not sure if this helping any longer. He will wean himself from it and restart it if needed. Pain of ri ght shoulder region 6266730305 M25.511 Started after fall from bed during his first seizure. Amputated right lower limb below knee 506313293 Z89.511 Followed by specialist for his prosthesis and shoes. He requires a well-fitte d prosthesis to help him to maintain safe ambulation . He has a new prosthesis made for him and a form authorizin g this was completed and faxed to the facility on 06/04/24. He was also given a copy to bring with him. Health Concerns Section Related Observation LastModified by Organization Detai ls LastModified Time None Recorded Concern Status LastModified by Organization Details LastModified Time None Recorded Advance Directives Directive Y: Kaci Louie Payers Encounter Date Sequence Insurance Name Policy Number Policy Carr Covered Member ID Carr Member ID Guarantor Name 01/27/2024 1 [employer] [id number] Hugo Louie [id number] Hugo Louie 04/26/2024 1 [place] 33Skyla Louie [id number] Hugo Louie 05/09/2024 1 [place] [id number] Hugo Louie [id number] Hugo Louie 05/09/2024 1 [place] 33E Hugo Louie [id number] Hugo Louie 06/10/2024 1 [facility] EMPLOYEE PROGRAM (PPO) [id number] Hugo Louie [id number] Hugo Louie Notes Date Note Type Note Provider Name and Address Organization Details Recorded Time 01/27/2024 text/html Diabetes F/URepo rted bypatient.Notes:Under good control with ozempic.Generic HPI TemplateReported bypatient.Notes:He has been doing well since his last appointment.Chronic pain remains stable.He weight has plateaued after losing more than 60 lbs.He will continue to work on lifestyle changes. He had a GI bleed 3 months ago and was admitted to [facility] and had an EGD showing an ulcer at the site where he had a polyp removed during an EGD done the week prior. He received PRBC's and his anticoagulation which he takes for afib was stopped. He has since restarted it and he denies any change in bowels or abdominal pain. Kaleb Hines MD [address], [address], [facility] 01/27/2024 17:52:51 04/26/2024 text/html AnemiaReported bypatient.Notes:He had [...] side effects from medication Kaleb Hines MD [address], [address], [facility] 04/26/2024 12:50:41 05/09/2024 text/html 64 yo with AF (watchman device), CARMEN, obesity, and HTN noted to have new onset seizure at home in bed, witnessed by his . He as transported to the ED in [place], where he had another seizure in the ED. Was given ativan in ED and started on Keppra. Reports occasionally drinking alcohol to excess ( up to a six pack of beer ), but did not have significant alcohol greater than 2 drinks according to him or his in the past few weeks. No prior history of seizure. MRI head was reportedly normal but with motion artifact. EEG was performed, but not yet read at the time of discharge. Notes some brain fog and poor memory, but generally tolerating Keppra well. No new seizures. Reports new onset right arm and shoulder pain and bruising above the elbow. Has history of right shoulder pain, but notes worsening pain which his thinks may have been caused by falling from bed during seizure. Jurgen Gill MD [address] [address], [place], [address], [facility] 05/11/2024 07:24:00 05/09/2024 text/html Hospitalization Contact RecordReported bypatient.Follow UpHospital: [facility]; admit date: (Please enter in format 'MM/DD/YYYY') (05/04/2024); date of discharge: (Please enter in format 'MM/DD/YYYY') (05/06/2024); date of contact: (Please enter in format 'MM/DD/YYYY') (05/09/2024)Notes:[facility] care covered inpatient stay? noTOC with in 48 working hours? yes HCP on file? noMOLST on file? noDischarge Summary available? yes05/09/2024- pt had appt scheduled prior to my outreach Pt presented to [facility] [place] [place] ED via EMS with new onset seizure. No hx of seizure disorder. Pt was found gurgling in his sleep, removed cpap, and he rolled out of bed. Pt was confused and diaphoretic, and was still confused when EMS arrived-then suddenly came back to baseline. Pt A &O on arrival to ED with blood in his mouth from biting his tongue. Pt then had another seizure in the ED and was consulted with neuro, recs Keppra 500 mg BID. Pt was also given 4 mg total Ativan.Pt does drink alcohol daily. Reports a few beers or vodka. does not know of any decrease in alcohol use. No hx of alcohol withdrawal. Admitted for seizure complicated by acute metabolic encephalopathy due to post ictal state.Will f/u with Neuro as outpt. Course complicated by urinary retention. D/C on flomax and Proscar, will f/u with Urology. EKGAFIB with RVR, nonspecific T wave abnormality, abnormal ECG, when compared with ECG of 09/07/2023; nonspecific T wave abnormality now evident in lateral leads. CT HEADNo acute intracranial findings MR HEADMotion artifact limits evaluation portions of the study. Within limits of study, no acute intracranial injury. No evidence of acute ischemia, mass or mass effect. XR SHOULDER RTMild to Moderate gelnohumeral joint osteoarthrosis. No acute bony abnormalities. Otherwise normal exam. MEDS RECONCILED Jurgen Gill MD [address] [facility] [address], [place], [address], [facility] 05/11/2024 06:43:49 06/10/2024 text/html Hypertension F/UReported bypatient.Associated Symptoms:no dizziness; no lightheadedness; no chest pain; no shortness of breath; no palpitations; no edema; no calf pain with exertion Lifestyle:limiting/ed iding salt;not exercising regularly Medications:taking medications as directed; no side effects from medication He had a seizure (two) last month and is currently on keppra. He saw Dr Pereyra as an inpatient in [place] but [facility] [place] and has an appointment there in 3 days (06/20/24). He is questioning how long he needs to stay on the meds and when he can start driving again. I told him that these are questions he can ask neurology. He injured his right shoulder after falling from his bed during his first seizure. He would like to see ortho for further evaluation and to discuss his options. He has a new prosthesis waiting for him at [facility]. I already faxed a completed form to them authorizing this and I gave him a copy of the fax. He has a right BKA and is in need of a permanent prosthesis. He is a K3 ambulator and is motivated to ambulate with a better fitting prosthesis. He has been on meds for depression and phantom pain and feels that he no longer needs these. I gave him a wean from both of these. Kaleb Hines MD [address] [address], [place], [address], [facility] 06/16/2024 08:45:06
--- OUTSIDE RECORDS SUMMARY | 2024-06-29 12:29 | XMS_ITS ---
Author Name [facility] [facility] [place] [facility] [place] Address [address] [place] [address] Care Team Providers Care Craps Dealer Name Role Phone JUAN OBRIEN Primary Care Provider Unavail ble Insurance Providers: All historical and current [...] JESSE FAMIL Y Mar 07, 2000 105 [id number] [phone] JAY KRISHNA PATIENT ANTHEM BCBS FEDERAL PREFERRED PROVIDER ORGANIZAT ION (PPO) STAND JESSE FAMIL Y Mar 07, 2000 105 [id number] JAY KRISHNA PATIENT ANTHEM BCBS FEDERAL PREFERRED PROVIDER ORGANIZAT ION (PPO) STAND JESSE SELF Mar 07, 2000 105 [id number] JAY KRISHNA PATIENT BCBS [place] FEP PREFERRED PROVIDER ORGANIZAT ION (PPO) PSHB STAND JESSE FAMIL Y Feb 24, 2024 33E [id number] JAY KRISHNA PATIENT [place] PREFERRED PROVIDER ORGANIZAT ION (PPO) PSHB STAND JESSE FAMIL Y Feb 24, 2024 33E [id number] JAY KRISHNA PATIENT [place] F[place] DENTAL DENTAL INSURANCE STAND JESSE Mar 07, 2000 DENTAL [id number] [phone] JAY KRISHNA PATIENT [place]BS OF [place] FEDERAL PREFERRED PROVIDER ORGANIZAT ION (PPO) PSHB STAND JESSE FAMIL Y Feb 24, 2024 33E [id number] [phone] JAY KRISHNA PATIENT [place] FEP BCBS PRESCRIPT ION CAREM ARK FEPRX PLAN Mar 07, 2000 [id number] JAY KRISHNA PATIENT [place] FEPRX PLAN PRESCRIPT ION CAREM AR[place] FEPRX Feb 23, 2010 [id number] JAY KRISHNA PATIENT [place] FEPRX PLAN PRESCRIPT ION CAREM ARK FEPRX Mar 07, 2000 [id number] [phone] JAY KRISHNA PATIENT [place]-F EP BCBS PRESCRIPT ION BCBS FEP Feb 23, 2010 [id number] JAY KRISHNA PATIENT MEDICARE ([facility]) MEDICARE () PART A May 25, 2011 PART A [id number] [phone] JAY KRISHNA PATIENT MEDICARE ([facility]) MEDICARE () PART A May 25, 2011 PART A [id number] JAY KRISHNA PATIENT MEDICARE ([facility]) MEDICARE () PART A May 25, 2011 PART A [id number] JAY KRISHNA PATIENT MEDICARE ([facility]) MEDICARE () PART A May 25, 2011 PART A [id number] [phone] JAY KRISHNA PATIENT MEDICARE ([facility]) MEDICARE () PART A May 25, 2011 PART A [id number] [phone] JAY KRISHNA PATIENT MEDICARE ([facility]) MEDICARE () PART A May 25, 2011 PART A [id number] JAY KRISHNA PATIENT MEDICARE (WNR) MEDICARE (M) PART A May 25, 2011 PART A [id number] [facility] JAY KRISHNA PATIENT MEDICARE (WNR) MEDICARE (M) PART A May 25, 2011 PART A [id number] [facility] JAY KRISHNA PATIENT Selected Encounter This section includes the information on record at [place] for the Encounter. Date/Time Encounter Type Encounter Description Reason Provider Source Jun 13, 2024 02:00 PM OFFICE O/P NEW [place] 60 MIN NEUROLOGY ICD-10-CM R56.9 Unspecified convulsions DRAGAN WESTON [facility] Encounter Template Text not used by [place] Assessments - Encounter Diagnoses This section includes the primary and secondary diagnoses documented for the Encounter. Date/Time Primary/Secondary Diagnosis Diagnosis Name Provider Source Jun 13, 2024 03:18 PM PRIMARY Unspecified convulsions DRAGAN WESTON [facility] ([id number]) Plan of Treatment: Future Appointments (+ 6 months) and Future Tests (+/- 45 days) The Plan of Treatment section includes future care activities for the patient from all [place] treatmentfacilities. This section includes future appointments and future orders which are active, pending or scheduled. Future Appointments This section includes appointments that were scheduled to occur 6 months from the date of the Encounter, up to a maximum of 20 appointments. The data comes from all [place] treatment facilities. Appointment Date/Time Appointment Type Appointme nt Facility Name June 23, 2024 10:30 AM AMBULATORY - [place]ICINE [place] [facility] [place] [facility] June 23, 2024 11:30 AM AM[place]ULATORY [place] [facility] [place] [facility] June 27, 2024 08:00 AM AMBULATORY [place] [facility] [place] [facility] July 19, 2024 09:00 AM AMBULATORY [place]INE [place] [facility] [place] [facility] Aug 08, 2024 09:30 AM AMBULATORY [place] [facility] [place] [facility] Aug 09, 2024 11:00 AM AMBULATORY [place]ICINE [place] [facility] [place] [facility] Sep 01, 2024 11:00 AM AMBULATORY [place]ICINE [place] [facility] [place] [facility] Oct 10, 2024 11:00 AM AM[place]ULATORY [place]ICINE [place] [facility] [place] [facility] Oct 26, 2024 10:00 AM AMBULATORY - MEDICINE [facility] Active, Pending, and Scheduled Orders This section includes a listing of several types of active, pending, and scheduled orders, including clinic medications orders, diagnostic test orders, procedure orders and consult orders; where the start date of the order is 45 days before the date of the Encounter or 45 days after the date of theEncounter. The data comes from all [place] treatment facilities. Test Date/Time Test Type Test Details Facility Name June 27, 2024 08:15 AM Laboratory - Chemistry Order LEVETIRACETAM (Keppra) BLOOD (RED-PLAIN) SERUM SP [facility] Encounter Notes: All associated encounter notes This section contains the clinical notes associated to the Encounter. Date/Time Encounter Note(s) Provider Source Jun 13, 2024 02:32 PM NEUROLOGY CONSULT: LOCAL TITLE: CONSULT REPORT/NEUROLOGY STANDARD TITLE: NEUROLOGY CONSULT DATE OF NOTE: JUN 13, 2024@14:32 ENTRY DATE: JUN 13, 2024@14:32:51 AUTHOR: ABIEL WESTON EXP COSIGNER: URGENCY: STATUS: COMPLETED JUN 13, 2024 JAY KRISHNA is a 64 y/o RHD WHITE MALE, previously in [employer] FROM Sep TO Aug from [employer], w/chief complaint of Seizures I had the pleasure of seeing your patient Mr. Krishna in neurology clinic on June 13, 2024. He is a 64-year-old right-handed with past medical history significant for A-fib on rivaroxaban and Plavix status post Watchman device on January 07, 2024, hypertension, hyperlipidemia, obstructive sleep apnea on CPAP, depression obesity on Ozempic therapy since 2023 with loss of more than 100 pounds, osteomyelitis right foot with sepsis status post right BKA who is being evaluated for his seizure disorder. He comes accompanied with his Kaci who fills me in about patient's history. Describing his story his tells me that it was May 04, 2024 night when all of a sudden she felt him being restless. She looked at him and it seemed that his CPAP pipe has disconnected from the mask. She tried to talk to him and he was unresponsive with staring look and eyes wide open. She noticed some blood in his mouth. She quickly removed the mask and try to wake him up but took a little while but found him to be rather confused and mumbling and had difficulty to answer even simple questions. She tried to get him some help but by that time with confusion he got out of the bed and with his right BKA he fell down and injured his right shoulder and biceps. He also was found to have incontinence of urine. 911 was called and when EMS arrived he was agitated and combative and refused to go to the emergency room. He was finally made to go to the emergency room and while in the emergency room he had another witnessed seizure where noticed that his head and body turned to the left and he became stiff with generalized shaking. He again had blood from his mouth and incontinence of urine. The seizure probably lasted 2 minutes. He apparently was treated with Ativan 4 mg and phenobarbital 460 mg and loaded with 1.5 g Keppra then he started on levetiracetam 500 mg twice daily which she has been using since then and last level checked was 8.3 on May 11. He sometimes will have a few beers or vodka at night on average 12 pack in a week. He had a drink in the form of glass of wine the night before. He had an MRI of the brain done during that hospitalization on May 04 which showed some motion artifact but no other significant abnormality. He had subsequent MRI done as an outpatient with and without contrast on June 07, 2024 which was also essentially a normal study except some age-related changes. An EEG done on May 05 at [facility] was unremarkable. Patient reports that he had been on Ozempic at that time which she has been out for last 1-1/2 years helping him to lose 100 pounds. In the emergency room his potassium was reportedly low at 2.6 units as per his . He did denied any family history of seizures and no febrile seizures as a kid. Denies any major head trauma with loss of consciousness or brain or meningeal infection like encephalitis or meningitis. He was born full-term with normal vaginal delivery and had a normal developmental milestones. MRI of the brain with and without contrast on June 07, 2024 done at [facility]: Impression: 1. No acute intracranial pathology seen. 2. Generalized volume loss and age-related involutional changes as discussed. 3. Polypoid small 1 cm enhancing lesion within the left side fourth nasal cavity abutting the middle turbinate. Correlate with the ENT exam. ---- MRI of the brain done at [facility] on May 04, 2024: Impression: 1. Motion artifact limits evaluation portions of the study. Within limits of the study, no acute intracranial injury. No evidence of acute ischemia, mass or mass effect. EEG done at [facility] on May 05, 2024: Impression: Unremarkable EEG ========= PMHx: A-fib on rivaroxaban and Plavix status post Watchman device on January 07, 2024, hypertension, hyperlipidemia, obstructive sleep apnea on CPAP, depression obesity on Ozempic therapy since 2023 with loss of more than 100 pounds, osteomyelitis right foot with sepsis status post right BKA Service Connected Disabilities with % Eligibility: SERVICE CONNECTED 50% to 100% VERIFIED Total S/C %: 70 SPINAL DISC CONDITION 40% S/C INFLAMMATION OF EXTERNAL POPLITEAL NERVE 20% S/C INFLAMMATION OF EXTERNAL POPLITEAL NERVE 20% S/C IMPAIRED HEARING 0% S/C TINNITUS 10% S/C MEDS: Active Outpatient Medications (including Supplies): CLOBETASOL PROPIONATE 0.05% CREAM APPLY A THIN LAYER ACTIVE TOPICALLY TWICE DAILY FOR ITCHING/RASH APPLY TO AFFECTED AREAS FOR 2 WEEKS, THEN NEEDED Indication: FOR SKIN INFLAMMATION CLOTRIMAZOLE 1% TOP SOLN APPLY 1 DROP TOPICALLY ONCE DAILY ACTIVE FOR FUNGAL INFECTION APPLY TO NAILS WHEN DRY Indication: TOE NAIL FUNGUS LEVETIRACETAM 500MG TAB TAKE ONE TABLET BY MOUTH TWICE ACTIVE DAILY Indication: FOR PARTIAL SEIZURES METRONIDAZOLE 0.75% TOP GEL APPLY SMALL AMOUNT TOPICALLY ACTIVE TWICE DAILY Indication: FOR ACNE ROSACEA MICONAZOLE NITRATE 2% TOP PWDR APPLY SMALL AMOUNT ACTIVE TOPICALLY TWICE DAILY NEEDED Indication: FOR FUNGAL INFECTION OF SKIN MOISTURIZING (EQV-[id number])UNSCENT LOT APPLY LIBERAL ACTIVE AMOUNT TOPICALLY DIRECTED Indication: DRY SKIN SILDENAFIL CITRATE 100MG TAB TAKE ONE TABLET BY MOUTH ONCE ACTIVE DAILY TAKE 1 HOUR PRIOR TO SEXUAL ACTIVITY Indication: FOR ERECTILE DYSFUNCTION TERBINAFINE HCL 1% CREAM APPLY A THIN LAYER TOPICALLY ACTIVE TWICE DAILY APPLY TO RIGHT LEG UP TO 1-4 WEEKS UNTIL RASH RESOLVES Indication: FOR RINGWORM OF THE BODY Non-VA ASCORBIC ACID 500MG TAB 500MG BY MOUTH ONCE DAILY ACTIVE Non-VA CLOPIDOGREL BISULFATE 75MG TAB 75MG BY MOUTH ONCE ACTIVE DAILY Indication: TO PREVENT BLOOD CLOTS Non-VA FINASTERIDE 5MG TAB 5MG BY MOUTH ONCE DAILY ACTIVE Non-VA FLUOXETINE HCL 20MG CAP 20MG BY MOUTH ONCE DAILY ACTIVE Non-VA GABAPENTIN 300MG CAP 300MG BY MOUTH BEDTIME ACTIVE Non-VA METOPROLOL SUCCINATE 200MG SA TAB 200MG BY MOUTH ACTIVE ONCE DAILY Indication: afibb Non-VA OMEPRAZOLE 20MG EC CAP 20MG BY MOUTH TWICE DAILY ACTIVE BEFORE A MEAL Non-VA OXYCODONE HCL 5MG TAB NOT SA 5MG BY MOUTH ACTIVE EVERY 8 HOURS NEEDED Non-VA SEMAGLUTIDE 2MG/0.75ML INJ PEN 3ML 2MG ACTIVE SUBCUTANEOUSLY ONCE A WEEK Indication: FOR TYPE 2 DIABETES MELLITUS Non-VA SIMVASTATIN 80MG TAB 40MG BY MOUTH ONCE DAILY ACTIVE Non-VA TAMSULOSIN HCL 0.4MG CAP 0.4MG BY MOUTH ONCE DAILY ACTIVE Non-VA VALSARTAN 160MG TAB 160MG BY MOUTH ONCE DAILY ACTIVE 20 Total Medications ALL: ERYTHROMYCIN Fam Hx: No family history of seizures. Soc Hx: He denies smoking and has stopped drinking alcohol as he used to consume some beer or vodka few times a week. He also will consume some marijuana but has now stopped it. Vitals Enter at: Jun 13, 2024@14:04:38 BP: 137/87 P: 95 R: 17 Vitals Enter at: May 11, 2024@10:50:23 T: 97.8 NEUROLOGIC EXAM: GENERAL: WD WN WM in NAD, appears well, appropriate affect, appropriate eye contact and social interaction. HIGHER MENTAL FUNCTION: AAO to Person/Place/Date/Situation . Attention, concentration, orientation, language, memory, speech and fund of knowledge was normal. Able to maintain attention to conversation and follow directions on exam. No distractability, impersistence, or perseveration. Fluent language and intact comprehension, no paraphasic errors. CRANIAL NERVES: Cranial nerve examination 2-12 was normal. Pupils were equal round and reactiveto light, extraocular movements were intact, visual min were full. There was no facial asymmetry, tongue was in the midline and palate moved bilaterally. Sternocleidomastoid and trapezius were of normal strength. MOTOR: On motor examination tone and bulk was normal power was 5/5 throughout except that he has a right BKA with a prosthesis. DTRs were 2+ and symmetrical except right knee and ankle jerk, both plantars were downgoing. SENSORY: All sensory modalities were intact. GAIT: Gait was normal. Romberg was absent. COORDINATION: Coordination was normal with [id number]-gqtc-[id number] and [id number]-db-tdtx testing. CAROTIDS: Neck was supple and there were no carotid bruit audible. CARDIAC: On cardiac auscultation rate and rhythm was regular and S1-S2 was audible. EXTREMITIES: Extremities showed no cyanosis clubbing or edema. Labs/Rads: Collection DT Spec WBC HGB HCT PLT K+/Pot Sodium HGBA1c 05/11/2024 12:06 SERUM 4.0 138 05/11/2024 12:06 BLOOD 5.2 05/11/2024 12:06 BLOOD 8.04 13.9 40.8 295 05/11/2024 12:06 SERUM 4.0 138 02/11/2024 07:51 SERUM 4.6 142 Collection DT Spec GLUCOSE CREATIN AST ALT T BILI ALK MERLIN CHOL 05/11/2024 12:06 SERUM 96 0.69 05/11/2024 12:06 SERUM 96 0.69 25 22 1.3 H 58 110 02/11/2024 07:51 SERUM 110 H 0.84 19 14 1.0 72 128 08/11/2023 08:54 SERUM 114 H 0.86 23 20 1.9 H 66 112 01/23/2023 07:40 SERUM 118 H 0.95 37 H 38 1.6 H 80 187 Collection DT Spec LDL-c HDL TRIG TSH B12 SR- VIT D25 RBC/HPF 05/11/2024 12:06 SERUM 1.52 714 25 05/11/2024 12:06 SERUM 63 30 L 84 02/11/2024 07:51 SERUM 78 34 L 81 08/11/2023 08:54 SERUM 52 35 L 127 01/23/2023 07:40 SERUM 111 30 L 228 H 1.29 CHEM 7 TREND LAB CUMULATIVE SELECTED Collection [...] 140 4.5 103 26 104 H 14 06/01/2018 09:26 SERUM 138 4.3 104 25 103 H 11 12/04/2017 10:36 SERUM 139 4.2 102 26 103 H 12 10/01/2017 10:40 SERUM 138 3.9 104 24 113 H 15 05/29/2017 07:46 SERUM 141 4.1 105 28 100 18 10/16/2016 08:53 SERUM 139 4.5 102 26 129 H 14 04/23/2015 07:36 SERUM 138 4.7 101 28 136 H 16 03/16/2014 07:53 SERUM 4.5 172 H 16 06/02/2013 10:16 SERUM 137 4.7 113 H 01/13/2013 09:29 SERUM 138 4.6 110 H 13 10/18/2012 16:16 SERUM 4.2 17 04/16/2012 09:32 SERUM 137 4.6 275 H 13 06/06/2011 09:53 SERUM 141 4.2 106 25 125 H 13 12/24/2010 08:38 SERUM 139 4.2 170 H 11 04/08/2010 11:55 SERUM 101 H 04/04/2010 09:43 SERUM 138 4.3 103 25 139 H 15 07/06/2009 08:33 SERUM 4.4 107 H 02/14/2009 08:06 SERUM 4.5 112 H >60 08/24/2008 09:04 SERUM 110 H 05/08/2008 08:38 SERUM 140 4.2 105 23 101 H 16 >60 02/01/2008 10:05 SERUM 110 H >60 09/28/2006 09:15 SERUM 141 5.0 106 26 114 H 10 >60 01/11/2001 08:21 SERUM 99 14 No data for IRON & TIBC PANEL FERRITIN - NONE FOUND VITAMIN B12 (FRK) - NONE FOUND FOLATE - NONE FOUND Liver Function Tests Collection DT Spec AST ALT ALK MRELIN ALBUMIN T BILI T. PROT 05/11/2024 12:06 SERUM 25 22 58 3.9 1.3 H 7.4 02/11/2024 07:51 SERUM 19 14 72 4.0 1.0 7.3 HEMOGLOBIN A1C TREND Collection DT Spec HGBA1c 05/11/2024 12:06 BLOOD 5.2 02/11/2024 07:51 BLOOD 5.3 08/11/2023 08:54 BLOOD 5.0 01/23/2023 07:40 BLOOD 5.5 06/02/2022 07:57 BLOOD 6.4 H Tox screen No data available Other Studies: Outpt. Medication Reconciliation: Med Rec Completed. NO DISCREPANCIES FOUND - The patient's medication list/medication history to include Local Active [facility] Prescriptions, Remote Active VA Prescriptions, Non-VA medications, Recently VA Prescriptions (90-180 days), Recently Discontinued VA Prescriptions (90-180 days), and Pending Medication Orders where relevant (e.g., patient is seen by multiple providers in the same day) was compared with CPRS and reviewed with the patient/caregiver and reconciled. Any changes in medications and any medications prescribed by this provider discontinued are documented in this note. Medications not prescribed by this provider will be addressed by pt's PCM or appropriate specialty provider. Discussed risks and possible benefits and mechanism of action of medications prescribed. Pt indicated understanding of the risks of medications, and all questions were answered to pt's satisfaction Assessment/Plan JUN 13, 2024: Jay is being evaluated for his episode of seizure activity. He reportedly had 2 generalized tonic-clonic seizures on the night of April at 12 1 during sleep and another witnessed in the emergency room. Both seizures were associated with tongue biting, incontinence of urine and postictal confusion. He has been on Keppra 500 mg twice daily with therapeutic levels of 8.3 as seen on May 11. His workup included MRI of the brain with and without contrast and an EEG which were both normal. He is tolerating Keppra without any difficulty and does not report any behavioral problems although initially he was emotional more so because of his acceptance of this condition rather than as medication side effect. My plan here is: 1. I advised him to have a level checked early in the morning before taking the morning dose and after the blood workup he can take the morning dose that we will have a true trough level and see if we need to adjust the dose 2. He was informed about the registry of motor vehicle law in [place] that he cannot drive for 6 months after an episode of loss of consciousness/seizure 3. He was informed about the seizure precautions including not being alone and open high spaces, near fire, operating heavy machinery, being in a big body of water including tub. Showers will be okay. I will see him back in follow-up in approximately 4 to 5 months. (X) Neurologic condition and management, including choice of medications and therapies, was evaluated and discussed with patient based on his complex other medical conditions. ~60 mins spent on exam, assessment, counseling, and coordination I spent a total of 60 minutes on the date of encounter, which included: -Preparing to see the patient (e.g., review of test results) -Obtaining and/or reviewing separately obtained history -Performing a medically appropriate exam and/or evaluation -Counseling and educating the patient/family/caregiver -Ordering medications, tests, procedures -Referring and communicating with other healthcare professionals, when not separately reported -Documenting clinical information in the health record -Independently interpreting results (not separately reported) and communicating results to the patient/family/caregiver -Care coordination not separately reported -Documented time does not include time for procedures performed during this patient encounter Pt to RTC in 4 months, or sooner if new issues. Abiel Weston MD Staff Neurologist [facility] /daniela/ ABIEL WESTON MD NEUROLOGIST Signed: 06/13/2024 15:20 ABIEL WESTON [facility] ([id number])
--- OUTSIDE RECORDS SUMMARY | 2024-06-29 12:29 | XMS_ITS | Encounter Summary ---
Author Organization [facility] Address [address] [place] [id number] Care Team Providers Care Marketing Researcher Name Role Phone Pcp, No Primary Care Provider Unavailabl e Encounter Details Date Type Department Care Team (Late st Contact Info) Description 06/19/2023 [place] [address] Slick Weinstein MD [address] [place], [place] [id number] Social History Tobacco Use Types Packs/Day Years Used Date Smoking Tobacco: Never Assessed Sex and Gender Information Value Date Recorded Sex Assigned at Male 06/15/2023 10:38 AM EDT Legal Sex Male 8:03 PM EDT Gender Identity Male 06/15/2023 10:38 AM EDT Sexual Orientation Other 06/15/2023 10 :38 AM EDT documented as of this encounter Plan of Treatment Upcoming Encounters Date Type Department Care Team (Late st Contact Info) Description 07/12/2024 9:45 AM EDT Office Visit Orthopedic [address] [address] Slick Weinstein MD [address] [place] [phone] documented as of this encounter Visit Diagnoses Not on filedocumented in this encounter Care Teams Marketing Researcher Relationship Specialty Start Date End Date Pcp, No PCP - General General Medicine 06/16/23 documented as of this encounter
--- OUTSIDE RECORDS SUMMARY | 2024-06-29 12:29 | XMS_ITS | Encounter Summary ---
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 Machine Offbearer Name Role Phone JUAN OBRIEN Primary Care Provider Unavaileddie [facility] Insurance Providers: All historical and current Section [...] JESSE FAMIL Y Mar 07, 2000 [id number] [phone] JAY KRISHNA PATIENT ANTHEM BCBS FEDERAL PREFERRED PROVIDER ORGANIZAT ION (PPO) STAND JESSE FAMIL Y Mar 07, 2000 105 [id number] JAY KRISHNA PATIENT ANTHEM BCBS FEDERAL PREFERRED PROVIDER ORGANIZAT ION (PPO) STAND JESSE SELF Mar 07, 2000 105 [id number] JAY KRISHNA PATIENT BCBS [place] FEP PREFERRED PROVIDER ORGANIZAT ION (PPO) PSHB STAND JESSE FAMIL Y Feb 24, 2024 [id number] JAY KRISHNA PATIENT [place] PREFERRED PROVIDER ORGANIZAT ION (PPO) PSHB STAND JESSE FAMIL Y Feb 24, 2024 [id number] JAY KRISHNA PATIENT [place] DENTAL DENTAL INSURANCE STAND JESSE Mar 07, 2000 DENTAL [id number] JAY KRISHNA PATIENT [place] FEDERAL PREFERRED PROVIDER ORGANIZAT ION (PPO) PSHB STAND JESSE FAMIL Y Feb 24, 2024 [id number] JAY KRISHNA PATIENT [place] FEP BCBS PRESCRIPT ION [place] FEPRX PLAN Mar 07, 2000 [id number] JAY KRISHNA PATIENT [place] FEPRX PLAN PRESCRIPT ION [place] FEPRX Feb 23, 2010 [id number] JAY KRISHNA PATIENT [place] FEPRX PLAN PRESCRIPT ION CAR[place] FEPRX Mar 07, 2000 [id number] [phone] JAY KRISHNA PATIENT [place]-F EP BCBS PRESCRIPT ION BCBS FEP Feb 23, 2010 [id number] JAY KRISHNA PATIENT MEDICARE ([facility]) MEDICARE () PART A May 25, 2011 PART A [id number] [facility] [phone] JAY KRISHNA PATIENT MEDICARE ([facility]) MEDICARE () PART A May 25, 2011 [id number] [id number] [phone] JAY KRISHNA PATIENT MEDICARE ([facility]) MEDICARE () PART A May 25, 2011 PART A [id number] JAY KRISHNA PATIENT MEDICARE ([facility]) MEDICARE () PART A May 25, 2011 PART A [id number] JAY KRISHNA PATIENT MEDICARE ([facility]) MEDICARE () PART A May 25, 2011 PART A [id number] JAY KRISHNA PATIENT MEDICARE ([facility]) MEDICARE () PART A May 25, 2011 PART A [id number] [phone] JAY KRISHNA PATIENT MEDICARE (WNR) MEDICARE (M) PART A May 25, 2011 PART A [id number] [facility] JAY KRISHNA PATIENT MEDICARE (WNR) MEDICARE (M) PART A May 25, 2011 PART A [id number] JAY KRISHNA PATIENT Selected Encounter This section includes the information on record at [place] for the Encounter. Date/Time Encounter Type Encounter Description Reason Provider Source Sep 23, 2023 08:30 AM OFFICE O/P EST LOW 20 MIN PODIATRY ICD-10-CM S88.112S Complete tra[facility] at [facility], l low leg, DAGOBERTO Castro [facility] Encounter Template Text not used by [place] Assessments - Encounter Diagnoses This section includes the primary and secondary diagnoses documented for the Encounter. 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 [facility] [place] [facility] Plan of Treatment: Future Appointments (+ [...] 01, 2023 11:00 AM AMBULATORY - [facility]ICINE [facility] [place] [facility] Dec 25, 2023 11:30 AM AMBULATORY - MEDICINE [facility] [place] [facility] Feb 11, 2024 10:00 AM AMBULATORY - [facility]ICINE [facility] [place] [facility] Mar 16, 2024 10:00 AM AMBULATORY - [facility]ICINE [facility] [place] [facility] Mar 22, 2024 08:30 AM AMBULATORY - [facility]ICINE [facility] [place] [facility] Social History: Smoking Status (Most current) [...] VA-TOBACCO FORMER USER [facility] [place] [facility] Tobacco Use History This section includes a history of the smoking, or tobacco-related health factors, that were collected on or before the date of the Encounter. The data comes from the [place] facility where the Encounter took place. Date/Time Smoking Status/Tobac co Use Comment Facility July 24, 2023 10:00 AM VA-TOBACCO QUIT 15 YRS OR MORE [facility] [place] [facility] July 14, 2022 03:30 PM VA-TOBACCO FORMER USER [facility] [place] [facility] July 14, 2022 03:30 PM VA-TOBACCO QUIT 15 YRS OR MORE [facility] [place] [facility] Aug 05, 2021 01:00 PM VA-TOBACCO FORMER USER [facility] [place] [facility] Aug 05, 2021 01:00 PM VA-TOBACCO QUIT 5 TO < 15 YRS [facility] [place] [facility] Sep 09, 2019 01:25 PM VA-TOBACCO FORMER USER [facility] [place] [facility] Sep 09, 2019 01:25 PM VA-TOBACCO QUIT 5 TO < 15 YRS [facility] [place] [facility] Dec 04, 2017 10:18 AM VA-TOBACCO FORMER USER [facility] [place] [facility] Dec 04, 2017 10:18 AM VA-TOBACCO QUIT 5 TO < 15 YRS [facility] [place] [facility] May 29, 2017 09:09 AM QUIT TOBACCO USE > 7 YEARS AGO [facility] [place] [facility] Apr 23, 2015 08:21 AM QUIT TOBACCO USE > 7 YEARS AGO [facility] [place] [facility] Apr 23, 2015 08:21 AM QUIT TOBACCO USE 1-7 YEARS AGO [facility] [place] [facility] Mar 06, 2011 11:06 AM QUIT TOBACCO USE 1-7 YEARS AGO [facility] [place] [facility] Apr 08, 2010 10:56 AM CURRENT SMOKER cigar once in a while [facility] [place] [facility] Apr 08, 2010 10:56 AM V1-PT DECLINES REF TO TOBACCO CESS PRGM [facility] [place] [facility] Apr 08, 2010 10:56 AM V1-PT DECLINES TOBACCO CESSATION MEDS [facility] [place] [facility] Apr 08, 2010 10:56 AM V1-PT READY TO QUIT TOBACCO USE [facility] [place] [facility] Feb 21, 2009 09:16 AM CURRENT SMOKER cigar once in a while [facility] [place] [facility] Feb 21, 2009 09:16 AM V1-PT DECLINES [facility]ACCO [facility]ESS [facility] [place] [facility] Feb 21, 2009 09:16 AM V1-PT DECLINES TOBACCO CESSATION MEDS [facility] [place] [facility] Feb 21, 2009 09:16 AM V1-PT THINKING ABOUT QUIT TOBACCO USE [facility] [place] [facility] Dec 16, 2007 09:15 AM QUIT TOBACCO USE 1-7 YEARS AGO [facility] [place] [facility] Apr 01, 2007 11:08 AM QUIT TOBACCO USE 1-7 YEARS AGO [facility] [place] [facility] Sep 28, 2006 08:52 AM QUIT TOBACCO USE IN PAST YEAR [facility] [place] [facility] Apr 21, 2006 10:31 AM QUIT TOBACCO USE IN PAST YEAR August 2005 [facility] [place] [facility] Dec 16, 2005 10:02 AM CURRENT SMOKER OCCASIONAL CIGAR [facility] [place] [facility] May 19, 2001 03:50 PM CURRENT SMOKER see below [facility] [place] [facility] Encounter Notes: All associated encounter notes This section contains the clinical notes associated to the Encounter. Date/Time Encounter Note(s) Provider Source Oct 05, 2023 03:17 PM LETTERS: LOCAL TITLE: PATIENT LETTER (B) STANDARD TITLE: LETTERS DATE OF NOTE: OCT 05, 2023@15:17 ENTRY DATE: OCT 05, 2023@15:17:28 AUTHOR: DYLAN GAUTAM EXP COSIGNER: URGENCY: STATUS: COMPLETED [facility] JAY KRISHNA [address] [place], [place], [address] OCT 05, 2023 Dear JAY KRISHNA, Your shoes have arrived at the [facility] located at [address] [place] [address]. Please call [phone] ext. [phone] for Dylan or ext. [phone] for Jazmyne to make a shoe fitting appointment. Clinic Hours are 8:30am-3:30pm. Walk-ins may not be accommodated. We hope to see you soon. Podiatry Staff [address] [address] DYLAN GAUTAM [facility] [place] [facility] Sep 23, 2023 03:30 PM PODIATRY NOTE: LOCAL TITLE: PODIATRY PAVE FOOT EXAM STANDARD TITLE: PODIATRY NOTE DATE OF NOTE: SEP 23, 2023@15:30 ENTRY DATE: SEP 23, 2023@15:30:40 AUTHOR: DAGOBERTO POZO EXP COSIGNER: URGENCY: STATUS: COMPLETED PAVE FOOT EXAM A [...] PODIATRY ATTENDING Signed: 09/23/2023 15:31 DAGOBERTO POZO [facility] [place] [facility] Sep 23, 2023 08:34 AM PODIATRY NOTE: LOCAL TITLE: PODIATRY NOTE STANDARD TITLE: PODIATRY NOTE DATE OF NOTE: SEP 23, 2023@08:34 ENTRY DATE: SEP 23, 2023@08:35 AUTHOR: DAGOBERTO POZO EXP COSIGNER: URGENCY: STATUS: COMPLETED Podiatry High Risk Foot Encounter [facility] Clinic provider: Dagoberto Pozo DPM Date: SEP 23, 2023 JAY KRISHNA MALE [id number] [place] [address] FROM Sep TO Aug Primary Care:JUAN OBRIEN [...] Dependence * 10. Diabetes mellitus (SNOMED CT 22712753) 11. Atrial fibrillation (SNOMED CT 76508217) 12. Benign essential hypertension (SNOMED CT 0398968) 13. Family History of Ischemic Heart Disease 14. Obesity (SNOMED CT 542794461) 15. Hyperlipidemia 16. Chronic Low Back Pain [...] WEEK NEEDED 2) Non-VA SEMAGLUTIDE (OZEMPIC) PA-F INJ,[place]IS[place] ACTIVE SUBCUTANEOUSLY 11 Total Medications Imaging reports: [...] and temperature and patient is insensate to [place] Edward monofilament in the distal toes 1 [...] as results of the physical exam and project management consultant opinions and recommendations as sought. [...] -The on this visit was given information [employer] service and encouraged to enroll if not already having done so. /daniela/ DAGOBERTO POZO DPM PODIATRY ATTENDING Signed: 09/23/2023 15:30 DAGOBERTO POZO [facility]
--- OUTSIDE RECORDS SUMMARY | 2024-06-29 12:29 | XMS_ITS | Clinical Summary ---
Author Organization [facility] Address [address] [place] [id number] Phone Care Team Providers Care Nematologist Name Role Phone Ken Hines MD Primary Care Provider [phone] Allergies Active Allergy Reactions Criticality Noted Date [...] Noted Date Diagnosed Date Atrial fib/flutter, transient ([facility] V24, [facility] V28) 01/07/2024 Obesity (BMI 30-39.9) 01/07/2024 Presence of Watchman left atrial appendage closu re device 01/07/2024 Encounters Date Type Department Care Team Description 05/20/2024 Telephone [facility] [address] [facility] [address] [place] [address] Dannie Pan MD watchman 05/16/2024 Telephone [facility] [address] [facility] [address] [place] [address] Lexy Dooley STAFFING EXECUTIVE Medication from Last 3 Months Medical History Medical History Date Comments Left knee pain DX:Left knee brock n Hematoma of left thigh DX:Hemato ma of left thigh CARMEN (obstructive sleep apnea) DX :CARMEN (obstructive sleep apnea) Septic arthritis of knee, le ft ([facility] V24, [facility] V28) DX:Septic arthritis of knee, left (HCC) Type 2 diabetes mellitus wit h diabetic neuropathy affecting both sides of body ([facility] V24, [facility] V28) DX:Type 2 diabetes mellitus with diabetic neuropathy [...] - Risk 2-dose series) 01/25/1980 RSV Immunization Adult Patients (1 - Risk 60-74 years 1-dose [...] age to complete this topic Meningococcal B Vaccine Aged Out No l onger eligible based on patient's age to complete this topic RSV Immunization Patients Under 20 months Aged Out No longer eligible based on patient's age to complete this topic Varicella Vaccines Aged Out No longer eligible based on patient's age to complete this topic Medical Devices Implanted Type Area Shade Hanger Device Identifier Shelf Expiration Date Model / Serial / Lot Device Clsur Watchman Flx Pro Nichole 27mm - [id number] - [id number] Implanted:Qty : 1 on 01/07/2024 by Dannie Pan MD at [facility] Other Cardiac Implant N/A: [employer] [id number] / [id number] / Description:NICHOLE Procedures Procedure Name Priority Date/Time Associated Diagnosis Comments BASIC METABOLIC PANEL Routine 12/29/2023 7:39 AM EST from Last 3 Months or Most Recently Relevant to Health Maintenance Results * (ABNORMAL) Basic metabolic panel (12/29/2023 7:39 [...] AM EST Performed at: ??01 - [facility] [address] ??[id number] Asset Coordinator: Deonna Cristobal MD, Phone: ??[phone] us Dannie Pan MD LAB BLOOD ORDERABLES Final Res ult [facility] 1 from Last 3 Months or Most Recently Relevant to Health Maintenance Insurance MEDICARE [facility] MEDICARE Advance Directives * Full Code - [...] currently active code status orders. Care Teams Nematologist Relationship Specialty Start Date End Date Ken Hines MD [id number] PCP - General Internal Medicine 10/01/21
--- OUTSIDE RECORDS SUMMARY | 2024-06-29 12:29 | XMS_ITS ---
Author Name [facility] [place] [facility] [place] Organization [facility] [place] Address [address] [place] [address] Care Team Providers Care Corporate Administrator Name Role Phone JUAN OBRIEN Primary Care Provider Unavaileddie [facility] Insurance Providers: All historical and [...] JESSE FAMIL Y Mar 07, 2000 105 [id number] [phone] JAY KRISHNA PATIENT ANTHEM BCBS FEDERAL PREFERRED PROVIDER ORGANIZAT ION (PPO) STAND JESSE FAMIL Y Mar 07, 2000 105 [id number] JAY KRISHNA PATIENT ANTHEM BCBS FEDERAL PREFERRED PROVIDER ORGANIZAT ION (PPO) STAND JESSE SELF Mar 07, 2000 105 [id number] JAY KRISHNA PATIENT BCBS [place] FEP PREFERRED PROVIDER ORGANIZAT ION (PPO) PSHB STAND JESSE FAMIL Y Feb 24, 2024 33E [id number] JAY KRISHNA PATIENT [place] PREFERRED PROVIDER ORGANIZAT ION (PPO) PSHB STAND JESSE FAMIL Y Feb 24, [phone] [id number] [phone] JAY KRISHNA PATIENT [place] DENTAL DENTAL INSURANCE STAND JESSE Mar 07, 2000 DENTAL [id number] [phone] JAY KRISHNA PATIENT [place] FEDERAL PREFERRED PROVIDER ORGANIZAT ION (PPO) PSHB STAND JESSE FAMIL Y Feb 24, 2024 33E [id number] JAY KRISHNA PATIENT [place] FEP BCBS PRESCRIPT ION CAR[place] FEPRX PLAN Mar 07, 2000 [id number] JAY KRISHNA PATIENT [place] FEPRX PLAN PRESCRIPT ION CAR[place] FEPRX Feb 23, 2010 [id number] JAY KRISHNA PATIENT [place] FEPRX PLAN PRESCRIPT ION [place] FEPRX Mar 07, 2000 [id number] [phone] JAY KRISHNA PATIENT [place]-F EP BCBS PRESCRIPT ION BCBS FEP Feb 23, 2010 [id number] JAY KRISHNA PATIENT MEDICARE ([facility]) MEDICARE () PART A May 25, 2011 PART A [id number] [facility] [phone] JAY KRISHNA PATIENT MEDICARE ([facility]) MEDICARE () PART A May 25, 2011 [id number] [id number] AJY KRISHNA PATIENT MEDICARE ([facility]) MEDICARE () PART A May 25, 2011 PART A [id number] JAY KRISHNA PATIENT MEDICARE ([facility]) MEDICARE () PART A May 25, 2011 PART A [id number] JAY KRISHNA PATIENT MEDICARE ([facility]) MEDICARE () PART A May 25, 2011 PART A [id number] JAY KRISHNA PATIENT MEDICARE ([facility]) MEDICARE () PART A May 25, 2011 PART A [id number] JYA KRISHNA PATIENT MEDICARE (WNR) MEDICARE (M) PART A May 25, 2011 PART A [id number] [facility] JAY KRISHNA PATIENT MEDICARE (WNR) MEDICARE (M) PART A May 25, 2011 PART A [id number] [facility] JAY KRISHNA PATIENT Selected Encounter This section includes the information on record at [place] for the Encounter. Date/Time Encounter Type Encounter Description Reason Provider Source June 23, 2024 11:30 AM OFFICE O/P EST LOW 20 MIN PODIATRY ICD-10-CM E11.621 Type 2 diabetes mellitus with foot ulcer DAGOBERTO POZO [facility] Encounter Template Text not used by [place] Assessments - Encounter Diagnoses This section includes the primary and secondary diagnoses documented for the Encounter. 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 This section includes future appointments and [...] 27, 2024 08:00 AM AMBULATORY - MEDICINE [place] C [facility] [place] [facility] July 19, 2024 09:00 AM AMBULATORY - MEDICINE PR [facility] [place] [facility] Aug 08, 2024 09:30 AM AMBULATORY - MEDICINE [place] [facility] [place] [facility] Aug 09, 2024 11:00 AM AMBULATORY - MEDICINE PR [facility] [place] [facility] Sep 01, 2024 11:00 AM AMBULATORY - MEDICINE [facility] [place] [facility] Oct 10, 2024 11:00 AM AMBULATORY - MEDICINE [place] [facility] [place] [facility] Oct 26, 2024 10:00 AM AMBULATORY - MEDICINE [facility] Active, Pending, and Scheduled Orders This [...] Order LEVETIRACETAM (Keppra) BLOOD (RED-PLAIN) SERUM SP [facility] Vital Signs: All taken on the encounter date This section contains inpatient and outpatient Vital Signs collected on the date of the Encounter. Date/Time Temperature Pulse Blood Pressure Respiratory Rate SP02 Pain Height Weight Body Mass Index Source June 23, 2024 11:35 AM 97.4 [facility] June 23, 2024 10:42 AM 103 135/84 [facility] June 23, 2024 10:40 AM 86 145/104 [facility] Social History: Smoking Status (Most current) [...] took place. Date/Time Current Smoking Status Comment [facility] July 24, 2023 10:00 AM VA-TOBACCO FORMER USER [facility] Tobacco Use History This section includes a history of the smoking, or tobacco-related health factors, that were collected on or before the date of the Encounter. The data comes from the [place] facility where the Encounter took place. Date/Time Smoking Status/Tobac co Use Comment Facility July 24, 2023 10:00 AM PR-TOBACCO QUIT 15 YRS OR MORE [facility] July 14, 2022 03:30 PM VA-TOBACCO FORMER USER [facility] July 14, 2022 03:30 PM VA-TOBACCO QUIT 15 YRS OR MORE [facility] [place] [facility] Aug 05, 2021 01:00 PM VA-TOBACCO FORMER USER [facility] [place] [facility] Aug 05, 2021 01:00 PM VA-TOBACCO QUIT 5 TO < 15 YRS [facility] [place] [facility] Sep 09, 2019 01:25 PM VA-TOBACCO FORMER USER [facility] [place] [facility] Sep 09, 2019 01:25 PM VA-TOBACCO QUIT 5 TO < 15 YRS [facility] [place] [facility] Dec 04, 2017 10:18 AM VA-TOBACCO FORMER USER [facility] [place] [facility] Dec 04, 2017 10:18 AM VA-TOBACCO QUIT 5 TO < 15 YRS [facility] [place] [facility] May 29, 2017 09:09 AM QUIT TOBACCO USE > 7 YEARS AGO [facility] [place] [facility] Apr 23, 2015 08:21 AM QUIT TOBACCO USE > 7 YEARS AGO [facility] [place] [facility] Apr 23, 2015 08:21 AM QUIT TOBACCO USE 1-7 YEARS AGO [facility] [place] [facility] Mar 06, 2011 11:06 AM QUIT TOBACCO USE 1-7 YEARS AGO [facility] [place] [facility] Apr 08, 2010 10:56 AM CURRENT SMOKER cigar once in a while [facility] [place] [facility] Apr 08, 2010 10:56 AM V1-PT DECLINES REF TO TOBACCO CESS PRGM [facility] [place] [facility] Apr 08, 2010 10:56 AM V1-PT DECLINES TOBACCO CESSATION MEDS [facility] [place] [facility] Apr 08, 2010 10:56 AM V1-PT READY TO QUIT TOBACCO USE [facility] [place] [facility] Feb 21, 2009 09:16 AM CURRENT SMOKER cigar once in a while [facility] [place] [facility] Feb 21, 2009 09:16 AM V1-PT DECLINES REF TO TOBACCO CESS PRGM [facility] [place] [facility] Feb 21, 2009 09:16 AM V1-PT DECLINES TOBACCO CESSATION MEDS [facility] [place] [facility] Feb 21, 2009 09:16 AM V1-PT THINKING ABOUT QUIT TOBACCO USE [facility] Dec 16, 2007 09:15 AM QUIT TOBACCO USE 1-7 YEARS AGO [facility] Apr 01, 2007 11:08 AM QUIT TOBACCO USE 1-7 YEARS AGO [facility] Sep 28, 2006 08:52 AM QUIT TOBACCO USE IN PAST YEAR [facility] Apr 21, 2006 10:31 AM QUIT TOBACCO USE IN PAST YEAR August 2005 [facility] Dec 16, 2005 10:02 AM CURRENT SMOKER OCCASIONAL CIGAR [facility] May 19, 2001 03:50 PM CURRENT SMOKER see below [facility] Encounter Notes: All associated encounter notes This section contains the clinical notes associated to the Encounter. Date/Time Encounter Note(s) Provider Source June 23, 2024 11:33 AM PODIATRY NOTE: LOCAL TITLE: PODIATRY NOTE STANDARD TITLE: PODIATRY NOTE DATE OF NOTE: JUNE 23, 2024@11:33 ENTRY DATE: JUNE 23, 2024@11:33:05 AUTHOR: DAGOBERTO POZO EXP COSIGNER: URGENCY: STATUS: COMPLETED Podiatry [facility] Follow up Provider: Dagoberto Pozo Date: JUNE 23, 2024 JAY KRISHNA [address] [place] [address] [address], [place] [address] Jan [birth year] MALE [phone] PATIENT PHONE - Primary Care: JUAN OBRIEN Follow up Visit Concern: Blister called yesterday, offered same day tigist turned down and wanted to come today. see secure messaging. 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 Patient has done well with below-knee prosthesis, and has not had any significant problems with the left foot. Last seen 6 mons ago. Returns today for wound evaluation. Subjective: Patient describes a blood-filled blister that developed on the distal aspect of the second toe that when released left a significant amount of purpleish coagulated blood in the aftermath. It did not actively bleed thereafter. This developed yesterday. Patient denying any systemic signs of illness such as fevers chills nausea or vomiting or local signs such as purulent drainage malodor or discharge swelling or erythema or streaking erythema[lymphangitis]. Hx:[employer] FROM Sep TO Aug Service connections:Service Connected Disabilities with % Eligibility: SERVICE CONNECTED 50% to 100% VERIFIED Total S/C %: 70 SPINAL DISC CONDITION 40% S/C IMPAIRED HEARING 0% S/C TINNITUS 10% S/C INFLAMMATION OF EXTERNAL POPLITEAL NERVE 20% S/C INFLAMMATION OF EXTERNAL POPLITEAL NERVE 20% S/C Medical problems active: Active Problem Seizure R56.9 05/12/2024 JUAN OBRIEN Polyp of colon K63.5 10/29/2023 JUAN OBRIEN Long-term current use of anticoagul 02/04/2022 LATRICE WIN Atrial fibrillation I48.21 12/20/2019 MENDY GRIFFIN Primary erectile dysfunction N52.9 06/01/2018 JUAN OBRIEN History of amputation of leg above 10/01/2017 ROB OJEDA History of cholecystectomy R69. 12/08/2015 JASPAL WHEATLEY Obstructive sleep apnea syndrome G4 05/29/2017 JASPAL WHEATLEY Diabetic foot ulcer 250.80 10/13/2012 SHERRILL MYERS status post knee replacement 799.9 10/13/2012 SHERRILL MYERS Opiate Dependence * 304.00 01/14/2013 SHERRILL MYERS Diabetes mellitus (SNOMED CT 536760 12/04/2017 JUAN OBRIEN Atrial fibrillation (SNOMED CT 4943 12/04/2017 JUAN OBRIEN Benign essential hypertension (SNOM 12/08/2015 JASPAL WHEATLEY Family History of Ischemic Heart Di 07/11/2009 SHERRILL MYERS Obesity (SNOMED CT [id number]) E66.8 04/04/2019 JUAN OBRIEN Hyperlipidemia 272.4 07/11/2009 VIRGIL MANDUJANO Chronic Low Back Pain (ICD-9-CM 724 07/11/2009 SHERRILL MYERS Peripheral Neuropathy (ICD-9-CM 355 07/11/2009 SHERRILL MYERS Lorenzo Active mediciation: Active Outpatient Medications (including Supplies): Active Outpatient Medications Status 1) LEVETIRACETAM 500MG TAB TAKE ONE TABLET BY MOUTH TWICE DAILY ACTIVE Indication: FOR PARTIAL SEIZURES 2) METRONIDAZOLE 0.75% TOP GEL APPLY SMALL AMOUNT TOPICALLY ACTIVE TWICE DAILY Indication: FOR ACNE ROSACEA 3) MOISTURIZING (EQV-LUBRIDERM)UNSCENT LOT APPLY LIBERAL AMOUNT ACTIVE TOPICALLY DIRECTED Indication: DRY SKIN Active Non-VA Medications Status 1) Non-VA CLOPIDOGREL BISULFATE 75MG TAB 75MG BY MOUTH ONCE ACTIVE DAILY Indication: TO PREVENT BLOOD CLOTS 2) Non-VA FINASTERIDE 5MG TAB 5MG BY MOUTH ONCE DAILY ACTIVE 3) Non-VA FLUOXETINE HCL 20MG CAP 20MG BY MOUTH ONCE DAILY ACTIVE 4) Non-VA GABAPENTIN 300MG CAP 300MG BY MOUTH BEDTIME ACTIVE 5) Non-VA METOPROLOL SUCCINATE 200MG SA TAB 200MG BY MOUTH ONCE ACTIVE DAILY Indication: afibb 6) Non-VA OMEPRAZOLE 20MG EC CAP 20MG BY MOUTH TWICE DAILY ACTIVE BEFORE A MEAL 7) Non-VA OXYCODONE HCL 5MG TAB NOT SA 5MG BY MOUTH EVERY ACTIVE 8 HOURS NEEDED 8) Non-VA SEMAGLUTIDE 2MG/0.75ML INJ PEN 3ML 2MG SUBCUTANEOUSLY ACTIVE ONCE A WEEK Indication: FOR TYPE 2 DIABETES MELLITUS 9) Non-VA SIMVASTATIN 80MG TAB 40MG BY MOUTH ONCE DAILY ACTIVE 10) Non-VA TAMSULOSIN HCL 0.4MG CAP 0.4MG BY MOUTH ONCE DAILY ACTIVE 11) Non-VA VALSARTAN 160MG TAB 160MG BY MOUTH ONCE DAILY ACTIVE 14 Total Medications Allergies: Data on this list may not be complete. Please check JLV. FACILITY ALLERGY/ADR -------- [facility] AMITRIPTYLINE [facility] ERYTHRITOL [facility] GAB[facility]IN [facility] [place] [facility] AMITRIPTYLINE [facility] GABAPENTIN PE: Date Vital Measurement Qualifiers 06/23/2024 10:42 Pulse 103 BP 135/84 Other data: Last hemoglobin A1c under 6[5.24 April 2024] Physical exam: Right below-knee amputation with prosthesis Left foot: Wound: Shallow epithelializing wound at distal aspect of left second toe measuring approximately 4 mm x 3 mm by less than a millimeter deep without active bleeding drainage or discharge no tunneling or undermining no exposed fat tendon or bone. The digit is slightly contracted but not such that the distal area would be weightbearing. There is an additional small skin tear wound on the dorsal aspect of the toe measuring about 2 mm x 1 mm by less than millimeter deep with similar properties. The digit is not red swollen or otherwise discolored. Left foot deformity as previously described in other notes with enlarged ankylosed first toe IP joint, nail dystrophy, but presently no infectious or inflamed nail conditions, webspaces otherwise clear, no other areas of skin breakdown callus or high-pressure concerns, dense peripheral neuropathy is again appreciated, pulses are full 2+ DP PT and skin is otherwise warm pink and healthy appearing. Impression: -Diabetic foot ulcer left second toe stable likely as a result of friction blister noting the patient is anticoagulated, as well as on clopidogrel. Presently there is no sign of infection the ulcer appears to be healing and epithelializing, and should go on to heal with local wound care and protection. Plan: -Cleanse wound dressed with bacitracin and Band-Aids demonstrating technique to patient and and how to apply. -Patient reports having topical bacitracin at home and Band-Aids for use. -Patient should limit activity until area is healed -Patient should come back Thursday for follow-up. Although I believe this to be a self-limiting event patient is very high risk and already has lost 1 leg to infection. So we will keep a tight close eye on. Also at this visit a consult was placed to patient's current prosthetic provider to provide the patient with extra-depth footwear and a custom triple density Plastizote insert for the left foot. Return sooner if any fever chills nausea, vomiting increased redness, swelling, drianage, pain, or flu like symptoms, or go to nearest emergency room / urgent care for evaluation. -all sharpes cleared, processed and or disposed of according to SOP/MCP. -As part of the service the pertinent [...] as results of the physical exam and business development consultant opinions and recommendations as sought. Alternatives [...] -The on this visit was given information [employer] service and encouraged to enroll if not already having done so. /daniela/ DAGOBERTO POZO DPM PODIATRY ATTENDING Signed: 06/24/2024 10:27 DAGOBERTO POZO [facility]
--- OUTSIDE RECORDS SUMMARY | 2024-06-29 12:29 | XMS_ITS | Encounter Summary ---
Author Name [facility] [place] [facility] [place] Address [address] [place] [address] Care Team Providers Care Scowman Name Role Phone JUAN OBRIEN Primary Care Provider Unavaileddie [facility] Insurance Providers: All historical and current Section [...] JESSE FAMIL Y Mar 07, 2000 [id number] [phone] JAY KRISHNA PATIENT ANTHEM BCBS FEDERAL PREFERRED PROVIDER ORGANIZAT ION (PPO) STAND JESSE FAMIL Y Mar 07, 2000 105 [id number] JAY KRISHNA PATIENT ANTHEM BCBS FEDERAL PREFERRED PROVIDER ORGANIZAT ION (PPO) STAND JESSE SELF Mar 07, 2000 105 [id number] JAY KRISHNA PATIENT BCBS [place] FEP PREFERRED PROVIDER ORGANIZAT ION (PPO) PSHB STAND JESSE FAMIL Y Feb 24, 2024 [id number] JAY KRISHNA PATIENT [place] PREFERRED PROVIDER ORGANIZAT ION (PPO) PSHB STAND JESSE FAMIL Y Feb 24, 2024 [id number] [phone] JAY KRISHNA PATIENT [place] DENTAL DENTAL INSURANCE STAND JESSE Mar 07, 2000 DENTAL [id number] [phone] JAY KRISHNA PATIENT [place] FEDERAL PREFERRED PROVIDER ORGANIZAT ION (PPO) PSHB STAND JESSE FAMIL Y Feb 24, 2024 [id number] JAY KRISHNA PATIENT [place] FEP BCBS PRESCRIPT ION CAR[place] FEPRX PLAN Mar 07, 2000 [id number] JAY KRISHNA PATIENT [place] FEPRX PLAN PRESCRIPT ION [place] FEPRX Feb 23, 2010 [id number] JAY KRISHNA PATIENT [place] FEPRX PLAN PRESCRIPT ION [place] FEPRX Mar 07, 2000 [id number] [phone] JAY KRISHNA PATIENT [place]-F EP BCBS PRESCRIPT ION BCBS FEP Feb 23, 2010 [id number] [phone] JAY KRISHNA PATIENT MEDICARE ([facility] MEDICARE () PART A May 25, 2011 PART A [id number] [facility] [phone] JAY KRISHNA PATIENT MEDICARE ([facility]) MEDICARE () PART A May 25, 2011 [id number] [id number] [phone] JAY KRISHNA PATIENT MEDICARE ([facility]) MEDICARE () PART A May 25, 2011 PART A [id number] JAY KRISHNA PATIENT MEDICARE ([facility]) MEDICARE () PART A May 25, 2011 PART A [id number] JAY KRISHNA PATIENT MEDICARE ([facility]) MEDICARE () PART A May 25, 2011 PART A [id number] JAY KRISHNA PATIENT MEDICARE ([facility]) MEDICARE () PART A May 25, 2011 PART A [id number] JAY KRISHNA PATIENT MEDICARE (WNR) MEDICARE (M) PART A May 25, 2011 PART A [id number] [facility] JAY KRISHNA PATIENT MEDICARE (WNR) MEDICARE (M) PART A May 25, 2011 PART A [id number] [facility] JAY KRISHNA PATIENT Selected Encounter This section includes the information on record at [place] for the Encounter. Date/Time Encounter Type Encounter Description Reason Provider Source June 27, 2024 08:00 AM OFFICE O/P EST SF 10 MIN PODIATRY ICD-10-CM E11.621 Type 2 diabetes mellitus with foot ulcer DAGOBERTO POZO Skyla Encounter Template Text not used by [place] Assessments - Encounter Diagnoses This section includes the primary and secondary diagnoses documented for the Encounter. 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 This section includes future appointments and future orders which are active, pending or scheduled. Future Appointments This section includes appointments that were scheduled to occur 6 months from the date of the Encounter, up to a maximum of 20 appointments. The data comes from all [place] treatment facilities. Appointment Date/Time Appointment Type Appointme nt Facility Name July 19, 2024 09:00 AM AMBULATORY - MEDICINE [place] [facility] [place] [facility] Aug 08, 2024 09:30 AM AMBULATORY - MEDICINE [place] [facility] [place] [facility] Aug 09, 2024 11:00 AM AMBULATORY - MEDICINE [place] [facility] [place] [facility] Sep 01, 2024 11:00 AM AMBULATORY - MEDICINE [place] [facility] [place] [facility] Oct 10, 2024 11:00 AM AMBULATORY - MEDICINE [place] [facility] [place] [facility] Oct 26, 2024 10:00 AM AMBULATORY - MEDICINE [place] [facility] [place] [facility] Active, Pending, and Scheduled Orders This section includes a listing of several types of active, pending, and scheduled orders, including clinic medications orders, diagnostic test orders, procedure orders and consult orders; where the start date of the order is 45 days before the date of the Encounter or 45 days after the date of theEncounter. The data comes from all [place] treatment facilities. Test Date/Time Test Type Test Details Facility Name June 27, 2024 08:15 AM Laboratory - Chemistry Order LEVETIRACETAM (Keppra) BLOOD (RED-PLAIN) SERUM SP [facility] Vital Signs: All taken on the encounter date This section contains inpatient and outpatient Vital Signs collected on the date of the Encounter. Date/Time Temperature Pulse Blood Pressure Respiratory Rate SP02 Pain Height Weight Body Mass Index Source June 27, 2024 08:18 AM 97.2 80 138/80 98 3 [facility] Social History: Smoking Status (Most current) and Tobacco Use (All prior to encounter date) This section includes the most current, and the historical, smoking and tobacco- related health factors from the [place] facility where the Encounter took place. Current Smoking Status This section includes the most current smoking, or tobacco-related health factor, from the [place] facility where the Encounter took place. Date/Time Current Smoking Status Comment [facility] July 24, 2023 10:00 AM [place]-TOBACCO QUIT 15 YRS OR MORE [facility] Tobacco Use History This section includes a history of the smoking, or tobacco-related health factors, that were collected on or before the date of the Encounter. The data comes from the [place] facility where the Encounter took place. Date/Time Smoking Status/Tobac co Use Comment Facility July 24, 2023 10:00 AM VA-TOBACCO QUIT 15 YRS OR MORE [facility] [place] [facility] July 14, 2022 03:30 PM VA-TOBACCO FORMER USER [place] [facility] [place] [facility] July 14, 2022 03:30 PM VA-TOBACCO QUIT 15 YRS OR MORE [place] [facility] [place] [facility] Aug 05, 2021 01:00 PM [facility] Aug 05, 2021 01:00 PM VA-TOBACCO QUIT 5 TO < 15 YRS [place] [facility] [place] [facility] Sep 09, 2019 01:25 PM VA-TOBACCO FORMER USER [place] [facility] [place] [facility] Sep 09, 2019 01:25 PM VA-TOBACCO QUIT 5 TO < 15 YRS [facility] [place] [facility] Dec 04, 2017 10:18 AM VA-TOBACCO FORMER USER [place] [facility] [facility] Dec 04, 2017 10:18 AM VA-TOBACCO QUIT 5 TO < 15 YRS [place] [facility] [place] [facility] May 29, 2017 09:09 AM QUIT TOBACCO USE > 7 YEARS AGO [place] [facility] [place] [facility] Apr 23, 2015 08:21 AM QUIT TOBACCO USE > 7 YEARS AGO [place] [facility] [place] [facility] Apr 23, 2015 08:21 AM QUIT TOBACCO USE 1-7 YEARS AGO [place] [facility] [facility] Mar 06, 2011 11:06 AM QUIT TOBACCO USE 1-7 YEARS AGO [place] [facility] [place] [facility] Apr 08, 2010 10:56 AM CURRENT SMOKER cigar once in a while [facility] [place] [facility] Apr 08, 2010 10:56 AM V1-PT [facility] [place] [facility] Apr 08, 2010 10:56 AM V1-PT DECLINES TOBACCO CESSATION MEDS [facility] [place] [facility] Apr 08, 2010 10:56 AM V1-PT READY TO QUIT TOBACCO USE [facility] [place] [facility] Feb 21, 2009 09:16 AM CURRENT SMOKER cigar once in a while [facility] [place] [facility] Feb 21, 2009 09:16 AM V1-PT DECLINES REF TO TOBACCO CESS PRGM [place] [facility] [facility] Feb 21, 2009 09:16 AM V1-PT DECLINES TOBACCO CESSATION MEDS [place] [facility] [place] [facility] Feb 21, 2009 09:16 AM V1-PT THINKING ABOUT QUIT TOBACCO USE [place] [facility] [facility] Dec 16, 2007 09:15 AM QUIT TOBACCO USE 1-7 YEARS AGO [place] [facility] [facility] Apr 01, 2007 11:08 AM QUIT TOBACCO USE 1-[facility] Sep 28, 2006 08:52 AM QUIT TOBACCO USE [facility]ST [facility] Apr 21, 2006 10:31 AM QUIT TOBACCO USE IN PAST YEAR August 2005 [facility] Dec 16, 2005 10:02 AM CURRENT SMOKER OCCASIONAL CIGAR [facility] May 19, 2001 03:50 PM CURRENT SMOKER see below [facility] Encounter Notes: All associated encounter notes This section contains the clinical notes associated to the Encounter. 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 Patient was started on bacitracin and Band-Aid dressings and asked to come back today for follow-up make sure things are going in the right direction. Subjective: Patient states that he is pleased with the appearance of the wound and feels it is healing nicely denies any systemic or local signs of infection Hx:[employer] FROM Sep TO Aug Service connections:Service Connected Disabilities with % Eligibility: SERVICE CONNECTED 50% to 100% VERIFIED Total S/C %: 70 TINNITUS 10% S/C SPINAL DISC CONDITION 40% S/C INFLAMMATION OF EXTERNAL POPLITEAL NERVE 20% S/C INFLAMMATION OF EXTERNAL POPLITEAL NERVE 20% S/C IMPAIRED HEARING 0% S/C Medical problems active: Active Problem Seizure R56.9 05/12/2024 JUAN OBRIEN Polyp of colon K63.5 10/29/2023 JUAN OBRIEN Long-term current use of anticoagul 02/04/2022 QUIRINO,LATRICE [place] Atrial fibrillation I48.21 12/20/2019 MENDY GRIFFIN Primary erectile dysfunction N52.9 06/01/2018 JUAN OBRIEN History of amputation of leg above 10/01/2017 ROB OJEDA History of cholecystectomy R69. 12/08/2015 JASPAL WHEATLEY Obstructive sleep apnea syndrome G4 05/29/2017 JASPAL WHEATLEY Diabetic foot ulcer 250.80 10/13/2012 SHERRILL MYERS status post knee replacement 799.9 10/13/2012 SHERRILL MYERS Opiate Dependence * 304.00 01/14/2013 SHERRILL MYERS Diabetes mellitus (SNOMED CT 513659 12/04/2017 JUAN OBRIEN Atrial fibrillation (SNOMED CT 4943 12/04/2017 JUAN OBRIEN Benign essential hypertension (SNOM 12/08/2015 JASPAL WHEATLEY Family History of Ischemic Heart Di 07/11/2009 SHERRILL MYERS Obesity (SNOMED CT [id number]) E66.8 04/04/2019 JUAN OBRIEN Hyperlipidemia 272.4 07/11/2009 VIRGIL MANDUJANO Chronic Low Back Pain (ICD-9-CM 724 07/11/2009 SHERRILL MEYRS Peripheral Neuropathy (ICD-9-CM 355 07/11/2009 SHERRILL MYERS Active mediciation: Active Outpatient Medications (including Supplies): [...] complete. Please check JLV. FACILITY ALLERGY/ADR -------- [facility] D AMITRIPTYLINE [facility] D ERYTHRITOL [facility] D GABAPENTIN [place] [facility] [place] [facility] ERYTHROMYCIN [facility] AMITRIPTYLINE [facility] GABAPENTIN PE: Well-appearing Wound on the dorsal aspect of the toe which was a skin tear from Band-Aid is all healed now the distal blister wound is now 75% epithelialized shows no sign of infection needs no debridement no surrounding erythema or edema no drainage or discharge. Remainder of the foot is stable Impression: -Healing blister second toe left foot in PAVE 3 patient at high risk for amputation Plan: -Patient will continue daily dressing changes with bacitracin and Band-Aids until fully healed Recommended follow-up patient has of an appointment with me on August 09 already scheduled he will keep that appointment Return sooner if any fever chills nausea, [...] as results of the physical exam and [employer] consultant opinions and recommendations as sought. Alternatives [...] on this visit was given information [employer] service and encouraged to enroll if not already having done so. /daniela/ DAGOBERTO POZO DPM PODIATRY ATTENDING Signed: 06/27/2024 08:18 D[facility]OBERTO POZO [facility]
--- OUTSIDE RECORDS SUMMARY | 2024-06-29 12:29 | XMS_ITS ---
Author Name [facility] [place] [facility] [place] Address [address] [place] [address] Care Team Providers Care Linux Admin Name Role Phone JUAN OBRIEN Primary Care Provider Unavaileddie [facility] Insurance Providers: All historical and current Section [...] JESSE FAMIL Y Mar 07, 2000 [id number] [phone] JAY KRISHNA PATIENT ANTHEM BCBS FEDERAL PREFERRED PROVIDER ORGANIZAT ION (PPO) STAND JESSE FAMIL Y Mar 07, 2000 [id number] JAY KRISHNA PATIENT ANTHEM BCBS FEDERAL PREFERRED PROVIDER ORGANIZAT ION (PPO) STAND JESSE SELF Mar 07, 2000 105 [id number] JAY KRISHNA PATIENT BCBS [place] F[place] PREFERRED PROVIDER ORGANIZAT ION (PPO) PSHB STAND JESSE FAMIL Y Feb 24, 2024 [id number] JAY KRISHNA PATIENT [place] PREFERRED PROVIDER ORGANIZAT ION (PPO) PSHB STAND JESSE FAMIL Y Feb 24, 2024 [id number] [phone] JAY KRISHNA PATIENT [place] FEP DENTAL DENTAL INSURANCE STAND JESSE Mar 07, 2000 DENTAL [id number] JAY KRISHNA PATIENT [place] FEDERAL PREFERRED PROVIDER ORGANIZAT ION (PPO) PSHB STAND JESSE FAMIL Y Feb 24, 2024 33E [id number] [phone] JAY KRISHNA PATIENT [place] FEP BCBS PRESCRIPT ION [place] FEPRX PLAN Mar 07, 2000 [id number] JAY KRISHNA PATIENT [place] FEPRX PLAN PRESCRIPT ION CAR[place] FEPRX Feb 23, 2010 [id number] JAY KRISHNA PATIENT [place] FEPRX PLAN PRESCRIPT ION CAR[place] AR[place] FEPRX Mar 07, 2000 [id number] [phone] JAY KRISHNA PATIENT [place]-F EP BCBS PRESCRIPT ION BCBS FEP Feb 23, 2010 [id number] JAY KRISHNA PATIENT MEDICARE ([facility]) MEDICARE () PART A May 25, 2011 PART A [id number] [facility] JAY KRISHNA PATIENT MEDICARE ([facility]) MEDICARE () PART A May 25, 2011 [id number] [id number] JAY KRISHNA PATIENT MEDICARE ([facility]) MEDICARE () PART A May 25, 2011 PART A [id number] [phone] JAY KRISHNA PATIENT MEDICARE ([facility]) MEDICARE () PART A May 25, 2011 PART A [id number] JAY KRISHNA PATIENT MEDICARE ([facility]) MEDICARE () PART A May 25, 2011 PART A [id number] JAY KRISHNA PATIENT MEDICARE ([facility]) MEDICARE () PART A May 25, 2011 PART A [id number] [phone] JAY KRISHNA PATIENT MEDICARE (WNR) MEDICARE (M) PART A May 25, 2011 PART A [id number] [facility] JAY KRISHNA PATIENT MEDICARE (WNR) MEDICARE (M) PART A May 25, 2011 PART A [id number] JAY KRISHNA PATIENT Selected Encounter This section includes the information on record at [place] for the Encounter. Date/Time Encounter Type Encounter Description Reason Provider Source July 24, 2023 10:00 AM OFFICE O/P EST MOD 30 MIN PRIMARY CARE/MEDICINE ICD-10-CM R11.0 Nausea LUIS OBRIEN [facility] Encounter Template Text not used by [place] Assessments - Encounter Diagnoses This section includes the primary and secondary diagnoses documented for the Encounter. Date/Time Primary/Secondary Diagnosis Diagnosis Name Provider Source Aug 24, 2023 07:15 AM PRIMARY Nausea [facility] Plan of Treatment: Future Appointments (+ 6 months) and Future Tests (+/- 45 days) The Plan of Treatment section includes future care activities for the patient from all [place] treatmentfacilities. This section includes future appointments and [...] 11, 2023 08:30 AM AMBULATORY - MEDICINE [place] [facility] [place] [facility] Sep 23, 2023 08:30 AM AMBULATORY MEDICINE [place] [facility] [place] [facility] Oct 01, 2023 11:00 AM AMBULATORY MEDICINE [place] [facility] [place] [facility] Dec 25, 2023 11:30 AM AMBULATORY MEDICINE [facility] [place] [facility] Lab Results: +/- 30 days of the encounter This section includes the Chemistry and Hematology Lab Results on record with [place] for the patient. Radiology Reports and Pathology Reports are provided separately, in subsequent sections. Lab Results This section contains the Chemistry/Hematology Results that were resulted 30 days before or 30 daysafter the date of the Encounter. Date/Time Source Result Type Result - Unit Interpretation Reference Range Specimen Type Comment Aug 11, 2023 08:54 AM [facility] PSA SERUM Specimen Type: SERUM No comment entered. Ordering Provider: JUAN OBRIEN Report Released Date/Time: Aug 11, 2023 08:42 AM Reporting Lab: [facility] [address] [facility] [address] Performing Lab: [address] [address] PSA 3.60 ng/mL 0.00-4.00 Aug 11, 2023 08:54 AM [facility] LIPID PANEL, NON FASTING SERUM Specimen Type: SERUM No comment entered. Ordering Provider: JUAN OBRIEN Report Released Date/Time: Aug 11, 2023 08:42 AM Reporting Lab: [facility] [address] [facility] [address] Performing Lab: [address] [address] CHOLESTEROL 112 mg/dL TRIGLYCERIDE 127 mg/dL 0-150 LDL calculated 52 mg/dL 0-129 CHOL/HDL 3.2 HDL CHOLESTEROL 35 mg/dL L 40-60 Aug 11, 2023 08:54 AM [facility] LIVER FUNCTION SERUM Specimen Type: SERUM No comment entered. Ordering Provider: JUAN OBRIEN Report Released Date/Time: Aug 11, 2023 08:42 AM Reporting Lab: [address] [address] Performing Lab: [address] [address] PROTEIN,TOTAL 7.1 g/dL 6.0-8.3 ALBUMIN 3.9 g/dL 3.5-5.0 ALKALINE PHOSPHATASE 66 U/L 40-150 AST 23 U/L 5-34 ALT 20 U/L BILIRUBIN, TOTAL 1.9 mg/dL H 0.2-1.2 BILIRUBIN, DIRECT 0.7 mg/dL H 0-0.5 Aug 11, 2023 08:54 AM [facility] PT & INR (PROTIME) PLASMA Specimen Type: PLASM A No comment entered. Ordering Provider: JUAN OBRIEN Report Released Date/Time: Aug 11, 2023 08:42 AM Reporting Lab: [address] [address] Performing Lab: [address] [address] INR 2.1 PROTIME 23.2 s H 10.0-13.1 Aug 11, 2023 08:54 AM [facility] BASIC METABOLIC PANEL (non-fasting) SERUM Spe cimen Type: SERUM No comment entered. Ordering Provider: JUAN OBRIEN Report Released Date/Time: Aug 11, 2023 08:42 AM Reporting Lab: [address] [address] Performing Lab: [address] [address] UREA NITROGEN 10 mg/dL 7-25 GLUCOSE 114 mg/dL H 65-100 SODIUM 137 mmol/L 135-145 POTASSIUM 4.0 mmol/L 3.5-5.0 CHLORIDE 106 mmol/L 100-110 CO2 22 meq/L 20-30 CREATININE, Serum 0.86 mg/dL 0.50-1.40 eGFR(CKD-EPI 2020) >90 mL/min >60 Aug 11, 2023 08:54 AM [facility] CBC BLOOD Specimen Type: BLOOD No comment entered. Ordering Provider: JUAN OBRIEN Report Released Date/Time: Aug 11, 2023 08:42 AM Reporting Lab: [address] [address] Performing Lab: [address] [address] WBC 6.62 10*3/uL 4.50-11.00 RBC 4.77 10*6/uL 4.23-5.66 HGB 15.9 g/dL 12.8-17 HCT 45.1 39.2-50.4 MCV 94.5 fL 82-99 MCHC 35.3 g/dL H 30.8-35.1 PLT 229 10*3/uL 140-360 RDW-CV 12.9 12.0-16.0 MCH 33.3 pg H 26.2-32.6 Aug 11, 2023 08:54 AM [facility] MICROALBUMIN CREATININE RATIO PANEL URINE Spe cimen Type: URINE No comment entered. Ordering Provider: JUAN OBRIEN Report Released Date/Time: Aug 11, 2023 08:42 AM Reporting Lab: [facility] [address] [facility] [address] Performing Lab: [facility] [address] [facility] [address] MICROALBUMIN/CREATININE RATIO 7.1 mg/g 0 -29.9 MICROALBUMIN,QUANTITATIVE 2.5 mg/dL RR U NAVAIL CREATININE URINE 349.96 mg/dL Aug 11, 2023 08:54 AM [facility] HEMOGLOBIN A1C PANEL BLOOD Specimen Type: BLO OD Comment: Values obtained from A1C measurements can vary. For atypical A1C assays, a reported value of 7.0 could actually be between 6.72 and 7.28 if measured by a reference method. A reported value of 9.0 could actually be between 8.73 and 9.27. Ref: http://www.ngsp.org/CAPdata.asp Ordering Provider: JUAN OBRIEN Report Released Date/Time: Aug 11, 2023 08:42 AM Reporting Lab: [facility] [address] [facility] [address] Performing Lab: [address] [address] HEMOGLOBIN A1C 5.0 4.0-5.6 July 24, 2023 09:55 AM [facility] GLUCOSE, Fingerstick BLOOD Specimen Type: BLO OD Comment: For GLU FinTest performed by: Bob Arroyo For GLU Fin Meter #: [id number] Ordering Provider: JUAN OBRIEN Report Released Date/Time: July 24, 2023 10:10 AM Reporting Lab: [address] [address] Performing Lab: [address] [address] GLUCOSE, Fingerstick 112 mg/dL H 65-100 Vital Signs: All taken on the encounter date This section contains inpatient and outpatient Vital Signs collected on the date of the Encounter. Date/Time Temperature Pulse Blood Pressure Respiratory Rate SP02 Pain Height Weight Body Mass Index Source July 24, 2023 10:25 AM 125 150/106 98 [facility] [place] [facility] July 24, 2023 09:41 AM 100 152/108 [facility] [place] [facility] July 24, 2023 09:35 AM 98.3 20 97 0 75 335 42 [facility] [place] [facility] Social History: Smoking Status (Most [...] took place. Date/Time Current Smoking Status Comment [facility] it July 24, 2023 10:00 AM VA-TOBACCO FORMER USER [place] [facility] [place] [facility] Tobacco Use History This section includes a history of the smoking, or tobacco-related health factors, that were collected on or before the date of the Encounter. The data comes from the [place] facility where the Encounter took place. Date/Time Smoking Status/Tobac co Use Comment Facility July 24, 2023 10:00 AM VA-TOBACCO QUIT 15 YRS OR MORE [facility] [place] [facility] July 14, 2022 03:30 PM VA-TOBACCO FORMER USER [facility] [place] [facility] July 14, 2022 03:30 PM VA-TOBACCO QUIT 15 YRS OR MORE [facility] [place] [facility] Aug 05, 2021 01:00 PM VA-TOBACCO FORMER USER [facility] [place] [facility] Aug 05, 2021 01:00 PM VA-TOBACCO QUIT 5 TO < 15 YRS [facility] [place] [facility] Sep 09, 2019 01:25 PM VA-TOBACCO FORMER USER [facility] [place] [facility] Sep 09, 2019 01:25 PM VA-TOBACCO QUIT 5 TO < 15 YRS [facility] [place] [facility] Dec 04, 2017 10:18 AM VA-TOBACCO FORMER USER [place] [facility] [place] [facility] Dec 04, 2017 10:18 AM VA-TOBACCO QUIT 5 TO < 15 YRS [place] [facility] [place] [facility] May 29, 2017 09:09 AM QUIT TOBACCO USE > 7 YEARS AGO [facility] [place] [facility] Apr 23, 2015 08:21 AM QUIT TOBACCO USE > 7 YEARS AGO [facility] [place] [facility] Apr 23, 2015 08:21 AM QUIT TOBACCO USE 1-7 YEARS AGO [facility] [place] [facility] Mar 06, 2011 11:06 AM QUIT TOBACCO USE 1-7 YEARS AGO [place] [facility] [place] [facility] Apr 08, 2010 10:56 AM CURRENT SMOKER cigar once in a while [facility] [place] [facility] Apr 08, 2010 10:56 AM V1-PT [facility] [place] [facility] Apr 08, 2010 10:56 AM V1-PT DECLINES TOBACCO CESSATION MEDS [facility] [place] [facility] Apr 08, 2010 10:56 AM V1-PT READY TO QUIT TOBACCO USE [facility] [place] [facility] Feb 21, 2009 09:16 AM CURRENT SMOKER cigar once in a while [facility] [place] [facility] Feb 21, 2009 09:16 AM V1-PT DECLINES REF TO TOBACCO CESS PRGM [facility] [place] [facility] Feb 21, 2009 09:16 AM V1-PT DECLINES TOBACCO CESSATION MEDS [facility] [place] [facility] Feb 21, 2009 09:16 AM V1-PT THINKING ABOUT QUIT TOBACCO USE [facility] [place] [facility] Dec 16, 2007 09:15 AM QUIT TOBACCO USE 1-7 YEARS AGO [facility] [place] [facility] Apr 01, 2007 11:08 AM QUIT TOBACCO USE 1-7 YEARS AGO [facility] [place] [facility] Sep 28, 2006 08:52 AM QUIT TOBACCO USE IN PAST YEAR [facility] [place] [facility] Apr 21, 2006 10:31 AM QUIT TOBACCO USE IN PAST YEAR August 2005 [facility] Dec 16, 2005 10:02 AM CURRENT SMOKER OCCASIONAL CIGAR [facility] May 19, 2001 03:50 PM CURRENT SMOKER see below [facility] Encounter Notes: All associated encounter notes [...] ALS called NURSE to NURSE report to [facility] Paperwork sent and faxed /es/ BOB ARROYO REGISTERED NURSE Signed: 07/24/2023 10:48 BOB ARROYO [facility] [place] [facility] July 24, 2023 10:14 AM URGENT CARE NOTE: LOCAL TITLE: INTERFACILITY TRANSFER FORM [id number] [facility] STANDARD TITLE: URGENT CARE NOTE [...] 1026-49B consent form MUST BE COMPLETED in [facility] for ALL TRANSFERS including patients transferred under emergemcy/ implied consent. Consent for transfer obtained: YES Patient Consent obtained from: Patient SECTION - DECISION Transfer via community EMS Name of accepting LUIS (PINKY) or Point of Contact: Facility patient is being transferred to: Other: [facility] ER Date and time transfer is to occur: June@10:16 Unit patient to be transferred to: Contact phone number for accepting LUIS (PINKY) or POC: SECTION VII - Information to be sent with patient: Transfer note (Interfacility transfer note(s) [id number] Provider and Nurse) Medication lists including an active patient medication list and any medications given to the patient prior to transfer Copy of patient's (or legally responsible person acting on the patient's behalf) informed consent to transfer with [place] Form [id number] Documentation of the patient's advance directive made prior to transfer, if any Copy of any State-authorized portable order for life-sustaining treatment, if available /daniela/ Juan Obrien DNP, PEARL GLUE DRIER-BC, CNL Primary Care Nurse Practitioner Signed: 07/24/2023 10:17 Receipt Acknowledged By: 07/28/2023 13:58 /daniela/ Geri Diallo MD INTERNAL MEDICINE and RHEUMATOLOGY JUAN OBRIEN [place] [facility] [place] [facility] July 24, 2023 09:55 AM PRIMARY CARE NURSE PRACTITIONER OUTPATIENT NOTE: LOCAL TITLE: NURSE PRACTITIONER OUTPATIENT NOTE STANDARD TITLE: PRIMARY CARE NURSE PRACTITIONER OUTPATIENT NOTE DATE OF NOTE: JULY 24, 2023@09:55 ENTRY DATE: JULY 24, 2023@09:55:46 AUTHOR: JUAN OBRIEN EXP COSIGNER: URGENCY: STATUS: COMPLETED NURSE PRACTITIONER OUTPATIENT NOTE Has ADDENDA Chief complaint: Patient is a 63 year old . HPI: Pleasant male [place] here to follow up. Noted to be [...] gets elsewhere 10. Diabetes mellitus (SNOMED CT 40403000) 11. Atrial fibrillation (SNOMED CT 64149245) 12. Benign essential hypertension (SNOMED CT 9985111) 13. Family History of Ischemic Heart Disease 14. Obesity (SNOMED CT 509517282) 15. Hyperlipidemia and metabolic syndrome 16. Chronic [...] 09:35)BMI: 42.0335 lb [151.95 kg] (07/24/2023 09:35) is alert and oriented X3 Cardiovasc: 2plus carotids without bruits, no JVD Heart Reguler rate and rhythm NL S1S2 no S3 or murmur Respiration: Normal respiratory effort, lungs clear Assessment/plan: Active problems - Computerized Problem List is the source for the following: Nausea, hypertension, diaphoresis - refer to ER. /es/ Juan Obrien DNP, PEARL GLUE DRIER-BC, CNL Primary Care Nurse Practitioner Signed: 07/24/2023 [...] Dependence * 10. Diabetes mellitus (SNOMED CT 67534514) 11. Atrial fibrillation (SNOMED CT 51457871) 12. Benign essential hypertension (SNOMED CT 3734489) 13. Family History of Ischemic Heart Disease 14. Obesity (SNOMED CT 168886479) 15. Hyperlipidemia 16. Chronic Low Back Pain [...] Immunization Series Date Facility Reaction Info COVID-19 (Style for Hire), MRNA, LNP-S, * 2 [facility]2020 [facility] <C> COVID-19 (Style for Hire), MRNA, LNP-S, * 1 05/01/2020 [facility] [...] IMAGING REPORTS SUMMARY pg. 1 JAY KRISHNA [id number] : 1960 II - Imaging Impression (max 1 occurrence) Date Procedure CPT Status Case # 07/30/2022 CT LOWER EXTREMITY W/CONT [id number] Verified 241 No popliteal fossa mass or residual fluid collection identified, as described above. IP - Imaging Profile 07/30/2022 CT LOWER EXTREMITY W/CONT CPT Code: 47825 Interpreting Staff: DEMARCO SIMS JR Exam Case Number: [id number] Exam Status: COMPLETE Rpt Status: VERIFIED Technologist: MARINA ATKINSON Reason for Study: R popliteal fossa mass. History: Date Procedure CPT Status Case # 07/14/2022 EXTREMITY, NONVASCULAR [id number] Verified 26 (COMPLETE) Solid hyperechoic masslike density [...] NONVASCULAR (COMPLETE) Procedure Modifier: RIGHT CPT Code: 48996 Interpreting Staff: RADIOLOGY,OUTSIDE Exam Case Number: [id number] Exam Status: COMPLETE Rpt Status: VERIFIED Technologist: SHANE TREVIZO Reason for Study: R popliteal fossa History: [place] with fluctuant mass (approx 3cm) with noted 5mm surface violaceous papule (sometimes bleeds per report), concern for thrombosed varicosity vs other. s/p Right below the knee amputation Report: EXTREMITY, NONVASCULAR (COMPLETE) HISTORY: R popliteal fossa COMPARISON: None available TECHNIQUE: Sonographic imaging of the right popliteal fossa was performed at the local [place] facility. 14 still images and 1 cine clips were received by the [place] National Teleradiology Program (NTP) for interpretation. Findings/ Impression: Solid hyperechoic masslike density in the right popliteal fossa measuring 4.2 x 1.7 cm with internal hypoechoic foci, of unclear clinical significance. Recommend correlation with dedicated CT scan. READING PHYSICIAN: Ashish Thacker MD -[id number] 07/15/2022 8:02 EDT [facility] National Teleradiology Program [phone] (For Medical Practitioner Use Only) Attention Patients / Veterans: If you have questions or concerns about these test results, please contact your ordering provider or primary care team. 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 EMERGENCY ROOMS Emergency Room FAX # Tel # ALYSE Lang [phone] [facility] [phone] [facility] [phone] Kee Valentine [phone] Julio [phone] Addie [phone] [place] [phone] /es/ ADIN OWEN ADVANCED MAINFRAME CONSULTANT Signed: 07/24/2023 10:10 [place]UAN OBRIEN [place] [facility] [place] [facility] July 24, 2023 09:39 AM PREVENTIVE MEDICINE NURSING NOTE: LOCAL TITLE: CLINICAL REMINDERS/NURSING STANDARD TITLE: PREVENTIVE MEDICINE NURSING NOTE DATE OF NOTE: JULY 24, 2023@09:39 ENTRY DATE: JULY 24, 2023@09:39:16 AUTHOR: SADIQ SERRATOIGNER: URGENCY: STATUS: COMPLETED Advance Directive Screen MH AD: Patient does not have a completed advance directive on file at any facility, [facility] or outside. S/he is not interested in completing one at this time. The patient received education about Advance Directives and written notification of his/her rights. Suicide Screen: C-SSRS Screening [place]-Suicide Severity Rating Scale (C-SSRS Screener) 1. Over [...] Not worried about housing near future The [place] reports the following: Within the past 12 [...] one occasion in the past year? Never /daniela/ Sadiq Serrato, Health Metal Weigher WHITE METAL CORROSION PROOFER,PRIMARY CARE Signed: 07/24/2023 09:42 SADIQ SERRATO [facility]
--- OUTSIDE RECORDS SUMMARY | 2024-06-29 12:29 | XMS_ITS | Encounter Summary ---
Author Name [facility] [place] [facility] [place] Address [address] [place] [address] Care Team Providers Care Research Anthropologist Name Role Phone JUAN OBRIEN Primary Care Provider Unavaileddie [facility] Insurance Providers: All historical and [...] JESSE FAMIL Y Mar 07, 2000 [id number] [phone] JAY KRISHNA PATIENT ANTHEM BCBS FEDERAL PREFERRED PROVIDER ORGANIZAT ION (PPO) STAND JESSE FAMIL Y Mar 07, 2000 105 [id number] JAY KRISHNA PATIENT ANTHEM BCBS FEDERAL PREFERRED PROVIDER ORGANIZAT ION (PPO) STAND JESSE SELF Mar 07, 2000 105 [id number] JAY KRISHNA PATIENT BCBS [place] F[place] PREFERRED PROVIDER ORGANIZAT ION (PPO) PSHB STAND JESSE FAMIL Y Feb 24, 2024 [id number] JAY KRISHNA PATIENT [place] PREFERRED PROVIDER ORGANIZAT ION (PPO) PSHB STAND JESSE FAMIL Y Feb 24, 2024 33E [id number] [phone] JAY KRISHNA PATIENT [place] DENTAL DENTAL INSURANCE STAND JESSE Mar 07, 2000 DENTAL [id number] JAY KRISHNA PATIENT [place] OF [place] FEDERAL PREFERRED PROVIDER ORGANIZAT ION (PPO) PSHB STAND JESSE FAMIL Y Feb 24, 2024 33E [id number] JAY KRISHNA PATIENT [place] FEP BCBS PRESCRIPT ION CAREM ARK FEPRX PLAN Mar 07, 2000 [id number] JAY KRISHNA PATIENT [place] FEPRX PLAN PRESCRIPT ION CAREM ARK FEPRX Feb 23, 2010 [id number] JAY KRISHNA PATIENT [place] FEPRX PLAN PRESCRIPT ION CAREM ARK FEPRX Mar 07, 2000 [id number] [phone] JAY KRISHNA PATIENT [place]-F EP BCBS PRESCRIPT ION BCBS FEP Feb 23, 2010 [id number] JAY KRISHNA PATIENT MEDICARE (BANNER) MEDICARE () PART A May 25, 2011 PART A [id number] [facility] [phone] JAY KRISHNA PATIENT MEDICARE ([place]) MEDICARE () PART A May 25, 2011 PART A [id number] [id number] [phone] JAY KRISHNA PATIENT MEDICARE ([place]ANNER) MEDICARE () PART A May 25, 2011 PART A [id number] JAY KRISHNA PATIENT MEDICARE ([place]NER) MEDICARE () PART A May 25, 2011 PART A [id number] JAY KRISHNA PATIENT MEDICARE ([place]) MEDICARE () PART A May 25, 2011 PART A [id number] JAY KRISHNA PATIENT MEDICARE ([place]) MEDICARE () PART A May 25, 2011 PART A [id number] JAY KRISHNA PATIENT MEDICARE (WNR) MEDICARE (M) PART A May 25, 2011 PART A [id number] [facility] JAY KRISHNA PATIENT MEDICARE (WNR) MEDICARE (M) PART A May 25, 2011 PART A [id number] JAY KRISHNA PATIENT Selected Encounter This section includes the information on record at CT for the Encounter. Date/Time Encounter Type Encounter Description Reason Provider Source Apr 27, 2024 10:00 AM OFFICE O/P EST HI 40 MIN DERMATOLOGY ICD-10-CM L57.0 Actinic keratosis ENEDELIA ZUNIGA Skyla Encounter Template Text not used by CT Assessments - Encounter Diagnoses This section includes the primary and secondary diagnoses documented for the Encounter. Date/Time Primary/Secondary Diagnosis Diagnosis Name Provider Source May 24, 2024 08:51 AM PRIMARY Actinic keratosis DALILA ZUNIGA [facility] [place] [facility] May 24, 2024 08:51 AM SECONDARY Dermatitis, unspecified DALILA ZUNIGA [facility] [place] [facility] May 24, 2024 08:51 AM SECONDARY Epidermal cyst DALILA ZUNIGA [facility] [place] [facility] May 24, 2024 08:51 AM SECONDARY Neoplasm of uncertain behavior of skin DALILA ZUNIGA [facility] [place] [facility] May 24, 2024 08:51 AM SECONDARY Nevus, non-neoplastic DALILA ZUNIGA [facility] [place] [facility] May 24, 2024 08:51 AM SECONDARY Other hypertrophic disorders of the skin DALILA ZUNIGA [facility] [place] [facility] May 24, 2024 08:51 AM SECONDARY Other melanin hyperpigmentation DALILA ZUNIGA [facility] [place] [facility] May 24, 2024 08:51 AM SECONDARY Other rosacea DALILA ZUNIGA [facility] [place] [facility] May 24, 2024 08:51 AM SECONDARY Xerosis cutis DALILA ZUNIGA [facility] [place] [facility] Plan of Treatment: Future Appointments (+ 6 months) and Future Tests (+/- 45 days) The Plan of Treatment section includes future care activities for the patient [facility]. This section includes future appointments and future orders which are active, pending or scheduled. Future Appointments This section includes appointments that were scheduled to occur 6 months from the date of the Encounter, up to a maximum of 20 appointments. The data comes from all CT treatment facilities. Appointment Date/Time Appointment Type Appointme nt Facility Name Apr 28, 2024 09:30 AM AMBULATORY - MEDICINE [facility] [place] [facility] May 03, 2024 08:00 AM AMBULATORY - MEDICINE [facility] [place] [facility] May 11, 2024 11:00 AM AMBULATORY - MEDICINE [facility] [place] [facility] May 24, 2024 11:00 AM AMBULATORY - PSYCHIATRY [facility] [place] [facility] Jun 07, 2024 12:10 PM AMBULATORY - MEDICINE [facility] [place] [facility] Jun 13, 2024 02:00 PM AMBULATORY - MEDICINE [facility] [place] [facility] June 23, 2024 10:30 AM AMBULATORY - MEDICINE [facility] [place] [facility] June 23, 2024 11:30 AM AMBULATORY - MEDICINE [facility] [place] [facility] June 27, 2024 08:00 AM AMBULATORY - MEDICINE [facility] [place] [facility] July 19, 2024 09:00 AM AMBULATORY - MEDICINE [facility] [place] [facility] Aug 08, 2024 09:30 AM AMBULATORY - MEDICINE [facility] [place] [facility] Aug 09, 2024 11:00 AM AMBULATORY - MEDICINE [facility] [place] [facility] Sep 01, 2024 11:00 AM AMBULATORY - MEDICINE [facility] [place] [facility] Oct 10, 2024 11:00 AM AMBULATORY - MEDICINE [facility] [place] [facility] Oct 26, 2024 10:00 AM AMBULATORY - MEDICINE [facility] [place] [facility] Active, Pending, and Scheduled Orders This section includes a listing of several types of active, pending, and scheduled orders, including clinic medications orders, diagnostic test orders, procedure orders and consult orders; where the start date of the order is 45 days before the date of the Encounter or 45 days after the date of theEncounter. The data comes from all CT treatment facilities. Test Date/Time Test Type Test Details Facility Name Apr 27, 2024 12:00 AM Laboratory - Chemi stry Order SURGICAL PATH ORDER SURG PATH SPEC. UNKNOWN SP [facility] Apr 27, 2024 03:38 PM Consult Order SURGERY/CW M OUTPT Cons Coverage Specialist's Choice [facility] Lab Results: +/- 30 days of the encounter This section includes the Chemistry and Hematology Lab Results on record with CT for the patient. Radiology Reports and Pathology Reports are provided separately, in subsequent sections. Lab Results This section contains the Chemistry/Hematology Results that were resulted 30 days before or 30 daysafter the date of the Encounter. Date/Time Source Result Type Result - Unit Interpretation Reference Range Specimen Type Comment May 11, 2024 12:06 PM [facility] BASIC METABOLIC PANEL (non-fasting) SERUM Spe cimen Type: SERUM No comment entered. Ordering Provider: ALEJANDRA SNYDER Report Released Date/Time: Mar 16, 2024 10:45 AM Reporting Lab: [facility] [address] [facility] [address] Performing Lab: [address] [address] UREA NITROGEN 12 mg/dL 7-25 GLUCOSE 96 mg/dL 65-100 SODIUM 138 mmol/L 135-145 POTASSIUM 4.0 mmol/L 3.5-5.0 CHLORIDE 106 mmol/L 100-110 CO2 22 meq/L 20-30 CALCIUM 9.4 mg/dL 8.5-10.2 CREATININE, Serum 0.69 mg/dL 0.50-1.40 eGFR(CKD-EPI 2020) >90 mL/min >60 May 11, 2024 12:06 PM [facility] LEVETIRACETAM (Keppra) SERUM Specimen Type: S KENYATTA Comment: Brivaracetam (Briviact(R), Rikelta(R)) exhibits significant cross-reactivity in the Levetiracetam (Keppra(R), Spritam(R)) immunoassay. If Brivaracetam has been prescribed, order test code 19667 Levetiracetam by LCMSMS. Test Performed by [facility], [facility], [address] [place] [address] Caleb Mullins M.D., Ph.D., Director of Laboratories , CLIA [id number] TEST PERFORMED AT: , Ordering Provider: JUAN OBRIEN Report Released Date/Time: May 11, 2024 11:48 AM Reporting Lab: [facility] [address] [facility] [address] Performing Lab: [facility] [address] [address] LEVETIRACETAM (Keppra) 8.3 ug/mL 6.0-46. 0 May 11, 2024 12:06 PM [facility] FOLATE (WROX) SERUM Specimen Type: SERUM No comment entered. Ordering Provider: JUAN OBRIEN Report Released Date/Time: May 11, 2024 11:48 AM Reporting Lab: [facility] [address] [facility] [address] Performing Lab: [facility] [address] [facility] [address] FOLATE (WROX) 11.1 ng/mL >5.2 May 11, 2024 12:06 PM [facility] LIPID PANEL, NON FASTING SERUM Specimen Type: SERUM No comment entered. Ordering Provider: JUAN OBRIEN Report Released Date/Time: May 11, 2024 11:48 AM Reporting Lab: [facility] [address] [facility] [address] Performing Lab: [facility] [address] [facility] [address] CHOLESTEROL 110 mg/dL TRIGLYCERIDE 84 mg/dL 0-150 LDL calculated 63 mg/dL 0-129 CHOL/HDL 3.7 HDL CHOLESTEROL 30 mg/dL L 40-60 May 11, 2024 12:06 PM [facility] LIVER FUNCTION SERUM Specimen Type: SERUM No comment entered. Ordering Provider: JUAN OBRIEN Report Released Date/Time: May 11, 2024 11:48 AM Reporting Lab: [address] [address] Performing Lab: [address] [address] PROTEIN,TOTAL 7.4 g/dL 6.0-8.3 ALBUMIN 3.9 g/dL 3.5-5.0 ALKALINE PHOSPHATASE 58 U/L 40-150 AST 25 U/L 5-34 ALT 22 U/L BILIRUBIN, TOTAL 1.3 mg/dL H 0.2-1.2 BILIRUBIN, DIRECT 0.5 mg/dL 0-0.5 May 11, 2024 12:06 PM [facility] VITAMIN B12 SERUM Specimen Type: SERUM No comment entered. Ordering Provider: JUAN OBRIEN Report Released Date/Time: May 11, 2024 11:48 AM Reporting Lab: [address] [address] Performing Lab: [address] [address] VITAMIN B12 714 pg/mL 200-900 May 11, 2024 12:06 PM [facility] BASIC METABOLIC PANEL (non-fasting) SERUM Spe cimen Type: SERUM No comment entered. Ordering Provider: JUAN OBRIEN Report Released Date/Time: May 11, 2024 11:48 AM Reporting Lab: [address] [address] Performing Lab: [address] [address] UREA NITROGEN 13 mg/dL 7-25 GLUCOSE 96 mg/dL 65-100 SODIUM 138 mmol/L 135-145 POTASSIUM 4.0 mmol/L 3.5-5.0 CHLORIDE 106 mmol/L 100-110 CO2 23 meq/L 20-30 CALCIUM 9.4 mg/dL 8.5-10.2 CREATININE, Serum 0.69 mg/dL 0.50-1.40 eGFR(CKD-EPI 2020) >90 mL/min >60 May 11, 2024 12:06 PM [facility] CBC BLOOD Specimen Type: BLOOD No comment entered. Ordering Provider: JUAN OBRIEN Report Released Date/Time: May 11, 2024 11:48 AM Reporting Lab: [address] [address] Performing Lab: [address] [address] WBC 8.04 10*3/uL 4.50-11.00 RBC 4.60 10*6/uL 4.23-5.66 HGB 13.9 g/dL 12.8-17 HCT 40.8 39.2-50.4 MCV 88.7 fL 82-99 MCHC 34.1 g/dL 30.8-35.1 PLT 295 10*3/uL 140-360 RDW-CV 17.1 H 12.0-16.0 MCH 30.2 pg 26.2-32.6 May 11, 2024 12:06 PM [facility] VITAMIN D (25-OH) SERUM Specimen Type: SERUM No comment entered. Ordering Provider: JUAN OBRIEN Report Released Date/Time: May 11, 2024 11:48 AM Reporting Lab: [address] [address] Performing Lab: [address] [address] VITAMIN D (25-OH) 25 ng/mL 20-50 May 11, 2024 12:06 PM [facility] HEMOGLOBIN A1C PANEL BLOOD Specimen Type: BLO OD Comment: Values obtained from A1C measurements can vary. For atypical A1C assays, a reported value of 7.0 could actually be between 6.72 and 7.28 if measured by a reference method. A reported value of 9.0 could actually be between 8.73 and 9.27. Ref: http://www.ngsp.org/CAPdata.asp Ordering Provider: JUAN OBRIEN Report Released Date/Time: May 11, 2024 11:48 AM Reporting Lab: [facility] [place] [facility] [address] [facility] [address] Performing Lab: [facility] [place] [facility] [address] [facility] [address] HEMOGLOBIN A1C 5.2 4.0-5.6 May 11, 2024 12:06 PM [facility] MAGNESIUM SERUM Specimen Type: SERUM No comment entered. Ordering Provider: JUAN OBRIEN Report Released Date/Time: May 11, 2024 11:48 AM Reporting Lab: [facility] [place] [facility] [address] [facility] [address] Performing Lab: [facility] [address] [address] MAGNESIUM 2.1 mg/dL 1.6-2.6 May 11, 2024 12:06 PM [facility] TSH SERUM Specimen Type: SERUM No comment entered. Ordering Provider: JUAN OBRIEN Report Released Date/Time: May 11, 2024 11:48 AM Reporting Lab: [facility] [place] [facility] [address] [facility] [address] Performing Lab: [facility] [address] [address] TSH 1.52 u[IU]/mL 0.35-5.00 Vital Signs: All taken on the encounter date This section contains inpatient and outpatient Vital Signs collected on the date of the Encounter. Date/Time Temperature Pulse Blood Pressure Respiratory Rate SP02 Pain Height Weight Body Mass Index Source Apr 27, 2024 09:50 AM 90 143/89 [place] [facility] [place] [facility] Apr 27, 2024 09:46 AM 88 143/82 [facility] [place] [facility] [facility] Social History: Smoking Status (Most current) and Tobacco Use (All prior to encounter date) This section includes the most current, and the historical, smoking and tobacco- related health factors from the CT facility where the Encounter took place. Current Smoking Status This section includes the most current smoking, or tobacco-related health factor, from the CT facility where the Encounter took place. Date/Time Current Smoking Status Comment Facil ity July 24, 2023 10:00 AM VA-TOBACCO QUIT [address] CNT [facility] [place] [facility] Tobacco Use History This section includes a history of the smoking, or tobacco-related health factors, that were collected on or before the date of the Encounter. The data comes from the CT facility where the Encounter took place. Date/Time Smoking Status/Tobac co Use Comment Facility July 24, 2023 10:00 AM VA-TOBACCO QUIT [address] [facility] [place] [facility] July 14, 2022 03:30 PM VA-TOBACCO FORMER USER CT [facility] [place] [facility] July 14, 2022 03:30 PM VA-TOBACCO QUIT [address] [facility] [place] [facility] Aug 05, 2021 01:00 PM VA-TOBACCO FORMER USER CT [facility] [place] [facility] Aug 05, 2021 01:00 PM VA-TOBACCO QUIT 5 TO < [address] [facility] [place] [facility] Sep 09, 2019 01:25 PM VA-TOBACCO FORMER USER CT [facility] [place] [facility] Sep 09, 2019 01:25 PM VA-TOBACCO QUIT 5 TO < [address] [facility] [place] [facility] Dec 04, 2017 10:18 AM VA-TOBACCO FORMER USER CT [facility] [place] [facility] Dec 04, 2017 10:18 AM VA-TOBACCO QUIT 5 TO < [address] [facility] [place] [facility] May 29, 2017 09:09 AM QUIT TOBACCO USE > [address] [facility] [place] [facility] Apr 23, 2015 08:21 AM QUIT TOBACCO USE > [address] [facility] [place] [facility] Apr 23, 2015 08:21 AM QUIT TOBACCO USE 1-[address] [facility] [place] [facility] Mar 06, 2011 11:06 AM QUIT TOBACCO USE 1-[address] [facility] [place] [facility] Apr 08, 2010 10:56 AM CURRENT SMOKER cigar once in a while CT [facility] [place] [facility] Apr 08, 2010 10:56 AM V1-PT DECLINES REF TO TOBACCO CESS PRGM CT [facility] [place] [facility] Apr 08, 2010 10:56 AM V1-PT DECLINES TOBACCO CESSATION MEDS [facility] Apr 08, 2010 10:56 AM V1-PT READY TO QUIT TOBACCO USE [facility] Feb 21, 2009 09:16 AM CURRENT SMOKER cigar once in a while [facility] Feb 21, 2009 09:16 AM V1-PT DECLINES REF TO TOBACCO CESS PRGM [facility] Feb 21, 2009 09:16 AM V1-PT DECLINES TOBACCO CESSATION MEDS [facility] Feb 21, 2009 09:16 AM V1-PT THINKING ABOUT QUIT TOBACCO USE [facility] Dec 16, 2007 09:15 AM QUIT TOBACCO USE 1-7 YEARS AGO [facility] Apr 01, 2007 11:08 AM QUIT TOBACCO USE 1-7 YEARS AGO [facility] Sep 28, 2006 08:52 AM QUIT TOBACCO USE IN PAST YEAR [facility] Apr 21, 2006 10:31 AM QUIT TOBACCO USE IN PAST YEAR August 2005 [facility] Dec 16, 2005 10:02 AM CURRENT SMOKER OCCASIONAL CIGAR [facility] May 19, 2001 03:50 PM CURRENT SMOKER see below [facility] Pathology Reports: +/- 30 days of [...] the Encounter. The data comes from all [facility] facilities. Date/Time Pathology Report Provider Source May 02, 2024 10:07 AM LR SURGICAL PATHOLOGY REPORT: LOCAL TITLE: LR SURGICAL PATHOLOGY REPORT STANDARD TITLE: PATHOLOGY REPORT DATE OF NOTE: MAY 02, 2024@10:07:13 ENTRY DATE: MAY 02, 2024@10:07:13 AUTHOR: RADHA MARTINEZ MD EXP COSIGNER: URGENCY: STATUS: COMPLETED $APHDR Reporting Lab: [facility] [CLIA# [id number]] [address] [place] [address] - - - - - - - [...] (Received Apr 28, 2024): A:LEFT UPPER BACK SKIN([id number]) B:RIGHT UPPER BACK SKIN([id number]) - - - - - - - [...] GROSS DESCRIPTION: The specimen is recieved from [facility], [facility] RUST 1510;A;1;KRISHNA,B A. Received in formalin labeled with [...] Performing Laboratory: Surgical Pathology Report Performed By: [facility] [CLIA# [id number]] [address] [place] [phone] $FTR - - - - - - [...] - - JAY KRISHNA STANDARD FORM 515 ID:[id number] SEX:M :1960 AGE: 64 LOC:*[facility] PCP: /daniela/ Radha Martinez MD, FRCPath Board Certified Dermatopathologist Signed: 05/02/2024 10:07 RADHA MARTINEZ MD [facility] May 02, 2024 10:04 AM LR SURGICAL PATHOLOGY REPORT: LOCAL TITLE: LR SURGICAL PATHOLOGY REPORT STANDARD TITLE: PATHOLOGY DIAGNOSTIC STUDY REPORT DATE OF NOTE: MAY 02, 2024@10:04:16 ENTRY DATE: MAY 02, 2024@10:04:16 AUTHOR: RADHA MARTINEZ MD EXP COSIGNER: URGENCY: STATUS: COMPLETED $APHDR Reporting Lab: [facility] WSTRElba [facility] [CLIA# [id number]] [address] [place] [phone] - - - - - - - [...] - - - PATHOLOGY REPORT Accession No. [facility] - - - - - - - - - - - - - - - - - - - - - - - - - - - - - - - - - - - - - - - - Gross description: The specimen is recieved from [facility], [facility] RSP 25 1510;A;1;Luis KRISHNA. Received in formalin labeled with [...] cross section in cassette B2. GIA Pacheco ([facility]) 04/28/2024 A. Skin, left upper [...] for further evaluation and treatment. CPT codes 80715w3 /es/ RADHA MARTINEZ MD Board Certified Dermatopathologist Signed May 02, 2024@10:04 Performing Laboratory: Surgical Pathology Report Performed By: [facility] [CLIA# [id number]] [address] [place] [phone] $FTR - - - - - - [...] - - JAY KRISHNA STANDARD FORM 515 ID:[id number] SEX:M :1960 AGE: 64 LOC:[facility] DERMATOLOGY CREATIVE SERVICES INTERN 1 PM PCP: Juan Obrien NP /es/ RADHA MARTINEZ MD Board Certified Dermatopathologist Signed: 05/02/2024 10:04 RADHA MARTINEZ MD [facility] WSN [facility] Encounter Notes: All associated encounter notes This section contains the clinical notes associated to the Encounter. Date/Time Encounter Note(s) Provider Source May 02, 2024 10:48 AM ADDENDUM: LOCAL TITLE: Addendum STANDARD TITLE: ADDENDUM DATE OF NOTE: MAY 02, 2024@10:48:40 ENTRY DATE: MAY 02, 2024@10:48:41 AUTHOR: CLARK ZUNIGA EXP COSIGNER: URGENCY: STATUS: 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 No further intervention required. Follow up as scheduled, sooner PRN LAB SURGICAL PATHOLOGY Collected: 04/27/2024 12:23Acc:[facility] Surgeon/Physician: CLARK ZUNIGA Specimen: SPECIMEN A, L UPPER BACK SPECIMEN B, R UPPER BACK Brief Clinical Hx: SPECIMEN A- L UPPER BACK 2MM HYPERPIGMENTED MACILE WITH IRREGULAR NETWORK SPECIMEN B- R UPPER BACK 4MM PAPULE WITH IRREGULAR NETWORK Gross Description: The specimen is recieved from [facility] RUST 1510;A;1;KRISHNA,Luis A. Received in formalin labeled with [...] for further evaluation and treatment. CPT codes 49528v2 /es/ CLARK ZUNIGA DNP, BONDERITE OPERATOR-C NURSE PRACTITIONER Signed: 05/02/2024 10:50 Receipt Acknowledged By: 05/02/2024 13:05 /es/ MILY MEEK LPN CORRECTIONAL SUPERVISING COOK --- Original Document --- 04/27/24 DERMATOLOGY CLINIC NOTE: APR 27, 2024 JAY KRISHNA Jan 64 PATIENT PHONE - Patient here for FOLLOW UP CHIEF COMPLAINT: h/o AKs, Rosacea HPI: Reviewed records from last Dermatology visit: 10/01/23; Irritated skin tag- s/p LN2, Rosacea- continues on topical metronidazole 0.5% gel, Dermatitis, unspec-R axilla advised d/c 'Josiah' body deodorant and treated with miconzaole powder. [place] concerns today: -Lesion on tip of nose, L undereye, cyst on back denies any other new/changing/bleeding/non-heali ng lesions. REVIEW OF SYSTEMS: Constitutional-neg Skin/Hair/Nails-see HPI DermHx: -AKs s/p LN2 -Rosacea - metro gel Family Hx: Denies known h/o MM PastMedHx: Reviewed. 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 Rides [employer]. Purchased home in [facility]. Active Outpatient Medications (including Supplies): Active Outpatient [...] Keratosis: -Location: lateral aspects of frontal scalp -[place] educated on relationship to squamous cell carcinoma. [...] on biopsy results. #Skin Tag, Irritated -The [place]cl[place] was educated regarding the benign nature, but [...] recommended yearly -Photoprotection discussed. #Seborrheic Keratoses: -The [place]cl[place] was educated regarding the benign nature, but [...] upper back -Size: Approx 2 cm -The [place] was educated regarding the benign nature, but given chronicity, increase in size and pain, intervention requested -[facility] SURGERY consult placed for excision #Xerosis -Advised liberal emollients. Rx mailed per request RTC 6m, sooner PRN * [place] educated to RTC basim if any new, [...] of active outpatient prescriptions dispensed from this CT (local) and dispensed from another CT or [facility] facility (remote) as well as inpatient [...] list may not be complete. Please check imageloop. Allergies/ADRs (Tool #5) FACILITY ALLERGY/ADR -------- [facility] AMITRIPTYLINE [facility] ERYTHRITOL [facility] GABAP[facility]IN [facility] [place] [facility] ERYTHROMYCIN [facility] AMITRIPTYLINE [facility] GABAPENTIN Med Recon NoGlossary (Tool #1) INCLUDED IN THIS LIST: Alphabetical list of active outpatient prescriptions dispensed from this CT (local) and dispensed from another [place] or [facility] facility (remote) as well as inpatient orders (local pending and active), local clinic medications, locally documented non-VA medications, and local prescriptions that have or been discontinued in the past 90 days. Non-VA Meds Last Documented On: Mar 16, 2024 NOTE The display of VA prescriptions dispensed from another [place] or [facility] facility (remote) is limited to active outpatient prescription entries matched to National Drug File at the originating site and may not include some items such as investigational drugs, compounds, etc. NOT INCLUDED IN THIS LIST: Medications self-entered by the patient into personal health records (i.e. Rewardable) are NOT included in this list. Non-VA medications documented outside this [place], remote inpatient orders (regardless of status) and [...] TIMES A DAY FOR DRY EYE Rx# [id number] Last Released: 04/25/23 Qty/Days Supply: Rx Expiration Date: 04/22/24 Refills Remainin Indication: FOR DRY EYE OUTPT CHLORTHALIDONE 25MG TAB (Status = Active/Suspended) TAKE ONE TABLET BY MOUTH ONCE DAILY TO REMOVE FLUID/CONTROL BLOOD PRESSURE Rx# [id number] Last Released: 03/18/24 Qty/Days Supply: 90 Rx Expiration Date: 03/17/25 Refills Remainin Indication: FOR HIGH BLOOD PRESSURE OUTPT CLOBETASOL PROPIONATE 0.05% CREAM (Status = Active) APPLY A THIN LAYER TOPICALLY TWICE DAILY FOR ITCHING/RASH APPLY TO AFFECTED AREAS FOR 2 WEEKS, THEN NEEDED Rx# [id number] Last Released: 10/06/23 Qty/Days Supply: 60 Rx Expiration Date: 10/01/24 Refills Remainin Indication: FOR SKIN INFLAMMATION Non-VA CLOPIDOGREL BISULFATE 75MG TAB TAKE ONE TABLET BY MOUTH ONCE DAILY Medication prescribed by Non-VA provider. Indication: TO PREVENT BLOOD CLOTS OUTPT CLOTRIMAZOLE 1% TOP SOLN (Status = Active) APPLY 1 DROP TOPICALLY ONCE DAILY FOR FUNGAL INFECTION APPLY TO NAILS WHEN DRY Rx# [id number] Last Released: 09/28/23 Qty/Days Supply: Rx Expiration [...] DAY TO PREVENT FLUID/CONTROL BLOOD PRESSURE Rx# [id number] Last Released: 11/02/23 Qty/Days Supply: Rx Expiration Date: 08/11/24 Refills Remainin Non-VA METOPROLOL SUCCINATE 200MG SA TAB TAKE ONE TABLET BY MOUTH ONCE DAILY Medication prescribed by Non-VA provider. Indication: afibb OUTPT METOPROLOL SUCCINATE 50MG SA TAB (Status = Discontinued) TAKE THREE TABLETS BY MOUTH ONCE DAILY FOR BLOOD PRESSURE/HEART Rx# [id number] Last Released: 08/13/23 Qty/Days Supply: Rx Expiration Date: 08/11/24 Refills Remainin Indication: FOR HIGH BLOOD PRESSURE OUTPT METRONIDAZOLE 0.75% TOP GEL (Status = ) APPLY SMALL AMOUNT TOPICALLY TWICE DAILY FOR ACNE ROSACEA Rx# [id number] Last Released: 10/06/23 Qty/Days Supply: 90 Rx Expiration Date: 04/02/24 Refills Remainin Indication: FOR ACNE ROSACEA OUTPT OMEPRAZOLE 20MG EC CAP (Status = Discontinued) TAKE ONE CAPSULE BY MOUTH TWICE DAILY BEFORE A MEAL FOR GASTROESOPHAGEAL REFLUX DISEASE Rx# [id number] Last Released: 10/17/23 Qty/Days Supply: Rx Expiration Date: 08/11/24 Refills Remainin Indication: FOR GASTROESOPHAGEAL REFLUX DISEASE Non-VA OXYCODONE HCL 5MG TAB NOT SA TAKE ONE TABLET BY MOUTH EVERY 8 HOURS NEEDED Medication prescribed by Non-VA provider. via community pcp OUTPT PANTOPRAZOLE NA 40MG EC TAB (Status = Active) TAKE ONE TABLET BY MOUTH TWICE DAILY BEFORE A MEAL FOR EXCESSIVE PRODUCTION OF STOMACH ACID Rx# [id number] Last Released: 02/19/24 Qty/Days Supply: Rx Expiration Date: 02/11/25 Refills Remainin Indication: FOR EXCESSIVE PRODUCTION OF STOMACH ACID OUTPT RIVAROXABAN 20MG TAB (Status = Discontinued) TAKE ONE TABLET BY MOUTH EVERY EVENING WITH FOOD Rx# [id number] Last Released: 10/27/23 Qty/ Supply: Rx Expiration Date: 08/11/24 Refills Remainin Non-VA SEMAGLUTIDE 2MG/0.75ML INJ PEN 3ML INJECT 2MG SUBCUTANEOUSLY ONCE A WEEK Medication prescribed by Non-VA provider. Indication: FOR TYPE 2 DIABETES MELLITUS OUTPT SILDENAFIL CITRATE 100MG TAB (Status = Active) TAKE ONE TABLET BY MOUTH ONCE DAILY TAKE 1 HOUR PRIOR TO SEXUAL ACTIVITY Rx# [id number] Last Released: 04/25/24 Qty/Days Supply: Rx Expiration Date: 08/11/24 Refills Remainin Indication: FOR ERECTILE DYSFUNCTION OUTPT SIMVASTATIN 80MG TAB (Status = Discontinued) TAKE ONE-HALF TABLET BY MOUTH EVERY EVENING FOR CHOLESTEROL Rx# [id number] Last Released: 01/14/24 Qty/Days Supply: Rx Expiration Date: 04/02/24 Refills Remainin OUTPT SIMVASTATIN 80MG TAB (Status = Active) TAKE ONE-HALF TABLET BY MOUTH EVERY EVENING FOR CHOLESTEROL Rx# [id number] Last Released: Qt Supply: Rx Expiration Date: 04/23/25 Refills Remainin OUTPT VALSARTAN 160MG TAB (Status = Active) TAKE ONE TABLET BY MOUTH ONCE DAILY FOR HIGH BLOOD PRESSURE Rx# [id number] Last Released: 03/21/24 Qty/Days Supply: Rx Expiration Date: 02/11/25 Refills Remainin Indication: FOR HIGH BLOOD PRESSURE SUPPLIES /daniela/ CLARK ZUNIGA DNP, BONDERITE OPERATOR-C NURSE PRACTITIONER Signed: 04/27/2024 15:42 CLARK ZUNIGA [facility] Apr 27, 2024 [...] Sun Exposure/Sunburns: +coates, denies blistering Social Hx: Lady x>30 yrs. 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 Rides [employer]cycle. Purchased home in [facility]. Active Outpatient Medications (including Supplies): Active Outpatient [...] Keratosis: -Location: lateral aspects of frontal scalp - educated on relationship to squamous cell carcinoma. [...] upper back -Size: Approx 2 cm -The [place] was educated regarding the benign nature, but given chronicity, increase in size and pain, intervention requested -[facility] consult placed for excision #Xerosis -Advised liberal emollients. Rx mailed per request RTC 6m, sooner PRN * [place] educated to RTC basim if any new, changing, symptomatic lesions. * Education on sun protection and avoidance strategies was provided. * Differential diagnosis, prescription options and risks/benefits were discussed with the patient, who consented to treatment plan. * [place] consented to photography for documentation if indicated. [...] of active outpatient prescriptions dispensed from this CT (local) and dispensed from another [place] or [facility] facility (remote) as well as inpatient [...] list may not be complete. Please check JLLocaMap. Allergies/ADRs (Tool #5) FACILITY ALLERGY/ADR -------- [facility] D AMITRIPTYLINE [facility] D ER[facility]THRITOL [facility] GABAPENTIN [facility] ERYTHROMYCIN [facility] AMITRIPTYLINE [facility] GABAPENTIN Med Recon NoGlossary (Tool #1) INCLUDED IN THIS LIST: Alphabetical list of active outpatient prescriptions dispensed from this CT (local) and dispensed from another [place] or [facility] facility (remote) as well as inpatient orders (local pending and active), local clinic medications, locally documented non-VA medications, and local prescriptions that have or been discontinued in the past 90 days. Non-VA Meds Last Documented On: Mar 16, 2024 NOTE The display of VA prescriptions dispensed from another CT or [facility] facility (remote) is limited to active outpatient prescription entries matched to National Drug File at the originating site and may not include some items such as investigational drugs, compounds, etc. NOT INCLUDED IN THIS LIST: Medications self-entered by the patient into personal health records (i.e. Rewardable) are NOT included in this list. Non-VA medications documented outside this [place], remote inpatient orders (regardless of status) and [...] TIMES A DAY FOR DRY EYE Rx# [id number] Last Released: 04/25/23 Qty/Days Supply: 45 Rx Expiration Date: 04/22/24 Refills Remainin Indication: FOR DRY EYE OUTPT CHLORTHALIDONE 25MG TAB (Status = Active/Suspended) TAKE ONE TABLET BY MOUTH ONCE DAILY TO REMOVE FLUID/CONTROL BLOOD PRESSURE Rx# [id number] Last Released: 03/18/24 Qty/Days Supply: 90/90 Rx Expiration Date: 03/17/25 Refills Remainin Indication: FOR HIGH BLOOD PRESSURE OUTPT CLOBETASOL PROPIONATE 0.05% CREAM (Status = Active) APPLY A THIN LAYER TOPICALLY TWICE DAILY FOR ITCHING/RASH APPLY TO AFFECTED AREAS FOR 2 WEEKS, THEN NEEDED Rx# [id number] Last Released: 10/06/23 Qty/Days Supply: 60/30 Rx Expiration Date: 10/01/24 Refills Remainin Indication: FOR SKIN INFLAMMATION Non-VA CLOPIDOGREL BISULFATE 75MG TAB TAKE ONE TABLET BY MOUTH ONCE DAILY Medication prescribed by Non-VA provider. Indication: TO PREVENT BLOOD CLOTS OUTPT CLOTRIMAZOLE 1% TOP SOLN (Status = Active) APPLY 1 DROP TOPICALLY ONCE DAILY FOR FUNGAL INFECTION APPLY TO NAILS WHEN DRY Rx# [id number] Last Released: 09/28/23 Qty/Days Supply: 30 Rx Expiration Date: 09/23/24 Refills Remainin Indication: [...] DAY TO PREVENT FLUID/CONTROL BLOOD PRESSURE Rx# [id number] Last Released: 11/02/23 Qty/Days Supply: Rx Expiration Date: 08/11/24 Refills Remainin Non-VA METOPROLOL SUCCINATE 200MG SA TAB TAKE ONE TABLET BY MOUTH ONCE DAILY Medication prescribed by Non-VA provider. Indication: afibb OUTPT METOPROLOL SUCCINATE 50MG SA TAB (Status = Discontinued) TAKE THREE TABLETS BY MOUTH ONCE DAILY FOR BLOOD PRESSURE/HEART Rx# [id number] Last Released: 08/13/23 Qty/Days Supply: 270/ Rx Expiration Date: 08/11/24 Refills Remainin Indication: FOR HIGH BLOOD PRESSURE OUTPT METRONIDAZOLE 0.75% TOP GEL (Status = ) APPLY SMALL AMOUNT TOPICALLY TWICE DAILY FOR ACNE ROSACEA Rx# [id number] Last Released: 10/06/23 Qty/Days Supply: 90 Rx Expiration Date: 04/02/24 Refills Remainin Indication: FOR ACNE ROSACEA OUTPT OMEPRAZOLE 20MG EC CAP (Status = Discontinued) TAKE ONE CAPSULE BY MOUTH TWICE DAILY BEFORE A MEAL FOR GASTROESOPHAGEAL REFLUX DISEASE Rx# [id number] Last Released: 10/17/23 Qty/Days Supply: 180/ Rx [...] FOR EXCESSIVE PRODUCTION OF STOMACH ACID Rx# [id number] Last Released: 02/19/24 Qty Supply: Rx Expiration Date: 02/11/25 Refills Remainin Indication: FOR EXCESSIVE PRODUCTION OF STOMACH ACID OUTPT RIVAROXABAN 20MG TAB (Status = Discontinued) TAKE ONE TABLET BY MOUTH EVERY EVENING WITH FOOD Rx# [id number] Last Released: 10/27/23 Qty Supply: Rx Expiration Date: 08/11/24 Refills Remainin Non-VA SEMAGLUTIDE 2MG/0.75ML INJ PEN 3ML INJECT 2MG SUBCUTANEOUSLY ONCE A WEEK Medication prescribed by Non-VA provider. Indication: FOR TYPE 2 DIABETES MELLITUS OUTPT SILDENAFIL CITRATE 100MG TAB (Status = Active) TAKE ONE TABLET BY MOUTH ONCE DAILY TAKE 1 HOUR PRIOR TO SEXUAL ACTIVITY Rx# [id number] Last Released: 04/25/24 QtyDays Supply: Rx Expiration Date: 08/11/24 Refills Remainin Indication: FOR ERECTILE DYSFUNCTION OUTPT SIMVASTATIN 80MG TAB (Status = Discontinued) TAKE ONE-HALF TABLET BY MOUTH EVERY EVENING FOR CHOLESTEROL Rx# [id number] Last Released: 01/14/24 Qty/Days Supply: Rx Expiration Date: 04/02/24 Refills Remainin OUTPT SIMVASTATIN 80MG TAB (Status = Active) TAKE ONE-HALF TABLET BY MOUTH EVERY EVENING FOR CHOLESTEROL Rx# [id number] Last Released: Supply: Rx Expiration Date: 04/23/25 Refills Remainin OUTPT VALSARTAN 160MG TAB (Status = Active) TAKE ONE TABLET BY MOUTH ONCE DAILY FOR HIGH BLOOD PRESSURE Rx# [id number] Last Released: 03/21/24 Qty/Days Supply: Rx Expiration Date: 02/11/25 Refills Remainin Indication: FOR HIGH BLOOD PRESSURE SUPPLIES /daniela/ CLARK ZUNIGA DNP, BONDERITE OPERATOR-C NURSE PRACTITIONER Signed: 04/27/2024 15:42 05/02/2024 ADDENDUM STATUS: 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 No further intervention required. Follow up as scheduled, sooner PRN LAB SURGICAL PATHOLOGY Collected: 04/27/2024 12:23Acc:GOPI Surgeon/Physician: CLARK ZUNIGA Specimen: SPECIMEN A, L UPPER BACK SPECIMEN B, R UPPER BACK Brief Clinical Hx: SPECIMEN A- L UPPER BACK 2MM HYPERPIGMENTED MACILE WITH IRREGULAR NETWORK SPECIMEN B- R UPPER BACK 4MM PAPULE WITH IRREGULAR NETWORK Gross Description: The specimen is recieved from [facility] GOPI zapata RUST [id number];A;1;Luis KRISHNA A. Received in formalin labeled [...] cross section in cassette B2. GIA Pacheco (ASC) 04/28/2024 Microscopic Exam: A. Skin, left upper [...] for further evaluation and treatment. CPT codes 15344l3 /daniela/ CLARK ZUNIGA DNP, BONDERITE OPERATOR-C NURSE PRACTITIONER Signed: 05/02/2024 10:50 Receipt Acknowledged By: 05/02/2024 13:05 /daniela/ MILY MEEK LPN LPN 05/02/2024 ADDENDUM STATUS: COMPLETED notified of biopsy results. /daniela/ MILY MEEK LPN LPN Signed: 05/02/2024 13:[address] [facility]
--- OUTSIDE RECORDS SUMMARY | 2024-06-29 12:29 | XMS_ITS ---
Author Name [facility] [place] [facility] [place] [facility] [place] Address [address] [place] [address] Care Team Providers Care Case Management Director Name Role Phone JUAN OBRIEN Primary Care Provider Unavailed[facility] Insurance Providers: All historical and [...] JESSE FAMIL Y Mar 07, 2000 105 [id number] [phone] JAY KRISHNA PATIENT ANTHEM BCBS FEDERAL PREFERRED PROVIDER ORGANIZAT ION (PPO) STAND JESSE FAMIL Y Mar 07, 2000 105 [id number] JAY KRISHNA PATIENT ANTHEM BCBS FEDERAL PREFERRED PROVIDER ORGANIZAT ION (PPO) STAND JESSE SELF Mar 07, 2000 105 [id number] JAY KRISHNA PATIENT BCBS [place] FEP PREFERRED PROVIDER ORGANIZAT ION (PPO) PSHB STAND JESSE FAMIL Y Feb 24, 2024 33E [id number] JAY KRISHNA PATIENT [place] PREFERRED PROVIDER ORGANIZAT ION (PPO) PSHB STAND JESSE FAMIL Y Feb 24, 2024 33E [id number] JAY KRISHNA PATIENT [place] F[place] DENTAL DENTAL INSURANCE STAND JESSE Mar 07, 2000 DENTAL [id number] [phone] JAY KRISHNA PATIENT BCBS OF [place] FEDERAL PREFERRED PROVIDER ORGANIZAT ION (PPO) PSHB STAND JESSE FAMIL Y Feb 24, 2024 33E [id number] [phone] JAY KRISHNA PATIENT CAREMARK FEP BCBS PRESCRIPT ION CAREM ARK FEPRX PLAN Mar 07, 2000 [id number] JAY KRISHNA PATIENT [place] FEPRX PLAN PRESCRIPT ION CAREM ARK FEPRX Feb 23, 2010 [id number] JAY KRISHNA PATIENT [place] FEPRX PLAN PRESCRIPT ION CAREM ARK FEPRX Mar 07, 2000 [id number] [phone] JAY KRISHNA PATIENT [place]-F EP BCBS PRESCRIPT ION BCBS FEP Feb 23, 2010 [id number] JAY KRISHNA PATIENT MEDICARE ([facility]) MEDICARE () PART A May 25, 2011 PART A [id number] JAY KRISHNA PATIENT MEDICARE ([facility]) MEDICARE () PART A May 25, 2011 PART A [id number] JAY KRISHNA PATIENT MEDICARE ([facility]) MEDICARE () PART A May 25, 2011 PART A [id number] [phone] JAY KRISHNA PATIENT MEDICARE ([facility]) MEDICARE () PART A May 25, 2011 PART A [id number] JAY KRISHNA PATIENT MEDICARE ([facility]) MEDICARE () PART A May 25, 2011 PART A [id number] JAY KRISHNA PATIENT MEDICARE ([facility]) MEDICARE () PART A May 25, 2011 PART A [id number] [phone] JAY KRISHNA PATIENT MEDICARE (WNR) MEDICARE (M) PART A May 25, [id number] [facility] JAY KRISHNA PATIENT MEDICARE (WNR) MEDICARE (M) PART A May 25, [id number] [facility] JAY KRISHNA PATIENT Selected Encounter This section includes the information on record at [place] for the Encounter. Date/Time Encounter Type Encounter Description Reason Provider Source May 24, 2024 11:00 AM PSYTX W PT 45 MINUTES PCMHI INDIV ICD-10-CM F41.9 Anxiety disorder, unspecified RAYSA NAVARRO IHSkyla Encounter Template Text not used by [place] Assessments - Encounter Diagnoses This section includes the primary and secondary diagnoses documented for the Encounter. Date/Time Primary/Secondary Diagnosis Diagnosis Name Provider Source May 25, 2024 02:26 PM PRIMARY Anxiety disorder, unspecified LIA BARROS [place] [facility] [place] [facility] Plan of Treatment: Future Appointments (+ 6 months) and Future Tests (+/- 45 days) The Plan of Treatment section includes future care activities for the patient from all [place] treatmentfacilities. This section includes future appointments and future orders which are active, pending or scheduled. Future Appointments This section includes appointments that were scheduled to occur 6 months from the date of the Encounter, up to a maximum of 20 appointments. The data comes from all [place] treatment facilities. Appointment Date/Time Appointment Type Appointme nt Facility Name Jun 07, 2024 12:10 PM AMBULATORY - MEDICINE [place] [facility] [place] [facility] Jun 13, 2024 02:00 PM AMBULATORY - MEDICINE [place] [facility] [place] [facility] June 23, 2024 10:30 AM AMBULATORY - MEDICINE [place] [facility] [place] [facility] June 23, 2024 11:30 AM AMBULATORY - MEDICINE [place] [facility] [place] [facility] June 27, 2024 08:00 AM AMBULATORY - MEDICINE ND [facility] [place] [facility] July 19, 2024 09:00 AM AMBULATORY - MEDICINE [place] [facility] [place] [facility] Aug 08, 2024 09:30 AM AMBULATORY - MEDICINE [place] [facility] [place] [facility] Aug 09, 2024 11:00 AM AMBULATORY - MEDICINE [facility] Sep 01, 2024 11:00 AM [facility] Oct 10, 2024 11:00 AM [facility] Oct 26, 2024 10:00 AM AMBULATORY - MEDICINE [facility] Active, Pending, and Scheduled Orders This section includes a listing of several types of active, pending, and scheduled orders, including clinic medications orders, diagnostic test orders, procedure orders and consult orders; where the start date of the order is 45 days before the date of the Encounter or 45 days after the date of theEncounter. The data comes from all [place] treatment facilities. Test Date/Time Test Type Test Details Facility Name Apr 27, 2024 12:00 AM Laboratory - Chemistry Order SURGICAL PATH ORDER SURG PATH SPEC. UNKNOWN SP [facility] Apr 27, 2024 03:38 PM Consult Order SURGERY/CWM OUTPT Cons [employer] Manager's Choice [facility] June 27, 2024 08:15 AM Laboratory - Chemistry Order LEVETIRACETAM (Keppra) BLOOD (RED-PLAIN) SERUM SP [facility] Lab Results: +/- 30 days of the encounter This section includes the Chemistry and Hematology Lab Results on record with [place] for the patient. Radiology Reports and Pathology Reports are provided separately, in subsequent sections. Lab Results This section contains the Chemistry/Hematology Results that were resulted 30 days before or 30 daysafter the date of the Encounter. Date/Time Source Result Type Result - Unit Interpretation Reference Range Specimen Type Comment May 11, 2024 12:06 PM [facility] BASIC METABOLIC PANEL (non-fasting) SERUM Spe cimen Type: SERUM No comment entered. Ordering Provider: ALEJANDRA SNYDER Report Released Date/Time: Mar 16, 2024 10:45 AM Reporting Lab: [facility] [address] [address] Performing Lab: [address] [address] UREA NITROGEN 12 mg/dL 7-25 GLUCOSE 96 mg/dL 65-100 SODIUM 138 mmol/L 135-145 POTASSIUM 4.0 mmol/L 3.5-5.0 CHLORIDE 106 mmol/L 100-110 CO2 22 meq/L 20-30 CALCIUM 9.4 mg/dL 8.5-10.2 CREATININE, Serum 0.69 mg/dL 0.50-1.40 eGFR(CKD-EPI 2020) >90 mL/min >60 May 11, 2024 12:06 PM [facility] LEVETIRACETAM (Keppra) SERUM Specimen Type: S KENYATTA Comment: Brivaracetam (Briviact(R), Rikelta(R)) exhibits significant cross-reactivity in the Levetiracetam (Keppra(R), Spritam(R)) immunoassay. If Brivaracetam has been prescribed, order test code 57146 Levetiracetam by LCMSMS. Test Performed by [facility], [facility], [address] [place] [address] Caleb Mullins M.D., Ph.D., Director of Laboratories , CLIA [id number] TEST PERFORMED AT: , Ordering Provider: JUAN OBRIEN Report Released Date/Time: May 11, 2024 11:48 AM Reporting Lab: [facility] [address] [address] Performing Lab: [facility] [address] [address] LEVETIRACETAM (Keppra) 8.3 ug/mL 6.0-46. 0 May 11, 2024 12:06 PM [facility] FOLATE (WROX) SERUM Specimen Type: SERUM No comment entered. Ordering Provider: JUAN OBRIEN Report Released Date/Time: May 11, 2024 11:48 AM Reporting Lab: [facility] [address] [address] Performing Lab: [facility] [address] [facility] [address] FOLATE (WROX) 11.1 ng/mL >5.2 May 11, 2024 12:06 PM [facility] LIPID PANEL, NON FASTING SERUM Specimen Type: SERUM No comment entered. Ordering Provider: JUAN OBRIEN Report Released Date/Time: May 11, 2024 11:48 AM Reporting Lab: [facility] [address] [address] Performing Lab: [facility] [address] [address] CHOLESTEROL 110 mg/dL TRIGLYCERIDE 84 mg/dL 0-150 LDL calculated 63 mg/dL 0-129 CHOL/HDL 3.7 HDL CHOLESTEROL 30 mg/dL L 40-60 May 11, 2024 12:06 PM [facility] VITAMIN B12 SERUM Specimen Type: SERUM No comment entered. Ordering Provider: JUAN OBRIEN Report Released Date/Time: May 11, 2024 11:48 AM Reporting Lab: [facility] [address] [address] Performing Lab: [address] [address] VITAMIN B12 714 pg/mL 200-900 May 11, 2024 12:06 PM [facility] LIVER FUNCTION SERUM Specimen Type: SERUM No comment entered. Ordering Provider: JUAN OBRIEN Report Released Date/Time: May 11, 2024 11:48 AM Reporting Lab: [address] [address] Performing Lab: [address] [address] PROTEIN,TOTAL 7.4 g/dL 6.0-8.3 ALBUMIN 3.9 g/dL 3.5-5.0 ALKALINE PHOSPHATASE 58 U/L 40-150 AST 25 U/L 5-34 ALT 22 U/L BILIRUBIN, TOTAL 1.3 mg/dL H 0.2-1.2 BILIRUBIN, DIRECT 0.5 mg/dL 0-0.5 May 11, 2024 12:06 PM [facility] BASIC METABOLIC PANEL (non-fasting) SERUM Spe cimen Type: SERUM No comment entered. Ordering Provider: JUAN OBRIEN Report Released Date/Time: May 11, 2024 11:48 AM Reporting Lab: [facility] [address] [address] Performing Lab: [facility] [address] [address] UREA NITROGEN 13 mg/dL 7-25 GLUCOSE 96 mg/dL 65-100 SODIUM 138 mmol/L 135-145 POTASSIUM 4.0 mmol/L 3.5-5.0 CHLORIDE 106 mmol/L 100-110 CO2 23 meq/L 20-30 CALCIUM 9.4 mg/dL 8.5-10.2 CREATININE, Serum 0.69 mg/dL 0.50-1.40 eGFR(CKD-EPI 2020) >90 mL/min >60 May 11, 2024 12:06 PM [facility] CBC BLOOD Specimen Type: BLOOD No comment entered. Ordering Provider: JUAN OBRIEN Report Released Date/Time: May 11, 2024 11:48 AM Reporting Lab: [facility] [address] [address] Performing Lab: [address] [address] WBC 8.04 10*3/uL 4.50-11.00 RBC 4.60 10*6/uL 4.23-5.66 HGB 13.9 g/dL 12.8-17 HCT 40.8 39.2-50.4 MCV 88.7 fL 82-99 MCHC 34.1 g/dL 30.8-35.1 PLT 295 10*3/uL 140-360 RDW-CV 17.1 H 12.0-16.0 MCH 30.2 pg 26.2-32.6 May 11, 2024 12:06 PM [facility] VITAMIN D (25-OH) SERUM Specimen Type: SERUM No comment entered. Ordering Provider: JUAN OBRIEN Report Released Date/Time: May 11, 2024 11:48 AM Reporting Lab: [address] [address] Performing Lab: [facility] [address] [address] VITAMIN D (25-OH) 25 ng/mL 20-50 May 11, 2024 12:06 PM [facility] MAGNESIUM SERUM Specimen Type: SERUM No comment entered. Ordering Provider: JUAN OBRIEN Report Released Date/Time: May 11, 2024 11:48 AM Reporting Lab: [facility] [address] [address] Performing Lab: [address] [address] MAGNESIUM 2.1 mg/dL 1.6-2.6 May 11, 2024 12:06 PM [facility] HEMOGLOBIN A1C PANEL BLOOD Specimen Type: [...] May 11, 2024 11:48 AM Reporting Lab: [facility] [address] [address] Performing Lab: [address] [address] HEMOGLOBIN A1C 5.2 4.0-5.6 May 11, 2024 12:06 PM [facility] TSH SERUM Specimen Type: SERUM No comment entered. Ordering Provider: JUAN OBRIEN Report Released Date/Time: May 11, 2024 11:48 AM Reporting Lab: [address] [address] Performing Lab: [address] [address] TSH 1.52 u[IU]/mL 0.35-5.00 Social History: Smoking Status (Most current) and Tobacco Use (All prior to encounter date) This section includes the most current, and the historical, smoking and tobacco- related health factors from the [place] facility where the Encounter took place. Current Smoking Status This section includes the most current smoking, or tobacco-related health factor, from the [place] facility where the Encounter took place. Date/Time Current Smoking Status Comment Facil it July 24, 2023 10:00 AM VA-TOBACCO FORMER USER [place] [facility] [place] [facility] Tobacco Use History This section includes a history of the smoking, or tobacco-related health factors, that were collected on or before the date of the Encounter. The data comes from the [place] facility where the Encounter took place. Date/Time Smoking Status/Tobac co Use Comment Facility July 24, 2023 10:00 AM VA-TOBACCO QUIT 15 YRS OR MORE [place] [facility] [place] [facility] July 14, 2022 03:30 PM VA-TOBACCO FORMER USER [facility] [place] [facility] July 14, 2022 03:30 PM VA-TOBACCO QUIT 15 YRS OR MORE [place] [facility] [place] [facility] Aug 05, 2021 01:00 PM VA-TOBACCO FORMER USER [place] [facility] [place] [facility] Aug 05, 2021 01:00 PM VA-TOBACCO QUIT 5 TO < 15 YRS [facility] [place] [facility] Sep 09, 2019 01:25 PM VA-TOBACCO FORMER USER [facility] [place] [facility] Sep 09, 2019 01:25 PM VA-TOBACCO QUIT 5 TO < 15 YRS [facility] [place] [facility] Dec 04, 2017 10:18 AM VA-TOBACCO FORMER USER [facility] [place] [facility] Dec 04, 2017 10:18 AM VA-TOBACCO QUIT 5 TO < 15 YRS [facility] [place] [facility] May 29, 2017 09:09 AM QUIT TOBACCO USE > 7 YEARS AGO [facility] [place] [facility] Apr 23, 2015 08:21 AM QUIT TOBACCO USE > 7 YEARS AGO [facility] [place] [facility] Apr 23, 2015 08:21 AM QUIT TOBACCO USE 1-7 YEARS AGO [facility] [place] [facility] Mar 06, 2011 11:06 AM QUIT TOBACCO USE 1-7 YEARS AGO [facility] Apr 08, 2010 10:56 AM CURRENT SMOKER cigar once in a while [facility] Apr 08, 2010 10:56 AM V1-PT DECLINES REF TO TOBACCO CESS PRGM [facility] Apr 08, 2010 10:56 AM V1-PT DECLINES TOBACCO CESSATION MEDS [facility] Apr 08, 2010 10:56 AM V1-PT READY TO QUIT TOBACCO USE [facility] Feb 21, 2009 09:16 AM CURRENT SMOKER cigar once in a while [facility] Feb 21, 2009 09:16 AM V1-PT DECLINES REF TO TOBACCO CESS PRGM [facility] Feb 21, 2009 09:16 AM V1-PT DECLINES TOBACCO CESSATION MEDS [facility] Feb 21, 2009 09:16 AM V1-PT THINKING ABOUT QUIT TOBACCO USE [facility] Dec 16, 2007 09:15 AM QUIT TOBACCO USE 1-7 YEARS AGO [facility] Apr 01, 2007 11:08 AM QUIT TOBACCO USE 1-7 YEARS AGO [facility] Sep 28, 2006 08:52 AM QUIT TOBACCO USE IN PAST YEAR [facility] Apr 21, 2006 10:31 AM QUIT TOBACCO USE IN PAST YEAR August 2005 [facility] Dec 16, 2005 10:02 AM CURRENT SMOKER OCCASIONAL CIGAR [facility] May 19, 2001 03:50 PM CURRENT SMOKER see below [facility] Pathology Reports: +/- 30 days of [...] the Encounter. The data comes from all [place] treatment facilities. Date/Time Pathology Report Provider Source May 02, 2024 10:07 AM LR SURGICAL PATHOLOGY REPORT: LOCAL TITLE: LR SURGICAL PATHOLOGY REPORT STANDARD TITLE: PATHOLOGY REPORT DATE OF NOTE: MAY 02, 2024@10:07:13 ENTRY DATE: MAY 02, 2024@10:07:13 AUTHOR: RADHA MARTINEZ MD EXP COSIGNER: URGENCY: STATUS: COMPLETED $APHDR Reporting Lab: [facility] [CLIA# [id number]] [address] [place] [address] - - - - - - - [...] (Received Apr 28, 2024): A:LEFT UPPER BACK SKIN([id number]) B:RIGHT UPPER BACK SKIN([id number]) - - - - - - - [...] Accession No. [facility] 1510 - - - - - - - - - - - - - - - - - - - - - - - - - - - - - - - - - - - - - - - - GROSS DESCRIPTION: The specimen is recieved from [facility], [facility] 1510;A;1;Luis KRISHNA A. Received in formalin labeled with the patient's name, social security number, and left upper back is an unoriented, puga-ngerete skin shave measuring 0.6 x 0.4 x [...] in cassette B2. GIA Pacheco ([facility]) 04/28/2024 /juliane Martinez MD, CPjessy Board Certified Dermatopathologist Signed May 02, 2024@10:07 Performing Laboratory: Surgical Pathology Report Performed By: [facility] [CLIA# [id number]] [address] [place] [address] $FTR - - - - - - [...] - - JAY KRISHNA STANDARD FORM 515 ID:[id number] SEX:M :1960 AGE: 64 LOC:*COUNTS INCLUDE 234 BEDS AT THE [facility] PCP: /juliane Martinez MD, Charline Board Certified Dermatopathologist Signed: 05/02/2024 10:07 RADHA MARTINEZ MD [facility] May 02, 2024 10:04 AM LR SURGICAL PATHOLOGY REPORT: LOCAL TITLE: LR SURGICAL PATHOLOGY REPORT STANDARD TITLE: PATHOLOGY DIAGNOSTIC STUDY REPORT DATE OF NOTE: MAY 02, 2024@10:04:16 ENTRY DATE: MAY 02, 2024@10:04:16 AUTHOR: RADHA MARTINEZ MD EXP COSIGNER: URGENCY: STATUS: COMPLETED $APHDR Reporting Lab: [facility] [CLIA# [id number]] [address] [place] [address] - - - - - - - [...] - - - BRIEF CLINICAL HISTORY: TAD 82 SPECIMEN A- L UPPER BACK 2MM HYPERPIGMENTED MACILE WITH IRREGULAR NETWORK SPECIMEN B- R UPPER BACK 4MM PAPULE WITH IRREGULAR NETWORK - - - - - - - - - - - - - - - - - - - - - - - - - - - - - - - - - - - - - - - - PREOPERATIVE DIAGNOSIS: TAD 82 SPECIMEN A- ATYPICAL NEVI SPECIMEN B- ATYPICAL [...] - - - - PATHOLOGY REPORT Accession NoSanjuana NGUYỄN - - - - - - - - - - - - - - - - - - - - - - - - - - - - - - - - - - - - - - - - Gross description: The specimen is recieved from [facility], [facility] 25-82 RSP 25 1510;A;1;KRISHNA,Luis A. Received in formalin labeled with [...] cross section in cassette B2. GIA Pacheco ([facility]) 04/28/2024 A. Skin, left upper [...] for further evaluation and treatment. CPT codes 70734r0 /es/ RADHA MARTINEZ MD Board Certified Dermatopathologist Signed May 02, 2024@10:04 Performing Laboratory: Surgical Pathology Report Performed By: [facility] [CLIA# [id number]] [address] [place] [id number] $FTR - - - - - - [...] - - JAY KRISHNA STANDARD FORM 515 ID:[id number] SEX:M :1960 AGE: 64 LOC:[facility] DERMATOLOGY MAIL LIST LIBRARIAN 1 PM PCP: Juan Obrien NP /daniela/ RADHA MARTINEZ MD Board Certified Dermatopathologist Signed: 05/02/2024 10:04 RADHA MARTINEZ MD [facility] Encounter Notes: All associated encounter notes This section contains the clinical notes associated to the Encounter. Date/Time Encounter Note(s) Provider Source May 24, 2024 11:00 AM PSYCHOLOGY CONSULT: LOCAL TITLE: CONSULT REPORT/MENTAL HEALTH/PSYCHOLOGY STANDARD TITLE: PSYCHOLOGY CONSULT DATE OF NOTE: MAY 24, 2024@11:00 ENTRY DATE: JUN 02, 2024@12:28:07 AUTHOR: WISAM WOO EXP COSIGNER: URGENCY: STATUS: COMPLETED Administratively completing consult, attached to appointment date. Please see chart. /juliane WOO ELECTRIC METER TESTER, [facility] Signed: 06/02/2024 12:28 WISAM WOO [facility] May 24, 2024 10:42 AM MENTAL HEALTH E & M NOTE: LOCAL TITLE: PRIMARY MENTAL HEALTH ASSESSMENT NOTE STANDARD TITLE: MENTAL HEALTH E & M NOTE DATE OF NOTE: MAY 24, 2024@10:42 ENTRY DATE: MAY 24, 2024@10:44:26 AUTHOR: LIA BARROS EXP COSIGNER: MINDI NAVARRO URGENCY: STATUS: COMPLETED PRIMARY MENTAL HEALTH ASSESSMENT NOTE Has ADDENDA [facility] HEALTH ASSESSMENT NOTE DURATION: 45 minutes REFERRING PROVIDER: Juan Obrien DNP REASON FOR REFERRAL: Difficulty adjusting to several significant medical events in the past year with having had a seizure most recently. Informed consent and limits of confidentiality were provided. [place] is a 64 year-old male with a PMH of anxiety, diabetes and chronic pain. was identified by two means, full name and date of . CHIEF COMPLAINT: is grappling with disbelief and shock after experiencing a seizure that has significantly disrupted his life. An incident a month ago, when his CPAP machine came off during sleep, led his to suspect that he had a seizure, during which he tore his rotator cuff. This prompted an ambulance call and a visit to the hospital, where he was informed that he had indeed experienced a seizure and was instructed not to drive for six months. This restriction has deeply affected Pedro, particularly because driving was a cherished activity, and losing that independence has strained his mood and relationships. 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 He and his have to adjust to her taking the wheel?a shift that comes with underlying anxiety about his health and future plans. Though they are newly retired and had hoped for leisurely drives to the [facility], those plans are now uncertain, as his feels uneasy driving such long distances alone. Pedro emphasizes that he did not intend to have a seizure or cause any inconvenience, and he feels frustrated that his entire situation is not being fully considered. Adding to his frustration, his medical observer suggested that his seizure might be related to alcohol use, which he finds dissatisfying. He fears being perceived as incapable or dependent and is concerned about the limitations imposed by his current situation. He remains unconvinced he truly experienced a seizure, suspecting it may have been triggered by his medications not being adjusted to account for his recent weight loss and reduced appetite since starting Ozempic, rather than from alcohol. FUNCTIONAL ASSESSMENT: o SLEEP: Pedro did not endorse any sleep difficulties. o APPETITE: noted that the medication (Ozempic) that he is on for weight loss has altered his diet and appetite. I'm more aware of putting in my face. o ALCOHOL: I don't abuse alcohol. Haven't had a drink since my seizure. Endorsed social drinking prior to seizure. before. A couple of beers a couple of times a month. o CAFFIENE: I drink a couple cups of coffee in the morning. o ILLICIT DRUGS/TOBACCO: Pedro did not endorse use of illicit drugs/tobacco. o CLOSE RELATIONSHIPS: Pedro noted having a close relationship with his of several decades. He additionally noted some relational strain from his inability to drive at this time and feeling like a burden to his who provides him with transportation. When she feels stressed out, she's going to let you know. I can't drive and unleash that load off of her. o LIVING SITUATION: Pedro owns a condo where he lives with his . 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 o COPING: noted that not able to play with toys, has been very challenging for him and that he is attempting to adapt, adjust and overcome. o PAIN/CHRONIC HEALTH CONDITIONS: Diabetes: denied having diabetes, noting that he had one elevated A1C but that all others have been within the normal range. He acknowledged having GERD and chronic pain in his right leg, knees, back, and shoulder. 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 o CULTURE: did not endorse any aspects of his culture or identity that he considers to impact or be impacted by his mental/medical health. LETHALITY: Suicidal or homicidal ideation: No Suicidal or homicidal plans: No Suicidal or homicidal intention: No Previous suicide attempts: No INTERVENTION: Gathered psychosocial history and functioning Provided psychoeducation on how CBT strategies can address his symptoms of anxiety. Conducted SI/HI risk assessment Provided information on -[facility] RISK LEVEL IMPRESSION: Pedro presents at low chronic and acute risk of harm to self and others at this time SCREENERS: PHQ-9: 5, mild depression, not difficult at all NADJA-7: 5, anxiety, somewhat difficult DIAGNOSES: Anxiety Disorder, Unspecified(F41.9) IMPRESSIONS/PLAN: Pedro has had several significant medical events in the past year with having had a seizure most recently. As a result, he is now dealing with limitations such as not being able to drive. He is also experiencing heightened emotions since having the seizure. His primary goals for [facility] are to receive support with managing stress related to his current life adjustments. In collaboration with [facility] considering evidence based treatment, clinical judgment and patient preference, options of treatment were offered. Agreed upon CBT protocol including stress reduction and anxiety management, challenging unhelpful thoughts, exploring other meaningful activities, and emotion processing. He will return to [facility] for roughly 3-5, individual sessions. He will return to [facility], Thursday, 05/31 at 11:00am. INTERDICIPLINARY TREATMENT PLANNING INVOLVING: Referring provider will be alerted of this plan. Suicide Screen: C-SSRS Screening [place]-Suicide Severity Rating Scale (C-SSRS Screener) 1. Over the past month, have you wished you were or wished you could go to sleep and not wake up? Yes 2. Over the past month, have you [...] required due to responses to other questions. This case is supervised by Dr. Mindi Navarro, Staff Psychologist. Diagnosis, treatment plan, and response to care are reviewed in standard 1-hour, or more, weekly individual and group supervision meetings. [facility] has agreed and signed consent to have sessions both audio and video recorded for training purposes. /daniela/ LIA BARROS MA Supervisor [employer] Signed: 05/26/2024 12:58 /daniela/ MINDI NAVARRO, PhD STAFF PSYCHOLOGIST Cosigned: 05/26/2024 16:24 Receipt Acknowledged By: 05/27/2024 08:51 /daniela/ Juan Obrien DNP, BEHAVIORAL HEALTH TECHNICIAN-BC, CNL Primary Care Nurse Practitioner 05/26/2024 ADDENDUM STATUS: COMPLETED I have reviewed this case and concur with the clinical impressions and recommendations made by this trainee who is under my clinical supervision. /daniela/ MINDI NAVARRO, PhD STAFF PSYCHOLOGIST Signed: 05/26/2024 16:25 LIA BARROS CNTRL [facility]
--- OUTSIDE RECORDS SUMMARY | 2024-06-29 12:29 | XMS_ITS | Clinical Summary ---
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 Name Role Phone Pcp, No Primary Care Provider Unavailabl e Allergies Active Allergy Reactions Criticality Noted Date Comments Erythromycin Other (See Comments) 06/16/2023 FINGER SWELLING Encounters Date Type Department Care Team Description 06/20/2024 10:45 AM EDT Office [place] [facility] [place] [address] Slick Weinstein MD Hx of right BKA (HCC) (Primary Dx) 06/20/2024 Orders [place] [facility] [place] [address] Slick Weinstein MD from Last 3 Months Social History Tobacco Use Types Packs/Day Years Used Date Smoking Tobacco: Never Assessed Sex and Gender Information Value Date Recorded Sex Assigned at Male 06/15/2023 10:38 AM EDT Legal Sex Male 8:03 PM EDT Gender Identity Male 06/15/2023 10:38 AM EDT Sexual Orientation Other 06/15/2023 10 :38 AM EDT Plan of Treatment Upcoming Encounters Date Type Department Care Team ([facility] st Contact Info) Description 07/12/2024 9:45 AM EDT Office [place] [facility] [place] [address] Slick Weinstein MD [address] [place] [address] Health Maintenance Due Date Last Done Comments Hepatitis C Virus Screening 1961 HIV Screening 1974 DTaP/Tdap/Td Vaccines (1 - Tdap) 01/25/1980 Colonoscopy 2006 Pneumococcal Vaccines 50+ (1 of 1 - PCV) 2011 Zoster (Shingles) Vaccine (1 of 2) 2011 RSV Vaccine 60 years and older and Patients (1 - Risk 60-74 years 1-dose series) 2021 Influenza Vaccine 09/23/2024 11/11/2023, , 12/31/2022, Additional history exists COVID-19 Vaccine Completed 02/11/2024, 09/2023, 01/22/2023, Additional history exists Hepatitis B Vaccines Aged Out No long er eligible based on patient's age to complete this topic Insurance [facility] Care Teams Fire Boat Engineer Relationship Specialty Start Date End Date Pcp, No PCP - General General Medicine 06/16/23
--- OUTSIDE RECORDS SUMMARY | 2024-06-29 12:29 | XMS_ITS ---
Author Name [facility] [place] [facility] [place] [facility] [place] [facility] [place] Address [address] [place] [address] Care Team Providers Care Loss Prevention Lead Name Role Phone JUAN GOMEZ Primary Care Provider Un[facility]ailed[facility] Insurance Providers: All historical and [...] JESSE FAMIL Y Mar 07, 2000 105 [id number] [phone] JAY KRISHNA PATIENT ANTHEM BCBS FEDERAL PREFERRED PROVIDER ORGANIZAT ION (PPO) STAND JESSE FAMIL Y Mar 07, 2000 105 [id number] JAY KRISHNA PATIENT ANTHEM BCBS FEDERAL PREFERRED PROVIDER ORGANIZAT ION (PPO) STAND JESSE SELF Mar 07, 2000 105 [id number] JAY KRISHNA PATIENT BCBS [place] FEP PREFERRED PROVIDER ORGANIZAT ION (PPO) PSHB STAND JESSE FAMIL Y Feb 24, 2024 [id number] JAY KRISHNA PATIENT [place] PREFERRED PROVIDER ORGANIZAT ION (PPO) PSHB STAND JESSE FAMIL Y Feb 24, 2024 [id number] JAY KRISHNA PATIENT [place] DENTAL DENTAL INSURANCE STAND JESSE Mar 07, 2000 DENTAL [id number] JAY KRISHNA PATIENT [place] FEDERAL PREFERRED PROVIDER ORGANIZAT ION (PPO) PSHB STAND JESSE FAMIL Y Feb 24, 2024 [id number] [phone] JAY KRISHNA PATIENT [place] FEP BCBS PRESCRIPT ION CAREM ARK FEPRX PLAN Mar 07, 2000 [id number] JAY KRISHNA PATIENT [place] FEPRX PLAN PRESCRIPT ION CAREM ARK FEPRX Feb 23, 2010 [id number] JAY KRISHNA PATIENT [place] FEPRX PLAN PRESCRIPT ION CAREM ARK FEPRX Mar 07, 2000 [id number] [phone] JAY KRISHNA PATIENT [place]-F EP BCBS PRESCRIPT ION BCBS FEP Feb 23, 2010 [id number] JAY KRISHNA PATIENT MEDICARE ([facility]) MEDICARE () PART A May 25, 2011 PART A [id number] [facility] [phone] JAY KRIHSNA PATIENT MEDICARE ([facility]) MEDICARE () PART A May 25, 2011 PART A [id number] [id number] JAY KRISHNA PATIENT MEDICARE ([facility]) MEDICARE () PART A May 25, 2011 PART A [id number] [phone] JAY KRISNHA PATIENT MEDICARE ([facility]) MEDICARE () PART A May 25, 2011 PART A [id number] JAY KRISHNA PATIENT MEDICARE ([facility]) MEDICARE () PART A May 25, 2011 PART A [id number] [phone] JAY KRISHNA PATIENT MEDICARE ([facility]) MEDICARE () PART A May 25, 2011 PART A [id number] [phone] JAY KRISHNA PATIENT MEDICARE (WNR) MEDICARE (M) PART A May 25, 2011 PART A [id number] [facility] JAY KRISHNA PATIENT MEDICARE (WNR) MEDICARE (M) PART A May 25, 2011 PART A [id number] [facility] [phone] JAY KRISHNA PATIENT Selected Encounter This section includes the information on record at [place] for the Encounter. Date/Time Encounter Type Encounter Description Reason Provider Source Feb 11, 2024 10:00 AM OFFICE O/P EST MOD 30 MIN PRIMARY CARE/MEDICINE ICD-10-CM K63.5 Polyp of colon LUIS GOMEZ Skyla Encounter Template Text not used by [place] Assessments - Encounter Diagnoses This section includes the primary and secondary diagnoses documented for the Encounter. Date/Time Primary/Secondary Diagnosis Diagnosis Name Provider Source Mar 02, 2024 05:17 PM PRIMARY Polyp of colon GOMEZ,WILL JAREN J [facility] Mar 02, 2024 05:17 PM SECONDARY Encounter for immunization SHOAIB NETTLES [facility] [place] [facility] Mar 02, 2024 05:17 PM SECONDARY Essential (primary) hypertension GOMEZ,WILL JAREN J [facility] [place] [facility] Mar 02, 2024 05:17 PM SECONDARY Iron deficiency anemia, unspecified GOMEZ,WILL JAREN J [facility] [place] [facility] Mar 02, 2024 05:17 PM SECONDARY Other low back pain GOMEZ,WILL JAREN J [facility] [place] [facility] Mar 02, 2024 05:17 PM SECONDARY Permanent atrial fibrillation GOMEZ,WILL JAREN J [facility] [place] [facility] Mar 02, 2024 05:17 PM SECONDARY Type 2 diabetes mellitus without complications GOMEZ,WILL JAREN J [facility] Mar 02, 2024 05:17 PM SECONDARY Unspecified atrial fibrillation GOMEZ[facility] Plan of Treatment: Future Appointments (+ 6 months) and Future Tests (+/- 45 days) The Plan of Treatment section includes future care activities for the patient from all [place] treatmentfacilities. This section includes future appointments and future orders which are active, pending or scheduled. Future Appointments This section includes appointments that were scheduled to occur 6 months from the date of the Encounter, up to a maximum of 20 appointments. The data comes from all [place] treatment facilities. Appointment Date/Time Appointment Type Appointme nt Facility Name Mar 16, 2024 10:00 AM AMBULATORY - MEDICINE [facility] [place] [facility] Mar 22, 2024 08:30 AM AMBULATORY - MEDICINE [facility] [facility] Apr 27, 2024 09:30 AM AMBULATORY - MEDICINE [facility] [place] [facility] Apr 27, 2024 10:00 AM AMBULATORY - MEDICINE [facility] [place] [facility] Apr 28, 2024 09:30 AM AMBULATORY - MEDICINE [facility] [place] [facility] May 03, 2024 08:00 AM AMBULATORY - MEDICINE [facility] [place] [facility] May 11, 2024 11:00 AM AMBULATORY - MEDICINE [facility] [place] [facility] May 24, 2024 11:00 AM AMBULATORY - PSYCHIATRY [facility] [place] [facility] Jun 07, 2024 12:10 PM AMBULATORY - MEDICINE [facility] [place] [facility] Jun 13, 2024 02:00 PM AMBULATORY - MEDICINE [facility] [place] [facility] June 23, 2024 10:30 AM AMBULATORY - MEDICINE [facility] [place] [facility] June 23, 2024 11:30 AM AMBULATORY - MEDICINE [facility] [place] [facility] June 27, 2024 08:00 AM AMBULATORY - MEDICINE [facility] [place] [facility] July 19, 2024 09:00 AM AMBULATORY - MEDICINE [facility] [facility] Aug 08, 2024 09:30 AM AMBULATORY - MEDICINE [facility] [place] [facility] Aug 09, 2024 11:00 AM AMBULATORY - MEDICINE [facility] [place] [facility] Lab Results: +/- 30 days of the encounter This section includes the Chemistry and Hematology Lab Results on record with [place] for the patient. Radiology Reports and Pathology Reports are provided separately, in subsequent sections. Lab Results This section contains the Chemistry/Hematology Results that were resulted 30 days before or 30 daysafter the date of the Encounter. Date/Time Source Result Type Result - Unit Interpretation Reference Range Specimen Type Comment Feb 11, 2024 07:51 AM [facility] PT & INR (PROTIME) PLASMA Specimen Type: PLASMA No comment entered. Ordering Provider: JUAN GOMEZ Report Released Date/Time: Jan 29, 2024 02:25 PM Reporting Lab: [facility] [address] [address] Performing Lab: [address] [address] INR 1.2 PROTIME 12.8 s 10.0-13.1 Feb 11, 2024 07:51 AM [facility] PSA SERUM Specimen Type: SERUM No comment entered. Ordering Provider: JUAN GOMEZ Report Released Date/Time: Jan 29, 2024 02:25 PM Reporting Lab: [facility] [address] [address] Performing Lab: [address] [address] PSA 3.36 ng/mL 0.00-4.00 Feb 11, 2024 07:51 AM [facility] LIPID PANEL, NON FASTING SERUM Specimen Type: SERUM No comment entered. Ordering Provider: JUAN GOMEZ Report Released Date/Time: Jan 29, 2024 02:25 PM Reporting Lab: [address] [address] Performing Lab: [address] [address] CHOLESTEROL 128 mg/dL TRIGLYCERIDE 81 mg/dL 0-150 LDL calculated 78 mg/dL 0-129 CHOL/HDL 3.8 HDL CHOLESTEROL 34 mg/dL L 40-60 Feb 11, 2024 07:51 AM [facility] LIVER FUNCTION SERUM Specimen Type: SERUM No comment entered. Ordering Provider: JUAN GOMEZ Report Released Date/Time: Jan 29, 2024 02:25 PM Reporting Lab: [facility] [address] [address] Performing Lab: [address] [address] PROTEIN,TOTAL 7.3 g/dL 6.0-8.3 ALBUMIN 4.0 g/dL 3.5-5.0 ALKALINE PHOSPHATASE 72 U/L 40-150 AST 19 U/L 5-34 ALT 14 U/L BILIRUBIN, TOTAL 1.0 mg/dL 0.2-1.2 Feb 11, 2024 07:51 AM [facility] CBC BLOOD Specimen Type: BLOOD No comment entered. Ordering Provider: JUAN GOMEZ Report Released Date/Time: Jan 29, 2024 02:25 PM Reporting Lab: [address] [address] Performing Lab: [address] [address] WBC 5.97 10*3/uL 4.50-11.00 RBC 5.12 10*6/uL 4.23-5.66 HGB 12.1 g/dL L 12.8-17 HCT 39.0 L 39.2-50.4 MCV 76.2 fL L 82-99 MCHC 31.0 g/dL 30.8-35.1 PLT 280 10*3/uL 140-360 RDW-CV 19.3 H 12.0-16.0 MCH 23.6 pg L 26.2-32.6 Feb 11, 2024 07:51 AM [facility] BASIC METABOLIC PANEL (non-fasting) SERUM Spe cimen Type: SERUM No comment entered. Ordering Provider: JUAN GOMEZ Report Released Date/Time: Jan 29, 2024 02:25 PM Reporting Lab: [address] [address] Performing Lab: [address] [address] UREA NITROGEN 11 mg/dL 7-25 GLUCOSE 110 mg/dL H 65-100 SODIUM 142 mmol/L 135-145 POTASSIUM 4.6 mmol/L 3.5-5.0 CHLORIDE 108 mmol/L 100-110 CO2 24 meq/L 20-30 CREATININE, Serum 0.84 mg/dL 0.50-1.40 eGFR(CKD-EPI 2020) >90 mL/min >60 Feb 11, 2024 07:51 AM [facility] HEMOGLOBIN A1C PANEL BLOOD Specimen Type: BLO OD Comment: Values obtained from A1C measurements can vary. For atypical A1C assays, a reported value of 7.0 could actually be between 6.72 and 7.28 if measured by a reference method. A reported value of 9.0 could actually be between 8.73 and 9.27. Ref: http://www.ngsp.org/CAPdata.asp Ordering Provider: JUAN GOMEZ Report Released Date/Time: Jan 29, 2024 02:25 PM Reporting Lab: [address] [address] Performing Lab: [address] [address] HEMOGLOBIN A1C 5.3 4.0-5.6 Feb 11, 2024 07:51 AM [facility] MICROALBUMIN CREATININE RATIO PANEL URINE Spe cimen Type: URINE No comment entered. Ordering Provider: JUAN GOMEZ Report Released Date/Time: Jan 29, 2024 02:25 PM Reporting Lab: [facility] [address] [address] Performing Lab: [address] [address] MICROALBUMIN/CREATININE RATIO 7.9 mg/g 0 -29.9 MICROALBUMIN,QUANTITATIVE 1.8 mg/dL RR U NAVAIL CREATININE URINE 227.28 mg/dL Vital Signs: All taken on the encounter date This section contains inpatient and outpatient Vital Signs collected on the date of the Encounter. Date/Time Temperature Pulse Blood Pressure Respiratory Rate SP02 Pain Height Weight Body Mass Index Source Feb 11, 2024 10:25 AM 166/94 [place] [facility] [facility] Feb 11, 2024 10:13 AM 166/94 [facility] [place] [facility] Feb 11, 2024 09:45 AM 98.1 110 180/110 20 99 7 75 327 41 [facility] Immunizations: All administered on the encounter date This section contains immunizations associated to the Encounter. 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 Booster for Series, ADMINISTERE D AT [facility] PNEUMOCOCCAL CONJUGATE PCV20, POLYSACCHARID E [id number] CONJUGATE, ADJUVANT, PF Feb 11, 2024 PERRIElbaMICHELBEATRIZSHOAIB JORDAN RIGHT DELTO ID [id number] [employer] ADMINISTERE D AT [facility] Social History: Smoking Status (Most current) and Tobacco Use (All prior to encounter date) This section includes the most current, and the historical, smoking and tobacco- related health factors from the [place] facility where the Encounter took place. Current Smoking Status This section includes the most current smoking, or tobacco-related health factor, from the [place] facility where the Encounter took place. Date/Time Current Smoking Status Comment [facility] July 24, 2023 10:00 AM [place]-TOBACCO QUIT 15 YRS OR MORE [facility] Tobacco Use History This section includes a history of the smoking, or tobacco-related health factors, that were collected on or before the date of the Encounter. The data comes from the [place] facility where the Encounter took place. Date/Time Smoking Status/Tobac co Use Comment [facility] July 24, 2023 10:00 AM VA-TOBACCO QUIT 15 YRS OR MORE [place] [facility] [place] [facility] July 14, 2022 03:30 PM VA-TOBACCO FORMER USER [place] [facility] [place] [facility] July 14, 2022 03:30 PM VA-TOBACCO QUIT 15 YRS OR MORE [place] [facility] [place] [facility] Aug 05, 2021 01:00 PM VA-TOBACCO FORMER USER [place] [facility] [place] [facility] Aug 05, 2021 01:00 PM VA-TOBACCO QUIT 5 TO < 15 YRS [place] [facility] [place] [facility] Sep 09, 2019 01:25 PM VA-TOBACCO FORMER USER [place] [facility] [place] [facility] Sep 09, 2019 01:25 PM VA-TOBACCO QUIT 5 TO < 15 YRS [facility] [place] [facility] Dec 04, 2017 10:18 AM VA-TOBACCO FORMER USER [facility] [place] [facility] Dec 04, 2017 10:18 AM VA-TOBACCO QUIT 5 TO < 15 YRS [facility] [place] [facility] May 29, 2017 09:09 AM QUIT TOBACCO USE > 7 YEARS AGO [facility] [place] [facility] Apr 23, 2015 08:21 AM QUIT TOBACCO USE > 7 YEARS AGO [facility] [place] [facility] Apr 23, 2015 08:21 AM QUIT TOBACCO USE 1-7 YEARS AGO [place] [facility] [place] [facility] Mar 06, 2011 11:06 AM QUIT TOBACCO USE 1-7 YEARS AGO [place] [facility] [facility] Apr 08, 2010 10:56 AM CURRENT SMOKER cigar once in a while [place] [facility] [place] [facility] Apr 08, 2010 10:56 AM V1-PT DECLINES REF TO TOBACCO CESS [facility] [place] [facility] Apr 08, 2010 10:56 AM V1-PT DECLINES TOBACCO CESSATION MEDS [place] [facility] [place] [facility] Apr 08, 2010 10:56 AM V1-PT READY TO QUIT TOBACCO USE [place] [facility] [facility] Feb 21, 2009 09:16 AM CURRENT SMOKER cigar once in a while [facility] [facility] Feb 21, 2009 09:16 AM V1-PT DECLINES REF TO TOBACCO CESS PRGM [place] [facility] [facility] Feb 21, 2009 09:16 AM V1-PT DECLINES TOBACCO CESSATION MEDS [place] [facility] [facility] Feb 21, 2009 09:16 AM V1-PT THINKING ABOUT QUIT TOBACCO USE [place] [facility] [place] [facility] Dec 16, 2007 09:15 AM QUIT TOBACCO USE 1-7 YEARS AGO [facility] [facility] Apr 01, 2007 11:08 AM QUIT TOBACCO USE 1-7 YEARS AGO [facility] Sep 28, 2006 08:52 AM QUIT TOBACCO USE IN PAST YEAR [facility] Apr 21, 2006 10:31 AM QUIT TOBACCO USE IN PAST YEAR August 2005 [facility] Dec 16, 2005 10:02 AM CURRENT SMOKER OCCASIONAL CIGAR [facility] May 19, 2001 03:50 PM CURRENT SMOKER see below [facility] Encounter Notes: All associated encounter notes This section contains the clinical notes associated to the Encounter. Date/Time Encounter Note(s) Provider Source Feb 11, 2024 12:52 PM PRIMARY CARE NURSE PRACTITIONER OUTPATIENT NOTE: LOCAL TITLE: NURSE PRACTITIONER OUTPATIENT NOTE STANDARD TITLE: PRIMARY CARE NURSE PRACTITIONER OUTPATIENT NOTE DATE OF NOTE: FEB 11, 2024@12:52 ENTRY DATE: FEB 11, 2024@12:52:28 AUTHOR: JUAN GOMEZ COSIGNER: URGENCY: STATUS: COMPLETED DEPARTMENT OF [facility] Toll Free Number Primary Care Telephone Assistance can be reached at extension [phone] [facility] scheduling can be reached at extension [phone] [facility] scheduling can be reached at ext [phone] FEB 11, 2024 JAY KRISHNA [address] [place], [place], [address] Thank you for coming in for your [...] By: 02/11/2024 13:30 /es/ ADIN OWEN ADVANCED RECORDS COORDINATOR JUAN GOMEZ [facility] [place] [facility] Feb 11, 2024 10:21 AM PREVENTIVE MEDICINE NURSING NOTE: LOCAL TITLE: CLINICAL REMINDERS/NURSING STANDARD TITLE: PREVENTIVE MEDICINE NURSING NOTE DATE OF NOTE: FEB 11, 2024@10:21 ENTRY DATE: FEB 11, 2024@10:21:45 AUTHOR: BOB NETTLES EXP COSIGNER: URGENCY: STATUS: COMPLETED Pneumococcal Conjugate Vaccine (PCV15/PCV20): PCV20 (Prevnar 20) Administered: PNEUMOCOCCAL CONJUGATE PCV20, POLYSACCHARIDE [id number] CONJUGATE, ADJUVANT, PF Date Administered: Feb 11, 2024 10:00 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 COVID-19 Immunization: Moderna Monovalent (Spikevax) Administered: COVID-19 (MODERNA), MRNA, LNP-S, PF, 50 MCG/0.5 ML (AGES 12+ YEARS) Date Administered: Feb 11, 2024 10:00 Series: Booster Electric Motor Repairer: [employer]. Lot: [id number] Exp Date: July 23, 2024 NDC: [id number] Admin Route/Site: INTRAMUSCULAR/LEFT DELTOID Dosage: 0.5mL Vaccine Information Statement(s): COVID-19 MRNA VACCINE (12+ YRS) VIS Dec 10, 2023 ([place]) Order By: Policy Administered By: Bob Nettles Vaccine administered without complications. Influenza Immunization: The patient has received the seasonal influenza vaccine for the current season at another location. Documented: INFLUENZA, UNSPECIFIED FORMULATION Historical Date Administered: Nov 11, 2023 Outside Location: Outside Healthcare Provider Information Source: FROM OTHER PROVIDER /daniela/ Bob Nettles MSN RN CNL Primary Care RN Signed: 02/11/2024 10:24 BOB NETTLES [facility] [facility] Feb 11, 2024 10:16 AM PRIMARY CARE NURSE PRACTITIONER OUTPATIENT NOTE: LOCAL TITLE: NURSE PRACTITIONER OUTPATIENT NOTE STANDARD TITLE: PRIMARY CARE NURSE PRACTITIONER OUTPATIENT NOTE DATE OF NOTE: FEB 11, 2024@10:16 ENTRY DATE: FEB 11, 2024@10:16:33 AUTHOR: JUAN GOMEZ EXP COSIGNER: URGENCY: STATUS: COMPLETED NURSE PRACTITIONER OUTPATIENT NOTE Has ADDENDA Chief complaint: Patient is a 64 year old [place]. HPI: Pleasant male [place] here to follow up. He did have colonoscopy and EGD. Seven days later he experienced a GIB and was admitted to [facility], given two transfussions. He is followed in [...] and A/C. 3. Diabetes mellitus (SNOMED CT 10120117) - Controlled. 4. Benign essential hypertension - he reports taking meds as ordered, clarified valsartan, he reports higher at home as well, will refer to CPP. 5. Obesity (SNOMED CT 732996349) - Making efforts with diet, on ozempic 6. Hyperlipidemia - labs are pending. 7. Chronic Low Back Pain - manages with non va opioid Health Care Maintenance: prevnar 20 and covid. Today I spent 40 minutes on some or all of the following: chart review, history, physical examination, treatment planning, education and counseling of the patient/family/health care liaison, placing orders, communicating with other health care [...] is following with his non va PCP. /daniela/ Juan Gomez DNP, JULIAN, KIARA Primary Care Nurse Practitioner Signed: 02/11/2024 10:28 [facility]Z [facility]
--- OUTSIDE RECORDS SUMMARY | 2024-06-29 12:29 | XMS_ITS ---
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 Insurance Providers: All historical and current [...] JESSE FAMIL Y Mar 07, 2000 [id number] [phone] JAY KRISHNA PATIENT ANTHEM BCBS FEDERAL PREFERRED PROVIDER ORGANIZAT ION (PPO) STAND JESSE FAMIL Y Mar 07, 2000 105 [id number] JAY KRISHNA PATIENT ANTHEM BCBS FEDERAL PREFERRED PROVIDER ORGANIZAT ION (PPO) STAND JESSE SELF Mar 07, 2000 105 [id number] JAY KRISHNA PATIENT BCBS [place] F[place] PREFERRED PROVIDER ORGANIZAT ION (PPO) PSHB STAND JESSE FAMIL Y Feb 24, 2024 [id number] JAY KRISHNA PATIENT [place] PREFERRED PROVIDER ORGANIZAT ION (PPO) PSHB STAND JESSE FAMIL Y Feb 24, [id number] [phone] JAY KRISHNA PATIENT [place] DENTAL DENTAL INSURANCE STAND JESSE Mar 07, 2000 DENTAL [id number] JAY KRISHNA PATIENT [place] FEDERAL PREFERRED PROVIDER ORGANIZAT ION (PPO) PSHB STAND JESSE FAMIL Y Feb 24, 2024 [id number] JAY KRISHNA PATIENT [place] FEP BCBS PRESCRIPT ION CAR[place] FEPRX PLAN Mar 07, 2000 [id number] JAY KRISHNA PATIENT [place] FEPRX PLAN PRESCRIPT ION [employer] FEPRX Feb 23, 2010 [id number] JAY KRISHNA PATIENT [place] FEPRX PLAN PRESCRIPT ION CAR[place] FEPRX Mar 07, 2000 [id number] [phone] JAY KRISHNA PATIENT [place]-F EP BCBS PRESCRIPT ION BCBS FEP Feb 23, 2010 [id number] JAY KRISHNA PATIENT MEDICARE ([facility]) MEDICARE () PART A May 25, 2011 PART A [id number] [facility] [phone] JAY KRISHNA PATIENT MEDICARE ([facility]) MEDICARE () PART A May 25, 2011 PART A [id number] [id number] [phone] JAY KRISHNA PATIENT MEDICARE ([facility]) MEDICARE () PART A May 25, 2011 PART A [id number] JAY KRISHNA PATIENT MEDICARE ([facility]) MEDICARE () PART A May 25, 2011 PART A [id number] JAY KRISHNA PATIENT MEDICARE ([facility]) MEDICARE () PART A May 25, 2011 PART A [id number] JAY KRISHNA PATIENT MEDICARE ([facility]) MEDICARE () PART A May 25, 2011 PART A [id number] [phone] JAY KRISHNA PATIENT MEDICARE (WNR) MEDICARE ([place]) PART A May 25, 2011 PART A [id number] [facility] JAY KRISHNA PATIENT MEDICARE (WNR) MEDICARE ([place]) PART A May 25, 2011 PART A [id number] [facility] JAY KRISHNA PATIENT Selected Encounter This section includes the information on record at [place] for the Encounter. 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 y SHERRYDAGOBERTO Linus [facility] [place] [facility] Apr 14, 2024 01:51 PM SECONDARY Complete traum amp at lev betw kn and ankl, r low leg, sqla DAGOBERTO POZO [facility] [place] [facility] Apr 14, 2024 01:51 PM SECONDARY Nail dystrophy [facility] Plan of Treatment: Future Appointments (+ 6 months) and Future Tests (+/- 45 days) The Plan of Treatment section includes future care activities for the patient from all [place] treatmentfacilities. This section includes future appointments and [...] 27, 2024 09:30 AM AMBULATORY - MEDICINE [place] C [facility] [place] [facility] Apr 27, 2024 10:00 AM AMBULATORY - MEDICINE [place] C [facility] [place] [facility] Apr 28, 2024 09:30 AM AMBULATORY - MEDICINE [place] C [facility] [place] [facility] May 03, 2024 08:00 AM AMBULATORY - MEDICINE [place] C [facility] [place] [facility] May 11, 2024 11:00 AM AMBULATORY - MEDICINE [place] C [facility] [place] [facility] May 24, 2024 11:00 AM AMBULATORY - PSYCHIATRY [place] [facility] [place] [facility] Jun 07, 2024 12:10 PM AMBULATORY - MEDICINE [place] C [facility] [place] [facility] Jun 13, 2024 02:00 PM AMBULATORY - MEDICINE [place] C [facility] [facility] June 23, 2024 10:30 AM AMBULATORY - MEDICINE [place] C [facility] [place] [facility] June 23, 2024 11:30 AM AMBULATORY - MEDICINE [place] C [facility] [facility] June 27, 2024 08:00 AM AMBULATORY - MEDICINE [place] C [facility] [place] [facility] July 19, 2024 09:00 AM AMBULATORY - MEDICINE [place] C [facility] [place] [facility] Aug 08, 2024 09:30 AM AMBULATORY - MEDICINE [place] C [facility] [place] [facility] Aug 09, 2024 11:00 AM AMBULATORY - MEDICINE [place] C [facility] [facility] Sep 01, 2024 11:00 AM AMBULATORY - MEDICINE [place] C [facility] [place] [facility] Active, Pending, and Scheduled Orders This [...] PATH ORDER SURG PATH SPEC. 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 The data comes from the [place] facility where the Encounter took place. Date/Time Smoking Status/Tobac co Use Comment Facility July 24, 2023 10:00 AM VA-TOBACCO QUIT 15 YRS OR MORE [place] [facility] [place] [facility] July 14, 2022 03:30 PM VA-TOBACCO FORMER USER NM [facility] [place] [facility] July 14, 2022 03:30 PM VA-TOBACCO QUIT 15 YRS OR MORE [place] [facility] [place] [facility] Aug 05, 2021 01:00 PM VA-TOBACCO FORMER USER [place] [facility] [place] [facility] Aug 05, 2021 01:00 PM VA-TOBACCO QUIT 5 TO < 15 YRS [place] [facility] [place] [facility] Sep 09, 2019 01:25 PM VA-TOBACCO FORMER USER [place] [facility] [place] [facility] Sep 09, 2019 01:25 PM VA-TOBACCO QUIT 5 TO < 15 YRS [place] [facility] [place] [facility] Dec 04, 2017 10:18 AM VA-TOBACCO FORMER USER [place] [facility] [place] [facility] Dec 04, 2017 10:18 AM VA-TOBACCO QUIT 5 TO < 15 YRS [place] [facility] [place] [facility] May 29, 2017 09:09 AM QUIT TOBACCO USE > 7 YEARS AGO NM [facility] [place] [facility] Apr 23, 2015 08:21 AM QUIT TOBACCO USE > 7 YEARS AGO [facility] [place] [facility] Apr 23, 2015 08:21 AM QUIT TOBACCO USE 1-7 YEARS AGO [facility] [place] [facility] Mar 06, 2011 11:06 AM QUIT TOBACCO USE 1-7 YEARS AGO [facility] [place] [facility] Apr 08, 2010 10:56 AM CURRENT SMOKER cigar once in a while [place] [facility] [place] [facility] Apr 08, 2010 10:56 AM V1-PT DECLINES REF TO TOBACCO CESS [facility] Apr 08, 2010 10:56 AM V1-PT DECLINES [facility]BACCO [facility]ESSATION [facility] Apr 08, 2010 10:56 AM V1-PT READY TO QUIT [facility]ACCO [facility] Feb 21, 2009 09:16 AM CURRENT SMOKER cigar once in a while [facility] Feb 21, 2009 09:16 AM V1-PT DECLINES REF TO TOBACCO CESS [facility] Feb 21, 2009 09:16 AM V1-PT DECLINES TOBACCO CESSATION MEDS [facility] Feb 21, 2009 09:16 AM V1-PT THINKING ABOUT QUIT TOBACCO USE [facility] Dec 16, 2007 09:15 AM QUIT TOBACCO USE 1-7 YEARS AGO [facility] Apr 01, 2007 11:08 AM QUIT TOBACCO USE 1-7 YEARS AGO [facility] Sep 28, 2006 08:52 AM QUIT TOBACCO USE IN PAST YEAR [facility] Apr 21, 2006 10:31 AM QUIT TOBACCO USE IN PAST YEAR August 2005 [facility] Dec 16, 2005 10:02 AM CURRENT SMOKER OCCASIONAL CIGAR [facility] May 19, 2001 03:50 PM CURRENT SMOKER see below [facility] Encounter Notes: All associated encounter notes This section contains the clinical notes associated to the Encounter. Date/Time Encounter Note(s) Provider Source Mar 22, 2024 08:46 AM PODIATRY NOTE: LOCAL TITLE: PODIATRY NOTE STANDARD TITLE: PODIATRY NOTE DATE OF NOTE: MAR 22, 2024@08:46 ENTRY DATE: MAR 22, 2024@08:46:33 AUTHOR: DAGOBERTO POZO COSIGNER: URGENCY: STATUS: COMPLETED PODIATRY NOTE Has ADDENDA Podiatry High Risk Foot Encounter [facility] provider: Dagoberto Pozo [facility] Date: Mar 22, 2024 JAY KRISHNA MALE [id number] Jan 63 [employer] FROM Sep TO Aug Primary Care:JUAN OBRIEN [...] Dependence * 10. Diabetes mellitus (SNOMED CT 65265117) 11. Atrial fibrillation (SNOMED CT 54285942) 12. Benign essential hypertension (SNOMED CT 0963942) 13. Family History of Ischemic Heart Disease 14. Obesity (SNOMED CT 765322379) 15. Hyperlipidemia 16. Chronic Low Back Pain [...] and temperature and patient is insensate to Strong Edward monofilament in the distal toes 1 [...] as results of the physical exam and quantitative consultant opinions and recommendations as sought. Alternatives [...] -The on this visit was given information [employer] service and encouraged to enroll if not already having done so. /daniela/ DAGOBERTO POZO DPM PODIATRY ATTENDING Signed: 03/22/2024 16:39 06/22/2024 ADDENDUM STATUS: COMPLETED [place] Podiatry Service Date of visit: June 22, 2024 Telephone encounter: Patient reached by telephone identified by full name date of and full Social Security number with permission requested and granted by patient for evaluation and management visit telephonically. Clinical problem: Patient called [facility] staff earlier today stating he had blood blister and is remaining foot big toe and wanted to come in for evaluation. Subjective: Patient denying any fevers chills nausea or vomiting. Blister present for a day or 2. Offered patient same-day appointment within an hour to 45 minutes and patient lives in [place]. Patient declined said he was going to be at the [place] tomorrow which will be 24 hours from now. He has an appointment at 1030 and agreed to be seen there after in our clinic as a walk-in or add on. Call summary: -Patient with high risk reporting blister on remaining foot, denying any systemic signs of infection -Offered same-day appointment patient declined opted to come tomorrow Patient advised to return to clinic or emergency room p.r.n. any signs of infection such as increased redness swelling fever chills or nausea increased drainage pain redness streaking of the lower leg, or flulike symptoms. Length of call: 3 minutes As part of the service the pertinent primary care, specialty care and urgent care notes have been reviewed as well as the patient's medication list problem list and current imaging as well as past imaging and laboratory data and other pertinent contributory consults. Plan for follow-up: /daniela/ DAGOBERTO POZO DPM PODIATRY ATTENDING Signed: 06/22/2024 12:44 DAGOBERTO POZO [facility]
--- OUTSIDE RECORDS SUMMARY | 2024-06-29 12:30 | XMS_ITS | Encounter Summary ---
Author Name [facility] Organization [facility] Address [address] [place] [address] Care Team Providers Care Technical Advisor Name Role Phone JOHNY GOMEZ Primary Care Provider [place] [...] JESSE FAMIL Y Mar 07, 2000 105 [id number] [phone] JAY KRISHNA PATIENT ANTHEM BCBS FEDERAL PREFERRED PROVIDER ORGANIZAT ION (PPO) STAND JESSE FAMIL Y Mar 07, 2000 105 [id number] JAY KRIHSNA PATIENT ANTHEM BCBS FEDERAL PREFERRED PROVIDER ORGANIZAT ION (PPO) STAND JESSE SELF Mar 07, 2000 105 [id number] JAY KRISHNA PATIENT BCBS [place] FEP PREFERRED PROVIDER ORGANIZAT ION (PPO) PSHB STAND JESSE FAMIL Y Feb 24, 2024 33E [id number] JAY KRISHNA PATIENT [place] PREFERRED PROVIDER ORGANIZAT ION (PPO) PSHB STAND JESSE FAMIL Y Feb 24, 2024 33E [id number] [phone] JAY KRISHNA PATIENT [place] F[place] DENTAL DENTAL INSURANCE STAND JESSE Mar 07, 2000 DENTAL [id number] [phone] JAY KRISHNA PATIENT [place] FEDERAL PREFERRED PROVIDER ORGANIZAT ION (PPO) PSHB STAND JESSE FAMIL Y Feb 24, 2024 33E [id number] [phone] JAY KRISHNA PATIENT [place] FEP BCBS PRESCRIPT ION [place] FEPRX PLAN Mar 07, 2000 [id number] JAY KRISHNA PATIENT [place] FEPRX PLAN PRESCRIPT ION [place] FEPRX Feb 23, 2010 [id number] JAY KRISHNA PATIENT [place] FEPRX PLAN PRESCRIPT ION [place] FEPRX Mar 07, 2000 [id number] [phone] JAY KRISHNA PATIENT [place]-F EP BCBS PRESCRIPT ION BCBS FEP Feb 23, 2010 [id number] [phone] JAY KRISHNA PATIENT MEDICARE ([facility]) MEDICARE () PART A May 25, 2011 PART A [id number] [facility] JAY KRISHNA PATIENT MEDICARE ([facility]) MEDICARE () PART A May 25, 2011 [id number] [id number] [phone] JAY KRISHNA PATIENT MEDICARE ([facility]) MEDICARE () PART A May 25, 2011 PART A [id number] JAY KRISHNA PATIENT MEDICARE ([facility]) MEDICARE () PART A May 25, 2011 PART A [id number] JAY KRISHNA PATIENT MEDICARE ([facility]) MEDICARE () PART A May 25, 2011 PART A [id number] [phone] JAY KRISHNA PATIENT MEDICARE ([facility]) MEDICARE () PART A May 25, 2011 PART A [id number] JAY KRISHNA PATIENT MEDICARE (WNR) MEDICARE (M) PART A May 25, 2011 PART A [id number] [facility] JAY KRISHNA PATIENT MEDICARE (WNR) MEDICARE (M) PART A May 25, 2011 PART A [id number] [facility] JAY KRISHNA PATIENT Selected Encounter This section includes the information on record at OR for the Encounter. Date/Time Encounter Type Encounter Description Reason Provider Source Aug 11, 2023 08:30 AM OFFICE O/P EST MOD 30 MIN PRIMARY CARE/MEDICINE ICD-10-CM I48.21 Permanent atrial fibrillation GOMEZ,WILL JAREN J [facility] Encounter Template Text not used by OR Assessments - Encounter Diagnoses This section includes the primary and secondary diagnoses documented for the Encounter. Date/Time Primary/Secondary Diagnosis Diagnosis Name Provider Source Sep 13, 2023 11:51 AM PRIMARY Permanent atrial fibrillation GOMEZ,WILL JAREN J [facility] Sep 13, 2023 11:51 AM SECONDARY Essential (primary) hypertension GOMEZ,WILL [facility]EN J [facility] Sep 13, 2023 11:51 AM SECONDARY Male erectile dysfunction, unspecified [facility] Sep 13, 2023 11:51 AM SECONDARY Other obesity GOMEZ,WILL JAREN J [facility] Sep 13, 2023 11:51 AM SECONDARY Type 2 diabetes mellitus without complications [facility] Sep 13, 2023 11:51 AM SECONDARY Unspecified atrial fibrillation GOMEZ,WILL JAREN J [facility] Plan of Treatment: Future Appointments (+ 6 months) and Future Tests (+/- 45 days) The Plan of Treatment section includes future care activities for the patient from all OR treatmentfacilities. This section includes future appointments and future orders which are active, pending or scheduled. Future Appointments This section includes appointments that were scheduled to occur 6 months from the date of the Encounter, up to a maximum of 20 appointments. The data comes from all OR treatment facilities. Appointment Date/Time Appointment Type Appointme nt Facility Name Sep 23, 2023 08:30 AM AMBULATORY - MEDICINE [place] [facility] [place] [facility] Oct 01, 2023 11:00 AM AMBULATORY - MEDICINE [place] [facility] [place] [facility] Dec 25, 2023 11:30 AM [facility] Lab Results: +/- 30 days of the encounter This section includes the Chemistry and Hematology Lab Results on record with OR for the patient. Radiology Reports and Pathology Reports are provided separately, in subsequent sections. Lab Results This section contains the Chemistry/Hematology Results that were resulted 30 days before or 30 daysafter the date of the Encounter. Date/Time Source Result Type Result - Unit Interpretation Reference Range Specimen Type Comment Aug 11, 2023 08:54 AM [facility] PSA SERUM Specimen Type: SERUM No comment entered. Ordering Provider: JOHNY GOMEZ Report Released Date/Time: Aug 11, 2023 08:42 AM Reporting Lab: [address] [address] Performing Lab: [facility] [address] PSA 3.60 ng/mL 0.00-4.00 Aug 11, 2023 08:54 AM [facility] LIPID PANEL, NON FASTING SERUM Specimen Type: SERUM No comment entered. Ordering Provider: JOHNY GOMEZ Report Released Date/Time: Aug 11, 2023 08:42 AM Reporting Lab: [address] [address] Performing Lab: [facility] [address] CHOLESTEROL 112 mg/dL TRIGLYCERIDE 127 mg/dL 0-150 LDL calculated 52 mg/dL 0-129 CHOL/HDL 3.2 HDL CHOLESTEROL 35 mg/dL L 40-60 Aug 11, 2023 08:54 AM [facility] LIVER FUNCTION SERUM Specimen Type: SERUM No comment entered. Ordering Provider: JOHNY GOMEZ Report Released Date/Time: Aug 11, 2023 08:42 AM Reporting Lab: [address] [address] Performing Lab: [facility] [address] [facility] [address] PROTEIN,TOTAL 7.1 g/dL 6.0-8.3 ALBUMIN 3.9 g/dL 3.5-5.0 ALKALINE PHOSPHATASE 66 U/L 40-150 AST 23 U/L 5-34 ALT 20 U/L BILIRUBIN, TOTAL 1.9 mg/dL H 0.2-1.2 BILIRUBIN, DIRECT 0.7 mg/dL H 0-0.5 Aug 11, 2023 08:54 AM [facility] PT & INR (PROTIME) PLASMA Specimen Type: PLASM A No comment entered. Ordering Provider: JOHNY GOMEZ Report Released Date/Time: Aug 11, 2023 08:42 AM Reporting Lab: [address] [address] Performing Lab: [address] [address] INR 2.1 PROTIME 23.2 s H 10.0-13.1 Aug 11, 2023 08:54 AM [facility] BASIC METABOLIC PANEL (non-fasting) SERUM Spe cimen Type: SERUM No comment entered. Ordering Provider: JOHNY GOMEZ Report Released Date/Time: Aug 11, 2023 08:42 AM Reporting Lab: [address] [address] Performing Lab: [address] [address] UREA NITROGEN 10 mg/dL 7-25 GLUCOSE 114 mg/dL H 65-100 SODIUM 137 mmol/L 135-145 POTASSIUM 4.0 mmol/L 3.5-5.0 CHLORIDE 106 mmol/L 100-110 CO2 22 meq/L 20-30 CREATININE, Serum 0.86 mg/dL 0.50-1.40 eGFR(CKD-EPI 2020) >90 mL/min >60 Aug 11, 2023 08:54 AM [facility] CBC BLOOD Specimen Type: BLOOD No comment entered. Ordering Provider: JOHNY GOMEZ Report Released Date/Time: Aug 11, 2023 08:42 AM Reporting Lab: [facility] [address] [facility] [address] Performing Lab: [facility] [address] [facility] [address] WBC 6.62 10*3/uL 4.50-11.00 RBC 4.77 10*6/uL 4.23-5.66 HGB 15.9 g/dL 12.8-17 HCT 45.1 39.2-50.4 MCV 94.5 fL 82-99 MCHC 35.3 g/dL H 30.8-35.1 PLT 229 10*3/uL 140-360 RDW-CV 12.9 12.0-16.0 MCH 33.3 pg H 26.2-32.6 Aug 11, 2023 08:54 AM [facility] MICROALBUMIN CREATININE RATIO PANEL URINE Spe cimen Type: URINE No comment entered. Ordering Provider: JOHNY GOMEZ Report Released Date/Time: Aug 11, 2023 08:42 AM Reporting Lab: [facility] [address] [facility] [address] Performing Lab: [address] [address] MICROALBUMIN/CREATININE RATIO 7.1 mg/g 0 -29.9 MICROALBUMIN,QUANTITATIVE 2.5 mg/dL RR U NAVAIL CREATININE URINE 349.96 mg/dL Aug 11, 2023 08:54 AM [facility] HEMOGLOBIN A1C PANEL BLOOD Specimen Type: BLO OD Comment: Values obtained from A1C measurements can vary. For atypical A1C assays, a reported value of 7.0 could actually be between 6.72 and 7.28 if measured by a reference method. A reported value of 9.0 could actually be between 8.73 and 9.27. Ref: http://www.ngsp.org/CAPdata.asp Ordering Provider: JOHNY GOMEZ Report Released Date/Time: Aug 11, 2023 08:42 AM Reporting Lab: [address] [address] Performing Lab: [facility] [address] [facility] [address] HEMOGLOBIN A1C 5.0 4.0-5.6 July 24, 2023 09:55 AM [facility] GLUCOSE, Fingerstick BLOOD Specimen Type: BLO OD Comment: For GLU FinTest performed by: Ary Arroyo For GLU Fin Meter #: [id number] Ordering Provider: JOHNY GOMEZ Report Released Date/Time: July 24, 2023 10:10 AM Reporting Lab: [facility] [address] [facility] [address] Performing Lab: [address] [address] GLUCOSE, Fingerstick 112 mg/dL H 65-100 Vital Signs: All taken on the encounter date This section contains inpatient and outpatient Vital Signs collected on the date of the Encounter. Date/Time Temperature Pulse Blood Pressure Respiratory Rate SP02 Pain Height Weight Body Mass Index Source Aug 11, 2023 08:22 AM 98.3 100 133/89 20 99 5 75 331 41 [facility] Social History: Smoking Status (Most current) and Tobacco Use (All prior to encounter date) This section includes the most current, and the historical, smoking and tobacco- related health factors from the OR facility where the Encounter took place. Current Smoking Status This section includes the most current smoking, or tobacco-related health factor, from the OR facility where the Encounter took place. Date/Time Current Smoking Status Comment [facility] July 24, 2023 10:00 AM VA-TOBACCO FORMER USER [facility] Tobacco Use History This section includes a history of the smoking, or tobacco-related health factors, that were collected on or before the date of the Encounter. The data comes from the OR facility where the Encounter took place. Date/Time Smoking Status/Tobac co Use Comment Facility July 24, 2023 10:00 AM OR-TOBACCO QUIT 15 YRS OR MORE [facility] July 14, 2022 03:30 PM VA-TOBACCO FORMER USER [facility] July 14, 2022 03:30 PM VA-TOBACCO QUIT 15 YRS OR MORE [facility] Aug 05, 2021 01:00 PM VA-TOBACCO FORMER USER [facility] [place] [facility] Aug 05, 2021 01:00 PM VA-TOBACCO QUIT 5 TO < 15 YRS [facility] [place] [facility] Sep 09, 2019 01:25 PM VA-TOBACCO FORMER USER [facility] [place] [facility] Sep 09, 2019 01:25 PM VA-TOBACCO QUIT 5 TO < 15 YRS [facility] [place] [facility] Dec 04, 2017 10:18 AM VA-TOBACCO FORMER USER [facility] [place] [facility] Dec 04, 2017 10:18 AM VA-TOBACCO QUIT 5 TO < 15 YRS [facility] [place] [facility] May 29, 2017 09:09 AM QUIT TOBACCO USE > 7 YEARS AGO [facility] [place] [facility] Apr 23, 2015 08:21 AM QUIT TOBACCO USE > 7 YEARS AGO [facility] [place] [facility] Apr 23, 2015 08:21 AM QUIT TOBACCO USE 1-7 YEARS AGO [facility] [place] [facility] Mar 06, 2011 11:06 AM QUIT TOBACCO USE 1-7 YEARS AGO [facility] [place] [facility] Apr 08, 2010 10:56 AM CURRENT SMOKER cigar once in a while [facility] [place] [facility] Apr 08, 2010 10:56 AM V1-PT [facility] [place] [facility] Apr 08, 2010 10:56 AM V1-PT DECLINES TOBACCO CESSATION MEDS [facility] [place] [facility] Apr 08, 2010 10:56 AM V1-PT READY TO QUIT TOBACCO USE [facility] [place] [facility] Feb 21, 2009 09:16 AM CURRENT SMOKER cigar once in a while [facility] [place] [facility] Feb 21, 2009 09:16 AM V1-PT DECLINES REF TO TOBACCO CESS PRGM [facility] [place] [facility] Feb 21, 2009 09:16 AM V1-PT DECLINES TOBACCO CESSATION MEDS [facility] [place] [facility] Feb 21, 2009 09:16 AM V1-PT THINKING ABOUT QUIT TOBACCO USE [facility] [place] [facility] Dec 16, 2007 09:15 AM QUIT TOBACCO USE 1-7 YEARS AGO [facility] Apr 01, 2007 11:08 AM QUIT TOBACCO USE 1-7 YEARS AGO [facility] Sep 28, 2006 08:52 AM QUIT TOBACCO USE IN PAST YEAR [facility] Apr 21, 2006 10:31 AM QUIT TOBACCO USE IN PAST YEAR August 2005 [facility] Dec 16, 2005 10:02 AM CURRENT SMOKER OCCASIONAL CIGAR [facility] May 19, 2001 03:50 PM CURRENT SMOKER see below [facility] Encounter Notes: All associated encounter notes [...] 08:22)BMI: 41.5331 lb [150.14 kg] (08/11/2023 08:22) is alert and oriented X3 Cardiovasc: 2plus [...] sildenafil helpful 3. Diabetes mellitus (SNOMED CT 69467067) - labs today, wt loss noted since starting ozempic, managed non va 4. Benign essential hypertension (SNOMED CT 9795861) - repeat 134/82 5. Chronic Low Back [...] diminished) SENSORY CHECK: Includes 10 gram Monofilament ([place]) test of sensation. Intact (Greater than or [...] of active outpatient prescriptions dispensed from this OR (local) and dispensed from another OR or DoD facility (remote) as well as [...] with a VA or non-VA provider. /daniela/ Johny Gomez DNP, [employer], CNL Primary Care Nurse Practitioner Signed: 08/11/2023 08:54 JOHNY GOMEZ [facility]
--- OUTSIDE RECORDS SUMMARY | 2024-06-29 12:30 | XMS_ITS | Continuity of Care Document ---
Author Name [facility] Organization [facility] Care Team Providers Care Hose Stripper Name Role Phone [facility] Unavailable Unavailable Problems Combined list of problems from Department of Defense and Veterans Affairs facilities. It does not include entries that were removed or entered in error. Problem Status Onset Date Problem Type Date of Resolution Comments Source Atrial fibrillation Active Condition [facility] Atrial fibrillation (SNOMED CT 46148232) Active Condition [facility] Benign essential hypertension (SNOMED CT 5352019) Active Condition [facility] Chronic Low Back Pain (ICD-9-CM 724.2) Active Condition [facility] Diabetes mellitus (SNOMED CT 42465284) Active Condition [facility] Diabetic foot ulcer Active Condition [facility] Family History of Ischemic Heart Disease (ICD-9-CM V17.3) Active Condition [facility] History of amputation of leg above ankle Active Condition May 29, 2017 Entered By: JASPAL WHEATLEY Comment: 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 [facility] [place] [facility] History of cholecystectomy Active Condition Dec 08, 2015 Entered By: JASPAL WHEATLEY Comment: 2015 [facility] Hyperlipidemia Active Condition June 232009 Entered By: SHERRILL MYERS Comment: and metabolic syndrome [facility] Long-term current use of anticoagulant Active Condition [facility] ([facility] Obesity (SNOMED CT 662953896) Active Condition [facility] [...] Active Condition [facility] Seizure Active Condition [facility] status post knee replacement Active Condition Oct 13, 2012 Entered By: SHERRILL MYERS Comment: R TKR fall 2011 [facility] Diagnosis: ICD-10-CM E11.621 Type 2 diabetes mellitus with foot ulcer Active Diagnosis [facility] Diagnosis: ICD-10-CM I10 Essential (primary) hypertension Active Diagnosis [facility] Diagnosis: ICD-10-CM R56.9 Unspecified convulsions Active Diagnosis [facility] (6[facility]GE) Diagnosis: ICD-10-CM F41.9 Anxiety disorder, unspecified Active Diagnosis [facility] Diagnosis: ICD-10-CM Z46.0 Encounter for fit/adjst of spectacles and contact lenses Active Diagnosis [facility] Diagnosis: ICD-10-CM E11.9 Type 2 diabetes mellitus without complications Active Diagnosis [facility] Diagnosis: ICD-10-CM L57.0 Actinic keratosis Active Diagnosis [facility] Diagnosis: ICD-10-CM 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 Active Diagnosis [facility] Diagnosis: ICD-10-CM Z04.89 Encounter for examination and observation for oth reasons Active Diagnosis [facility] Diagnosis: ICD-10-CM K63.5 Polyp of colon Active Diagnosis [facility] [place] [facility] Diagnosis: ICD-10-CM E11.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 2 diabetes mellitus with diabetic polyneuropathy Active Diagnosis [facility] Diagnosis: ICD-10-CM L91.8 Other hypertrophic disorders of the skin [facility] [place] [facility] Diagnosis: ICD-10-CM S88.112S Complete traum amp at lev betw kn and ankl, l low leg, sqla Active [facility] [place] [facility] Diagnosis: ICD-10-CM I48.21 Permanent atrial fibrillation Active Diagnosis [facility] [place] [facility] Diagnosis: ICD-10-CM R11.0 Nausea [facility] [place] [facility] Medications Combined list of outpatient medications from Department of Defense and Veterans Affairs facilities.Medications provided include 1) outpatient medications from the last 15 months, and 2) patient-reported medications. Medication Details Route Status Patient Instructions Prescription Expires Prescription Number Last Dispense Date Ordering Provider Order Date Order Qty Source CARBOXYMETH YLCELLULOSE NA 0.5% SOLN,OPH INSTILL 1 DROP INTO EACH EYE FOUR TIMES A DAY FOR DRY EYE OPHTHA LMIC DISCONT INUED BY PROVIDE R 04/22/2024 [id number] MERCED LUNA 2023 45 [facility] CHLORTHALID ONE 25MG TAB TAKE ONE TABLET BY MOUTH ONCE DAILY TO REMOVE FLUID/CO NTROL BLOOD PRESSURE ORAL DISCONT INUED BY PROVIDE R 03/17/2025 [id number] ROBYN SNYDER 2024 90 [facility] CLOBETASOL PROPIONATE 0.05% CREAM,TOP APPLY A THIN LAYER TOPICALL Y TWICE DAILY FOR ITCHING/ RASH APPLY TO AFFECTED AREAS FOR 2 WEEKS, THEN NEEDED TOPICA L DISCONT INUED BY PROVIDE R 10/01/2024 [id number] 4 CLARK ZUNIGA 2023 60 [facility] CLOPIDOGREL BISULFATE 75MG TAB TAKE ONE TABLET BY MOUTH ONCE DAILY ORAL ACTIVE ROBYN SNYDER I A 2024 [facility] CLOTRIMAZOL E 1% SOLN,TOP APPLY 1 DROP TOPICALL Y ONCE DAILY FOR FUNGAL INFECTIO N APPLY TO NAILS WHEN DRY TOPICA L DISCONT INUED BY PROVIDE R 09/23/2024 [id number] RAYMOND POWELL 2023 30 [facility] FINASTERIDE 5MG TAB TAKE ONE TABLET BY MOUTH ONCE DAILY ORAL ACTIVE JUAN OBRIEN 2024 [facility] FLUOXETINE HCL 20MG CAP TAKE 1 CAPSULE BY MOUTH ONCE DAILY ORAL ACTIVE GDULA,ROBYN I A 2024 [facility] [place] GABAPENTIN 300MG CAP TAKE 1 CAPSULE BY MOUTH BEDTIME ORAL ACTIVE GDULA,ROBYN I A 2024 [facility] [facility] HYDROCHLORO THIAZIDE 25MG TAB TAKE ONE TABLET BY MOUTH EVERY DAY TO PREVENT FLUID/CO NTROL BLOOD PRESSURE ORAL DISCONT INUED BY PROVIDE R 08/11/2024 [id number] JUAN OBRIEN 2023 90 [facility] HYDROCHLORO THIAZIDE 25MG TAB TAKE ONE TABLET BY MOUTH EVERY DAY TO PREVENT FLUID/CO NTROL BLOOD PRESSURE ORAL DISCONT INUED 07/15/2023 [id number] 4 JUNA OBRIEN 2022 90 [facility] [place] [facility] LEVETIRACET AM 500MG TAB TAKE ONE TABLET BY MOUTH TWICE DAILY FOR PARTIAL SEIZURES ORAL ACTIVE 08/10/2024 [id number] 5 JUAN OBRIEN 2024 240 [facility] [place] LORAZEPAM 0.5MG TAB TAKE ONE TABLET BY MOUTH ONE TIME FOR ANXIETY TAKE 30 MINUTES PRIOR TO MRI ORAL 06/11/2024 [id number] 5 JUAN OBRIEN 2024 1 [facility] [place] [facility] METOPROLOL SUCCINATE 200MG TAB,SA TAKE ONE TABLET BY MOUTH ONCE DAILY ORAL ACTIVE ROBYN SNYDER 2024 [facility] [place] METOPROLOL SUCCINATE 50MG TAB,SA TAKE THREE TABLETS BY MOUTH ONCE DAILY FOR BLOOD PRESSURE /HEART ORAL DISCONT INUED BY PROVIDE R 08/11/2024 [id number] JUAN OBRIEN 2023 270 [facility] METRONIDAZO LE 0.75% GEL,TOP APPLY SMALL AMOUNT TOPICALL Y TWICE DAILY FOR ACNE ROSACEA TOPICA L ACTIVE 04/28/2025 [id number] 5 CLARK ZUNIGA 2024 90 [facility] METRONIDAZO LE 0.75% GEL,TOP APPLY SMALL AMOUNT TOPICALL Y TWICE DAILY FOR ACNE ROSACEA TOPICA L DISCONT INUED 04/02/2024 [id number] 4 CLARK ZUNIGA 2023 90 [facility] MICONAZOLE NITRATE 2% PWDR,TOP APPLY SMALL AMOUNT TOPICALL Y TWICE DAILY NEEDED FOR FUNGAL INFECTIO N OF SKIN TOPICA L DISCONT INUED BY PROVIDE R 04/28/2025 [id number] 5 CLARK ZUNIGA 2024 85 [facility] MOISTURIZIN G (EQV-LUBRID ERM) UNSCENTED LOTION,TOP APPLY LIBERAL AMOUNT TOPICALL Y DIRECTED DRY SKIN TOPICA L ACTIVE 04/28/2025 [id number] 5 CLARK ZUNIGA 2024 473 [facility] OMEPRAZOLE 20MG CAP,EC TAKE ONE CAPSULE BY MOUTH TWICE DAILY BEFORE A MEAL FOR GASTROES OPHAGEAL REFLUX DISEASE ORAL DISCONT INUED BY PROVIDE R 08/11/2024 [id number] 4 JUAN OBRIEN 2023 180 [facility] OMEPRAZOLE 20MG CAP,EC TAKE ONE CAPSULE BY MOUTH EVERY MORNING 30 MINUTES BEFORE BREAKFAS T FOR GASTROES OPHAGEAL REFLUX DISEASE ORAL DISCONT INUED (EDIT) 04/02/2024 [id number] 4 JUAN OBRIEN 2023 90 [facility] [place] [facility] OMEPRAZOLE 20MG CAP,EC TAKE ONE CAPSULE BY MOUTH EVERY MORNING 30 MINUTES BEFORE BREAKFAS T FOR GASTROES OPHAGEAL REFLUX DISEASE ORAL DISCONT INUED 06/13/2023 [id number] JUAN JON 2022 90 [facility] OMEPRAZOLE 20MG CAP,EC TAKE 1 CAPSULE BY MOUTH TWICE DAILY BEFORE A MEAL ORAL ACTIVE JUAN OBRIEN 2024 [facility] OXYCODONE HCL 5MG TAB TAKE ONE TABLET BY MOUTH EVERY 8 HOURS NEEDED ORAL ACTIVE ROBYN SNYDER 2024 [facility] PANTOPRAZOL E NA 40MG TAB,EC TAKE ONE TABLET BY MOUTH TWICE DAILY BEFORE A MEAL FOR EXCESSIV E PRODUCTI ON OF STOMACH ACID ORAL DISCONT INUED BY PROVIDE R 02/11/2025 [id number] JUAN OBRIEN 2023 180 [facility] RIVAROXABAN 20MG TAB TAKE ONE TABLET BY MOUTH EVERY EVENING WITH FOOD ORAL DISCONT INUED BY PROVIDE R 08/11/2024 [id number] 4 JUAN OBRIEN 2023 90 [facility] RIVAROXABAN 20MG TAB TAKE ONE TABLET BY MOUTH EVERY EVENING WITH FOOD ORAL DISCONT INUED 2024 [id number] JUAN OBRIEN 2022 90 [facility] SEMAGLUTIDE 2MG/0.75ML INJ,SOLN,PE N,3ML INJECT 2MG SUBCUTAN EOUSLY ONCE A WEEK SUBCUT ANEOUS ACTIVE ROBYN SNYDER 2024 [facility] SILDENAFIL CITRATE 100MG TAB TAKE ONE TABLET BY MOUTH ONCE DAILY TAKE 1 HOUR PRIOR TO SEXUAL ACTIVITY ORAL DISCONT INUED BY PROVIDE R 08/11/2024 [id number] JUAN OBRIEN 2023 18 [facility] SILDENAFIL CITRATE 100MG TAB TAKE ONE TABLET BY MOUTH ONCE DAILY TAKE 1 HOUR PRIOR TO SEXUAL ACTIVITY ORAL DISCONT INUED (EDIT) 04/02/2024 [id number] 4 JUAN OBRIEN 2023 6 [facility] SIMVASTATIN 80MG TAB TAKE ONE-HALF TABLET BY MOUTH EVERY EVENING FOR CHOLESTE ROL ORAL DISCONT INUED BY PROVIDE R 04/23/2025 [id number] 5 JUAN OBRIEN 2024 45 [facility] SIMVASTATIN 80MG TAB TAKE ONE-HALF TABLET BY MOUTH EVERY EVENING FOR CHOLESTE ROL ORAL DISCONT INUED 04/02/2024 [id number] 4 JUAN OBRIEN 2023 45 [facility] SIMVASTATIN 80MG TAB TAKE ONE-HALF TABLET BY MOUTH EVERY EVENING FOR CHOLESTE ROL ORAL DISCONT INUED 06/13/2023 [id number] 4 JUAN JON 2022 45 [facility] SIMVASTATIN 80MG TAB TAKE ONE-HALF TABLET BY MOUTH ONCE DAILY ORAL ACTIVE JUAN OBRIEN 2024 [facility] TAMSULOSIN HCL 0.4MG CAP TAKE 1 CAPSULE BY MOUTH ONCE DAILY ORAL ACTIVE JUAN OBRIEN 2024 [facility] TERBINAFINE HCL 1% CREAM,TOP APPLY A THIN LAYER TOPICALL Y TWICE DAILY FOR RINGWORM OF THE BODY APPLY TO RIGHT LEG UP TO 1-4 WEEKS UNTIL RASH RESOLVES TOPICA L DISCONT INUED BY PROVIDE R 04/28/2025 [id number] 5 CLARK ZUNIGA 2024 90 [facility] VALSARTAN 160MG TAB TAKE ONE TABLET BY MOUTH ONCE DAILY FOR HIGH BLOOD PRESSURE ORAL DISCONT INUED BY PROVIDE R 02/11/2025 [id number] 5 JUAN OBRIEN 2024 90 [facility] VALSARTAN 160MG TAB TAKE ONE TABLET BY MOUTH ONCE DAILY ORAL ACTIVE OBRIENJUAN GONZALEZ 2024 [facility] Allergies, Adverse Reactions, Alerts Combined list of allergies from Department of Community Hospital and Veterans Affairs facilities. It does not include entries that were removed or entered in error. Substance Category Reaction Severity Reaction type Status Date Reported Comments Source AMITRIPTYLIN E Propensity to adverse reactions to drug (finding) Xerostomia active 9 [facility] AMITRIPTYLIN E Propensity to adverse reactions to drug (finding) active 2 [facility] ERYTHRITOL Propensity to adverse reactions to substance (finding) active 2 [facility] ERYTHROMYCIN Propensity to adverse reactions to drug (finding) active 6 [facility] GABAPENTIN Propensity to adverse reactions to drug (finding) Drowsy active 9 [facility] GABAPENTIN Propensity to adverse reactions to drug (finding) active 2 [facility] Immunizations Combined list of available immunizations from the Department of Community Hospital and Veterans Affairs facilities. Immunization Series Date Given Administered By Site Reaction Lot Number CVX Code Drug Toe Lining Closer Status Comments Source COVID-19 (MODERNA), MRNA, LNP-S, PF, 50 MCG/0.5 ML (AGES 12+ YEARS) 2023 SHOAIB NETTLESA LEFT DELTO ID [id number] 312 complet ed Booster for Series, ADMINISTE RED AT [facility] PNEUMOCOCCAL CONJUGATE PCV20, POLYSACCHARID E [id number] CONJUGATE, ADJUVANT, PF 2023 SHOAIB NETTLES NIKKI RIGHT DELTO ID [id number] 216 complet ed ADMINISTE [facility] AT [facility] INFLUENZA, UNSPECIFIED FORMULATION 2023 88 complet ed HISTORICA L INFORMATI ON - FROM OTHER PROVIDER, [facility] TDAP 2022 SHOAIB NETTLES LEFT DELTO ID [id number] 115 complet ed Booster for Series, [facility], [facility] INFLUENZA, UNSPECIFIED FORMULATION 2021 88 complet ed HISTORICA L INFORMATI ON - FROM OTHER PROVIDER, [facility] HEP B, ADULT 3 2020 43 complet ed [facility] COVID-19 (NodePrime), MRNA, LNP-S, PF, 30 MCG/0.3 ML DOSE 2 2020 208 complet ed PFR; [id number]; 1 [facility] COVID-19 (NodePrime), MRNA, LNP-S, PF, 30 MCG/0.3 ML DOSE 1 2020 208 complet ed PFR; [id number]; 1 [facility] [...] Reference Range Date Interpretation Specimen Comments Source BASIC METABOLIC PANEL (non-fast ing) UREA NITROGEN [MASS/VOLUM E] IN SERUM OR PLASMA 12 mg/dL 7 - 25 05/11 Specimen Type: SERUM No comment entered. Ordering Provider: ALEJANDRA SNYDER Report Released Date/Time: Mar 16, 2024 10:45 AM Reporting Lab: [facility] [place] [facility] [address] [facility] [address] Performing Lab: [facility] [place] [facility] [address] [facility] [address] [facility] BASIC METABOLIC PANEL (non-fast ing) GLUCOSE [MASS/VOLUM E] IN SERUM OR PLASMA 96 mg/dL 65 - 100 05/11 Specimen Type: SERUM No comment entered. Ordering Provider: ALEJANDRA SNYDER Report Released Date/Time: Mar 16, 2024 10:45 AM Reporting Lab: [facility] [place] [facility] [address] [facility] [address] Performing Lab: [facility] [place] [facility] [address] [facility] [address] [facility] [place] [facility] BASIC METABOLIC PANEL (non-fast ing) SODIUM [MOLES/VOLU ME] IN SERUM OR PLASMA 138 mmol/L 135 - 145 05/11 Specimen Type: SERUM No comment entered. Ordering Provider: ALEJANDRA SNYDER Report Released Date/Time: Mar 16, 2024 10:45 AM Reporting Lab: [facility] [address] [facility] [facility] [address] Performing Lab: [facility]ITALUSE[facility] [address] [facility] [facility] [address] [facility]ANRLAMAR REGIONAL HOSPITALTRN [facility]OSPITALUSE [facility] BASIC METABOLIC PANEL (non-fast ing) POTASSIUM [MOLES/VOLU ME] IN SERUM OR PLASMA 4.0 mmol/L 3.5 - 5.0 05/11 Specimen Type: SERUM No comment entered. Ordering Provider: ALEJANDRA SNYDER Report Released Date/Time: Mar 16, 2024 10:45 AM Reporting Lab: [facility] TRN [facility]ITALUSEST[facility] [address] [facility] [address] Performing Lab: [facility]PITALUSESTON[facility] [address] [facility] [address] [facility]ALUPE COUNTY HOSPITALN [facility] HOSPITALUSE [facility] BASIC METABOLIC PANEL (non-fast ing) CHLORIDE [MOLES/VOLU ME] IN SERUM OR PLASMA 106 mmol/L 100 - 110 05/11 Specimen Type: SERUM No comment entered. Ordering Provider: ALEJANDRA SNYDER Report Released Date/Time: Mar 16, 2024 10:45 AM Reporting Lab: [facility] [place] [facility] [address] [facility] [address] Performing Lab: [facility]OSPITALUSETS [facility] [address] [facility] [facility] [address] [facility]ANRLAMAR REGIONAL HOSPITALTRN [facility] HOSPITALUSE [facility] BASIC METABOLIC PANEL (non-fast ing) CARBON DIOXIDE, TOTAL [MOLES/VOLU ME] IN SERUM OR PLASMA 22 meq/L 20 - 30 05/11 Specimen Type: SERUM No comment entered. Ordering Provider: ALEJANDRA SNYDER Report Released Date/Time: Mar 16, 2024 10:45 AM Reporting Lab: [facility] HOSPITALUSETS [facility] [address] [facility] [facility] [address] Performing Lab: [facility]OSPITALUSESTONY [facility] [address] [facility] [facility] [address] [facility] GUADALUPE COUNTY HOSPITALN THE [facility] HOSPITALUSE [facility] BASIC METABOLIC PANEL (non-fast ing) CALCIUM [MASS/VOLUM E] IN SERUM OR PLASMA 9.4 mg/dL 8.5 - 10.2 05/11 Specimen Type: SERUM No comment entered. Ordering Provider: ALEJANDRA SNYDER Report Released Date/Time: Mar 16, 2024 10:45 AM Reporting Lab: [facility]OSPITALUSE[address] [address] Performing Lab: [facility] TRN [address] [address] [facility]ANRCROSSBRIDGE BEH[facility]ALTHN [facility] BASIC METABOLIC PANEL (non-fast ing) CREATININE [MASS/VOLUM E] IN SERUM OR PLASMA 0.69 mg/dL 0.50 - 1.40 05/11 Specimen Type: SERUM No comment entered. Ordering Provider: ALEJANDRA SNYDER Report Released Date/Time: Mar 16, 2024 10:45 AM Reporting Lab: [facility] TRN [facility]PITALUSE[address] [address] Performing Lab: [facility]ITALUSE[address] [address] [facility] TRN [facility] HOSPITALUSE [facility] BASIC METABOLIC PANEL (non-fast ing) GLOMERULAR FILTRATION RATE/1.73 SQ M.PREDICTED [VOLUME RATE/AREA] IN SERUM, PLASMA OR BLOOD BY CREATININE- BASED FORMULA (CKD-EPI 2020) >90mL/ min 60 05/11 Specimen Type: SERUM No comment entered. Ordering Provider: ALEJANDRA SNYDER Report Released Date/Time: Mar 16, 2024 10:45 AM Reporting Lab: [facility]PITALUSE[address] [address] Performing Lab: [facility] [address] [facility] [address] [facility]N [facility] BASIC METABOLIC PANEL (non-fast ing) UREA NITROGEN [MASS/VOLUM E] IN SERUM OR PLASMA 13 mg/dL 7 - 25 05/11 Specimen Type: SERUM No comment entered. Ordering Provider: MAGED OBRIEN Report Released Date/Time: May 11, 2024 11:48 AM Reporting Lab: [facility]ITALN [facility] [address] [facility] [facility] [address] Performing Lab: [facility] HOS[facility]ITALN [facility] [address] [facility] [facility] [address] [facility] BASIC METABOLIC PANEL (non-fast ing) GLUCOSE [MASS/VOLUM E] IN SERUM OR PLASMA 96 mg/dL 65 - 100 05/11 Specimen Type: SERUM No comment entered. Ordering Provider: MAGED OBRIEN Report Released Date/Time: May 11, 2024 11:48 AM Reporting Lab: [facility]OS[facility]ITALN [facility] [address] [facility] [address] Performing Lab: [facility] HOSPITALN [address] [address] [facility] BASIC METABOLIC PANEL (non-fast ing) SODIUM [MOLES/VOLU ME] IN SERUM OR PLASMA 138 mmol/L 135 - 145 05/11 Specimen Type: SERUM No comment entered. Ordering Provider: MAGED OBRIEN Report Released Date/Time: May 11, 2024 11:48 AM Reporting Lab: [facility]ANRCROSSBRIDGE BEHAVIORAL HEALTHN [facility] [address] [facility] [address] Performing Lab: [facility]OS[facility]ITALN [facility]OSPITALUSESTON[facility] [address] [facility] [address] [facility] BASIC METABOLIC PANEL (non-fast ing) POTASSIUM [MOLES/VOLU ME] IN SERUM OR PLASMA 4.0 mmol/L 3.5 - 5.0 05/11 Specimen Type: SERUM No comment entered. Ordering Provider: MAGED OBRIEN Report Released Date/Time: May 11, 2024 11:48 AM Reporting Lab: [facility] [place] [facility] [address] [facility] [address] Performing Lab: [facility] W[facility]N [facility] HOSPITALUSETS [facility] [address] [facility] [address] [facility] HOSPITALUSE [facility] BASIC METABOLIC PANEL (non-fast ing) CHLORIDE [MOLES/VOLU ME] IN SERUM OR PLASMA 106 mmol/L 100 - 110 05/11 Specimen Type: SERUM No comment entered. Ordering Provider: MAGED OBRIEN Report Released Date/Time: May 11, 2024 11:48 AM Reporting Lab: [facility]PITALUSESTON[facility] [address] [facility] [address] Performing Lab: [facility]ITALUSE[address] [address] [facility]ANRLAMAR REGIONAL HOSPITALTRN [facility] HOSPITALUSE [facility] BASIC METABOLIC PANEL (non-fast ing) CARBON DIOXIDE, TOTAL [MOLES/VOLU ME] IN SERUM OR PLASMA 23 meq/L 20 - 30 05/11 Specimen Type: SERUM No comment entered. Ordering Provider: MAGED OBRIEN Report Released Date/Time: May 11, 2024 11:48 AM Reporting Lab: [facility] TRN [facility]OSPITALUSESTON[facility] [address] [facility] [address] Performing Lab: [facility] W[facility]OSPITALUSE[address] [address] [facility] TRN [facility] HOSPITALUSE [facility] BASIC METABOLIC PANEL (non-fast ing) CALCIUM [MASS/VOLUM E] IN SERUM OR PLASMA 9.4 mg/dL 8.5 - 10.2 05/11 Specimen Type: SERUM No comment entered. Ordering Provider: MAGED OBRIEN Report Released Date/Time: May 11, 2024 11:48 AM Reporting Lab: [facility] [place] [facility] [address] [facility] [facility] [address] Performing Lab: [facility] [address] [facility] BASIC METABOLIC PANEL (non-fast ing) CREATININE [MASS/VOLUM E] IN SERUM OR PLASMA 0.69 mg/dL 0.50 - 1.40 05/11 Specimen Type: SERUM No comment entered. Ordering Provider: MAGED OBRIEN Report Released Date/Time: May 11, 2024 11:48 AM Reporting Lab: [facility] [place] [place] [address] [address] Performing Lab: [facility] [place] [address] [address] [facility] [place] [facility] BASIC METABOLIC PANEL (non-fast ing) GLOMERULAR FILTRATION RATE/1.73 SQ M.PREDICTED [VOLUME RATE/AREA] IN SERUM, PLASMA OR BLOOD BY CREATININE- BASED FORMULA (CKD-EPI 2020) >90mL/ min 60 05/11 Specimen Type: SERUM No comment entered. Ordering Provider: MAGED OBRIEN Report Released Date/Time: May 11, 2024 11:48 AM Reporting Lab: [facility] [place] [address] [address] Performing Lab: [facility] [place] [address] [address] [facility] [facility] CBC LEUKOCYTES [#/VOLUME] IN BLOOD BY AUTOMATED COUNT 8.04 10*3/u L 4.50 - 11.00 05/11 Specimen Type: BLOOD No comment entered. Ordering Provider: MAGED OBRIEN Report Released Date/Time: May 11, 2024 11:48 AM Reporting Lab: [facility] [place] [address] [address] Performing Lab: [facility] [place] [address] [address] [facility] [place] [facility] CBC ERYTHROCYTE S [#/VOLUME] IN BLOOD BY AUTOMATED COUNT 4.60 10*6/u L 4.23 - 5.66 05/11 Specimen Type: BLOOD No comment entered. Ordering Provider: MAGED OBRIEN Report Released Date/Time: May 11, 2024 11:48 AM Reporting Lab: [facility] [place] [facility] [address] [facility] [address] Performing Lab: [facility] [place] [facility] [address] [facility] [address] [facility] [place] [facility] CBC HEMOGLOBIN [MASS/VOLUM E] IN BLOOD 13.9 g/dL 12.8 - 17 05/11 Specimen Type: BLOOD No comment entered. Ordering Provider: MAGED OBRIEN Report Released Date/Time: May 11, 2024 11:48 AM Reporting Lab: [facility] [place] [facility] [address] [facility] [address] Performing Lab: [facility] [place] [facility] [address] [facility] [address] [facility] [place] [facility] CBC HEMATOCRIT [VOLUME FRACTION] OF BLOOD BY AUTOMATED COUNT 40.8 39.2 - 50.4 05/11 Specimen Type: BLOOD No comment entered. Ordering Provider: MAGED OBRIEN Report Released Date/Time: May 11, 2024 11:48 AM Reporting Lab: [facility] [place] [facility] [address] [facility] [address] Performing Lab: [facility] [place] [facility] [address] [facility] [address] [facility] [place] [facility] CBC MCV [ENTITIC VOLUME] BY AUTOMATED COUNT 88.7 fL 82 - 99 05/11 Specimen Type: BLOOD No comment entered. Ordering Provider: MAGED OBRIEN Report Released Date/Time: May 11, 2024 11:48 AM Reporting Lab: [facility] [place] [facility] [address] [facility] [address] Performing Lab: [facility] [place] [facility] [address] [facility] [address] [facility] [place] [facility] CBC MCHC [MASS/VOLUM E] BY AUTOMATED COUNT 34.1 g/dL 30.8 - 35.1 05/11 Specimen Type: BLOOD No comment entered. Ordering Provider: MAGED OBRIEN Report Released Date/Time: May 11, 2024 11:48 AM Reporting Lab: [facility] [place] [facility] [address] [facility] [address] Performing Lab: [facility] [place] [facility] [address] [facility] [address] [facility] [place] [facility] CBC PLATELETS [#/VOLUME] IN BLOOD BY AUTOMATED COUNT 295 10*3/u L 140 - 360 05/11 Specimen Type: BLOOD No comment entered. Ordering Provider: MAGED OBRIEN Report Released Date/Time: May 11, 2024 11:48 AM Reporting Lab: [facility] [place] [facility] [address] [facility] [address] Performing Lab: [facility] [place] [facility] [address] [facility] [address] [facility] [place] [facility] CBC ERYTHROCYTE DISTRIBUTIO N WIDTH [RATIO] BY AUTOMATED COUNT 17.1 12.0 - 16.0 05/11 H Specimen Type: BLOOD No comment entered. Ordering Provider: MAGED OBRIEN Report Released Date/Time: May 11, 2024 11:48 AM Reporting Lab: [facility] [place] [facility] [address] [facility] [address] Performing Lab: [facility] [place] [facility] [address] [facility] [address] [facility] [place] [facility] CBC MCH [ENTITIC MASS] BY AUTOMATED COUNT 30.2 pg 26.2 - 32.6 05/11 Specimen Type: BLOOD No comment entered. Ordering Provider: MAGED OBRIEN Report Released Date/Time: May 11, 2024 11:48 AM Reporting Lab: [facility] [place] [facility] [address] [facility] [address] Performing Lab: [facility] [place] [facility] [address] [facility] [address] [facility] [place] [facility] FOLATE (WROX) FOLATE [MASS/VOLUM E] IN SERUM OR PLASMA 11.1 ng/mL 5.2 05/11 Specimen Type: SERUM No comment entered. Ordering Provider: MAGED OBRIEN Report Released Date/Time: May 11, 2024 11:48 AM Reporting Lab: [facility] [place] [facility] [address] [facility] [address] Performing Lab: [facility] [place] [facility] [address] [facility] [facility] [address] [facility] [place] [facility] LEVETIRAC ETAM (Keppra) LEVETIRACET AM [MASS/VOLUM E] IN SERUM OR PLASMA 8.3 ug/mL 6.0 - 46.0 05/11 Specimen Type: SERUM Comment: Brivaraceta m (Briviact(R ), Rikelta(R)) exhibits significant cross-react ivity in the Levetiracet am (Keppra(R), Spritam(R)) immunoassay . If Brivaraceta m has been prescribed, order test code 26219 Levetiracet am by LCMSMS. Test Performed by [facility], [facility], [address] [place] [address] Caleb Mullins M.D., Ph.D., Director of Laboratorie s , [facility] [id number] TEST PERFORMED AT: , Ordering Provider: MAGED OBRIEN Report Released Date/Time: May 11, 2024 11:48 AM Reporting Lab: [facility] [address] [facility] [address] Performing Lab: [facility]OSPITALUSETS [facility] [address] [address] [facility] [place] [facility] LIPID PANEL, NON FASTING CHOLESTEROL [MASS/VOLUM E] IN SERUM OR PLASMA 110 mg/dL 05/11 Specimen Type: SERUM No comment entered. Ordering Provider: MAGED OBRIEN Report Released Date/Time: May 11, 2024 11:48 AM Reporting Lab: [facility]OSPITALUSETS [facility] [address] [facility] [address] Performing Lab: [facility]N [facility]ITALUSE[facility] [address] [facility] [address] [facility]OSPITALTRN [facility]OS[facility]ITALUSE [facility] LIPID PANEL, NON FASTING TRIGLYCERID E [MASS/VOLUM E] IN SERUM OR PLASMA 84 mg/dL 0 - 150 05/11 Specimen Type: SERUM No comment entered. Ordering Provider: MAGED OBRIEN Report Released Date/Time: May 11, 2024 11:48 AM Reporting Lab: [facility]N [facility]OSPITALUSETS [facility] [address] [facility] [address] Performing Lab: [facility]PITALUSETS [facility] [address] [facility] [address] [facility]N [facility]OS[facility]ITALUSE [facility] LIPID PANEL, NON FASTING CHOLESTEROL IN LDL [MASS/VOLUM E] IN SERUM OR PLASMA BY CALCULATION 63 mg/dL 0 - 129 05/11 Specimen Type: SERUM No comment entered. Ordering Provider: MAGED OBRIEN Report Released Date/Time: May 11, 2024 11:48 AM Reporting Lab: [facility]OSPITALTRN [facility]PITALUSE[address] [address] Performing Lab: [facility]ITALUSE[address] [address] [facility]N [facility]ITALUSE [facility] LIPID PANEL, NON FASTING CHOLESTEROL .TOTAL/CHOL ESTEROL IN HDL [MASS RATIO] IN SERUM OR PLASMA 3.7 05/11 Specimen Type: SERUM No comment entered. Ordering Provider: MAGED OBRIEN Report Released Date/Time: May 11, 2024 11:48 AM Reporting Lab: [facility] [place] [facility] [address] [facility] [address] Performing Lab: [facility]ITALUSE[address] [address] [facility]N [facility]OSPITALUSE [facility] LIPID PANEL, NON FASTING CHOLESTEROL IN HDL [MASS/VOLUM E] IN SERUM OR PLASMA 30 mg/dL 40 - 60 05/11 L Specimen Type: SERUM No comment entered. Ordering Provider: MAGED OBRIEN Report Released Date/Time: May 11, 2024 11:48 AM Reporting Lab: [facility] [place] [facility] [address] [facility] [address] Performing Lab: [facility] [place] [facility] [address] [facility] [address] [facility] [place] [facility] LIVER FUNCTION PROTEIN [MASS/VOLUM E] IN SERUM OR PLASMA 7.4 g/dL 6.0 - 8.3 05/11 Specimen Type: SERUM No comment entered. Ordering Provider: MAGED OBRIEN Report Released Date/Time: May 11, 2024 11:48 AM Reporting Lab: [facility] [place] [facility] [address] [facility] [address] Performing Lab: [facility] [place] [facility] [address] [facility] [address] [facility] [place] [facility] LIVER FUNCTION ALBUMIN [MASS/VOLUM E] IN SERUM OR PLASMA 3.9 g/dL 3.5 - 5.0 05/11 Specimen Type: SERUM No comment entered. Ordering Provider: MAGED OBRIEN Report Released Date/Time: May 11, 2024 11:48 AM Reporting Lab: [facility] [place] [facility] [address] [facility] [address] Performing Lab: [facility] [place] [facility] [address] [facility] [address] [facility] [place] [facility] LIVER FUNCTION ALKALINE PHOSPHATASE [ENZYMATIC ACTIVITY/VO LUME] IN SERUM OR PLASMA 58 U/L 40 - 150 05/11 Specimen Type: SERUM No comment entered. Ordering Provider: MAGED OBRIEN Report Released Date/Time: May 11, 2024 11:48 AM Reporting Lab: [facility] [place] [facility] [address] [facility] [address] Performing Lab: [facility] [place] [facility] [address] [facility] [address] [facility] [place] [facility] LIVER FUNCTION ASPARTATE AMINOTRANSF ERASE [ENZYMATIC ACTIVITY/VO LUME] IN SERUM OR PLASMA 25 U/L 5 - 34 05/11 Specimen Type: SERUM No comment entered. Ordering Provider: MAGED OBRIEN Report Released Date/Time: May 11, 2024 11:48 AM Reporting Lab: [facility] [place] [facility] [address] [facility] [address] Performing Lab: [facility] [place] [facility] [address] [facility] [address] [facility] [place] [facility] LIVER FUNCTION ALANINE AMINOTRANSF ERASE [ENZYMATIC ACTIVITY/VO LUME] IN SERUM OR PLASMA 22 U/L 05/11 Specimen Type: SERUM No comment entered. Ordering Provider: MAGED OBRIEN Report Released Date/Time: May 11, 2024 11:48 AM Reporting Lab: [facility] [place] [facility] [address] [facility] [address] Performing Lab: [facility] [place] [facility] [address] [facility] [address] [facility] [place] [facility] LIVER FUNCTION BILIRUBIN.T OTAL [MASS/VOLUM E] IN SERUM OR PLASMA 1.3 mg/dL 0.2 - 1.2 05/11 H Specimen Type: SERUM No comment entered. Ordering Provider: MAGED OBRIEN Report Released Date/Time: May 11, 2024 11:48 AM Reporting Lab: [facility] [place] [facility] [address] [facility] [address] Performing Lab: [facility] [place] [facility] [address] [facility] [address] [facility] [place] [facility] LIVER FUNCTION BILIRUBIN.D IRECT [MASS/VOLUM E] IN SERUM OR PLASMA 0.5 mg/dL 0 - 0.5 05/11 Specimen Type: SERUM No comment entered. Ordering Provider: MAGED OBRIEN Report Released Date/Time: May 11, 2024 11:48 AM Reporting Lab: [facility] [place] [facility] [address] [facility] [address] Performing Lab: [facility] [place] [facility] [address] [facility] [address] [facility] [place] [facility] MAGNESIUM MAGNESIUM [MASS/VOLUM E] IN SERUM OR PLASMA 2.1 mg/dL 1.6 - 2.6 05/11 Specimen Type: SERUM No comment entered. Ordering Provider: MAGED OBRIEN Report Released Date/Time: May 11, 2024 11:48 AM Reporting Lab: [facility] [place] [facility] [address] [facility] [address] Performing Lab: [facility] [place] [facility] [address] [facility] [address] [facility] [place] [facility] VITAMIN B12 COBALAMIN (VITAMIN B12) [MASS/VOLUM E] IN SERUM OR PLASMA 714 pg/mL 200 - 900 05/11 Specimen Type: SERUM No comment entered. Ordering Provider: MAGED OBRIEN Report Released Date/Time: May 11, 2024 11:48 AM Reporting Lab: [facility] [place] [facility] [address] [facility] [address] Performing Lab: [facility] [place] [facility] [address] [facility] [address] [facility] [place] [facility] VITAMIN D (25-OH) 25-HYDROXYV ITAMIN D3 [MASS/VOLUM E] IN SERUM OR PLASMA 25 ng/mL 20 - 50 05/11 Specimen Type: SERUM No comment entered. Ordering Provider: MAGED OBRIEN Report Released Date/Time: May 11, 2024 11:48 AM Reporting Lab: [facility] [place] [facility] [address] [facility] [address] Performing Lab: [facility] [place] [facility] [address] [facility] [address] [facility] [place] [facility] Vital Signs Combined list of inpatient and outpatient Vital Signs from Department of Defense and Veterans Affairs, ranging from 12 months to all on record, depending upon the facility. Vital Sign Value Date Comments Source SYSTOLIC BLOOD PRESSURE 138 06/28/19 25 08:18:06 [facility] [place] [facility] DIASTOLIC BLOOD PRESSURE 80 025 08:18:06 [facility] [place] [facility] PULSE OXIMETRY 98 06/27/2024 08:18:06 [facility] [place] [facility] PAIN 3 06/27/2024 08:18:06 [facility] [place] [facility] TEMPERATURE 97.2 06/27/2024 08:18:06 [facility] [place] [facility] PULSE 80 06/27/2024 08:18:06 [facility] [place] [facility] SYSTOLIC BLOOD PRESSURE 145 06/24/19 25 10:40:53 [facility] [place] [facility] DIASTOLIC BLOOD PRESSURE 104 025 10:40:53 [facility] [place] [facility] PULSE 86 06/23/2024 10:40:53 [facility] [place] [facility] SYSTOLIC BLOOD PRESSURE 137 06/14/19 25 14:04:38 [facility] [place] [facility] DIASTOLIC BLOOD PRESSURE 87 025 14:04:38 [facility] [place] [facility] PULSE OXIMETRY 97 06/13/2024 14:04:38 [facility] [place] [facility] PAIN 0 06/13/2024 14:04:38 [facility] [place] [facility] PULSE 95 06/13/2024 14:04:38 [facility] [place] [facility] RESPIRATION 17 06/13/2024 14:04:38 [facility] [place] [facility] SYSTOLIC BLOOD PRESSURE 124 05/12/19 25 10:50:23 [facility] [place] [facility] DIASTOLIC BLOOD PRESSURE 79 025 10:50:23 [facility] [place] [facility] PULSE OXIMETRY 98 05/11/2024 10:50:23 [facility] [place] [facility] WEIGHT 320 05/11/2024 10:50:23 [facility] [place] BMI 40 kg/m2 05/11/2024 10:50:23 [facility] [place] [facility] PAIN 7 05/11/2024 10:50:23 [facility] [place] [facility] TEMPERATURE 97.8 05/11/2024 10:50:23 [facility] [place] [facility] PULSE 85 05/11/2024 10:50:23 [facility] [place] [facility] RESPIRATION 16 05/11/2024 10:50:23 [facility] [place] [facility] SYSTOLIC BLOOD PRESSURE 143 04/28/19 25 09:46:03 [facility] [place] [facility] DIASTOLIC BLOOD PRESSURE 82 025 09:46:03 [facility] [place] [facility] PULSE 88 04/27/2024 09:46:03 [facility] [place] [facility] Encounters Combined list of: 1) Encounters from Department of Veterans Affairs facilities going backup to the last 18 months, not all VA inpatient encounters are included; 2) Encounters from the Department of Community [facility] facilities going backup to 280 months. Location Location Details Encounter Type Encounter Number Reason For Visit Attending Provider ADM Date DC Date Status Disposition Source [facility] En[facility] [id number] 01[facility]14 [facility] [place] OFFICE O/P EST MOD 30-39 MIN [id number] Diagnos is: ICD-10- CM I48.21 Permane nt atrial fibrill ation Weston OBRIEN 01/23 [facility] [place] HC PRO PHONE CALL 5-10 MIN [id number] Diagnos is: ICD-10- CM E11.9 Type 2 diabete s mellitu s without complic ations ALEJANDRA SNYDER 01/23 [facility] En[facility] [id number] 03/16 [facility] En[facility] [id number] 03/27 [facility] En[facility] [id number] 04/02 [facility] OFFICE O/P EST MOD 30 MIN [id number] Diagnos is: ICD-10- CM L57.0 Actinic keratos is CLARK ZUNIGA 04/02 [facility] En[facility] [id number] 04/07 [facility] En[facility] [id number] 04/07 [facility] En[facility] [id number] 04/20 [facility] [place] [facility] COMPRE OPH EXAM EST PT 1/> [id number] Diagnos is: ICD-10- CM E11.9 Type 2 diabete s mellitu s without complic ations LUNA,LACE Y J 04/22 [facility] FIT SPECTACLES MONOFOCAL [id number] Diagnos is: ICD-10- CM Z46.0 Encount er for fit/adj st of spectac les and contact lenses CONNIE LUNA Y Camille [facility] En[facility] [id number] 04/27 [facility] En[facility] [id number] 07/16 [facility] OFFICE O/P EST MOD 30 MIN [id number] Diagnos is: ICD-10- CM R11.0 Nausea Weston OBRIEN 07/23 [facility] En[facility] [id number] 07/26 [facility] En[facility] [id number] 07/26 [facility] En[facility] [id number] 08/02 [facility] En[facility] [id number] 08/09 [facility] OFFICE O/P EST MOD 30 MIN [id number] Diagnos is: ICD-10- CM I48.21 Permane nt atrial fibrill ation OBRIEN,W JOZEF Camille 08/10 [facility] En[facility] [id number] 08/12 [facility] OFFICE O/P EST LOW 20 MIN [id number] Diagnos is: ICD-10- CM S88.112 S Complet e traum amp at lev betw clarissa and angel mendoza low leg, SANDI Castro 09/22 [facility] OFFICE O/P EST MOD 30 MIN [id number] Diagnos is: ICD-10- CM 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 EFRAINPREETCLARK 09/30 [facility] En[facility] [id number] 10/26 [facility] En[facility] [id number] 10/27 [facility] En[facility] [id number] 11/04 [facility] En[facility] [id number] 11/10 [facility] DIABETIC CUSTOM MOLDED SHOE [id number] 1. 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 Diagnos is: ICD-10- CM K63.5 Polyp of colon Weston OBRIEN 02/10 [facility] QNHP OL DIG ASSMT&MGMT 5-10 [id number] 1GF. 81 Diagnos is: ICD-10- CM Z04.89 Encount er for examina tion and observa tion for oth reasons EDGAR HENRIQUEZ 02/11 [facility] Out[facility] Encounter [id number] 03/16 [facility] MTMS BY PHARM ADDL 15 MIN [id number] Diagnos is: ICD-10- CM I10 Essenti al (primar y) hyperte nsion ALEJANDRA SNYDER A 03/16 [facility] OFF[facility] O/P EST LOW 20 MIN [id number] Diagnos is: ICD-10- CM E11.43 Type 2 diabete s w diabeti c autonom ic (poly)n europat hy SHERRY,SANDI MANCINI D 03/22 [facility] Out[facility] Encounter [id number] 04/22 [facility] MTMS BY PHARM ADDL 15 MIN [id number] Diagnos is: ICD-10- CM I10 Essenti al (primar y) hyperte nsion LILLIANALEJANDRA A 04/27 [facility] OFF[facility] O/P EST HI 40 MIN [id number] Diagnos is: ICD-10- CM L57.0 Actinic keratos is CLARK ZUNIGA 04/27 [facility] Out[facility] Encounter [id number] CLARK ZUNIGA 04/27 [facility] Encounter [id number] 04/28 [facility] Outpatient Encounter [id number] RADHA MARTINEZ MD 05/02 [facility] Outpatient Encounter [id number] RADHA MARTINEZ MD 05/02 [facility] OFFICE O/P EST MOD 30 MIN [id number] Diagnos is: ICD-10- CM E11.9 Type 2 diabete s mellitu s without complic ations CONNIE LUNA 05/03 [facility] [employer] S[employer]ACLES MONOFOCAL [id number] Diagnos is: ICD-10- CM Z46.0 Encount er for fit/adj st of spectac les and contact lenses CONNIE LUNA 05/03 [facility] Out[facility] Encounter [id number] 05/04 [facility] Encounter [id number] 05/06 [facility] Encounter [id number] 05/06 [facility] Encounter [id number] 05/09 [facility]counter [id number] 05/09 [facility] En[facility] [id number] 05/11 [facility] HCS OFFICE O/P EST HI 40 MIN [id number] Diagnos is: ICD-10- CM R56.9 Unspeci fied convuls ions [place]on OBRIEN JOZEF Camille 05/11 [facility] Encounter [id number] [facility] Out[facility] Encounter [id number] [facility] Out[facility] Encounter [id number] [facility] Out[facility] Encounter [id number] YOON BOB Melissa 05/19 [facility] PSYTX W PT 45 MINUTES [id number] Diagnos is: ICD-10- CM F41.9 Anxiety disorde r, unspeci MARY Priest R 05/24 [facility] Out[facility] Encounter [id number] 05/24 [facility] PH1 ASSMT&MGMT NQHP 5-10 [id number] Diagnos is: ICD-10- CM F41.9 Anxiety disorde r, unspeci MARY Priest R 06/01 [facility] Outpatient Encounter [id number] 06/07 [facility] (631GE) OFFICE O/P NEW HI 60 MIN [id number] Diagnos is: ICD-10- CM R56.9 Unspeci fied convuls ions DAVIDPERRIElbaDARRICKTimi AMMAD 06/13 [facility] (631GE) [facility] Outpatient Encounter [id number] YOON BOB A 06/15 [facility] Out[facility] Encounter [id number] 06/20 [facility] Out[facility] Encounter [id number] 06/22 [facility] Outpatient Encounter [id number] 06/23 [facility] MTMS BY PHARM ADDL 15 MIN [id number] Diagnos is: ICD-10- CM I10 Essenti al (primar y) hyperte nsion ALEJANDRA SNYDER A 06/23 [facility] OFF[facility] O/P EST LOW 20 MIN [id number] Diagnos is: ICD-10- CM E11.621 Type 2 diabete s mellitu s with foot ulcer SANDI POWELL 06/23 [facility] OFFICE O/P EST SF 10 MIN [id number] Diagnos is: ICD-10- CM E11.621 Type 2 diabete s mellitu s with foot ulcer SANDI POWELL RLES D 06/27 [facility] [place] [place] Social History Combined list of available smoking, tobacco, and other social history from Department of Defense and Veterans Affairs facilities. Social History Type Response Date Comment Source Tobacco smoking status [facility]-TOBACCO FORMER USER 07/24/2023 [facility] [place] [facility] of [facility] OR [facility] 07/24[facility]2023 [facility] [place] [facility] History of tobacco use [facility]TO[facility] FORMER USER 07/14/2022 [facility] [place] [facility] History of tobacco use NSG NO TOBACCO USE PAST 30 DAYS 09/12/2021 [facility] of [facility] 08/05/2021 [facility] [place] [facility] of [facility] < 15 YRS 09/09/2019 [facility] [place] [facility] History of tobacco use [facility]-TOBACCO QUIT 5 TO < 15 YRS 12/04/2017 [facility] [place] [facility] History of tobacco use QUIT TOBACCO USE > 7 YEARS AGO 05/29/2017 [facility] [place] [facility] History of tobacco use QUIT TOBACCO USE 1-7 YEARS AGO 04/23/2015 [facility] [place] [facility] History of tobacco use QUIT TOBACCO USE 1-7 YEARS AGO 03/06/2011 [facility] [place] [facility] History of tobacco use CURRENT SMOKER 04/08/2010 cigar once in a while [facility] [place] [facility] History of tobacco use CURRENT SMOKER 02/21/2009 cigar once in a while [facility] [place] [facility] History of tobacco use CURRENT SMOKER 01/10/2009 claimed he only smokes 2 cigars every 2 weeks [facility] History of tobacco use QUIT TOBACCO USE 1-7 YEARS AGO 12/16/2007 [facility] [place] [facility] History of tobacco use QUIT TOBACCO USE 1-7 YEARS AGO 04/01/2007 [facility] [place] [facility] History of tobacco use QUIT TOBACCO USE IN PAST YEAR 09/28/2006 [facility] History of tobacco use QUIT TOBACCO USE IN PAST YEAR 04/21/2006 [facility] History of tobacco use CURRENT SMOKER 12/16/2005 OCCASIONAL CIGAR [facility] History of tobacco use CURRENT SMOKER 05/19/2001 see below [facility] Plan of Care List of future care activities from Department of [facility] Affairs facilities. Additional future care activities may be listed in the Assessment and Plan section. Date/Time Care Activity Care Activity Detail Facili ty 07/19/2024 AMBULATORY - MEDICINE AMBULATORY - MEDICI NE [facility]
--- OUTSIDE RECORDS SUMMARY | 2024-06-29 12:30 | XMS_ITS | Encounter Summary ---
Author Organization [facility] Address [address] [place] [address] Care Team Providers Care Tobacco Cutter Name Role Phone Unknown, Primary Care Provider Unavailabl e Reason for Visit * Auth/Cert Inpatient Observation or Outpatient Surgery Specialty Diagnoses / Procedures Referred By Contac t Referred To Contact Procedures IA PERQ CLSR TCAT L ATR APNDGE W/ENDOCARDIAL IMPLNT Percutaneous Transcatheter Closure of the Left Atrial Appendage with Endocardial Implant [facility] Electrophysiology [address] [place] [address] Referral ID Status Reason Start Date Expiration Date Visits Re quested Visits Authorized [id number] 1 Encounter Details Date Type Department Care Team Description 01/07/2024 2:45 PM EST Hospital Encounter Cardiology Services [address] [place] [address] Dannie Pan MD [address] [facility] [phone],161 [place] [address] Social History Tobacco Use Types Packs/Day Years [...] on filedocumented in this encounter Care Teams Tobacco Cutter Relationship Specialty Start Date End Date Unknown, PCP - General 01/01/24 documented as of this encounter
--- OUTSIDE RECORDS SUMMARY | 2024-06-29 12:30 | XMS_ITS | Clinical Summary ---
Author Organization [facility] Address [address] [place] [address] Care Team Providers Care Insole Stiffener Name Role Phone Unknown, Md Primary Care [...] age to complete this topic Care Teams Insole Stiffener Relationship Specialty Start Date End Date Unknown, PCP - General 01/01/24
--- OUTSIDE RECORDS SUMMARY | 2024-06-29 12:30 | XMS_ITS | Encounter Summary ---
Author Organization [facility] Address [address] [place] [address] Care Team Providers Care Extractions Technologist Name Role Phone Pcp, No Primary Care Provider Unavailabl e Encounter Details Date Type Department Care Team (Late st Contact Info) Description 06/20/2024 Orders Only Orthopedic [place] [phone] Slick Weinstein MD [address] [place], [place] [phone] Social History Tobacco Use Types Packs/Day Years [...] 07/12/2024 9:45 AM EDT Office Visit Orthopedic [address] [address] Slick Weinstein MD [address] [place] [id number] documented as of this encounter Visit Diagnoses Not on filedocumented in this encounter Care Teams Extractions Technologist Relationship Specialty Start Date End Date Pcp, No PCP - General General Medicine 06/16/23 documented as of this encounter
--- OUTSIDE RECORDS SUMMARY | 2024-06-29 12:30 | XMS_ITS ---
Author Name [facility] Address [address] [place] [address] Care Team Providers Care Lpn Private Duty Name Role Phone JOHNY GOMEZ Primary Care [...] JESSE FAMIL Y Mar 07, [phone] [id number] [phone] JAY KRISHNA PATIENT ANTHEM BCBS FEDERAL PREFERRED PROVIDER ORGANIZAT ION (PPO) STAND JESSE FAMIL Y Mar 07, 2000 105 [id number] JAY KRISHNA PATIENT ANTHEM BCBS FEDERAL PREFERRED PROVIDER ORGANIZAT ION (PPO) STAND JESSE SELF Mar 07, 2000 105 [id number] JAY KRISHNA PATIENT BCBS [place] FEP PREFERRED PROVIDER ORGANIZAT ION (PPO) PSHB STAND JESSE FAMIL Y Feb 24, 2024 [id number] JAY KRISHNA PATIENT [place] PREFERRED PROVIDER ORGANIZAT ION (PPO) PSHB STAND JESSE FAMIL Y Feb 24, 2024 [id number] JAY KRISHNA PATIENT [place] DENTAL DENTAL INSURANCE STAND JESSE Mar 07, 2000 DENTAL [id number] JAY KRISHNA PATIENT [place] FEDERAL PREFERRED PROVIDER ORGANIZAT ION (PPO) PSHB STAND JESSE FAMIL Y Feb 24, 2024 33E [id number] JAY KRISHNA PATIENT [place] FEP BCBS PRESCRIPT ION [place] FEPRX PLAN Mar 07, 2000 [id number] JAY KRISHNA PATIENT [place] FEPRX PLAN PRESCRIPT ION [place] FEPRX Feb 23, 2010 [id number] JAY KRISHNA PATIENT [place] FEPRX PLAN PRESCRIPT ION [place] FEPRX Mar 07, 2000 [id number] [phone] JAY KRISHNA PATIENT [place]-F EP BCBS PRESCRIPT ION BCBS FEP Feb 23, 2010 [id number] JAY KRISHNA PATIENT MEDICARE ([facility] MEDICARE () PART A May 25, 2011 PART A [id number] [phone] JAY KRISHNA PATIENT MEDICARE ([facility]) MEDICARE () PART A May 25, 2011 PART A [id number] JAY KRISHNA PATIENT MEDICARE ([facility]) MEDICARE () PART A May 25, 2011 PART A [id number] JAY KRISHNA PATIENT MEDICARE ([facility]) MEDICARE () PART A May 25, 2011 PART A [id number] JAY KRISHNA PATIENT MEDICARE ([facility]) MEDICARE () PART A May 25, 2011 PART A [id number] [phone] JAY KRISHNA PATIENT MEDICARE ([facility]) MEDICARE () PART A May 25, 2011 PART A [id number] JAY KRISHNA PATIENT MEDICARE (WNR) MEDICARE (M) PART A May 25, 2011 PART A [id number] JAY KRISHNA PATIENT MEDICARE (WNR) MEDICARE (M) PART A May 25, 2011 PART A [id number] JAY KRISHNA PATIENT Selected Encounter This section includes the information on record at [place] for the Encounter. Date/Time Encounter Type Encounter Description Reason Pro vider Source Nov 05, 2023 07:21 AM Outpatient Encounter [facility]ITY [facility]ARE CONSULT IHE Encounter Template Text not used by [place] Plan of Treatment: Future Appointments (+ 6 months) and Future Tests (+/- 45 days) The Plan of Treatment section includes future care activities for the [facility] [place] [facility] This section includes future appointments and [...] 25, 2023 11:30 AM AMBULATORY [place]ICINE [place] [facility] [place] [place] [facility] Feb 11, 2024 10:00 AM AM[place]UL[place]ORY [place]ICINE [place] [facility] [place] [facility] Mar 16, 2024 10:00 AM AM[place]ORY [place]ICINE [place] [facility] [place] [facility] Mar 22, 2024 08:30 AM AM[place]ORY [place]ICINE [place] [facility] [place] [facility] Apr 27, 2024 09:30 AM [place]ORY [place]ICINE [place] [facility] [place] [facility] Apr 27, 2024 10:00 AM [place]ORY [place] [facility] [place] [facility] Apr 28, 2024 09:30 AM AM[place]ORY [place]ICINE [place] [facility] [place] [facility] May 03, 2024 08:00 AM AMBULATORY - MEDICINE [facility] [place] [facility] Social History: Smoking Status (Most [...] 24, 2023 10:00 AM [facility] [place] [facility] Tobacco Use History This section includes a history of the smoking, or tobacco-related health factors, that were collected on or before the date of the Encounter. The data comes from the [place] facility where the Encounter took place. Date/Time Smoking Status/Tobac co Use Comment Facility July 24, 2023 10:00 AM VA-TOBACCO QUIT 15 YRS OR MORE [place] [facility] [place] [facility] July 14, 2022 03:30 PM VA-TOBACCO FORMER USER [place] [facility] [place] [facility] July 14, 2022 03:30 PM VA-TOBACCO QUIT 15 YRS OR MORE [place] [facility] [place] [place] [facility] Aug 05, 2021 01:00 PM VA-TOBACCO FORMER USER [place] [facility] [place] [facility] Aug 05, 2021 01:00 PM VA-TOBACCO QUIT 5 TO < 15 YRS [place] [facility] [place] [facility] Sep 09, 2019 01:25 PM VA-TOBACCO FORMER USER [place] [facility] [place] [place] [facility] Sep 09, 2019 01:25 PM VA-TOBACCO QUIT 5 TO < 15 YRS [place] [facility] [place] [facility] Dec 04, 2017 10:18 AM VA-TOBACCO FORMER USER [place] [facility] [place] [place] [facility] Dec 04, 2017 10:18 AM VA-TOBACCO QUIT 5 TO < 15 YRS [place] [facility] [facility] May 29, 2017 09:09 AM QUIT TOBACCO USE > 7 YEARS AGO [place] [facility] [place] [facility] Apr 23, 2015 08:21 AM QUIT TOBACCO USE > 7 YEARS AGO [place] [facility] [place] [facility] Apr 23, 2015 08:21 AM QUIT TOBACCO USE 1-7 YEARS AGO [place] [facility] [place] [facility] Mar 06, 2011 11:06 AM QUIT TOBACCO USE 1-7 YEARS AGO [place] [facility] [place] [place] [facility] Apr 08, 2010 10:56 AM CURRENT SMOKER cigar once in a while [place] [facility] [place] [facility] Apr 08, 2010 10:56 AM V1-PT DECLINES REF TO TOBACCO CESS [facility] Apr 08, 2010 10:56 AM V1-PT DECLINES TOBACCO CESSATION MEDS [facility] Apr 08, 2010 10:56 AM V1-PT READY TO QUIT TOBACCO USE [facility] Feb 21, 2009 09:16 AM CURRENT SMOKER cigar once in a while [facility] Feb 21, 2009 09:16 AM V1-PT DECLINES REF TO TOBACCO CESS PRGM [facility] Feb 21, 2009 09:16 AM V1-PT DECLINES TOBACCO CESSATION MEDS [facility] Feb 21, 2009 09:16 AM V1-PT THINKING ABOUT QUIT TOBACCO USE [facility] Dec 16, 2007 09:15 AM QUIT TOBACCO USE 1-7 YEARS AGO [facility] Apr 01, 2007 11:08 AM QUIT TOBACCO USE 1-7 YEARS AGO [facility] Sep 28, 2006 08:52 AM QUIT TOBACCO USE IN PAST YEAR [facility] Apr 21, 2006 10:31 AM QUIT TOBACCO USE IN PAST YEAR August 2005 [facility] Dec 16, 2005 10:02 AM CURRENT SMOKER OCCASIONAL CIGAR [facility] May 19, 2001 03:50 PM CURRENT SMOKER see below [facility] Encounter Notes: All associated encounter notes This section contains the clinical notes associated to the Encounter. Date/Time Encounter Note(s) Provider Source Nov 05, 2023 07:21 AM NONVA NOTE: LOCAL TITLE: COMMUNITY CARE-CONSTANTIN SELF PRESENTING CARE COORD PLAN STANDARD TITLE: NONVA NOTE DATE OF NOTE: NOV 05, 2023@07:21 ENTRY DATE: NOV 05, 2023@07:21:25 AUTHOR: LUIZA WOO COSIGNER: URGENCY: STATUS: COMPLETED [facility] CARE-CONSTANTIN SELF PRESENTING CARE COORD PLAN NOTE Has ADDENDA Emergency Notification Intake Date Presenting to the Facility: Oct Method of Contact: Notified from [facility] worklist Notification ID: [id number] [facility] Referral [facility]: [facility] Name: Hospital: [facility] Address: City: [place] State: [place] Zip Code: Phone : Community Facility Point of Contact: Name: Phone: Chief complaint: K92.2 Primary Diagnosis: Disposition Admitted Route of Admission: [facility] Date of Admission: Oct Admitting Diagnosis: K92.2 [facility] Provider: Isidro Level of Care: /daniela/ LUIZA WOO CARE IN THE COMMUNITY RELATIONS Signed: 11/05/2023 07:23 Receipt Acknowledged By: 11/11/2023 10:33 /es/ Amara Tompkins MSN,RN,CCM TRANSFER/TRAVELING COORDINATOR 11/05/2023 07:58 /es/ Johny Gomez DNP, CLIENT SUPPORT MANAGER-BC, CNL Primary Care Nurse Practitioner 11/05/2023 07:28 /es/ Ary ANDERSON RN CNL Primary Care RN 11/11/2023 ADDENDUM STATUS: COMPLETED Discharge Disposition Date of discharge: Oct Disposition Discharge to home /daniela/ Amara Tompkins MSN,RN,[facility] TRANSFER/TRAVELING COORDINATOR Signed: [...] had this done 7 days ago at [facility] which showed 2 small polyps which [...] Care RN Signed: 01/29/2024 14:24 LUIZA WOO [place]
== END 2024-06-29 11:40 | disposition home or self-care (01) ==
LOC: HO.HUSH 11:03
PROVIDERS: PCP Internal Medicine; Visit Provider Nurse Practitioner Family
DX: Z13.9 Encounter for screening, unspecified (principal); R33.9 Retention of urine, unspecified
CPT/HCPCS: 99203

== ENCOUNTER → 2024-06-29 11:03 | Outpatient (BNVA) | payer BC, SELFPAY | PROVIDERS: PCP Internal Medicine; Visit Provider Nurse Practitioner Family | DX: R33.9 Retention of urine, unspecified (principal) | CPT/HCPCS: 51798; 81003 ==